=== PATIENT | female | born 1955 | race Caucasian/White ===

== ENCOUNTER → 2017-01-04 | Outpatient (CLI) | payer BC ==
--- NOTE | 2017-01-04 11:33 | CT ---
EXAMINATION TYPE: CT ChestAbdPelvis w con DATE OF EXAM: 01/04/2017 9:53 AM INDICATION: Ovarian cancer COMPARISON: 07/06/2016 CT DLP: 1416.60 mGycm CONTRAST: Performed with Oral Contrast and with IV Contrast, patient injected with 100 ml mL of Omnipaque 300. TECHNIQUE: Axial images at 5 mm thick sections. Reconstructed images in the coronal plane. Delayed images through the kidneys. FINDINGS: CT CHEST: Portion of the thyroid visualized is normal. No suspicious lung nodules or focal infiltrates are present. There is a 0.8 cm calcified granuloma po sterior lateral left mid lung. This appears increasing calcification from the comparison. No enlarged mediastinal or hilar adenopathy is evident. The ascending aorta diameter at the level of the main pulmonary artery is 3.5 cm. The main pulmonary artery diameter at the bifurcation is 3.[address] ABDOMEN: There is a right upper quadrant anterior abdominal wall hernia containing nondilated loop s of contrast-filled colon. Liver: Normal Spleen: Scattered calcified granuloma are within the spleen. Pancreas: Normal Adrenal glands: The adrenal glands are normal. Gallbladder: Surgically absent Kidneys: No masses are evident. No hydronephrosis is present. No cysts are present. Delayed images were obtained through the kidneys, which remain unremarkable. Aorta: Vascular calcification is within the aorta. Inferior vena cava: Normal. CT PELVIS: There is a persistent very low density area within the left psoas muscle adjacent to the i liac wing could represent an air collection which is similar to prior study. Loops of bowel within the abdomen and pelvis are normal. There are loops of bowel which are incom pletely distended or lack oral contrast limiting their evaluation. Appendix: Not visualized Urinary bladder: Normal. Genitourinary structures: Uterus is not identified. Adnexal regions are unremarkable. No free fluid i s within the pelvis. No omental caking is identified. Paracolic gutters appear unremarkable. Osseous structures: No suspicious lytic or sclerotic lesions. IMPRESSIONS: 1. No suspicious changes to suggest metastatic disease. 2. Abdominal wall hernia containing nondilated contrast filled loop of colon is stable from prior.
== END | disposition home or self-care (01) ==
LOC: RADCTMAIN 09:10
PROVIDERS: ATTEND Internal Medicine Hematology & Oncology
DX: C56.1 Malignant neoplasm of right ovary (principal); K43.9 Ventral hernia without obstruction or gangrene
CPT/HCPCS: 71260; 74177; Q9967

== ENCOUNTER → 2017-04-26 | Outpatient (CLI) | payer BC ==
--- NOTE | 2017-04-26 08:39 | CT ---
EXAMINATION TYPE: CT abdomen pelvis w con DATE OF EXAM: 04/26/2017 REFERENCE: Previous CT scan of the chest, abdomen and pelvis dated 01/04/2017. HISTORY: C56.1 ovarian ca HISTORY: Right upper quadrant swelling REFERENCE: NONE CT DLP: 1491 mGy Automated exposure control for dose reduction was used. TECHNIQUE: Helical acquisition through the abdomen and pelvis was obtained following the oral ingesti on of with Oral Contrast and following intravenous administration of 100 mL of Omnipaque 300. The edna a was reformatted in axial, coronal and sagittal projections. FINDINGS: There is minor atelectatic change in the right middle lobe. There is no pleural or pericar dial fluid. The heart is mildly enlarged. Within the abdomen, the liver is prominent measuring 18 cm. This is largely due to a prominent Annika 's lobe. The gallbladder is been removed. There is evidence of old granulomatous disease in the splee n. The pancreas appears normal. Both adrenal glands appear normal. Both kidneys demonstrate function and appear morphologically normal. There is no significant retroperitoneal, iliac or inguinal adenopathy. The bladder is not distended. The uterus and ovaries are not visualized. There is asymmetric thickening of the rectum with the right-sided soft tissues being more prominent t cao the left. There is diffuse thickening of the sigmoid colon and the entire left side of the colon as well as the transverse colon. There is a right paracentral ventral hernia with large bowel peaking into it. The mouth measures 3.5 cm. This is unchanged from previous. A second ventral hernia within the pelvis is present. This contains small bowel. The mouth measures 1.6 cm. The amount of herniated bowel slightly more prominent than on the previous study. Small bowel loops are otherwise normal. No free fluid and no free air is seen. No bony destructive lesion is seen. IMPRESSION: 1. 2 VENTRAL HERNIAS DESCRIBED. SMALL BOWEL PROJECTING INTO THE LOWER HERNIA HAS INCREASED SLIGHT LY FROM PREVIOUS. 2. MILD CARDIOMEGALY. 3. OLD GRANULOMATOUS DISEASE OF THE SPLEEN. 4. ASYMMETRIC THICKENING OF THE RECTUM AND THICKENING OF THE MUCOSAL THROUGHOUT THE LEFT SIDE OF THE COLON INCLUDING THE TRANSVERSE COLON. I COULD NOT EXCLUDE COLITIS. DIRECT VISUALIZATION WOULD BE NATY DAWSON.
== END | disposition home or self-care (01) ==
LOC: RADCTMAIN 07:57
PROVIDERS: ATTEND Internal Medicine Hematology & Oncology
DX: C56.9 Malignant neoplasm of unspecified ovary (principal); K43.9 Ventral hernia without obstruction or gangrene; K63.89 Other specified diseases of intestine
CPT/HCPCS: 74177; Q9967

== ENCOUNTER 2017-05-31 11:47 | Day surgery (SDC) | payer BC ==
[2017-05-25 14:19] VITALS: BMI 30.7
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
[~2017-05-31 11:47] MED LIST: LACTATED RINGERS 1,000 ML IV SCH
[2017-05-31 12:11] VITALS: TEMP 97.4
[2017-05-31] MEDS ORDERED: PROPOFOL 10 MG/ML 20 ML VIAL IV ONE (12:48)
[2017-05-31] MEDS ORDERED: LIDOCAINE 1% INJ 10MG/ML (20 ML MDV) ONE (12:48)
--- NOTE | 2017-05-31 13:16 | P.PCN ---
Date of Procedure: 05/31/17 Preoperative Diagnosis: Postoperative Diagnosis: Procedure(s) Performed: PREOPERATIVE DIAGNOSIS: Yoon's, GERD, screening POSTOPERATIVE DIAGNOSIS: Mild gastritis, small hiatal hernia, Yoon's esophagus, normal colon PROCEDURE: 1. EGD with biopsy 2. Colonoscopy ANESTHESIA: [facility] [place], [place] SURGEON: Reginaldo Keller M.D. SPECIMENS: Antrum, Yoon's ENDOSCOPIC PROCEDURE: The patient was on the endoscopy table in the left decubitus position. The Olympus gastroscope was inserted into the oropharynx and passed under direct visualization to the region of the third portion of the duodenum. From that point the scope was slowly withdrawn inspecting all surfaces carefully. There were no neoplastic inflammatory or polypoid lesions throughout the duodenum. The pylorus was widely patent. The stomach was carefully inspected. There was mild gastritis present. A biopsy of the antrum took place to rule out H. pylori. Retroflexion revealed a small hiatal hernia. The esophagus was examined. The patient had a long segment approximately 4-5 cm of Yoon's changes. Biopsies are taken every 1 cm. The remainder the esophagus appear normal. There were no ulcerations or erosions present. There is no mass lesion. The patient was kept on the endoscopy table in the left decubitus position. The Olympus colonoscope was inserted into the anus and passed under direct visualization to the base of the cecum. The appendiceal orifice was visualized. From that point the scope was slowly withdrawn inspecting all surfaces carefully. There were no neoplastic inflammatory or polypoid lesions throughout the cecum, ascending, transverse, descending, sigmoid and rectum. There was no diverticulosis noted. Digital rectal examination was normal. The patient was taken to the recovery room in stable condition per anesthesia guidelines. RECOMMENDATIONS: Await biopsy results. Consider follow-up upper endoscopy in 2- 3 years. We'll further discuss incisional herniorrhaphy with the patient. Implants: Indications for Procedure: Operative Findings: Description of Procedure:
[2017-05-31 13:20] VITALS: RESP 18
[2017-05-31 13:52] VITALS: BP 164/71; PULSE 57
== END 2017-05-31 14:10 | disposition home or self-care (01) ==
LOC: ORWHC2ENDO 11:47
PROVIDERS: ATTEND Surgery
DX: Z12.11 Encounter for screening for malignant neoplasm of colon (principal); K22.70 Barrett's esophagus without dysplasia; K29.50 Unspecified chronic gastritis without bleeding; K44.9 Diaphragmatic hernia without obstruction or gangrene; K21.9 Gastro-esophageal reflux disease without esophagitis; J44.9 Chronic obstructive pulmonary disease, unspecified; E78.5 Hyperlipidemia, unspecified; I10 Essential (primary) hypertension; E07.9 Disorder of thyroid, unspecified; K58.9 Irritable bowel syndrome, unspecified; M54.9 Dorsalgia, unspecified; G89.29 Other chronic pain; Z85.43 Personal history of malignant neoplasm of ovary; Z92.21 Personal history of antineoplastic chemotherapy; Z79.51 Long term (current) use of inhaled steroids; Z79.899 Other long term (current) drug therapy; Z88.1 Allergy status to other antibiotic agents
CPT/HCPCS: 88305; 88342; 43239; J2001; J2704; G0121

== ENCOUNTER → 2017-08-02 | Outpatient (CLI) | payer BC ==
[2017-08-02 08:02] LABS: EKG EKG PERFORMED
[2017-08-02 08:37] LABS: Potassium 4.5 mmol/L (3.5-5.1)
== END | disposition home or self-care (01) ==
LOC: LABPAT 07:30
PROVIDERS: ATTEND Anesthesiology
DX: Z01.810 Encounter for preprocedural cardiovascular examination (principal); Z01.812 Encounter for preprocedural laboratory examination
CPT/HCPCS: 36415; 84132; 93005

== ENCOUNTER 2017-08-03 06:41 | Observation (INO) | payer BC ==
[2017-07-31 15:45] VITALS: BMI 31.7
[~2017-08-03 06:41] MED LIST changes: +DEXAMETHASONE SOD PHOSPHATE 10 MG/ML 1 ML VIAL IV ONE; +HEPARIN SODIUM,PORCINE 5,000 UNIT/ML 1 ML VIAL SQ ONE; +MIDAZOLAM 2 MG/2 ML VIAL IV PRN; +ONDANSETRON 4 MG/2 ML VIAL IVP ONE; +SCOPOLAMINE 1.5MG/72HR PATCH TRANSDERM ONE; +ceFAZolin 2 GM in SODIUM CHLORIDE 0.9% 100 ML IVPB ONE
[2017-08-03] MEDS ORDERED: MIDAZOLAM 2 MG/2 ML VIAL IVP ONE ×2 (07:22→07:25)
[2017-08-03] MEDS ORDERED: FAMOTIDINE 20 MG/2 ML VIAL IVP ONE (07:22)
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
[2017-08-03] MEDS ORDERED: VECURONIUM 10 MG VIAL IV ONE (07:53)
[2017-08-03] MEDS ORDERED: NEOSTIGMINE 1 MG/ML 10 ML VIAL ONE (07:53)
[2017-08-03] MEDS ORDERED: LIDOCAINE 1% INJ 10MG/ML (20 ML MDV) ONE (07:53)
[2017-08-03] MEDS ORDERED: PROPOFOL 10 MG/ML 20 ML VIAL IV ONE (07:53)
[2017-08-03] MEDS ORDERED: MIDAZOLAM 2 MG/2 ML VIAL ONE (07:53)
[2017-08-03] MEDS ORDERED: SUCCINYLCHOLINE CHLORIDE 100 MG/5 ML SYR IV ONE (07:53)
[2017-08-03] MEDS ORDERED: GLYCOPYRROLATE 0.2 MG/ML 2 ML VIAL ONE (07:53)
[2017-08-03] MEDS ORDERED: fentaNYL (PF) 50 MCG/ML 2 ML AMP ONE (07:53)
[2017-08-03] MEDS ORDERED: HYDROmorphone (PF) 1 MG/ML ONE (07:53)
[2017-08-03] MEDS ORDERED: BUPIVACAINE-EPI 0.5%-1:200,000 10 ML VIAL SQ ONE ×2 (08:17)
[2017-08-03] MEDS ORDERED: LACTATED RINGERS 1,000 ML IV ONE (09:31)
[2017-08-03] MEDS: HYDROmorphone 1 MG/ML 1 ML SYRINGE IVP PRN ×6 (10:43→23:46)
[2017-08-03] MEDS ORDERED: NALOXONE 0.4 MG/ML 1 ML VIAL IV PRN (11:03)
[2017-08-03] MEDS ORDERED: ONDANSETRON 4 MG/2 ML VIAL IVP PRN (11:03)
--- NOTE | 2017-08-03 11:13 | P.OP ---
Date of Procedure: 08/03/17 Preoperative Diagnosis: Postoperative Diagnosis: Procedure(s) Performed: PREOPERATIVE DIAGNOSIS: Incarcerated incisional hernia 2 POSTOPERATIVE DIAGNOSIS: Same PROCEDURE: Repair incarcerated incisional hernia 2 with mesh SURGEON: Krishna EBL: Minimal ANESTHESIA: General COMPLICATIONS: None OPERATIVE PROCEDURE: Patient was placed in the operating table in the supine position. The patient was placed under general anesthesia at that time. The upper abdominal incision was first addressed. The prior incision was incised using a scalpel. Dissection through the saphenous fat took place using electrocautery. The patient's hernia sac was identified and excised. The defect measured 6 x 4 cm oval in shape horizontal. There were some adhesions to the bowel that was present within the hernia sac. These were lysed sharply. There were some adhesions between the bowel and the undersurface of the fascia circumferentially that were also lysed. Once I had adequate dissection a Ventrio ST patch was utilized measuring proximally 11 cm. This was sutured to the fascia using trans-fascial 2-0 Nurolon sutures. Care was taken to avoid injury to the small bowel. Once the mesh was secured the fascia was closed horizontally using [id number] 0 Ethibond sutures. A drain was placed above the level of the fascia exiting through the right mid abdominal wall. This was sutured to the skin using a 2-0 Nurolon stitch. Subcutaneous tissues at the operative site were closed using 3-0 Vicryl sutures. The skin was closed using les. Our gloves were changed at that time. Next a small vertical incision was made in the suprapubic location. Dissection through the subcutaneous tissues took place using Q cautery. A small incarcerated hernia was identified and the hernia sac was removed. Adhesions were again lysed sharply. A 4.3 cm ventral X mesh was utilized. This was sutured to the fascia using 2-0 Nurolon trans-fascial sutures as well. The fascial defect was closed horizontally using [id number] 0 Ethibond sutures. The subcutaneous tissues were closed using 3-0 Vicryl sutures and the skin again closed using les. Sterile dressings were applied. DISPOSITION: Stable to recovery room Implants: Indications for Procedure: Operative Findings: Description of Procedure:
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
[2017-08-03] MEDS: ETODOLAC 200 MG CAPSULE PO SCH ×2 (16:14→20:27)
[2017-08-03] MEDS: D5-0.45% NACL WITH KCL 20MEQ/L 1,000 ML IV SCH ×2 (16:14→23:59)
[2017-08-03] MEDS: HEPARIN SODIUM,PORCINE 5,000 UNIT/ML 1 ML VIAL SQ SCH ×2 (16:17→23:48)
[2017-08-03] MEDS: PRAVASTATIN SODIUM 40 MG TAB PO SCH (20:25)
[2017-08-03] MEDS: FAMOTIDINE 20 MG TAB PO SCH (20:26)
[2017-08-03] MEDS: SYMBICORT 160-4.5 MCG INHALER INHALATION SCH (20:42)
[2017-08-03] MEDS ORDERED: ATENOLOL 25 MG TAB PO SCH (21:00)
[2017-08-03] MEDS ORDERED: ALPRAZolam 0.25 MG TAB PO PRN (21:00)
[2017-08-04] MEDS: HYDROmorphone 1 MG/ML 1 ML SYRINGE IVP PRN ×5 (03:20→22:20)
[2017-08-04] MEDS: IPRATROPIUM-ALBUTEROL 3 ML NEB INHALATION SCH ×4 (06:02→19:41)
[2017-08-04] MEDS: LEVOTHYROXINE 88 MCG TAB PO SCH (06:13)
[2017-08-04 06:40] LABS: Basophils % (A) 0 %; CH 33.1; CHCM 33.4; Eosinophils % (A) 0 %; HGB 12.1 gm/dL (11.4-16.0); Luc # (Auto) 0.16; Luc % (Auto) 2; Lymphocytes # (A) 1.2 k/uL (1.0-4.8); Lymphocytes % (A) 13 %; MCH 34.4 pg (25.0-35.0); MCHC 34.5 g/dL (31.0-37.0); MCV 99.7 fL (80.0-100.0); Mean Platelet Volume 6.9; Monocytes # (A) 0.5 k/uL (0-1.0); Monocytes % (A) 6 %; Neutrophils # (A) 7.5 k/uL (1.3-7.7); Neutrophils % (A) 80 %; RBC 3.51 m/uL (3.80-5.40); RDW 12.6 % (11.5-15.5); WBC 9.5 k/uL (3.8-10.6); WBC (Perox) 9.68
[2017-08-04 06:56] LABS: Anion Gap 6 mmol/L; Blood Urea Nitrogen 11 mg/dL (7-17); Calcium 9.4 mg/dL (8.4-10.2); Carbon Dioxide 26 mmol/L (22-30); Chloride 106 mmol/L (98-107); Glucose 115 mg/dL (74-99); Non-African American GFR(MDRD) >60 (>60 ml/min/1.73 sqM); Potassium 4.6 mmol/L (3.5-5.1); Sodium 138 mmol/L (137-145)
[2017-08-04] MEDS: D5-0.45% NACL WITH KCL 20MEQ/L 1,000 ML IV SCH ×3 (08:06→18:41)
[2017-08-04] MEDS: HEPARIN SODIUM,PORCINE 5,000 UNIT/ML 1 ML VIAL SQ SCH ×2 (08:18→17:17)
[2017-08-04] MEDS: POTASSIUM CHLORIDE ER 10 MEQ TAB.ER.PRT PO SCH (08:19)
[2017-08-04] MEDS: FUROSEMIDE 40 MG TAB PO SCH (08:19)
[2017-08-04] MEDS: ETODOLAC 200 MG CAPSULE PO SCH ×3 (08:19→22:10)
[2017-08-04] MEDS: FAMOTIDINE 20 MG TAB PO SCH ×2 (08:19→19:52)
[2017-08-04] MEDS: HYDROcodone/APAP 5-325MG 1 EACH TAB PO PRN ×2 (08:20→19:50)
[2017-08-04] MEDS ORDERED: PANTOPRAZOLE 40 MG/10 ML VIAL IV SCH (09:00)
[2017-08-04] MEDS ORDERED: LOSARTAN 25 MG TAB PO SCH (09:00)
[2017-08-04] MEDS: SYMBICORT 160-4.5 MCG INHALER INHALATION SCH ×2 (09:41→19:41)
[2017-08-04] MEDS ORDERED: MULTIVITAMINS, THERA 1 EACH TAB PO SCH (12:00)
--- NOTE | 2017-08-04 12:29 | P.PN ---
Subjective This is a pleasant 62-year-old female who underwent elective incisional hernia repair x2 with mesh with Dr. Keller on 08-03-17. Dr. Fisher was consulted for medical management. Patient is a history of hypertension, hyperlipidemia, hypothyroidism, COPD, GERD cholecystectomy and hysterectomy due to ovarian cancer through midline incisions. 08/04/2017: Patient is resting comfortably today. Her daughter and sister are at bedside. She hasn't really eaten much. She indicates she's been getting up frequently for toileting on her own. Her pain is improved. If switched her from Dilaudid to [place]. She denies any chest pains pressures or shortness of breath. She is complaining of some flushing today to her chest and face. This seems to be started after the [place]. Objective - Vital Signs Vital signs: Vital Signs Temp 97.7 F 08/04/17 11:30 Pulse 55 L 08/04/17 11:30 Resp 20 08/04/17 11:30 BP 120/68 08/04/17 11:30 Pulse Ox 95 08/04/17 11:30 Intake & Output 08/03/17 08/04/17 08/04/17 18:59 06:59 18:59 Intake Total 1740 1200 400 Output Total 155 25 Balance 1585 1175 400 Intake: IV 1500 Oral 240 1200 400 Output: Drainage 55 25 Right Upper Abdomen 55 25 Urine 50 Estimated Blood Loss 50 Other: # Voids 1 2 1 - Exam General: The patient is awake and alert, in no distress, and does not appear acutely ill. Neck: The neck is supple, there is no thyromegaly, lymphadenopathy, tenderness or JVD. Cardiovascular: S1S2 is normal, There is a regular rate and rhythm. No murmur, rub or gallop is appreciated. Respiratory: Lungs are somewhat coarse to auscultation bilaterally, respirations are non-labored, breath sounds are equal. Gastrointestinal: Soft, non-distended, abdominal binder in place, TASHA drain in place. Further exam was deferred to surgery. Musculoskeletal: Normal ROM, no tenderness, There is no pedal edema. There is no calf tenderness or swelling. No cords were appreciated. Neurological: CN II-XII intact, there are no obvious motor or sensory deficits. Coordination appears grossly intact. Speech is normal. Skin: Skin is warm and dry and erythematous to the cheeks and chest. This is blanchable pressure. - Labs CBC & Chem 7: 08/04/17 06:18 08/04/17 06:18 Labs: Abnormal Lab Results - Last 24 Hours (Table) 08/04/17 08/04/17 Range/Units 06:18 06:18 RBC 3.51 L (3.80-5.40) m/uL Glucose 115 H (74-99) mg/dL Assessment and Plan Plan: Incarcerated incisional hernia, status post surgical repair with mesh, postop day 1: She has TASHA drain abdominal binder placed. Surgery is managing. She is currently on [place], Etodolac, and hydromorphone for pain. Essential hypertension: Continue losartan, atenolol, Lasix Hyperipidemia: Continue pravastatin Hypothyroidism: She'll continue on 88 g Synthroid Chronic COPD: Continue DuoNeb updrafts and Symbicort as prescribed Gerd/GI prophylaxis: Continue pantoprazole and when necessary Zofran. DVT prophylaxis: Continue subcutaneous heparin History of ovarian carcinoma Medically she is stable. Patient can be discharged home in the a.m. If there are no significant changes.
[2017-08-04] MEDS ORDERED: diphenhydrAMINE 25 MG CAP PO PRN (12:38)
--- NOTE | 2017-08-04 13:55 | P.PN ---
Progress Note - Text The patient is status post open repair of incisional hernia. She still has significant incisional pain. She's had poor oral intake. On exam her vital signs are stable. Her abdomen soft. Her incision site is clean dry intact. The patient will be discharged home tomorrow if she feels well.
[2017-08-04] MEDS: PRAVASTATIN SODIUM 40 MG TAB PO SCH (19:52)
[2017-08-05] MEDS: HEPARIN SODIUM,PORCINE 5,000 UNIT/ML 1 ML VIAL SQ SCH ×2 (00:05→08:05)
[2017-08-05] MEDS: HYDROcodone/APAP 5-325MG 1 EACH TAB PO PRN ×2 (02:51→09:22)
[2017-08-05] MEDS ORDERED: LOSARTAN 25 MG TAB PO SCH (06:00)
[2017-08-05] MEDS: LEVOTHYROXINE 88 MCG TAB PO SCH (06:52)
[2017-08-05] MEDS: HYDROmorphone 1 MG/ML 1 ML SYRINGE IVP PRN (06:53)
[2017-08-05] MEDS ORDERED: PANTOPRAZOLE 40 MG TABLET PO SCH (07:30)
[2017-08-05 08:05] VITALS: BP 121/60; PULSE 60; RESP 16; TEMP 98.7
[2017-08-05] MEDS: ETODOLAC 200 MG CAPSULE PO SCH (08:05)
[2017-08-05] MEDS: FAMOTIDINE 20 MG TAB PO SCH (08:05)
[2017-08-05] MEDS: D5-0.45% NACL WITH KCL 20MEQ/L 1,000 ML IV SCH (08:05)
[2017-08-05] MEDS: POTASSIUM CHLORIDE ER 10 MEQ TAB.ER.PRT PO SCH (08:05)
[2017-08-05] MEDS: FUROSEMIDE 40 MG TAB PO SCH (08:19)
[2017-08-05] MEDS: SYMBICORT 160-4.5 MCG INHALER INHALATION SCH (08:38)
[2017-08-05] MEDS: IPRATROPIUM-ALBUTEROL 3 ML NEB INHALATION SCH (08:38)
--- NOTE | 2017-08-05 08:59 | P.PN ---
Progress Note - Text The patient is feeling better. She wishes to be discharged home. Her pain is under good control. On exam her vital signs are still. Her abdomen soft. Her incision is clean dry and intact. Patiently discharged home. She'll follow-up Dr. Keller next week.
[2017-08-05] MEDS ORDERED: ATENOLOL 12.5 MG TAB PO SCH (17:00)
== END 2017-08-05 09:25 | disposition home or self-care (01) ==
LOC: OR 06:41 → 6PED 10:12 → OR 22:35 → 6PED 22:35
PROVIDERS: ADMIT Surgery; ATTEND Surgery
DX: K43.0 Incisional hernia with obstruction, without gangrene (principal); K21.9 Gastro-esophageal reflux disease without esophagitis; J44.9 Chronic obstructive pulmonary disease, unspecified; I10 Essential (primary) hypertension; E78.5 Hyperlipidemia, unspecified; F41.9 Anxiety disorder, unspecified; K58.9 Irritable bowel syndrome, unspecified; E66.9 Obesity, unspecified; E03.9 Hypothyroidism, unspecified; G89.29 Other chronic pain; Z85.43 Personal history of malignant neoplasm of ovary; Z86.73 Personal history of transient ischemic attack (TIA), and cerebral infarction without residual deficits; Z87.891 Personal history of nicotine dependence; Z79.899 Other long term (current) drug therapy; Z79.51 Long term (current) use of inhaled steroids; Z88.0 Allergy status to penicillin; Z68.31 Body mass index [BMI] 31.0-31.9, adult
CPT/HCPCS: 49561; 49568; 94640 ×4; 94760 ×2; 80048; 85025; 88302; G0378 ×3; C1781 ×2; J2250; J1644 ×3; J1100; J0690; J2405; J1170 ×3; C9113

== ENCOUNTER → 2017-09-13 | Outpatient (CLI) | payer BC ==
--- NOTE | 2017-09-13 13:39 | MM ---
Reason for exam: screening (asymptomatic). Last mammogram was performed 11 years ago. History: Patient is postmenopausal. Physical Findings: A clinical breast exam by your physician is recommended on an annual basis and results should be correlated with mammographic findings. MG Screening Mammo w CAD Bilateral CC and MLO view(s) were taken. Prior study comparison: January 04, 2016, mammogram, performed at [facility]. October 24, 2011, mammogram, performed at [facility]. Finding: There are typically benign calcifications in both breasts. No significant changes in finding since January 04, 2016 and October 24, 2011. ASSESSMENT: Benign, BI-RAD 2 RECOMMENDATION: Routine screening mammogram of both breasts in 1 year.
== END | disposition home or self-care (01) ==
LOC: RADMAMWWP 06:48
PROVIDERS: ATTEND Internal Medicine Hematology & Oncology
DX: Z12.31 Encounter for screening mammogram for malignant neoplasm of breast (principal)

== ENCOUNTER → 2018-01-07 | Outpatient (CLI) | payer BC ==
--- NOTE | 2018-01-07 12:48 | CT ---
EXAMINATION TYPE: CT ChestAbdPelvis w con DATE OF EXAM: 01/07/2018 INDICATION: Ovarian cancer COMPARISON: 04/26/2017 CT DLP: 1339.20 mGycm CONTRAST: Performed with Oral Contrast and with IV Contrast, patient injected with 100 mL of Omnipaque 300. TECHNIQUE: Axial images at 5 mm thick sections. Reconstructed images in the coronal plane. Delayed images through the kidneys. FINDINGS: CT CHEST: Portion of the thyroid visualized is normal. No suspicious lung nodules or focal infiltrates are present. There is a 0.7 cm calcification in the p osterior lateral left lung base compatible with calcified granuloma. No enlarged mediastinal or hilar adenopathy is evident. Some shotty lymphadenopathy is in the pretrac heal space The ascending aorta diameter at the level of the main pulmonary artery is 3.2 cm. The main pulmonary artery diameter at the bifurcation is 3.[address] ABDOMEN: Subcutaneous midline changes are evident likely related to prior surgery. Liver: Normal Spleen: Scattered calcifications are within the spleen. Pancreas: Normal Adrenal glands: The adrenal glands are normal. Gallbladder: Surgically absent Kidneys: No masses are evident. No hydronephrosis is present. No cysts are present. Delayed images were obtained through the kidneys, which remain unremarkable. Aorta: Vascular calcification is within the aorta. Inferior vena cava: Normal. CT PELVIS: Loops of bowel within the abdomen and pelvis are normal. Contrast extends to the rectum. Few scat tered diverticuli are present. There are some loops of bowel with incomplete distention limiting thei r evaluation. Mild wall thickening of the descending colon and sigmoid colon is not excluded. There i s also incomplete distention which may account for portion of the study finding. Appendix: Normal as visualized. Urinary bladder: Normal. Genitourinary structures: Uterus and ovaries are not identified. Osseous structures: No suspicious lytic or sclerotic lesions. IMPRESSIONS: 1. No suspicious changes to suggest metastatic ovarian carcinoma. 2. Previous anterior abdominal wall hernias have been repaired. 3. Mild colitis of the descending colon and sigmoid colon is not excluded. This could be related to i ncomplete distention with contrast.
== END | disposition home or self-care (01) ==
LOC: RADCTMAIN 07:11
PROVIDERS: ATTEND Internal Medicine Hematology & Oncology
DX: C56.1 Malignant neoplasm of right ovary (principal)
CPT/HCPCS: 71260; 74177; Q9967

== ENCOUNTER → 2018-04-18 | Outpatient (CLI) | payer BC ==
--- NOTE | 2018-04-18 08:34 | CT ---
EXAMINATION TYPE: CT ChestAbdPelvis w con DATE OF EXAM: 04/18/2018 COMPARISON: January 07, 2018 HISTORY: Ovarian CA follow up, possible hernia CT DLP: 1649.2 mGycm CONTRAST: CT scan of the chest, abdomen and pelvis is performed with Oral Contrast and with IV Contrast, patien t injected with 100 mL of Isovue 300. CT Chest: LUNGS: The lungs are clear and free of infiltrate or atelectasis. Calcified nodule left lower lobe. S cattered linear areas of parenchymal scar and/or atelectasis. No pulmonary nodule or mass is detected . No pleural effusion or CT evidence of interstitial lung disease. MEDIASTINUM: Thoracic aorta is of normal caliber. The heart is enlarged. No evidence for mediastin al mass or adenopathy. HILAR STRUCTURES: No evidence for mass. No hilar adenopathy is appreciated. OTHER: No significant abnormality. CONTRAST CT ABDOMEN AND PELVIS FINDINGS: LIVER/GB: The gallbladder surgically absent. No space occupying hepatic lesion. Biliary tree is of no rmal caliber. PANCREAS: No inflammation. No distinct mass. SPLEEN: Regional area of decreased attenuation involving the body and lower pole of the spleen measur ing 8 x 3.6 cm with reflect an area of infarct. Underlying mass is difficult to exclude however. This is a new finding. ADRENALS: No nodule. No thickening. KIDNEYS/BLADDER: No hydronephrosis. No nephrolithiasis. No disctinct renal mass. BOWEL: Normal appendix. Normal bowel caliber. No inflammation. GENITAL ORGANS: Postoperative changes of hysterectomy and bilateral oophorectomy. Scar tissue left pe lvic sidewall with a focus of air is unchanged.. LYMPH NODES: No greater than 1cm abdominal or pelvic lymph nodes are appreciated. AORTA: No significant abnormality. OSSEOUS STRUCTURES: No significant abnormality is seen. OTHER: No significant additional abnormality is seen. IMPRESSION: 1. Regional decreased attenuation within the spleen may reflect infarct. This is a new finding. Under lying mass is difficult to exclude however. 2. No evidence for tumor recurrence within the pelvis.
== END | disposition home or self-care (01) ==
LOC: RADCTMAIN 06:18
PROVIDERS: ATTEND Internal Medicine Hematology & Oncology
DX: C56.1 Malignant neoplasm of right ovary (principal); R93.8 Abnormal findings on diagnostic imaging of other specified body structures; Z88.0 Allergy status to penicillin
CPT/HCPCS: 71260; 74177; Q9967

== ENCOUNTER → 2018-09-16 | Outpatient (CLI) | payer BC ==
--- NOTE | 2018-09-18 09:54 | MM ---
Reason for exam: screening (asymptomatic). Last mammogram was performed 1 year ago. History: Patient is postmenopausal and has history of ovarian cancer at age 60. Physical Findings: A clinical breast exam by your physician is recommended on an annual basis and results should be correlated with mammographic findings. MG Screening Mammo w CAD Bilateral CC and MLO view(s) were taken. Prior study comparison: September 13, 2017, bilateral MG screening mammo w CAD. January 04, 2016, mammogram, performed at [facility]. The breast tissue is heterogeneously dense. This may lower the sensitivity of mammography. No suspicious abnormality. No significant changes when compared with prior studies. ASSESSMENT: Negative, BI-RAD 1 RECOMMENDATION: Routine screening mammogram of both breasts in 1 year.
== END | disposition home or self-care (01) ==
LOC: RADMAMWWP 06:50
PROVIDERS: ATTEND Internal Medicine Hematology & Oncology
DX: Z12.31 Encounter for screening mammogram for malignant neoplasm of breast (principal)
CPT/HCPCS: 77067

== ENCOUNTER → 2018-10-01 | Outpatient (CLI) | payer BC ==
--- NOTE | 2018-10-01 10:11 | CT ---
EXAMINATION TYPE: CT ChestAbdPelvis w con DATE OF EXAM: 10/01/2018 COMPARISON: CT chest abdomen and pelvis April 18, 2018 and older studies. HISTORY: Ovarian cancer progress study, last chemotherapy [address] DLP: 1590.3 mGycm. Automated Exposure Control for Dose Reduction was Utilized. CONTRAST: CT scan of the thorax, abdomen and pelvis is performed with oral and with IV Contrast, patient inject ed with 100 mL of Isovue 300. FINDINGS: LUNGS: There is bilateral lower lung linear scarring and/or atelectasis. Stable since millimeter calc ified subpleural nodule left lower lobe axial image 29. No suspicious noncalcified parenchymal nodule or mass is present There is no pleural effusion or pneumothorax seen. The tracheobronchial tree is patent. MEDIASTINUM: There are no greater than 1 cm noncalcified hilar or mediastinal lymph nodes. Prominent calcified left hilar lymph nodes are redemonstrated. No significant pericardial effusion is seen. St able somewhat small size thyroid with inferior 3 mm calcification axial image 4. Focal mild coronary artery calcification axial image 23 is redemonstrated, noted marked for coronary artery disease in th e proximal LAD. Stable mild cardiomegaly. OTHER: No additional significant abnormality is seen. LIVER/GB: Cholecystectomy clips are redemonstrated. PANCREAS: No significant abnormality is seen. SPLEEN: Calcifications throughout the spleen are redemonstrated, finding consistent with product of o ld granulomatous disease. Improved homogeneous perfusion of spleen noted on current study. ADRENALS: No significant abnormality is seen. KIDNEYS: Some cortical thinning in both kidneys is present. There is symmetric cortical medullary upt ebonie and excretion without evidence of hydronephrosis bilaterally. Bladder is poorly distended and hans s suboptimally evaluated. There is mild concentric wall thickening noted. Correlate clinically to exc lude acute cystitis. BOWEL: Stable small size hiatal hernia. Low-lying cecum into right pelvis is present. No suspicious s mall or large bowel dilatation. A few diverticula in the left and sigmoid colon are present. GENITAL ORGANS: Uterus is surgically absent. LYMPH NODES: No new greater than 1cm abdominal or pelvic lymph nodes are appreciated. Stable prominen t but subcentimeter bilateral groin lymph nodes. OSSEOUS STRUCTURES: Prominent Schmorl node or height loss inferior posterior T12 endplate is redemons trated sagittal image 65 along left aspect. OTHER: Scar tissue in the anterior abdominal wall midline near umbilicus is redemonstrated. IMPRESSION: No suspicious new mass or adenopathy is seen to suggest local or metastatic neoplastic re currence.
== END | disposition home or self-care (01) ==
LOC: RADCTMAIN 08:04
PROVIDERS: ATTEND Internal Medicine Hematology & Oncology
DX: Z03.89 Encounter for observation for other suspected diseases and conditions ruled out (principal); C56.1 Malignant neoplasm of right ovary
CPT/HCPCS: 71260; 74177; Q9967

== ENCOUNTER → 2019-01-02 | Outpatient (CLI) | payer BC ==
--- NOTE | 2019-01-02 12:01 | BD ---
EXAMINATION TYPE: Axial Bone Density DATE OF EXAM: 01/02/2019 COMPARISON: NONE CLINICAL HISTORY: Height: 63 Weight: 200.5 FRAX RISK QUESTIONS: Alcohol (3 or more units per day): no Family History (Parent hip fracture): yes Glucocorticoids (More than 3mos): no (Ex: prednisone, prednisolone, methylprednisolone, dexamethasone, and hydrocortisone). History of Fracture in Adulthood: yes Secondary Osteoporosis: 1. Type 1 Diabetes: no 2. Hyperthyroidism: no 3. Menopause before 45: no 4. Malnutrition: no 5. Chronic liver disease: no Rheumatoid Arthritis: no Current Tobacco Use: no RISK FACTORS HISTORY OF: Hip Fracture (Right/Left): yes left When: 1977 Family History of Osteoporosis: no Active: yes Diet low in dairy products/other sources of calcium: yes Postmenopausal woman: age 51 Lost more than 2 inches in height since high school: yes MEDICATIONS: bp meds/ water pill Thyroid Medications: levothyroxine How Lon years Additional History: hx of ovarian cancer- last chemo treatment was 2 years ago EXAM MEASUREMENTS: Bone mineral densitometry was performed using the [employer] System. Bone mineral density as measured about the Lumbar spine is: ----- L1-L4(G/cm2): 0.972 T Score Values are as follows: ----- L2: -1.8 ----- L3: -1.3 ----- L4: -2.4 ----- L1-L4: -1.7 Bone mineral density : baseline Bone mineral density about the R hip (g/cm2): 0.792 T Score values are as follows: -----R Neck: -1.8 -----R Total: -1.0 Bone mineral density : baseline IMPRESSION: Osteopenia NOTE: T-SCORE=SD OF THE YOUNG ADULT MEAN.
== END | disposition home or self-care (01) ==
LOC: RADBDWWP 07:01
PROVIDERS: ATTEND Family Medicine
DX: M85.851 Other specified disorders of bone density and structure, right thigh (principal); M85.88 Other specified disorders of bone density and structure, other site
CPT/HCPCS: 77080

== ENCOUNTER → 2019-04-02 | Outpatient (CLI) | payer BC ==
--- NOTE | 2019-04-02 10:13 | CT ---
EXAMINATION TYPE: CT ChestAbdPelvis w con DATE OF EXAM: 04/02/2019 COMPARISON: 10/01/2018 HISTORY: Ovarian cancer CT DLP: 1612 mGycm CONTRAST: CT scan of the chest, abdomen and pelvis is performed with Oral Contrast and with IV Contrast, patien t injected with 100 mL of Isovue 300. CT Chest: LUNGS: The lungs are clear and free of infiltrate or atelectasis. Calcified granuloma left lower lobe . No suspicious or concerning pulmonary nodules at this time. No pleural effusion or CT evidence of i nterstitial lung disease. MEDIASTINUM: Thoracic aorta is of normal caliber. The heart is not enlarged. No evidence for media stinal mass or adenopathy. HILAR STRUCTURES: Calcified left hilar lymph node. No evidence for mass. No hilar adenopathy is appr eciated. OTHER: No significant abnormality. CONTRAST CT ABDOMEN AND PELVIS FINDINGS: LIVER/GB: No calcified gallstones. No space occupying hepatic lesion. Biliary tree is of normal ca liber. PANCREAS: No inflammation. No distinct mass. SPLEEN: No splenic enlargement. No lesion seen. ADRENALS: No nodule. No thickening. KIDNEYS/BLADDER: No hydronephrosis. No nephrolithiasis. No disctinct renal mass. BOWEL: Normal appendix. Normal bowel caliber. No inflammation. GENITAL ORGANS: Postoperative changes of hysterectomy and bilateral oophorectomy. LYMPH NODES: No greater than 1cm abdominal or pelvic lymph nodes are appreciated. AORTA: No significant abnormality. OSSEOUS STRUCTURES: No significant abnormality is seen. OTHER: No significant additional abnormality is seen. IMPRESSION: 1. Stable appearance of the chest abdomen and pelvis without evidence for metastatic disease at this time.
== END ==
LOC: RADCTMAIN 07:32
PROVIDERS: ATTEND Internal Medicine Hematology & Oncology
DX: Z03.89 Encounter for observation for other suspected diseases and conditions ruled out (principal); C56.1 Malignant neoplasm of right ovary
CPT/HCPCS: 71260; 74177; Q9967 ×2

== ENCOUNTER → 2019-12-29 | Outpatient (CLI) | payer BC ==
--- NOTE | 2019-12-29 10:41 | US ---
EXAMINATION TYPE: US venous doppler duplex LE LT DATE OF EXAM: 12/29/2019 10:31 AM COMPARISON: NONE CLINICAL HISTORY: left lower ext, Extreme pain and swelling M79.662. bone on bone and needed a knee r eplacement, pain and swelling to leg, no h/o dvt SIDE PERFORMED: Left TECHNIQUE: The lower extremity deep venous system is examined utilizing real time linear array sonog naina with graded compression, doppler sonography and color-flow sonography. VESSELS IMAGED: External Iliac Vein (EIV) Common Femoral Vein Deep Femoral Vein Greater Saphenous Vein * Femoral Vein Popliteal Vein Small Saphenous Vein * Proximal Calf Veins (* superficial vessels) Left Leg: Appears negative for DVT Grayscale, color doppler, spectral doppler imaging performed of the deep veins of the left lower extr emity. There is normal flow, compressibility, vascular waveforms. IMPRESSION: No sonographic evidence of deep venous thrombosis within the left lower extremity.
== END | disposition home or self-care (01) ==
LOC: RADUSWWP 10:13
PROVIDERS: ATTEND Orthopaedic Surgery
DX: M25.562 Pain in left knee (principal); M17.12 Unilateral primary osteoarthritis, left knee; I10 Essential (primary) hypertension; E78.5 Hyperlipidemia, unspecified; Z85.9 Personal history of malignant neoplasm, unspecified; E03.9 Hypothyroidism, unspecified; J98.4 Other disorders of lung; I80.9 Phlebitis and thrombophlebitis of unspecified site; Z87.891 Personal history of nicotine dependence

== ENCOUNTER 2020-08-03 15:28 | Observation (INO) | payer BC ==
[2020-08-03] MEDS ORDERED: SODIUM CHLORIDE 0.9% 1,000 ML IV STA (15:47)
[2020-08-03 16:06] LABS: Basophils # (A) 0.1 k/uL (0-0.2); Basophils % (A) 1 %; Eosinophils # (A) 0.6 k/uL (0-0.7); Eosinophils % (A) 5 %; HGB 14.4 gm/dL (11.4-16.0); Lymphocytes # (A) 1.8 k/uL (1.0-4.8); Lymphocytes % (A) 16 %; MCH 33.1 pg (25.0-35.0); MCHC 33.4 g/dL (31.0-37.0); Mean Platelet Volume 6.7; Monocytes # (A) 0.6 k/uL (0-1.0); Monocytes % (A) 5 %; Neutrophils % (A) 71 %; Platelet Count 266 k/uL (150-450); RBC 4.34 m/uL (3.80-5.40); RDW 12.3 % (11.5-15.5); WBC 11.3 k/uL (3.8-10.6)
[2020-08-03 16:12] LABS: Potassium 3.7 mmol/L (3.5-5.1)
[2020-08-03 16:13] LABS: ALT 22 U/L (4-34); AST 36 U/L (14-36); African American GFR (CKD) >90 (>60 ml/min/1.73 sqM); Albumin 4.5 g/dL (3.5-5.0); Alkaline Phosphatase 99 U/L (38-126); Anion Gap 12 mmol/L; Blood Urea Nitrogen 13 mg/dL (7-17); Calcium 9.8 mg/dL (8.4-10.2); Carbon Dioxide 23 mmol/L (22-30); Chloride 104 mmol/L (98-107); Creatine Kinase 57 U/L (30-135); Glucose 114 mg/dL (74-99); Magnesium 1.7 mg/dL (1.6-2.3); Non-African American GFR(CKD) >90 (>60 ml/min/1.73 sqM); Phosphorus 3.2 mg/dL (2.5-4.5); Sodium 139 mmol/L (137-145); Total Bilirubin 0.6 mg/dL (0.2-1.3); Total Protein 7.7 g/dL (6.3-8.2)
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
[2020-08-03 16:31] LABS: INR 0.9 (<1.2); Partial Thromboplastin Time 22.4 sec (22.0-30.0); Prothrombin Time 9.4 sec (9.0-12.0)
--- NOTE | 2020-08-03 17:26 | CT ---
CT CHEST FOR PULMONARY EMBOLISM. EXAMINATION TYPE: CT angio chest DATE OF EXAM: 08/03/2020 INDICATION: Dizziness and hypertension. CT DLP: 686.3 mGycm, Automated exposure control for dose reduction was used. CONTRAST: Patient injected with 100 mL of Isovue 370. COMPARISON: 01/19/2020 TECHNIQUE: CT of the chest is performed on a spiral scan at 2 mm thick sections. Study is performed with intravenous contrast timed for evaluation for pulmonary embolism. This will limit additional po rtions of the evaluation. 3-D MIP images reconstructed by the technologist are reviewed on the compu ter in the coronal and sagittal planes. FINDINGS: No persistent filling defects are evident to suggest an acute pulmonary embolism. No mediastinal or hilar adenopathy enlarged by CT criteria is evident. The ascending aorta diameter at the level of the main pulmonary artery is 3.6 cm. The main pulmonary artery diameter at the bifur cation is 3.0 cm. There is a 0.6 cm calcified granuloma posterior lateral left lung base. Series [address] section through the upper abdomen are unremarkable. IMPRESSIONS: 1. No acute pulmonary embolism. 2. Calcified granuloma. 3. No acute pulmonary process.
--- NOTE | 2020-08-03 17:32 | CT ---
EXAMINATION TYPE: CT brain wo con DATE OF EXAM: 08/03/2020 COMPARISON: None INDICATION: Dizziness and hypertension. DLP: 1111.1 mGycm, Automated exposure control for dose reduction was used. CONTRAST: None CT of the brain is performed utilizing 3 mm thick sections through the posterior fossa and 3 mm thick sections through the remaining calvarium. Study is performed within 24 hours of arrival to the hosp ital. No abnormal hyperdensity is present to suggest an acute intracranial hemorrhage. There is an extra-axial calcification extending from the vertex. No significant mass effect on the ad jacent brain is evident. This could be a osseous growth or meningioma. This is not follow the typical obtuse angles with a dural tail. This could be further evaluated with MRI at an outpatient basis. No acute infarcts are evident. Ventricles and sulci are appropriate for the patient age. Air-fluid levels are within the bilateral maxillary sinuses. Correlate for acute maxillary sinusitis. There is opacification of the nasal passages. Ethmoid air cell opacification is present. There is an air-fluid level within the sphenoid sinus which can be compatible with acute sinusitis. The left fro ntal sinus is clear. Right frontal sinus is aplastic. Mastoid air cells are clear. IMPRESSIONS: 1. No acute intracranial process. 2. Calcification within the posterior left vertex is extra-axial. This is not a classic meningioma. C onsider additional evaluation with contrast MRI of the brain. 3. Acute paranasal sinusitis.
[2020-08-03] MEDS ORDERED: ASPIRIN 325 MG TAB PO STA (18:16)
[2020-08-03] MEDS ORDERED: LABETALOL 5 MG/ML VIAL MDV IVP STA (18:19)
[2020-08-03] MEDS ORDERED: hydrALAZINE HCL 20 MG/ML 1 ML VIAL IVP STA (18:19)
[2020-08-03] MEDS ORDERED: hydrALAZINE HCL 20 MG/ML 1 ML VIAL IVP PRN (18:22)
[2020-08-03] MEDS ORDERED: lisinopriL 10 MG TAB PO STA (18:22)
--- NOTE | 2020-08-03 20:55 | US ---
EXAMINATION TYPE: US carotid duplex BILAT DATE OF EXAM: 08/03/2020 COMPARISON: CT CLINICAL HISTORY: Stenosis. Stenosis per order. Previous smoker. Hypertension, dizziness. EXAM MEASUREMENTS: RIGHT: Peak Systolic Velocity (PSV) cm/sec ----- Right CCA: 81.2 ----- Right ICA: 65.5 ----- Right ECA: 95.3 ICA/CCA ratio: 0.8 RIGHT: End Diastole cm/sec ----- Right CCA: 14.8 ----- Right ICA: 17.1 ----- Right ECA: 13.7 LEFT: Peak Systolic Velocity (PSV) cm/sec ----- Left CCA: 78.4 ----- Left ICA: 69.9 ----- Left ECA: 110.8 ICA/CCA ratio: 0.9 LEFT: End Diastole cm/sec ----- Left CCA: 20.2 ----- Left ICA: 20.4 ----- Left ECA: 20.4 VERTEBRALS (direction of flow): Right Vertebral: Antegrade Left Vertebral: Antegrade Rhythm: Normal Intimal thickening seen bilaterally. No elevated velocities. No significant stenosis seen. Hypoechoic area with hyperechoic center seen within the right neck measurin.2 x 1.4 x 1.0 cm. Intimal thickening is evident to the right carotid system. This is also evident within the left carot id system. IMPRESSION: 1. Bilateral intimal thickening without significant flow-limiting stenosis. 2. Right neck enlarged lymph node. Criteria for Assigning % of Stenosis / Diameter reduction (Estimation based on the indirect measurements of the internal carotid artery velocities (ICA PSV). 1. Normal (no stenosis)=ICA PSV < 125 cm/s: ratio < 2.0: ICA EDV<40 cm/s. 2. Less than 50% stenosis=ICA PSV < 125 cm/s: ratio < 2.0: ICA EDV<40 cm/s. 3. 50 to 69% stenosis=ICA PSV of 125 to 230 cm/s: ration 2.0 ? 4.0: ICA EDV 40-100 cm/s. 4. Greater than 70% stenosis to near occlusion= ICA PSV > 230 cm/s: ratio > 4.0: ICA EDV > 100 cm/s. 5. Near occlusion= ICA PSV velocities may be low or undetectable: variable ratio and ICA EDV. 6. Total occlusion=unable to detect flow.
[2020-08-03] MEDS ORDERED: ATORVASTATIN 80 MG TAB PO SCH (21:00)
[2020-08-03] MEDS: SODIUM CHLORIDE 0.9% 1,000 ML IV SCH (21:12)
[2020-08-03] MEDS ORDERED: IPRATROPIUM-ALBUTEROL 3 ML NEB INHALATION PRN (21:49)
[2020-08-03] MEDS ORDERED: ALBUTEROL NEBULIZED 2.5 MG/3 ML INHALATION PRN (21:49)
[2020-08-03] MEDS: hydrALAZINE HCL 25 MG TAB PO SCH (22:16)
[2020-08-03] MEDS: ALPRAZolam 0.25 MG TAB PO SCH (22:16)
[2020-08-04] MEDS ORDERED: LEVOTHYROXINE 88 MCG TAB PO SCH (06:30)
[2020-08-04] MEDS: ALPRAZolam 0.25 MG TAB PO SCH (06:58)
[2020-08-04] MEDS ORDERED: PANTOPRAZOLE 40 MG TABLET PO SCH (07:30)
[2020-08-04 07:55] LABS: Cholesterol 157 mg/dL (<200); HDL Cholesterol 54 mg/dL (40-60); LDL Cholesterol,Calculated 82 mg/dL (0-99); Triglycerides 107 mg/dL (<150)
[2020-08-04] MEDS ORDERED: Fluticasone/Salmeterol [Fluticasone-Salmeterol 232-14] 1 PUFF INHALATION SCH (08:00)
[2020-08-04] MEDS ORDERED: lisinopriL 10 MG TAB PO SCH (09:00)
[2020-08-04] MEDS ORDERED: ASPIRIN 325 MG TAB PO SCH (09:00)
[2020-08-04] MEDS ORDERED: LOSARTAN 50 MG TAB PO SCH (09:00)
[2020-08-04] MEDS: hydrALAZINE HCL 25 MG TAB PO SCH ×3 (09:29→17:05)
[2020-08-04] MEDS: SODIUM CHLORIDE 0.9% 1,000 ML IV SCH (09:29)
[2020-08-04] MEDS ORDERED: LORazepam 2 MG/ML INJ IV STA (10:35)
[2020-08-04] MEDS ORDERED: SYMBICORT 160-4.5 MCG INHALER INHALATION SCH (11:00)
[2020-08-04] MEDS: IPRATROPIUM-ALBUTEROL 3 ML NEB INHALATION SCH ×2 (11:41→15:17)
--- NOTE | 2020-08-04 12:53 | ECHOF ---
Referral Reason:Thrombus MEASUREMENTS -------- HEIGHT: 162.6 cm WEIGHT: 90.7 kg BP: 128/81 RVIDd: 3.8 cm (< 3.3) IVSd: 1.5 cm (0.6 - 1.1) LVIDd: 4.3 cm (3.9 - 5.3) LVPWd: 1.8 cm (0.6 - 1.1) IVSs: 1.9 cm LVIDs: 1.8 cm LVPWs: 2.3 cm MV E Pratik: 0.93 m/s MV DecT: 248 ms MV A Pratik: 1.06 m/s MV E/A Ratio: 0.87 AV maxP.24 mmHg AV meanP.41 mmHg RAP: 5.00 mmHg RVSP: 19.02 mmHg FINDINGS -------- This was a technically difficult study with suboptimal views. The left ventricular size is normal. There is moderate concentric left ventricular hypertrophy. O verall left ventricular systolic function is normal with, an EF between 55 - 60 %. The right ventricle is mild to moderately enlarged. The left atrium was not well visualized. The right atrium was not well visualized. Lumason used The aortic valve was not well visualized. There is mild aortic stenosis present. Peak/mean gradie nt across the Aortic Valve is 19.24mmHg / 9.41mmHg. The mitral valve was not well visualized. Mild mitral regurgitation is present. The tricuspid valve was not well visualized. Mild tricuspid regurgitation present. Right ventricu lar systolic pressure is normal at < 35 mmHg. The pulmonic valve was not well visualized. The aortic root size is normal. IVC Not well visulized. There is no pericardial effusion. CONCLUSIONS -------- 1. The left ventricular size is normal. 2. There is moderate concentric left ventricular hypertrophy. 3. Overall left ventricular systolic function is normal with, an EF between 55 - 60 %. 4. The right ventricle is mild to moderately enlarged. 5. There is mild aortic stenosis present. 6. Peak/mean gradient across the Aortic Valve is 19.24mmHg / 9.41mmHg. 7. Mild mitral regurgitation is present. 8. Mild tricuspid regurgitation present. 

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
[2020-08-04] MEDS ORDERED: guaiFENesin 600 MG TABLET.ER PO SCH (15:19)
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
[2020-08-04] MEDS ORDERED: ESCITALOPRAM 10 MG TAB PO SCH (15:30)
--- NOTE | 2020-08-04 16:19 | MR ---
EXAMINATION TYPE: MR brain wo/w con DATE OF EXAM: 08/04/2020 COMPARISON: CT brain 08/03/2020 HISTORY: 65-year-old female CVA,Tumor TECHNIQUE: Multiplanar, multisequence images of the brain and brainstem were acquired before and aft er administration of 9 mL IV Gadavist. Diffusion weighted imaging is performed. FINDINGS: No evidence for acute infarction, hemorrhage, mass effect, midline shift, herniation, effacement of b yamilka cisterns, or extra-axial fluid collection. As seen on CT, there is a 1.2 x 1.1 x 1.1 cm round extra-axial lesion along the anterior left parieta l convexity. Enhancing dural tail is demonstrated. The lesion is heterogeneous on T2 with some centra l dark signal compatible with calcification seen on CT. Postcontrast sequences show avid peripheral e nhancement with some residual central nonenhancement likely in the area of calcification. No associat ed vasogenic edema or mass effect onto the adjacent parietal parenchyma. The peripheral aspect of the lesion shows restricted diffusion suggesting hypercellularity. The ventricles and sulci are age-appropriate. Major intracranial flow voids are intact. T2/FLAIR weighted sequences show no white matter signal abnormality. Midline structures demonstrate normal morphology. The craniocervical junction is normal. Post contrast images demonstrate no other evidence of pathologic enhancement. Dural venous sinuses a re patent. Moderate to severe mucosal thickening ethmoid air cells and maxillary sinuses. Mild throughout the re maining paranasal sinuses. Layering fluid in the bilateral maxillary and left sphenoid sinuses. Globe s are intact. Trace fluid in the inferior mastoid air cells nonspecific. IMPRESSION: 1. T2 heterogeneous and enhancing extra-axial lesion along the anterior left parietal convexity measu res 1.2 cm corresponding to the calcified lesion on CT. A meningioma is favored. Six-month follow-up MRI recommended to reassess. 2. No acute intracranial abnormality or other abnormal enhancing lesions. 3. Correlate for moderate to severe chronic pansinus disease. Superimposed acute sinusitis left sphen oid and bilateral maxillary sinusitis.
[2020-08-04 18:03] VITALS: BP 137/73; PULSE 86; RESP 18; TEMP 98.1
[2020-08-04] MEDS ORDERED: amLODIPine 5 MG TAB PO SCH (19:00)
[2020-08-04] MEDS ORDERED: PRAVASTATIN SODIUM 80 MG TAB PO SCH (21:00)
--- NOTE | 2020-08-06 10:29 | P.DS ---
Providers Date of admission: 08/03/20 18:16 Expected date of discharge: 08/06/20 Attending physician: Caleb Fisher Consults: 08/03/20 18:17 Consult Physician Routine Consulting Provider: Brendan Bailey Consult Reason/Comments: cvaROtumor Do you want consulting provider notified?: Yes Primary care physician: [facility] Course: Final Diagnoses: Hypertensive emergency, symptomatic with dizziness,postural hypotension with dizziness side effect of Tenormin. Suspect rebound hypertension in a patient who had abruptly stopped her Tenormin. 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 Right neck enlarged lymph node Acute paranasal sinusitis, Mucinex initiated Possible dehydration in a patient who consumes diet pop, NutraSweet Gastroesophageal reflux disease Hypertension, essential COPD, stable Hospital course:This is a 65-year-old female with past medical history of ovarian cancer, status post chemotherapy 2014, COPD, gastroesophageal reflux disease, hyperlipidemia, hypertension, hypothyroidism, anxiety presented to the ER with recurrent dizziness, elevated blood pressures 1 week, accompanied by fluctuating headaches, anxiety. Patient reports she abruptly stopped her atenolol last ; she had been to the PCPs office and they had switched her over to Cozaar. On admission blood pressure 216/107, heart rate 89, respiratory rate 16 with maintaining O2 sats in the high 90s on room air. Afebrile. EKG report in normal sinus rhythm. Troponin ordered. Chest CTA reported no acute pulmonary embolism, calcified granuloma, no acute pulmonary process. Brain CT reported no acute intracranial process, calcification within posterior left vertex extra-axial, not a classic meningioma. MRI pending. Acute paranasal sinusitis. Carotid Doppler reported bilateral intimal thickening without significant flow limiting stenosis, right neck enlarged lymph node. Received labetalol, hydralazine, Ativan , statin and aspirin in the ER, and IV fluids. Maintained on hydralazine, lisinopril, Cozaar, Systolic blood pressure currently 128/81. Lipid panel within normal limits. Afebrile, WBC 11.3, neutrophils 8 otherwise hematology unremarkable. Coagulation, chemistry unremarkable. Significant clinical improvement. TOM inhibitor discontinued, maintained on losartan with Norvasc added to med regimen. Brain MRI pending. Patient will be discharged home today in a stable condition with guarded prognosis, pending brain MRI results, final DC recommendations and clearance from neurology, blood pressure controlled-follow up blood pressure to be cleared with Dr. Fisher. The impression and plan of care has been dictated as directed. : I performed a history and examination of this patient, discussed the same with the dictator. I agree with the dictator's note ,documented as a scribe. Any a dditional findings or plans will be noted. Patient Condition at Discharge: Stable Plan - Discharge Summary Discharge Rx Participant: No New Discharge Prescriptions: New hydrALAZINE HCL [Apresoline] 25 mg PO Q8H #63 tab Aspirin EC [Ecotrin Low Dose] 81 mg PO DAILY #30 tablet. Escitalopram [Lexapro] 10 mg PO DAILY tab guaiFENesin [Mucinex] 1,200 mg PO Q12HR tablet.er amLODIPine [Norvasc] 5 mg PO DAILY #30 tab Continue Omeprazole 20 mg PO DAILY Levothyroxine Sodium [Synthroid] 88 mcg PO DAILY ALPRAZolam [Xanax] 0.25 mg PO BID Ipratropium-Albuterol Nebulize [Duoneb 0.5 mg-3 mg/3 ml Soln] 3 ml INHALATION RT-BID PRN PRN Reason: Shortness Of Breath Losartan Potassium [Cozaar] 50 mg PO DAILY Fluticasone/Salmeterol [Fluticasone-Salmeterol 232-14] 1 puff INHALATION RT- BID Pravastatin Sodium 80 mg PO HS Albuterol Sulfate [Proair Hfa] 2 puff INHALATION RT-Q6H PRN PRN Reason: Shortness Of Breath Discharge Medication List Levothyroxine Sodium [Synthroid] 88 mcg PO DAILY 06/30/15 [History] Omeprazole 20 mg PO DAILY 06/30/15 [History] ALPRAZolam [Xanax] 0.25 mg PO BID 07/31/17 [History] Ipratropium-Albuterol Nebulize [Duoneb 0.5 mg-3 mg/3 ml Soln] 3 ml INHALATION RT-BID PRN 08/03/17 [History] Albuterol Sulfate [Proair Hfa] 2 puff INHALATION RT-Q6H PRN 08/03/20 [History] Fluticasone/Salmeterol [Fluticasone-Salmeterol 232-14] 1 puff INHALATION RT-BID 08/03/20 [History] Losartan Potassium [Cozaar] 50 mg PO DAILY 08/03/20 [History] Pravastatin Sodium 80 mg PO HS 08/03/20 [History] Aspirin EC [Ecotrin Low Dose] 81 mg PO DAILY #30 tablet.dr 08/04/20 [Rx] Escitalopram [Lexapro] 10 mg PO DAILY tab 08/04/20 [Rx] amLODIPine [Norvasc] 5 mg PO DAILY #30 tab 08/04/20 [Rx] guaiFENesin [Mucinex] 1,200 mg PO Q12HR tablet.er 08/04/20 [Rx] hydrALAZINE HCL [Apresoline] 25 mg PO Q8H #63 tab 08/04/20 [Rx] Follow up Appointment(s)/Referral(s): Caleb Fisher Jr, DO [Primary Care Provider] - 3 Days (Please call office during normal business hours. Ask for an appointment for Sunday or Sunday as requested by Dr Fisher. ) Jai Jurado MD [Medical Doctor] - 10 Days (Please call during normal business hours to schedule follow up appointment. ) Ambulatory/Diagnostic Orders: Complete Blood Count w/diff [LAB.AMB] Time Frame: 3 Days, Location: None Selected Patient Instructions/Handouts: Meningioma (DC), Hypertension (DC), Anxiety (ED) Discharge Disposition: HOME SELF-CARE
== END 2020-08-04 19:00 | disposition home or self-care (01) ==
LOC: EC 15:28 → INTOOBSV 18:16 → 3SCARD 18:16 → UNDODISIN 08-04 19:00
PROVIDERS: ADMIT Family Medicine; ATTEND Family Medicine
DX: I16.1 Hypertensive emergency (principal); I95.1 Orthostatic hypotension; G93.89 Other specified disorders of brain; R59.0 Localized enlarged lymph nodes; J01.90 Acute sinusitis, unspecified; K21.9 Gastro-esophageal reflux disease without esophagitis; H81.10 Benign paroxysmal vertigo, unspecified ear; J44.9 Chronic obstructive pulmonary disease, unspecified; E78.5 Hyperlipidemia, unspecified; I10 Essential (primary) hypertension; E03.9 Hypothyroidism, unspecified; K58.9 Irritable bowel syndrome, unspecified; G89.29 Other chronic pain; M54.9 Dorsalgia, unspecified; F41.9 Anxiety disorder, unspecified; J84.10 Pulmonary fibrosis, unspecified; E66.9 Obesity, unspecified; T44.7X6A Underdosing of beta-adrenoreceptor antagonists, initial encounter; Z91.128 Patient's intentional underdosing of medication regimen for other reason; Z85.43 Personal history of malignant neoplasm of ovary; Z79.890 Hormone replacement therapy; Z79.899 Other long term (current) drug therapy; Z79.51 Long term (current) use of inhaled steroids; Z88.0 Allergy status to penicillin; Z92.21 Personal history of antineoplastic chemotherapy; Z87.01 Personal history of pneumonia (recurrent); Z87.09 Personal history of other diseases of the respiratory system; Z90.49 Acquired absence of other specified parts of digestive tract; Z90.710 Acquired absence of both cervix and uterus; Z98.51 Tubal ligation status; Z98.890 Other specified postprocedural states; Z86.018 Personal history of other benign neoplasm; Z87.891 Personal history of nicotine dependence; Z68.34 Body mass index [BMI] 34.0-34.9, adult; Z80.8 Family history of malignant neoplasm of other organs or systems; Z82.49 Family history of ischemic heart disease and other diseases of the circulatory system
CPT/HCPCS: 96375 ×2; 96374; 99291; 36415; 94640; 93005; 93306; 83880; 80061; 80053; 82550; 83735; 84100; 84484 ×2; 85025; 85610; 85730; 93880; 70450; 71275; 70553; G0378 ×2; J2060; J0360; A9585; Q9950; Q9967; 96361

== ENCOUNTER → 2020-09-27 | Outpatient (CLI) | payer BC ==
--- NOTE | 2020-09-29 09:45 | MM ---
Reason for exam: screening (asymptomatic). Last mammogram was performed 2 years ago. History: Patient is postmenopausal and has history of ovarian cancer at age 60. Physical Findings: A clinical breast exam by your physician is recommended on an annual basis and results should be correlated with mammographic findings. MG Screening Mammo w CAD Bilateral CC and MLO view(s) were taken. Prior study comparison: September 16, 2018, bilateral MG screening mammo w CAD. September 13, 2017, bilateral MG screening mammo w CAD. The breast tissue is heterogeneously dense. This may lower the sensitivity of mammography. Dense tissues anteriorly on a background of scattered densities. No significant changes when compared with prior studies. ASSESSMENT: Negative, BI-RAD 1 RECOMMENDATION: Routine screening mammogram of both breasts in 1 year.
== END | disposition home or self-care (01) ==
LOC: RADMAMWWP 13:29
PROVIDERS: ATTEND Internal Medicine Hematology & Oncology
DX: Z12.31 Encounter for screening mammogram for malignant neoplasm of breast (principal)
CPT/HCPCS: 77067

== ENCOUNTER → 2021-03-15 | Outpatient (CLI) | payer BC ==
--- NOTE | 2021-03-15 08:38 | CT ---
EXAMINATION TYPE: CT ChestAbdPelvis w con DATE OF EXAM: 03/15/2021 COMPARISON: Prior CT January 19, 2020 and older CTs HISTORY: Ovarian cancer completed chemotherapy 2016 CT DLP: 1695.70 mGycm. Automated Exposure Control for Dose Reduction was Utilized. CONTRAST: CT scan of the thorax, abdomen and pelvis is performed with oral and with IV Contrast, patient inject ed with 100 ml mL of Isovue 300. FINDINGS: LUNGS: There is [id number] bilateral lower lung linear scarring and/or atelectasis. Stable 5 mm calcified subpleural nodule or granuloma left lower lobe axial image 31 conference study. No suspici ous noncalcified parenchymal nodule or mass is present There is no pleural effusion or pneumothorax seen. The tracheobronchial tree is patent. MEDIASTINUM: There are no new greater than 1 cm noncalcified hilar or mediastinal lymph nodes. Promin ent calcified left hilar lymph nodes are redemonstrated. No significant pericardial effusion is seen . Stable somewhat small size thyroid with inferior 3 mm calcification axial image 7. Stable cardiomeg arsalan. LIVER/GB: Cholecystectomy clips are redemonstrated. Stable prominent right hepatic lobe or enlargemen t. PANCREAS: No significant abnormality is seen. SPLEEN: Calcifications throughout the spleen are redemonstrated, finding consistent with product of o ld granulomatous disease. ADRENALS: No significant abnormality is seen. KIDNEYS: Some cortical thinning in both kidneys is redemonstrated. There is symmetric cortical medull lizbet uptake and excretion without evidence of hydronephrosis bilaterally. Bladder remains poorly diste nded and thus suboptimally evaluated. BOWEL: Stable small size hiatal hernia. Low-lying cecum into right pelvis is redemonstrated. Oral con trast reaches level of low-lying cecum. No suspicious small or large bowel dilatation. A few divertic hue in the left and sigmoid colon are present. GENITAL ORGANS: Uterus is surgically absent. A few scattered bilateral pelvic phleboliths. LYMPH NODES: No new greater than 1cm abdominal or pelvic lymph nodes are appreciated. Stable prominen t but subcentimeter bilateral groin lymph nodes. OSSEOUS STRUCTURES: Prominent Schmorl node or height loss superior posterior T12 endplate is redemons trated sagittal image 73 along slight left aspect. OTHER: Scar tissue in the anterior abdominal wall midline near umbilicus is redemonstrated. IMPRESSION: No suspicious new mass or adenopathy is seen to suggest local or metastatic neoplastic re currence.
== END | disposition home or self-care (01) ==
LOC: RADCTMAIN 06:22
PROVIDERS: ATTEND Internal Medicine Hematology & Oncology
DX: C56.1 Malignant neoplasm of right ovary (principal); Z88.0 Allergy status to penicillin
CPT/HCPCS: 82565; 84520; 71260; 74177; 36415; Q9967

== ENCOUNTER → 2021-03-22 | Outpatient (CLI) | payer BC ==
[2021-03-22 16:57] LABS: HCT 38.2 % (37.2-46.3); MCH 33.6 pg (27.0-32.0); MCV 98.7 fL (80.0-97.0); Mean Platelet Volume 9.5 fL (9.5-12.2); Platelet Count 265 X 10*3/uL (140-440); RBC 3.87 X 10*6/uL (4.10-5.20); RDW 11.8 % (11.5-14.5); WBC 6.11 X 10*3/uL (4.50-10.00)
== END | disposition home or self-care (01) ==
LOC: LABWHC1 10:01
PROVIDERS: ATTEND Orthopaedic Surgery
DX: Z01.812 Encounter for preprocedural laboratory examination (principal); I10 Essential (primary) hypertension; M25.561 Pain in right knee; E78.5 Hyperlipidemia, unspecified; M25.562 Pain in left knee; M17.0 Bilateral primary osteoarthritis of knee
CPT/HCPCS: 36415; 85027; 87070

== ENCOUNTER 2021-12-06 19:40 | Inpatient (IN) | payer BC, MEDICARE ==
[2021-12-06] MEDS ORDERED: HYDROmorphone 0.5 MG/0.5 ML SYRINGE IVP STA ×2 (19:44→20:14)
[2021-12-06] MEDS ORDERED: SODIUM CHLORIDE 0.9% 1,000 ML IV STA (19:51)
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
[2021-12-06 20:22] LABS: Basophils # (A) 0.1 k/uL (0-0.2); Basophils % (A) 1 %; Eosinophils # (A) 0.1 k/uL (0-0.7); Eosinophils % (A) 2 %; HCT 37.9 % (34.0-46.0); HGB 13.1 gm/dL (11.4-16.0); Lymphocytes # (A) 1.8 k/uL (1.0-4.8); Lymphocytes % (A) 20 %; MCH 34.1 pg (25.0-35.0); MCHC 34.4 g/dL (31.0-37.0); MCV 99.2 fL (80.0-100.0); Mean Platelet Volume 6.8; Monocytes # (A) 0.3 k/uL (0-1.0); Monocytes % (A) 3 %; Neutrophils # (A) 6.6 k/uL (1.3-7.7); Neutrophils % (A) 74 %; Platelet Count 416 k/uL (150-450); RBC 3.82 m/uL (3.80-5.40); RDW 12.8 % (11.5-15.5)
[2021-12-06 20:31] LABS: INR 0.9 (<1.2); Partial Thromboplastin Time 22.4 sec (22.0-30.0); Prothrombin Time 9.5 sec (9.0-12.0)
[2021-12-06 20:45] LABS: Calcium 8.6 mg/dL (8.4-10.2); Potassium 3.2 mmol/L (3.5-5.1)
--- NOTE | 2021-12-06 21:15 | XR ---
EXAMINATION TYPE: XR chest 1V portable DATE OF EXAM: 12/06/2021 COMPARISON: 07/09/2015 HISTORY: 66 years Female. STUDY INDICATION GIVEN: fall . TECHNIQUE: AP chest radiograph IMPRESSION: Lung nodules are seen on the left measuring up to 6 mm enlarged in the interval. Within the history o f prior ovarian cancer is difficult to exclude lung metastasis. No focal airspace opacity, pneumothorax or large effusion seen. The heart is moderately enlarged, increased in size compared to the prior. No acute osseous abnormalities seen.
--- NOTE | 2021-12-06 21:26 | XR ---
EXAMINATION TYPE: XR Hip LT and AP Pelvis, XR knee limited LT, XR femur LT DATE OF EXAM: 12/06/2021 COMPARISON: NONE HISTORY: 66 years Female. STUDY INDICATION GIVEN: fall . TECHNIQUE: AP pelvis. AP and lateral left hip joint. IMPRESSION: Pelvis: No acute fracture or dislocation seen. Symmetric sacroiliac joints and hip joints. Mild osteo arthrosis of bilateral hip joints. Stable appearance of the proximal left femur demonstrating evidenc e of bony growth projecting superiorly. Phleboliths and surgical clips are seen in the pelvis. Femur: There is an acute mildly comminuted oblique fracture of the distal femoral shaft. The distal p art of the femur is dislocated medially and anteriorly and has approximate 8 cm proximal overlap. The fracture line extends distally towards the superior aspect of the anterior part of the femoral arthr oplasty component, the fracture line is not visualized extending to the inferior endplate of the femu r. There is cortical irregularity in the mid aspect of the femoral shaft which may be customer response representative of remote/healing fracture. Knee: Knee arthroplasty hardware appears intact. Few calcific densities projecting over the lateral a spect of the knee joint space. No significant periprosthetic lucencies seen. Soft tissue swelling see n in the prepatellar area.
[2021-12-06] MEDS ORDERED: NALOXONE 0.4 MG/ML 1 ML VIAL IV PRN (21:27)
[2021-12-06] MEDS ORDERED: ONDANSETRON 4 MG/2 ML VIAL IVP PRN (21:52)
[2021-12-06] MEDS ORDERED: ACETAMINOPHEN TAB 325 MG TAB PO PRN (21:52)
[2021-12-06] MEDS: HYDROmorphone 0.5 MG/0.5 ML SYRINGE IVP PRN (22:59)
[2021-12-07] MEDS: SODIUM CHLORIDE 0.9% 1,000 ML IV SCH ×3 (00:45→14:24)
[2021-12-07] MEDS: HYDROmorphone 0.5 MG/0.5 ML SYRINGE IVP PRN ×6 (02:22→17:01)
[2021-12-07] MEDS ORDERED: HYDROmorphone 0.5 MG/0.5 ML SYRINGE IVP STA (08:31)
[2021-12-07] MEDS ORDERED: Potassium Replacement Protocol 1 EACH MISC MISCELLANE PRN ×2 (09:44→11:02)
[2021-12-07] MEDS ORDERED: ALBUTEROL HFA INHALER INHALATION PRN (09:57)
[2021-12-07 10:41] LABS: African American GFR (CKD) >90 (>60 ml/min/1.73 sqM); Anion Gap 10 mmol/L; Blood Urea Nitrogen 12 mg/dL (7-17); Calcium 8.6 mg/dL (8.4-10.2); Carbon Dioxide 24 mmol/L (22-30); Chloride 95 mmol/L (98-107); Glucose 108 mg/dL (74-99); Magnesium 1.4 mg/dL (1.6-2.3); Non-African American GFR(CKD) >90 (>60 ml/min/1.73 sqM); Potassium 3.3 mmol/L (3.5-5.1); Sodium 129 mmol/L (137-145)
[2021-12-07] MEDS: CHOLECALCIFEROL 25 MCG (1000 IU) TABLET PO SCH (10:54)
[2021-12-07] MEDS: LOSARTAN 50 MG TAB PO SCH (10:54)
[2021-12-07] MEDS: ALPRAZolam 0.25 MG TAB PO SCH ×2 (10:54→21:03)
[2021-12-07] MEDS: ASCORBIC ACID 500 MG TAB PO SCH ×2 (10:54→21:03)
[2021-12-07] MEDS: ZINC SULFATE 220 MG CAP PO SCH (10:55)
[2021-12-07] MEDS: POTASSIUM CHLORIDE ER 10 MEQ TAB.ER.PRT PO SCH (10:55)
[2021-12-07] MEDS: MULTIVITAMINS, THERA 1 EACH TAB PO SCH (10:55)
[2021-12-07] MEDS ORDERED: Magnesium Replacement Protocol 1 EACH MISC MISCELLANE PRN ×2 (10:55→11:05)
[2021-12-07] MEDS: PANTOPRAZOLE 40 MG/10 ML VIAL IVP SCH (10:55)
[2021-12-07] MEDS: POTASSIUM CHLORIDE ER 20 MEQ TAB.ER PO SCH ×2 (11:14→11:15)
[2021-12-07] MEDS: MAGNESIUM SULFATE-D5W PMX 1 GM in DEXTROSE/WATER 1 100ML.BAG IVPB SCH ×3 (11:15→14:21)
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
[2021-12-07] MEDS ORDERED: ONDANSETRON 4 MG/2 ML VIAL IVP PRN (11:57)
--- NOTE | 2021-12-07 12:00 | ECHOF ---
Referral Reason:enlarged heart incr. in size from prior, OR 1600 MEASUREMENTS -------- HEIGHT: 162.6 cm WEIGHT: 86.2 kg BP: 148/78 RVIDd: 4.3 cm (< 3.3) IVSd: 1.4 cm (0.6 - 1.1) LVIDd: 4.7 cm (3.9 - 5.3) LVPWd: 1.5 cm (0.6 - 1.1) IVSs: 1.7 cm LVIDs: 2.6 cm LVPWs: 1.5 cm FINDINGS -------- Sinus rhythm. The left ventricular size is normal. There is moderate concentric left ventricular hypertrophy. O verall left ventricular systolic function is normal with, an EF between 55 - 60 %. The right ventricle is moderate to severely enlarged. 3.0mg of Lumason was utilized for enhancement of images There is no evidence of aortic regurgitation. There is no evidence of aortic stenosis. There is trace mitral regurgitation. Trace tricuspid regurgitation present. There is no pulmonic regurgitation present. Echo free space represents a pericardial fat pad. There is no pericardial effusion. CONCLUSIONS -------- 1. The left ventricular size is normal. 2. There is moderate concentric left ventricular hypertrophy. 3. Overall left ventricular systolic function is normal with, an EF between 55 - 60 %. 4. The right ventricle is moderate to severely enlarged. 5. There is trace mitral regurgitation. 6. Trace tricuspid regurgitation present. [employer]: Dorcas Justice [facility]
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
[2021-12-07] MEDS: SYMBICORT 160-4.5 MCG INHALER INHALATION SCH ×2 (13:19→20:25)
[2021-12-07] MEDS: ALBUTEROL HFA INHALER INHALATION SCH ×3 (16:46→20:25)
[2021-12-07] MEDS ORDERED: PROPOFOL 10 MG/ML 20 ML VIAL IV ONE (18:08)
[2021-12-07] MEDS ORDERED: IV FLUID CONTINUATION 1,000 ML IV ONE (18:08)
[2021-12-07] MEDS ORDERED: fentaNYL (PF) 50 MCG/ML 2 ML AMP ONE (18:08)
[2021-12-07] MEDS ORDERED: KETAMINE 10 MG/ML 20 ML VIAL ONE (18:08)
[2021-12-07] MEDS ORDERED: MIDAZOLAM 2 MG/2 ML VIAL ONE (18:08)
[2021-12-07] MEDS ORDERED: LACTATED RINGERS 1,000 ML IV ONE ×2 (18:31→19:00)
[2021-12-07] MEDS ORDERED: CLINDAMYCIN 600 MG in SODIUM CHLORIDE 0.9% 1,000 ML IRRIGATION ONE (18:41)
--- NOTE | 2021-12-07 19:36 | P.OP ---
Date of Procedure: 12/07/21 Preoperative Diagnosis: Kimi-prosthetic distal femur fracture left total knee Postoperative Diagnosis: Kimi-prosthetic distal femur fracture left total knee Procedure(s) Performed: Close reduction and retrograde intramedullary nailing periprosthetic fracture left distal femur Implants: [employer] TriGen retrograde femoral nail, 11.5 mm x 36 cm [employer] Tri[employer] locking screws 3 Anesthesia: spinal Surgeon: Dami Manrique Polarity Tester #1: Jaja Galvin Estimated Blood Loss (ml): 100 Pathology: none sent Condition: stable Disposition: PACU Indications for Procedure: This is a 66-year-old female sustained a ground-level fall while slipping on the ice last night. She's had a prior left total knee arthroplasty and sustained a periprosthetic fracture just proximal to the left total knee in the area of the distal femur. After discussing the surgical and nonsurgical treatment options with her at length, I recommended a closed reduction and retrograde intramedullary nailing left femur and informed consent was obtained. Operative Findings: The operative findings are consistent with a comminuted periprosthetic fracture of the left distal femur just a small to the left total knee arthroplasty. Description of Procedure: The patient was seen in the preoperative area, consent was reviewed, and the operative site was marked with a skin marker. Patient was then brought to the operating room and 2 g of Ancef were given intravenously. A spinal anesthetic was administered by the anesthesia department. The left lower extremity was prepped and draped in sterile fashion. A universal timeout was then performed confirming the patient's name, surgical site, ALLERGIES, and consent. The procedure began by placing a triangle under the distal femur and applied traction through the triangle. Fluoroscopic x-rays showed reduction of the fracture. The starting point of the nail was located through a small incision through the middle of the patellar tendon into the intracondylar notch of the femoral component. This was confirmed both AP and lateral x-rays. The guidewire was then placed and over this guidewire the opening reamer was placed. Next a ball-tipped guidewire was then passed through the insertion point past the fracture into the proximal femur. Reduction of the fracture was held while the guidewire was placed. Next, sequential reaming was then performed up to 11 mm with excellent cortical chatter. This was done under fluoroscopic guidance the entire time. The josé manuel was then measured and the appropriate length retrograde femoral nail was inserted over the guidewire while the fracture was held reduced. After the josé manuel was placed appropriate depth, the guidewire was removed. Using the drill guide, 2 distal locking screws then placed. Then, using fluoroscopic guidance, a freehand locking screw was placed in the most proximal screw. After all the screws been placed, fluoroscopic x-rays confirmed reduction of the fracture and placement of the josé manuel and screws. The wounds were then irrigated with pulsatile lavage closed with 0 Vicryl for the tendon, 3-0 Vicryl for the subcu tissue, and les for the skin. A sterile dressing was applied and patient was then transferred back to her room in stable condition. The computer lab assistant Jaja Galvin NP was required due the complexity of the surgery and need for skilled surgical oncologist.
[2021-12-07] MEDS ORDERED: bisacodyL 10 MG SUPP RECTAL PRN (19:53)
[2021-12-07] MEDS ORDERED: MAGNESIUM HYDROXIDE 2,400 MG/10 ML CUP PO PRN (19:53)
[2021-12-07] MEDS ORDERED: HYDROcodone/APAP 5-325MG 1 EACH TAB PO PRN ×2 (19:53)
[2021-12-07] MEDS ORDERED: TEMAZEPAM 15 MG CAP PO PRN (19:53)
--- NOTE | 2021-12-07 20:36 | XR ---
Result: History: Postoperative. Comparison: Same-day fluoroscopic radiographs. Technique: AP view of the left femur. Findings: There is demonstration of retrograde intramedullary josé manuel fixation of left distal femur fracture in guicho r-anatomic alignment. No evidence of immediate hardware complication. Remote healed left proximal fem ur fractures seen. Skin les about the proximal and distal thigh seen. Impression: Left distal femur fracture status post ORIF.
--- NOTE | 2021-12-07 20:40 | XR ---
INDICATION PROVIDED: Intramedullary josé manuel fixation of left distal femoral fracture. Intraoperative. COMPARISON: Preoperative radiographs from 12/06/2021. TECHNIQUE: 5 stored intraoperative fluoroscopic images of the left femur in the AP and lateral projec tions for surgical hardware localization were created. FINDINGS: Intraoperative fluoroscopic images obtained during left femur fracture fixation. Total fluoroscopic time is 1.53 minutes. IMPRESSION: Intraoperative left femoral fracture fixation. See operative report for surgical details.
[2021-12-07] MEDS: SENNOSIDES-DOCUSATE SODIUM 1 EACH TAB PO SCH (21:03)
[2021-12-07] MEDS: PRAVASTATIN SODIUM 80 MG TAB PO SCH (21:03)
[2021-12-07] MEDS: HYDROmorphone 1 MG/ML 1 ML SYRINGE IVP PRN (23:44)
[2021-12-08] MEDS: HYDROmorphone 1 MG/ML 1 ML SYRINGE IVP PRN ×4 (02:57→19:59)
[2021-12-08] MEDS: SODIUM CHLORIDE 0.9% 1,000 ML IV SCH ×3 (05:40→20:02)
[2021-12-08] MEDS: LEVOTHYROXINE 88 MCG TAB PO SCH (05:43)
--- NOTE | 2021-12-08 06:49 | FL ---
EXAMINATION TYPE: FL guidance operating room DATE OF EXAM: 12/07/2021 CLINICAL HISTORY: Left femur fracture. TECHNIQUE: Fluoroscopy. COMPARISON: Prior left femur x-ray from yesterday FINDINGS: Fluoroscopic guidance was provided during open reduction and internal fixation procedure p erformed by Dr. Manrique. A total of 1.53 minutes of fluoroscopic time was utilized during the proce dure and 6 spot intraoperative images are acquired. IMPRESSION: As Above.
[2021-12-08] MEDS: PANTOPRAZOLE 40 MG/10 ML VIAL IVP SCH (08:21)
[2021-12-08] MEDS: MULTIVITAMINS, THERA 1 EACH TAB PO SCH (08:24)
[2021-12-08] MEDS: ASCORBIC ACID 500 MG TAB PO SCH ×2 (08:24→21:29)
[2021-12-08] MEDS: POTASSIUM CHLORIDE ER 10 MEQ TAB.ER.PRT PO SCH (08:24)
[2021-12-08] MEDS: ZINC SULFATE 220 MG CAP PO SCH (08:24)
[2021-12-08] MEDS: CHOLECALCIFEROL 25 MCG (1000 IU) TABLET PO SCH (08:24)
[2021-12-08] MEDS: ALPRAZolam 0.25 MG TAB PO SCH ×2 (08:25→21:28)
[2021-12-08] MEDS: RIVAROXABAN 10 MG TAB PO SCH (08:25)
[2021-12-08] MEDS: LOSARTAN 50 MG TAB PO SCH (08:25)
[2021-12-08] MEDS: ALBUTEROL HFA INHALER INHALATION SCH ×4 (09:14→20:28)
[2021-12-08] MEDS: SYMBICORT 160-4.5 MCG INHALER INHALATION SCH ×2 (09:14→20:28)
[2021-12-08] MEDS ORDERED: HYDROcodone/APAP 7.5-325MG 1 EACH TAB PO PRN (10:31)
--- NOTE | 2021-12-08 10:31 | P.PN ---
Subjective Progress Note Date: 12/08/21 This is a 66-year-old female who is status post closed reduction and retrograde intramedullary nailing periprosthetic fracture left distal femur. This is postoperative day #1 and patient is seen and evaluated at bedside today. Patient states that the left leg is very sore today and her incision has been draining. Objective - Vital Signs Vital signs: Vital Signs Temp 98.2 F 12/08/21 04:53 Pulse 86 12/08/21 04:53 Resp 16 12/08/21 04:53 BP 122/69 12/08/21 04:53 Pulse Ox 92 L 12/08/21 09:15 Intake & Output 12/07/21 12/08/21 12/08/21 18:59 06:59 18:59 Intake Total 1251 500 Output Total 700 Balance 1251 -200 Intake: IV 1251 500 Output: Urine 600 Estimated Blood Loss 100 Other: Voiding Method Indwelling Catheter Indwelling Catheter # Voids 900 - Exam Vital signs are stable. Patient is in no acute distress and is alert and oriented 3. Calf is soft and nontender to palpation. Dressing intact with mild-moderate amount of bloody drainage present. Patient has full foot and ankle motion without pain or difficulty. Sensation intact. Neurovascular status and circulatory status are intact. - Labs CBC & Chem 7: 12/06/21 20:05 12/07/21 12:45 Labs: Abnormal Lab Results - Last 24 Hours (Table) 12/07/21 Range/Units 09:39 Sodium 129 L (137-145) mmol/L Potassium 3.3 L (3.5-5.1) mmol/L Chloride 95 L (98-107) mmol/L Glucose 108 H (74-99) mg/dL Magnesium 1.4 L (1.6-2.3) mg/dL Assessment and Plan Assessment: Status post closed reduction and retrograde intramedullary nailing periprosthetic fracture left distal femur. (1) Femur fracture Current Visit: Yes Status: Acute Code(s): S72.90XA - UNSP FRACTURE OF UNSP FEMUR, INIT ENCNTR FOR CLOSED FRACTURE SNOMED Code(s): 90194946 Plan: 1. Strictly nonweightbearing to the left lower extremity. 2. Xarelto for anticoagulation. 3. Continue routine postoperative care and pain control. 4. Appreciate input from internal medicine. 5. Anticipate discharge to rehab in the next 24-48 hours.
[2021-12-08] MEDS: HYDROcodone/APAP 7.5-325MG 1 EACH TAB PO PRN ×2 (10:46→21:32)
[2021-12-08 11:02] LABS: Basophils # (A) 0.05 X 10*3/uL (0.00-0.10); Basophils % (A) 0.6 %; Eosinophils # (A) 0.23 X 10*3/uL (0.04-0.35); Eosinophils % (A) 2.9 %; HCT 28.4 % (37.2-46.3); HGB 9.4 g/dL (12.0-15.0); Lymphocytes % (A) 13.7 %; MCH 33.8 pg (27.0-32.0); MCHC 33.1 g/dL (32.0-37.0); MCV 102.2 fL (80.0-97.0); Mean Platelet Volume 9.1 fL (9.5-12.2); Monocytes # (A) 0.58 X 10*3/uL (0.20-1.00); Monocytes % (A) 7.2 %; Neutrophils # (A) 6.04 X 10*3/uL (1.80-7.70); Neutrophils % (A) 75.2 %; Platelet Count 278 X 10*3/uL (140-440); RBC 2.78 X 10*6/uL (4.10-5.20); RDW 12.5 % (11.5-14.5); WBC 8.03 X 10*3/uL (4.50-10.00)
[2021-12-08 11:18] LABS: African American GFR (CKD) 106.2 (60.0-200.0); Anion Gap 10.8 mmol/L (10.00-18.00); BUN/Creat Ratio 11.24 Ratio (12.00-20.00); Blood Urea Nitrogen 7.7 mg/dL (9.0-27.0); Calcium 8.4 mg/dL (8.7-10.3); Magnesium 2.1 mg/dL (1.5-2.4); Non-African American GFR(CKD) 91.7 (60.0-200.0); Potassium 3.9 mmol/L (3.5-5.5)
--- NOTE | 2021-12-08 16:02 | P.PN ---
Subjective Progress Note Date: 12/08/21 This is a 66-year-old female with past medical history of ovarian cancer, status post chemotherapy 2015, COPD, gastroesophageal reflux disease, hyperlipidemia, hypertension, hypothyroidism, anxiety presented to the ER status post fall, slipped on ice, with significant lower extremity pain. Reports she stepped outside, wearing her slippers at dinnertime to tell Anette was ready and slipped on the ice, landing on her left side. Reports significant leg pain.Denies head trauma. Denies lightheadedness dizziness or focal deficits. Denies chest pain, palpitations or shortness of breath. Denies cough. Denies nausea vomiting or diarrhea. Tested positive for coronavirus PCR. CBC unremarkable. Coag panel negative. Chemistry unremarkable with the exception of sodium 127, potassium 3.2. Repeat labs ordered. Chest x-ray reporting lung nodules on the left measuring up to 6 mm, possible metastasis, no focal airspace opacity pneumothorax or large effusion. The heart is moderately enlarged, increased in size compared to prior. Femur fracture reporting left acute mildly comminuted oblique fracture of the distal femoral shaft, distal part of the more distal kidney medially and anteriorly with an approximate 8 cm proximal overlap, fracture line extends distally towards the superior aspect of the anterior part of the febrile arthroplasty component, the fracture line not visualized exte nding to the inferior endplate of the femur, cortical irregularity in the mid aspect of the femoral shaft may represent remote/healing fracture. Evaluated by orthopedic surgery and scheduled for surgery this afternoon. Afebrile, maintaining O2 sats in the 90s on room air. 12/08/2021 Underwent close reduction and retrograde intramedullary nailing periprosthetic fracture left distal femur, tolerated procedure well. Positive pain.dressing reflects sanguinous drainage. Denies chest pain, palpitations or shortness of breath. Denies cough or congestion. Afebrile, normal WBC. Hemoglobin 9.4, platelets 278. Maintained on IV fluid hydration, sodium 134. Received potassium and magnesium supplements yesterday, both today within normal limits. Diet intake fair, 25%. Creatinine 0.7. CA-125 antigen 3.0. Denies chest pain, palpitations or shortness of breath. Maintaining O2 sats in the 90s on room air. Incentive spirometer up to 1500. Objective - Vital Signs Vital signs: Vital Signs Temp 97.9 F 12/08/21 14:00 Pulse 88 12/08/21 14:00 Resp 16 12/08/21 14:00 BP 118/73 12/08/21 14:00 Pulse Ox 92 L 12/08/21 14:00 Intake & Output 12/07/21 12/08/21 12/08/21 18:59 06:59 18:59 Intake Total 1251 500 Output Total 700 Balance 1251 -200 Intake: IV 1251 500 Output: Urine 600 Estimated Blood Loss 100 Other: Voiding Method Indwelling Catheter Indwelling Catheter Indwelling Catheter # Voids 900 - Exam PHYSICAL EXAM: VITAL SIGNS: As above GENERAL: Alert and oriented 3, Sitting up in bed, no acute distress HEENT: Conjunctivae normal. eyes normal. Oral mucosa moist NECK: supple,No JVD. CARDIOVASCULAR: S1, S2 regular. No murmur. RESPIRATION: Nonlabored .Breath sounds diminished in the bases. No rhonchi or crackles. ABDOMEN: Soft, nontender . No guarding. no masses palpable. Positive bowel sounds heard. LEGS: Left extremity surgical dressing with mild to moderate shadowing, minimal edema. Positive DP pulse NERVOUS SYSTEM: Cranial N 2-12 grossly normal. No focal deficits. Strength and sensation grossly intact. Skin: warm and dry, no rash - Labs CBC & Chem 7: 12/08/21 07:10 12/08/21 07:10 Labs: Abnormal Lab Results - Last 24 Hours (Table) 12/08/21 12/08/21 Range/Units 07:10 07:10 RBC 2.78 L (4.10-5.20) X 10*6/uL Hgb 9.4 L (12.0-15.0) g/dL Hct 28.4 L (37.2-46.3) % MCV 102.2 H (80.0-97.0) fL MCH 33.8 H (27.0-32.0) pg MPV 9.1 L (9.5-12.2) fL Sodium 134 L (135-145) mmol/L BUN 7.7 L (9.0-27.0) mg/dL BUN/Creatinine Ratio 11.24 L (12.00-20.00) Ratio Glucose 112 H (70-110) mg/dL Calcium 8.4 L (8.7-10.3) mg/dL Assessment and Plan Assessment: Acute left distal Femur fracture,s/p fall, status post close reduction and retrograde intramedullary nailing periprosthetic fracture left distal femur. Acute COvid infection Acute blood loss anemia, postop, expected Hyponatremia, improving Suspect Dehydration in a patient who consumes significant amounts of diet vernors Hypokalemia, resolved Hypomagnesemia, resolved Abnormal electrolytes possibly related to Covid. Lung nodules measuring up to 6 mm, possible lung metastasis, in a patient with history of prior ovarian CA, CA-125 3.0 History of right neck enlarged lymph node reported per carotid Doppler 08/03/2020 History of ovarian cancer diagnosed February 2015, last chemo 10/21/2015 History of Hypertensive emergency, symptomatic with dizziness,postural hypotension with dizziness side effect of Tenormin. Suspect rebound hypertension in a patient who had abruptly stopped her Tenormin. History of Calcification within posterior left vertex extra-axial, not a classic meningioma, rule out tumor, metastasis, in a patient with history of ovarian CV A , MRI 08/04/2020 reported T2 heterogenesis asked her axilla lesion along the anterior left parietal convexity measuring 1.2 cm corresponding to calcified lesion on CT, favoring meningioma with six-month follow-up MRI recommended. Gastroesophageal reflux disease Hypertension, essential Hyperlipidemia COPD, stable Prior nicotine dependence Chronic back pain Hypothyroidism Plan: Continue on current medication regime ,monitoring and symptomatic treatment. Repeat CBC ordered-PCP to be notified of results.Pain management.aggressive pulmonary toileting with incentive spirometer reinforced . Close monitoring of coags, electrolytes with repeat labs ordered for a.m. in addition to repeat CBC this afternoon. The impression and plan of care has been dictated as directed. : I performed a history and examination of this patient, discussed the same with the dictator. I agree with the dictator's note ,documented as a scribe. Any additional findings or plans will be noted.
[2021-12-08 17:18] LABS: HCT 28.9 % (34.0-46.0); MCH 34.4 pg (25.0-35.0); MCHC 33.2 g/dL (31.0-37.0); MCV 103.5 fL (80.0-100.0); Macrocytosis Slight; Mean Platelet Volume 6.7; Platelet Count 288 k/uL (150-450); RBC 2.79 m/uL (3.80-5.40); WBC 7.5 k/uL (3.8-10.6)
[2021-12-08 17:20] LABS: HGB 9.6 gm/dL (11.4-16.0)
[2021-12-08] MEDS: PRAVASTATIN SODIUM 80 MG TAB PO SCH (21:29)
[2021-12-08] MEDS: SENNOSIDES-DOCUSATE SODIUM 1 EACH TAB PO SCH (21:31)
[2021-12-09] MEDS: HYDROmorphone 1 MG/ML 1 ML SYRINGE IVP PRN ×3 (02:37→15:28)
[2021-12-09] MEDS: SODIUM CHLORIDE 0.9% 1,000 ML IV SCH ×3 (02:41→20:00)
[2021-12-09] MEDS: HYDROcodone/APAP 7.5-325MG 1 EACH TAB PO PRN ×3 (06:00→19:30)
[2021-12-09] MEDS: LEVOTHYROXINE 88 MCG TAB PO SCH (06:01)
[2021-12-09] MEDS: ASCORBIC ACID 500 MG TAB PO SCH ×2 (08:11→20:46)
[2021-12-09] MEDS: CHOLECALCIFEROL 25 MCG (1000 IU) TABLET PO SCH (08:11)
[2021-12-09] MEDS: ALPRAZolam 0.25 MG TAB PO SCH ×2 (08:11→20:46)
[2021-12-09] MEDS: POTASSIUM CHLORIDE ER 10 MEQ TAB.ER.PRT PO SCH (08:11)
[2021-12-09] MEDS: RIVAROXABAN 10 MG TAB PO SCH (08:11)
[2021-12-09] MEDS: LOSARTAN 50 MG TAB PO SCH (08:11)
[2021-12-09] MEDS: MULTIVITAMINS, THERA 1 EACH TAB PO SCH (08:11)
[2021-12-09] MEDS: ZINC SULFATE 220 MG CAP PO SCH (08:11)
[2021-12-09] MEDS: PANTOPRAZOLE 40 MG TABLET PO SCH (08:11)
[2021-12-09] MEDS: SYMBICORT 160-4.5 MCG INHALER INHALATION SCH ×2 (08:17→19:33)
[2021-12-09] MEDS: ALBUTEROL HFA INHALER INHALATION SCH ×4 (08:17→19:32)
[2021-12-09 10:37] LABS: Basophils # (A) 0.06 X 10*3/uL (0.00-0.10); Basophils % (A) 0.8 %; Eosinophils # (A) 0.48 X 10*3/uL (0.04-0.35); Eosinophils % (A) 6.8 %; HCT 25.2 % (37.2-46.3); HGB 8.1 g/dL (12.0-15.0); Lymphocytes # (A) 1.67 X 10*3/uL (0.90-5.00); Lymphocytes % (A) 23.5 %; MCH 33.5 pg (27.0-32.0); MCHC 32.1 g/dL (32.0-37.0); MCV 104.1 fL (80.0-97.0); Mean Platelet Volume 9.3 fL (9.5-12.2); Monocytes # (A) 0.58 X 10*3/uL (0.20-1.00); Monocytes % (A) 8.2 %; Neutrophils # (A) 4.29 X 10*3/uL (1.80-7.70); Neutrophils % (A) 60.3 %; Platelet Count 215 X 10*3/uL (140-440); RBC 2.42 X 10*6/uL (4.10-5.20); RDW 12.6 % (11.5-14.5); WBC 7.11 X 10*3/uL (4.50-10.00)
[2021-12-09 10:48] LABS: African American GFR (CKD) 105.4 (60.0-200.0); Anion Gap 8.2 mmol/L (10.00-18.00); BUN/Creat Ratio 10.57 Ratio (12.00-20.00); Blood Urea Nitrogen 7.4 mg/dL (9.0-27.0); Calcium 8.2 mg/dL (8.7-10.3); Carbon Dioxide 23.8 mmol/L (20.0-27.5); Non-African American GFR(CKD) 90.9 (60.0-200.0); Potassium 3.9 mmol/L (3.5-5.5)
[2021-12-09] MEDS ORDERED: DEXAMETHASONE SOD PHOSPHATE 10 MG/ML 1 ML VIAL IVP SCH (11:30)
[2021-12-09] MEDS ORDERED: INSULIN ASPART (NovoLOG) 100 UNIT/ML VIAL SQ SCH (12:30)
--- NOTE | 2021-12-09 13:07 | P.PN ---
Subjective Progress Note Date: 12/09/21 This is a 66-year-old female who is status post closed reduction and retrograde intramedullary nailing periprosthetic fracture left distal femur. This is postoperative day #2 and patient is seen and evaluated at bedside today. Patient states that her pain is improving and she has been able to work with p hysical therapy. Patient denies any new complaints today. Objective - Vital Signs Vital signs: Vital Signs Temp 98.1 F 12/09/21 10:00 Pulse 79 12/09/21 10:00 Resp 18 12/09/21 10:00 BP 110/69 12/09/21 10:00 Pulse Ox 92 L 12/09/21 11:38 Intake & Output 12/08/21 12/09/21 12/09/21 18:59 06:59 18:59 Intake Total 50 Output Total 850 Balance 50 -850 Intake: Intake, IV Titration 50 Amount ceFAZolin 2 gm In Sodium 50 Chloride 0.9% 50 ml @ 100 mls/hr IVPB Q8H [facility] Rx#: [id number] Output: Urine 850 Other: Voiding Method Indwelling Catheter Indwelling Catheter Indwelling Catheter - Exam Vital signs are stable. Patient is in no acute distress and is alert and oriented 3. Calf is soft and nontender to palpation. Dressings are clean, dry and intact drainage. Patient has full foot and ankle motion without pain or difficulty. Sensation intact. Neurovascular status and circulatory status are intact. - Labs CBC & Chem 7: 12/09/21 06:44 12/09/21 06:44 Labs: Abnormal Lab Results - Last 24 Hours (Table) 12/08/21 12/09/21 12/09/21 Range/Units 16:40 06:44 06:44 RBC 2.79 L 2.42 L (3.80-5.40) m/uL Hgb 9.6 L D 8.1 L (11.4-16.0) gm/dL Hct 28.9 L 25.2 L (34.0-46.0) % MCV 103.5 H 104.1 H (80.0-100.0) fL MCH 33.5 H (27.0-32.0) pg MPV 9.3 L (9.5-12.2) fL Eosinophils # 0.48 H (0.04-0.35) X 10*3/uL Anion Gap 8.20 L (10.00-18.00) mmol/L BUN 7.4 L (9.0-27.0) mg/dL BUN/Creatinine Ratio 10.57 L (12.00-20.00) Ratio Calcium 8.2 L (8.7-10.3) mg/dL Assessment and Plan Assessment: Status post closed reduction and retrograde intramedullary nailing periprosthetic fracture left distal femur. (1) Femur fracture Current Visit: Yes Status: Acute Code(s): S72.90XA - UNSP FRACTURE OF UNSP FEMUR, INIT ENCNTR FOR CLOSED FRACTURE SNOMED Code(s): 33287378 Plan: 1. Strictly nonweightbearing to the left lower extremity. 2. Xarelto for anticoagulation. 3. Continue routine postoperative care and pain control. 4. Appreciate input from internal medicine who is planning to monitor the patient overnight due to hemoglobin of 8.1. 5. Anticipate discharge to rehab in the next 24-48 hours.
--- NOTE | 2021-12-09 15:01 | P.PN ---
Subjective Progress Note Date: 12/09/21 This is a 66-year-old female with past medical history of ovarian cancer, status post chemotherapy 2015, COPD, gastroesophageal reflux disease, hyperlipidemia, hypertension, hypothyroidism, anxiety presented to the ER status post fall, slipped on ice, with significant lower extremity pain. Reports she stepped outside, wearing her slippers at dinnertime to tell Anette was ready and slipped on the ice, landing on her left side. Reports significant leg pain.Denies head trauma. Denies lightheadedness dizziness or focal deficits. Denies chest pain, palpitations or shortness of breath. Denies cough. Denies nausea vomiting or diarrhea. Tested positive for coronavirus PCR. CBC unremarkable. Coag panel negative. Chemistry unremarkable with the exception of sodium 127, potassium 3.2. Repeat labs ordered. Chest x-ray reporting lung nodules on the left measuring up to 6 mm, possible metastasis, no focal airspace opacity pneumothorax or large effusion. The heart is moderately enlarged, increased in size compared to prior. Femur fracture reporting left acute mildly comminuted oblique fracture of the distal femoral shaft, distal part of the more distal kidney medially and anteriorly with an approximate 8 cm proximal overlap, fracture line extends distally towards the superior aspect of the anterior part of the febrile arthroplasty component, the fracture line not visualized exte nding to the inferior endplate of the femur, cortical irregularity in the mid aspect of the femoral shaft may represent remote/healing fracture. Evaluated by orthopedic surgery and scheduled for surgery this afternoon. Afebrile, maintaining O2 sats in the 90s on room air. 12/08/2021 Underwent close reduction and retrograde intramedullary nailing periprosthetic fracture left distal femur, tolerated procedure well. Positive pain.dressing reflects sanguinous drainage. Denies chest pain, palpitations or shortness of breath. Denies cough or congestion. Afebrile, normal WBC. Hemoglobin 9.4, platelets 278. Maintained on IV fluid hydration, sodium 134. Received potassium and magnesium supplements yesterday, both today within normal limits. Diet intake fair, 25%. Creatinine 0.7. CA-125 antigen 3.0. Denies chest pain, palpitations or shortness of breath. Maintaining O2 sats in the 90s on room air. Incentive spirometer up to 1500. 12/09/2021 pain improving, PT assisted her to chair yesterday and is waiting to work with PT today. Patient had been on room air, given the night and required 2 L nasal cannula O2 to maintain O2 sats in the 90s; suspect related to Covid and atlectases. Denies cough or congestion .denies headache or chills.Denies chest pain, chest pressure or increased shortness of breath. Denies lightheadedness, dizziness or focal deficits. Recheck of hemoglobin yesterday afternoon minimally increased to 9.6. No further drainage reported of affected site. Repeat labs pending. Vital signs stable, afebrile. Good diet intake, denies nausea vomiting or diarrhea. Passing flatus. Objective - Vital Signs Vital signs: Vital Signs Temp 98.1 F 12/09/21 10:00 Pulse 79 12/09/21 10:00 Resp 18 12/09/21 10:00 BP 110/69 12/09/21 10:00 Pulse Ox 95 12/09/21 10:00 Intake & Output 12/08/21 12/09/21 12/09/21 18:59 06:59 18:59 Intake Total 50 Output Total 850 Balance 50 -850 Intake: Intake, IV Titration 50 Amount ceFAZolin 2 gm In Sodium 50 Chloride 0.9% 50 ml @ 100 mls/hr IVPB Q8H [facility] Rx#: [id number] Output: Urine 850 Other: Voiding Method Indwelling Catheter Indwelling Catheter Indwelling Catheter - Exam PHYSICAL EXAM: VITAL SIGNS: As above GENERAL: Alert and oriented 3, Sitting up in bed, no acute distress HEENT: Conjunctivae normal. eyes normal. Oral mucosa moist NECK: supple,No JVD. CARDIOVASCULAR: S1, S2 regular. No murmur. RESPIRATION: Nonlabored .Breath sounds diminished in the bases. ABDOMEN: Soft, nontender . No guarding. no masses palpable. Positive bowel sounds heard. LEGS: Left extremity surgical dressing /Radhames wrap C,D,I. Positive DP pulse NERVOUS SYSTEM: Cranial N 2-12 grossly normal. No focal deficits. Strength and sensation grossly intact. Skin: warm and dry, no rash - Labs CBC & Chem 7: 12/09/21 06:44 12/09/21 06:44 Labs: Abnormal Lab Results - Last 24 Hours (Table) 12/08/21 12/08/21 12/09/21 Range/Units 07:10 16:40 06:44 RBC 2.79 L 2.42 L (3.80-5.40) m/uL Hgb 9.6 L D 8.1 L (11.4-16.0) gm/dL Hct 28.9 L 25.2 L (34.0-46.0) % MCV 103.5 H 104.1 H (80.0-100.0) fL MCH 33.5 H (27.0-32.0) pg MPV 9.3 L (9.5-12.2) fL Eosinophils # 0.48 H (0.04-0.35) X 10*3/uL Sodium 134 L (135-145) mmol/L Anion Gap (10.00-18.00) mmol/L BUN 7.7 L (9.0-27.0) mg/dL BUN/Creatinine Ratio 11.24 L (12.00-20.00) Ratio Glucose 112 H (70-110) mg/dL Calcium 8.4 L (8.7-10.3) mg/dL 12/09/21 Range/Units 06:44 RBC (3.80-5.40) m/uL Hgb (11.4-16.0) gm/dL Hct (34.0-46.0) % MCV (80.0-100.0) fL MCH (27.0-32.0) pg MPV (9.5-12.2) fL Eosinophils # (0.04-0.35) X 10*3/uL Sodium (135-145) mmol/L Anion Gap 8.20 L (10.00-18.00) mmol/L BUN 7.4 L (9.0-27.0) mg/dL BUN/Creatinine Ratio 10.57 L (12.00-20.00) Ratio Glucose (70-110) mg/dL Calcium 8.2 L (8.7-10.3) mg/dL Assessment and Plan Assessment: Acute left distal Femur fracture,s/p fall, status post close reduction and retrograde intramedullary nailing periprosthetic fracture left distal femur. Acute COvid infection Acute blood loss anemia, postop, expected Acute hypoxic respiratory failure secondary to Covid, anemia Hyponatremia, improving Suspect Dehydration in a patient who consumes significant amounts of diet vernors Hypokalemia, resolved Hypomagnesemia, resolved Abnormal electrolytes possibly related to Covid. Lung nodules measuring up to 6 mm, possible lung metastasis, in a patient with history of prior ovarian CA, CA-125 3.0 History of right neck enlarged lymph node reported per carotid Doppler 08/03/2020 History of ovarian cancer diagnosed February 2015, last chemo 10/21/2015 History of Hypertensive emergency, symptomatic with dizziness,postural hypotension with dizziness side effect of Tenormin. Suspect rebound hypertension in a patient who had abruptly stopped her Tenormin. 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 Gastroesophageal reflux disease Hypertension, essential Hyperlipidemia COPD, stable Prior nicotine dependence Chronic back pain Hypothyroidism Plan: Continue on current medication regime ,monitoring and symptomatic treatment. Labs pending.Pain management.continue aggressive pulmonary toileting with incentive spirometer reinforced . Decadron added to Covid cocktail, as patient not requiring O2. Nursing to attempt weaning off O2. Repeat chest x- ray ordered for a.m. Pulmonary consulted.Close monitoring of coags, electrolytes with repeat labs ordered for a.m.discharge planning in progress to [facility], as per primary, pending improvement in oxygenation, hemoglobin. The impression and plan of care has been dictated as directed. : I performed a history and examination of this patient, discussed the same with the dictator. I agree with the dictator's note ,documented as a scribe. Any additional findings or plans will be noted.
[2021-12-09] MEDS: PRAVASTATIN SODIUM 80 MG TAB PO SCH (20:46)
[2021-12-09] MEDS: SENNOSIDES-DOCUSATE SODIUM 1 EACH TAB PO SCH (20:46)
[2021-12-10] MEDS: HYDROmorphone 1 MG/ML 1 ML SYRINGE IVP PRN ×2 (02:47→07:49)
[2021-12-10] MEDS: SODIUM CHLORIDE 0.9% 1,000 ML IV SCH ×2 (03:26→07:52)
[2021-12-10] MEDS: LEVOTHYROXINE 88 MCG TAB PO SCH (05:50)
--- NOTE | 2021-12-10 07:39 | XR ---
EXAMINATION TYPE: XR chest 1V portable DATE OF EXAM: 12/10/2021 COMPARISON: 12/06/2021 HISTORY: Shortness of breath TECHNIQUE: Single frontal view of the chest is obtained. FINDINGS: There has been interval development of mild linear opacities in the left lung base most li tameka representing mild atelectasis remainder the lungs are clear. There is no large pleural effusion and no pneumothorax. Heart is mildly prominent and the pulmonary vasculature is not congested. The osseous structures are intact IMPRESSION: Interval development of mild left lower lobe atelectasis. Mild cardiomegaly without over t CHF.
[2021-12-10] MEDS: POTASSIUM CHLORIDE ER 10 MEQ TAB.ER.PRT PO SCH (07:51)
[2021-12-10] MEDS: LOSARTAN 50 MG TAB PO SCH (07:51)
[2021-12-10] MEDS: ALPRAZolam 0.25 MG TAB PO SCH (07:51)
[2021-12-10] MEDS: MULTIVITAMINS, THERA 1 EACH TAB PO SCH (07:51)
[2021-12-10] MEDS: PANTOPRAZOLE 40 MG TABLET PO SCH (07:51)
[2021-12-10] MEDS: CHOLECALCIFEROL 25 MCG (1000 IU) TABLET PO SCH (07:51)
[2021-12-10] MEDS: ASCORBIC ACID 500 MG TAB PO SCH (07:51)
[2021-12-10] MEDS: RIVAROXABAN 10 MG TAB PO SCH (07:51)
[2021-12-10] MEDS: ZINC SULFATE 220 MG CAP PO SCH (07:51)
[2021-12-10] MEDS: ALBUTEROL HFA INHALER INHALATION SCH ×3 (09:34→15:59)
[2021-12-10 10:03] VITALS: RESP 18
--- NOTE | 2021-12-10 10:11 | P.DS ---
Providers Date of admission: 12/06/21 21:27 Expected date of discharge: 12/10/21 Attending physician: Dami Manrique Consults: 12/06/21 21:52 Consult Physician Routine Consulting Provider: Caleb Fisher Jr Consult Reason/Comments: medicine consult Do you want consulting provider notified?: Yes 12/09/21 11:20 Consult Physician Routine Consulting Provider: Aime Aleman Consult Reason/Comments: hypoxia,covid,hx ova ca. Do you want consulting provider notified?: Yes Primary care physician: Caleb Fisher - Discharge Diagnosis(es) (1) Asthma Current Visit: Yes Status: Acute (2) COVID Current Visit: Yes Status: Acute (3) Femur fracture Current Visit: Yes Status: Acute Hospital Course: This is a 66-year-old female who presented to the emergency department after sustaining a fall. She was found to have a left femur fracture proximal to her total knee replacement. She underwent a closed reduction and retrograde intramedullary nailing of the left femur on 12/07/2021. Upon admission, she did test positive for COVID. The procedure was performed without complications or sequelae. The patient is seen and evaluated at bedside today. Pain is well-controlled. Patient has no new complaints today and denies any fevers, chills, nausea, vomiting, or shortness of breath. Vital signs are stable. Dressing is clean dry and intact. Incision looks fine with no erythema or active drainage. Calf is soft and nontender. Patient has full foot and ankle motion without difficulty. Patient's left lower extremity is neurovascularly intact. The patient is orthopedically stable for discharge today. Patient Condition at Discharge: Stable Plan - Discharge Summary Discharge Rx Participant: No New Discharge Prescriptions: New HYDROcodone/APAP 7.5-325MG [[place] 7.5-325] 1 - 2 tab PO Q6H PRN #32 tab PRN Reason: Pain Sennosides [Senokot] 2 tab PO DAILY PRN #60 tablet PRN Reason: Constipation Rivaroxaban [Xarelto] 10 mg PO DAILY #30 tab No Action Omeprazole 20 mg PO DAILY Levothyroxine Sodium [Synthroid] 88 mcg PO DAILY ALPRAZolam [Xanax] 0.25 mg PO BID Ipratropium-Albuterol Nebulize [Duoneb 0.5 mg-3 mg/3 ml Soln] 3 ml INHALATION RT-QID PRN PRN Reason: Shortness Of Breath Losartan Potassium [Cozaar] 50 mg PO DAILY Pravastatin Sodium 80 mg PO HS Albuterol Sulfate [Proair Hfa] 2 puff INHALATION RT-Q6H PRN PRN Reason: Shortness Of Breath Aspirin EC [Ecotrin Low Dose] 81 mg PO DAILY #30 tablet. amLODIPine [Norvasc] 5 mg PO DAILY #30 tab Cholecalciferol [Vitamin D3 (25 Mcg = 1000 Iu)] 25 mcg PO DAILY Budesonide/Formoterol Fumarate [Symbicort 160-4.5 Mcg Inhaler] 2 puff INHALATION RT-BID Multivitamins, Thera [Multivitamin (formulary)] 1 tab PO DAILY Potassium Chloride ER [K-Dur 10] 10 meq PO W/BRKFST Ibuprofen [Motrin] 800 mg PO TID-W/MEALS PRN PRN Reason: Pain Or Fever > 100.5 Furosemide [Lasix] 20 mg PO BID Discharge Medication List Levothyroxine Sodium [Synthroid] 88 mcg PO DAILY 06/30/15 [History] Omeprazole 20 mg PO DAILY 06/30/15 [History] ALPRAZolam [Xanax] 0.25 mg PO BID 07/31/17 [History] Ipratropium-Albuterol Nebulize [Duoneb 0.5 mg-3 mg/3 ml Soln] 3 ml INHALATION RT-QID PRN 08/03/17 [History] Albuterol Sulfate [Proair Hfa] 2 puff INHALATION RT-Q6H PRN 08/03/20 [History] Losartan Potassium [Cozaar] 50 mg PO DAILY 08/03/20 [History] Pravastatin Sodium 80 mg PO HS 08/03/20 [History] Aspirin EC [Ecotrin Low Dose] 81 mg PO DAILY #30 tablet. 08/04/20 [Rx] amLODIPine [Norvasc] 5 mg PO DAILY #30 tab 08/04/20 [Rx] Budesonide/Formoterol Fumarate [Symbicort 160-4.5 Mcg Inhaler] 2 puff INHALATION RT-BID 12/06/21 [History] Cholecalciferol [Vitamin D3 (25 Mcg = 1000 Iu)] 25 mcg PO DAILY 12/06/21 [History] Furosemide [Lasix] 20 mg PO BID 12/06/21 [History] Ibuprofen [Motrin] 800 mg PO TID-W/MEALS PRN 12/06/21 [History] Multivitamins, Thera [Multivitamin (formulary)] 1 tab PO DAILY 12/06/21 [History] Potassium Chloride ER [K-Dur 10] 10 meq PO W/BRKFST 12/06/21 [History] HYDROcodone/APAP 7.5-325MG [[place] 7.5-325] 1 - 2 tab PO Q6H PRN #32 tab 12/08/21 [Rx] Rivaroxaban [Xarelto] 10 mg PO DAILY #30 tab 12/08/21 [Rx] Sennosides [Senokot] 2 tab PO DAILY PRN #60 tablet 12/08/21 [Rx] Follow up Appointment(s)/Referral(s): Veronica [facility], [NON-STAFF] - As Needed Ari Duke MD [STAFF PHYSICIAN] - 1 Week Dami Manrique DO [Doctor of Osteopathic Medicine] - 10 Days Activity/Diet/Wound Care/Special Instructions: Strictly nonweightbearing to the left lower extremity. Daily dressing changes. Maggie to be removed in 10-14 days. Xarelto for anticoagulation. Please follow-up with [facility] and call with any questions or concerns, . cbc,bmp in 3 days Incentive spirometer every hour 10 while awake Discharge Disposition: TRANSFER TO SNF/ECF
[2021-12-10 11:27] LABS: HCT 27.7 % (37.2-46.3); HGB 8.7 g/dL (12.0-15.0); MCH 33.1 pg (27.0-32.0); MCHC 31.4 g/dL (32.0-37.0); MCV 105.3 fL (80.0-97.0); Mean Platelet Volume 9.2 fL (9.5-12.2); Platelet Count 235 X 10*3/uL (140-440); RBC 2.63 X 10*6/uL (4.10-5.20); WBC 7.11 X 10*3/uL (4.50-10.00)
[2021-12-10] MEDS: SYMBICORT 160-4.5 MCG INHALER INHALATION SCH (11:42)
[2021-12-10 12:13] LABS: Basophils # (A) 0.04 X 10*3/uL (0.00-0.10); Basophils % (A) 0.6 %; Eosinophils # (A) 0.48 X 10*3/uL (0.04-0.35); Eosinophils % (A) 6.8 %; Lymphocytes % (A) 19.7 %; Neutrophils # (A) 4.67 X 10*3/uL (1.80-7.70); Neutrophils % (A) 65.6 %
--- NOTE | 2021-12-10 12:53 | P.PN ---
Progress Note - Text Progress Note Date: 12/10/21 Mrs. perkins is awake alert hemodynamically stable vital signs are stable This patient is cleared from my primary care point [facility] view [facility]
[2021-12-10] MEDS: HYDROcodone/APAP 7.5-325MG 1 EACH TAB PO PRN (13:49)
[2021-12-10 13:52] VITALS: BP 154/75; PULSE 114; TEMP 98.1
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
--- NOTE | 2021-12-10 15:19 | P.PN ---
Subjective Progress Note Date: 12/10/21 Principal diagnosis: Status post fall with left lower extremity fracture 66-year-old female patient, known history of COPD and ovarian cancer along with various other comorbid conditions such as hypertension and hyperlipidemia and hypothyroidism and history of chronic anxiety. The patient came into the ED after she slipped on ice. The patient encounter significant amount of pain lower extremity. She doesn't on her left side. She reported left leg pain. She came into the ED and the patient was found to have fracture in the left hip. The patient was found to have a comminuted oblique fracture of the distal femoral shaft. Noted the patient had a distal femur. His prostatic fracture as the patient is status post left knee arthroplasty back in 2020. At the same caleb e, the patient tested positive for covid 19. Orthopedic surgeries on the case. The patient was taken to the operating room and the patient underwent closed reduction and retrograde intramedullary nailing of the periprostatic fracture of the left distal femur. Surgery was done on 12/07/2021 and the patient is currently postop day #2. The patient is currently on 2 L of oxygen by nasal cannula with a pulse ox of 95%. Room air pulse ox is 92%. In terms of her Covid 19 infection, the patient had a chest x-ray and the lungs are essentially clear. No evidence of a pneumonia. No other densities were seen in the retrocardiac area and this obviously raises possibility of lesions or nodules in the setting of an underlying ovarian cancer. The patient has normal renal function with a creatinine of 0.7. Electrodes are all within normal limits. Her inflammatory markers have not been checked for now. The coagulation profile was normal. D-dimer is not available. The patient is currently on a combination of vitamin C and vitamin D and zinc. The patient is also receiving Xarelto 10 mg by mouth daily for DVT prophylaxis. The patient is on Dilaudid for pain control. The patient was not given any steroids. Home medications have been resumed for now. The patient is seen today 12/10/2021 in follow-up on the regular medical floor. She is currently resting fairly comfortably in bed. Awake and alert in no acute distress. She denies any shortness of breath, cough or congestion. X-ray reveals some left lower lobe atelectasis. Mild cardiomegaly without overt heart failure. He is maintaining O2 saturation in the 90s on room air. Afebrile. Hemodynamically stable. This is postoperative day #3 of a closed reduction and retrograde intramedullary nailing periprosthetic fracture of the distal left femur. The plan is for transfer to [facility] for subacute rehabilitation. White count 7.1. Hemoglobin 8.7. Platelets 235. Magnesium 1.7. She remains on Symbicort, albuterol. Anticoagulated with Xarelto. Continued on vitamin supplements. Objective - Vital Signs Vital signs: Vital Signs Temp 98.1 F 12/10/21 13:11 Pulse 114 H 12/10/21 13:11 Resp 18 12/10/21 13:11 BP 154/75 12/10/21 13:11 Pulse Ox 95 12/10/21 13:11 Intake & Output 12/09/21 12/10/21 12/10/21 18:59 06:59 18:59 Intake Total 100 Output Total 900 Balance 100 -900 Intake: Oral 100 Output: Urine 900 Other: Voiding Method Indwelling Catheter Indwelling Catheter Indwelling Catheter - Exam Gen. appearance A very pleasant 66-year-old female patient, is calm and comfortable, in no acute distress, on room air Head exam was generally normal. There was no scleral icterus or corneal arcus. Mucous membranes were moist. Neck was supple and without jugular venous distension, thyromegaly, or carotid bruits. Carotids were easily palpable bilaterally. There was no adenopathy. Lungs were clear to auscultation and percussion, and with normal diaphragmatic excursion. No wheezes or rales were noted. Cardiac exam revealed the PMI to be normally situated and sized. The rhythm was regular and no extrasystoles were noted during several minutes of auscultation. The first and second heart sounds were normal and physiologic splitting of the second heart sound was noted. There were no murmurs, rubs, clicks, or gallops. NOn acute abdomen, bowel sounds present Extremities reveal no obvious deformities in the lower extremity. Surgical wound site over the left lower extremity is dry clean and intact. The patient has good range of motion. Normal motor function. Calf is nontender. Examination of the skin revealed no evidence of significant rashes, suspicious appearing nevi or other concerning lesions. - Labs CBC & Chem 7: 12/10/21 06:30 12/09/21 06:44 Labs: Abnormal Lab Results - Last 24 Hours (Table) 12/10/21 Range/Units 06:30 RBC 2.63 L (4.10-5.20) X 10*6/uL Hgb 8.7 L (12.0-15.0) g/dL Hct 27.7 L (37.2-46.3) % MCV 105.3 H (80.0-97.0) fL MCH 33.1 H (27.0-32.0) pg MCHC 31.4 L (32.0-37.0) g/dL MPV 9.2 L (9.5-12.2) fL Eosinophils # 0.48 H (0.04-0.35) X 10*3/uL Assessment and Plan Assessment: 1 left sided displaced periprosthetic distal femur fracture, post surgery andc losed reduction and intramedullary nailing. The patient is postop day #3 2 Covid 19 infection, no clear indication of underlying pneumonia 3 pulmonary nodules subcentimeter involving the left lung 4 history of ovarian cancer back in 2014, post debulking surgery and post systemic chemotherapyin the follow-up CA 125 level today's at 3.0 which is low 5 hyponatremia, recovered 6 hypertension 7 hyperlipidemia 8 COPD 9 chronic back pain 10 hypothyroidism 11 left lung pulmonary nodules, subcentimeter in size, will need a CAT scan of the chest and later stage Plan The patient was seen and evaluated Stable from the pulmonary standpoint and on room air Plan is to transfer to subacute rehabilitation I, the cosigning physician, performed a history & physical examination of the patient. Lungs sounds are clear. Maintaining good O2 saturations in the 90s on room air. I discussed the assessment and plan of care with my nurse practitioner, Ayse Lake. I attest to the above note as dictated by her.
== END 2021-12-10 16:24 | DRG 480 ==
LOC: EC 19:40 → 4SSUR 21:27
PROVIDERS: ADMIT Orthopaedic Surgery; ATTEND Orthopaedic Surgery
PROC: 0QSC06Z Reposition Left Lower Femur with Intramedullary Internal Fixation Device, Open Approach (ICD-10-PCS; principal; 2021-12-07 09:00)
DX: M97.12XA Periprosthetic fracture around internal prosthetic left knee joint, initial encounter (principal); J96.01 Acute respiratory failure with hypoxia; U07.1 COVID-19; S72.402A Unspecified fracture of lower end of left femur, initial encounter for closed fracture; D62 Acute posthemorrhagic anemia; E87.1 Hypo-osmolality and hyponatremia; J98.11 Atelectasis; W00.0XXA Fall on same level due to ice and snow, initial encounter; E03.9 Hypothyroidism, unspecified; E78.5 Hyperlipidemia, unspecified; E83.42 Hypomagnesemia; E87.6 Hypokalemia; F41.9 Anxiety disorder, unspecified; G89.29 Other chronic pain; M54.9 Dorsalgia, unspecified; I10 Essential (primary) hypertension; J44.9 Chronic obstructive pulmonary disease, unspecified; K21.9 Gastro-esophageal reflux disease without esophagitis; R91.8 Other nonspecific abnormal finding of lung field; K58.9 Irritable bowel syndrome, unspecified; Y93.01 Activity, walking, marching and hiking; Z79.01 Long term (current) use of anticoagulants; Z79.51 Long term (current) use of inhaled steroids; Z79.82 Long term (current) use of aspirin; Z79.890 Hormone replacement therapy; Z79.899 Other long term (current) drug therapy; Z85.43 Personal history of malignant neoplasm of ovary; Z87.891 Personal history of nicotine dependence; Z90.710 Acquired absence of both cervix and uterus; Z98.51 Tubal ligation status; Z92.21 Personal history of antineoplastic chemotherapy; Z96.651 Presence of right artificial knee joint; Z90.49 Acquired absence of other specified parts of digestive tract; Z98.890 Other specified postprocedural states; Z87.01 Personal history of pneumonia (recurrent); Z87.09 Personal history of other diseases of the respiratory system; Z80.8 Family history of malignant neoplasm of other organs or systems
CPT/HCPCS: 36415; 71045; 73502; 80048; 83735; 84132; 85025; 85027; 85610; 85730; 86304; 86850; 86900; 86901; 87635; 93005; 93308; 94640; 94760; 96374; 96376; 99285

== ENCOUNTER → 2022-03-13 | Outpatient (CLI) | payer MEDICARE ==
--- NOTE | 2022-03-13 12:49 | US ---
EXAMINATION TYPE: US venous doppler duplex LE LT DATE OF EXAM: 03/13/2022 12:31 PM COMPARISON: NONE CLINICAL HISTORY: I80.9 PHLEBITIS AND THROMBOPHLEBITIS OF UNSPECIFIE. SIDE PERFORMED: TECHNIQUE: The lower extremity deep venous system is examined utilizing real time linear array sonog naina with graded compression, doppler sonography and color-flow sonography. VESSELS IMAGED: Common Femoral Vein Deep Femoral Vein Greater Saphenous Vein * Femoral Vein Popliteal Vein Small Saphenous Vein * Proximal Calf Veins (* superficial vessels) Left Leg: Negative for DVT. Edema channels are noted at popliteal fossa and throughout lower leg. IMPRESSION: No evidence for DVT at this time.
== END | disposition home or self-care (01) ==
LOC: RADUSWWP 12:00
PROVIDERS: ATTEND Orthopaedic Surgery
DX: I80.9 Phlebitis and thrombophlebitis of unspecified site (principal); M79.652 Pain in left thigh; M25.562 Pain in left knee; I10 Essential (primary) hypertension; E78.5 Hyperlipidemia, unspecified; Z85.9 Personal history of malignant neoplasm, unspecified; E03.9 Hypothyroidism, unspecified; Z87.891 Personal history of nicotine dependence; J98.4 Other disorders of lung; Z68.29 Body mass index [BMI] 29.0-29.9, adult; Z96.652 Presence of left artificial knee joint; S72.492D Other fracture of lower end of left femur, subsequent encounter for closed fracture with routine healing; Z48.89 Encounter for other specified surgical aftercare

== ENCOUNTER → 2022-05-02 | Outpatient (CLI) | payer MEDICARE ==
[2022-05-02 11:04] LABS: African American GFR (CKD) >90 (>60 ml/min/1.73 sqM); Blood Urea Nitrogen 16 mg/dL (7-17); Non-African American GFR(CKD) 80 (>60 ml/min/1.73 sqM)
--- NOTE | 2022-05-02 13:18 | CT ---
EXAMINATION TYPE: CT ChestAbdPelvis w con DATE OF EXAM: 05/02/2022 COMPARISON: CT dated 03/15/2021 HISTORY: Pt hx ovarian ca. She mentioned recent lung nodules were noted. She is having issues with co ughing. CT DLP: 1641.20 mGycm Automated exposure control for dose reduction was used. CONTRAST: CT scan of the chest, abdomen and pelvis is performed with Oral Contrast and with IV Contrast, patien t injected with 70 mL of Isovue 300. FINDINGS: LUNGS: Stable subcentimeter calcified granuloma in the left lower lobe. Newly seen 3 mm nodule at the posterior aspect of the right upper lobe, attention on follow-up. Subtle groundglass infiltration of the anterior aspect of the left upper lobe measuring 11 mm, not well appreciated previously. Bilater al basal subsegmental pulmonary atelectasis. Patent trachea and bronchi. No pleural effusion MEDIASTINUM: Scattered subcentimeter bilateral hilar and mediastinal calcified and noncalcified lymph nodes, stable. No progressive lymphadenopathy in the chest. Suspected cardiomegaly. Coronary and art erial atherosclerotic calcification. The pulmonary trunk measures 3.3 cm suggesting pulmonary hyperte nsion. No pericardial effusion. OTHER: Upper endplate depression of T12 vertebral body, stable with newly seen depression of upper e ndplate of T8 vertebral body demonstrating sclerotic changes within, possibly related to osteopenia. This could be acute or chronic, please correlate clinically. LIVER/GB: Previous cholecystectomy. No definite hepatic focal lesion. PANCREAS: No significant abnormality is seen. SPLEEN: Unchanged splenic calcifications. ADRENALS: No significant abnormality is seen. KIDNEYS: No significant abnormality is seen. BOWEL: Small sliding hiatal hernia, otherwise unremarkable stomach, duodenum and small bowel. Scatte red uncomplicated colonic diverticulosis. REPRODUCTIVE ORGANS: Previous hysterectomy. No gross adnexal mass. LYMPH NODES: Prominent left inguinal lymph nodes measuring up to 9 mm compared to 8 mm previously. A left external iliac lymph node measures 9 mm compared to 7 mm previously. No pathologically enlarged lymph nodes in the abdomen or the pelvis. OSSEOUS STRUCTURES: No aggressive bone lesion. Previous left femoral fixation. OTHER: Scattered arterial atherosclerotic calcification. No sizable ascites. Focal soft tissue thicke angela along the left pelvic sidewall inseparable from the sigmoid colon demonstrating a few air bubble s within, possibly related to chronic fibrotic changes however communication with the sigmoid colon o r fixed diverticula cannot be excluded. IMPRESSION: 1. Newly seen 3 mm nodule at the posterior aspect of the right upper lobe, recommend follow-up CT sca n in 3 months for reassessment. 2. Interval compression fracture of T8 vertebral body as described above, possibly related to osteope alisson and could be acute or chronic, please correlate clinically. 3. Slightly more prominent left inguinal and left external iliac lymph nodes which can be reassessed on the follow-up CT scan. Alternatively, further PET scan assessment can be considered. 4. No other evidence of metastatic disease seen in the chest, abdomen or the pelvis. Incidental findi ngs as described above.
== END | disposition home or self-care (01) ==
LOC: RADCTMAIN 09:58
PROVIDERS: ATTEND Internal Medicine Hematology & Oncology
DX: R91.1 Solitary pulmonary nodule (principal); M48.54XA Collapsed vertebra, not elsewhere classified, thoracic region, initial encounter for fracture; Z85.43 Personal history of malignant neoplasm of ovary
CPT/HCPCS: 82565; 84520; 71260; 74177; 36415; Q9967

== ENCOUNTER 2022-09-13 10:32 | Inpatient (IN) | payer MEDICARE ==
[2022-09-13] MEDS ORDERED: SODIUM CHLORIDE 0.9% 1,000 ML IV STA ×2 (12:01)
[2022-09-13] MEDS ORDERED: KETOROLAC 15 MG/ML 1 ML VIAL IVP STA (12:01)
[2022-09-13] MEDS ORDERED: ONDANSETRON 4 MG/2 ML VIAL IVP STA (12:01)
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
[2022-09-13 13:02] LABS: Basophils # (A) 0.1 k/uL (0-0.2); Basophils % (A) 0 %; Eosinophils # (A) 0.1 k/uL (0-0.7); Eosinophils % (A) 1 %; Lymphocytes # (A) 1.4 k/uL (1.0-4.8); Lymphocytes % (A) 10 %; MCH 33.9 pg (25.0-35.0); MCHC 35.6 g/dL (31.0-37.0); MCV 95.1 fL (80.0-100.0); Mean Platelet Volume 7.6; Monocytes % (A) 7 %; Neutrophils # (A) 11.4 k/uL (1.3-7.7); Neutrophils % (A) 81 %; Platelet Count 410 k/uL (150-450); RBC 4.73 m/uL (3.80-5.40); RDW 12.4 % (11.5-15.5)
--- NOTE | 2022-09-13 13:08 | XR ---
EXAMINATION TYPE: XR KUB DATE OF EXAM: 09/13/2022 COMPARISON: CT chest abdomen pelvis 05/02/2022 HISTORY: Abdominal pain TECHNIQUE: Upright KUB view of the abdomen is obtained with 2 radiographs. FINDINGS: Small bowel demonstrates no evidence for dilatation or air fluid levels. Gas and fecal material is seen in non-distended colon. No convincing evidence for pneumoperitoneum. Pelvic phlebolith in the right lower pelvis. Surgical clips demonstrated within the right upper quadrant and pelvis. The lung bases are clear. The osseous structures are intact. IMPRESSION: Overall nonobstructive bowel gas pattern.
[2022-09-13 13:16] LABS: Albumin 5.3 g/dL (3.5-5.0); Calcium 11.1 mg/dL (8.4-10.2); Magnesium 2.2 mg/dL (1.6-2.3); Potassium 4.2 mmol/L (3.5-5.1); Total Bilirubin 1.1 mg/dL (0.2-1.3); Total Protein 9.4 g/dL (6.3-8.2)
[2022-09-13] MEDS ORDERED: HYDROmorphone 1 MG/ML 1 ML SYRINGE IVP STA (13:35)
--- NOTE | 2022-09-13 14:15 | CT ---
EXAMINATION TYPE: CT abdomen pelvis wo con DATE OF EXAM: 09/13/2022 COMPARISON: 05/02/2022 HISTORY: 67-year-old female Abdominal and back pain, possible renal stones CT DLP: 965.8 mGycm. Automated exposure control for dose reduction was used. TECHNIQUE: Contiguous axial scanning of the abdomen and pelvis without IV contrast. Coronal and sagit allan reconstructions performed. FINDINGS: Heart upper limits of normal in size without pericardial effusion. RCA coronary artery calcifications are noted. Small to moderate-sized hiatal hernia. Strandy atelectasis or scarring in the lower lungs and no pleural effusion. Noncontrast appearance of the liver, adrenal glands, kidneys, and atrophic pancreas show no gross abn ormal body. Cholecystectomy clips. Calcified granulomas within the spleen. There is small ventral abdominal wall supraumbilical fat-containing hernias measuring up to 1.8 cm IMPRESSION: 1.
[2022-09-13] MEDS ORDERED: LEVOFLOXACIN 750MG-D5W PMX 750 MG in DEXTROSE/WATER 1 150ML.BAG IVPB STA (15:20)
[2022-09-13] MEDS ORDERED: NALOXONE 0.4 MG/ML 1 ML VIAL IV PRN (15:22)
[2022-09-13 15:42] LABS: Appearance,Urine Turbid (Clear); Bacteria,Urine Many /hpf; Bilirubin,Urine 1+ (Negative); Blood,Urine Trace (Negative); Budding Yeast,Urine Few /hpf; Color,Urine Red; Glucose,Urine (UA) Negative (Negative); Hyaline Casts,Urine 26 /lpf (0-2); Ketones,Urine Negative (Negative); Leukocyte Esterase,Urine Large (Negative); Mucus,Urine Occasional /hpf; Nitrite,Urine Negative (Negative); PH, Urine 5.5 (5.0-8.0); Protein,Urine 1+ (Negative); RBC,Urine 10 /hpf (0-5); Squamous Epithelial Cell,Urine 40 /hpf (0-4); WBC,Urine >182 /hpf (0-5)
[2022-09-13] MEDS: ONDANSETRON 4 MG/2 ML VIAL IVP PRN (17:51)
[2022-09-13] MEDS: SODIUM CHLORIDE 0.9% 1,000 ML IV SCH (17:55)
[2022-09-13] MEDS: HYDROmorphone 0.5 MG/0.5 ML SYRINGE IVP PRN ×2 (17:56→20:54)
--- NOTE | 2022-09-13 23:41 | XR ---
EXAMINATION TYPE: XR chest 1V portable DATE OF EXAM: 09/13/2022 COMPARISON: 12/10/2021 HISTORY: Tube placement TECHNIQUE: Single view FINDINGS: There is a nasogastric tube and the tip is over the body of the stomach. There is mild subs egmental atelectasis at the lung bases. No heart failure. There are no hilar masses. Mediastinum is n ormal. There are chest leads. IMPRESSION: Subsegmental atelectasis at the lung bases similar to old exam. NG tube is in good positi on in the stomach.
[2022-09-14] MEDS: HYDROmorphone 0.5 MG/0.5 ML SYRINGE IVP PRN ×8 (00:02→23:22)
[2022-09-14] MEDS: SODIUM CHLORIDE 0.9% 1,000 ML IV SCH ×4 (02:57→23:22)
[2022-09-14] MEDS: LORazepam 1 MG/0.5 ML VIAL IV PRN ×3 (06:05→23:22)
[2022-09-14] MEDS: IPRATROPIUM-ALBUTEROL 3 ML NEB INHALATION PRN (07:42)
[2022-09-14 08:03] LABS: Basophils # (A) 0.1 k/uL (0-0.2); Basophils % (A) 1 %; Eosinophils # (A) 0.2 k/uL (0-0.7); Eosinophils % (A) 1 %; HCT 36.5 % (34.0-46.0); Lymphocytes % (A) 8 %; MCHC 34.2 g/dL (31.0-37.0); MCV 99.4 fL (80.0-100.0); Mean Platelet Volume 7.1; Monocytes % (A) 8 %; Neutrophils # (A) 9.9 k/uL (1.3-7.7); Neutrophils % (A) 80 %; Platelet Count 293 k/uL (150-450); RBC 3.67 m/uL (3.80-5.40); RDW 12.4 % (11.5-15.5); WBC 12.4 k/uL (3.8-10.6)
[2022-09-14 08:12] LABS: HGB 12.5 gm/dL (11.4-16.0)
[2022-09-14 08:17] LABS: Albumin 3.9 g/dL (3.5-5.0); Calcium 8.4 mg/dL (8.4-10.2); Magnesium 1.8 mg/dL (1.6-2.3); Potassium 3.7 mmol/L (3.5-5.1); Total Bilirubin 0.5 mg/dL (0.2-1.3); Total Protein 6.8 g/dL (6.3-8.2)
[2022-09-14] MEDS: PANTOPRAZOLE 40 MG/10 ML VIAL IV SCH (09:43)
[2022-09-14] MEDS: ONDANSETRON 4 MG/2 ML VIAL IVP PRN (09:44)
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
[2022-09-14] MEDS ORDERED: LEVOFLOXACIN 500MG-D5W PMX 500 MG in DEXTROSE/WATER 1 100ML.BAG IVPB SCH (12:00)
--- NOTE | 2022-09-14 12:59 | FL ---
INDICATION: Patient age:Female; 67 years old; Reason for study: abd pain, sbo; PHH. COMPARISON: KUB 09/13/2022, CT abdomen and pelvis 09/13/2022. TECHNIQUE: The procedure was explained and patient history elicited. All patient questions were ans wered prior to start of procedure. A cosmetic chemist radiograph of the abdomen was also reviewed. Dilute Gastro grafin was administered through the patient's NG tube and incremental frontal abdominal radiographs w ere then taken until contrast was visualized in the cecum. Radiographs taken: 5 FINDINGS: The cosmetic chemist abdominal radiograph demonstrates dilated small bowel in the left abdomen measuring up to 4 .1 cm. NG tube terminates in the left upper quadrant. Cholecystectomy clips in the right upper quadra nt. Additional surgical clips in the pelvis. Pelvic phlebolith also visualized. The osseous structure s appear intact. Contrast is seen extending from the duodenojejunal junction into the cecum after 1 1/2 hours, which i s within the expected time period. There is dilatation of the proximal small bowel in the left abdom en with normal caliber small bowel in the right abdomen correlating to recent CT. The bowel measures up to 4.4 cm. There is normal distribution of the small bowel. No definitive intraluminal irregularit y. There is no displacement of bowel loops or extraluminal extravasation of contrast material. Small bowel mucosal folds are felt to be within normal limits. IMPRESSION: Small bowel in the left abdomen with normal transit time to the large bowel. Findings suggest ileus v ersus low-grade partial small bowel obstruction.
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
[2022-09-14] MEDS: SYMBICORT 160-4.5 MCG INHALER INHALATION SCH (19:24)
[2022-09-14] MEDS ORDERED: PRAVASTATIN SODIUM 80 MG TAB PO SCH (21:00)
[2022-09-15] MEDS: HYDROmorphone 0.5 MG/0.5 ML SYRINGE IVP PRN ×2 (05:35→09:56)
[2022-09-15] MEDS ORDERED: LEVOTHYROXINE 88 MCG TAB PO SCH (06:30)
[2022-09-15] MEDS: IPRATROPIUM-ALBUTEROL 3 ML NEB INHALATION PRN (07:46)
[2022-09-15] MEDS: SYMBICORT 160-4.5 MCG INHALER INHALATION SCH (07:47)
[2022-09-15 08:33] LABS: Basophils % (A) 0 %; Eosinophils # (A) 0.2 k/uL (0-0.7); Eosinophils % (A) 2 %; HCT 34.2 % (34.0-46.0); HGB 11.7 gm/dL (11.4-16.0); Lymphocytes # (A) 0.9 k/uL (1.0-4.8); Lymphocytes % (A) 9 %; MCH 33.8 pg (25.0-35.0); MCHC 34.1 g/dL (31.0-37.0); MCV 99.1 fL (80.0-100.0); Mean Platelet Volume 7.5; Monocytes # (A) 0.8 k/uL (0-1.0); Monocytes % (A) 9 %; Neutrophils # (A) 7.6 k/uL (1.3-7.7); Neutrophils % (A) 78 %; Platelet Count 258 k/uL (150-450); RBC 3.45 m/uL (3.80-5.40); RDW 12.4 % (11.5-15.5); WBC 9.6 k/uL (3.8-10.6)
[2022-09-15 08:48] LABS: Calcium 8.4 mg/dL (8.4-10.2); Potassium 3.6 mmol/L (3.5-5.1)
[2022-09-15] MEDS ORDERED: LOSARTAN 50 MG TAB PO SCH (09:00)
[2022-09-15] MEDS ORDERED: POTASSIUM CHLORIDE ER 10 MEQ TAB.ER.PRT PO SCH (09:00)
[2022-09-15] MEDS ORDERED: FUROSEMIDE 40 MG TAB PO SCH (09:00)
[2022-09-15] MEDS: PANTOPRAZOLE 40 MG/10 ML VIAL IV SCH (09:56)
[2022-09-15] MEDS ORDERED: ACETAMINOPHEN TAB 325 MG TAB PO PRN (10:43)
[2022-09-15] MEDS: SODIUM CHLORIDE 0.9% 1,000 ML IV SCH (10:49)
[2022-09-15 11:58] VITALS: BP 122/75; PULSE 75; RESP 15; TEMP 98.3
--- NOTE | 2022-09-15 13:13 | P.DS ---
Providers Date of admission: 09/13/22 15:23 Expected date of discharge: 09/15/22 Attending physician: Caleb Fisher Consults: 09/13/22 15:22 Consult Physician Urgent Consulting Provider: Reginaldo Sears Consult Reason/Comments: Small bowel obstruction, diverticular disease Do you want consulting provider notified?: Yes Primary care physician: Caleb Fisher - Discharge Diagnosis(es) (1) Urinary tract infection Current Visit: Yes Status: Acute (2) Abdominal pain Current Visit: Yes Status: Acute (3) Acute kidney injury Current Visit: Yes Status: Acute (4) Dehydration Current Visit: Yes Status: Acute (5) Elevated lactic acid level Current Visit: Yes Status: Acute (6) Elevated troponin Current Visit: Yes Status: Acute (7) Leukocytosis Current Visit: Yes Status: Acute (8) Nausea & vomiting Current Visit: Yes Status: Acute (9) Small bowel obstruction Current Visit: Yes Status: Acute Hospital Course: General: [Patient awake, alert and oriented times 3. Patient in no acute distress.] HEENT: [PERRL. EOMI. No pharyngeal erythema or exudate.] Neck: [No adenopathy.] Cardiac: [Heart regular in rate and rhythm. No S3. No S4. No clicks, rubs. No murmur.] Lungs: [Clear to auscultation bilaterally.] Abdomen: [No mass. No organomegaly. Bowel sounds presnt and normoactive in all 4 quadrants.] Extremes: [No edema no cyanosis no claudication normal pulses] : normal female genitalia Musculoskeletal: [No joint erythema, edema or tenderness.] Skin: [No rash.] Neurologic: [No lateralizing deficits. CN II - XII grossly intact.] Lymphatic: [No adenopathy.] admitting diagnosis of small bowel obstruction Patient Condition at Discharge: Fair Plan - Discharge Summary Discharge Rx Participant: No New Discharge Prescriptions: No Action Omeprazole 20 mg PO DAILY Levothyroxine Sodium [Synthroid] 88 mcg PO DAILY ALPRAZolam [Xanax] 0.25 mg PO BID PRN PRN Reason: Anxiety Ipratropium-Albuterol Nebulize [Duoneb 0.5 mg-3 mg/3 ml Soln] 3 ml INHALATION RT-BID Pravastatin Sodium 80 mg PO HS Budesonide/Formoterol Fumarate [Symbicort 160-4.5 Mcg Inhaler] 2 puff INHALATION RT-BID Potassium Chloride ER [K-Dur 10] 10 meq PO DAILY Furosemide [Lasix] 40 mg PO DAILY Losartan Potassium [Cozaar] 100 mg PO DAILY Discharge Medication List Levothyroxine Sodium [Synthroid] 88 mcg PO DAILY 06/30/15 [History] Omeprazole 20 mg PO DAILY 06/30/15 [History] ALPRAZolam [Xanax] 0.25 mg PO BID PRN 07/31/17 [History] Ipratropium-Albuterol Nebulize [Duoneb 0.5 mg-3 mg/3 ml Soln] 3 ml INHALATION RT-BID 08/03/17 [History] Pravastatin Sodium 80 mg PO HS 08/03/20 [History] Budesonide/Formoterol Fumarate [Symbicort 160-4.5 Mcg Inhaler] 2 puff INHALATION RT-BID 12/06/21 [History] Furosemide [Lasix] 40 mg PO DAILY 12/06/21 [History] Potassium Chloride ER [K-Dur 10] 10 meq PO DAILY 12/06/21 [History] Losartan Potassium [Cozaar] 100 mg PO DAILY 09/13/22 [History] Follow up Appointment(s)/Referral(s): Reginaldo Sears MD [Medical Doctor] - 2 Weeks Caleb Fisher Jr, DO [Primary Care Provider] - 1-2 days Patient Instructions/Handouts: Soft Diet (DC), Ileus (DC) Activity/Diet/Wound Care/Special Instructions: continue on a soft diet for 3-4 days post discharge. follow up with dr sears outpatient. Discharge/Stand Alone Forms: Who Do I Call?, Community Resources
[2022-09-15] MEDS ORDERED: ALPRAZolam 0.25 MG TAB PO PRN (13:16)
--- NOTE | 2022-09-15 13:18 | P.PN ---
Subjective Progress Note Date: 09/15/22 CHIEF COMPLAINT: Abdominal pain with nausea and vomiting HISTORY OF PRESENT ILLNESS: Patient reports that her abdominal pain has improved. She denies any nausea or vomiting. She is having multiple bowel movements. She's asking for advancement in her diet. She is currently on clear liquids. Patient's small bowel follow-through showed small bowel and the left abdomen with normal transit time due to the large bowel. Findings consistent with ileus versus low-grade partial small bowel obstruction. Patient's NG tube was discontinued yesterday. Afebrile. White count is down from 12.4-9.6 hemoglobin is 11.7 platelets 258 sodium is 138 potassium 3.6 creatinine is trending down from 3.25-1.36 PHYSICAL EXAM: VITAL SIGNS: Reviewed. GENERAL: Well-developed in no acute distress. HEENT: No sclera icterus. Extraocular movements grossly intact. Moist buccal mucosa. Head is atraumatic, normocephalic. ABDOMEN: Soft. Nondistended. Nontender. NEUROLOGIC: Alert and oriented. Cranial nerves II through XII grossly intact. ASSESSMENT: 1. Partial small bowel obstruction 2. Fat-containing abdominal wall hernia 3. Small air collection in the left iliopsoas region PLAN: -Advanced diet to full liquids and then as tolerated -Patient can be discharged from surgical standpoint -Continue soft diet at home Physician Cash Management Clerk note has been reviewed by physician. Signing provider agrees with the documented findings, assessment, and plan of care. I have personally seen and examined the patient, reviewed the CASINO DUTY MANAGER /PAs history, exam and MDM and agree with the assessment and plan as written. Based on total visit time, I have performed more than 50% of the visit. As above: Patient doing well today. Tolerating diet. No abdominal pain currently. May discharge from our point of view. Follow-up as outpatient. Objective - Vital Signs Vital signs: Vital Signs Temp 98.3 F 09/15/22 11:57 Pulse 75 09/15/22 11:57 Resp 15 09/15/22 11:57 BP 122/75 09/15/22 11:57 Pulse Ox 97 09/15/22 11:57 FiO2 Intake & Output 09/14/22 09/15/22 09/15/22 18:59 06:59 18:59 Intake Total 540 3025 0 Balance 540 3025 0 Intake: Intake, IV Titration 2000 Amount Sodium Chloride 0.9% 1, 2000 000 ml @ 130 mls/hr IV . Q7H42M [facility] Rx#:[id number] Oral 540 1025 0 Other: Voiding Method Toilet Toilet Bedside Commode # Voids 1 4 # Bowel Movements 1 1 - Labs CBC & Chem 7: 09/15/22 08:19 09/15/22 08:19 Labs: Abnormal Lab Results - Last 24 Hours (Table) 09/15/22 09/15/22 Range/Units 08:19 08:19 RBC 3.45 L (3.80-5.40) m/uL Lymphocytes # 0.9 L (1.0-4.8) k/uL BUN 24 H (7-17) mg/dL Creatinine 1.36 H (0.52-1.04) mg/dL Glucose 117 H (74-99) mg/dL Microbiology - Last 24 Hours (Table) 09/13/22 15:07 Urine Culture - Preliminary Urine,Voided Gram Neg Bacilli 09/13/22 12:51 Blood Culture - Preliminary Blood No Growth after 24 hours
[2022-09-15] MEDS ORDERED: LEVOFLOXACIN 250MG-D5W PMX 250 MG in DEXTROSE/WATER 1 50ML.BAG IVPB SCH (16:00)
[2022-09-16] MEDS ORDERED: PANTOPRAZOLE 40 MG TABLET PO SCH (07:30)
== END 2022-09-15 14:17 | disposition home or self-care (01) | DRG 389 ==
LOC: EC 10:32 → 4SSUR 15:23 → 5NMEDONC 15:36 → 3SCARD 15:42
PROVIDERS: ADMIT Family Medicine; ATTEND Family Medicine
DX: K56.600 Partial intestinal obstruction, unspecified as to cause (principal); N17.9 Acute kidney failure, unspecified; N39.0 Urinary tract infection, site not specified; K56.7 Ileus, unspecified; K57.30 Diverticulosis of large intestine without perforation or abscess without bleeding; K44.9 Diaphragmatic hernia without obstruction or gangrene; K43.9 Ventral hernia without obstruction or gangrene; B96.20 Unspecified Escherichia coli [E. coli] as the cause of diseases classified elsewhere; G89.29 Other chronic pain; E78.5 Hyperlipidemia, unspecified; J44.9 Chronic obstructive pulmonary disease, unspecified; E86.0 Dehydration; F41.9 Anxiety disorder, unspecified; Z96.659 Presence of unspecified artificial knee joint; I10 Essential (primary) hypertension; K58.9 Irritable bowel syndrome, unspecified; Z92.21 Personal history of antineoplastic chemotherapy; Z79.01 Long term (current) use of anticoagulants; Z79.51 Long term (current) use of inhaled steroids; Z79.82 Long term (current) use of aspirin; Z79.890 Hormone replacement therapy; Z79.899 Other long term (current) drug therapy; Z85.43 Personal history of malignant neoplasm of ovary; Z87.891 Personal history of nicotine dependence; Z90.49 Acquired absence of other specified parts of digestive tract; Z90.710 Acquired absence of both cervix and uterus; Z87.81 Personal history of (healed) traumatic fracture; Z98.51 Tubal ligation status; Z88.1 Allergy status to other antibiotic agents; R79.89 Other specified abnormal findings of blood chemistry
CPT/HCPCS: 36415; 71045; 74018; 74176; 74250; 80048; 80053; 81001; 82150; 83605; 83690; 83735; 84484; 85025; 87040; 87077; 87086; 87186; 94640; 96361; 96365; 96375; 99285

== ENCOUNTER → 2023-04-05 | Outpatient (CLI) | payer MEDICARE ==
--- NOTE | 2023-04-05 09:06 | CT ---
EXAMINATION TYPE: CT chest wo con DATE OF EXAM: 04/05/2023 COMPARISON: Most recent CT May 02, 2022 and older CTs HISTORY: lung nodule, history of ovarian cancer. CT DLP: 441.3 mGycm. Automated Exposure Control for Dose Reduction was Utilized. TECHNIQUE: CT scan of the thorax is performed without IV contrast. FINDINGS: LUNGS: There is vako-jh-zothadru bilateral lower lung linear scarring redemonstrated. Stable peripher al 6 mm calcified subpleural nodule or granuloma left lower lobe axial image 31 current study. No deepika picious noncalcified new greater than 5 mm parenchymal nodule or mass is present bilaterally. The randa or 3 mm posterior right upper lobe nodule not clearly well visualized. There is no pleural effusion o r pneumothorax seen. The tracheobronchial tree is patent. MEDIASTINUM: There are no new greater than 1 cm noncalcified hilar or mediastinal lymph nodes. Promin ent calcified left hilar lymph nodes are redemonstrated. No significant pericardial effusion is seen . Stable somewhat small size thyroid with inferior 3 mm calcification on the right . Stable cardiomeg arsalan. Coronary artery calcification is redemonstrated. Prominent main pulmonary artery suggestive of u nderlying pulmonary artery hypertension is redemonstrated. OTHER: Scattered calcifications throughout the spleen consistent with product of old granulomatous di sease are redemonstrated. Cholecystectomy clips are redemonstrated. Cortical thinning bilaterally. Ve ntral wall hernia sagittal image 60 in the abdomen is partially imaged. Some prominent Schmorl nodes are again seen in the thoracic spine. IMPRESSION: No significant new or enlarging greater than 5 mm pulmonary nodules to suggest metastatic disease.
--- NOTE | 2023-04-06 08:41 | MM ---
Reason for Exam: Screening (asymptomatic). Last mammogram was performed 2 year(s) and 6 month(s) ago. Patient History: Menarche at age 16. First Full-Term at age 31. Late child-bearing (after 31). Left ovary removed at age 60. Right ovary removed at age 60. Hysterectomy at age 60. Postmenopausal. Ovarian cancer, age 60. Risk Values: Dagmar 5 year model risk: 2.1%. NCI Lifetime model risk: 7.5%. Prior Study Comparison: 09/13/2017 Bilateral Screening Mammogram, [facility]. 09/16/2018 Bilateral Screening Mammogram, [facility]. 09/27/2020 Bilateral Screening Mammogram, [facility]. Tissue Density: The breast tissue is heterogeneously dense. This may lower the sensitivity of mammography. Findings: Analyzed By CAD. There is no suspicious group of microcalcifications or new suspicious mass in either breast. Benign round appearing calcifications within both breasts. Overall Assessment: Benign, BI-RAD 2 Management: Screening Mammogram of both breasts in 1 year. A clinical breast exam by your physician is recommended on an annual basis and results should be correlated with mammographic findings. Electronically signed and approved by: Alexandru Garcia D.O.
== END | disposition home or self-care (01) ==
LOC: RADCTMAIN 07:40
PROVIDERS: ATTEND Internal Medicine Hematology & Oncology
DX: Z12.31 Encounter for screening mammogram for malignant neoplasm of breast (principal); C56.1 Malignant neoplasm of right ovary; Z78.0 Asymptomatic menopausal state
CPT/HCPCS: 71250; 77067

== ENCOUNTER 2024-01-29 11:16 | Day surgery (SDC) | payer MEDICARE ==
[~2024-01-29 11:16] MED LIST changes: -DEXAMETHASONE SOD PHOSPHATE 10 MG/ML 1 ML VIAL IV ONE; -HEPARIN SODIUM,PORCINE 5,000 UNIT/ML 1 ML VIAL SQ ONE; +HYDROmorphone 0.5 MG/0.5 ML SYRINGE IVP PRN; -LACTATED RINGERS 1,000 ML IV SCH; -ONDANSETRON 4 MG/2 ML VIAL IVP ONE; +Pre Op ABX Message 1 EACH MISC MISCELLANE ONE; -SCOPOLAMINE 1.5MG/72HR PATCH TRANSDERM ONE; -ceFAZolin 2 GM in SODIUM CHLORIDE 0.9% 100 ML IVPB ONE
[2024-01-29] MEDS: ACETAMINOPHEN TAB 500 MG TAB PO PRN (12:11)
[2024-01-29] MEDS: DEXAMETHASONE SOD PHOSPHATE 4 MG/ML 1 ML VIAL IV ONE (12:17)
[2024-01-29] MEDS: LIDOCAINE 1% (10MG/ML) FOR IV START INTRADERMA PRN (12:17)
[2024-01-29] MEDS: LACTATED RINGERS 1,000 ML IV SCH (12:17)
[2024-01-29] MEDS: ONDANSETRON 4 MG/2 ML VIAL IVP ONE (12:18)
[2024-01-29] MEDS: HEPARIN SODIUM,PORCINE 5,000 UNIT/ML 1 ML VIAL SQ PRN (12:21)
[2024-01-29] MEDS: MIDAZOLAM 2 MG/2 ML VIAL IVP ONE (12:45)
[2024-01-29] MEDS ORDERED: PHENYLEPHRINE-0.9% NACL SYG 1,000 MCG/10 ML SYRINGE ONE (13:11)
[2024-01-29] MEDS ORDERED: PROPOFOL 10 MG/ML 20 ML VIAL IV ONE (13:11)
[2024-01-29] MEDS ORDERED: MIDAZOLAM 2 MG/2 ML VIAL ONE (13:11)
[2024-01-29] MEDS ORDERED: ceFAZolin 1 GM/50 ML BAG (PMX) ONE (13:11)
[2024-01-29] MEDS ORDERED: fentaNYL (PF) 50 MCG/ML 2 ML AMP ONE (13:11)
[2024-01-29] MEDS ORDERED: LIDOCAINE 1% INJ 10MG/ML (20 ML MDV) ONE (13:11)
[2024-01-29] MEDS ORDERED: GLYCOPYRROLATE 0.2 MG/ML 2 ML VIAL ONE (13:11)
[2024-01-29] MEDS ORDERED: SUCCINYLCHOLINE CHLORIDE 200 MG/10 ML VIAL IV ONE (13:11)
--- NOTE | 2024-01-29 13:15 | P.GSHP ---
History of Present Illness H&P Date: 01/29/24 Chief Complaint: GERD, dysphagia, metastatic cancer 68-year-old female here for upper endoscopy and Port-A-Cath placement. Patient has history of ovarian cancer and recently had study suggesting the presence of diffuse metastasis. Patient with significant dysphagia symptoms. Symptoms of dysphagia for 1 month. Not tolerating solid foods. Past Medical History Past Medical History: Cancer, COPD, GERD/Reflux, Hyperlipidemia, Hypertension, Osteoarthritis (OA), Pneumonia, Thyroid Disorder Additional Past Medical History / Comment(s): OVARIAN CANCER (DX 02/2015) LAST CHEMO Sep., IBS,CHRONIC BACK PAIN, HX OF BRONCHITIS. cancer reoccurence - mass in esophagus and liver History of Any Multi-Drug Resistant Organisms: None Reported Past Surgical History: Cholecystectomy, Hysterectomy, Orthopedic Surgery, Tubal Ligation Additional Past Surgical History / Comment(s): PORT-A-CATH RT CHEST(04/2015),and removal of port, COLONOSCOPY,. EXCISION LIPOMA FROM ABD. WALL. Total Hysterectomy. LT FEMUR x2. knee replacement 03/2021 Past Anesthesia/Blood Transfusion Reactions: No Reported Reaction Additional Past Anesthesia/Blood Transfusion Reaction / Comment(s): NO COMPLICATIONS WITH BLOOD TRANSFUSION. Smoking Status: Former smoker - Past Family History Mother Family Medical History: Cancer Additional Family Medical History / Comment(s): SQUAMOUS CELL CA-NECK Father History Unknown: Yes Medications and Allergies Home Medications Medication Instructions Recorded Confirmed Type Levothyroxine Sodium [Synthroid] 88 mcg PO DAILY 06/30/15 01/29/24 History Omeprazole 20 mg PO DAILY 06/30/15 01/29/24 History ALPRAZolam [Xanax] 0.25 mg PO BID PRN 07/31/17 01/29/24 History Ipratropium-Albuterol Nebulize 3 ml INHALATION RT-BID 08/03/17 01/29/24 History [Duoneb 0.5 mg-3 mg/3 ml Soln] Pravastatin Sodium 80 mg PO HS 08/03/20 01/29/24 History Furosemide [Lasix] 40 mg PO DAILY 12/06/21 01/29/24 History Potassium Chloride ER [K-Dur 10] 10 meq PO DAILY 12/06/21 01/29/24 History Losartan Potassium [Cozaar] 100 mg PO DAILY 09/13/22 01/29/24 History Fluticasone Propion/Salmeterol 2 puff INHALATION BID 01/24/24 01/29/24 History [Advair Hfa 230-21 Mcg Inhaler] HYDROcodone/APAP 7.5-325MG [[place] 1 tab PO DIRECTED PRN 01/24/24 01/29/24 History 7.5-325] Ibuprofen [Motrin] 800 mg PO DIRECTED PRN 01/24/24 01/29/24 History Unk Vitamin D3 1 tab PO DAILY 01/24/24 01/29/24 History Allergies Allergy/AdvReac Type Severity Reaction Status Date / Time amoxicillin Allergy Rash/Hives Verified 01/29/24 12:00 Surgical - Exam Vital Signs Temp Pulse Resp BP Pulse Ox 97.9 F 97 18 119/74 98 01/29/24 11:59 01/29/24 11:59 01/29/24 11:59 01/29/24 11:59 01/29/24 11:59 Physical exam: General: Well-developed, well-nourished HEENT: Normocephalic, sclerae nonicteric Abdomen: Nontender, nondistended Extremities: No edema Neuro: Alert and oriented Assessment and Plan (1) History of ovarian cancer Narrative/Plan: Will proceed with EGD and Port-A-Cath placement at this time. Risks of bleeding, infection, DVT, pneumothorax, catheter malfunction, anesthesia related complications were discussed. The patient understands and wishes to proceed. Current Visit: No Status: Acute Code(s): Z85.43 - PERSONAL HISTORY OF MALIGNANT NEOPLASM OF OVARY SNOMED Code(s): 882531821
[2024-01-29] MEDS: LIDOCAINE 1% INJ 10MG/ML (20 ML MDV) SQ ONE ×3 (13:29→13:48)
--- NOTE | 2024-01-29 14:25 | FL ---
Fluoroscopy History: INSERT PORT A CATH insert port-a-cath. 10 sec fl time. .96 mgy.
[2024-01-29] MEDS ORDERED: NALOXONE 0.4 MG/ML 1 ML VIAL IV PRN (14:28)
--- NOTE | 2024-01-29 14:32 | P.OP ---
Date of Procedure: 01/29/24 Procedure(s) Performed: PREOPERATIVE DIAGNOSIS: Suspected metastatic cancer, history of ovarian cancer, dysphagia POSTOPERATIVE DIAGNOSIS: Same, distal esophageal mass, gastritis PROCEDURE: Port-A-Cath placement with fluoroscopic and ultrasound guidance, EGD with biopsy SURGEON: Krishna EBL: Minimal ANESTHESIA: General COMPLICATIONS: None OPERATIVE PROCEDURE: Patient was brought and placed on the operative table in the supine position. The patient was placed under general anesthesia at that time. The chest and neck were prepped and draped in usual sterile fashion. The ultrasound probe was used to identify the location of the right internal jugular vein. The skin was localized with lidocaine. The Seldinger needle was advanced into the IJ under ultrasound guidance. The wire was advanced through the needle under fluoroscopic guidance into the superior vena cava. A port pocket was created in the right infraclavicular location. The catheter was tunneled from the wire entrance site to the port pocket. The port was then connected to the catheter. The dilator introducer was threaded over the guidewire. The guidewire and dilator were then removed. The catheter was advanced through the introducer and introducer was then removed. The tip was seen to be in the right atrial junction via fluoroscopy. A picture of the radiograph showing the tip of the catheter was taken. Port was flushed with both saline and a Hep-Lock solution. There was good flow both in and out of the port. The port was sutured in underlying tissues using 3-0 silk sutures. The subcutaneous tissues were reapproximated using 3-0 Vicryl sutures and the skin at both locations using 4-0 Monocryl sutures. Skin glue and sterile dressings then applied. Next the Olympus gastroscope was inserted into the oropharynx and passed under direct visualization to the region of the third portion of the duodenum. From that point the scope was slowly withdrawn inspecting all surfaces carefully. There were no neoplastic inflammatory or polypoid lesions throughout the duodenum. The pylorus was widely patent. The stomach was carefully inspected. There was diffuse gastritis with thickened folds present. Most of the thickened folds were present in the body of the stomach. A biopsy of the antrum took place and also of the body of the stomach. Retroflexion revealed a normal hiatus. Just above the GE junction however was a ulcerated circumferential partially obstructing mass that extended approximately 9 cm in length. Numerous areas of this suspected malignancy had deep ulcerations present. Our smaller gastroscope was able to navigate through this without meeting any resistance. That being said this appeared to be the obvious source of the patient's dysphagia. The proximal esophagus appeared normal. Numerous biopsies of the esophageal mass took place. The patient was then taken to the recovery room in stable condition per anesthesia guidelines. Recommendations: Await biopsy results. May utilize Port-A-Cath at this time. Patient may benefit from gastrostomy tube placement if no definitive surgical resection planned given the patient's poor oral intake.
[2024-01-29 15:00] VITALS: TEMP 96.9
[2024-01-29 15:34] VITALS: BP 137/85; PULSE 90; RESP 16
--- NOTE | 2024-01-29 15:39 | XR ---
EXAMINATION TYPE: XR chest 1V confirm line [facility] DATE OF EXAM: 01/29/2024 HISTORY: Shortness of breath. COMPARISON: 09/13/2022 TECHNIQUE: Single view of the chest is submitted. FINDINGS: Demonstrated are scattered senescent parenchymal change. Right IJ central venous line is noted with distal tip overlying the SVC. No evidence for pneumothorax . No infiltrate seen. The heart is stable. Hilar and mediastinal structures are within normal limits. Degenerative changes are seen of the dorsal spine. IMPRESSION: 1. Chronic changes without evidence for acute pulmonary disease.
== END 2024-01-29 15:54 | disposition home or self-care (01) ==
LOC: OR 11:16
PROVIDERS: ATTEND Surgery
DX: C15.9 Malignant neoplasm of esophagus, unspecified (principal); K29.50 Unspecified chronic gastritis without bleeding; Z45.2 Encounter for adjustment and management of vascular access device; K31.7 Polyp of stomach and duodenum; K21.9 Gastro-esophageal reflux disease without esophagitis; J44.9 Chronic obstructive pulmonary disease, unspecified; I10 Essential (primary) hypertension; E78.5 Hyperlipidemia, unspecified; M19.90 Unspecified osteoarthritis, unspecified site; E07.9 Disorder of thyroid, unspecified; K58.9 Irritable bowel syndrome, unspecified; Z79.51 Long term (current) use of inhaled steroids; Z85.43 Personal history of malignant neoplasm of ovary; Z87.891 Personal history of nicotine dependence; Z90.49 Acquired absence of other specified parts of digestive tract; Z79.890 Hormone replacement therapy; Z79.899 Other long term (current) drug therapy
CPT/HCPCS: 36561; 88305; 88342; 88341; 77001; 43239; C1788; J2250; J0330; J1644; J1100; J2405; J2001; J3010; J1642; J0690; J2704; J2371

== ENCOUNTER → 2024-02-08 | Outpatient (CLI) | payer MEDICARE ==
--- NOTE | 2024-02-08 18:19 | CA ---
Transthoracic Echo Report Name: Joslyn Real Age: 68 Gender: F : 1955 Exam Date: 02/08/2024 13:41 Exam Location: [place] [facility] Ht (in): 65 Wt (lb): 169 Ordering Physician: Rusty Patterson MD Attending/Referring Phys: Hearing Aid Repairer Dorcas Justice RDCS Procedure CPT: Indications: Z01.818 ENCOUNTER FOR OTHER PREPROCEDURAL EXAMINAT Cardiac Hx: Technical Quality: Fair Contrast 1: Total Dose (mL): Contrast 2: Total Dose (mL): MEASUREMENTS (Male / Female) Normal Values 2D ECHO LV Diastolic Diameter PLAX 3.5 cm 4.2 - 5.9 / 3.9 - 5.3 cm LV Systolic Diameter PLAX 2.1 cm IVS Diastolic Thickness 1.4 cm 0.6 - 1.0 / 0.6 - 0.9 cm LVPW Diastolic Thickness 1.5 cm 0.6 - 1.0 / 0.6 - 0.9 cm LV Relative Wall Thickness 0.8 RV Internal Dim ED PLAX 3.5 cm LA Volume 46.2 cm??? 18 - 58 / 22 - 52 cm??? LA Volume Index 24.4 cm???/m??? 16 - 28 cm???/m??? M-MODE Aortic Root Diameter MM 3.6 cm LA Systolic Diameter MM 3.8 cm LA Ao Ratio MM 1.1 AV Cusp Separation MM 1.9 cm DOPPLER AV Peak Velocity 172.1 cm/s AV Peak Gradient 11.8 mmHg AV Mean Velocity 127.4 cm/s AV Mean Gradient 7.0 mmHg AV Velocity Time Integral 34.4 cm LVOT Peak Velocity 103.2 cm/s LVOT Peak Gradient 4.3 mmHg LVOT Velocity Time Integral 21.1 cm MV Area PHT 3.8 cm??? Mitral E Point Velocity 67.3 cm/s Mitral A Point Velocity 78.0 cm/s Mitral E to A Ratio 0.9 MV Deceleration Time 199.5 ms MV E' Velocity 3.7 cm/s Mitral E to MV E' Ratio 18.2 TR Peak Velocity 233.8 cm/s TR Peak Gradient 21.9 mmHg Right Ventricular Systolic Press 26.4 mmHg FINDINGS Left Ventricle Moderately increased left ventricular wall thickness. Normal left ventricular systolic function with no obvious regional wall motion abnormalities. Left ventricular ejection fraction is estimated at 55 %. Grade 2 diastolic dysfunction. Right Ventricle Mild right ventricular dilatation. Right ventricular systolic pressure within normal limits. Right Atrium Normal right atrial size. Left Atrium Normal left atrial size. Mitral Valve Structurally normal mitral valve. Mild mitral annular calcification. Mild mitral regurgitation. Aortic Valve No aortic valve stenosis or regurgitation. Tricuspid Valve Structurally normal tricuspid valve. Mild tricuspid regurgitation. Pulmonic Valve Structurally normal pulmonic valve. Pericardium No pericardial effusion. Aorta Normal size aortic root and proximal ascending aorta. Aortic root and proximal ascending aorta not well visualized. CONCLUSIONS Normal LV systolic function. Moderate concentric left ventricular hypertrophy Previewed by: Dr. Maurice Mock MD (Electronically Signed) Final Date: 08 February 2024 18:18
== END | disposition home or self-care (01) ==
LOC: RADECHMAIN 13:36
PROVIDERS: ATTEND Internal Medicine Hematology & Oncology
DX: Z01.818 Encounter for other preprocedural examination (principal); I51.7 Cardiomegaly
CPT/HCPCS: 93306

== ENCOUNTER 2024-02-18 12:16 | Observation (INO) | payer MEDICARE ==
[2024-02-18] MEDS: LACTATED RINGERS 1,000 ML IV SCH (12:52)
[2024-02-18] MEDS ORDERED: ONDANSETRON 4 MG/2 ML VIAL ONE (13:00)
[2024-02-18] MEDS: ONDANSETRON 4 MG/2 ML VIAL IVP ONE (13:01)
[2024-02-18] MEDS: MIDAZOLAM 2 MG/2 ML VIAL IVP ONE (13:02)
[2024-02-18] MEDS ORDERED: LIDOCAINE 1% INJ 10MG/ML (20 ML MDV) ONE (13:04)
[2024-02-18] MEDS ORDERED: ceFAZolin 1 GM/50 ML BAG (PMX) ONE (13:04)
[2024-02-18] MEDS ORDERED: PROPOFOL 10 MG/ML 20 ML VIAL IV ONE (13:04)
--- NOTE | 2024-02-18 13:51 | P.GSHP ---
History of Present Illness H&P Date: 02/18/24 Chief Complaint: Esophageal cancer 68-year-old female recently diagnosed with esophageal cancer. Patient undergoing neoadjuvant therapy. Patient with progressive dysphagia. Here today for PEG tube placement. Past Medical History Past Medical History: Cancer, COPD, GERD/Reflux, Hyperlipidemia, Hypertension, Osteoarthritis (OA), Pneumonia, Thyroid Disorder Additional Past Medical History / Comment(s): Currently receiving chemo for cancer reoccurence - mass inesophagus and liver. OVARIAN CANCER DX 02/2015, LAST CHEMO Sep. IBS, CHRONIC BACK PAIN, HX OF BRONCHITIS. History of Any Multi-Drug Resistant Organisms: None Reported Past Surgical History: Cholecystectomy, Hysterectomy, Joint Replacement, Orthopedic Surgery, Tubal Ligation Additional Past Surgical History / Comment(s): PORT-A-CATH RIGHT CHEST with later removal, COLONOSCOPY, EXCISION OF LIPOMA FROM ABDOMINAL WALL, LEFT FEMUR SURGERY X2, knee replacement 03/2021, EGD and [id number] placement 01/29/24. Past Anesthesia/Blood Transfusion Reactions: No Reported Reaction Additional Past Anesthesia/Blood Transfusion Reaction / Comment(s): NO COMPLICATIONS WITH BLOOD TRANSFUSION. Smoking Status: Former smoker - Past Family History Mother Family Medical History: Cancer Additional Family Medical History / Comment(s): SQUAMOUS CELL CA-NECK. Father History Unknown: Yes Medications and Allergies Home Medications Medication Instructions Recorded Confirmed Type Levothyroxine Sodium [Synthroid] 88 mcg PO DAILY 06/30/15 02/14/24 History Omeprazole 20 mg PO DAILY 06/30/15 02/14/24 History ALPRAZolam [Xanax] 0.25 mg PO BID PRN 07/31/17 02/14/24 History Ipratropium-Albuterol Nebulize 3 ml INHALATION BID 08/03/17 02/14/24 History [Duoneb 0.5 mg-3 mg/3 ml Soln] Pravastatin Sodium 80 mg PO HS 08/03/20 02/14/24 History Furosemide [Lasix] 40 mg PO DAILY 12/06/21 02/14/24 History Potassium Chloride ER [K-Dur 10] 10 meq PO DAILY 12/06/21 02/14/24 History Losartan Potassium [Cozaar] 100 mg PO DAILY 09/13/22 02/14/24 History Fluticasone Propion/Salmeterol 2 puff INHALATION BID 01/24/24 02/14/24 History [Advair Hfa 230-21 Mcg Inhaler] HYDROcodone/APAP 7.5-325MG [[place] 1 tab PO DIRECTED PRN 01/24/24 02/14/24 History 7.5-325] Ibuprofen [Motrin] 800 mg PO DIRECTED PRN 01/24/24 02/14/24 History Unk Vitamin D3 1 tab PO DAILY 01/24/24 02/14/24 History Ondansetron [Zofran] 1 - 2 tab PO QID PRN 02/12/24 02/14/24 History Allergies Allergy/AdvReac Type Severity Reaction Status Date / Time amoxicillin Allergy Rash/Hives Verified 02/14/24 09:59 Surgical - Exam Vital Signs Temp Pulse Resp BP Pulse Ox 97.4 F L 106 H 16 110/74 98 02/18/24 12:37 02/18/24 12:37 02/18/24 12:37 02/18/24 12:37 02/18/24 12:37 Physical exam: General: Well-developed, well-nourished HEENT: Normocephalic, sclerae nonicteric Abdomen: Nontender, nondistended Extremities: No edema Neuro: Alert and oriented Assessment and Plan Plan: 68-year-old female with esophageal cancer. Will proceed with EGD and PEG tube placement at this time.
[2024-02-18] MEDS ORDERED: NALOXONE 0.4 MG/ML 1 ML VIAL IV PRN (13:52)
[2024-02-18] MEDS: HYDROmorphone 0.5 MG/0.5 ML SYRINGE IVP ONE (13:52)
[2024-02-18] MEDS ORDERED: HYDROmorphone 1 MG/ML 1 ML SYRINGE IVP PRN (13:52)
--- NOTE | 2024-02-18 13:52 | P.OP ---
Date of Procedure: 02/18/24 Procedure(s) Performed: PREOPERATIVE DIAGNOSIS: Malnutrition, dysphagia, esophageal cancer POSTOPERATIVE DIAGNOSIS: Same PROCEDURE: EGD with PEG tube placement SURGEON: Krishna EBL: Minimal ANESTHESIA: Sedation COMPLICATIONS: None OPERATIVE PROCEDURE: The patient was placed in the supine position on the endos copy table. The patient was sedated per anesthesia that time. The Olympus gastroscope was inserted into the oropharynx and passed under direct visualization to the region of the duodenum. No obstruction was seen. The pylorus was widely patent. The stomach was carefully inspected. The stomach was fully insufflated with air. The abdominal wall was inspected. The light was seen shining through the abdominal wall in the left upper quadrant. This site was chosen for PEG tube placement. The area was prepped in the usual sterile fashion. This area was then localized with lidocaine. No air was evident when aspirating while advancing the localizing needle into the stomach until the stomach was reached. A small vertical incision was made using the scalpel. The Seldinger needle was advanced into the lumen of the stomach the wire was advanced. The wire was grasped with an endoscopic snare. The wire was pulled through the oropharynx. The catheter was then threaded over the guidewir e and the guidewire and catheter were pulled anteriorly until the hub of the PEG tube catheter was seated against the anterior wall the stomach. The circular bolster was applied and tightened down. The endoscope was then readvanced into the stomach. There was no evidence of any bleeding and there was appropriate tightness on the bolster. The catheter was cut appropriately. The dual port feeding adapter was applied. The patient's esophageal malignancy persisted although seems slightly smaller today than on our recent study. Small amount of bleeding from the passage of the scope and the catheter was noted. DISPOSITION: Stable to recovery room
[2024-02-18] MEDS: KETOROLAC 15 MG/ML 1 ML VIAL IVP SCH (14:38)
[2024-02-18] MEDS: HEPARIN SODIUM,PORCINE 5,000 UNIT/ML 1 ML VIAL SQ SCH (16:46)
[2024-02-18] MEDS: LACTATED RINGERS 1,000 ML IV ONE (16:46)
[2024-02-18] MEDS: ACETAMINOPHEN IV (For NPO) 1,000 MG in EMPTY BAG 1 BAG IVPB SCH (17:46)
[2024-02-18] MEDS: HYDROmorphone 0.5 MG/0.5 ML SYRINGE IVP PRN (20:07)
[2024-02-18] MEDS: PRAVASTATIN SODIUM 80 MG TAB PO SCH (20:49)
[2024-02-18] MEDS: ALPRAZolam 0.25 MG TAB PO PRN (20:49)
[2024-02-18] MEDS: SYMBICORT 160-4.5 MCG INHALER INHALATION SCH (21:51)
[2024-02-18] MEDS: IPRATROPIUM-ALBUTEROL 3 ML NEB INHALATION SCH (21:52)
[2024-02-19] MEDS: ONDANSETRON 4 MG/2 ML VIAL IVP PRN (00:05)
[2024-02-19] MEDS: LEVOTHYROXINE 88 MCG TAB PO SCH (05:52)
[2024-02-19] MEDS: PANTOPRAZOLE 40 MG/10 ML VIAL IV SCH (08:29)
[2024-02-19] MEDS: PANTOPRAZOLE 40 MG TABLET PO SCH (08:30)
[2024-02-19] MEDS: POTASSIUM CHLORIDE ER 10 MEQ TAB.ER.PRT PO SCH (08:30)
[2024-02-19] MEDS: FUROSEMIDE 40 MG TAB PO SCH (08:30)
[2024-02-19] MEDS: LOSARTAN 50 MG TAB PO SCH (08:31)
[2024-02-19 08:44] VITALS: PULSE 67
[2024-02-19 08:46] VITALS: BP 146/84; RESP 16; TEMP 97.6
[2024-02-19] MEDS ORDERED: VITAMIN D3 PO SCH (09:00)
--- NOTE | 2024-02-19 14:50 | P.CONS ---
History of Present Illness - Reason for Consult Consult date: 02/19/24 Medical management Requesting physician: Reginaldo Keller - Chief Complaint Progressive dysphagia - History of Present Illness This is a 68-year-old female with past medical history significant for ovarian cancer-status postchemotherapy 2014, COPD, gastroesophageal reflux disease, hypertension, hyperlipidemia, hypothyroidism, recently diagnosed with esophageal cancer -currently receiving chemo, with progressive dysphagia, status post PEG tube placement. Tolerated procedure well. Follows with Dr. Patterson-oncology. Review of Systems ROS Statement: Those systems with pertinent positive or pertinent negative responses have been documented in the HPI. ROS Other: All systems not noted in ROS Statement are negative. Past Medical History Past Medical History: Cancer, COPD, GERD/Reflux, Hyperlipidemia, Hypertension, Osteoarthritis (OA), Pneumonia, Thyroid Disorder Additional Past Medical History / Comment(s): Currently receiving chemo for cancer reoccurence - mass inesophagus and liver. OVARIAN CANCER DX 02/2015, LAST CHEMO Sep. IBS, CHRONIC BACK PAIN, HX OF BRONCHITIS. History of Any Multi-Drug Resistant Organisms: None Reported Past Surgical History: Cholecystectomy, Hysterectomy, Joint Replacement, Orthopedic Surgery, Tubal Ligation Additional Past Surgical History / Comment(s): PORT-A-CATH RIGHT CHEST with later removal, COLONOSCOPY, EXCISION OF LIPOMA FROM ABDOMINAL WALL, LEFT FEMUR SURGERY X2, knee replacement 03/2021, EGD and [id number] placement 01/29/24. Past Anesthesia/Blood Transfusion Reactions: No Reported Reaction Additional Past Anesthesia/Blood Transfusion Reaction / Comm: NO COMPLICATIONS WITH BLOOD TRANSFUSION. Smoking Status: Former smoker - Past Family History Mother Family Medical History: Cancer Additional Family Medical History / Comment(s): SQUAMOUS CELL CA-NECK. Father History Unknown: Yes Medications and Allergies Home Medications Medication Instructions Recorded Confirmed Type Levothyroxine Sodium [Synthroid] 88 mcg PO 0600 06/30/15 02/19/24 History Omeprazole 20 mg PO DAILY 06/30/15 02/18/24 History ALPRAZolam [Xanax] 0.25 mg PO BID PRN 07/31/17 02/18/24 History Ipratropium-Albuterol Nebulize 3 ml INHALATION 0700,1300 08/03/17 02/18/24 History [Duoneb 0.5 mg-3 mg/3 ml Soln] Pravastatin Sodium 80 mg PO HS 08/03/20 02/18/24 History Furosemide [Lasix] 40 mg PO DAILY 12/06/21 02/18/24 History Potassium Chloride ER [K-Dur 10] 10 meq PO DAILY 12/06/21 02/18/24 History Losartan Potassium [Cozaar] 100 mg PO DAILY 09/13/22 02/18/24 History Fluticasone Propion/Salmeterol 2 puff INHALATION 0700,1300 01/24/24 02/18/24 History [Advair Hfa 230-21 Mcg Inhaler] HYDROcodone/APAP 7.5-325MG [[place] 1 tab PO DIRECTED PRN 01/24/24 02/14/24 History 7.5-325] Ibuprofen [Motrin] 800 mg PO DIRECTED PRN 01/24/24 02/14/24 History Unk Vitamin D3 1 tab PO DAILY 01/24/24 02/14/24 History Ondansetron [Zofran] 1 - 2 tab PO QID PRN 02/12/24 02/18/24 History Allergies Allergy/AdvReac Type Severity Reaction Status Date / Time amoxicillin Allergy Rash/Hives Verified 02/14/24 09:59 Physical Exam Vitals: Vital Signs Temp Pulse Pulse Resp BP Pulse Ox 02/19/24 08:21 72 02/19/24 08:07 68 02/19/24 07:55 97.6 F 67 16 146/84 98 02/19/24 07:50 60 17 151/78 97 02/19/24 02:00 98.9 F 76 16 150/73 98 02/18/24 20:00 98.8 F 62 16 121/62 96 02/18/24 15:49 67 16 97/63 95 02/18/24 14:51 70 16 110/74 100 02/18/24 14:33 75 16 108/75 99 02/18/24 14:19 72 14 105/67 100 02/18/24 14:04 74 16 114/77 100 02/18/24 13:49 70 16 113/76 98 02/18/24 13:34 85 16 112/74 98 Intake and Output 02/18/24 02/19/24 02/19/24 22:59 06:59 14:59 Intake Total 370 Balance 370 Intake: Intake, IV Titration 250 Amount Lactated Ringers 1,000 ml 250 @ 125 mls/hr IV .Q8H ONE Rx#:[id number] Oral 120 Other: Voiding Method Toilet # Voids 3 Weight 73.8 kg PHYSICAL EXAM: VITAL SIGNS: As above GENERAL: Alert and oriented x 3, sitting up in bed, no acute distress HEENT: Normocephalic conjunctivae normal. NECK: Supple, no JVD. CARDIOVASCULAR: S1, S2 regular. No murmur RESPIRATION: Unlabored, equal air entry, essentially clear to auscultation with bilateral bases diminished. ABDOMEN: Soft, status post PEG tube placement, positive bowel sounds LEGS: No edema. no swelling NERVOUS SYSTEM: Cranial N 2-12 grossly normal. Moves all 4 limbs. No focal deficits. Strength and sensation grossly intact.. Skin: Warm and dry, no rash Assessment and Plan Assessment: Esophageal cancer with progressive dysphagia, status post EGD with PEG tube placement History of ovarian cancer IBS Gastroesophageal reflux disease Osteoarthritis Hypertension Hyperlipidemia Former nicotine dependence Plan: Continue on current medication regimen ,monitoring and symptomatic treatment. General surgery has given permission to proceed with using the PEG tube for medications and tube feeds. Dietitian has met with patient this morning.Initiate tube feeds as ordered. Medically cleared for discharge pending patient tolerates tube feeds. Recommend patient stay overnight, advance tube feeding , ensure patient tolerates .Patient does not want to spend the night, requesting discharge home. Discharge planning in progress as per general surgery. Thank you for the consult. The impression and plan of care has been dictated as directed. : I performed a history and examination of this patient, discussed the same with the dictator. I agree with the dictator's note ,documented as a scribe. Any additional findings or plans will be noted.
[2024-02-19] MEDS: HYDROcodone/APAP 7.5-325MG 1 EACH TAB PEG/G-TUBE PRN (15:01)
[2024-02-19 15:29] VITALS: BMI 28.4
--- NOTE | 2024-02-19 15:56 | P.DS ---
Providers Date of admission: 02/19/24 11:12 Expected date of discharge: 02/19/24 Attending physician: Reginaldo Keller Consults: 02/18/24 13:52 Consult Physician Routine Consulting Provider: Caleb Fisher Jr Consult Reason/Comments: Medical management Do you want consulting provider notified?: Yes Primary care physician: Caleb Fisher [facility] Course: Discharge diagnosis 1. Esophageal cancer 2. Dysphagia 3. Protein calorie malnutrition Hospital course This is a 68-year-old female with esophageal cancer. She is status post EGD with PEG tube placement. Tube feeds started today. Tube feed recommendations per dietitian. Patient can be discharged if tolerating tube feeds. Patient's pain is controlled. She is afebrile. She is stable for discharge. PEG tube site clean dry and intact. Physician Eyeglass Lens Grinder note has been reviewed by physician. Signing provider agrees with the documented findings, assessment, and plan of care. I have personally seen and examined the patient, reviewed the CLINICAL PHYSICIAN ASSISTANT /PAs history, exam and MDM and agree with the assessment and plan as written. Based on total visit time, I have performed more than 50% of the visit. As above: Patient doing well today. Pain is well-controlled. She would like to go home. May discharge. Will discuss further with outpatient home care regarding initiation of feeds. Patient Condition at Discharge: Stable Plan - Discharge Summary New Discharge Prescriptions: Continue Omeprazole 20 mg PO DAILY Levothyroxine Sodium [Synthroid] 88 mcg PO 0600 ALPRAZolam [Xanax] 0.25 mg PO BID PRN PRN Reason: Anxiety Ipratropium-Albuterol Nebulize [Duoneb 0.5 mg-3 mg/3 ml Soln] 3 ml INHALATION 0700,1300 Pravastatin Sodium 80 mg PO HS Fluticasone Propion/Salmeterol [Advair Hfa 230-21 Mcg Inhaler] 2 puff INHALATION 0700,1300 Ibuprofen [Motrin] 800 mg PO DIRECTED PRN PRN Reason: Pain Ondansetron [Zofran] 1 - 2 tab PO QID PRN PRN Reason: Nausea Potassium Chloride ER [K-Dur 10] 10 meq PO DAILY Furosemide [Lasix] 40 mg PO DAILY Losartan Potassium [Cozaar] 100 mg PO DAILY HYDROcodone/APAP 7.5-325MG [[place] 7.5-325] 1 tab PO DIRECTED PRN PRN Reason: Pain Unk Vitamin D3 1 tab PO DAILY Discharge Medication List Levothyroxine Sodium [Synthroid] 88 mcg PO 0600 06/30/15 [History] Omeprazole 20 mg PO DAILY 06/30/15 [History] ALPRAZolam [Xanax] 0.25 mg PO BID PRN 07/31/17 [History] Ipratropium-Albuterol Nebulize [Duoneb 0.5 mg-3 mg/3 ml Soln] 3 ml INHALATION 0700,1300 08/03/17 [History] Pravastatin Sodium 80 mg PO HS 08/03/20 [History] Furosemide [Lasix] 40 mg PO DAILY 12/06/21 [History] Potassium Chloride ER [K-Dur 10] 10 meq PO DAILY 12/06/21 [History] Losartan Potassium [Cozaar] 100 mg PO DAILY 09/13/22 [History] Fluticasone Propion/Salmeterol [Advair Hfa 230-21 Mcg Inhaler] 2 puff INHALATION 0700,1300 01/24/24 [History] HYDROcodone/APAP 7.5-325MG [[place] 7.5-325] 1 tab PO DIRECTED PRN 01/24/24 [History] Ibuprofen [Motrin] 800 mg PO DIRECTED PRN 01/24/24 [History] Unk Vitamin D3 1 tab PO DAILY 01/24/24 [History] Ondansetron [Zofran] 1 - 2 tab PO QID PRN 02/12/24 [History] Follow up Appointment(s)/Referral(s): Reginaldo Keller MD [Medical Doctor] - 02/26/24 2:40 pm Caleb Fisher Jr, DO [Primary Care Provider] - 02/22/24 8:45 am [facility] Visiting Nurse, [NON-STAFF] - 1 Week Patient Instructions/Handouts: How to Use and Care for Your PEG Tube (DC), Upper Endoscopy (DC), PEG Tube Insertion (DC) Discharge Disposition: HOME WITH HOME HEALTH SERVICES
== END 2024-02-19 16:30 | disposition home health service (06) ==
LOC: ORWHC2ENDO 12:16 → 5NMEDONC 13:22 → ORWHC2ENDO 02-19 11:12
PROVIDERS: ADMIT Surgery; ATTEND Surgery
DX: R13.10 Dysphagia, unspecified (principal); C15.9 Malignant neoplasm of esophagus, unspecified; J44.9 Chronic obstructive pulmonary disease, unspecified; K21.9 Gastro-esophageal reflux disease without esophagitis; I10 Essential (primary) hypertension; E78.5 Hyperlipidemia, unspecified; E03.9 Hypothyroidism, unspecified; G89.29 Other chronic pain; M54.9 Dorsalgia, unspecified; K58.9 Irritable bowel syndrome, unspecified; M19.90 Unspecified osteoarthritis, unspecified site; E46 Unspecified protein-calorie malnutrition; Z68.28 Body mass index [BMI] 28.0-28.9, adult; Z85.43 Personal history of malignant neoplasm of ovary; Z87.891 Personal history of nicotine dependence; Z92.21 Personal history of antineoplastic chemotherapy; Z79.890 Hormone replacement therapy; Z79.899 Other long term (current) drug therapy; Z88.0 Allergy status to penicillin
CPT/HCPCS: 96376 ×2; 96361 ×2; 96365; 96366; 96372 ×2; 96375 ×2; 94640; 43246; G0378; J2250; J1644 ×2; J2405 ×2; J2001; J0690; J0131; J1885 ×2; J2704; C9113; J1170 ×2; B4087

== ENCOUNTER 2024-03-28 16:14 | Inpatient (IN) | payer MEDICARE ==
--- NOTE | 2024-03-28 17:22 | ED ---
General Adult HPI - General Chief complaint: Extremity Injury, Lower Stated complaint: infection Time Seen by Provider: 03/28/24 17:02 Source: patient, RN notes reviewed Mode of arrival: ambulatory Limitations: no limitations - History of Present Illness Initial comments: Patient is a 68-year-old female presenting to the emergency department with concern for infection of her right second toe. Patient states symptoms have been occurring over the past couple of weeks. Patient is having increased swelling and now swelling of the foot. Patient is having drainage. 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 Patient does have history of esophageal cancer and is on chemotherapy for this. Patient recently had low white blood cell count. - Related Data Home Medications Medication Instructions Recorded Confirmed Levothyroxine Sodium [Synthroid] 88 mcg PO 0600 06/30/15 03/21/24 Omeprazole 20 mg PO DAILY 06/30/15 03/21/24 ALPRAZolam [Xanax] 0.25 mg PO BID PRN 07/31/17 03/21/24 Ipratropium-Albuterol Nebulize 3 ml INHALATION 0700,1300 08/03/17 03/21/24 [Duoneb 0.5 mg-3 mg/3 ml Soln] Pravastatin Sodium 80 mg PO HS 08/03/20 03/21/24 Furosemide [Lasix] 40 mg PO DAILY 12/06/21 03/21/24 Potassium Chloride ER [K-Dur 10] 10 meq PO DAILY 12/06/21 03/21/24 Losartan Potassium [Cozaar] 50 mg PO DAILY 09/13/22 03/21/24 Fluticasone Propion/Salmeterol 2 puff INHALATION 0700,1300 01/24/24 03/21/24 [Advair Hfa 230-21 Mcg Inhaler] HYDROcodone/APAP 7.5-325MG [[place] 1 tab PO DIRECTED PRN 01/24/24 03/21/24 7.5-325] Ibuprofen [Motrin] 800 mg PO DIRECTED PRN 01/24/24 03/21/24 Unk Vitamin D3 1 tab PO DAILY 01/24/24 03/21/24 Ondansetron [Zofran] 1 - 2 tab PO QID PRN 02/12/24 03/21/24 Allergies Allergy/AdvReac Type Severity Reaction Status Date / Time amoxicillin Allergy Rash/Hives Verified 03/28/24 16:32 Review of Systems ROS Statement: Those systems with pertinent positive or pertinent negative responses have been documented in the HPI. ROS Other: All systems not noted in ROS Statement are negative. Constitutional: Denies: fever Eyes: Denies: eye pain ENT: Denies: ear pain Respiratory: Denies: dyspnea Cardiovascular: Denies: chest pain Musculoskeletal: Reports: as per HPI Skin: Reports: as per HPI Past Medical History Past Medical History: Cancer, COPD, GERD/Reflux, Hyperlipidemia, Hypertension, Osteoarthritis (OA), Pneumonia, Thyroid Disorder Additional Past Medical History / Comment(s): Currently receiving chemo for cancer reoccurence - mass inesophagus and liver. OVARIAN CANCER DX 02/2015, LAST CHEMO Sep. IBS, CHRONIC BACK PAIN, HX OF BRONCHITIS. History of Any Multi-Drug Resistant Organisms: None Reported Past Surgical History: Cholecystectomy, Hysterectomy, Joint Replacement, Orthopedic Surgery, Tubal Ligation Additional Past Surgical History / Comment(s): PORT-A-CATH RIGHT CHEST with later removal, COLONOSCOPY, EXCISION OF LIPOMA FROM ABDOMINAL WALL, LEFT FEMUR SURGERY X2, knee replacement 03/2021, EGD and [id number] placement 01/29/24. Past Anesthesia/Blood Transfusion Reactions: No Reported Reaction Additional Past Anesthesia/Blood Transfusion Reaction / Comment(s): NO COMPLICATIONS WITH BLOOD TRANSFUSION. Past Psychological History: Anxiety Smoking Status: Former smoker - Past Family History Mother Family Medical History: Cancer Additional Family Medical History / Comment(s): SQUAMOUS CELL CA-NECK. Father History Unknown: Yes General Exam Limitations: no limitations General appearance: alert, in no apparent distress Head exam: Present: normocephalic Eye exam: Present: normal appearance Neck exam: Present: normal inspection Respiratory exam: Present: normal lung sounds bilaterally Cardiovascular Exam: Present: regular rate, normal rhythm GI/Abdominal exam: Present: soft. Absent: tenderness Extremities exam: Present: other (Right second toe with moderate to severe swelling with purulent discharge. There is erythema extending to the proximal foot as well as edema) Neurological exam: Present: alert Psychiatric exam: Present: normal affect, normal mood Skin exam: Present: erythema Course Vital Signs 03/28/24 16:29 Temperature 98.6 F Pulse Rate 86 Respiratory 18 Rate Blood Pressure 114/77 O2 Sat by Pulse 95 Oximetry EKG Findings - EKG Results: EKG: interpreted by ERMD, sinus rhythm, normal axis, normal QRS, normal ST/T Medical Decision Making - Medical Decision Making Was pt. sent in by a medical professional or institution (LUPILLO Montiel, DIRECTOR OF RECREATION THERAPY, urgent care, hospital, or halfway...) When possible be specific @ -Patient was sent in by Dr. James Did you speak to anyone other than the patient for history (EMS, parent, family, police, friend...)? What history was obtained from this source @ -No Did you review nursing and triage notes (agree or disagree)? Why? @ -I reviewed and agree with nursing and triage notes Were old charts reviewed (outside hosp., previous admission, EMS record, old EKG, old radiological studies, urgent care reports/EKG's, halfway records)? Report findings @ -No old charts were reviewed Differential Diagnosis (chest pain, altered mental status, abdominal pain women, abdominal pain men, vaginal bleeding, weakness, fever, dyspnea, syncope, headache, dizziness, GI bleed, back pain, seizure, CVA, palpatations, mental health, musculoskeletal)? @ -Differential Fever: Pneumonia, viral URI, endocarditis, myocarditis, pericarditis, otitis, sinusitis, peritonsillar Abscess, retropharyngeal Abscess, epiglottitis, peritonitis, appendicitis, Andreia cystitis, diverticulitis, hepatitis, colitis, UTI, PID, TOA, pyelonephritis, prostatitis, epididymitis, meningitis, encephalitis, pulmonary embolism, CVA, thyroid storm, pancreatitis, adrenal crisis, cavernous sinus thrombosis, this is not meant to be an all-inclusive list. EKG interpreted by me (3pts min.). @ -As above X-rays interpreted by me (1pt min.). @ -X-ray right foot shows no acute process CT interpreted by me (1pt min.). @ -None done U/S interpreted by me (1pt. min.). @ -None done What testing was considered but not performed or refused? (CT, X-rays, U/S, labs)? Why? @ -None What meds were considered but not given or refused? Why? @ -None Did you discuss the management of the patient with other professionals (professionals i.e. LUPILLO Montiel, DIRECTOR OF RECREATION THERAPY, lab, RT, psych nurse, social security specialist, claim benefit specialist, teacher, natural resource officer, onsite case manager)? Give summary @ -Case discussed with Dr. Moore who will admit his patient with addition of vancomycin as well as counseled Dr. Ames Was smoking cessation discussed for >3mins.? @ -No Was critical care preformed (if so, how long)? @ -No Were there social determinants of health that impacted care today? How? (Homelessness, low income, unemployed, alcoholism, drug addiction, transportation, low edu. Level, literacy, decrease access to med. care, half-way, rehab)? @ -No Was there de-escalation of care discussed even if they declined (Discuss DNR or withdrawal of care, Hospice)? DNR status @ -No What co-morbidities impacted this encounter? (DM, HTN, Smoking, COPD, CAD, Cancer, CVA, ARF, Chemo, Hep., AIDS, mental health diagnosis, sleep apnea, morbid obesity)? @ -Underlying esophageal cancer on chemotherapy Was patient admitted / discharged? Hospital course, mention meds given and route, prescriptions, significant lab abnormalities, going to OR and other pertinent info. @ -Patient and family are updated on plan. Patient will be admitted with infectious disease consult. Admission orders written Undiagnosed new problem with uncertain prognosis? @ -No Drug Therapy requiring intensive monitoring for toxicity (Heparin, Nitro, Insulin, Cardizem)? @ -No Were any procedures done? @ -No Diagnosis/symptom? @ -Cellulitis right great toe Acute, or Chronic, or Acute on Chronic? @ -Acute Uncomplicated (without systemic symptoms) or Complicated (systemic symptoms)? @ -Default Side effects of treatment? @ -No Exacerbation, Progression, or Severe Exacerbation? @ -No Poses a threat to life or bodily function? How? (Chest pain, USA, IA, pneumonia, PE, COPD, DKA, ARF, appy, cholecystitis, CVA, Diverticulitis, Homicidal, Suicidal, threat to staff... and all critical care pts) @ -No - Lab Data Result diagrams: 03/28/24 17:40 03/28/24 17:40 Lab Results 03/28/24 03/28/24 03/28/24 Range/Units 17:40 17:40 17:40 WBC 17.6 H (3.8-10.6) k/uL RBC 3.32 L (3.80-5.40) m/uL Hgb 10.5 L (11.4-16.0) gm/dL Hct 31.7 L (34.0-46.0) % MCV 95.6 (80.0-100.0) fL MCH 31.5 (25.0-35.0) pg MCHC 33.0 (31.0-37.0) g/dL RDW 15.6 H (11.5-15.5) % Plt Count 137 L D (150-450) k/uL MPV 8.0 Neutrophils % 78 % Lymphocytes % 9 % Monocytes % 7 % Eosinophils % 3 % Basophils % 0 % Neutrophils # 13.8 H (1.3-7.7) k/uL Lymphocytes # 1.6 (1.0-4.8) k/uL Monocytes # 1.3 H (0-1.0) k/uL Eosinophils # 0.4 (0-0.7) k/uL Basophils # 0.1 (0-0.2) k/uL PT 9.8 L (10.0-12.5) sec INR 0.9 (<1.2) APTT 23.8 (22.0-30.0) sec Sodium 137 (137-145) mmol/L Potassium 4.3 (3.5-5.1) mmol/L Chloride 103 (98-107) mmol/L Carbon Dioxide 26 (22-30) mmol/L Anion Gap 8 mmol/L BUN 19 H (7-17) mg/dL Creatinine 0.62 (0.52-1.04) mg/dL Est GFR (CKD-EPI)AfAm >90 (>60 ml/min/1.73 sqM) Est GFR (CKD-EPI)NonAf >90 (>60 ml/min/1.73 sqM) Glucose 114 H (74-99) mg/dL Plasma Lactic Acid Freedom (0.7-2.0) mmol/L Calcium 9.1 (8.4-10.2) mg/dL Total Bilirubin 0.3 (0.2-1.3) mg/dL AST 47 H (14-36) U/L ALT 28 (4-34) U/L Alkaline Phosphatase 209 H (38-126) U/L Total Protein 6.5 (6.3-8.2) g/dL Albumin 3.4 L (3.5-5.0) g/dL 03/28/24 Range/Units 17:40 WBC (3.8-10.6) k/uL RBC (3.80-5.40) m/uL Hgb (11.4-16.0) gm/dL Hct (34.0-46.0) % MCV (80.0-100.0) fL MCH (25.0-35.0) pg MCHC (31.0-37.0) g/dL RDW (11.5-15.5) % Plt Count (150-450) k/uL MPV Neutrophils % % Lymphocytes % % Monocytes % % Eosinophils % % Basophils % % Neutrophils # (1.3-7.7) k/uL Lymphocytes # (1.0-4.8) k/uL Monocytes # (0-1.0) k/uL Eosinophils # (0-0.7) k/uL Basophils # (0-0.2) k/uL PT (10.0-12.5) sec INR (<1.2) APTT (22.0-30.0) sec Sodium (137-145) mmol/L Potassium (3.5-5.1) mmol/L Chloride (98-107) mmol/L Carbon Dioxide (22-30) mmol/L Anion Gap mmol/L BUN (7-17) mg/dL Creatinine (0.52-1.04) mg/dL Est GFR (CKD-EPI)AfAm (>60 ml/min/1.73 sqM) Est GFR (CKD-EPI)NonAf (>60 ml/min/1.73 sqM) Glucose (74-99) mg/dL Plasma Lactic Acid Freedom 0.7 (0.7-2.0) mmol/L Calcium (8.4-10.2) mg/dL Total Bilirubin (0.2-1.3) mg/dL AST (14-36) U/L ALT (4-34) U/L Alkaline Phosphatase (38-126) U/L Total Protein (6.3-8.2) g/dL Albumin (3.5-5.0) g/dL Disposition Clinical Impression: Cellulitis of great toe, right Disposition: ADMITTED IP TO THIS HOSP Condition: Serious Is patient prescribed a controlled substance at d/c from ED?: No Referrals: Bernard James DPM [Primary Care Provider] - 1-2 days Time of Disposition: 18:16
--- NOTE | 2024-03-28 17:55 | XR ---
EXAMINATION TYPE: XR foot complete RT DATE OF EXAM: 03/28/2024 COMPARISON: None HISTORY: Toe infection TECHNIQUE: 3 view right foot FINDINGS: No acute fractures or dislocations evident. Degenerative change at the first metatarsophala ngeal joint space may be present. Some minimal narrowing of the proximal and distal interphalangeal j oint spaces of the digits may be present. Soft tissues are unremarkable. Plantar calcaneal heel spurs present. No cortical erosions are identified. Follow up exams can be performed as clinically indicated. IMPRESSION: 1. No acute osseous abnormality right foot
[2024-03-28 17:56] LABS: Basophils # (A) 0.1 k/uL (0-0.2); Basophils % (A) 0 %; Eosinophils # (A) 0.4 k/uL (0-0.7); Eosinophils % (A) 3 %; HCT 31.7 % (34.0-46.0); HGB 10.5 gm/dL (11.4-16.0); Lymphocytes # (A) 1.6 k/uL (1.0-4.8); Lymphocytes % (A) 9 %; MCH 31.5 pg (25.0-35.0); MCV 95.6 fL (80.0-100.0); Monocytes # (A) 1.3 k/uL (0-1.0); Monocytes % (A) 7 %; Neutrophils # (A) 13.8 k/uL (1.3-7.7); Neutrophils % (A) 78 %; RBC 3.32 m/uL (3.80-5.40); RDW 15.6 % (11.5-15.5); WBC 17.6 k/uL (3.8-10.6)
[2024-03-28 17:57] LABS: Platelet Count 137 k/uL (150-450)
[2024-03-28 18:03] LABS: ALT 28 U/L (4-34); AST 47 U/L (14-36); African American GFR (CKD) >90 (>60 ml/min/1.73 sqM); Albumin 3.4 g/dL (3.5-5.0); Alkaline Phosphatase 209 U/L (38-126); Anion Gap 8 mmol/L; Blood Urea Nitrogen 19 mg/dL (7-17); Calcium 9.1 mg/dL (8.4-10.2); Carbon Dioxide 26 mmol/L (22-30); Chloride 103 mmol/L (98-107); Glucose 114 mg/dL (74-99); Non-African American GFR(CKD) >90 (>60 ml/min/1.73 sqM); Potassium 4.3 mmol/L (3.5-5.1); Sodium 137 mmol/L (137-145); Total Bilirubin 0.3 mg/dL (0.2-1.3); Total Protein 6.5 g/dL (6.3-8.2)
[2024-03-28 18:08] LABS: INR 0.9 (<1.2); Partial Thromboplastin Time 23.8 sec (22.0-30.0); Prothrombin Time 9.8 sec (10.0-12.5)
[2024-03-28] MEDS ORDERED: VANCOMYCIN IV PER PHARMACY 1 EACH MISC MISCELLANE PRN (18:16)
[2024-03-28] MEDS ORDERED: NALOXONE 0.4 MG/ML 1 ML VIAL IV PRN (18:17)
[2024-03-28] MEDS ORDERED: ACETAMINOPHEN TAB 325 MG TAB PO PRN (18:17)
[2024-03-28] MEDS: HYDROmorphone 0.5 MG/0.5 ML SYRINGE IVP PRN (18:26)
[2024-03-28] MEDS: SODIUM CHLORIDE 0.9% 1,000 ML IV SCH (18:28)
[2024-03-28] MEDS: LEVOFLOXACIN 750MG-D5W PMX 750 MG in DEXTROSE/WATER 1 150ML.BAG IVPB SCH (18:30)
[2024-03-28] MEDS ORDERED: [UNRECOGNIZED DRUG - MIXTURE] PO PRN (18:53)
[2024-03-28] MEDS ORDERED: MAG HYDROX/AL HYDROX/SIMETH 30 ML, diphenhydrAMINE ELIXIR 75 MG, LIDOCAINE VISCOUS 2% 3... PO PRN (19:03)
[2024-03-28] MEDS: SYMBICORT 160-4.5 MCG INHALER INHALATION SCH (20:10)
[2024-03-28] MEDS: VANCOMYCIN 1,250 MG in SODIUM CHLORIDE 0.9% 250 ML IVPB ONE (20:15)
[2024-03-28] MEDS: FUROSEMIDE 20 MG TAB PO SCH (21:28)
[2024-03-28] MEDS: PRAVASTATIN SODIUM 80 MG TAB PO SCH (21:30)
[2024-03-28] MEDS: ALPRAZolam 0.25 MG TAB PO SCH (21:30)
[2024-03-28] MEDS: ONDANSETRON 4 MG/2 ML VIAL IVP PRN (21:49)
[2024-03-29] MEDS: HYDROmorphone 1 MG/ML 1 ML SYRINGE IVP PRN (00:13)
[2024-03-29] MEDS: DIPHENOX-ATROP 2.5-0.025 MG 1 EACH TAB PO SCH (00:16)
[2024-03-29] MEDS: VANCOMYCIN 1,250 MG in SODIUM CHLORIDE 0.9% 250 ML IVPB SCH (06:00)
[2024-03-29] MEDS: LEVOTHYROXINE 88 MCG TAB PO SCH (06:00)
[2024-03-29] MEDS: LOSARTAN 50 MG TAB PO SCH (07:38)
[2024-03-29] MEDS: PANTOPRAZOLE 40 MG TABLET PO SCH (07:39)
[2024-03-29] MEDS: CHOLECALCIFEROL 25 MCG (1000 IU) TABLET PO SCH (07:39)
[2024-03-29] MEDS: POTASSIUM CHLORIDE ER 10 MEQ TAB.ER.PRT PO SCH (07:41)
[2024-03-29 09:14] LABS: HCT 26.6 % (37.2-46.3); HGB 8.5 g/dL (12.0-15.0); MCH 31.3 pg (27.0-32.0); MCV 97.8 FL (80.0-97.0); Mean Platelet Volume 11.2 FL (9.5-12.2); NRBC Per 100 WBC 0.04 X 10*3/uL (0.00-0.01); Platelet Count 126 X 10*3/uL (140-440); RBC 2.72 X 10*6/uL (4.10-5.20); RDW 14.7 % (11.5-14.5); WBC 11.87 X 10*3/uL (4.50-10.00)
[2024-03-29 09:54] LABS: ALT 19 U/L (8-44); AST 34 U/L (13-35); Albumin 3.1 g/dL (3.8-4.9); Albumin/Globulin Ratio 1.35 Ratio (1.60-3.17); Alkaline Phosphatase 171 U/L (41-126); BUN/Creat Ratio 22.86 Ratio (12.00-20.00); Calcium 9.1 mg/dL (8.7-10.3); Carbon Dioxide 24.8 mmol/L (21.6-31.8); Chloride 103 mmol/L (96-109); Globulin 2.3 g/dL (1.6-3.3); Glucose 93 mg/dL (70-110); Potassium 3.8 mmol/L (3.5-5.5); Sodium 139 mmol/L (135-145); Total Bilirubin 0.2 mg/dL (0.3-1.2); Total Protein 5.4 g/dL (6.2-8.2)
[2024-03-29 10:23] LABS: Basophils # (A) 0.08 X 10*3/uL (0.00-0.10); Basophils % (A) 0.7 %; Eosinophils # (A) 0.32 X 10*3/uL (0.04-0.35); Eosinophils % (A) 2.7 %; Lymphocytes # (A) 1.35 X 10*3/uL (0.90-5.00); Lymphocytes % (A) 11.4 %; Monocytes # (A) 1.63 X 10*3/uL (0.20-1.00); Monocytes % (A) 13.7 %; Neutrophils # (A) 8.32 X 10*3/uL (1.80-7.70); Neutrophils % (A) 70.1 %; Toxic Granulation 2+
--- NOTE | 2024-03-29 11:33 | P.HPIM ---
History of Present Illness H&P Date: 03/29/24 Chief Complaint: cellulitis abscess right second 68-year-old female known to my practice, with a currently being under treatment for esophageal cancer which is her second primary, currently complaining of pain unable to ambulate or place weight on the right foot secondary to pain and swelling secondary to a wound on the right toe patient failed outpatient treatment was on Bactrim DS for approximately 2 weeks. Improved and after she stopped the antibiotic it became progressively worse and she presented to the emergency room Review of Systems Constitutional: Reports as per HPI, Reports fatigue, Reports weakness Ears, nose, mouth and throat: Reports as per HPI Cardiovascular: Reports as per HPI Respiratory: Reports as per HPI Gastrointestinal: Reports nausea (secondary to recent chemotherapies) Genitourinary: Reports as per HPI Menstruation: Reports postmenopausal Musculoskeletal: Reports shooting leg pain Integumentary: Reports foot/leg ulcers (second toe infection) Neurological: Reports as per HPI Psychiatric: Reports as per HPI Endocrine: Reports as per HPI Past Medical History Past Medical History: Cancer, COPD, GERD/Reflux, Hyperlipidemia, Hypertension, Osteoarthritis (OA), Pneumonia, Thyroid Disorder Additional Past Medical History / Comment(s): Currently receiving chemo for cancer reoccurence - mass inesophagus and liver. OVARIAN CANCER DX 02/2015, LAST CHEMO Sep. IBS, CHRONIC BACK PAIN, HX OF BRONCHITIS. History of Any Multi-Drug Resistant Organisms: None Reported Past Surgical History: Cholecystectomy, Hysterectomy, Joint Replacement, Orthopedic Surgery, Tubal Ligation Additional Past Surgical History / Comment(s): PORT-A-CATH RIGHT CHEST with later removal, COLONOSCOPY, EXCISION OF LIPOMA FROM ABDOMINAL WALL, LEFT FEMUR SURGERY X2, knee replacement 03/2021, EGD and [id number]-[id number] placement 01/29/24. Past Anesthesia/Blood Transfusion Reactions: No Reported Reaction Additional Past Anesthesia/Blood Transfusion Reaction / Comment(s): NO COMPLICATIONS WITH BLOOD TRANSFUSION. Past Psychological History: Anxiety Smoking Status: Former smoker Past Alcohol Use History: Occasional Additional Past Alcohol Use History / Comment(s): QUIT SMOKING 2004, STARTED IN 1984, SMOKED LESS THAN 1 PPD. DRINKS 3 PER WEEK, NO ALCOHOL IN THE LAST FEW WEEKS. Past Drug Use History: None Reported - Past Family History Mother Family Medical History: Cancer Additional Family Medical History / Comment(s): SQUAMOUS CELL CA-NECK. Father History Unknown: Yes Medications and Allergies Home Medications Medication Instructions Recorded Confirmed Type Levothyroxine Sodium [Synthroid] 88 mcg PO DAILY 06/30/15 03/28/24 History Omeprazole 20 mg PO DAILY 06/30/15 03/28/24 History ALPRAZolam [Xanax] 0.25 mg PO BID 07/31/17 03/28/24 History Pravastatin Sodium 80 mg PO HS 08/03/20 03/28/24 History Furosemide [Lasix] 20 mg PO BID 12/06/21 03/28/24 History Potassium Chloride ER [K-Dur 10] 10 meq PO DAILY 12/06/21 03/28/24 History Losartan Potassium [Cozaar] 100 mg PO DAILY 09/13/22 03/28/24 History Fluticasone Propion/Salmeterol 2 puff INHALATION RT-BID 01/24/24 03/28/24 History [Advair Hfa 230-21 Mcg Inhaler] Ondansetron [Zofran] 4 mg PO Q4H PRN 02/12/24 03/28/24 History Cholecalciferol (Vitamin D3) 50 mcg PO DAILY 03/28/24 03/28/24 History [Vitamin D3 (50 Mcg = 2000 Iu)] Diphenoxylate HCl/Atropine 1 tab PO QID 03/28/24 03/28/24 History [Lomotil 2.5-0.025 mg Tablet] HYDROcodone/APAP 10-325MG [[place] 1 tab PO Q4HR PRN 03/28/24 03/28/24 History 10-325] Lido2%/Mdryl/Maau586 5 ml PO QID PRN 03/28/24 03/28/24 History Allergies Allergy/AdvReac Type Severity Reaction Status Date / Time amoxicillin Allergy Rash/Hives Verified 03/28/24 18:38 Physical Exam Osteopathic Statement: *. No significant issues noted on an osteopathic structu ral exam other than those noted in the History and Physical/Consult. Vitals: Vital Signs Temp Pulse Pulse Resp BP BP Pulse Ox 03/29/24 07:19 98.0 F 86 18 128/80 99 03/29/24 01:51 98.2 F 82 18 105/65 97 03/28/24 21:15 97.5 F L 96 20 160/81 98 03/28/24 21:01 98.1 F 84 16 126/72 95 03/28/24 21:00 96 20 03/28/24 18:31 89 18 129/74 94 L 03/28/24 16:29 98.6 F 86 18 114/77 95 Intake and Output 03/28/24 03/29/24 03/29/24 22:59 06:59 14:59 Other: Voiding Method Toilet Toilet # Voids 1 1 Weight 73.028 kg General: [Patient awake, alert and oriented times 3. Patient in no acute distress.] HEENT: [PERRL. EOMI. No pharyngeal erythema or exudate.] Neck: [No adenopathy.] Cardiac: [Heart regular in rate and rhythm. No S3. No S4. No clicks, rubs. No murmur.] Lungs: [Clear to auscultation bilaterally.] Abdomen: [No mass. No organomegaly. Bowel sounds presnt and normoactive in all 4 quadrants.] Extremes: right second toe first joint inflamed and swollen the forefoot demonstrates edema with erythema : normal female genitalia Musculoskeletal: [No joint erythema, edema or tenderness.] Skin: [No rash.] Neurologic: [No lateralizing deficits. CN II - XII grossly intact.] Lymphatic: [No adenopathy.] Results CBC & Chem 7: 03/29/24 04:17 03/29/24 04:17 Labs: Abnormal Lab Results - Last 24 Hours (Table) 03/28/24 03/28/24 03/28/24 Range/Units 17:40 17:40 17:40 WBC 17.6 H (3.8-10.6) k/uL RBC 3.32 L (3.80-5.40) m/uL Hgb 10.5 L (11.4-16.0) gm/dL Hct 31.7 L (34.0-46.0) % MCV (80.0-97.0) FL RDW 15.6 H (11.5-15.5) % Plt Count 137 L D (150-450) k/uL Immature Gran # (0.00-0.04) X 10*3/uL Neutrophils # 13.8 H (1.3-7.7) k/uL Monocytes # 1.3 H (0-1.0) k/uL NRBC/100 WBC Diff (0.00-0.01) X 10*3/uL Toxic Granulation PT 9.8 L (10.0-12.5) sec BUN 19 H (7-17) mg/dL BUN/Creatinine Ratio (12.00-20.00) Ratio Glucose 114 H (74-99) mg/dL Total Bilirubin (0.3-1.2) mg/dL AST 47 H (14-36) U/L Alkaline Phosphatase 209 H (38-126) U/L Total Protein (6.2-8.2) g/dL Albumin 3.4 L (3.5-5.0) g/dL Albumin/Globulin Ratio (1.60-3.17) Ratio 03/29/24 03/29/24 Range/Units 04:17 04:17 WBC 11.87 H (3.8-10.6) k/uL RBC 2.72 L (3.80-5.40) m/uL Hgb 8.5 L (11.4-16.0) gm/dL Hct 26.6 L (34.0-46.0) % MCV 97.8 H (80.0-97.0) FL RDW 14.7 H (11.5-15.5) % Plt Count 126 L (150-450) k/uL Immature Gran # 0.17 H (0.00-0.04) X 10*3/uL Neutrophils # 8.32 H (1.3-7.7) k/uL Monocytes # 1.63 H (0-1.0) k/uL NRBC/100 WBC Diff 0.04 H (0.00-0.01) X 10*3/uL Toxic Granulation 2+ A PT (10.0-12.5) sec BUN (7-17) mg/dL BUN/Creatinine Ratio 22.86 H (12.00-20.00) Ratio Glucose (74-99) mg/dL Total Bilirubin 0.2 L (0.3-1.2) mg/dL AST (14-36) U/L Alkaline Phosphatase 171 H (38-126) U/L Total Protein 5.4 L (6.2-8.2) g/dL Albumin 3.1 L (3.5-5.0) g/dL Albumin/Globulin Ratio 1.35 L (1.60-3.17) Ratio Thrombosis Risk Factor Assmnt - Choose All That Apply Any of the Below Risk Factors Present?: No Each Factor Represents 1 point: Obesity (BMI >25) Other Risk Factors: Yes Each Risk Factor Represents 2 Points: Age 61-74 years, Malignancy Other congenital or acquired thrombophilia - If yes, enter type in comment: No Thrombosis Risk Factor Assessment Total Risk Factor Score: 5 Thrombosis Risk Factor Assessment Level: High Risk Assessment and Plan (1) Cellulitis of second toe, right Current Visit: Yes Status: Acute Code(s): L03.031 - CELLULITIS OF RIGHT TOE SNOMED Code(s): 60905085 Plan: patient has cellulitis of the right second toe Chemotherapy secondary to esophageal cancer Consults orthopedic surgery Currently consult think infectious disease Consulted heme on current Patient is hemodynamically stable IV antibiotics on board Time with Patient: Greater than 30
--- NOTE | 2024-03-29 22:35 | P.CONS ---
History of Present Illness - Reason for Consult Consult date: 03/29/24 - History of Present Illness Patient is a 68-year-old female with a past medical history significant for hypertension hyperlipidemia reflux and currently undergoing chemotherapy for esophageal cancer has been brought into the hospital concerning for right second toe pain and swelling and redness patient mention she may have hit it with the dresser few days ago initially started having some swelling and there was a pus point that she drained has been evaluated by primary care physician has been treated with the Bactrim DS did have some improvement initially however the patient did have worsening swelling and redness after completion of her antibiotic therapy patient was referred to podiatry and the patient was evaluated by Dr. James yesterday did have a deroofing of the area and some culture and the patient subsequently has been sent to the ER patient on presentation to the hospital was afebrile and no fever have been called subsequently patient did have a white count of 17.6 with a left shift creatinine 0.62 AST mildly elevated local culture values are currently pending patient did have a foot x-ray did not show any bony abnormality patient was started on Levaquin and vancomycin because of her amoxicillin allergy infectious disease was consulted for further management of antibiotic therapy patient did mention she has taken Keflex without any problem Past Medical History Past Medical History: Cancer, COPD, GERD/Reflux, Hyperlipidemia, Hypertension, O steoarthritis (OA), Pneumonia, Thyroid Disorder Additional Past Medical History / Comment(s): Currently receiving chemo for cancer reoccurence - mass inesophagus and liver. OVARIAN CANCER DX 02/2015, LAST CHEMO Sep. IBS, CHRONIC BACK PAIN, HX OF BRONCHITIS. History of Any Multi-Drug Resistant Organisms: None Reported Past Surgical History: Cholecystectomy, Hysterectomy, Joint Replacement, Orthopedic Surgery, Tubal Ligation Additional Past Surgical History / Comment(s): PORT-A-CATH RIGHT CHEST with later removal, COLONOSCOPY, EXCISION OF LIPOMA FROM ABDOMINAL WALL, LEFT FEMUR SURGERY X2, knee replacement 03/2021, EGD and [id number] placement 01/29/24. Past Anesthesia/Blood Transfusion Reactions: No Reported Reaction Additional Past Anesthesia/Blood Transfusion Reaction / Comm: NO COMPLICATIONS WITH BLOOD TRANSFUSION. Past Psychological History: Anxiety Smoking Status: Former smoker Past Alcohol Use History: Occasional Additional Past Alcohol Use History / Comment(s): QUIT SMOKING 2004, STARTED IN 1984, SMOKED LESS THAN 1 PPD. DRINKS 3 PER WEEK, NO ALCOHOL IN THE LAST FEW WEEKS. Past Drug Use History: None Reported - Past Family History Mother Family Medical History: Cancer Additional Family Medical History / Comment(s): SQUAMOUS CELL CA-NECK. Father History Unknown: Yes Medications and Allergies Home Medications Medication Instructions Recorded Confirmed Type Levothyroxine Sodium [Synthroid] 88 mcg PO DAILY 06/30/15 03/28/24 History Omeprazole 20 mg PO DAILY 06/30/15 03/28/24 History ALPRAZolam [Xanax] 0.25 mg PO BID 07/31/17 03/28/24 History Pravastatin Sodium 80 mg PO HS 08/03/20 03/28/24 History Furosemide [Lasix] 20 mg PO BID 12/06/21 03/28/24 History Potassium Chloride ER [K-Dur 10] 10 meq PO DAILY 12/06/21 03/28/24 History Losartan Potassium [Cozaar] 100 mg PO DAILY 09/13/22 03/28/24 History Fluticasone Propion/Salmeterol 2 puff INHALATION RT-BID 01/24/24 03/28/24 History [Advair Hfa 230-21 Mcg Inhaler] Ondansetron [Zofran] 4 mg PO Q4H PRN 02/12/24 03/28/24 History Cholecalciferol (Vitamin D3) 50 mcg PO DAILY 03/28/24 03/28/24 History [Vitamin D3 (50 Mcg = 2000 Iu)] Diphenoxylate HCl/Atropine 1 tab PO QID 03/28/24 03/28/24 History [Lomotil 2.5-0.025 mg Tablet] HYDROcodone/APAP 10-325MG [[place] 1 tab PO Q4HR PRN 03/28/24 03/28/24 History 10-325] Lido2%/Mdryl/Trgl357 5 ml PO QID PRN 03/28/24 03/28/24 History Allergies Allergy/AdvReac Type Severity Reaction Status Date / Time amoxicillin Allergy Rash/Hives Verified 03/28/24 18:38 Physical Exam Vitals: Vital Signs Temp Pulse Pulse Resp BP BP Pulse Ox 03/29/24 07:19 98.0 F 86 18 128/80 99 03/29/24 01:51 98.2 F 82 18 105/65 97 03/28/24 21:15 97.5 F L 96 20 160/81 98 03/28/24 21:01 98.1 F 84 16 126/72 95 03/28/24 21:00 96 20 03/28/24 18:31 89 18 129/74 94 L 03/28/24 16:29 98.6 F 86 18 114/77 95 Intake and Output 03/28/24 03/29/24 03/29/24 22:59 06:59 14:59 Other: Voiding Method Toilet Toilet # Voids 1 1 Weight 73.028 kg Results CBC & Chem 7: 03/29/24 04:17 03/29/24 04:17 Labs: Abnormal Lab Results - Last 24 Hours (Table) 03/28/24 03/28/24 03/28/24 Range/Units 17:40 17:40 17:40 WBC 17.6 H (3.8-10.6) k/uL RBC 3.32 L (3.80-5.40) m/uL Hgb 10.5 L (11.4-16.0) gm/dL Hct 31.7 L (34.0-46.0) % MCV (80.0-97.0) FL RDW 15.6 H (11.5-15.5) % Plt Count 137 L D (150-450) k/uL Neutrophils # 13.8 H (1.3-7.7) k/uL Monocytes # 1.3 H (0-1.0) k/uL NRBC/100 WBC Diff (0.00-0.01) X 10*3/uL PT 9.8 L (10.0-12.5) sec BUN 19 H (7-17) mg/dL BUN/Creatinine Ratio (12.00-20.00) Ratio Glucose 114 H (74-99) mg/dL Total Bilirubin (0.3-1.2) mg/dL AST 47 H (14-36) U/L Alkaline Phosphatase 209 H (38-126) U/L Total Protein (6.2-8.2) g/dL Albumin 3.4 L (3.5-5.0) g/dL Albumin/Globulin Ratio (1.60-3.17) Ratio 03/29/24 03/29/24 Range/Units 04:17 04:17 WBC 11.87 H (3.8-10.6) k/uL RBC 2.72 L (3.80-5.40) m/uL Hgb 8.5 L (11.4-16.0) gm/dL Hct 26.6 L (34.0-46.0) % MCV 97.8 H (80.0-97.0) FL RDW 14.7 H (11.5-15.5) % Plt Count 126 L (150-450) k/uL Neutrophils # (1.3-7.7) k/uL Monocytes # (0-1.0) k/uL NRBC/100 WBC Diff 0.04 H (0.00-0.01) X 10*3/uL PT (10.0-12.5) sec BUN (7-17) mg/dL BUN/Creatinine Ratio 22.86 H (12.00-20.00) Ratio Glucose (74-99) mg/dL Total Bilirubin 0.2 L (0.3-1.2) mg/dL AST (14-36) U/L Alkaline Phosphatase 171 H (38-126) U/L Total Protein 5.4 L (6.2-8.2) g/dL Albumin 3.1 L (3.5-5.0) g/dL Albumin/Globulin Ratio 1.35 L (1.60-3.17) Ratio Assessment and Plan Plan: 1patient presented to hospital with right second toe abscess and cellulitis with attempted drainage in the outpatient setting with evidence of significant cellulitis of the right second toe may benefit from further surgical drainage and will need to cover for the gram-positive skin dolly to be the likely pathogen gram-negative infection less likely but not entirely excluded 2-patient with amoxicillin allergy with a rash has tolerated Keflex without any problem 3-vancomycin pharmacy to dose target trough of 15 while watching kidney function and Vanco trough closely, however discussed with Levaquin and add Rocephin 2 g daily to cover for the gram-negative 4-we will wait for the pain response and culture to finalize determine her discharge antibiotic which may take few days this has been explained to the patient and the family in layman terms as they were told by ER physician that she may be able to go home today which is not correct We will follow on clinical condition and cultures to further adjust medication if needed Thank you for this consultation we will follow the patient along with you Dictation was produced using [employer] dictation software. please excuse any grammatical, word or spelling errors. Time with Patient: Greater than 30
[2024-03-30 07:03] LABS: African American GFR (CKD) >90 (>60 ml/min/1.73 sqM); Non-African American GFR(CKD) >90 (>60 ml/min/1.73 sqM)
[2024-03-30] MEDS: LIDOCAINE 1% INJ 10MG/ML (20 ML MDV) SQ ONE (10:08)
--- NOTE | 2024-03-30 10:24 | P.GSCN ---
History of Present Illness History of present illness: 68-year-old white female consulted for right foot second toe infected according to the patient she may have trauma to the foot in the past patient was seen by basket maker and sent to the emergency room for further management was consulted for right foot second toe infected wound. Patient white cell count is 17.6 patient also has CF esophagus on chemotherapy no history of diabetes Chest examination chest is clear for second sound present abdomen soft nontender Vascular femorals are 2+ bilateral dorsal pedis 1+ right foot second toe is marked redness and there is a skin necrosis and of mild tenderness noted suggestive of abscess patient is an IV antibiotic under care of infectious d isease we have discussed the different options Plan is I&D and deep culture follow with you Past Medical History Past Medical History: Cancer, COPD, GERD/Reflux, Hyperlipidemia, Hypertension, Osteoarthritis (OA), Pneumonia, Thyroid Disorder Additional Past Medical History / Comment(s): Currently receiving chemo for cancer reoccurence - mass inesophagus and liver. OVARIAN CANCER DX 02/2015, LAST CHEMO Sep. IBS, CHRONIC BACK PAIN, HX OF BRONCHITIS. History of Any Multi-Drug Resistant Organisms: None Reported Past Surgical History: Cholecystectomy, Hysterectomy, Joint Replacement, Orthopedic Surgery, Tubal Ligation Additional Past Surgical History / Comment(s): PORT-A-CATH RIGHT CHEST with later removal, COLONOSCOPY, EXCISION OF LIPOMA FROM ABDOMINAL WALL, LEFT FEMUR SURGERY X2, knee replacement 03/2021, EGD and [id number] placement 01/29/24. Past Anesthesia/Blood Transfusion Reactions: No Reported Reaction Additional Past Anesthesia/Blood Transfusion Reaction / Comm: NO COMPLICATIONS WITH BLOOD TRANSFUSION. Past Psychological History: Anxiety Smoking Status: Former smoker Past Alcohol Use History: Occasional Additional Past Alcohol Use History / Comment(s): QUIT SMOKING 2004, STARTED IN 1984, SMOKED LESS THAN 1 PPD. DRINKS 3 PER WEEK, NO ALCOHOL IN THE LAST FEW WEEKS. Past Drug Use History: None Reported - Past Family History Mother Family Medical History: Cancer Additional Family Medical History / Comment(s): SQUAMOUS CELL CA-NECK. Father History Unknown: Yes Medications and Allergies Home Medications Medication Instructions Recorded Confirmed Type Levothyroxine Sodium [Synthroid] 88 mcg PO DAILY 06/30/15 03/28/24 History Omeprazole 20 mg PO DAILY 06/30/15 03/28/24 History ALPRAZolam [Xanax] 0.25 mg PO BID 07/31/17 03/28/24 History Pravastatin Sodium 80 mg PO HS 08/03/20 03/28/24 History Furosemide [Lasix] 20 mg PO BID 12/06/21 03/28/24 History Potassium Chloride ER [K-Dur 10] 10 meq PO DAILY 12/06/21 03/28/24 History Losartan Potassium [Cozaar] 100 mg PO DAILY 09/13/22 03/28/24 History Fluticasone Propion/Salmeterol 2 puff INHALATION RT-BID 01/24/24 03/28/24 H istory [Advair Hfa 230-21 Mcg Inhaler] Ondansetron [Zofran] 4 mg PO Q4H PRN 02/12/24 03/28/24 History Cholecalciferol (Vitamin D3) 50 mcg PO DAILY 03/28/24 03/28/24 History [Vitamin D3 (50 Mcg = 2000 Iu)] Diphenoxylate HCl/Atropine 1 tab PO QID 03/28/24 03/28/24 History [Lomotil 2.5-0.025 mg Tablet] HYDROcodone/APAP 10-325MG [[place] 1 tab PO Q4HR PRN 03/28/24 03/28/24 History 10-325] Lido2%/Mdryl/Nqoy332 5 ml PO QID PRN 03/28/24 03/28/24 History Allergies Allergy/AdvReac Type Severity Reaction Status Date / Time amoxicillin Allergy Rash/Hives Verified 03/28/24 18:38 Surgical - Exam Vital Signs Temp Pulse Resp BP Pulse Ox 98.6 F 86 18 114/77 95 03/28/24 16:29 03/28/24 16:29 03/28/24 16:29 03/28/24 16:29 03/28/24 16:29 Results - Labs 03/29/24 04:17 03/30/24 05:59 Abnormal Lab Results - Last 24 Hours (Table) 03/29/24 Range/Units 04:17 Immature Gran # 0.17 H (0.00-0.04) X 10*3/uL Neutrophils # 8.32 H (1.80-7.70) X 10*3/uL Monocytes # 1.63 H (0.20-1.00) X 10*3/uL Toxic Granulation 2+ A Microbiology - Last 24 Hours (Table) 03/28/24 18:08 Blood Culture - Preliminary Blood 03/28/24 18:18 Blood Culture - Preliminary Blood Diabetes panel 03/30/24 Range/Units 05:59 Creatinine 0.53 (0.52-1.04) mg/dL Pituitary panel 03/30/24 Range/Units 05:59 Creatinine 0.53 (0.52-1.04) mg/dL Adrenal panel 03/30/24 Range/Units 05:59 Creatinine 0.53 (0.52-1.04) mg/dL
--- NOTE | 2024-03-30 10:26 | P.PCN ---
Description of Procedure: Preop diagnosis is right foot second toe abscess Procedures I&D of the abscess with deep culture Right foot was prepped 1% lidocaine plain infiltrated on the dorsal aspect of the distal phalanx incision was made on the dorsal aspect of the second toe deepened through skin and fat and there pus came out which was sent for deep culture wound was irrigated with saline epicenter applied dressing applied patient taught the procedure well prognosis guarded I have discussed with the family most likely she will need a ray amputation will follow with you we will change dressing tomorrow
--- NOTE | 2024-03-30 13:25 | P.PN ---
Subjective Progress Note Date: 03/30/24 Principal diagnosis: abscess cellulitis second toe right foot Joslyn is a 68-year-old female well-known to my practice with a recent diagnosis of esophageal cancer for which she is undergoing chemotherapy and is being fed by a PEG tube because of esophageal obstruction, patient is otherwise doing well, we'll a wound to her right second toe secondary to trauma, was sta rted on Bactrim DS for 10 days improvement was noted when she completed the therapy shortly after that the cellulitis returned and became more intense as evaluated by podiatry, and sent to the hospital for evaluation for the cellulitis, because of patient's comorbidities, and current diagnosis of es ophageal cancer with a therapeutic considerations, risks versus benefits of amputation discussed at length with patient, she understands , and has accepted that the possibility of amputation is real Objective - Vital Signs Vital signs: Vital Signs Temp 98.1 F 03/30/24 11:33 Pulse 90 03/30/24 11:33 Resp 18 03/30/24 11:33 BP 155/83 03/30/24 11:33 Pulse Ox 95 03/30/24 11:33 FiO2 Intake & Output 03/29/24 03/30/24 03/30/24 18:59 06:59 18:59 Intake Total 720 Balance 720 Weight 74.8 kg 75.3 kg Intake: Tube Feeding 720 Other: Voiding Method Toilet Toilet # Voids 3 1 - Exam General: [Patient awake, alert and oriented times 3. Patient in no acute distress.] HEENT: [PERRL. EOMI. No pharyngeal erythema or exudate.] Neck: [No adenopathy.] Cardiac: [Heart regular in rate and rhythm. No S3. No S4. No clicks, rubs. No murmur.] Lungs: [Clear to auscultation bilaterally.] Abdomen: [No mass. No organomegaly. Bowel sounds presnt and normoactive in all 4 quadrants. PEG tube noted, tube feeds infusing Extremes: right second toe, swollen from the second toe into the forefoot, warm to touch and quite painful IV antibiotics noted : normal female genitalia Musculoskeletal: [No joint erythema, edema or tenderness.] Skin: [No rash.] Neurologic: [No lateralizing deficits. CN II - XII grossly intact.] Lymphatic: [No adenopathy.] - Labs CBC & Chem 7: 03/29/24 04:17 03/30/24 05:59 Labs: Microbiology - Last 24 Hours (Table) 03/28/24 18:08 Blood Culture - Preliminary Blood 03/28/24 18:18 Blood Culture - Preliminary Blood Assessment and Plan (1) Cellulitis of second toe, right Current Visit: Yes Status: Acute Code(s): L03.031 - CELLULITIS OF RIGHT TOE SNOMED Code(s): 36828203 Plan: patient has cellulitis of the right second toe Chemotherapy secondary to esophageal cancer Consults Dr. Booth vascular surgery possible amputation considered infectious disease consultation noted heme oncology consultation noted Patient is hemodynamically stable IV antibiotics on board Time with Patient: Greater than 30
--- NOTE | 2024-03-30 13:33 | P.CONS ---
History of Present Illness - Reason for Consult Consult date: 03/30/24 esophageal cancer on chemo Requesting physician: Caleb Fisher Jr - Chief Complaint left toe infection - History of Present Illness Ms. Real is a very pleasant 58-year-old female with multiple comorbidities including history of ovarian cancer status post resection and chemotherapy and more recently diagnosed with distal esophageal cancer, metastatic, on palliative chemotherapy with FOLFOX and Herceptin status post cycle 3 given on 03/18/2024. She comes in for infected left toe. She has been following with podiatry for a toe infection and was sent to the hospital for antibiotics by her sign designer. She was evaluated by surgery and underwent I&D with deep culture of a toe abscess. Workup with WBC 17.8, hemoglobin 10.5, platelet 137. We were consulted for her cancer diagnosis on active chemotherapy. She feels well however she may need toe amputation and is anxious about this. Currently on antibiotics. She did tolerate last cycle of chemo better, without mucositis, and with nausea/fatigue for 4 days after chemo. Cancer History: Pt follows with Dr. Patterson. This is a very nice lady who presented with vaginal spotting in ,she was evaluated by Dr Lindsay,had CT scan and U/S revealing 7-8cm complex cystic mass in the right hemipelvis,CA125 was 68.9. 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 BRCA1/BRCA2 full sequence testing were negative. She started carboplatin/dose dense taxol on 05/19/2015. On 08/12/2015,CA125 was 5. On 09/23/2015,CA125 was 3.1. She completed 6 cycles on carboplatin/taxol on 10/20/2015. Repeat CT scan of chest/abdomen/pelvis on 01/12/2016 revealed no evidence of disease. On 01/19/2016,CA125 was 10. On 04/18/2016 CA125 was 7.7. Repeat CT scan of chest/abdomen/pelvis on 07/06/2016 revealed no evidence of disease. CA125 was 6 on 07/12/2016 CA125 was 6.1 on 10/19/2016. Repeat CT scan of chest/abdomen/pelvis on 01/04/2017 was negative for recurrence. On 01/10/2017,CA125 was 5.8 On 04/19/2017 CA125 was 6.6 On 04/26/2017,CT scan of abdomen/pelvis revealed large ventral hernias,no evidence of recurrence. On 07/12/2017,CA125 was 5. On 10/18/2017,CA125 was 5.3 On 01/07/2018,CT scan of chest/abdomen/pelvis was negative for recurrence On 01/18/2018,CA125 was 5.6 On 04/15/2018,CA125 was 6.5 On 04/18/2018,CT scan of chest/abdomen/pelvis was negative for recurrence. On 07/17/2018,CA125 was 5.4 On 09/18/2018,mammograms were negative, On 10/01/2018,CT scan of chest/abdomen/pelvis was negative for recurrence. On 01/21/2019,CA125 was 5.3 On 04/02/2019,CT scan of chest/abdomen/pelvis revealed no evidence of recurrence. On 07/23/2019,CA125 was 5.0. On 01/19/2020,repeat CT scan of chest/abdomen/pelvis was normal. On 01/27/2020,CA125 was 4.5 On 05/02/2022,CT scan of CAP revealed non specicif lung nodule,no evidence of recurrent ovarian cancer On 05/25/2022,CA125 was 3.6 CT scan of abdomen/pelvis in 08/2022 revealed no evidence of disease. CT chest on 04/05/2023 revealed no suspicious finding. She did well until early 2023 when she presented with worsening epigastric,RUQ pain,early satiety,weakness,nausea,was seen by Dr Adler at [facility],CT scan of chest/abdomen/pelvis showed large distal esophageal mass,liver mets,plevic mets,intrabdominal adenopathies and peritoneal implant. On 01/29/2024,EGD showed large distal esophageal mass,biopsy was positive for poorly differentiated adenocarcinoma,HER2/BERNADINE positive,MMR-proficient. PDL-1 is pending,NGS is pending. She complains of abdominal pain,some nausea,early satiety,no appetite,weight loss. 02/05/24: Clinic visit with Dr. Patterson. Plan as follows: I had a long discussion with the patient and her family today. Discussed her diagnosis,prognosis and treatment options. The treatment is not on a curative intent. Discussed mFOLFOX6+ trastuzumab regimen,potential benefits and side effects,they decided to proceed,PDL-1 and NGG requested,if PDL-1 positive,may add immunotherapy. Discussed nutritional status,she would like to avoid PEG tube at this time,discussed boosts and nutritional supplement,hoping that she will respond to systemic therapy,also discussed option of palliative radiation. 02/12/24: C1 of FOLFOX/herceptin 03/06/24: Clinic visit. CBC reviewed, WBC 2.7, ANC 1100. Hgb 9.9. Platelets 154,000. CMP and magnesium ordered. Management of mucositis discussedl. Instructed patient to begin salt and soda solution rinses daily and Cools solution Rx has been prescribed. Encouraged patient to avoid cold fluids/food to decrease symptoms of mouth sensitivity Patient is reporting frustration with current home care nurses as she feels they have not been managing and educating patient and family on parenteral nutrition pump use. Will place referral to another home care agency. Bowel regimen discussed, instructed patient to begin scheduling Imodium and if symptoms do not improve to please call clinic at which time we will start additional supportive medications, and to call clinic if she is feeling dehydrated, so we can schedule IV hydration. Patient is reporting during her last chemo she felt like she was having allergic reaction and had muscle cramping and face twitching. Patient was given additional Benadryl at that time with improvement in symptoms. Premedications have been adjusted. Patient has been monitoring blood pressure at home and states since having weight loss and decrease in oral intake her blood pressure has been lower than usual and has been noting blood pressures in the low 100s. She is currently on losartan 50 mg daily. Instructed patient she may cut pill in half and take half a dose of 25mg daily but to continue to monitor blood pressure and if she begins to notice consistent elevated blood pressures greater than 140 systolically to restart losartan at 50mg. Instructed patient to have close follow-up with her telephone plant power operator for further management and evaluation. 03/18/24: C3 FOLFOX/herceptin 03/26/24: Clinic visit. Pt here today s/p 3 cycles of FOLFOX/ogrivi with GCSF. She has severe cold sensitivity and muscle cramping in the hands and feet, she did have a dose modification already. She feels in general not very well, "it feels like it lasts longer with each chemo". C/O difficulty swallowing, she does have "spit up after tube feedings". She has lt 2nd ote pain, swelling and drainge, she was on bactrim x 5 days through her PCP for it. No better, no worse. Mucositis much better. Diarrhea is bad during chemo, she has no control, incontinence. Adding lomotil. She uses zofran for nausea and feels it does help. BP after adjusting losartan-better. Home care changed? Did not get changed, no longer wants Past Medical History Past Medical History: Cancer, COPD, GERD/Reflux, Hyperlipidemia, Hypertension, Osteoarthritis (OA), Pneumonia, Thyroid Disorder Additional Past Medical History / Comment(s): Currently receiving chemo for cancer reoccurence - mass inesophagus and liver. OVARIAN CANCER DX 02/2015, LAST CHEMO Sep. IBS, CHRONIC BACK PAIN, HX OF BRONCHITIS. History of Any Multi-Drug Resistant Organisms: None Reported Past Surgical History: Cholecystectomy, Hysterectomy, Joint Replacement, Orthopedic Surgery, Tubal Ligation Additional Past Surgical History / Comment(s): PORT-A-CATH RIGHT CHEST with later removal, COLONOSCOPY, EXCISION OF LIPOMA FROM ABDOMINAL WALL, LEFT FEMUR SURGERY X2, knee replacement 03/2021, EGD and [id number]-[id number] placement 01/29/24. Past Anesthesia/Blood Transfusion Reactions: No Reported Reaction Additional Past Anesthesia/Blood Transfusion Reaction / Comm: NO COMPLICATIONS WITH BLOOD TRANSFUSION. Past Psychological History: Anxiety Smoking Status: Former smoker Past Alcohol Use History: Occasional Additional Past Alcohol Use History / Comment(s): QUIT SMOKING 2004, STARTED IN 1984, SMOKED LESS THAN 1 PPD. DRINKS 3 PER WEEK, NO ALCOHOL IN THE LAST FEW WEEKS. Past Drug Use History: None Reported - Past Family History Mother Family Medical History: Cancer Additional Family Medical History / Comment(s): SQUAMOUS CELL CA-NECK. Father History Unknown: Yes Medications and Allergies Home Medications Medication Instructions Recorded Confirmed Type Levothyroxine Sodium [Synthroid] 88 mcg PO DAILY 06/30/15 03/28/24 History Omeprazole 20 mg PO DAILY 06/30/15 03/28/24 History ALPRAZolam [Xanax] 0.25 mg PO BID 07/31/17 03/28/24 History Pravastatin Sodium 80 mg PO HS 08/03/20 03/28/24 History Furosemide [Lasix] 20 mg PO BID 12/06/21 03/28/24 History Potassium Chloride ER [K-Dur 10] 10 meq PO DAILY 12/06/21 03/28/24 History Losartan Potassium [Cozaar] 100 mg PO DAILY 09/13/22 03/28/24 History Fluticasone Propion/Salmeterol 2 puff INHALATION RT-BID 01/24/24 03/28/24 History [Advair Hfa 230-21 Mcg Inhaler] Ondansetron [Zofran] 4 mg PO Q4H PRN 02/12/24 03/28/24 History Cholecalciferol (Vitamin D3) 50 mcg PO DAILY 03/28/24 03/28/24 History [Vitamin D3 (50 Mcg = 2000 Iu)] Diphenoxylate HCl/Atropine 1 tab PO QID 03/28/24 03/28/24 History [Lomotil 2.5-0.025 mg Tablet] HYDROcodone/APAP 10-325MG [[place] 1 tab PO Q4HR PRN 03/28/24 03/28/24 History 10-325] Lido2%/Mdryl/Jhoo465 5 ml PO QID PRN 03/28/24 03/28/24 History Allergies Allergy/AdvReac Type Severity Reaction Status Date / Time amoxicillin Allergy Rash/Hives Verified 03/28/24 18:38 Physical Exam Vitals: Vital Signs Temp Pulse Resp BP Pulse Ox 03/30/24 07:19 97.9 F 63 18 99/59 95 03/30/24 01:40 97.7 F 74 20 122/77 97 03/29/24 19:51 98.5 F 84 20 121/73 95 03/29/24 11:30 98.6 F 71 18 107/67 95 Intake and Output 03/29/24 03/30/24 03/30/24 22:59 06:59 14:59 Intake Total 240 Balance 240 Intake: Tube Feeding 240 Other: Voiding Method Toilet # Voids 3 Weight 74.8 kg 75.3 kg Patient appears to be in no acute distress. No respiratory distress. Regular heart rate. Alert and oriented x 3. Results CBC & Chem 7: 03/29/24 04:17 03/30/24 05:59 Labs: Microbiology - Last 24 Hours (Table) 03/28/24 18:08 Blood Culture - Preliminary Blood 03/28/24 18:18 Blood Culture - Preliminary Blood Assessment and Plan Assessment: 1. Toe abscess 2. Metastatic esophageal cancer on chemotherapy 3. Leukocytosis due to infection 4. Anemia and thrombocytopenia due to chemotherapy Plan: Ms. Real is a very pleasant 68-year-old female with a history of metastatic esophageal cancer on chemotherapy with FOLFOX and Herceptin, status post cycle 3 given on 03/18/2024, who is here for infected left toe per her sign designer, complicated by an abscess. She is status post I&D of her abscess, continues to be on IV antibiotics with ID following. -Hold chemotherapy until her active infection is controlled -Pt states she may need amputation of her toe, anxious about this -Antibiotics as per ID service -Leukocytosis reactive, improving. -Anemia and thrombocytopenia due to chemotherapy, with acute drop dilutional and due to recent I&D/surgery. Monitor for now -Tolerated C3 of chemo better, with nausea/fatigue for 4 days, otherwise no mucositis or other significant toxicity Discussed with patient and she is agreeable to plan. All of her questions were answered.
[2024-03-30] MEDS: HYDROcodone/APAP 10-325MG 1 EACH TAB PO PRN (15:05)
[2024-03-30] MEDS: VANCOMYCIN TROUGH DUE 1 EACH MISC MISCELLANE ONE (18:23)
[2024-03-31 08:35] LABS: African American GFR (CKD) >90 (>60 ml/min/1.73 sqM); Non-African American GFR(CKD) >90 (>60 ml/min/1.73 sqM)
--- NOTE | 2024-03-31 12:36 | P.PN ---
Progress Note - Text 68-year-old white female patient had history of CF with esophagus and an ovarian cancer patient came with the right foot second toe redness neutral possible trauma we did I&D yesterday today we noticed less redness and direct Gram stain came back as positive cocci patient antibiotic under care of infectious disease I have changed her dressing today. There is extra silver we will change the dressing tomorrow there is some improvement after the I&D of the abscess
--- NOTE | 2024-03-31 14:02 | P.PN ---
Subjective March 31, 2024: This pleasant 68-year-old female with a history of esophageal cancer with PEG tube feedings. He developed redness to the right #2 chills I treated the office with Bactrim. She is undergoing chemotherapy. 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 He also remains on ceftriaxone vitals were stable patient remains afebrile. Labs are pending. She had a leukocytosis on admission. She is being followed by infectious disease and oncology. Objective - Vital Signs Vital signs: Vital Signs Temp 97.8 F 03/31/24 11:28 Pulse 72 03/31/24 11:28 Resp 18 03/31/24 11:28 BP 102/65 03/31/24 11:28 Pulse Ox 98 03/31/24 11:28 FiO2 Intake & Output 03/30/24 03/31/24 03/31/24 18:59 06:59 18:59 Intake Total 720 Balance 720 Weight 76.8 kg Intake: Tube Feeding 720 Other: Voiding Method Toilet Toilet # Voids 1 - Exam GENERAL: Well-appearing, well-nourished and in no acute distress. HEAD: Atraumatic, normocephalic. NECK: Normal range of motion, supple without lymphadenopathy or JVD, no thyromegaly LUNGS: Breath sounds clear to auscultation bilaterally and equal. No wheezes rales or rhonchi. HEART: Regular rate and rhythm without murmurs, rubs or gallops.S1S2 Normal ABDOMEN: Soft, nontender, normoactive bowel sounds. No guarding, no rebound. No masses appreciated. PEG tube has some mild erythema surrounding it for approximately 0.5 cm circumferentially EXTREMITIES: Normal range of motion, no pitting or edema. No clubbing or cyanosis. NEUROLOGICAL: Cranial nerves II through XII grossly intact. Normal speech, normal gait. PSYCH: Normal mood, normal affect. SKIN: Warm, Dry, normal turgor, no rashes or lesions noted. Right foot has a dressing that is intact. - Labs CBC & Chem 7: 03/29/24 04:17 03/31/24 05:51 Labs: Microbiology - Last 24 Hours (Table) 03/30/24 10:15 Gram Stain - Preliminary Foot - Right Wound Culture - Preliminary 03/28/24 18:08 Blood Culture - Preliminary Blood 03/28/24 18:18 Blood Culture - Preliminary Blood 03/28/24 17:40 Gram Stain - Final Toe - Right Second Wound Culture - Final Assessment and Plan Plan: Cellulitis right #2 toe, status post I&D, vascular surgery is following she remains on IV antibiotics per infectious diseases vancomycin and Rocephin. Esophageal cancer: Chemotherapy is currently on hold. Hematology has been following. Asthma: Patient remains on Symbicort Hypothyroidism: Patient remains on thyroxine Hypertension: Patient remains on losartan and furosemide History of PEG tube: Will add Calmoseptine to the SIRENA PEG tube area at this time. She will continue her feedings as directed Patient continue on her course wait on vascular surgery infectious disease recommendations. Patient will be reevaluated in the next 24 hours.
[2024-03-31] MEDS: MENTHOL-ZINC OXIDE OINT 113 GM TUBE TOPICAL PRN (16:07)
--- NOTE | 2024-03-31 16:36 | P.PN ---
Subjective Progress Note Date: 03/31/24 S/p I&D of right second toe abscess. Vascular surgery following and considering toe amputation. Repeat wound culture negative thus far, continues on IV antibiotics. Leukocytosis improved today, WBC 11.8. Hemoglobin 8.5, platelets 126,000. Objective - Vital Signs Vital signs: Vital Signs Temp 97.8 F 03/31/24 11:28 Pulse 72 03/31/24 11:28 Resp 18 03/31/24 11:28 BP 102/65 03/31/24 11:28 Pulse Ox 98 03/31/24 11:28 FiO2 Intake & Output 03/30/24 03/31/24 03/31/24 18:59 06:59 18:59 Intake Total 720 Balance 720 Weight 76.8 kg Intake: Tube Feeding 720 Other: Voiding Method Toilet Toilet # Voids 1 - Constitutional General appearance: Present: average body habitus, no acute distress - EENT Eyes: Present: anicteric sclerae, EOMI ENT: Present: hearing grossly normal - Respiratory Details: breathing is even and unlabored - Cardiovascular Details: skin warm and dry - Integumentary Integumentary Comment(s): right foot wrapped in dressing, no drainage noted on dressing - Musculoskeletal Musculoskeletal: Present: strength equal bilaterally - Psychiatric Psychiatric: Present: A&O x's 3 - Labs CBC & Chem 7: 03/29/24 04:17 03/31/24 05:51 Labs: Microbiology - Last 24 Hours (Table) 03/30/24 10:15 Gram Stain - Preliminary Foot - Right Wound Culture - Preliminary 03/28/24 18:08 Blood Culture - Preliminary Blood 03/28/24 18:18 Blood Culture - Preliminary Blood 03/28/24 17:40 Gram Stain - Final Toe - Right Second Wound Culture - Final Assessment and Plan (1) Cellulitis of second toe, right Current Visit: Yes Status: Acute Priority: High Code(s): L03.031 - CELLULITIS OF RIGHT TOE SNOMED Code(s): 08934168 (2) Esophageal adenocarcinoma Current Visit: Yes Status: Acute Priority: High Code(s): C15.9 - MALIGNANT NEOPLASM OF ESOPHAGUS, UNSPECIFIED SNOMED Code(s): 168196918 Plan: Ms. Real is a very pleasant 68-year-old female with a history of metastatic esophageal cancer on chemotherapy with FOLFOX and Herceptin, status post cycle 3 given on 03/18/2024, who is here for infected left toe per her eight arm operator, complicated by an abscess. She is status post I&D of her abscess, continues to be on IV antibiotics with ID following. -S/p I&D of right second toe abscess. Vascular surgery following and considering toe amputation. Repeat wound culture negative thus far -Antibiotics as per ID service -Leukocytosis reactive, improving. -Anemia and thrombocytopenia due to chemotherapy, with acute drop dilutional and due to recent I&D/surgery. Monitor for now -Tolerated C3 of chemo better, with nausea/fatigue for 4 days, otherwise no mucositis or other significant toxicity. Discussed case with primary oncologist. Dr Patterson. Will plan to hold chemo for now, pending recovery from infection and possible toe amputation. Clinic f/u scheduled for 04/07, and will plan for treatment response scans in the next couple weeks once recovered
--- NOTE | 2024-03-31 21:50 | P.PN ---
Subjective Progress Note Date: 03/30/24 Principal diagnosis: Reason for follow-up is right second toe abscess and cellulitis Patient is a 68-year-old female with a past medical history significant for hypertension hyperlipidemia reflux and currently undergoing chemotherapy for esophageal cancer has been brought into the hospital concerning for right second toe pain and swelling and redness diagnosed with a right second toe abscess s/p admission attempted drainage by podiatry and subsequently did have a drainage by vascular surgery on 03/30/2024. On today's evaluation that is 03/30/2024,the patient remains to be afebrile, patient is on room air not requiring supplemental oxygen and denies any shortness of breath no chest pain or cough.Patient denies having any nausea or vomiting, no abdominal pain and no diarrhea has been reported, pain to the right second toe has slightly decreased in intensity Patient did have a creatinine 0.53 no CBC was done today cultures are pending Objective - Vital Signs Vital signs: Vital Signs Temp 98.1 F 03/30/24 11:33 Pulse 90 03/30/24 11:33 Resp 18 03/30/24 11:33 BP 155/83 03/30/24 11:33 Pulse Ox 95 03/30/24 11:33 FiO2 Intake & Output 03/29/24 03/30/24 03/30/24 18:59 06:59 18:59 Intake Total 720 480 Balance 720 480 Weight 74.8 kg 75.3 kg Intake: Tube Feeding 720 480 Other: Voiding Method Toilet Toilet Toilet # Voids 3 1 - Exam GENERAL DESCRIPTION: An elderly female lying in bed in no distress RESPIRATORY SYSTEM: Unlabored breathing , decreased breath sounds at bases HEART: S1 S2 regular rate and rhythm , ABDOMEN: Soft , no tenderness EXTREMITIES: Right foot is currently dressed no drainage on the dressing - Labs CBC & Chem 7: 03/29/24 04:17 03/31/24 05:51 Labs: Microbiology - Last 24 Hours (Table) 03/28/24 18:08 Blood Culture - Preliminary Blood 03/28/24 18:18 Blood Culture - Preliminary Blood Assessment and Plan (1) Abscess of toe of right foot Current Visit: Yes Status: Acute Code(s): L02.611 - CUTANEOUS ABSCESS OF RIGHT FOOT SNOMED Code(s): 04320954883834521 (2) Penicillin allergy Current Visit: Yes Status: Acute Code(s): Z88.0 - ALLERGY STATUS TO PENICILLIN SNOMED Code(s): 50158711 (3) Cellulitis of second toe, right Current Visit: Yes Status: Acute Priority: High Code(s): L03.031 - CELLULITIS OF RIGHT TOE SNOMED Code(s): 33899289 Plan: 1patient presented to hospital with right second toe abscess and cellulitis with attempted drainage in the outpatient setting with evidence of significant cellulitis of the right second toe may benefit from further surgical drainage and will need to cover for the gram-positive skin dolly to be the likely pathogen gram-negative infection less likely but not entirely excluded 2-patient with amoxicillin allergy with a rash has tolerated Keflex without any problem 3-patient is status post vascular surgery evaluation and drainage of the abscess on 03/30/2024 cultures pending 4-patient to continue Rocephin and vancomycin while waiting for the culture to finalize Dictation was produced using [employer] dictation software. please excuse any grammatical, word or spelling errors. Time with Patient: Less than 30
--- NOTE | 2024-03-31 21:51 | P.PN ---
Subjective Progress Note Date: 03/31/24 Principal diagnosis: Reason for follow-up is right second toe abscess and cellulitis Patient is a 68-year-old female with a past medical history significant for hypertension hyperlipidemia reflux and currently undergoing chemotherapy for esophageal cancer has been brought into the hospital concerning for right second toe pain and swelling and redness diagnosed with a right second toe abscess s/p admission attempted drainage by podiatry and subsequently did have a drainage by vascular surgery on 03/30/2024. On today's evaluation that is 03/31/2024, the patient continues to be afebrile, the patient is on room air and breathing comfortably, the Pt denies having any chest pain or cough, the patient denies having any abdominal pain no vomiting or any diarrhea patient denies any worsening pain to the right second toe No CBC done today creatinine 0.57 cultures are pending Objective - Vital Signs Vital signs: Vital Signs Temp 97.8 F 03/31/24 11:28 Pulse 72 03/31/24 11:28 Resp 18 03/31/24 11:28 BP 102/65 03/31/24 11:28 Pulse Ox 98 03/31/24 11:28 FiO2 Intake & Output 03/30/24 03/31/24 03/31/24 18:59 06:59 18:59 Intake Total 720 700 Balance 720 700 Weight 76.8 kg Intake: Intake, IV Titration 700 Amount Sodium Chloride 0.9% 1, 400 000 ml @ 75 mls/hr IV . [id number] JOHN Rx#:[id number] Vancomycin 1,250 mg In 250 Sodium Chloride 0.9% 250 ml @ 125 mls/hr IVPB Q12H JOHN Rx#:[id number] cefTRIAXone 2 gm In 50 Sodium Chloride 0.9% 50 ml @ 100 mls/hr IVPB Q24HR JOHN Rx#:[id number] Tube Feeding 720 Other: Voiding Method Toilet Toilet # Voids 1 - Exam GENERAL DESCRIPTION: An elderly female lying in bed in no distress RESPIRATORY SYSTEM: Unlabored breathing , decreased breath sounds at bases HEART: S1 S2 regular rate and rhythm , ABDOMEN: Soft , no tenderness EXTREMITIES: Right foot is currently dressed no drainage on the dressing - Labs CBC & Chem 7: 03/29/24 04:17 03/31/24 05:51 Labs: Microbiology - Last 24 Hours (Table) 03/30/24 10:15 Gram Stain - Preliminary Foot - Right Wound Culture - Preliminary 03/28/24 18:08 Blood Culture - Preliminary Blood 03/28/24 18:18 Blood Culture - Preliminary Blood 03/28/24 17:40 Gram Stain - Final Toe - Right Second Wound Culture - Final Assessment and Plan (1) Abscess of toe of right foot Current Visit: Yes Status: Acute Code(s): L02.611 - CUTANEOUS ABSCESS OF RIGHT FOOT SNOMED Code(s): 50033719166168515 (2) Cellulitis of second toe, right Current Visit: Yes Status: Acute Priority: High Code(s): L03.031 - CELLULITIS OF RIGHT TOE SNOMED Code(s): 25275122 (3) Penicillin allergy Current Visit: Yes Status: Acute Code(s): Z88.0 - ALLERGY STATUS TO PENICILLIN SNOMED Code(s): 78631956 Plan: 1patient presented to hospital with right second toe abscess and cellulitis with attempted drainage in the outpatient setting with evidence of significant cellulitis of the right second toe may benefit from further surgical drainage and will need to cover for the gram-positive skin dolly to be the likely pathogen gram-negative infection less likely but not entirely excluded 2-patient with amoxicillin allergy with a rash has tolerated Keflex without any problem 3-patient is status post vascular surgery evaluation and drainage of the abscess on 03/30/2024 cultures are currently pending 4-patient to continue Rocephin and vancomycin while waiting for the culture to finalize to determine her discharge antibiotics Dictation was produced using [employer] dictation software. please excuse any grammatical, word or spelling errors. Time with Patient: Less than 30
[2024-04-01 08:00] LABS: African American GFR (CKD) >90 (>60 ml/min/1.73 sqM); Non-African American GFR(CKD) >90 (>60 ml/min/1.73 sqM)
[2024-04-01] MEDS: ONDANSETRON 4 MG TAB PO PRN (09:21)
[2024-04-01] MEDS: COLCHICINE 0.6 MG EACH PO SCH (14:30)
--- NOTE | 2024-04-01 16:24 | P.PN ---
Progress Note - Text 68-year-old pleasant female history of C of the esophagus C of the ovaries patient has a right foot second toe marked redness will treat I&D with IV antibiotic under care of infectious disease so far no growth seen by culture. Patient complains of pain in the right foot big toe involving the metatarsal phalangeal joint with marked tenderness noted discussed with infectious disease we will do the CT of the right foot rule out any acute infection to the metatarsophalangeal joint patient has been started on colchicine also rule out gout change dressing today the second toe is lead oxide mill tender and we have placed extra silver change dressing tomorrow
--- NOTE | 2024-04-01 17:53 | CT ---
EXAMINATION TYPE: CT foot RT w con CT DLP: 326.7 mGycm, Automated exposure control for dose reduction was used. DATE OF EXAM: 04/01/2024 5:08 PM COMPARISON: . 03/28/2024. CLINICAL INDICATION:Female, 68 years old with history of rule out abscess; PHH, R/O abscess. TECHNIQUE: Axial images were obtained of the CT foot RT w con, Additional coronal and sagittal reform atted images and soft tissue and bone window were obtained for review. Contrast used:100ml mL of Isovue 300 with IV Contrast, (None if empty) Oral contrast used: (None if empty) FINDINGS: Soft tissue edema scattered throughout the lower extremity. No organizing fluid collection identified. There is severe degeneration changes of the first digit metatarsophalangeal joint with de formity around the joint metatarsal head with punched-out lytic area medially series 6 image 2. Vascular structures appear patent. There is 2 vessels in anterior posterior tibial arteries crossing the ankle. IMPRESSION: 1. Soft tissue edema throughout the right lower extremity without evidence of organizing fluid colle ction suggest abscess. 2. Severe degeneration changes of the first digit metatarsophalangeal joint with punched-out lytic a reas possibly representing underlying gout. Correlate with serum markers.
[2024-04-02] MEDS: VANCOMYCIN TROUGH DUE 1 EACH MISC MISCELLANE ONE (06:33)
[2024-04-02] MEDS: LOSARTAN 50 MG TAB PO SCH (07:59)
[2024-04-02 10:53] LABS: Basophils # (A) 0.12 X 10*3/uL (0.00-0.10); Basophils % (A) 1.3 %; Eosinophils # (A) 1.04 X 10*3/uL (0.04-0.35); Eosinophils % (A) 11.1 %; HCT 27.5 % (37.2-46.3); HGB 8.6 g/dL (12.0-15.0); Lymphocytes # (A) 1.71 X 10*3/uL (0.90-5.00); Lymphocytes % (A) 18.2 %; MCHC 31.3 g/dL (32.0-37.0); MCV 99.3 FL (80.0-97.0); Mean Platelet Volume 9.9 FL (9.5-12.2); Monocytes # (A) 1.05 X 10*3/uL (0.20-1.00); Monocytes % (A) 11.2 %; NRBC Per 100 WBC 0 X 10*3/uL (0.00-0.01); Neutrophils # (A) 5.16 X 10*3/uL (1.80-7.70); Neutrophils % (A) 55.1 %; Platelet Count 177 X 10*3/uL (140-440); RBC 2.77 X 10*6/uL (4.10-5.20); RDW 15.3 % (11.5-14.5); WBC 9.37 X 10*3/uL (4.50-10.00)
[2024-04-02 11:06] LABS: Blood Urea Nitrogen 11.1 mg/dL (9.0-27.0); Calcium 8.9 mg/dL (8.7-10.3); Chloride 107 mmol/L (96-109); Glucose 78 mg/dL (70-110); Potassium 3.5 mmol/L (3.5-5.5); Sodium 144 mmol/L (135-145)
[2024-04-02] MEDS ORDERED: POTASSIUM CHLORIDE ER 20 MEQ TAB.ER PO STA (11:38)
[2024-04-02] MEDS: POTASSIUM CHLORIDE ER 10 MEQ TAB.ER.PRT PO STA (13:02)
--- NOTE | 2024-04-02 16:27 | P.PN ---
Progress Note - Text 68-year-old white female history of CT of the esophagus patient came with right foot second toe abscess formation which was drained and patient also developed some redness and discomfort of the right toe CT shows a generative changes of the first digit metatarsal phalangeal joint possible gout patient is on medication per infectious disease and and also IV antibiotic today will change the dressing no more drainage noted mild redness noted of the second toe plan is patient will go home and antibiotic by mouth per infectious disease and I will follow in the office on Sunday we have changed her dressing today using extra silver next dressing will be changed Sunday in my office
[2024-04-02] MEDS: VANCOMYCIN 1,250 MG in SODIUM CHLORIDE 0.9% 250 ML IVPB SCH (23:47)
[2024-04-03 01:48] VITALS: TEMP 98
[2024-04-03 07:30] LABS: African American GFR (CKD) >90 (>60 ml/min/1.73 sqM); Non-African American GFR(CKD) >90 (>60 ml/min/1.73 sqM)
[2024-04-03 08:18] VITALS: BP 145/81; PULSE 85; RESP 18
[2024-04-03 10:31] LABS: Basophils # (A) 0.13 X 10*3/uL (0.00-0.10); Basophils % (A) 1.4 %; Eosinophils # (A) 1.18 X 10*3/uL (0.04-0.35); Eosinophils % (A) 12.9 %; HCT 28.2 % (37.2-46.3); HGB 8.9 g/dL (12.0-15.0); Lymphocytes # (A) 1.97 X 10*3/uL (0.90-5.00); Lymphocytes % (A) 21.5 %; MCH 31.1 pg (27.0-32.0); MCHC 31.6 g/dL (32.0-37.0); MCV 98.6 FL (80.0-97.0); Mean Platelet Volume 9.7 FL (9.5-12.2); Monocytes # (A) 1.01 X 10*3/uL (0.20-1.00); NRBC Per 100 WBC 0 X 10*3/uL (0.00-0.01); Neutrophils # (A) 4.58 X 10*3/uL (1.80-7.70); Neutrophils % (A) 49.8 %; Platelet Count 208 X 10*3/uL (140-440); RBC 2.86 X 10*6/uL (4.10-5.20); RDW 15.4 % (11.5-14.5); WBC 9.18 X 10*3/uL (4.50-10.00)
--- NOTE | 2024-04-03 11:51 | P.PN ---
Subjective Progress Note Date: 04/01/24 March 31, 2024: This pleasant 68-year-old female with a history of esophageal cancer with PEG tube feedings. He developed redness to the right #2 chills I treated the office with Bactrim. She is undergoing chemotherapy. 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 He also remains on ceftriaxone vitals were stable patient remains afebrile. Labs are pending. She had a leukocytosis on admission. She is being followed by infectious disease and oncology. 04/01/24 status post I&D per vascular surgery on 03/30/2024, cultures in progress. Maintained on ceftriaxone and vancomycin as per infectious disease. Renal function stable. Status post I&D ,reports significant tenderness right second toe, aggravated by mobility. dressing changed at the bedside per PCP ,redness, edema improving. afebrile, leukocytosis- reactive, improving. Denies chest pain, palpitations or shortness of breath. Maintaining O2 sats in the 90s on room air. Denies nausea, vomiting or abdominal pain. Objective - Vital Signs Vital signs: Vital Signs Temp 98 F 04/01/24 13:36 Pulse 81 04/01/24 13:36 Resp 18 04/01/24 13:36 BP 146/82 04/01/24 13:36 Pulse Ox 96 04/01/24 13:36 FiO2 Intake & Output 04/01/24 04/01/24 04/02/24 06:59 18:59 06:59 Intake Total 540 Balance 540 Weight 76.9 kg 76.9 kg Intake: Oral 540 Other: Voiding Method Toilet # Voids 2 - Exam GENERAL: Alert and oriented x 3, sitting up in bed, visiting with family at bedside, no acute distress. HEAD: Atraumatic, normocephalic. NECK: Supple, no JVD LUNGS: Unlabored, equal air entry, clear to auscultation, no wheezes rales or rhonchi. HEART: Regular rate and rhythm without murmurs, rubs or gallops.S1S2 Normal ABDOMEN: Soft, nontender, normoactive bowel sounds. No guarding, no rebound. No masses appreciated. PEG tube surrounding site significantly improved with trace erythema. EXTREMITIES: Metatarsal/phalangeal joint tenderness with range of motion, no pitting or edema. No clubbing or cyanosis. NEUROLOGICAL: Cranial nerves II through XII grossly intact. Normal speech, normal gait. SKIN: Warm, Dry, normal turgor, no rashes or lesions noted. Right foot second toe, positive redness, decreased edema, serosanguineous drainage. - Labs CBC & Chem 7: 04/03/24 06:10 04/03/24 06:10 Labs: Abnormal Lab Results - Last 24 Hours (Table) 04/01/24 04/01/24 Range/Units 07:01 07:01 Creatinine 0.51 L (0.52-1.04) mg/dL Uric Acid 7.5 H (3.7-7.4) mg/dL Microbiology - Last 24 Hours (Table) 03/30/24 10:15 Anaerobic Culture - Preliminary Foot - Right 03/30/24 10:15 Gram Stain - Final Foot - Right Wound Culture - Final 03/28/24 18:08 Blood Culture - Preliminary Blood 03/28/24 18:18 Blood Culture - Preliminary Blood Assessment and Plan Assessment: Abscess with cellulitis right #2 toe, status post I&D Possible acute gout exacerbation, CT pending. Esophageal cancer: Chemotherapy is currently on hold. Hematology following. Anemia, thrombocytopenia secondary to the above Asthma, chronic, stable Hypothyroidism Hypertension History of PEG tube: Will add Calmoseptine to the SIRENA PEG tube area at this time. She will continue her feedings as directed Plan: Continue on current medication regimen ,monitoring and symptomatic treatm ent. Colchicine initiated. Right foot CT pending .wound cultures finalizing. Antibiotics as per ID. Follow closely with both ID and vascular surgery. Patient will require a wedge postop shoe. The impression and plan of care has been dictated as directed. : I performed a history and examination of this patient, discussed the same with the dictator. I agree with the dictator's note ,documented as a scribe. Any additional findings or plans will be noted.
--- NOTE | 2024-04-03 12:47 | P.PN ---
Subjective Progress Note Date: 04/03/24 March 31, 2024: This pleasant 68-year-old female with a history of esophageal cancer with PEG tube feedings. He developed redness to the right #2 chills I treated the office with Bactrim. She is undergoing chemotherapy. 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 He also remains on ceftriaxone vitals were stable patient remains afebrile. Labs are pending. She had a leukocytosis on admission. She is being followed by infectious disease and oncology. 04/01/24 status post I&D per vascular surgery on 03/30/2024, cultures in progress. Maintained on ceftriaxone and vancomycin as per infectious disease. Renal function stable. Status post I&D ,reports significant tenderness right second toe, aggravated by mobility. dressing changed at the bedside per PCP ,redness, edema improving. afebrile, leukocytosis- reactive, improving. Denies chest pain, palpitations or shortness of breath. Maintaining O2 sats in the 90s on room air. Denies nausea, vomiting or abdominal pain. 04/02/2024 continues on IV antibiotics and colchicine. Pain significantly improved .blood cultures reporting no growth after 5 days . Right foot Gram stain reported no organisms seen, anaerobic wound culture no growth after [address] completed yesterday reporting soft tissue edema throughout the right lower extremity without evidence of organizing fluid collection suggesting abscess, severe degenerative changes in the first digit metatarsal pharyngeal joint with punched-out lytic areas possibly representing underlying gout. Elevated uric acid and inflammatory markers : uric acid 7.5 CRP 3.6 ESR 42. Afebrile, WBC within normal limits. Hemoglobin 8.6, platelets 177. Potassium 3.5, supplemented. Renal function stable. Objective - Vital Signs Vital signs: Vital Signs Temp 98.3 F 04/02/24 19:11 Pulse 65 04/02/24 19:11 Resp 17 04/02/24 19:11 BP 104/66 04/02/24 19:11 Pulse Ox 95 04/02/24 19:11 FiO2 Intake & Output 04/02/24 04/02/24 04/03/24 06:59 18:59 06:59 Intake Total 1330 Balance 1330 Weight 45 kg Intake: Blood Product 1330 Other: Voiding Method Toilet # Voids 3 1 # Bowel Movements 1 1 - Exam GENERAL: Alert and oriented x 3, sitting up in bed, no acute distress. HEENT: Atraumatic, normocephalic.conjunctiva normal, MMM. NECK: Supple, no JVD LUNGS: Unlabored, equal air entry,CTA. HEART:S1S2 Normal, Regular rate and rhythm without murmurs, rubs or gallops. ABDOMEN: Soft, nontender, positive bowel sounds, no guarding, no rigidity. PEG tube surrounding site significantly improved, trace redness. EXTREMITIES: Decreased metatarsal/phalangeal joint tenderness with range of motion, no pitting or edema. No clubbing or cyanosis. NEUROLOGICAL: Cranial nerves II through XII grossly intact. SKIN: Warm, Dry, normal turgor, no rashes or lesions noted. Right foot second toe, positive redness, decreased edema, serosanguineous drainage. - Labs CBC & Chem 7: 04/03/24 06:10 04/03/24 06:10 Labs: Abnormal Lab Results - Last 24 Hours (Table) 04/02/24 04/02/24 Range/Units 06:27 06:27 RBC 2.77 L (4.10-5.20) X 10*6/uL Hgb 8.6 L (12.0-15.0) g/dL Hct 27.5 L (37.2-46.3) % MCV 99.3 H (80.0-97.0) FL MCHC 31.3 L (32.0-37.0) g/dL RDW 15.3 H (11.5-14.5) % Immature Gran # 0.29 H (0.00-0.04) X 10*3/uL Monocytes # 1.05 H (0.20-1.00) X 10*3/uL Eosinophils # 1.04 H (0.04-0.35) X 10*3/uL Basophils # 0.12 H (0.00-0.10) X 10*3/uL C-Reactive Protein 3.6 H (<1.0) mg/dL Assessment and Plan Assessment: Abscess with cellulitis right #2 toe, status post I&D Acute gout exacerbation Esophageal cancer: Chemotherapy is currently on hold. Hematology following. Anemia, thrombocytopenia secondary to the above Asthma, chronic, stable Hypothyroidism Hypertension History of PEG tube: Will add Calmoseptine to the SIRENA PEG tube area at this time. She will continue her feedings as directed Plan: Continue on current medication regimen ,monitoring and symptomatic treatment. Colchicine initiated. Right foot CT results noted, further recommendations pending per vascular surgery and infectious disease. antibiotics as per ID. Discharge planning in progress pending final DC recommendations and clearance per vascular surgery and infectious disease. The impression and plan of care has been dictated as directed. : I performed a history and examination of this patient, discussed the same with the dictator. I agree with the dictator's note ,documented as a scribe. Any additional findings or plans will be noted.
--- NOTE | 2024-04-03 13:19 | P.DS ---
Providers Date of admission: 03/28/24 18:18 Expected date of discharge: 04/03/24 Attending physician: Caleb Fisher Consults: 03/28/24 18:17 Consult Physician Routine Consulting Provider: Rusty Patterson Consult Reason/Comments: Oncological care Do you want consulting provider notified?: Yes Consult Physician Urgent Consulting Provider: Lorna Ross Consult Reason/Comments: cellutitis Do you want consulting provider notified?: Yes 03/29/24 12:08 Consult Physician Routine Consulting Provider: Humza Booth Consult Reason/Comments: infected toe Do you want consulting provider notified?: Already Contacted Primary care physician: [facility] Course: Final Diagnoses: Abscess with cellulitis right #2 toe, status post attempted outpatient I & D, by podiatry, status post I&D per vascular surgery Acute gout exacerbation Esophageal cancer: Chemotherapy is currently on hold. Hematology following. Anemia, thrombocytopenia secondary to the above Asthma, chronic, stable Hypothyroidism Hypertension History of PEG tube: Will add Calmoseptine to the SIRENA PEG tube area at this time. She will continue her feedings as directed Hospital course:March 31, 2024: This pleasant 68-year-old female with a history of esophageal cancer with PEG tube feedings. He developed redness to the right #2 chills I treated the office with Bactrim. She is undergoing chemotherapy. 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 He also remains on ceftriaxone vitals were stable patient remains afebrile. Labs are pending. She had a leukocytosis on admission. She is being followed by infectious disease and oncology. 04/01/24 status post I&D per vascular surgery on 03/30/2024, cultures in progress. Maintained on ceftriaxone and vancomycin as per infectious disease. Renal function stable. Status post I&D ,reports significant tenderness right second toe, aggravated by mobility. dressing changed at the bedside per PCP ,redness, edema improving. afebrile, leukocytosis- reactive, improving. Denies chest pain, palpitations or shortness of breath. Maintaining O2 sats in the 90s on room air. Denies nausea, vomiting or abdominal pain. 04/02/2024 continues on IV antibiotics and colchicine. Pain significantly improved .blood cultures reporting no growth after 5 days . Right foot Gram stain reported no organisms seen, anaerobic wound culture no growth after [address] completed yesterday reporting soft tissue edema throughout the right lower extremity without evidence of organizing fluid collection suggesting abscess, severe degenerative changes in the first digit metatarsal pharyngeal joint with punched-out lytic areas possibly representing underlying gout. Elevated uric acid and inflammatory markers : uric acid 7.5 CRP 3.6 ESR 42. Afebrile, WBC within normal limits. Hemoglobin 8.6, platelets 177. Potassium 3.5, supplemented. Renal function stable. Significant clinical improvement. Cleared by vascular and infectious disease for discharge. Patient will be discharged on oral antibiotics and colchicine along with allopurinol. Wound care as per vascular surgery-advised to follow-up tomorrow with Dr. Booth. DC antibiotics as per ID. Patient will be discharged home today in a stable condition with guarded prognosis. Rx given to patient for postop wedge shoe. Microbiology 03/28/24 18:08 Blood Blood Culture - Final 03/28/24 18:18 Blood Blood Culture - Final 03/30/24 10:15 Foot - Right Anaerobic Culture - Preliminary 03/30/24 10:15 Foot - Right Gram Stain - Final 03/30/24 10:15 Foot - Right Wound Culture - Final 03/28/24 17:40 Toe - Right Second Gram Stain - Final 03/28/24 17:40 Toe - Right Second Wound Culture - Final The impression and plan of care has been dictated as directed. : I performed a history and examination of this patient, discussed the same with the dictator. I agree with the dictator's note ,documented as a scribe. Any additional findings or plans will be noted. Patient Condition at Discharge: Stable Plan - Discharge Summary Discharge Rx Participant: Yes New Discharge Prescriptions: New Colchicine [Colcrys] 0.6 mg PO DAILY #30 each Menthol-Zinc Oxide Oint [Calmoseptine Ointment] 1 applic TOPICAL QID PRN each PRN Reason: Skin Irritation Losartan [Cozaar] 50 mg PO DAILY #30 tab allopurinoL [Zyloprim] See Rx Instructions .ROUTE .COMPLEX #30 tablet cefUROXime axetiL [Ceftin] 500 mg PO BID 10 Days #20 tab Continue Omeprazole 20 mg PO DAILY Levothyroxine Sodium [Synthroid] 88 mcg PO DAILY ALPRAZolam [Xanax] 0.25 mg PO BID Pravastatin Sodium 80 mg PO HS Fluticasone Propion/Salmeterol [Advair Hfa 230-21 Mcg Inhaler] 2 puff INHALATION RT-BID Ondansetron [Zofran] 4 mg PO Q4H PRN PRN Reason: Nausea And Vomiting Diphenoxylate HCl/Atropine [Lomotil 2.5-0.025 mg Tablet] 1 tab PO QID HYDROcodone/APAP 10-325MG [Norton 10-325] 1 tab PO Q4HR PRN PRN Reason: Pain Lido2%/Mdryl/[id number] 5 ml PO QID PRN PRN Reason: Pain Potassium Chloride ER [K-Dur 10] 10 meq PO DAILY Furosemide [Lasix] 20 mg PO BID Cholecalciferol (Vitamin D3) [Vitamin D3 (50 Mcg = 2000 Iu)] 50 mcg PO DAILY Discontinued Losartan Potassium [Cozaar] 100 mg PO DAILY Discharge Medication List Levothyroxine Sodium [Synthroid] 88 mcg PO DAILY 06/30/15 [History] Omeprazole 20 mg PO DAILY 06/30/15 [History] ALPRAZolam [Xanax] 0.25 mg PO BID 07/31/17 [History] Pravastatin Sodium 80 mg PO HS 08/03/20 [History] Furosemide [Lasix] 20 mg PO BID 12/06/21 [History] Potassium Chloride ER [K-Dur 10] 10 meq PO DAILY 12/06/21 [History] Fluticasone Propion/Salmeterol [Advair Hfa 230-21 Mcg Inhaler] 2 puff INHALATION RT-BID 01/24/24 [History] Ondansetron [Zofran] 4 mg PO Q4H PRN 02/12/24 [History] Cholecalciferol (Vitamin D3) [Vitamin D3 (50 Mcg = 2000 Iu)] 50 mcg PO DAILY 03/28/24 [History] Diphenoxylate HCl/Atropine [Lomotil 2.5-0.025 mg Tablet] 1 tab PO QID 03/28/24 [History] HYDROcodone/APAP 10-325MG [Norton 10-325] 1 tab PO Q4HR PRN 03/28/24 [History] Lido2%/Mdryl/[id number] 5 ml PO QID PRN 03/28/24 [History] Colchicine [Colcrys] 0.6 mg PO DAILY #30 each 04/03/24 [Rx] Losartan [Cozaar] 50 mg PO DAILY #30 tab 04/03/24 [Rx] Menthol-Zinc Oxide Oint [Calmoseptine Ointment] 1 applic TOPICAL QID PRN each 04/03/24 [Rx] allopurinoL [Zyloprim] See Rx Instructions .ROUTE .COMPLEX #30 tablet 04/03/24 [Rx] cefUROXime axetiL [Ceftin] 500 mg PO BID 10 Days #20 tab 04/03/24 [Rx] Follow up Appointment(s)/Referral(s): Ari Duke MD [STAFF PHYSICIAN] - 04/07/24 11:30 am (You will see Dr. Fisher.) Humza Booth MD [STAFF PHYSICIAN] - 04/04/24 12:00 pm Lorna Ross MD [STAFF PHYSICIAN] - 04/09/24 3:00 pm Patient Instructions/Handouts: Cefuroxime (By mouth), Allopurinol (By mouth), Colchicine (By mouth), Losartan (By mouth), Gout (GEN), Abscess (GEN) Activity/Diet/Wound Care/Special Instructions: Prescription given to patient for post-op wedge shoe. Confirm follow-up visit with oncology Leave dressing to right foot intact until follow-up appointment with Dr. Paula burch on Sunday04/04/24
[2024-04-03 13:39] VITALS: BMI 29.9
== END 2024-04-03 14:07 | disposition home or self-care (01) | DRG 603 ==
LOC: EC 16:14 → 5NMEDONC 18:18
PROVIDERS: ADMIT Family Medicine; ATTEND Family Medicine
PROC: 0J9Q0ZX Drainage of Right Foot Subcutaneous Tissue and Fascia, Open Approach, Diagnostic (ICD-10-PCS; principal; 2024-03-30)
DX: L02.611 Cutaneous abscess of right foot (principal); C15.5 Malignant neoplasm of lower third of esophagus; C79.9 Secondary malignant neoplasm of unspecified site; Z43.1 Encounter for attention to gastrostomy; K22.2 Esophageal obstruction; I11.9 Hypertensive heart disease without heart failure; D69.59 Other secondary thrombocytopenia; L03.031 Cellulitis of right toe; D64.81 Anemia due to antineoplastic chemotherapy; E03.9 Hypothyroidism, unspecified; J44.89 Other specified chronic obstructive pulmonary disease; M10.9 Gout, unspecified; K12.30 Oral mucositis (ulcerative), unspecified; E78.5 Hyperlipidemia, unspecified; F41.9 Anxiety disorder, unspecified; T45.1X5A Adverse effect of antineoplastic and immunosuppressive drugs, initial encounter; G89.29 Other chronic pain; M54.9 Dorsalgia, unspecified; K21.9 Gastro-esophageal reflux disease without esophagitis; K58.9 Irritable bowel syndrome, unspecified; M19.90 Unspecified osteoarthritis, unspecified site; R91.1 Solitary pulmonary nodule; Z79.51 Long term (current) use of inhaled steroids; Z79.890 Hormone replacement therapy; Z79.899 Other long term (current) drug therapy; Z85.43 Personal history of malignant neoplasm of ovary; Z87.891 Personal history of nicotine dependence; Z96.659 Presence of unspecified artificial knee joint; Z88.0 Allergy status to penicillin
CPT/HCPCS: 36415; 80048; 80053; 80202; 82565; 83605; 84550; 85025; 85610; 85652; 85730; 86140; 87040; 87070; 87075; 87205; 93005; 94640; 96365; 96367; 99285

== ENCOUNTER → 2024-05-20 | Outpatient (CLI) | payer MEDICARE ==
--- NOTE | 2024-05-21 12:42 | CA ---
Transthoracic Echo Report Name: Joslyn Real Age: 68 Gender: F : 1955 Exam Date: 05/20/2024 16:15 Exam Location: [facility] Ht (in): 64 Wt (lb): 158 Ordering Physician: Rusty Patterson MD Attending/Referring Phys: Workforce Manager Marycruz Brenner RDCS Procedure CPT: Indications: Z01.818 pre chemo Cardiac Hx: Technical Quality: Good Contrast 1: Total Dose (mL): Contrast 2: Total Dose (mL): MEASUREMENTS (Male / Female) Normal Values 2D ECHO LV Diastolic Diameter PLAX 6.1 cm 4.2 - 5.9 / 3.9 - 5.3 cm LV Systolic Diameter PLAX 4.4 cm IVS Diastolic Thickness 1.2 cm 0.6 - 1.0 / 0.6 - 0.9 cm LVPW Diastolic Thickness 1.1 cm 0.6 - 1.0 / 0.6 - 0.9 cm LV Relative Wall Thickness 0.4 RV Internal Dim ED PLAX 2.9 cm LA Systolic Diameter LX 4.2 cm 3.0 - 4.0 / 2.7 - 3.8 cm LA Volume 51.5 cm??? 18 - 58 / 22 - 52 cm??? LA Volume Index 28.4 cm???/m??? 16 - 28 cm???/m??? M-MODE Aortic Root Diameter MM 3.6 cm AV Cusp Separation MM 1.8 cm DOPPLER AV Peak Velocity 192.8 cm/s AV Peak Gradient 14.9 mmHg AV Mean Velocity 123.7 cm/s AV Mean Gradient 6.9 mmHg AV Velocity Time Integral 39.4 cm MV Area PHT 4.6 cm??? Mitral E Point Velocity 110.1 cm/s Mitral A Point Velocity 84.2 cm/s Mitral E to A Ratio 1.3 MV Deceleration Time 164.0 ms TR Peak Velocity 258.9 cm/s TR Peak Gradient 26.8 mmHg Right Ventricular Systolic Press 31.0 mmHg FINDINGS Left Ventricle Left ventricular ejection fraction is estimated at 55-60 %. Mild concentric LVH. No obvious regional wall motion abnormality. Global longitudinal strain estimated at -19%. (Normal -20%). Indeterminate diastolic dysfunction. Right Ventricle Normal right ventricular size. Right ventricular systolic pressure within normal limits. Right Atrium Normal right atrial size. No right atrial thrombus or mass seen. Left Atrium Mildly increased left atrial diameter. Mitral Valve Structurally normal mitral valve. Trace to mild mitral regurgitation. Aortic Valve Trileaflet aortic valve. No aortic valve stenosis or regurgitation. Aortic valve sclerosis. Tricuspid Valve Structurally normal tricuspid valve. Mild tricuspid regurgitation. Pulmonic Valve Structurally normal pulmonic valve. No pulmonic regurgitation. Pericardium No pericardial effusion. No pleural effusion. Aorta Normal size aortic root and proximal ascending aorta. CONCLUSIONS LVEF 55 to 60% Mild concentric LVH, normal LV cavity size No obvious regional wall motion abnormality Global longitudinal strain estimated at -19%. (Normal -20%) Mild left atrial dilatation No obvious valvular dysfunction Normal RV size systolic function. RVSP 31 mmHg Previewed by: Dr Ethan Etienne (Electronically Signed) Final Date: 21 May 2024 12:41
== END | disposition home or self-care (01) ==
LOC: RADECHMAIN 16:07
PROVIDERS: ATTEND Internal Medicine Hematology & Oncology
DX: Z01.818 Encounter for other preprocedural examination (principal); I51.7 Cardiomegaly
CPT/HCPCS: 93306

== ENCOUNTER 2024-06-26 11:57 | Inpatient (IN) | payer MEDICARE ==
--- NOTE | 2024-06-26 12:45 | ED ---
General Adult HPI - General Source: patient, family, RN notes reviewed <Concepción Yarbrough - Last Filed: 06/26/24 12:43> - General Source: patient, family, RN notes reviewed Limitations: no limitations <Maykel Cruz - Last Filed: 06/26/24 15:35> - General Stated complaint: Drowsy Time Seen by Provider: 06/26/24 12:15 - History of Present Illness Initial comments: Quick Note- 68-year-old female with esophageal cancer currently on chemotherapy presents emergency department for complaint of logical changes since Sunday. Patient was evaluated by her oncologist on Sunday with the symptoms and she was prescribed an additional antidepressant. Patient is currently denying chest pain, shortness of breath, headaches, heart palpitations or difficulty breathing. Family is concerned that patient has taken extra doses of her hydrocodone/acetaminophen 10/325, 120 tabs were dispensed on and she currently has 56 tablets left. (Concepción Yarbrough) Patient is a 68-year-old female presenting to the emergency department with fatigue and weakness. Patient has had some vomiting and diarrhea over the past several weeks. Patient started more oral intake and not using her PEG tube feedings as much. Patient has questionable oral intake. Patient did have 1 episode of confusion. Patient has been drowsy and sleeping more. (Maykel Cruz) - Related Data Home Medications Medication Instructions Recorded Confirmed Levothyroxine Sodium [Synthroid] 88 mcg PO DAILY 06/30/15 06/24/24 Omeprazole 20 mg PO DAILY 06/30/15 06/24/24 ALPRAZolam [Xanax] 0.25 mg PO BID 07/31/17 06/24/24 Pravastatin Sodium 80 mg PO HS 08/03/20 06/24/24 Furosemide [Lasix] 20 mg PO BID 12/06/21 06/24/24 Potassium Chloride ER [K-Dur 10] 10 meq PO DAILY 12/06/21 06/24/24 Fluticasone Propion/Salmeterol 2 puff INHALATION RT-BID 01/24/24 06/24/24 [Advair Hfa 230-21 Mcg Inhaler] Ondansetron [Zofran] 4 mg PO Q4H PRN 02/12/24 06/24/24 Diphenoxylate HCl/Atropine 1 tab PO QID 03/28/24 06/24/24 [Lomotil 2.5-0.025 mg Tablet] HYDROcodone/APAP 10-325MG [[place] 1 tab PO Q4HR PRN 03/28/24 06/24/24 10-325] Previous Rx's Medication Instructions Recorded Colchicine [Colcrys] 0.6 mg PO DAILY #30 each 04/03/24 Losartan [Cozaar] 50 mg PO DAILY #30 tab 04/03/24 allopurinoL [Zyloprim] See Rx Instructions .ROUTE 04/03/24 .COMPLEX #30 tablet Allergies Allergy/AdvReac Type Severity Reaction Status Date / Time amoxicillin Allergy Rash/Hives Verified 06/26/24 13:14 Review of Systems ROS Other: All systems not noted in ROS Statement are negative. <Concepción Yarbrough - Last Filed: 06/26/24 12:43> ROS Other: All systems not noted in ROS Statement are negative. Constitutional: Denies: fever Eyes: Denies: eye pain ENT: Denies: ear pain Respiratory: Denies: cough, dyspnea Endocrine: Reports: fatigue Gastrointestinal: Denies: abdominal pain Neurological: Reports: as per HPI, confusion <Maykel Cruz - Last Filed: 06/26/24 15:35> ROS Statement: Those systems with pertinent positive or pertinent negative responses have been documented in the HPI. Past Medical History Past Medical History: Cancer, COPD, GERD/Reflux, Hyperlipidemia, Hypertension, Osteoarthritis (OA), Pneumonia, Thyroid Disorder Additional Past Medical History / Comment(s): Currently receiving chemo for cancer reoccurence - mass inesophagus and liver. OVARIAN CANCER DX 02/2015, LAST CHEMO Sep. IBS, CHRONIC BACK PAIN, HX OF BRONCHITIS. History of Any Multi-Drug Resistant Organisms: None Reported Past Surgical History: Cholecystectomy, Hysterectomy, Joint Replacement, Orthopedic Surgery, Tubal Ligation Additional Past Surgical History / Comment(s): PORT-A-CATH RIGHT CHEST with later removal, COLONOSCOPY, EXCISION OF LIPOMA FROM ABDOMINAL WALL, LEFT FEMUR SURGERY X2, knee replacement 03/2021, EGD and [id number] placement 01/29/24. Past Anesthesia/Blood Transfusion Reactions: No Reported Reaction Additional Past Anesthesia/Blood Transfusion Reaction / Comment(s): NO COMPLICATIONS WITH BLOOD TRANSFUSION. Smoking Status: Former smoker - Past Family History Mother Family Medical History: Cancer Additional Family Medical History / Comment(s): SQUAMOUS CELL CA-NECK. Father History Unknown: Yes <EugenioearlConcepción - Last Filed: 06/26/24 12:43> General Exam <Concepción Yarbrough - Last Filed: 06/26/24 12:43> Limitations: no limitations General appearance: alert, in no apparent distress Head exam: Present: normocephalic Eye exam: Present: normal appearance, PERRL ENT exam: Present: normal oropharynx Neck exam: Present: normal inspection Respiratory exam: Present: normal lung sounds bilaterally Cardiovascular Exam: Present: regular rate, normal rhythm GI/Abdominal exam: Present: soft. Absent: tenderness Extremities exam: Present: normal inspection Neurological exam: Present: alert, oriented X3, CN II-XII intact, normal gait. Absent: motor sensory deficit Psychiatric exam: Present: normal affect, normal mood Skin exam: Present: normal color <Maykel Cruz - Last Filed: 06/26/24 15:35> - General Exam Comments Initial Comments: Visual Physical Exam Vital signs reviewed General: Well-appearing, nontoxic, no acute distress. Head: Normocephalic, atraumatic Eyes: PERRLA, EOMI ENT: Airway patent Chest: Nonlabored breathing Skin: No visual rash, normal skin tone Neuro: Alert and oriented 3 Musculoskeletal: No gross abnormalities (Concepción Yarbrough) Course Vital Signs 06/26/24 06/26/24 06/26/24 13:12 14:20 14:22 Temperature 98.0 F 97.8 F Pulse Rate 80 76 Respiratory 18 17 Rate Blood Pressure 88/50 95/49 67/41 O2 Sat by Pulse 98 97 Oximetry 06/26/24 15:22 Temperature Pulse Rate 77 Respiratory 17 Rate Blood Pressure 97/45 O2 Sat by Pulse 98 Oximetry EKG Findings - EKG Results: EKG: interpreted by ERMD (Complete right bundle branch block. Nonspecific T waves.), sinus rhythm, normal axis, normal ST/T <Maykel Cruz - Last Filed: 06/26/24 15:35> Medical Decision Making <Concepción Yarbrough - Last Filed: 06/26/24 12:43> - Lab Data Result diagrams: 06/26/24 13:11 06/26/24 13:11 <Maykel Cruz - Last Filed: 06/26/24 15:35> - Medical Decision Making I completed the quick note portion of this chart signed Concepción Yarbrough PA-C (Concepción Yarbrough) Was pt. sent in by a medical professional or institution ([facility], FORENSIC NURSE, urgent care, hospital, or group home...) When possible be specific @ -No Did you speak to anyone other than the patient for history (EMS, parent, family, police, friend...)? What history was obtained from this source @ -Family is present helps provide history including patient's history of confusion and not taking her medications appropriately Did you review nursing and triage notes (agree or disagree)? Why? @ -I reviewed and agree with nursing and triage notes Were old charts reviewed (outside hosp., previous admission, EMS record, old EKG, old radiological studies, urgent care reports/EKG's, group home records)? Report findings @ -Yes labs reviewed including renal function Differential Diagnosis (chest pain, altered mental status, abdominal pain women, abdominal pain men, vaginal bleeding, weakness, fever, dyspnea, syncope, headache, dizziness, GI bleed, back pain, seizure, CVA, palpatations, mental health, musculoskeletal)? @ -Differential Altered Mental Status: Hypoglycemia, DKA, hypercapnia, ETOH, overdose, CO poisoning, trauma, myxedema coma, HTN encephalopathy, infection, encephalitis, psychosis, intercranial hemorrhage, hepatic encephalopathy, meningitis, CVA, this is not meant to be an all-inclusive list EKG interpreted by me (3pts min.). @ -As above X-rays interpreted by me (1pt min.). @ -None done CT interpreted by me (1pt min.). @ -CT scan of the brain shows probable meningioma similar to previous U/S interpreted by me (1pt. min.). @ -None done What testing was considered but not performed or refused? (CT, X-rays, U/S, labs)? Why? @ -None What meds were considered but not given or refused? Why? @ -None Did you discuss the management of the patient with other professionals (professionals i.e. [facility]iel, FORENSIC NURSE, lab, RT, psych nurse, renal social worker, lawyer probate, teacher, information security officer, field case manager)? Give summary @ -Case was discussed with Dr. Duke, covering Dr. Moore who will admit. Was smoking cessation discussed for >3mins.? @ -No Was critical care preformed (if so, how long)? @ -No Were there social determinants of health that impacted care today? How? (Homelessness, low income, unemployed, alcoholism, drug addiction, transportation, low edu. Level, literacy, decrease access to med. care, shelter, rehab)? @ -No Was there de-escalation of care discussed even if they declined (Discuss DNR or withdrawal of care, Hospice)? DNR status @ -No What co-morbidities impacted this encounter? (DM, HTN, Smoking, COPD, CAD, Cancer, CVA, ARF, Chemo, Hep., AIDS, mental health diagnosis, sleep apnea, morbid obesity)? @ -History of metastatic esophageal cancer Was patient admitted / discharged? Hospital course, mention meds given and route, prescriptions, significant lab abnormalities, going to OR and other pertinent info. @ -Patient presents with fatigue and drowsiness questionable eating habits. Patient has acute kidney injury and hypokalemia and hypomagnesemia. Patient will be admitted with oncology consult. Admission orders written. Undiagnosed new problem with uncertain prognosis? @ -No Drug Therapy requiring intensive monitoring for toxicity (Heparin, Nitro, Insulin, Cardizem)? @ -No Were any procedures done? @ -No Diagnosis/symptom? @ -Acute kidney injury, hypomagnesemia, hypokalemia Acute, or Chronic, or Acute on Chronic? @ -, Acute, acute, acute Uncomplicated (without systemic symptoms) or Complicated (systemic symptoms)? @ -Default Side effects of treatment? @ -No Exacerbation, Progression, or Severe Exacerbation? @ -No Poses a threat to life or bodily function? How? (Chest pain, USA, SC, pneumonia, PE, COPD, DKA, ARF, appy, cholecystitis, CVA, Diverticulitis, Homicidal, Suicidal, threat to staff... and all critical care pts) @ -Threat to metabolic function (Maykel Cruz) - Lab Data Lab Results 06/26/24 06/26/24 06/26/24 Range/Units 13:11 13:11 13:16 WBC 9.7 (3.8-10.6) k/uL RBC 3.25 L (3.80-5.40) m/uL Hgb 10.5 L (11.4-16.0) gm/dL Hct 31.3 L (34.0-46.0) % MCV 96.3 (80.0-100.0) fL MCH 32.3 (25.0-35.0) pg MCHC 33.5 (31.0-37.0) g/dL RDW 18.1 H (11.5-15.5) % Plt Count 167 D (150-450) k/uL MPV 7.9 Neutrophils % 84 % Lymphocytes % 7 % Monocytes % 4 % Eosinophils % 3 % Basophils % 0 % Neutrophils # 8.1 H (1.3-7.7) k/uL Lymphocytes # 0.7 L (1.0-4.8) k/uL Monocytes # 0.4 (0-1.0) k/uL Eosinophils # 0.3 (0-0.7) k/uL Basophils # 0.0 (0-0.2) k/uL Hypochromasia Slight Anisocytosis Slight Macrocytosis Slight Sodium 140 (137-145) mmol/L Potassium 2.6 L* (3.5-5.1) mmol/L Chloride 107 (98-107) mmol/L Carbon Dioxide 18 L (22-30) mmol/L Anion Gap 15 mmol/L BUN 54 H (7-17) mg/dL Creatinine 3.28 H (0.52-1.04) mg/dL Est GFR (CKD-EPI)AfAm 16 (>60 ml/min/1.73 sqM) Est GFR (CKD-EPI)NonAf 14 (>60 ml/min/1.73 sqM) Glucose 108 H (74-99) mg/dL POC Glucose (mg/dL) 102 (70-110) mg/dL POC Glu [employer] Teacher ID Nancy Archer Calcium 7.4 L (8.4-10.2) mg/dL Magnesium 0.9 L* (1.6-2.3) mg/dL Total Bilirubin 0.8 (0.2-1.3) mg/dL AST 41 H (14-36) U/L ALT 24 (4-34) U/L Alkaline Phosphatase 211 H (38-126) U/L Total Protein 6.2 L (6.3-8.2) g/dL Albumin 3.6 (3.5-5.0) g/dL Salicylates <1.0 mg/dL Disposition <Concepción Yarbrough - Last Filed: 06/26/24 12:43> Is patient prescribed a controlled substance at d/c from ED?: No Time of Disposition: 15:35 <Maykel Cruz - Last Filed: 06/26/24 15:35> Clinical Impression: Acute kidney injury Disposition: ADMITTED IP TO THIS HOSP Referrals: Caleb Fisher Jr, [Primary Care Provider] - 1-2 days
[2024-06-26 13:18] LABS: Glucose,Whole Blood 102 mg/dL (70-110)
[2024-06-26 13:41] LABS: Anisocytosis Slight; Basophils % (A) 0 %; Eosinophils # (A) 0.3 k/uL (0-0.7); Eosinophils % (A) 3 %; HCT 31.3 % (34.0-46.0); HGB 10.5 gm/dL (11.4-16.0); Hypochromasia Slight; Lymphocytes # (A) 0.7 k/uL (1.0-4.8); Lymphocytes % (A) 7 %; MCH 32.3 pg (25.0-35.0); MCHC 33.5 g/dL (31.0-37.0); MCV 96.3 fL (80.0-100.0); Macrocytosis Slight; Mean Platelet Volume 7.9; Monocytes # (A) 0.4 k/uL (0-1.0); Monocytes % (A) 4 %; Neutrophils # (A) 8.1 k/uL (1.3-7.7); Neutrophils % (A) 84 %; RBC 3.25 m/uL (3.80-5.40); RDW 18.1 % (11.5-15.5); WBC 9.7 k/uL (3.8-10.6)
[2024-06-26 13:47] LABS: Platelet Count 167 k/uL (150-450)
--- NOTE | 2024-06-26 14:05 | CT ---
EXAMINATION TYPE: CT brain wo con DATE OF EXAM: 06/26/2024 COMPARISON: 08/03/2020 HISTORY: 68-year-old female neuro changes since 06/23. TECHNIQUE: Examination was done in axial plane without intravenous contrast. Coronal and sagittal r econstructions performed. CT DLP: 1129.5 mGycm Automated exposure control for dose reduction was used. FINDINGS: A calcified 1.2 cm extra-axial lesion along the superior left parietal convexity remains unchanged fr om 2019. Otherwise, there is no evidence of acute intracranial hemorrhage, acute ischemic changes, mass, mass -effect, or extra-axial fluid collection. There is no effacement of cerebral sulci or basal subarach noid cisterns. There is no hydrocephalus. There is no midline shift. Garcia-white matter distinction is preserved. Some lobulated mucosal thickening posterior floor of the right maxillary sinus. Moderate mucosal thic kening ethmoid air cells. Complete opacification left sphenoid sinus. Mastoid air cells well pneumati zed. Slight leftward nasal septal deviation. Orbits and globes are intact. IMPRESSION: 1. Stable calcified 1.2 cm extra-axial lesion superior left parietal convexity, likely benign meningi amol. 2. Otherwise, no acute intracranial abnormality seen. 3. Moderate chronic ethmoid sinus disease, severe in the left sphenoid sinus with complete opacificat ion. If symptomatic, consider ENT referral.
[2024-06-26 14:06] LABS: ALT 24 U/L (4-34); AST 41 U/L (14-36); African American GFR (CKD) 16 (>60 ml/min/1.73 sqM); Albumin 3.6 g/dL (3.5-5.0); Alkaline Phosphatase 211 U/L (38-126); Anion Gap 15 mmol/L; Blood Urea Nitrogen 54 mg/dL (7-17); Calcium 7.4 mg/dL (8.4-10.2); Carbon Dioxide 18 mmol/L (22-30); Chloride 107 mmol/L (98-107); Glucose 108 mg/dL (74-99); Non-African American GFR(CKD) 14 (>60 ml/min/1.73 sqM); Salicylate <1.0 mg/dL; Sodium 140 mmol/L (137-145); Total Bilirubin 0.8 mg/dL (0.2-1.3); Total Protein 6.2 g/dL (6.3-8.2)
[2024-06-26 14:23] LABS: Magnesium 0.9 mg/dL (1.6-2.3); Potassium 2.6 mmol/L (3.5-5.1)
[2024-06-26] MEDS: MAGNESIUM SULFATE-D5W PMX 1 GM in DEXTROSE/WATER 1 100ML.BAG IVPB SCH ×2 (15:10→23:13)
[2024-06-26] MEDS: SODIUM CHLORIDE 0.9% 1,000 ML IV STA (15:10)
[2024-06-26] MEDS: POTASSIUM CHLORIDE 20 MEQ in WATER FOR INJECTION 1 100ML.BAG IVPB STA (15:19)
[2024-06-26] MEDS ORDERED: Potassium Replacement Protocol 1 EACH MISC MISCELLANE PRN (15:35)
[2024-06-26] MEDS ORDERED: NALOXONE 0.4 MG/ML 1 ML VIAL IV PRN (15:36)
[2024-06-26] MEDS: SODIUM CHLORIDE 0.9% 1,000 ML IV SCH (16:16)
[2024-06-26] MEDS: MAGNESIUM OXIDE 400 MG TAB PO STA (16:17)
[2024-06-26] MEDS: PANTOPRAZOLE 40 MG/10 ML VIAL IV SCH (16:17)
[2024-06-26] MEDS ORDERED: COLCHICINE 0.6 MG EACH PO PRN (16:30)
[2024-06-26 16:45] LABS: Appearance,Urine Cloudy (Clear); Bacteria,Urine Occasional /hpf; Bilirubin,Urine Negative (Negative); Blood,Urine Negative (Negative); Color,Urine Light Yellow; Glucose,Urine (UA) Negative (Negative); Ketones,Urine Negative (Negative); Leukocyte Esterase,Urine Moderate (Negative); Mucus,Urine Rare /hpf; Nitrite,Urine Negative (Negative); PH, Urine 5.5 (5.0-8.0); Protein,Urine Trace (Negative); RBC,Urine 3 /hpf (0-5); Specific Gravity,Urine 1.015 (1.001-1.035); Squamous Epithelial Cell,Urine 12 /hpf (0-4); Urobilinogen,Urine <2.0 mg/dL (<2.0); WBC,Urine 6 /hpf (0-5)
[2024-06-26] MEDS: SODIUM CHLORIDE 0.9% 500 ML 500 ML IV STA (16:47)
[2024-06-26 17:16] LABS: Amphetamine Screen,Urine Not Detected (NotDetected); Cocaine Screen,Urine Not Detected (NotDetected); Opiate Screen,Urine Detected (NotDetected); Phencyclidine Screen,Urine Not Detected (NotDetected); Urn Cannabinoid Scrn Not Detected (NotDetected)
[2024-06-26 17:17] LABS: Barbiturate Screen,Urine Not Detected (NotDetected); Benzodiazepines Screen,Urine Detected (NotDetected); Methadone Screen, Urine Not Detected (NotDetected); Oxycodone Screen, Urine Detected (NotDetected); Tricyclic Antidepressant,Urine Not Detected (NotDetected)
[2024-06-26] MEDS: SYMBICORT 160-4.5 MCG INHALER INHALATION SCH (18:25)
[2024-06-26] MEDS ORDERED: Magnesium Replacement Protocol 1 EACH MISC MISCELLANE PRN (20:33)
[2024-06-26] MEDS: ALPRAZolam 0.25 MG TAB PO SCH (21:02)
[2024-06-26] MEDS: PRAVASTATIN SODIUM 80 MG TAB PO SCH (21:12)
[2024-06-26 21:48] LABS: Magnesium 1.5 mg/dL (1.6-2.3); Potassium 2.8 mmol/L (3.5-5.1)
[2024-06-26] MEDS: MAGNESIUM OXIDE 400 MG TAB PO SCH (22:14)
[2024-06-26] MEDS: POTASSIUM CHLORIDE ER 10 MEQ TAB.ER.PRT PO SCH (22:14)
[2024-06-26] MEDS: MIRTAZAPINE 15 MG TAB PO SCH (22:31)
[2024-06-26] MEDS: POTASSIUM BICARBONATE/CIT AC 20 MEQ TABLET.EFF NG-TUBE SCH (22:31)
[2024-06-26] MEDS: HYDROcodone/APAP 10-325MG 1 EACH TAB PO PRN (22:32)
[2024-06-27] MEDS: POTASSIUM CHLORIDE 10 MEQ in WATER FOR INJECTION 1 100ML.BAG IVPB SCH (04:45)
[2024-06-27] MEDS: DIPHENOX-ATROP 2.5-0.025 MG 1 EACH TAB PO PRN (05:04)
[2024-06-27] MEDS: ALBUTEROL NEBULIZED 2.5 MG/3 ML INHALATION PRN (08:21)
[2024-06-27 08:32] LABS: Basophils # (A) 0.03 X 10*3/uL (0.00-0.10); Basophils % (A) 0.5 %; Eosinophils # (A) 0.27 X 10*3/uL (0.04-0.35); Eosinophils % (A) 4.2 %; HCT 23.9 % (37.2-46.3); HGB 7.9 g/dL (12.0-15.0); Lymphocytes # (A) 0.73 X 10*3/uL (0.90-5.00); Lymphocytes % (A) 11.4 %; MCH 31.9 pg (27.0-32.0); MCHC 33.1 g/dL (32.0-37.0); MCV 96.4 FL (80.0-97.0); Mean Platelet Volume 10.5 FL (9.5-12.2); Monocytes # (A) 0.38 X 10*3/uL (0.20-1.00); Monocytes % (A) 5.9 %; NRBC Per 100 WBC 0 X 10*3/uL (0.00-0.01); Neutrophils # (A) 4.95 X 10*3/uL (1.80-7.70); Neutrophils % (A) 77.4 %; Platelet Count 117 X 10*3/uL (140-440); RBC 2.48 X 10*6/uL (4.10-5.20); RDW 17.3 % (11.5-14.5)
[2024-06-27 08:51] LABS: ALT 24 U/L (8-44); AST 33 U/L (13-35); Albumin/Globulin Ratio 1.43 Ratio (1.60-3.17); Alkaline Phosphatase 202 U/L (41-126); BUN/Creat Ratio 19.81 Ratio (12.00-20.00); Blood Urea Nitrogen 51.5 mg/dL (9.0-27.0); Calcium 7.6 mg/dL (8.7-10.3); Carbon Dioxide 17.9 mmol/L (21.6-31.8); Chloride 104 mmol/L (96-109); Globulin 2.1 g/dL (1.6-3.3); Glucose 109 mg/dL (70-110); Magnesium 2.3 mg/dL (1.5-2.4); Potassium 3.5 mmol/L (3.5-5.5); Sodium 137 mmol/L (135-145); Total Bilirubin 0.4 mg/dL (0.3-1.2); Total Protein 5.1 g/dL (6.2-8.2)
[2024-06-27] MEDS: PANTOPRAZOLE 40 MG TABLET PO SCH (09:10)
[2024-06-27] MEDS: LEVOTHYROXINE 88 MCG TAB PO SCH (09:13)
[2024-06-27] MEDS: MAG HYDROX/AL HYDROX/SIMETH 30 ML, diphenhydrAMINE ELIXIR 75 MG, LIDOCAINE VISCOUS 2% 3... PO SCH (09:14)
[2024-06-27] MEDS: POTASSIUM CHLORIDE 20 MEQ in WATER FOR INJECTION 1 100ML.BAG IVPB SCH (09:54)
--- NOTE | 2024-06-27 12:36 | P.NPCON ---
History of Present Illness - Reason for Consult Consult date: 06/27/24 acute renal failure - History of Present Illness Joslyn is a 68 year old female admitted 06/26 with fatigue and weakness. She has a past medical history of esophageal cancer currently on chemotherapy. She reports feeling well this morning when seen at bedside. However, family noted patient to show some signs of confusion. Patient feeds on a peg tube and drinks normally via mouth. She has been urinating normally. Patient denied fever, chills, chest pain, shortness of breath, vomiting, leg swelling. She did note some diarrhea with the use of peg tubes. Hypotension noted. The lowest systolic blood pressure was found to be in the 70s. No NSAIDs noted. Patient was maintained on cozaar, which is currently on hold. Patient is voiding, urine output not charted. Initial labs revealed patient to have DANNIELLE with an initial creatinine level of 3.28. Creatinine on 06/27 was 2.6. Previous creatinine was 0.49 on 04/03/2024. The potassium level was 2.6 on 06/26, which increased to 3.4 on 06/27. Her magnesium level was 0.9 on 06/26, increased back up to 2.3 on 06/27 after magnesium was replenished. Her urinalysis was consistent with pyuria. She denies any dysuria, pus/discharge in the urine, urinary urgency. Review of Systems Constitutional: Reports as per HPI Past Medical History Past Medical History: Cancer, COPD, GERD/Reflux, Hyperlipidemia, Hypertension, Osteoarthritis (OA), Pneumonia, Thyroid Disorder Additional Past Medical History / Comment(s): Currently receiving chemo for cancer reoccurence last chemo 06/26/24- mass in esophagus and liver. OVARIAN CANCER DX 02/2015, LAST CHEMO Sep. IBS, CHRONIC BACK PAIN, HX OF BRONCHITIS. esophogeal cancer History of Any Multi-Drug Resistant Organisms: None Reported Past Surgical History: Cholecystectomy, Hysterectomy, Joint Replacement, Orthopedic Surgery, Tubal Ligation Additional Past Surgical History / Comment(s): COLONOSCOPY, EXCISION OF LIPOMA FROM ABDOMINAL WALL, LEFT FEMUR SURGERY X2, knee replacement 03/2021, EGD and [id number] placement 01/29/24. Past Anesthesia/Blood Transfusion Reactions: No Reported Reaction Additional Past Anesthesia/Blood Transfusion Reaction / Comment(s): NO COMPLICATIONS WITH BLOOD TRANSFUSION. Smoking Status: Former smoker - Past Family History Mother Family Medical History: Cancer Additional Family Medical History / Comment(s): SQUAMOUS CELL CA-NECK. Father History Unknown: Yes Medications and Allergies Home Medications Medication Instructions Recorded Confirmed Type Levothyroxine Sodium [Synthroid] 88 mcg PO DAILY@0600 06/30/15 06/26/24 History Omeprazole 20 mg PO DAILY@0700 06/30/15 06/26/24 History ALPRAZolam [Xanax] 0.25 mg PO BID@1099,199907/31/17 06/26/24 History Pravastatin Sodium 80 mg PO HS@199908/03/20 06/26/24 History Furosemide [Lasix] 20 mg PO BID@0700,1800 12/06/21 06/26/24 History Potassium Chloride ER [K-Dur 10] 10 meq PO HS@199912/06/21 06/26/24 History Fluticasone Propion/Salmeterol 2 puff INHALATION RT-BID@0700,1800 01/24/24 06/26/24 History [Advair Hfa 230-21 Mcg Inhaler] Ondansetron [Zofran] 4 mg PO Q4H PRN 02/12/24 06/26/24 History Diphenoxylate HCl/Atropine 2 tab PO QID PRN 03/28/24 06/26/24 History [Lomotil 2.5-0.025 mg Tablet] HYDROcodone/APAP 10-325MG [[place] 1 tab PO Q6H PRN 03/28/24 06/26/24 History 10-325] Albuterol Nebulized [Ventolin 2.5 mg INHALATION Q6H PRN 06/26/24 06/26/24 History Nebulized] Albuterol Nebulized [Ventolin 2.5 mg INHALATION RT-DAILY 06/26/24 06/26/24 History Nebulized] Clarithromycin [Biaxin] 500 mg PO BID 06/26/24 06/26/24 History Colchicine [Colcrys] 0.6 mg PO DAILY PRN 06/26/24 06/26/24 History Fluconazole [Diflucan] 100 mg PO DAILY 06/26/24 06/26/24 History Loperamide [Imodium] 4 mg PO TID PRN 06/26/24 06/26/24 History Losartan Potassium [Cozaar] 50 mg PO DAILY@0700 06/26/24 06/26/24 History Magic Mouthwash 5 ml PO QID PRN 06/26/24 06/26/24 History Mirtazapine [Remeron] 7.5 mg PO HS@199906/26/24 06/26/24 History Allergies Allergy/AdvReac Type Severity Reaction Status Date / Time amoxicillin Allergy Rash/Hives Verified 06/26/24 16:08 Physical Exam Vitals: Vital Signs Temp Pulse Pulse Resp BP BP Pulse Ox 06/27/24 08:24 74 06/27/24 07:28 98.3 F 74 17 91/53 92 L 06/27/24 02:00 98.4 F 73 16 90/57 92 L 06/26/24 20:00 98.0 F 78 16 105/70 98 06/26/24 19:17 98.0 F 84 18 116/60 97 06/26/24 18:03 98.1 F 64 16 104/44 96 06/26/24 16:50 97.8 F 78 18 77/55 100 06/26/24 16:08 79 18 92/48 98 06/26/24 15:22 77 17 97/45 98 06/26/24 14:22 67/41 06/26/24 14:20 97.8 F 76 17 95/49 97 06/26/24 13:12 98.0 F 80 18 88/50 98 Intake and Output 06/26/24 06/27/24 06/27/24 22:59 06:59 14:59 Other: Voiding Method Toilet Bedside Commode # Voids 2 Weight 68.492 kg General: Alert and oriented to person, place. Not in acute distress. Cardiovascular: Regular heart rate, no murmurs Respiratory: Clear to auscultation bilaterally, no whezing/rhonchi/stridor Extremity: No lower extremity edema Neurological: Good muscle strength bilaterally UE and LE, no cerebellar dysfunction noted, normal finger to nose test. Results - Lab Results Most recent lab results Calcium 7.6 mg/dL (8.7-10.3) L 06/27/24 02:45 Magnesium 2.3 mg/dL (1.5-2.4) 06/27/24 02:45 06/27/24 02:45 06/27/24 02:45 Assessment and Plan Assessment: 1. Acute kidney injury, ATN secondary to hypotension, improving with IV hydration, losartan on hold, UA shows trace protein, no blood, WBC 6 - Initial creatinine was 3.28 on 06/26. Creatinine decreased to 2.6 on 06/27. Patient has been tolerating liquids fine. 2. Hypomagnesemia secondary to diuretics and proton pump inhibitor - Magnesium level on 06/26 was 0.9. Increased to 2.3 on 06/27. Patient on magnesium replacement protocol. 3. Hypokalemia secondary to diuretics - Patient on potassium replacement protocol. Potassium increased from 2.6 on 06/26 to 3.4 on 06/27. Lasix on hold. 4. Weakness secondary to hypokalemia and volume depletion 5. Metabolic acidosis, anion gap 15 secondary to acute kidney injury Plan: 1. Continue IV fluids 2. Continue potassium supplementation. 3. Continue magnesium supplementation. 4. Repeat labs in AM 5. Continue to avoid diuretics 6. Add sodium bicarbonate for metabolic acidosis. Thank you for the consultation. We will continue to follow this patient with during the hospitalization. Patient is seen and examined. Agree with resident's findings, assessment and plan.
[2024-06-27] MEDS: POTASSIUM CHLORIDE ER 20 MEQ TAB.ER PO SCH (13:27)
--- NOTE | 2024-06-27 13:35 | US ---
EXAMINATION TYPE: US kidneys/renal and bladder DATE OF EXAM: 06/27/2024 COMPARISON: NONE CLINICAL INDICATION: Female, 68 years old with history of dannielle; DANNIELLE EXAM MEASUREMENTS: Right Kidney: 10.1 x 4.6 x 4.5 cm Left Kidney: 10.5 x 5.1 x 3.8 cm Right Kidney: no evidence of hydronephrosis Left Kidney: no evidence of hydronephrosis Bladder: not fully distended Bilateral Jets seen: no There is no evidence for hydronephrosis at this point in time. No nephrolithiasis is seen. No eleni s are identified. The urinary bladder is anechoic. Bilateral ureteral jets are seen. IMPRESSION: No significant abnormality seen.
[2024-06-27] MEDS ORDERED: LOPERAMIDE 2 MG CAP PO PRN (13:39)
--- NOTE | 2024-06-27 14:23 | XR ---
EXAMINATION TYPE: XR chest 2V DATE OF EXAM: 06/27/2024 COMPARISON: 01/29/2024 HISTORY: Shortness of breath TECHNIQUE: Frontal and lateral views of the chest are obtained. FINDINGS: Scattered senescent parenchymal changes noted. Hyperinflation compatible with COPD. No evidence for infiltrate. No evidence for atelectasis. Heart size is stable. Mediastinal structures are stable and grossly unremarkable. No evidence for hilar prominence. Degenerative changes dorsal spine. IMPRESSION: 1. No evidence for acute pulmonary disease.
--- NOTE | 2024-06-27 14:43 | P.HPIM ---
History of Present Illness H&P Date: 06/27/24 This is a pleasant 68-year-old female with currently receiving chemotherapy for esophageal cancer, with PEG tube feedings for backup, presented to the ER with changes in LOC since the beginning of the week accompanied by fatigue ,weakness and sleeping more .reports she sees chemotherapy every other Sunday. Followed up with Dr. Patterson this past Sunday, placed on Remeron for depression. Family ex pressed concern over patient taking additional doses of her Huddy's. On 06/14/2024 120 tablets dispensed and in 12 days patient was down to 56 tablets. Patient reports this was unintentional, that she reaches for Huddy when she has back pain and did not realize she was doing this. Tylenol level 16.4, (therapeutic level 10-30). Toxicology screen detected opiates, oxycodone M benzodiazepines,Salicylates less than 1. Patient also reports that she had been on clarithromycin, felt as if she may have had a UTI so started taking at home on Sunday ,symptoms persisted and followed up with PCP on Sunday who ordered her another prescription of the same antibiotic. Currently denies any urinary s ymptoms, denies frequency, dysuria. States voiding spontaneously without difficulty. Patient also reports she has poor nutrition and decreased water intake; states her taste buds have changed. Patient reports she received the okay to proceed with oral intake approximately 1 month ago, reports she is trying to consume more oral intake and not use her PEG tube feedings due to it causes her diarrhea. Denies nausea, vomiting. Nuys abdominal pain. Denies chest pain, palpitations or shortness of breath. On admission patient, potassium 2.6, bicarb 18, BUN 54, creatinine 3.28 (baseline is 0.6), magnesium 0.9, alk phos 211, AST 41,Hemoglobin 10.5, 7.9, platelets 167, 117. Received IV fluid hydration and electrolyte supplementation in the ER. Potassium currently 3.4, magnesium 2.3 and creatinine decreased to 2.6. Brain CT reported stable calcified 1.2 cm external axial lesion superior left parietal convexity likely benign meningioma, otherwise no acute intracranial abnormality seen, moderate chronic ethmoid sinus disease severe in the left sphenoid sinus with complete loss opacification. Review of Systems ROS Statement: Those systems with pertinent positive or pertinent negative responses have been documented in the HPI. ROS Other: All systems not noted in ROS Statement are negative. Past Medical History Past Medical History: Cancer, COPD, GERD/Reflux, Hyperlipidemia, Hypertension, Osteoarthritis (OA), Pneumonia, Thyroid Disorder Additional Past Medical History / Comment(s): Currently receiving chemo for cancer reoccurence last chemo 06/26/24- mass in esophagus and liver. OVARIAN CANCER DX 02/2015, LAST CHEMO Sep. IBS, CHRONIC BACK PAIN, HX OF BRONCHITIS. esophogeal cancer History of Any Multi-Drug Resistant Organisms: None Reported Past Surgical History: Cholecystectomy, Hysterectomy, Joint Replacement, Orthopedic Surgery, Tubal Ligation Additional Past Surgical History / Comment(s): COLONOSCOPY, EXCISION OF LIPOMA FROM ABDOMINAL WALL, LEFT FEMUR SURGERY X2, knee replacement 03/2021, EGD and [id number] placement 01/29/24. Past Anesthesia/Blood Transfusion Reactions: No Reported Reaction Additional Past Anesthesia/Blood Transfusion Reaction / Comment(s): NO COMPLICATIONS WITH BLOOD TRANSFUSION. Smoking Status: Former smoker - Past Family History Mother Family Medical History: Cancer Additional Family Medical History / Comment(s): SQUAMOUS CELL CA-NECK. Father History Unknown: Yes Medications and Allergies Home Medications Medication Instructions Recorded Confirmed Type Levothyroxine Sodium [Synthroid] 88 mcg PO DAILY@0600 06/30/15 06/26/24 History Omeprazole 20 mg PO DAILY@0700 06/30/15 06/26/24 History ALPRAZolam [Xanax] 0.25 mg PO BID@1100,199907/31/17 06/26/24 History Pravastatin Sodium 80 mg PO HS@199908/03/20 06/26/24 History Furosemide [Lasix] 20 mg PO BID@0700,179912/06/21 06/26/24 History Potassium Chloride ER [K-Dur 10] 10 meq PO HS@199912/06/21 06/26/24 History Fluticasone Propion/Salmeterol 2 puff INHALATION RT-BID@699,179901/24/24 06/26/24 History [Advair Hfa 230-21 Mcg Inhaler] Ondansetron [Zofran] 4 mg PO Q4H PRN 02/12/24 06/26/24 History Diphenoxylate HCl/Atropine 2 tab PO QID PRN 03/28/24 06/26/24 History [Lomotil 2.5-0.025 mg Tablet] HYDROcodone/APAP 10-325MG [[place]dy 1 tab PO Q6H PRN 03/28/24 06/26/24 History 10-325] Albuterol Nebulized [Ventolin 2.5 mg INHALATION Q6H PRN 06/26/24 06/26/24 History Nebulized] Albuterol Nebulized [Ventolin 2.5 mg INHALATION RT-DAILY 06/26/24 06/26/24 History Nebulized] Clarithromycin [Biaxin] 500 mg PO BID 06/26/24 06/26/24 History Colchicine [Colcrys] 0.6 mg PO DAILY PRN 06/26/24 06/26/24 History Fluconazole [Diflucan] 100 mg PO DAILY 06/26/24 06/26/24 History Loperamide [Imodium] 4 mg PO TID PRN 06/26/24 06/26/24 History Losartan Potassium [Cozaar] 50 mg PO DAILY@0706/26/24 06/26/24 History Magic Mouthwash 5 ml PO QID PRN 06/26/24 06/26/24 History Mirtazapine [Remeron] 7.5 mg PO HS@199906/26/24 06/26/24 History Allergies Allergy/AdvReac Type Severity Reaction Status Date / Time amoxicillin Allergy Rash/Hives Verified 06/26/24 16:08 Physical Exam Vitals: Vital Signs Temp Pulse Pulse Resp BP BP Pulse Ox 06/27/24 07:28 98.3 F 74 17 91/53 92 L 06/27/24 02:00 98.4 F 73 16 90/57 92 L 06/26/24 20:00 98.0 F 78 16 105/70 98 06/26/24 19:17 98.0 F 84 18 116/60 97 06/26/24 18:03 98.1 F 64 16 104/44 96 06/26/24 16:50 97.8 F 78 18 77/55 100 06/26/24 16:08 79 18 92/48 98 06/26/24 15:22 77 17 97/45 98 06/26/24 14:22 67/41 06/26/24 14:20 97.8 F 76 17 95/49 97 06/26/24 13:12 98.0 F 80 18 88/50 98 Intake and Output 06/26/24 06/27/24 06/27/24 22:59 06:59 14:59 Other: Voiding Method Toilet Bedside Commode # Voids 2 Weight 68.492 kg GENERAL: Alert and oriented x 3, sitting up in bed, visiting with family at bedside, no acute distress. HEAD: Atraumatic, normocephalic. NECK: Supple, no JVD LUNGS: Unlabored, equal air entry, clear to auscultation, no wheezes rales or rhonchi. HEART: Regular rate and rhythm without murmurs, rubs or gallops.S1S2 Normal ABDOMEN: Soft, nontender, normoactive bowel sounds. No guarding, no rebound. No masses appreciated. PEG tube capped. EXTREMITIES:no edema. No clubbing or cyanosis. NEUROLOGICAL: Cranial nerves II through XII grossly intact. Normal speech, no rmal gait. SKIN: Warm, Dry, normal turgor, no rashes or lesions noted. Results CBC & Chem 7: 06/27/24 02:45 06/27/24 02:45 Labs: Abnormal Lab Results - Last 24 Hours (Table) 06/26/24 06/26/24 06/26/24 Range/Units 13:11 13:11 13:11 RBC 3.25 L (3.80-5.40) m/uL Hgb 10.5 L (11.4-16.0) gm/dL Hct 31.3 L (34.0-46.0) % RDW 18.1 H (11.5-15.5) % Neutrophils # 8.1 H (1.3-7.7) k/uL Lymphocytes # 0.7 L (1.0-4.8) k/uL Potassium 2.6 L* (3.5-5.1) mmol/L Carbon Dioxide 18 L (22-30) mmol/L BUN 54 H (7-17) mg/dL Creatinine 3.28 H (0.52-1.04) mg/dL Glucose 108 H (74-99) mg/dL Calcium 7.4 L (8.4-10.2) mg/dL Magnesium 0.9 L* (1.6-2.3) mg/dL AST 41 H (14-36) U/L Alkaline Phosphatase 211 H (38-126) U/L Total Protein 6.2 L (6.3-8.2) g/dL Urine Appearance Cloudy H (Clear) Urine Protein Trace H (Negative) Ur Leukocyte Esterase Moderate H (Negative) Urine WBC 6 H (0-5) /hpf Ur Squamous Epith Cells 12 H (0-4) /hpf Urine Bacteria Occasional H (None) /hpf Urine Mucus Rare H (None) /hpf Urine Opiates Screen Detected H (NotDetected) Ur Oxycodone Screen Detected H (NotDetected) U Benzodiazepines Scrn Detected H (NotDetected) 06/26/24 06/27/24 Range/Units 20:37 02:45 RBC (3.80-5.40) m/uL Hgb (11.4-16.0) gm/dL Hct (34.0-46.0) % RDW (11.5-15.5) % Neutrophils # (1.3-7.7) k/uL Lymphocytes # (1.0-4.8) k/uL Potassium 2.8 L 3.4 L (3.5-5.1) mmol/L Carbon Dioxide (22-30) mmol/L BUN (7-17) mg/dL Creatinine (0.52-1.04) mg/dL Glucose (74-99) mg/dL Calcium (8.4-10.2) mg/dL Magnesium 1.5 L (1.6-2.3) mg/dL AST (14-36) U/L Alkaline Phosphatase (38-126) U/L Total Protein (6.3-8.2) g/dL Urine Appearance (Clear) Urine Protein (Negative) Ur Leukocyte Esterase (Negative) Urine WBC (0-5) /hpf Ur Squamous Epith Cells (0-4) /hpf Urine Bacteria (None) /hpf Urine Mucus (None) /hpf Urine Opiates Screen (NotDetected) Ur Oxycodone Screen (NotDetected) U Benzodiazepines Scrn (NotDetected) Thrombosis Risk Factor Assmnt - Choose All That Apply Any of the Below Risk Factors Present?: No Other Risk Factors: Yes Each Risk Factor Represents 2 Points: Age 61-74 years Other congenital or acquired thrombophilia - If yes, enter type in comment: No Thrombosis Risk Factor Assessment Total Risk Factor Score: 2 Thrombosis Risk Factor Assessment Level: Low Risk Assessment and Plan Assessment: Acute renal failure, ATN, multifactorial secondary to hypotension, poor oral intake, medications-ARB placed on hold Metabolic acidosis Hypotension Hypokalemia Hypomagnesemia Generalized weakness secondary to dehydration, electrolyte imbalance and renal failure Acute metabolic, toxic encephalopathy secondary to all the above Decreased appetite secondary to taste bud changes, multifactorial including chemotherapy, medications, clarithromycin Depression, recently prescribed additional antidepressant. Family expresses concerns that patient is taken additional doses of Huddy's. On 720 patient was prescribed 120 Huddy's and yesterday when they counted her tablets patient only had 56 left. Esophageal cancer Asthma, chronic, secondary to the above, stable Hypothyroidism Hypertension Hypokalemia Moderate chronic ethmoid sinus disease severe in the left sphenoid sinus with complete loss opacification, incidental finding on CT, outpatient follow-up with ENT Plan: Continue on current medication using ,monitoring and symptomatic treatment. Maintain IV fluid hydration. Sodium bicarb. Potassium and magnesium supplementation as per replacement protocols. nephrology consult initiated. Avoid all nephrotoxins. Losartan placed on hold. Close monitoring of blood pressures. Close monitoring of renal function, electrolytes with repeat labs ordered for a.m. dietitian consult initiated. Chest x-ray ordered, secondary to drop in O2 sat to 92% from 98%, plus ruling out aspiration, the lungs clear at this time. Increase ambulation as tolerated. The impression and plan of care has been dictated as directed. : I performed a history and examination of this patient, discussed the same with the dictator. I agree with the dictator's note ,documented as a scribe. Any additional findings or plans will be noted.
[2024-06-27 15:07] VITALS: BMI 25.9
[2024-06-27] MEDS: SALT AND SODA MOUTHWASH 1,000 ML PO SCH (16:32)
[2024-06-27] MEDS: MAG HYDROX/AL HYDROX/SIMETH 30 ML, LIDOCAINE VISCOUS 2% 30 ML, diphenhydrAMINE ELIXIR 7... PO SCH (18:13)
--- NOTE | 2024-06-27 20:17 | P.CONS ---
History of Present Illness - Reason for Consult Consult date: 06/27/24 hx esophageal cancer Requesting physician: Maykel Cruz - Chief Complaint weakness, confusion - History of Present Illness Ms. Real is a pleasant 68-year-old female with multiple comorbidities including history of ovarian cancer status post resection and chemotherapy and more recently diagnosed with distal esophageal cancer, metastatic, and was started on palliative chemotherapy with FOLFOX and Herceptin completing 9 cycles. Due to intolerance, her regimen was changed to Herceptin and 5FU infusion only, and completed cycle 1 on 06/24/24. Patient presented to the emergency room for progressive weakness and confusion. Family states 5 days ago patient began experiencing intermittent confusion that began to worsen 3 days ago causing family to bring patient in for further evaluation. On admission CT brain without contrast showed stable calcified 1.2 cm extra-axial lesion superior left parietal convexity, likely benign meningioma. Otherwise no acute intracranial abnormality seen. Urinalysis showing possible UTI likely contaminated. Labs showed DANNIELLE with creatinine 3.28, GFR 14, BUN 54. Today kidney function slowly improving with hydration, creatinine 2.6, GFR 20. Patient was experiencing n/v and diarrhea prior to admit. Patient also was noted to have hypomagnesia and hypokalemia with magnesium of 0.9, potassium 2.6. They have subsequently been replaced. Family states patient may have been taking too much of her [place], she was prescribed 120 tablets on June 14 and only had 56 tablets left upon admission and is only prescribed [place] every 6 hours as needed. Of note she was also started on Remeron at last clinic follow-up and was instructed to take 7.5 mg nightly for insomnia. Family states that she started medication Sunday night but increasing confusion started prior to taking medication. CBC on admission showed WBC 9.7, hemoglobin 10.5, platelets 167,000. At today's visit patient reports feeling improved. She is A&O x 3 and is answering questions appropriately. She states she was able to eat breakfast is experiencing no nausea or vomiting. PEG feedings have been placed and on hold due to diarrhea, currently on a soft food diet. She had 1 episode of diarrhea earlier this morning. Antidiarrheals have been ordered. Patient is afebrile, BP soft. vitals otherwise stable. Review of Systems 10 point ROS is negative except as stated in the HPI Past Medical History Past Medical History: Cancer, COPD, GERD/Reflux, Hyperlipidemia, Hypertension, Osteoarthritis (OA), Pneumonia, Thyroid Disorder Additional Past Medical History / Comment(s): Currently receiving chemo for cancer reoccurence last chemo 06/26/24- mass in esophagus and liver. OVARIAN CANCER DX 02/2015, LAST CHEMO Sep. IBS, CHRONIC BACK PAIN, HX OF BRONCHITIS. esophogeal cancer History of Any Multi-Drug Resistant Organisms: None Reported Past Surgical History: Cholecystectomy, Hysterectomy, Joint Replacement, Orthopedic Surgery, Tubal Ligation Additional Past Surgical History / Comment(s): COLONOSCOPY, EXCISION OF LIPOMA FROM ABDOMINAL WALL, LEFT FEMUR SURGERY X2, knee replacement 03/2021, EGD and [id number] placement 01/29/24. Past Anesthesia/Blood Transfusion Reactions: No Reported Reaction Additional Past Anesthesia/Blood Transfusion Reaction / Comm: NO COMPLICATIONS WITH BLOOD TRANSFUSION. Smoking Status: Former smoker - Past Family History Mother Family Medical History: Cancer Additional Family Medical History / Comment(s): SQUAMOUS CELL CA-NECK. Father History Unknown: Yes Medications and Allergies Home Medications Medication Instructions Recorded Confirmed Type Levothyroxine Sodium [Synthroid] 88 mcg PO DAILY@0600 06/30/15 06/26/24 History Omeprazole 20 mg PO DAILY@0700 06/30/15 06/26/24 History ALPRAZolam [Xanax] 0.25 mg PO BID@1099,199907/31/17 06/26/24 History Pravastatin Sodium 80 mg PO HS@199908/03/20 06/26/24 History Furosemide [Lasix] 20 mg PO BID@0700,1800 12/06/21 06/26/24 History Potassium Chloride ER [K-Dur 10] 10 meq PO HS@199912/06/21 06/26/24 History Fluticasone Propion/Salmeterol 2 puff INHALATION RT-BID@0700,1800 01/24/24 06/26/24 History [Advair Hfa 230-21 Mcg Inhaler] Ondansetron [Zofran] 4 mg PO Q4H PRN 02/12/24 06/26/24 History Diphenoxylate HCl/Atropine 2 tab PO QID PRN 03/28/24 06/26/24 History [Lomotil 2.5-0.025 mg Tablet] HYDROcodone/APAP 10-325MG [[place] 1 tab PO Q6H PRN 03/28/24 06/26/24 History 10-325] Albuterol Nebulized [Ventolin 2.5 mg INHALATION Q6H PRN 06/26/24 06/26/24 History Nebulized] Albuterol Nebulized [Ventolin 2.5 mg INHALATION RT-DAILY 06/26/24 06/26/24 History Nebulized] Clarithromycin [Biaxin] 500 mg PO BID 06/26/24 06/26/24 History Colchicine [Colcrys] 0.6 mg PO DAILY PRN 06/26/24 06/26/24 History Fluconazole [Diflucan] 100 mg PO DAILY 06/26/24 06/26/24 History Loperamide [Imodium] 4 mg PO TID PRN 06/26/24 06/26/24 History Losartan Potassium [Cozaar] 50 mg PO DAILY@0700 06/26/24 06/26/24 History Magic Mouthwash 5 ml PO QID PRN 06/26/24 06/26/24 History Mirtazapine [Remeron] 7.5 mg PO HS@199906/26/24 06/26/24 History Allergies Allergy/AdvReac Type Severity Reaction Status Date / Time amoxicillin Allergy Rash/Hives Verified 06/26/24 16:08 Physical Exam Vitals: Vital Signs Temp Pulse Pulse Resp BP BP Pulse Ox 06/27/24 08:24 74 06/27/24 07:28 98.3 F 74 17 91/53 92 L 06/27/24 02:00 98.4 F 73 16 90/57 92 L 06/26/24 20:00 98.0 F 78 16 105/70 98 06/26/24 19:17 98.0 F 84 18 116/60 97 06/26/24 18:03 98.1 F 64 16 104/44 96 06/26/24 16:50 97.8 F 78 18 77/55 100 06/26/24 16:08 79 18 92/48 98 06/26/24 15:22 77 17 97/45 98 06/26/24 14:22 67/41 06/26/24 14:20 97.8 F 76 17 95/49 97 06/26/24 13:12 98.0 F 80 18 88/50 98 Intake and Output 0806/27/24 06/27/24 22:59 06:59 14:59 Other: Voiding Method Toilet Bedside Commode # Voids 2 Weight 68.492 kg - Constitutional General appearance: average body habitus, no acute distress - EENT mucositis noted Eyes: anicteric sclerae, EOMI ENT: hearing grossly normal - Respiratory Respiratory: bilateral: CTA - Cardiovascular Rhythm: regular - Integumentary Integumentary: no cyanotic, no jaundiced - Neurologic no focal deficits, A&O x 3 - Psychiatric Psychiatric: A&O x's 3 Results CBC & Chem 7: 06/27/24 02:45 06/27/24 02:45 Labs: Abnormal Lab Results - Last 24 Hours (Table) 06/26/24 06/26/24 06/26/24 Range/Units 13:11 13:11 13:11 RBC 3.25 L (3.80-5.40) m/uL Hgb 10.5 L (11.4-16.0) gm/dL Hct 31.3 L (34.0-46.0) % RDW 18.1 H (11.5-15.5) % Plt Count (140-440) X 10*3/uL Neutrophils # 8.1 H (1.3-7.7) k/uL Lymphocytes # 0.7 L (1.0-4.8) k/uL Potassium 2.6 L* (3.5-5.1) mmol/L Carbon Dioxide 18 L (22-30) mmol/L Anion Gap (4.00-12.00) mmol/L BUN 54 H (7-17) mg/dL Creatinine 3.28 H (0.52-1.04) mg/dL Est GFR (CKD-EPI) (>=60) Glucose 108 H (74-99) mg/dL Calcium 7.4 L (8.4-10.2) mg/dL Magnesium 0.9 L* (1.6-2.3) mg/dL AST 41 H (14-36) U/L Alkaline Phosphatase 211 H (38-126) U/L Total Protein 6.2 L (6.3-8.2) g/dL Albumin (3.8-4.9) g/dL Albumin/Globulin Ratio (1.60-3.17) Ratio Urine Appearance Cloudy H (Clear) Urine Protein Trace H (Negative) Ur Leukocyte Esterase Moderate H (Negative) Urine WBC 6 H (0-5) /hpf Ur Squamous Epith Cells 12 H (0-4) /hpf Urine Bacteria Occasional H (None) /hpf Urine Mucus Rare H (None) /hpf Urine Opiates Screen Detected H (NotDetected) Ur Oxycodone Screen Detected H (NotDetected) U Benzodiazepines Scrn Detected H (NotDetected) 06/26/24 06/27/24 06/27/24 Range/Units 20:37 02:45 02:45 RBC 2.48 L (3.80-5.40) m/uL Hgb 7.9 L (11.4-16.0) gm/dL Hct 23.9 L (34.0-46.0) % RDW 17.3 H (11.5-15.5) % Plt Count 117 L (140-440) X 10*3/uL Neutrophils # (1.3-7.7) k/uL Lymphocytes # 0.73 L (1.0-4.8) k/uL Potassium 2.8 L (3.5-5.1) mmol/L Carbon Dioxide 17.9 L (22-30) mmol/L Anion Gap 15.10 H (4.00-12.00) mmol/L BUN 51.5 H (7-17) mg/dL Creatinine 2.6 H (0.52-1.04) mg/dL Est GFR (CKD-EPI) 20 L (>=60) Glucose (74-99) mg/dL Calcium 7.6 L (8.4-10.2) mg/dL Magnesium 1.5 L (1.6-2.3) mg/dL AST (14-36) U/L Alkaline Phosphatase 202 H (38-126) U/L Total Protein 5.1 L (6.3-8.2) g/dL Albumin 3.0 L (3.8-4.9) g/dL Albumin/Globulin Ratio 1.43 L (1.60-3.17) Ratio Urine Appearance (Clear) Urine Protein (Negative) Ur Leukocyte Esterase (Negative) Urine WBC (0-5) /hpf Ur Squamous Epith Cells (0-4) /hpf Urine Bacteria (None) /hpf Urine Mucus (None) /hpf Urine Opiates Screen (NotDetected) Ur Oxycodone Screen (NotDetected) U Benzodiazepines Scrn (NotDetected) 06/27/24 Range/Units 02:45 RBC (3.80-5.40) m/uL Hgb (11.4-16.0) gm/dL Hct (34.0-46.0) % RDW (11.5-15.5) % Plt Count (140-440) X 10*3/uL Neutrophils # (1.3-7.7) k/uL Lymphocytes # (1.0-4.8) k/uL Potassium 3.4 L (3.5-5.1) mmol/L Carbon Dioxide (22-30) mmol/L Anion Gap (4.00-12.00) mmol/L BUN (7-17) mg/dL Creatinine (0.52-1.04) mg/dL Est GFR (CKD-EPI) (>=60) Glucose (74-99) mg/dL Calcium (8.4-10.2) mg/dL Magnesium (1.6-2.3) mg/dL AST (14-36) U/L Alkaline Phosphatase (38-126) U/L Total Protein (6.3-8.2) g/dL Albumin (3.8-4.9) g/dL Albumin/Globulin Ratio (1.60-3.17) Ratio Urine Appearance (Clear) Urine Protein (Negative) Ur Leukocyte Esterase (Negative) Urine WBC (0-5) /hpf Ur Squamous Epith Cells (0-4) /hpf Urine Bacteria (None) /hpf Urine Mucus (None) /hpf Urine Opiates Screen (NotDetected) Ur Oxycodone Screen (NotDetected) U Benzodiazepines Scrn (NotDetected) CT Scan - head: report reviewed Assessment and Plan (1) Acute kidney injury Current Visit: Yes Status: Acute Priority: High Code(s): N17.9 - ACUTE KIDNEY FAILURE, UNSPECIFIED SNOMED Code(s): 77484465 (2) Dehydration Current Visit: Yes Status: Acute Priority: High Code(s): E86.0 - DEHYDRATION SNOMED Code(s): 17243561 (3) Esophageal adenocarcinoma Current Visit: Yes Status: Acute Priority: High Code(s): C15.9 - MALIGNANT NEOPLASM OF ESOPHAGUS, UNSPECIFIED SNOMED Code(s): 443919797 Plan: DANNIELLE, dehydration, confusion: Presented to the emergency room for progressive weakness and confusion over the last 5 days. Also experiencing n/v/d prior to admit. Family also states pt may have been taking too much of her pain medications -On admission CT brain without contrast showed stable calcified 1.2 cm extra- axial lesion superior left parietal convexity, likely benign meningioma. Otherwise no acute intracranial abnormality seen. -Labs showed DANNIELLE with creatinine 3.28, GFR 14, BUN 54. Today kidney function slowly improving with hydration, creatinine 2.6, GFR 20. Also noted to have hypomagnesia and hypokalemia with magnesium of 0.9, potassium 2.6. They have subsequently been replaced. -Confusion likely due to acute metabolic encephalopathy, possibly exacerbated by overuse of medications -Symptoms improving with hydration, and electrolyte replacement -Antidiarrheals ordered. Tube feeding held Mucositis: -KOOLs solution and salt and soda rinses ordered Metastatic esophageal adenocarcinoma: -Started on palliative chemotherapy with FOLFOX and Herceptin completing 9 cycles. Due to intolerance, her regimen was changed to Herceptin and 5FU infusion only, and completed cycle 1 on 06/24/24 -Treatment will be on hold until pt acutely recovers Doctor attests: I performed a history and physical examination of this patient, developed impression and plan of care. Discussed with dictator. I agree with dictators note, documented as a scribe.
[2024-06-27] MEDS: SODIUM BICARBONATE TAB 650 MG TAB PO SCH (21:04)
[2024-06-28 04:47] LABS: African American GFR (CKD) 69 (>60 ml/min/1.73 sqM); Anion Gap 5 mmol/L; Blood Urea Nitrogen 31 mg/dL (7-17); Calcium 8.8 mg/dL (8.4-10.2); Carbon Dioxide 18 mmol/L (22-30); Chloride 115 mmol/L (98-107); Glucose 109 mg/dL (74-99); Non-African American GFR(CKD) 60 (>60 ml/min/1.73 sqM); Potassium 3.6 mmol/L (3.5-5.1); Sodium 138 mmol/L (137-145)
[2024-06-28] MEDS: ONDANSETRON 4 MG/2 ML VIAL IVP PRN (11:10)
[2024-06-28 11:38] LABS: Basophils # (A) 0.02 X 10*3/uL (0.00-0.10); Basophils % (A) 0.4 %; Eosinophils % (A) 4.5 %; HCT 22.5 % (37.2-46.3); HGB 7.5 g/dL (12.0-15.0); Lymphocytes % (A) 15.7 %; MCH 32.2 pg (27.0-32.0); MCHC 33.3 g/dL (32.0-37.0); MCV 96.6 FL (80.0-97.0); Mean Platelet Volume 9.7 FL (9.5-12.2); Monocytes # (A) 0.23 X 10*3/uL (0.20-1.00); Monocytes % (A) 5.2 %; NRBC Per 100 WBC 0 X 10*3/uL (0.00-0.01); Neutrophils # (A) 3.27 X 10*3/uL (1.80-7.70); Neutrophils % (A) 73.5 %; Platelet Count 109 X 10*3/uL (140-440); RBC 2.33 X 10*6/uL (4.10-5.20); RDW 17.4 % (11.5-14.5); WBC 4.45 X 10*3/uL (4.50-10.00)
--- NOTE | 2024-06-28 13:07 | P.PN ---
Subjective This is a pleasant 68-year-old female with currently receiving chemotherapy for esophageal cancer, with PEG tube feedings for backup, presented to the ER with changes in LOC since the beginning of the week accompanied by fatigue ,weakness and sleeping more .reports she sees chemotherapy every other Sunday. Followed up with Dr. Patterson this past Sunday, placed on Remeron for depression. Family expressed concern over patient taking additional doses of her [place]'s. On 06/14/2024 120 tablets dispensed and in 12 days patient was down to 56 tablets. Patient reports this was unintentional, that she reaches for [place] when she has back pain and did not realize she was doing this. Tylenol level 16.4, (therapeutic level 10-30). Toxicology screen detected opiates, oxycodone M benzodiazepines,Salicylates less than 1. Patient also reports that she had been on clarithromycin, felt as if she may have had a UTI so started taking at home on Sunday ,symptoms persisted and followed up with PCP on Sunday who ordered her another prescription of the same antibiotic. Currently denies any urinary symptoms, denies frequency, dysuria. States voiding spontaneously without difficulty. Patient also reports she has poor nutrition and decreased water intake; states her taste buds have changed. Patient reports she received the okay to proceed with oral intake approximately 1 month ago, reports she is trying to consume more oral intake and not use her PEG tube feedings due to it causes her diarrhea. Denies nausea, vomiting. Nuys abdominal pain. Denies chest pain, palpitations or shortness of breath. On admission patient, potassium 2.6, bicarb 18, BUN 54, creatinine 3.28 (baseline is 0.6), magnesium 0.9, alk phos 211, AST 41,Hemoglobin 10.5, 7.9, platelets 167, 117. Received IV fluid hydration and electrolyte supplementation in the ER. Potassium currently 3.4, magnesium 2.3 and creatinine decreased to 2.6. Brain CT reported stable calcified 1.2 cm external axial lesion superior left parietal convexity likely benign meningioma, otherwise no acute intracranial abnormality seen, moderate chronic ethmoid sinus disease severe in the left sphenoid sinus with complete loss opacification. June 28, 2024: Patient is reevaluated today. Vital signs are stable. She is 95% on room air. Afebrile. Labs now show a hemoglobin 7.5. BUN is now 31 and creatinine is 0.98 which is much improved GFR is 60. Potassium magnesium are now normalized. Family reports some gurgling after oral intake. The nurse did stop her orals and started tube feeds made her n.p.o. He is currently tolerating 25 cc an hour. Goal of 40 cc an hour. Discussed with patient that most likely have to go home with this until seen by speech therapy as an o utpatient. She denies any chest pains pressure shortness of breath nausea or vomiting. She says her ongoing sore throat. She is using Magic mouthwash as needed for this. Objective - Vital Signs Vital signs: Vital Signs Temp 97.9 F 06/28/24 07:31 Pulse 69 06/28/24 07:31 Resp 18 06/28/24 07:31 BP 122/69 06/28/24 07:31 Pulse Ox 95 06/28/24 07:31 FiO2 Intake & Output 06/27/24 06/28/24 06/28/24 18:59 06:59 18:59 Intake Total 1000 Balance 1000 Weight 68.492 kg Intake: Oral 1000 Other: Voiding Method Toilet Toilet Toilet Bedside Commode Bedside Commode Bedside Commode # Voids 1 - Exam GENERAL: Alert and oriented x 3, sitting up in bed, family at bedside, no acute distress HEAD: Atraumatic, normocephalic. NECK: Supple, no JVD LUNGS: Clear to auscultation bilaterally no wheezes rales or crackles HEART: Regular rate and rhythm without murmurs, rubs or gallops.S1S2 Normal ABDOMEN: Soft, nontender, normoactive bowel sounds. No guarding, no rebound. No masses appreciated. PEG tube in place with tube feeds currently 25 cc/h, Florencio tube is clean dry intact EXTREMITIES:no edema. No clubbing or cyanosis. NEUROLOGICAL: Cranial nerves II through XII grossly intact. Normal speech, normal gait. SKIN: Warm, Dry, normal turgor, no rashes or lesions noted. - Labs CBC & Chem 7: 06/28/24 03:59 06/28/24 03:59 Labs: Abnormal Lab Results - Last 24 Hours (Table) 06/28/24 06/28/24 Range/Units 03:59 03:59 WBC 4.45 L (4.50-10.00) X 10*3/uL RBC 2.33 L (4.10-5.20) X 10*6/uL Hgb 7.5 L (12.0-15.0) g/dL Hct 22.5 L (37.2-46.3) % MCH 32.2 H (27.0-32.0) pg RDW 17.4 H (11.5-14.5) % Plt Count 109 L (140-440) X 10*3/uL Lymphocytes # 0.70 L (0.90-5.00) X 10*3/uL Chloride 115 H (98-107) mmol/L Carbon Dioxide 18 L (22-30) mmol/L BUN 31 H (7-17) mg/dL Glucose 109 H (74-99) mg/dL Assessment and Plan Plan: Acute renal failure, ATN, multifactorial secondary to hypotension, poor oral intake,: Resolved, losartan is on hold. Metabolic acidosis: Resolving, nephrology is seeing, she is now on bicarbonate Hypotension: Resolved Hypokalemia: Resolved recheck in a.m. Hypomagnesemia: Resolved recheck in a.m. Recent diarrhea possibly related to tube feeds: Loperamide is ordered as needed, this is resolved. Generalized weakness secondary to dehydration, electrolyte imbalance and renal failure: Improved Acute metabolic, toxic encephalopathy secondary to all the above: Resolved most likely related to that and [place] for pain Decreased appetite secondary to taste bud changes, multifactorial including chemotherapy, medications, clarithromycin: Improved Depression, recently prescribed additional antidepressant of mirtazapine Anxiety: Patient has as needed alprazolam ordered Esophageal cancer: Oncology is on consult Asthma, chronic, secondary to the above, stable Hypothyroidism: Continue levothyroxine Hypertension: Losartan is on hold, will continue to monitor Hyperlipidemia: Continue pravastatin. Moderate chronic ethmoid sinus disease severe in the left sphenoid sinus with complete loss opacification, incidental finding on CT, outpatient follow-up with ENT She is improved her tube feeds are now at goal and she is not tolerating orals at this time we will have her remain n.p.o. except for ice chips, increase her tube feeds to goal and expect discharge tomorrow if her electrolytes remained stable.
--- NOTE | 2024-06-28 18:01 | P.PN ---
Subjective Patient is seen for follow-up for acute kidney injury. Renal function has improved. Serum creatinine is down to 0.9 mg/dL. Maintained on IV fluids. No significant complaints today. Trying to increase oral intake. Maintained on tube feeds due to underlying esophageal cancer. Objective - Vital Signs Vital signs: Vital Signs Temp 98.0 F 06/28/24 13:43 Pulse 76 06/28/24 13:43 Resp 17 06/28/24 13:43 BP 120/69 06/28/24 13:43 Pulse Ox 94 L 06/28/24 13:43 FiO2 Intake & Output 06/27/24 06/28/24 06/28/24 18:59 06:59 18:59 Intake Total 1000 120 Output Total 125 Balance 1000 -5 Weight 68.492 kg 70 kg Intake: Oral 1000 120 Output: Urine 125 Other: Voiding Method Toilet Toilet Toilet Bedside Commode Bedside Commode Bedside Commode # Voids 1 - Exam Patient is awake, comfortable, no acute distress. Examination of the heart S1 and S2 Examination of the lungs bilateral breath sounds are heard Abdomen is soft nontender Examination of lower extremities shows no significant edema. FIRST LEVELER exam grossly intact - Labs CBC & Chem 7: 06/28/24 03:59 06/28/24 03:59 Labs: Abnormal Lab Results - Last 24 Hours (Table) 06/28/24 06/28/24 Range/Units 03:59 03:59 WBC 4.45 L (4.50-10.00) X 10*3/uL RBC 2.33 L (4.10-5.20) X 10*6/uL Hgb 7.5 L (12.0-15.0) g/dL Hct 22.5 L (37.2-46.3) % MCH 32.2 H (27.0-32.0) pg RDW 17.4 H (11.5-14.5) % Plt Count 109 L (140-440) X 10*3/uL Lymphocytes # 0.70 L (0.90-5.00) X 10*3/uL Chloride 115 H (98-107) mmol/L Carbon Dioxide 18 L (22-30) mmol/L BUN 31 H (7-17) mg/dL Glucose 109 H (74-99) mg/dL Assessment and Plan Assessment: 1. Acute kidney injury, ATN secondary to hypotension, improving with IV hydration, losartan on hold, UA shows trace protein, no blood, WBC 6 - Initial creatinine was 3.28 on admission and decreased to 0.9 mg/dL.. . Patient has been tolerating liquids. Also maintained on tube feeding. 2. Hypomagnesemia secondary to diuretics and proton pump inhibitor - Magnesium level on 06/26 was 0.9. Increased to 2.3 on 06/27. Patient on magnesium replacement protocol. 3. Hypokalemia secondary to diuretics -status post replacement 4. Weakness secondary to hypokalemia and volume depletion 5. Metabolic acidosis, anion gap 15 secondary to acute kidney injury Plan: Continue IV fluids. Continue with oral sodium bicarb Continue to encourage increased oral intake. Repeat labs in a.m.
[2024-06-29 09:37] LABS: Basophils # (A) 0.01 X 10*3/uL (0.00-0.10); Basophils % (A) 0.3 %; Eosinophils # (A) 0.15 X 10*3/uL (0.04-0.35); Eosinophils % (A) 4.6 %; HCT 22.6 % (37.2-46.3); HGB 7.4 g/dL (12.0-15.0); Lymphocytes # (A) 0.67 X 10*3/uL (0.90-5.00); Lymphocytes % (A) 20.6 %; MCH 32.5 pg (27.0-32.0); MCHC 32.7 g/dL (32.0-37.0); MCV 99.1 FL (80.0-97.0); Mean Platelet Volume 10.2 FL (9.5-12.2); Monocytes # (A) 0.21 X 10*3/uL (0.20-1.00); Monocytes % (A) 6.4 %; NRBC Per 100 WBC 0 X 10*3/uL (0.00-0.01); Neutrophils # (A) 2.21 X 10*3/uL (1.80-7.70); Neutrophils % (A) 67.8 %; Platelet Count 101 X 10*3/uL (140-440); RBC 2.28 X 10*6/uL (4.10-5.20); RDW 17.5 % (11.5-14.5); WBC 3.26 X 10*3/uL (4.50-10.00)
[2024-06-29 09:52] LABS: Magnesium 1.3 mg/dL (1.5-2.4)
[2024-06-29 09:55] LABS: BUN/Creat Ratio 24.62 Ratio (12.00-20.00); Blood Urea Nitrogen 19.7 mg/dL (9.0-27.0); Carbon Dioxide 19.7 mmol/L (21.6-31.8); Chloride 116 mmol/L (96-109); Glucose 113 mg/dL (70-110); Potassium 4.2 mmol/L (3.5-5.5); Sodium 143 mmol/L (135-145)
[2024-06-29 09:56] LABS: ALT 15 U/L (8-44); AST 26 U/L (13-35); Albumin 2.8 g/dL (3.8-4.9); Albumin/Globulin Ratio 1.56 Ratio (1.60-3.17); Alkaline Phosphatase 170 U/L (41-126); Calcium 8.4 mg/dL (8.7-10.3); Globulin 1.8 g/dL (1.6-3.3); Total Bilirubin 0.4 mg/dL (0.3-1.2); Total Protein 4.6 g/dL (6.2-8.2)
--- NOTE | 2024-06-29 11:52 | P.PN ---
Subjective This is a pleasant 68-year-old female with currently receiving chemotherapy for esophageal cancer, with PEG tube feedings for backup, presented to the ER with changes in LOC since the beginning of the week accompanied by fatigue ,weakness and sleeping more .reports she sees chemotherapy every other Sunday. Followed up with Dr. Patterson this past Sunday, placed on Remeron for depression. Family expressed concern over patient taking additional doses of her [place]'s. On 06/14/2024 120 tablets dispensed and in 12 days patient was down to 56 tablets. Patient reports this was unintentional, that she reaches for [place] when she has back pain and did not realize she was doing this. Tylenol level 16.4, (therapeutic level 10-30). Toxicology screen detected opiates, oxycodone M benzodiazepines,Salicylates less than 1. Patient also reports that she had been on clarithromycin, felt as if she may have had a UTI so started taking at home on Sunday ,symptoms persisted and followed up with PCP on Sunday who ordered her another prescription of the same antibiotic. Currently denies any urinary symptoms, denies frequency, dysuria. States voiding spontaneously without difficulty. Patient also reports she has poor nutrition and decreased water intake; states her taste buds have changed. Patient reports she received the okay to proceed with oral intake approximately 1 month ago, reports she is trying to consume more oral intake and not use her PEG tube feedings due to it causes her diarrhea. Denies nausea, vomiting. Nuys abdominal pain. Denies chest pain, palpitations or shortness of breath. On admission patient, potassium 2.6, bicarb 18, BUN 54, creatinine 3.28 (baseline is 0.6), magnesium 0.9, alk phos 211, AST 41,Hemoglobin 10.5, 7.9, platelets 167, 117. Received IV fluid hydration and electrolyte supplementation in the ER. Potassium currently 3.4, magnesium 2.3 and creatinine decreased to 2.6. Brain CT reported stable calcified 1.2 cm external axial lesion superior left parietal convexity likely benign meningioma, otherwise no acute intracranial abnormality seen, moderate chronic ethmoid sinus disease severe in the left sphenoid sinus with complete loss opacification. June 28, 2024: Patient is reevaluated today. Vital signs are stable. She is 95% on room air. Afebrile. Labs now show a hemoglobin 7.5. BUN is now 31 and creatinine is 0.98 which is much improved GFR is 60. Potassium magnesium are now normalized. Family reports some gurgling after oral intake. The nurse did stop her orals and started tube feeds made her n.p.o. He is currently tolerating 25 cc an hour. Goal of 40 cc an hour. Discussed with patient that most likely have to go home with this until seen by speech therapy as an o utpatient. She denies any chest pains pressure shortness of breath nausea or vomiting. She says her ongoing sore throat. She is using Magic mouthwash as needed for this. June 29, 2024: Patient is seen and reevaluated today. Currently her tube feeds at 35 cc/h. Goal is 40 cc an hour. Vital signs are stable. She is afebrile. She is on room air. I's and O's show 105 cc in last shift and has toilet privileges. Labs now show a WBC count of 3.26 hemoglobin 7.4 platelets are 101. Electrolytes are essentially normal with exception of a magnesium of 1.3. Currently patient denies any chest pains pressure shortness of breath. She has ongoing pain with swallowing using Magic mouthwash. Objective - Vital Signs Vital signs: Vital Signs Temp 97.9 F 06/29/24 07:59 Pulse 73 06/29/24 07:59 Resp 19 06/29/24 07:59 BP 153/79 06/29/24 07:59 Pulse Ox 97 06/29/24 07:59 FiO2 Intake & Output 06/28/24 06/29/24 06/29/24 18:59 06:59 18:59 Intake Total 175 105 Output Total 125 400 Balance 50 -400 105 Weight 70 kg Intake: Oral 120 Tube Feeding 55 105 Output: Urine 125 400 Other: Voiding Method Toilet Toilet Toilet Bedside Commode Bedside Commode - Exam GENERAL: Alert and oriented x 3, sitting up in bed, family at bedside, no acute distress HEAD: Atraumatic, normocephalic. NECK: Supple, no JVD LUNGS: Clear to auscultation bilaterally no wheezes rales or crackles HEART: Regular rate and rhythm without murmurs, rubs or gallops.S1S2 Normal ABDOMEN: Soft, nontender, normoactive bowel sounds. No guarding, no rebound. No masses appreciated. PEG tube in place with tube feeds currently 35 cc/h, Florencio tube is clean dry intact EXTREMITIES:no edema. No clubbing or cyanosis. NEUROLOGICAL: Cranial nerves II through XII grossly intact. Normal speech, normal gait. SKIN: Warm, Dry, normal turgor, no rashes or lesions noted. - Labs CBC & Chem 7: 06/29/24 04:27 06/29/24 04:27 Labs: Abnormal Lab Results - Last 24 Hours (Table) 06/29/24 06/29/24 Range/Units 04:27 04:27 WBC 3.26 L (4.50-10.00) X 10*3/uL RBC 2.28 L (4.10-5.20) X 10*6/uL Hgb 7.4 L (12.0-15.0) g/dL Hct 22.6 L (37.2-46.3) % MCV 99.1 H (80.0-97.0) FL MCH 32.5 H (27.0-32.0) pg RDW 17.5 H (11.5-14.5) % Plt Count 101 L (140-440) X 10*3/uL Lymphocytes # 0.67 L (0.90-5.00) X 10*3/uL Chloride 116 H (96-109) mmol/L Carbon Dioxide 19.7 L (21.6-31.8) mmol/L BUN/Creatinine Ratio 24.62 H (12.00-20.00) Ratio Glucose 113 H (70-110) mg/dL Calcium 8.4 L (8.7-10.3) mg/dL Magnesium 1.3 L (1.5-2.4) mg/dL Alkaline Phosphatase 170 H (41-126) U/L Total Protein 4.6 L (6.2-8.2) g/dL Albumin 2.8 L (3.8-4.9) g/dL Albumin/Globulin Ratio 1.56 L (1.60-3.17) Ratio Assessment and Plan Plan: Acute renal failure, ATN, multifactorial secondary to hypotension, poor oral intake,: Resolved, losartan is on hold. Metabolic acidosis: Resolving, nephrology is seeing, she remains on bicarbonate Hypotension: Resolved Hypokalemia: Resolved recheck in a.m. Hypomagnesemia: Reoccurred, magnesium protocol in place Recent diarrhea: Now seeming unlikely related to tube feeds as she is tolerating these and had tolerated the tube feeds at home for several weeks before having diarrhea. Generalized weakness secondary to dehydration,: Resolved Acute metabolic, toxic encephalopathy secondary to all the above: Resolved most likely related to that and [place] for pain Decreased appetite multifactorial including chemotherapy, medications, clarithromycin: Improved Depression, recently prescribed additional antidepressant of mirtazapine Anxiety: Patient has as needed alprazolam ordered Esophageal cancer: Oncology is on consult Possible dysphagia: Speech pathology to evaluate tomorrow Asthma, chronic, secondary to the above, stable Hypothyroidism: Continue levothyroxine Hypertension: Losartan is on hold, will continue to monitor Hyperlipidemia: Continue pravastatin. Moderate chronic ethmoid sinus disease severe in the left sphenoid sinus with complete loss opacification, incidental finding on CT, outpatient follow-up with ENT She is improved her tube feeds are almost to goal. A speech pathology consult is pending for tomorrow most likely a modified barium swallow. She has no bags for the tube feeds at home. Pump is is pending for tomorrow as well. Will expect discharge in the next 24 hours.
[2024-06-29] MEDS: MAGNESIUM SULFATE-D5W PMX 1 GM in DEXTROSE/WATER 1 100ML.BAG IVPB SCH (12:13)
[2024-06-29 19:22] VITALS: TEMP 97.9
[2024-06-30 01:59] VITALS: BP 114/50; PULSE 69; RESP 17
[2024-07-02] MEDS ORDERED: ACETAMINOPHEN TAB 325 MG TAB ONE (05:52)
== END 2024-06-30 14:35 | disposition home or self-care (01) | DRG 682 ==
LOC: EC 11:57 → 5NMEDONC 15:53
PROVIDERS: ADMIT Family Medicine; ATTEND Family Medicine
PROC: 3E0G76Z Introduction of Nutritional Substance into Upper GI, Via Natural or Artificial Opening (ICD-10-PCS; principal; 2024-06-28)
DX: N17.0 Acute kidney failure with tubular necrosis (principal); G92.8 Other toxic encephalopathy; C15.9 Malignant neoplasm of esophagus, unspecified; E87.20 Acidosis, unspecified; N39.0 Urinary tract infection, site not specified; D32.9 Benign neoplasm of meninges, unspecified; E03.9 Hypothyroidism, unspecified; E78.5 Hyperlipidemia, unspecified; E83.42 Hypomagnesemia; E86.0 Dehydration; I95.9 Hypotension, unspecified; J44.89 Other specified chronic obstructive pulmonary disease; E87.6 Hypokalemia; F32.A Depression, unspecified; G47.00 Insomnia, unspecified; I10 Essential (primary) hypertension; R39.15 Urgency of urination; J32.2 Chronic ethmoidal sinusitis; K58.0 Irritable bowel syndrome with diarrhea; I45.10 Unspecified right bundle-branch block; M54.9 Dorsalgia, unspecified; G89.29 Other chronic pain; T50.2X5A Adverse effect of carbonic-anhydrase inhibitors, benzothiadiazides and other diuretics, initial encounter; J32.3 Chronic sphenoidal sinusitis; R19.7 Diarrhea, unspecified; Z71.3 Dietary counseling and surveillance; Z85.43 Personal history of malignant neoplasm of ovary; Z79.890 Hormone replacement therapy; Z79.899 Other long term (current) drug therapy; Z87.891 Personal history of nicotine dependence; Z90.710 Acquired absence of both cervix and uterus; Z93.1 Gastrostomy status; Z96.659 Presence of unspecified artificial knee joint; Z28.21 Immunization not carried out because of patient refusal; Z90.722 Acquired absence of ovaries, bilateral; Z92.21 Personal history of antineoplastic chemotherapy; Z87.01 Personal history of pneumonia (recurrent); Z88.0 Allergy status to penicillin
CPT/HCPCS: 36415; 70450; 71046; 76770; 80048; 80053; 80143; 80179; 80306; 81001; 83605; 83735; 84132; 85025; 93005; 94640; 96361; 96365; 96366; 96368; 96375; 99285

== ENCOUNTER → 2024-08-29 | Outpatient (CLI) | payer MEDICARE ==
--- NOTE | 2024-08-29 18:30 | CA ---
Transthoracic Echo Report Name: Joslyn Real Age: 69 Gender: F : 1955 Exam Date: 08/29/2024 14:30 Exam Location: [facility] Ht (in): 64 Wt (lb): 159 Ordering Physician: Rusty Patterson MD Attending/Referring Phys: [employer] Physiotherapist Marycruz Brenner RDCS Procedure CPT: Indications: Z01.818 Chemo Cardiac Hx: Technical Quality: Good Contrast 1: Total Dose (mL): Contrast 2: Total Dose (mL): MEASUREMENTS (Male / Female) Normal Values 2D ECHO LV Diastolic Diameter PLAX 5.5 cm 4.2 - 5.9 / 3.9 - 5.3 cm LV Systolic Diameter PLAX 3.6 cm IVS Diastolic Thickness 1.1 cm 0.6 - 1.0 / 0.6 - 0.9 cm LVPW Diastolic Thickness 1.1 cm 0.6 - 1.0 / 0.6 - 0.9 cm LV Relative Wall Thickness 0.4 RV Internal Dim ED PLAX 3.7 cm LA Systolic Diameter LX 4.4 cm 3.0 - 4.0 / 2.7 - 3.8 cm LV Diastolic Volume MOD 4C 117.8 cm??? LV Systolic Volume MOD 4C 52.3 cm??? LV Ejection Fraction MOD 4C 55.7 % LV Cardiac Index MOD 4C 2518.7 cm???/min???m??? LV Diastolic Length 4C 7.7 cm LV Systolic Length 4C 6.3 cm LV Diastolic Volume MOD 2C 109.2 cm??? LV Systolic Volume MOD 2C 54.0 cm??? LV Ejection Fraction MOD 2C 50.6 % LV Cardiac Index MOD 2C 2123.1 cm???/min???m??? LV Diastolic Length 2C 8.1 cm LV Systolic Length 2C 6.5 cm LA Volume 73.1 cm??? 18 - 58 / 22 - 52 cm??? LA Volume Index 40.1 cm???/m??? 16 - 28 cm???/m??? M-MODE Aortic Root Diameter MM 3.3 cm AV Cusp Separation MM 1.9 cm DOPPLER AV Peak Velocity 199.7 cm/s AV Peak Gradient 16.0 mmHg AV Mean Velocity 132.4 cm/s AV Mean Gradient 8.0 mmHg AV Velocity Time Integral 44.6 cm LVOT Peak Velocity 109.1 cm/s LVOT Peak Gradient 4.8 mmHg LVOT Velocity Time Integral 28.1 cm MV Area PHT 3.5 cm??? MR Peak Velocity 479.0 cm/s MR Peak Gradient 91.8 mmHg Mitral E Point Velocity 108.4 cm/s Mitral A Point Velocity 69.6 cm/s Mitral E to A Ratio 1.6 MV Deceleration Time 218.4 ms TR Peak Velocity 271.5 cm/s TR Peak Gradient 29.5 mmHg Right Ventricular Systolic Press 36.0 mmHg FINDINGS Left Ventricle Left ventricular ejection fraction is estimated at 50-55 %. Mildly increased septal wall thickness. Mildly increased posterior wall thickness. Mildly increased left ventricular diastolic diameter. No obvious regional wall motion abnormalities. Right Ventricle Mild right ventricular dilatation. Mild pulmonary hypertension. Right Atrium Normal right atrial size. No right atrial thrombus or mass seen. Left Atrium Moderately increased left atrial diameter. Severely increased left atrial volume. Mildly increased left atrial area. No left atrial thrombus or mass present. Mitral Valve Structurally normal mitral valve. No evidence for mitral valve prolapse. No mitral stenosis. Mild mitral regurgitation. Aortic Valve Trileaflet aortic valve. Thickened aortic valve without stenosis. Tricuspid Valve Structurally normal tricuspid valve. Mild tricuspid regurgitation. Pulmonic Valve Structurally normal pulmonic valve. No pulmonic regurgitation. Pericardium No pericardial or pleural effusion. Aorta Normal size aortic root and proximal ascending aorta. CONCLUSIONS LVEF 55% Mild concentric LVH No obvious regional wall motion abnormality Mild left atrial dilatation No significant valve dysfunction Previewed by: Dr Ethan Etienne (Electronically Signed) Final Date: 29 August 2024 18:29
== END | disposition home or self-care (01) ==
LOC: RADECHMAIN 14:15
PROVIDERS: ATTEND Internal Medicine Hematology & Oncology
DX: Z01.818 Encounter for other preprocedural examination
CPT/HCPCS: 93306

== ENCOUNTER → 2024-09-10 | Outpatient (CLI) | payer MEDICARE ==
--- NOTE | 2024-09-10 09:51 | XR ---
EXAMINATION TYPE: XR KUB DATE OF EXAM: 09/10/2024 9:23 AM CLINICAL INDICATION: Female, 69 years old with history of [id number] GENERALIZED ABDOMINAL TENDERNESS; P HH COMPARISON: 09/14/2022. TECHNIQUE: One radiographic view of the abdomen was obtained. FINDINGS: There is a moderate stool burden, otherwise, the bowel gas pattern is nonspecific without d ilated loops of small or large bowel. . Fecal material and gas are demonstrated throughout the colon and rectum. There is no evidence for organomegaly or pneumoperitoneum. The osseous structures are intact. No ab normal calcifications are present. Right upper quadrant right pelvic surgical clips. Left pelvic surg ical clips. Partially visualized fixation josé manuel present. PEG tube projecting over the upper abdomen. IMPRESSION: Moderate amount of stool, Nonspecific bowel gas pattern without radiographic evidence for acute proce ss. [facility], , 09/10/2024 9:49 AM
== END | disposition home or self-care (01) ==
LOC: RADXRMAIN 09:09
PROVIDERS: ATTEND Family Medicine
DX: R10.817 Generalized abdominal tenderness (principal)
CPT/HCPCS: 74018

== ENCOUNTER → 2024-09-16 | Outpatient (CLI) | payer MEDICARE ==
--- NOTE | 2024-09-16 09:39 | US ---
EXAMINATION TYPE: US venous doppler duplex LE LT DATE OF EXAM: 09/16/2024 9:24 AM COMPARISON: US CLINICAL INDICATION: Female, 69 years old with history of M79.662 PAIN IN LEFT LOWER LEG R22.42 LOCAL IZED SW; Swelling left leg, no known prior DVT TECHNIQUE: The lower extremity deep venous system is examined utilizing real time linear array sonog naina with graded compression, color doppler sonography, and spectral doppler. SIDE PERFORMED: Left FINDINGS: VESSELS IMAGED: Common Femoral Vein Deep Femoral Vein Greater Saphenous Vein * Femoral Vein Popliteal Vein Small Saphenous Vein * Proximal Calf Veins (* superficial vessels) Left Leg: Negative for DVT IMPRESSION: No ultrasound evidence for deep venous thrombosis. [facility], , 09/16/2024 9:37 AM
== END | disposition home or self-care (01) ==
LOC: RADUSWWP 08:57
PROVIDERS: ATTEND Internal Medicine Hematology & Oncology

== ENCOUNTER 2025-01-23 14:14 | Emergency (ER) | payer MEDICARE ==
--- NOTE | 2025-01-23 15:44 | ED ---
General Adult HPI - General Chief complaint: Recheck/Abnormal Lab/Rx Stated complaint: Post Feeding tube Drainage Time Seen by Provider: 01/23/25 14:48 Source: patient, RN notes reviewed, old records reviewed Mode of arrival: ambulatory Limitations: no limitations - History of Present Illness Initial comments: 69-year-old female with stage IV esophageal cancer who presents for leaking from her PEG tube site. PEG tube was removed by general surgery yesterday and patient has had gastric content leaking from the site over the past 24 hours. She does report some mild irritation to the site as well. She has been passing gas and had a normal bowel movement. No fever - Related Data Home Medications Medication Instructions Recorded Confirmed Levothyroxine Sodium [Synthroid] 88 mcg PO DAILY@0600 06/30/15 12/23/24 Omeprazole 20 mg PO DAILY@0700 06/30/15 12/23/24 ALPRAZolam [Xanax] 0.25 mg PO BID@1099,199907/31/17 12/23/24 Pravastatin Sodium 80 mg PO HS@199908/03/20 12/23/24 Furosemide [Lasix] 20 mg PO BID@0700,1800 12/06/21 12/23/24 Potassium Chloride ER [K-Dur 10] 10 meq PO HS@199912/06/21 12/23/24 Fluticasone Propion/Salmeterol 2 puff INHALATION RT-BID@0700,1800 01/24/24 12/23/24 [Advair Hfa 230-21 Mcg Inhaler] Ondansetron [Zofran] 4 mg PO Q4H PRN 02/12/24 12/23/24 Diphenoxylate HCl/Atropine 2 tab PO QID PRN 03/28/24 12/23/24 [Lomotil 2.5-0.025 mg Tablet] HYDROcodone/APAP 10-325MG [[place] 1 tab PO Q6H PRN 03/28/24 12/23/24 10-325] Albuterol Nebulized [Ventolin 2.5 mg INHALATION Q6H PRN 06/26/24 12/23/24 Nebulized] Albuterol Nebulized [Ventolin 2.5 mg INHALATION RT-DAILY 06/26/24 12/23/24 Nebulized] Clarithromycin [Biaxin] 500 mg PO BID 06/26/24 12/23/24 Colchicine [Colcrys] 0.6 mg PO DAILY PRN 06/26/24 12/23/24 Fluconazole [Diflucan] 100 mg PO DAILY 06/26/24 12/23/24 Loperamide [Imodium] 4 mg PO TID PRN 06/26/24 12/23/24 Losartan Potassium [Cozaar] 50 mg PO DAILY@0700 06/26/24 12/23/24 Magic Mouthwash 5 ml PO QID PRN 06/26/24 12/23/24 Mirtazapine [Remeron] 7.5 mg PO HS@2000 06/26/24 12/23/24 Allergies Allergy/AdvReac Type Severity Reaction Status Date / Time amoxicillin Allergy Rash/Hives Verified 01/23/25 14:29 Review of Systems ROS Statement: Those systems with pertinent positive or pertinent negative responses have been documented in the HPI. ROS Other: All systems not noted in ROS Statement are negative. Past Medical History Past Medical History: Cancer, COPD, GERD/Reflux, Hyperlipidemia, Hypertension, Osteoarthritis (OA), Pneumonia, Thyroid Disorder Additional Past Medical History / Comment(s): OVARIAN CANCER (DX 02/2015) LAST CHEMO Sep., IBS,CHRONIC BACK PAIN, HX OF BRONCHITIS. cancer reoccurence - mass in esophagus and liver History of Any Multi-Drug Resistant Organisms: None Reported Past Surgical History: Cholecystectomy, Hysterectomy, Orthopedic Surgery, Tubal Ligation Additional Past Surgical History / Comment(s): PORT-A-CATH RT CHEST(04/2015),and removal of port, COLONOSCOPY,. EXCISION LIPOMA FROM ABD. WALL. Total Hysterectomy. LT FEMUR x2. knee replacement 03/2021 Past Anesthesia/Blood Transfusion Reactions: No Reported Reaction Additional Past Anesthesia/Blood Transfusion Reaction / Comment(s): NO COMPLICATIONS WITH BLOOD TRANSFUSION. Past Psychological History: Anxiety Smoking Status: Former smoker Past Alcohol Use History: None Reported Past Drug Use History: None Reported - Past Family History Mother Family Medical History: Cancer Additional Family Medical History / Comment(s): SQUAMOUS CELL CA-NECK. Father History Unknown: Yes General Exam Limitations: no limitations General appearance: alert, in no apparent distress Head exam: Present: atraumatic, normocephalic Eye exam: Present: normal appearance, PERRL ENT exam: Present: normal exam Neck exam: Present: normal inspection. Absent: tenderness, meningismus Respiratory exam: Present: normal lung sounds bilaterally. Absent: respiratory distress, wheezes Cardiovascular Exam: Present: regular rate, normal rhythm GI/Abdominal exam: Present: soft, other (Erythema around the PEG tube site). Absent: distended Neurological exam: Present: alert, oriented X3 Psychiatric exam: Present: normal affect, normal mood Course Vital Signs 01/23/25 14:27 Temperature 97.8 F Pulse Rate 71 Respiratory 18 Rate Blood Pressure 156/75 O2 Sat by Pulse 97 Oximetry Medical Decision Making - Medical Decision Making Was pt. sent in by a medical professional or institution (, LUPILLO, ELECTROPHONIC ENGINEER, urgent care, hospital, or halfway...) When possible be specific @ -No Did you speak to anyone other than the patient for history (EMS, parent, family, police, friend...)? What history was obtained from this source @ -No Did you review nursing and triage notes (agree or disagree)? Why? @ -I reviewed and agree with nursing and triage notes Were old charts reviewed (outside hosp., previous admission, EMS record, old EKG, old radiological studies, urgent care reports/EKG's, halfway records)? Report findings @ -No old charts were reviewed Differential Diagnosis infected PEG tube site, time needed to heal PEG tube site EKG interpreted by me (3pts min.). @ -As above X-rays interpreted by me (1pt min.). @ -None done CT interpreted by me (1pt min.). @ -None done U/S interpreted by me (1pt. min.). @ -None done What testing was considered but not performed or refused? (CT, X-rays, U/S, labs)? Why? @ -None What meds were considered but not given or refused? Why? @ -None Did you discuss the management of the patient with other professionals (professionals i.e. LUPILLO Montiel, ELECTROPHONIC ENGINEER, lab, RT, psych nurse, social service assistant, finishing machine operator, teacher, safety and security officer, case preparer and liner)? Give summary @ -[Case discussed with Dr. Orourke, recommends 65 to 70 g of protein daily and take multiple vitamin to encourage healing, she recommends soft food diet, no surgical intervention at this time. Was smoking cessation discussed for >3mins.? @ -No Was critical care preformed (if so, how long)? @ -No Were there social determinants of health that impacted care today? How? (Homelessness, low income, unemployed, alcoholism, drug addiction, transportation, low edu. Level, literacy, decrease access to med. care, custodial, rehab)? @ -No Was there de-escalation of care discussed even if they declined (Discuss DNR or withdrawal of care, Hospice)? DNR status @ -No What co-morbidities impacted this encounter? (DM, HTN, Smoking, COPD, CAD, Cancer, CVA, ARF, Chemo, Hep., AIDS, mental health diagnosis, sleep apnea, morbid obesity)? @ -None Was patient admitted / discharged? Hospital course, mention meds given and rout e, prescriptions, significant lab abnormalities, going to OR and other pertinent info. @Patient instructed to eat soft food, and encourage increased protein intake and vitamin supplementation. Stable for discharge at this time. Undiagnosed new problem with uncertain prognosis? @ -No Drug Therapy requiring intensive monitoring for toxicity (Heparin, Nitro, Insulin, Cardizem)? @ -No Were any procedures done? @ -No Diagnosis/symptom? @Drainage from previous PEG tube site Acute, or Chronic, or Acute on Chronic? @ -Acute Uncomplicated (without systemic symptoms) or Complicated (systemic symptoms)? @ -Default Side effects of treatment? @ -No Exacerbation, Progression, or Severe Exacerbation? @ -No Poses a threat to life or bodily function? How? (Chest pain, [place], [place], pneumonia, PE, COPD, DKA, ARF, appy, cholecystitis, CVA, Diverticulitis, Homicidal, Suicidal, threat to staff... and all critical care pts) @ -No Disposition Clinical Impression: Leaking PEG tube Disposition: HOME SELF-CARE Condition: Fair Additional Instructions: Please keep the area bandaged. Please increase protein intake in your diet, eat soft foods, take a multiple vitamin, follow-up with your surgeon. Is patient prescribed a controlled substance at d/c from ED?: No Referrals: Caleb Fisher Jr, DO [Primary Care Provider] - 1-2 days Time of Disposition: 15:44
[2025-01-23 16:13] VITALS: BP 148/76; PULSE 74; RESP 17; TEMP 97.9
== END 2025-01-23 16:11 | disposition home or self-care (01) ==
LOC: EC 14:14
DX: K94.23 Gastrostomy malfunction (principal); Z87.891 Personal history of nicotine dependence; Z88.0 Allergy status to penicillin
CPT/HCPCS: 99283

== ENCOUNTER 2025-03-21 08:03 | Emergency (ER) | payer MEDICARE ==
[2025-03-21] MEDS: LACTATED RINGERS 1,000 ML IV SCH (09:14)
[2025-03-21 09:30] LABS: Basophils # (A) 0.05 10*3/uL (0.00-0.10); Basophils % (A) 1.1 %; Eosinophils # (A) 0.48 10*3/uL (0.04-0.35); Eosinophils % (A) 10.7 %; HGB 11.7 g/dL (12.0-15.0); Lymphocytes # (A) 0.52 10*3/uL (0.90-5.00); Lymphocytes % (A) 11.6 %; MCH 35.1 pg (27.0-32.0); MCHC 35.5 g/dL (32.0-37.0); MCV 99.1 fL (80.0-97.0); Mean Platelet Volume 9.8 fL (9.5-12.2); Monocytes # (A) 0.48 10*3/uL (0.20-1.00); Monocytes % (A) 10.7 %; Neutrophils # (A) 2.92 10*3/uL (1.80-7.70); Neutrophils % (A) 65.5 %; Platelet Count 131 10*3/uL (140-440); RBC 3.33 10*6/uL (4.10-5.20); RDW 13.2 % (11.5-14.5); WBC 4.47 10*3/uL (4.50-10.00)
[2025-03-21 09:43] LABS: ALT 18 U/L (4-34); AST 60 U/L (14-36); African American GFR (CKD) 83 (>60 ml/min/1.73 sqM); Albumin 3.5 g/dL (3.5-5.0); Alkaline Phosphatase 158 U/L (38-126); Anion Gap 7 mmol/L; Blood Urea Nitrogen 13 mg/dL (7-17); Calcium 9.1 mg/dL (8.4-10.2); Carbon Dioxide 25 mmol/L (22-30); Chloride 106 mmol/L (98-107); Glucose 107 mg/dL (74-99); Magnesium 1.3 mg/dL (1.6-2.3); Non-African American GFR(CKD) 72 (>60 ml/min/1.73 sqM); Potassium 2.9 mmol/L (3.5-5.1); Sodium 138 mmol/L (137-145); Total Protein 6.6 g/dL (6.3-8.2)
[2025-03-21 11:18] LABS: Influenza A Not Detected (Not Detectd); Influenza B Not Detected (Not Detectd); RSV Not Detected (Not Detectd)
[2025-03-21] MEDS: MAGNESIUM SULFATE-D5W PMX 1 GM in DEXTROSE/WATER 1 100ML.BAG IVPB SCH (11:32)
[2025-03-21] MEDS: SODIUM CHLORIDE 0.9% 1,000 ML IV ONE (11:32)
--- NOTE | 2025-03-21 11:52 | ED ---
Weakness HPI - General Chief complaint: Weakness Stated complaint: Dehydration Time Seen by Provider: 03/21/25 08:10 Source: patient Mode of arrival: ambulatory Limitations: no limitations - History of Present Illness Initial comments: 69-year-old female presents emergency department for dehydration. Patient has a history of esophageal cancer. She has difficulty eating and drinking therefore she has a G-tube which helps her supplement her meals. She has been undergoing radiation treatment to her esophagus. She has had improvement in her eating abilities. She is scheduled to have her G-tube removed. She has an appointment at [facility] for this. Dr. Keller was the one that put the G-tube in however it leaks and requires surgery to repair this. Patient states that when she takes in things by mouth, it leaks out around the G-tube site and causes significant dehydration. She has had issues with her electrolytes and does take potassium and magnesium at home. Patient feels weak and she attributes it to her poor oral intake. She denies any fevers. No chest or abdominal pain. No shortness of breath. Denies cough. Denies any lateralizing weakness. No other alleviating, precipitating or modifying factors - Related Data Home Medications Medication Instructions Recorded Confirmed Levothyroxine Sodium [Synthroid] 88 mcg PO DAILY@0600 06/30/15 12/23/24 Omeprazole 20 mg PO DAILY@69906/30/15 12/23/24 ALPRAZolam [Xanax] 0.25 mg PO BID@1100,199907/31/17 12/23/24 Pravastatin Sodium 80 mg PO HS@199908/03/20 12/23/24 Furosemide [Lasix] 20 mg PO BID@07,179912/06/21 12/23/24 Potassium Chloride ER [K-Dur 10] 10 meq PO HS@199912/06/21 12/23/24 Fluticasone Propion/Salmeterol 2 puff INHALATION RT-BID@699,179901/24/24 12/23/24 [Advair Hfa 230-21 Mcg Inhaler] Ondansetron [Zofran] 4 mg PO Q4H PRN 02/12/24 12/23/24 Diphenoxylate HCl/Atropine 2 tab PO QID PRN 03/28/24 12/23/24 [Lomotil 2.5-0.025 mg Tablet] HYDROcodone/APAP 10-325MG [[place] 1 tab PO Q6H PRN 03/28/24 12/23/24 10-325] Albuterol Nebulized [Ventolin 2.5 mg INHALATION Q6H PRN 06/26/24 12/23/24 Nebulized] Albuterol Nebulized [Ventolin 2.5 mg INHALATION RT-DAILY 06/26/24 12/23/24 Nebulized] Clarithromycin [Biaxin] 500 mg PO BID 06/26/24 12/23/24 Colchicine [Colcrys] 0.6 mg PO DAILY PRN 06/26/24 12/23/24 Fluconazole [Diflucan] 100 mg PO DAILY 06/26/24 12/23/24 Loperamide [Imodium] 4 mg PO TID PRN 06/26/24 12/23/24 Losartan Potassium [Cozaar] 50 mg PO DAILY@0700 06/26/24 12/23/24 Magic Mouthwash 5 ml PO QID PRN 06/26/24 12/23/24 Mirtazapine [Remeron] 7.5 mg PO HS@199906/26/24 12/23/24 Previous Rx's Medication Instructions Recorded Potassium Chloride [Potassium 20 meq PO DAILY #10 tab 03/21/25 Chloride ER (K-Dur GEQ)] Allergies Allergy/AdvReac Type Severity Reaction Status Date / Time amoxicillin Allergy Rash/Hives Verified 01/23/25 14:29 Review of Systems ROS Statement: Those systems with pertinent positive or pertinent negative responses have been documented in the HPI. ROS Other: All systems not noted in ROS Statement are negative. Past Medical History Past Medical History: Cancer, COPD, GERD/Reflux, Hyperlipidemia, Hypertension, Osteoarthritis (OA), Pneumonia, Thyroid Disorder Additional Past Medical History / Comment(s): OVARIAN CANCER (DX 02/2015) LAST CHEMO Sep., IBS,CHRONIC BACK PAIN, HX OF BRONCHITIS. cancer reoccurence - mass in esophagus and liver History of Any Multi-Drug Resistant Organisms: None Reported Past Surgical History: Cholecystectomy, Hysterectomy, Orthopedic Surgery, Tubal Ligation Additional Past Surgical History / Comment(s): PORT-A-CATH RT CHEST(04/2015),and removal of port, COLONOSCOPY,. EXCISION LIPOMA FROM ABD. WALL. Total Hysterectomy. LT FEMUR x2. knee replacement 03/2021 Past Anesthesia/Blood Transfusion Reactions: No Reported Reaction Additional Past Anesthesia/Blood Transfusion Reaction / Comment(s): NO COMPLICATIONS WITH BLOOD TRANSFUSION. Past Psychological History: Anxiety Smoking Status: Former smoker Past Alcohol Use History: None Reported Past Drug Use History: None Reported - Past Family History Mother Family Medical History: Cancer Additional Family Medical History / Comment(s): SQUAMOUS CELL CA-NECK. Father History Unknown: Yes General Exam Limitations: no limitations General appearance: alert, in no apparent distress Head exam: Present: atraumatic, normocephalic, normal inspection Eye exam: Present: normal appearance, PERRL, EOMI. Absent: scleral icterus, conjunctival injection, periorbital swelling ENT exam: Present: normal exam, mucous membranes moist Neck exam: Present: normal inspection. Absent: tenderness, meningismus, lymphadenopathy Respiratory exam: Present: normal lung sounds bilaterally. Absent: respiratory distress, wheezes, rales, rhonchi, stridor Cardiovascular Exam: Present: regular rate, normal rhythm, normal heart sounds. Absent: systolic murmur, diastolic murmur, rubs, gallop, clicks GI/Abdominal exam: Present: soft, normal bowel sounds, other (G-tube in place). Absent: distended, tenderness, guarding, rebound, rigid Extremities exam: Present: normal inspection, full ROM, normal capillary refill. Absent: tenderness, pedal edema, joint swelling, calf tenderness Back exam: Present: normal inspection Neurological exam: Present: alert, oriented X3, CN II-XII intact Psychiatric exam: Present: normal affect, normal mood Skin exam: Present: warm, dry, intact, normal color. Absent: rash Course Vital Signs 03/21/25 03/21/25 03/21/25 08:04 12:27 15:35 Temperature 98.6 F 97.9 F 98.2 F Pulse Rate 86 70 75 Respiratory 20 18 18 Rate Blood Pressure 121/75 137/73 133/79 O2 Sat by Pulse 94 L 95 96 Oximetry Medical Decision Making - Medical Decision Making Was pt. sent in by a medical professional or institution (, PA, TERMINAL BLOCK ASSEMBLER, urgent care, hospital, or halfway...) When possible be specific @ -No Did you speak to anyone other than the patient for history (EMS, parent, family, police, friend...)? What history was obtained from this source @ -I spoke with the patient's son in regards to the history. He is able to supplement details about the patient's cancer care that the patient cannot provide Did you review nursing and triage notes (agree or disagree)? Why? @ -I reviewed and agree with nursing and triage notes Were old charts reviewed (outside hosp., previous admission, EMS record, old EKG, old radiological studies, urgent care reports/EKG's, halfway records)? Report findings @ -No old charts were reviewed Differential Diagnosis (chest pain, altered mental status, abdominal pain women, abdominal pain men, vaginal bleeding, weakness, fever, dyspnea, syncope, headache, dizziness, GI bleed, back pain, seizure, CVA, palpatations, mental health, musculoskeletal)? @ -Differential Weakness: Hypoglycemia, shock, sepsis, hyponatremia, anemia, infection, [place], ETOH, adverse medicine reaction, overdose, stroke, this is not meant to be an all-inclusive list. EKG interpreted by me (3pts min.). @ -Not done X-rays interpreted by me (1pt min.). @ -None done CT interpreted by me (1pt min.). @ -None done U/S interpreted by me (1pt. min.). @ -None done What testing was considered but not performed or refused? (CT, X-rays, U/S, labs)? Why? @ -None What meds were considered but not given or refused? Why? @ -None Did you discuss the management of the patient with other professionals (professionals i.e. , PA, TERMINAL BLOCK ASSEMBLER, lab, RT, psych nurse, clinical social work therapist, integration consultant, teacher, dog license officer supervisor, rehabilitation case coordinator)? Give summary @ -No Was smoking cessation discussed for >3mins.? @ -No Was critical care preformed (if so, how long)? @ -No Were there social determinants of health that impacted care today? How? (Homelessness, low income, unemployed, alcoholism, drug addiction, transportation, low edu. Level, literacy, decrease access to med. care, residential, rehab)? @ -No Was there de-escalation of care discussed even if they declined (Discuss DNR or withdrawal of care, Hospice)? DNR status @ -No What co-morbidities impacted this encounter? (DM, HTN, Smoking, COPD, CAD, Cancer, CVA, ARF, Chemo, Hep., AIDS, mental health diagnosis, sleep apnea, morbid obesity)? @ -Esophageal cancer Was patient admitted / discharged? Hospital course, mention meds given and route, prescriptions, significant lab abnormalities, going to OR and other pertinent info. @ -Upon arrival patient seen and evaluated in bed 22. Thorough history and physical exam was performed. IV access was established and the patient was administered 2 L bolus of normal saline. Laboratory studies are conducted. Patient does have significant hypokalemia and hypomagnesemia. These are replaced. Patient feels improved at this time. She will be discharged home and continued on her oral replacement for magnesium and potassium. She is to follow-up with her doctor in the next 2 to 4 days to have reevaluation of her laboratory studies and repeat blood work. She is to follow-up at [facility] for her scheduled appointment to have her PEG tube removed. Return for any new or worsening symptoms. Patient agreeable plan she was discharged in stable condition Undiagnosed new problem with uncertain prognosis? @ -No Drug Therapy requiring intensive monitoring for toxicity (Heparin, Nitro, Insuli n, Cardizem)? @ -No Were any procedures done? @ -No Diagnosis/symptom? @ -Acute generalized weakness, acute hypokalemia, acute hypomagnesemia, malfunctioning PEG tube, history of esophageal cancer and radiation Acute, or Chronic, or Acute on Chronic? @ -Acute on chronic Uncomplicated (without systemic symptoms) or Complicated (systemic symptoms)? @ -Complicated Side effects of treatment? @ -No Exacerbation, Progression, or Severe Exacerbation? @ -Yes Poses a threat to life or bodily function? How? (Chest pain, [place], [place], pneumonia, PE, COPD, DKA, ARF, appy, cholecystitis, CVA, Diverticulitis, Homicidal, Suicidal, threat to staff... and all critical care pts) @ -No - Lab Data Result diagrams: 03/21/25 09:26 03/21/25 09: Lab Results 03/21/25 03/21/25 03/21/25 Range/Units : 09: 10:37 WBC 4.47 L (4.50-10.00) 10*3/uL RBC 3.33 L (4.10-5.20) 10*6/uL Hgb 11.7 L (12.0-15.0) g/dL Hct 33.0 L (37.2-46.3) % MCV 99.1 H (80.0-97.0) fL MCH 35.1 H (27.0-32.0) pg MCHC 35.5 (32.0-37.0) g/dL Plt Count 131 L (140-440) 10*3/uL MPV 9.8 (9.5-12.2) fL Immature Gran % (Auto) 0.4 % Neutrophils % 65.5 % Lymphocytes % 11.6 % Monocytes % 10.7 % Eosinophils % 10.7 % Basophils % 1.1 % Immature Gran # 0.02 (0.00-0.04) 10*3/uL Neutrophils # 2.92 (1.80-7.70) 10*3/uL Lymphocytes # 0.52 L (0.90-5.00) 10*3/uL Monocytes # 0.48 (0.20-1.00) 10*3/uL Eosinophils # 0.48 H (0.04-0.35) 10*3/uL Basophils # 0.05 (0.00-0.10) 10*3/uL Sodium 138 (137-145) mmol/L Potassium 2.9 L (3.5-5.1) mmol/L Chloride 106 (98-107) mmol/L Carbon Dioxide 25 (22-30) mmol/L Anion Gap 7 mmol/L BUN 13 (7-17) mg/dL Creatinine 0.84 (0.52-1.04) mg/dL Est GFR (CKD-EPI)AfAm 83 (>60 ml/min/1.73 sqM) Est GFR (CKD-EPI)NonAf 72 (>60 ml/min/1.73 sqM) Glucose 107 H (74-99) mg/dL Calcium 9.1 (8.4-10.2) mg/dL Magnesium 1.3 L (1.6-2.3) mg/dL Total Bilirubin 1.0 (0.2-1.3) mg/dL AST 60 H (14-36) U/L ALT 18 (4-34) U/L Alkaline Phosphatase 158 H (38-126) U/L Total Protein 6.6 (6.3-8.2) g/dL Albumin 3.5 (3.5-5.0) g/dL Influenza Type A (PCR) Not Detected (Not Detectd) Influenza Type B (PCR) Not Detected (Not Detectd) RSV (PCR) Not Detected (Not Detectd) SARS-CoV-2 (PCR) Not Detected (Not Detectd) Disposition Clinical Impression: Dehydration Disposition: HOME SELF-CARE Condition: Stable Instructions (If sedation given, give patient instructions): Dehydration (ED) Additional Instructions: Please follow up with your care team as previously planned. Take the magnesium as it was previously prescribed. Take 20 meq of potassium daily. I have called new pills into the pharmacy here at the hospital for you. Do not take your liquid potassium while taking the pills. You will need your potassium level rechecked in 1-2 weeks. Return for any new or worsening symptoms Prescriptions: Potassium Chloride [Potassium Chloride ER (K-Dur GEQ)] 20 meq PO DAILY #10 tab Is patient prescribed a controlled substance at d/c from ED?: No Referrals: Caleb Fisher Jr, [Primary Care Provider] - 1-2 days Time of Disposition: 11:53
[2025-03-21 12:28] VITALS: RESP 18
[2025-03-21] MEDS: POTASSIUM CHLORIDE ER 20 MEQ TAB.ER PO STA ×2 (12:29→15:20)
[2025-03-21] MEDS: POTASSIUM CHLORIDE 20 MEQ in WATER FOR INJECTION 1 100ML.BAG IVPB STA (12:29)
[2025-03-21] MEDS: POTASSIUM CHLORIDE 20 MEQ in WATER FOR INJECTION 1 100ML.BAG IVPB SCH (12:43)
[2025-03-21 15:36] VITALS: BP 133/79; PULSE 75; TEMP 98.2
== END 2025-03-21 15:36 | disposition home or self-care (01) ==
LOC: EC 08:03
DX: E86.0 Dehydration (principal); Z87.891 Personal history of nicotine dependence; Z88.0 Allergy status to penicillin
CPT/HCPCS: 36415; 80053; 83735; 85025; 87636; 99284; 96365; 96368; 96366 ×3; 96361 ×2; J3480; J3475

== ENCOUNTER 2025-05-01 08:20 | Inpatient (IN) | payer MEDICARE ==
--- NOTE | 2025-05-01 08:49 | ED ---
General Adult HPI - General Chief complaint: Shortness of Breath Stated complaint: short of breath Time Seen by Provider: 05/01/25 08:28 Source: patient, family, RN notes reviewed Mode of arrival: ambulatory Limitations: no limitations - History of Present Illness Initial comments: Patient is a 69-year-old female presenting to the emergency department with difficulty breathing. Patient does have past medical history consistent of COPD and metastatic esophageal cancer. Patient recently had to stop her chemotherapy. No significant cough. No fever. No congestion. Patient onset of symptoms was last night. Patient oxygen at home was in the 70s. No new calf pain or leg swelling. - Related Data Home Medications Medication Instructions Recorded Confirmed Levothyroxine Sodium [Synthroid] 88 mcg PO DAILY@0600 06/30/15 12/23/24 Omeprazole 20 mg PO DAILY@0700 06/30/15 12/23/24 ALPRAZolam [Xanax] 0.25 mg PO BID@1100,199907/31/17 12/23/24 Pravastatin Sodium 80 mg PO HS@199908/03/20 12/23/24 Furosemide [Lasix] 20 mg PO BID@0700,1800 12/06/21 12/23/24 Potassium Chloride ER [K-Dur 10] 10 meq PO HS@199912/06/21 12/23/24 Fluticasone Propion/Salmeterol 2 puff INHALATION RT-BID@0700,1800 01/24/24 0 12/23/24 [Advair Hfa 230-21 Mcg Inhaler] Ondansetron [Zofran] 4 mg PO Q4H PRN 02/12/24 12/23/24 Diphenoxylate HCl/Atropine 2 tab PO QID PRN 03/28/24 12/23/24 [Lomotil 2.5-0.025 mg Tablet] HYDROcodone/APAP 10-325MG [[place] 1 tab PO Q6H PRN 03/28/24 12/23/24 10-325] Albuterol Nebulized [Ventolin 2.5 mg INHALATION Q6H PRN 06/26/24 12/23/24 Nebulized] Albuterol Nebulized [Ventolin 2.5 mg INHALATION RT-DAILY 06/26/24 12/23/24 Nebulized] Clarithromycin [Biaxin] 500 mg PO BID 06/26/24 12/23/24 Colchicine [Colcrys] 0.6 mg PO DAILY PRN 06/26/24 12/23/24 Fluconazole [Diflucan] 100 mg PO DAILY 06/26/24 12/23/24 Loperamide [Imodium] 4 mg PO TID PRN 06/26/24 12/23/24 Losartan Potassium [Cozaar] 50 mg PO DAILY@0700 06/26/24 12/23/24 Magic Mouthwash 5 ml PO QID PRN 06/26/24 12/23/24 Mirtazapine [Remeron] 7.5 mg PO HS@199906/26/24 12/23/24 Previous Rx's Medication Instructions Recorded Potassium Chloride [Potassium 20 meq PO DAILY #10 tab 03/21/25 Chloride ER (K-Dur GEQ)] Allergies Allergy/AdvReac Type Severity Reaction Status Date / Time amoxicillin Allergy Rash/Hives Verified 05/01/25 08:33 Review of Systems ROS Statement: Those systems with pertinent positive or pertinent negative responses have been documented in the HPI. ROS Other: All systems not noted in ROS Statement are negative. Constitutional: Denies: fever Eyes: Denies: eye pain ENT: Denies: congestion Respiratory: Reports: as per HPI, dyspnea Cardiovascular: Denies: chest pain Endocrine: Reports: fatigue Gastrointestinal: Denies: abdominal pain Psychiatric: Reports: anxiety Past Medical History Past Medical History: Cancer, COPD, GERD/Reflux, Hyperlipidemia, Hypertension, Osteoarthritis (OA), Pneumonia, Thyroid Disorder Additional Past Medical History / Comment(s): OVARIAN CANCER (DX 02/2015) LAST CHEMO March 2025, IBS,CHRONIC BACK PAIN, HX OF BRONCHITIS. cancer reoccurence - mass in esophagus and liver History of Any Multi-Drug Resistant Organisms: None Reported Past Surgical History: Cholecystectomy, Hysterectomy, Orthopedic Surgery, Tubal Ligation Additional Past Surgical History / Comment(s): PORT-A-CATH RT CHEST(04/2015),and removal of port, COLONOSCOPY,. EXCISION LIPOMA FROM ABD. WALL. Total Hysterectomy. LT FEMUR x2. knee replacement 03/2021 Past Anesthesia/Blood Transfusion Reactions: No Reported Reaction Additional Past Anesthesia/Blood Transfusion Reaction / Comment(s): NO COMPLICATIONS WITH BLOOD TRANSFUSION. Past Psychological History: Anxiety Smoking Status: Former smoker Past Alcohol Use History: None Reported Past Drug Use History: None Reported - Past Family History Mother Family Medical History: Cancer Additional Family Medical History / Comment(s): SQUAMOUS CELL CA-NECK. Father History Unknown: Yes General Exam Limitations: no limitations General appearance: alert Head exam: Present: normocephalic Eye exam: Present: normal appearance Neck exam: Present: normal inspection Respiratory exam: Present: decreased breath sounds Cardiovascular Exam: Present: regular rate, normal rhythm GI/Abdominal exam: Present: soft. Absent: tenderness Extremities exam: Present: normal inspection. Absent: pedal edema, calf tenderness Neurological exam: Present: alert Psychiatric exam: Present: anxious Skin exam: Present: normal color Course Vital Signs 05/01/25 05/01/25 05/01/25 08:29 09:07 09:33 Temperature 97.8 F 98.2 F Pulse Rate 92 83 Respiratory 22 26 H 32 H Rate Blood Pressure 106/90 120/75 O2 Sat by Pulse 90 L 94 L Oximetry 05/01/25 05/01/25 05/01/25 09:36 09:47 09:53 Temperature Pulse Rate 76 80 87 Respiratory 20 Rate Blood Pressure 120/75 O2 Sat by Pulse 92 L Oximetry 05/01/25 11:11 Temperature Pulse Rate 85 Respiratory 26 H Rate Blood Pressure 97/70 O2 Sat by Pulse 94 L Oximetry EKG Findings - EKG Results: EKG: interpreted by ERMD (Left axis. LVH criteria. Nonspecific T waves.), sinus rhythm Medical Decision Making - Medical Decision Making Was pt. sent in by a medical professional or institution (, PA, WORKFORCE MANAGEMENT COORDINATOR, urgent care, hospital, or correction...) When possible be specific @ -No Did you speak to anyone other than the patient for history (EMS, parent, family, police, friend...)? What history was obtained from this source @ - is present helps provide history including patient's current treatme nt plan with holding chemotherapy Did you review nursing and triage notes (agree or disagree)? Why? @ -I reviewed and agree with nursing and triage notes Were old charts reviewed (outside hosp., previous admission, EMS record, old EKG, old radiological studies, urgent care reports/EKG's, correction records)? Report findings @ -No old charts were reviewed Differential Diagnosis (chest pain, altered mental status, abdominal pain women, abdominal pain men, vaginal bleeding, weakness, fever, dyspnea, syncope, headache, dizziness, GI bleed, back pain, seizure, CVA, palpatations, mental health, musculoskeletal)? @ -Differential Dyspnea: Coronary syndrome, arrhythmia, tamponade, asthma, COPD, pulmonary embolism, pneumonia, pneumothorax, pulmonary effusion, anaphylaxis, diabetic ketoacidosis, flailed chest, pulmonary contusion, diaphragmatic rupture, anemia, neuromuscular, this is not meant to be an all-inclusive list. EKG interpreted by me (3pts min.). @ -As above X-rays interpreted by me (1pt min.). @ -Chest x-ray concerning for CHF CT interpreted by me (1pt min.). @ -CT chest concerning for CHF U/S interpreted by me (1pt. min.). @ -None done What testing was considered but not performed or refused? (CT, X-rays, U/S, labs)? Why? @ -None What meds were considered but not given or refused? Why? @ -None Did you discuss the management of the patient with other professionals (professionals i.e. , PA, WORKFORCE MANAGEMENT COORDINATOR, lab, RT, psych nurse, child protective services social worker, molecular technologist, teacher, loan review officer, caseworker protective services)? Give summary @ -Case was discussed with Dr. Duke who will admit covering Dr. Fisher Was smoking cessation discussed for >3mins.? @ -No Was critical care preformed (if so, how long)? @ -No Were there social determinants of health that impacted care today? How? (Homelessness, low income, unemployed, alcoholism, drug addiction, transportation, low edu. Level, literacy, decrease access to med. care, fdc, rehab)? @ -No Was there de-escalation of care discussed even if they declined (Discuss DNR or withdrawal of care, Hospice)? DNR status @ -No What co-morbidities impacted this encounter? (DM, HTN, Smoking, COPD, CAD, Cancer, CVA, ARF, Chemo, Hep., AIDS, mental health diagnosis, sleep apnea, morbid obesity)? @ -Metastatic esophageal cancer Was patient admitted / discharged? Hospital course, mention meds given and route, prescriptions, significant lab abnormalities, going to OR and other pertinent info. @ -Patient presents with dyspnea. Evaluation concerning for CHF. Patient will be admitted with cardiology and oncology consult. Admission orders written. Patient reevaluated. Patient and family updated. Undiagnosed new problem with uncertain prognosis? @ -No Drug Therapy requiring intensive monitoring for toxicity (Heparin, Nitro, Insulin, Cardizem)? @ -No Were any procedures done? @ -No Diagnosis/symptom? @ -CHF Acute, or Chronic, or Acute on Chronic? @ -Acute Uncomplicated (without systemic symptoms) or Complicated (systemic symptoms)? @ -Default Side effects of treatment? @ -No Exacerbation, Progression, or Severe Exacerbation? @ -No Poses a threat to life or bodily function? How? (Chest pain, USA, DC, pneumonia, PE, COPD, DKA, ARF, appy, cholecystitis, CVA, Diverticulitis, Homicidal, Suicidal, threat to staff... and all critical care pts) @ -Threat to cardiac and pulmonary function - Lab Data Result diagrams: 05/01/25 08:46 05/01/25 08:46 Lab Results 05/01/25 05/01/25 05/01/25 Range/Units 08:46 08:46 08:46 WBC 8.10 (4.50-10.00) 10*3/uL RBC 3.89 L (4.10-5.20) 10*6/uL Hgb 14.1 (12.0-15.0) g/dL Hct 40.6 (37.2-46.3) % MCV 104.4 H D (80.0-97.0) fL MCH 36.2 H (27.0-32.0) pg MCHC 34.7 (32.0-37.0) g/dL Plt Count 110 L (140-440) 10*3/uL MPV 10.1 (9.5-12.2) fL Immature Gran % (Auto) 0.4 % Neutrophils % 85.3 % Lymphocytes % 5.4 % Monocytes % 8.1 % Eosinophils % 0.1 % Basophils % 0.7 % Immature Gran # 0.03 (0.00-0.04) 10*3/uL Neutrophils # 6.90 (1.80-7.70) 10*3/uL Lymphocytes # 0.44 L (0.90-5.00) 10*3/uL Monocytes # 0.66 (0.20-1.00) 10*3/uL Eosinophils # 0.01 L (0.04-0.35) 10*3/uL Basophils # 0.06 (0.00-0.10) 10*3/uL PT 10.7 (10.0-12.5) sec INR 1.0 (<1.2) APTT 24.7 (22.0-30.0) sec D-Dimer 1.91 H (<0.60) mg/L FEU Sodium (137-145) mmol/L Potassium (3.5-5.1) mmol/L Chloride (98-107) mmol/L Carbon Dioxide (22-30) mmol/L Anion Gap mmol/L BUN (7-17) mg/dL Creatinine (0.52-1.04) mg/dL Est GFR (CKD-EPI)AfAm (>60 ml/min/1.73 sqM) Est GFR (CKD-EPI)NonAf (>60 ml/min/1.73 sqM) Glucose (74-99) mg/dL Plasma Lactic Acid Freedom (0.7-2.0) mmol/L Calcium (8.4-10.2) mg/dL Magnesium (1.6-2.3) mg/dL Total Bilirubin (0.2-1.3) mg/dL AST (14-36) U/L ALT (4-34) U/L Alkaline Phosphatase (38-126) U/L NT-Pro-B Natriuret Pep pg/mL Total Protein (6.3-8.2) g/dL Albumin (3.5-5.0) g/dL Influenza Type A (PCR) Not Detected (Not Detectd) Influenza Type B (PCR) Not Detected (Not Detectd) RSV (PCR) Not Detected (Not Detectd) SARS-CoV-2 (PCR) Not Detected (Not Detectd) 05/01/25 05/01/25 Range/Units 08:46 08:46 WBC (4.50-10.00) 10*3/uL RBC (4.10-5.20) 10*6/uL Hgb (12.0-15.0) g/dL Hct (37.2-46.3) % MCV (80.0-97.0) fL MCH (27.0-32.0) pg MCHC (32.0-37.0) g/dL Plt Count (140-440) 10*3/uL MPV (9.5-12.2) fL Immature Gran % (Auto) % Neutrophils % % Lymphocytes % % Monocytes % % Eosinophils % % Basophils % % Immature Gran # (0.00-0.04) 10*3/uL Neutrophils # (1.80-7.70) 10*3/uL Lymphocytes # (0.90-5.00) 10*3/uL Monocytes # (0.20-1.00) 10*3/uL Eosinophils # (0.04-0.35) 10*3/uL Basophils # (0.00-0.10) 10*3/uL PT (10.0-12.5) sec INR (<1.2) APTT (22.0-30.0) sec D-Dimer (<0.60) mg/L FEU Sodium 138 (137-145) mmol/L Potassium 3.9 (3.5-5.1) mmol/L Chloride 103 (98-107) mmol/L Carbon Dioxide 23 (22-30) mmol/L Anion Gap 12 mmol/L BUN 21 H (7-17) mg/dL Creatinine 0.76 (0.52-1.04) mg/dL Est GFR (CKD-EPI)AfAm >90 (>60 ml/min/1.73 sqM) Est GFR (CKD-EPI)NonAf 81 (>60 ml/min/1.73 sqM) Glucose 136 H (74-99) mg/dL Plasma Lactic Acid Freedom 3.2 H* (0.7-2.0) mmol/L Calcium 9.5 (8.4-10.2) mg/dL Magnesium 1.9 (1.6-2.3) mg/dL Total Bilirubin 1.7 H (0.2-1.3) mg/dL AST 140 H (14-36) U/L ALT 48 H (4-34) U/L Alkaline Phosphatase 238 H (38-126) U/L NT-Pro-B Natriuret Pep 7310 pg/mL Total Protein 6.9 (6.3-8.2) g/dL Albumin 3.5 (3.5-5.0) g/dL Influenza Type A (PCR) (Not Detectd) Influenza Type B (PCR) (Not Detectd) RSV (PCR) (Not Detectd) SARS-CoV-2 (PCR) (Not Detectd) Disposition Clinical Impression: Congestive heart failure Disposition: ADMITTED IP TO THIS HOSP Is patient prescribed a controlled substance at d/c from ED?: No Referrals: Caleb Fisher Jr, [Primary Care Provider] - 1-2 days Time of Disposition: 11:54
[2025-05-01] MEDS: LORazepam 1 MG/0.5 ML VIAL IV STA (09:04)
[2025-05-01 09:11] LABS: Basophils # (A) 0.06 10*3/uL (0.00-0.10); Basophils % (A) 0.7 %; Eosinophils # (A) 0.01 10*3/uL (0.04-0.35); Eosinophils % (A) 0.1 %; HCT 40.6 % (37.2-46.3); HGB 14.1 g/dL (12.0-15.0); Lymphocytes # (A) 0.44 10*3/uL (0.90-5.00); Lymphocytes % (A) 5.4 %; MCH 36.2 pg (27.0-32.0); MCHC 34.7 g/dL (32.0-37.0); Mean Platelet Volume 10.1 fL (9.5-12.2); Monocytes # (A) 0.66 10*3/uL (0.20-1.00); Monocytes % (A) 8.1 %; Neutrophils % (A) 85.3 %; Platelet Count 110 10*3/uL (140-440); RBC 3.89 10*6/uL (4.10-5.20); RDW 13.1 % (11.5-14.5)
[2025-05-01 09:22] LABS: MCV 104.4 fL (80.0-97.0)
[2025-05-01 09:29] LABS: ALT 48 U/L (4-34); AST 140 U/L (14-36); African American GFR (CKD) >90 (>60 ml/min/1.73 sqM); Albumin 3.5 g/dL (3.5-5.0); Alkaline Phosphatase 238 U/L (38-126); Anion Gap 12 mmol/L; Blood Urea Nitrogen 21 mg/dL (7-17); Calcium 9.5 mg/dL (8.4-10.2); Carbon Dioxide 23 mmol/L (22-30); Chloride 103 mmol/L (98-107); Glucose 136 mg/dL (74-99); Magnesium 1.9 mg/dL (1.6-2.3); Non-African American GFR(CKD) 81 (>60 ml/min/1.73 sqM); Partial Thromboplastin Time 24.7 sec (22.0-30.0); Potassium 3.9 mmol/L (3.5-5.1); Prothrombin Time 10.7 sec (10.0-12.5); Sodium 138 mmol/L (137-145); Total Bilirubin 1.7 mg/dL (0.2-1.3); Total Protein 6.9 g/dL (6.3-8.2)
[2025-05-01 09:36] LABS: NT-Pro-B-Type Natriuretic Pept 7310 pg/mL
[2025-05-01] MEDS: IPRATROPIUM-ALBUTEROL 3 ML NEB INHALATION STA (09:36)
[2025-05-01 09:48] LABS: Influenza A Not Detected (Not Detectd); Influenza B Not Detected (Not Detectd); RSV Not Detected (Not Detectd)
--- NOTE | 2025-05-01 10:02 | XR ---
EXAMINATION TYPE: XR chest 2V DATE OF EXAM: 05/01/2025 9:36 AM COMPARISON: 06/27/2024 CLINICAL INDICATION: Female, 69 years old with history of difficulty breathing, TECHNIQUE: XR chest 2V view(s) obtained. FINDINGS: The heart size is normal. The pulmonary vasculature is prominent. Diffuse increased lung markings are present bilaterally. IMPRESSION: 1. Clinical correlation recommended for congestive heart failure. Follow-up recommended. [facility], , 05/01/2025 10:00 AM
--- NOTE | 2025-05-01 10:46 | CT ---
EXAMINATION TYPE: CT angio chest DATE OF EXAM: 05/01/2025 10:19 AM COMPARISON: 04/05/2023 CLINICAL INDICATION: Female, 69 years old with history of azam, Shortness of breath., TECHNIQUE: CT of the chest is performed on a spiral scan at 2 mm thick sections. Study is performed with intravenous contrast timed for evaluation for pulmonary embolism. This will limit additional po rtions of the evaluation. 10mm MIP images reconstructed by the technologist are reviewed on the comp uter in the coronal and sagittal planes. Contrast used:100ml mL of Isovue 370 with IV Contrast, (none if empty) Oral contrast used: (none if empty) CT DLP: 288.8 mGycm, Automated exposure control for dose reduction was used. FINDINGS: No persistent filling defects are evident to suggest an acute pulmonary embolism. No right heart stra in. There is a 1.9 cm lymph node in the pretracheal space at the level of the ashlyn The ascending aorta diameter at the level of the main pulmonary artery is 3.3 cm. The main pulmonary artery diameter at the bifurcation is 3.7 cm. Correlate for pulmonary hypertension. There is interval development of thickening in the retrocrural region extending posterior to the aort a. This area measures 3.2 x 3.8 cm. An additional soft tissue density is anterior to the aorta post erior to the esophagus measuring 3.2 cm. Series 401 image 80. Diffuse patchy groundglass opacities are present. Findings can be compatible with pulmonary edema sup erimposed on COPD. Posterior left lung splenic granuloma measuring 0.5 cm. No significant coronary artery calcifications. Limited CT sections were through the upper abdomen. Upper abdomen appears unremarkable. IMPRESSION: 1. No acute pulmonary embolism. 2. Diffuse groundglass opacities likely on the basis of pulmonary edema. 3. COPD. 4. New posterior retrocrural and lower paraesophageal masses. Some enlarged lymphadenopathy is within the mediastinum. Additional workup is recommended. [facility], , 05/01/2025 10:43 AM
[2025-05-01] MEDS: FUROSEMIDE 10 MG/ML 4 ML VIAL IV STA (11:08)
[2025-05-01] MEDS: ASPIRIN 325 MG TAB PO STA (12:07)
[2025-05-01] MEDS: NITROGLYCERIN OINT 1 INCH/GM PACKET TOPICAL SCH (12:08)
[2025-05-01] MEDS ORDERED: HEPARIN SODIUM 1,000 UN/ML (10ML VL) IV PRN (12:26)
[2025-05-01] MEDS: HEPARIN SODIUM 1,000 UN/ML (10ML VL) IV ONE (13:05)
[2025-05-01] MEDS: HEPARIN SOD,PORK IN 0.45% NACL 25,000 UNIT in 0.45% NACL 1 250ML.BAG IV SCH (13:06)
[2025-05-01] MEDS ORDERED: IPRATROPIUM-ALBUTEROL 3 ML NEB INHALATION PRN (14:07)
[2025-05-01] MEDS: FUROSEMIDE 10 MG/ML 4 ML VIAL IV SCH ×2 (15:26→22:01)
[2025-05-01] MEDS: SODIUM CHLORIDE 0.9% 500 ML 100 ML IV ONE (15:54)
[2025-05-01] MEDS: IPRATROPIUM-ALBUTEROL 3 ML NEB INHALATION SCH (16:13)
--- NOTE | 2025-05-01 16:46 | P.HPIM ---
History of Present Illness H&P Date: 05/01/25 Chief Complaint: Progressive shortness of breath This is a 69-year-old female with past medical history significant for metastatic esophageal cancer on Enhurtu chemo with serial echos every 6-8, recently discontinued related to adverse effects of CHF ,and reports she is sche duled to start a new chemo on Sunday at [place]. Reports yesterday she developed progressive shortness of breath and presented to the ED. on admission patient was in the low 90s on room air, tachypnic. Currently requiring 4 L nasal cannula to maintain O2 sats in the mid 90s. Afebrile, normal WBC. Denies chest pain, palpitations. Troponins 1.270, 0.810, 0.677. Heparin drip initiated in the ER. Lactic acid 3.2, 2.4, 2.9.. Hemoglobin 14.1, platelets 110. D-dimer 1.91,Chest CTA reported no acute PE, diffuse groundglass opacities, COPD, new posterior retrocrural and lower paraesophageal masses, some enlarged lymphadenopathy within the mediastinum. T. bili 1.7, AST 140, ALT 48, alk phos 238. proBNP 7310. Viral studies negative.Chest x-ray reported prominent pulmonary vasculature, diffuse increased lung markings present bilaterally, heart size normal. Blood pressures soft. Review of Systems ROS Statement: Those systems with pertinent positive or pertinent negative responses have been documented in the HPI. ROS Other: All systems not noted in ROS Statement are negative. Past Medical History Past Medical History: Cancer, COPD, GERD/Reflux, Hyperlipidemia, Hypertension, Osteoarthritis (OA), Pneumonia, Thyroid Disorder Additional Past Medical History / Comment(s): OVARIAN CANCER (DX 02/2015) LAST CHEMO March 2025, IBS,CHRONIC BACK PAIN, HX OF BRONCHITIS. cancer reoccurence - mass in esophagus and liver History of Any Multi-Drug Resistant Organisms: None Reported Past Surgical History: Cholecystectomy, Hysterectomy, Orthopedic Surgery, Tubal Ligation Additional Past Surgical History / Comment(s): PORT-A-CATH RT CHEST(04/2015),and removal of port, COLONOSCOPY,. EXCISION LIPOMA FROM ABD. WALL. Total Hysterectomy. LT FEMUR x2. knee replacement 03/2021 Past Anesthesia/Blood Transfusion Reactions: No Reported Reaction Additional Past Anesthesia/Blood Transfusion Reaction / Comment(s): NO COMPLICATIONS WITH BLOOD TRANSFUSION. Past Psychological History: Anxiety Smoking Status: Former smoker Past Alcohol Use History: None Reported Past Drug Use History: None Reported - Past Family History Mother Family Medical History: Cancer Additional Family Medical History / Comment(s): SQUAMOUS CELL CA-NECK. Father History Unknown: Yes Medications and Allergies Home Medications Medication Instructions Recorded Confirmed Type Levothyroxine Sodium [Synthroid] 88 mcg PO DAILY@0600 06/30/15 05/01/25 History Omeprazole 20 mg PO DAILY 06/30/15 05/01/25 History ALPRAZolam [Xanax] 0.25 mg PO BID PRN 07/31/17 05/01/25 History Pravastatin Sodium 80 mg PO HS 08/03/20 05/01/25 History Furosemide [Lasix] 20 mg PO BID@0700,1800 12/06/21 05/01/25 History Mirtazapine [Remeron] 15 mg PO HS 06/26/24 05/01/25 History Fluticasone Propion/Salmeterol 1 puff INHALATION RT-BID 05/01/25 05/01/25 History [Advair 250-50 Diskus] Losartan [Cozaar] 25 mg PO DAILY 05/01/25 05/01/25 History Magnesium Oxide [Mag-Ox] 400 mg PO DAILY 05/01/25 05/01/25 History Potassium Chloride ER [K-Dur 20] 20 meq PO DAILY 05/01/25 05/01/25 History Allergies Allergy/AdvReac Type Severity Reaction Status Date / Time amoxicillin Allergy Rash/Hives Verified 05/01/25 13:01 Physical Exam Vitals: Vital Signs Temp Pulse Resp BP Pulse Ox 05/01/25 15:15 77 20 88/59 91 L 05/01/25 12:00 79 20 96/43 95 05/01/25 11:11 85 26 H 97/70 94 L 05/01/25 09:53 87 20 120/75 92 L 05/01/25 09:47 80 05/01/25 09:36 76 05/01/25 09:33 32 H 05/01/25 09:07 98.2 F 83 26 H 120/75 94 L 05/01/25 08:29 97.8 F 92 22 106/90 90 L Intake and Output 05/01/25 05/01/25 05/01/25 06:59 14:59 22:59 Output Total 500 Balance -500 Output: Urine 500 Other: Weight 67.585 kg GENERAL: Alert and oriented x 3, sitting up on stretcher, no acute distress. HEAD: Atraumatic, normocephalic. NECK: Supple, no JVD LUNGS: Unlabored, equal air entry, clear to auscultation, no wheezes rales or rhonchi. HEART: Regular rate and rhythm without murmurs, rubs or gallops.S1S2 Normal ABDOMEN: Soft, nontender, normoactive bowel sounds. No guarding, no rebound. No masses appreciated. EXTREMITIES:no edema. No clubbing or cyanosis. NEUROLOGICAL: Cranial nerves II through XII grossly intact. Normal speech, normal gait. SKIN: Warm, Dry, normal turgor, no rashes noted. Results CBC & Chem 7: 05/03/25 08:20 05/04/25 06:44 Labs: Abnormal Lab Results - Last 24 Hours (Table) 05/01/25 05/01/25 05/01/25 Range/Units 08:46 08:46 08:46 RBC 3.89 L (4.10-5.20) 10*6/uL MCV 104.4 H D (80.0-97.0) fL MCH 36.2 H (27.0-32.0) pg Plt Count 110 L (140-440) 10*3/uL Lymphocytes # 0.44 L (0.90-5.00) 10*3/uL Eosinophils # 0.01 L (0.04-0.35) 10*3/uL D-Dimer 1.91 H (<0.60) mg/L FEU BUN 21 H (7-17) mg/dL Glucose 136 H (74-99) mg/dL Plasma Lactic Acid Freedom (0.7-2.0) mmol/L Total Bilirubin 1.7 H (0.2-1.3) mg/dL AST 140 H (14-36) U/L ALT 48 H (4-34) U/L Alkaline Phosphatase 238 H (38-126) U/L Troponin I (0.000-0.034) ng/mL 05/01/25 05/01/25 05/01/25 Range/Units 08:46 08:55 12:30 RBC (4.10-5.20) 10*6/uL MCV (80.0-97.0) fL MCH (27.0-32.0) pg Plt Count (140-440) 10*3/uL Lymphocytes # (0.90-5.00) 10*3/uL Eosinophils # (0.04-0.35) 10*3/uL D-Dimer (<0.60) mg/L FEU BUN (7-17) mg/dL Glucose (74-99) mg/dL Plasma Lactic Acid Freedom 3.2 H* (0.7-2.0) mmol/L Total Bilirubin (0.2-1.3) mg/dL AST (14-36) U/L ALT (4-34) U/L Alkaline Phosphatase (38-126) U/L Troponin I 1.270 H* 0.810 H* (0.000-0.034) ng/mL 05/01/25 Range/Units 12:30 RBC (4.10-5.20) 10*6/uL MCV (80.0-97.0) fL MCH (27.0-32.0) pg Plt Count (140-440) 10*3/uL Lymphocytes # (0.90-5.00) 10*3/uL Eosinophils # (0.04-0.35) 10*3/uL D-Dimer (<0.60) mg/L FEU BUN (7-17) mg/dL Glucose (74-99) mg/dL Plasma Lactic Acid Freedom 2.4 H* (0.7-2.0) mmol/L Total Bilirubin (0.2-1.3) mg/dL AST (14-36) U/L ALT (4-34) U/L Alkaline Phosphatase (38-126) U/L Troponin I (0.000-0.034) ng/mL Assessment and Plan Assessment: Diffuse bilateral interstitial, groundglass pulmonary opacities, possibly [id number] pneumonitis. CT reports new posterior retrocrural and lower paraesophageal masses, some enlarged lymphadenopathy within the mediastinum. Metastatic esophageal cancer, Enhertu chemo recently discontinued and reports she is scheduled to start a new chemo on Sunday. Possible acute CHF exacerbation, diastolic dysfunction, EF 55 to 60% Acute hypoxic respiratory failure secondary to the above Elevated troponins, trending down, possibly type II NSTEMI secondary to the above. Lactic acidosis Asthma, COPD chronic, secondary to the above, stable History of ovarian cancer status post resection and chemotherapy Former nicotine dependence Hypothyroidism Hypertension .....and multiple other medical issues. Plan: Continue on current medication regimen ,monitoring and symptomatic treatment. aggressive pulmonary toileting, nebulized bronchodilators ordered, potential steroids-defer to pulmonary. diurese with Lasix IV push, Aldactone ordered. Repeat lactic acid. aggressive pulmonary toileting with nebulized bronchodilators, Advair. maintain on heparin drip. Echo ordered. Cardiology,oncology and pulmonary consults in place with recommendations pending. Compression hose/sleeves. Prognosis guarded given multiple complex medical issues. The impression and plan of care has been dictated as directed. : I performed a history and examination of this patient, discussed the same with the dictator. I agree with the dictator's note ,documented as a scribe. Any a dditional findings or plans will be noted.
[2025-05-01] MEDS: PANTOPRAZOLE 40 MG TABLET PO SCH (17:05)
[2025-05-01] MEDS: SPIRONOLACTONE 25 MG TAB PO SCH (17:06)
--- NOTE | 2025-05-01 17:40 | CA ---
Transthoracic Echo Report Name: Joslyn Real Age: 69 Gender: F : 1955 Exam Date: 05/01/2025 14:18 Exam Location: [place] [facility] Ht (in): 64 Wt (lb): 149 Ordering Physician: Maykel Cruz DO Attending/Referring Phys: Software Developer Lis Beverly RDCS Procedure CPT: Indications: Heart failure Cardiac Hx: Technical Quality: Fair Contrast 1: Total Dose (mL): Contrast 2: Total Dose (mL): MEASUREMENTS (Male / Female) Normal Values 2D ECHO LV Diastolic Diameter PLAX 5.0 cm 4.2 - 5.9 / 3.9 - 5.3 cm LV Systolic Diameter PLAX 4.0 cm IVS Diastolic Thickness 0.9 cm 0.6 - 1.0 / 0.6 - 0.9 cm LVPW Diastolic Thickness 1.2 cm 0.6 - 1.0 / 0.6 - 0.9 cm LV Relative Wall Thickness 0.4 LVOT Diameter 2.3 cm LV Diastolic Volume MOD BP 62.8 cm??? 67 - 155 / 56 - 104 cm??? LV Systolic Volume MOD BP 23.6 cm??? 22 - 58 / 19 - 49 cm??? LV Ejection Fraction MOD BP 62.4 % >= 55 % LV Cardiac Index MOD BP 1760.4 cm???/min???m??? LV Diastolic Volume MOD 4C 67.3 cm??? LV Systolic Volume MOD 4C 22.9 cm??? LV Ejection Fraction MOD 4C 66.0 % LV Cardiac Index MOD 4C 1993.8 cm???/min???m??? LV Diastolic Length 4C 7.1 cm LV Systolic Length 4C 5.8 cm LV Diastolic Volume MOD 2C 53.8 cm??? LV Systolic Volume MOD 2C 22.4 cm??? LV Ejection Fraction MOD 2C 58.4 % LV Cardiac Index MOD 2C 1410.2 cm???/min???m??? LV Diastolic Length 2C 6.5 cm LV Systolic Length 2C 5.3 cm LA Volume 42.2 cm??? 18 - 58 / 22 - 52 cm??? LA Volume Index 24.0 cm???/m??? 16 - 28 cm???/m??? DOPPLER AV Peak Velocity 162.9 cm/s AV Peak Gradient 10.6 mmHg AV Mean Velocity 99.1 cm/s AV Mean Gradient 4.6 mmHg AV Velocity Time Integral 21.0 cm LVOT Peak Velocity 110.6 cm/s LVOT Peak Gradient 4.9 mmHg LVOT Velocity Time Integral 15.5 cm LVOT Stroke Volume 61.8 cm??? LVOT Stroke Volume Index 35.8 ml/m??? LVOT Cardiac Index 2773.8 cm???/min???m??? AV Area Cont Eq vti 2.9 cm??? AV Area Cont Eq pk 2.7 cm??? MV Area PHT 3.3 cm??? Mitral E Point Velocity 47.0 cm/s Mitral A Point Velocity 62.9 cm/s Mitral E to A Ratio 0.7 MV Deceleration Time 227.3 ms PV Peak Velocity 101.6 cm/s PV Peak Gradient 4.1 mmHg FINDINGS Left Ventricle Left ventricular ejection fraction is estimated at 60-65%. Mildly increased posterior wall thickness. Hyperdynamic left ventricular systolic function. No obvious regional wall motion abnormalities. Right Ventricle . Normal right ventricular global systolic function. Unable to estimate the right ventricular systolic pressure. Right Atrium Normal right atrial size. Left Atrium Normal left atrial size. Mitral Valve Structurally normal mitral valve. No mitral stenosis, regurgitation or prolapse. Aortic Valve Trileaflet aortic valve. No aortic stenosis. No aortic regurgitation. Tricuspid Valve Structurally normal tricuspid valve. No tricuspid stenosis. Trace tricuspid regurgitation. Pulmonic Valve Pulmonic valve not well visualized. No pulmonic stenosis. No pulmonic regurgitation. Pericardium Small pericardial effusion. Aorta Aortic annulus normal. CONCLUSIONS LVEF 60% No obvious regional wall motion abnormality Normal RV size and systolic function. No significant chamber size abnormality No significant valvular dysfunction Previewed by: Dr Ethan Etienne (Electronically Signed) Final Date: 01 May 2025 17:39
--- NOTE | 2025-05-01 17:58 | P.CONS ---
History of Present Illness - Reason for Consult Consult date: 05/01/25 Shortness of breath, metastatic esophageal cancer - History of Present Illness Ms. Real is a 69-year-old female with multiple comorbidities including history of ovarian cancer status post resection and chemotherapy. In 02/16, she was diagnosed with distal esophageal cancer, metastatic, and was started on palliative chemotherapy with FOLFOX and Herceptin completing 9 cycles. Due to intolerance, her regimen was changed to Herceptin and 5FU infusion only. The patient was subsequently changed to Enhertu on progression. She was on the same till about 03/20, at which time she developed progressive shortness of breath. She had CT scans of the chest done in the [facility], most recently in 03/20, that were concerning for pneumonitis, showing bilateral infiltrative changes and groundglass opacities, more prominent in the lung apices. As this is a known side effect of her regimen, that was discontinued, and the patient was placed on steroids. She completed her steroid taper in late 04/19, with improvement in her respiratory complaints The patient's subsequent imaging had shown evidence of progression, and the plan was to change her to Taxol and Cyramza, with cycle 1 scheduled to be given next week. The patient came into the ER, because of increased shortness of breath over the past 1 day. This was associated with increasing weakness and fatigue. She reports a mild cough without significant expectoration. She stated that last night, when her symptoms were getting worse, there was a definite orthopnea component. She was unable to lay flat but was able to breathe better when she elevated her head with 2 pillows She came to the ER due to progression of symptoms, with subsequent chest imaging with CXR and CTA suggesting congestive heart failure. Troponins were also elevated. The patient was started on Lasix, and admitted for further management. Labs otherwise showed normal CBC, and mild elevation of AST and ALT, moderate elevation of alkaline phosphatase Consult was therefore placed for further evaluation and recommendations. Review of Systems Constitutional: Reports fatigue, Reports weakness, Reports weight loss Eyes: denies blurred vision, denies pain Ears: deny: decreased hearing, ear discharge, earache, tinnitus Ears, nose, mouth and throat: Denies headache, Denies sore throat Cardiovascular: Reports orthopnea, Reports shortness of breath Respiratory: Reports dyspnea Gastrointestinal: Reports as per HPI Genitourinary: Denies dysuria, Denies hematuria Menstruation: Reports postmenopausal Musculoskeletal: Reports muscle weakness Integumentary: Denies pruritus, Denies rash Neurological: Reports weakness Psychiatric: Denies anxiety, Denies depression Endocrine: Reports fatigue, Reports weight change Hematologic/Lymphatic: Reports as per HPI Past Medical History Past Medical History: Cancer, COPD, GERD/Reflux, Hyperlipidemia, Hypertension, Osteoarthritis (OA), Pneumonia, Thyroid Disorder Additional Past Medical History / Comment(s): OVARIAN CANCER (DX 02/2015) LAST CHEMO March 2025, IBS,CHRONIC BACK PAIN, HX OF BRONCHITIS. cancer reoccurence - mass in esophagus and liver History of Any Multi-Drug Resistant Organisms: None Reported Past Surgical History: Cholecystectomy, Hysterectomy, Orthopedic Surgery, Tubal Ligation Additional Past Surgical History / Comment(s): PORT-A-CATH RT CHEST(04/2015),and removal of port, COLONOSCOPY,. EXCISION LIPOMA FROM ABD. WALL. Total Hysterectomy. LT FEMUR x2. knee replacement 03/2021 Past Anesthesia/Blood Transfusion Reactions: No Reported Reaction Additional Past Anesthesia/Blood Transfusion Reaction / Comm: NO COMPLICATIONS WITH BLOOD TRANSFUSION. Past Psychological History: Anxiety Smoking Status: Former smoker Past Alcohol Use History: None Reported Past Drug Use History: None Reported - Past Family History Mother Family Medical History: Cancer Additional Family Medical History / Comment(s): SQUAMOUS CELL CA-NECK. Father History Unknown: Yes Medications and Allergies Home Medications Medication Instructions Recorded Confirmed Type Levothyroxine Sodium [Synthroid] 88 mcg PO DAILY@0600 06/30/15 05/01/25 History Omeprazole 20 mg PO DAILY 06/30/15 05/01/25 History ALPRAZolam [Xanax] 0.25 mg PO BID PRN 07/31/17 05/01/25 History Pravastatin Sodium 80 mg PO HS 08/03/20 05/01/25 History Furosemide [Lasix] 20 mg PO BID@0700,1800 12/06/21 05/01/25 History Mirtazapine [Remeron] 15 mg PO HS 06/26/24 05/01/25 History Fluticasone Propion/Salmeterol 1 puff INHALATION RT-BID 05/01/25 05/01/25 History [Advair 250-50 Diskus] Losartan [Cozaar] 25 mg PO DAILY 05/01/25 05/01/25 History Magnesium Oxide [Mag-Ox] 400 mg PO DAILY 05/01/25 05/01/25 History Potassium Chloride ER [K-Dur 20] 20 meq PO DAILY 05/01/25 05/01/25 History Allergies Allergy/AdvReac Type Severity Reaction Status Date / Time amoxicillin Allergy Rash/Hives Verified 05/01/25 13:01 Physical Exam Vitals: Vital Signs Temp Pulse Resp BP Pulse Ox FiO2 05/01/25 16:37 93 L 40 05/01/25 16:36 84 05/01/25 16:13 81 05/01/25 16:07 82 24 98/65 89 L 05/01/25 15:15 77 20 88/59 91 L 05/01/25 12:00 79 20 96/43 95 05/01/25 11:11 85 26 H 97/70 94 L 05/01/25 09:53 87 20 120/75 92 L 05/01/25 09:47 80 05/01/25 09:36 76 05/01/25 09:33 32 H 05/01/25 09:07 98.2 F 83 26 H 120/75 94 L 05/01/25 08:29 97.8 F 92 22 106/90 90 L Intake and Output 05/01/25 05/01/25 05/01/25 06:59 14:59 22:59 Output Total 500 Balance -500 Output: Urine 500 Other: Weight 67.585 kg - Constitutional General appearance: mild distress (due to SOB) - EENT Eyes: EOMI, PERRLA ENT: hearing grossly normal, normal oropharynx - Neck Neck: no lymphadenopathy Thyroid: bilateral: normal size - Respiratory Respiratory: bilateral: rales - Cardiovascular Rhythm: regular Heart sounds: normal: S1, S2 - Gastrointestinal General gastrointestinal: normal bowel sounds, soft - Integumentary Integumentary: decreased turgor, normal - Neurologic Neurologic: CNII-XII intact, focal deficits - Musculoskeletal Musculoskeletal: generalized weakness, strength equal bilaterally - Psychiatric Psychiatric: A&O x's 3, appropriate affect Results CBC & Chem 7: 05/01/25 08:46 05/01/25 08:46 Labs: Abnormal Lab Results - Last 24 Hours (Table) 05/01/25 05/01/25 05/01/25 Range/Units 08:46 08:46 08:46 RBC 3.89 L (4.10-5.20) 10*6/uL MCV 104.4 H D (80.0-97.0) fL MCH 36.2 H (27.0-32.0) pg Plt Count 110 L (140-440) 10*3/uL Lymphocytes # 0.44 L (0.90-5.00) 10*3/uL Eosinophils # 0.01 L (0.04-0.35) 10*3/uL D-Dimer 1.91 H (<0.60) mg/L FEU BUN 21 H (7-17) mg/dL Glucose 136 H (74-99) mg/dL Plasma Lactic Acid Freedom (0.7-2.0) mmol/L Total Bilirubin 1.7 H (0.2-1.3) mg/dL AST 140 H (14-36) U/L ALT 48 H (4-34) U/L Alkaline Phosphatase 238 H (38-126) U/L Troponin I (0.000-0.034) ng/mL 05/01/25 05/01/25 05/01/25 Range/Units 08:46 08:55 12:30 RBC (4.10-5.20) 10*6/uL MCV (80.0-97.0) fL MCH (27.0-32.0) pg Plt Count (140-440) 10*3/uL Lymphocytes # (0.90-5.00) 10*3/uL Eosinophils # (0.04-0.35) 10*3/uL D-Dimer (<0.60) mg/L FEU BUN (7-17) mg/dL Glucose (74-99) mg/dL Plasma Lactic Acid Freedom 3.2 H* (0.7-2.0) mmol/L Total Bilirubin (0.2-1.3) mg/dL AST (14-36) U/L ALT (4-34) U/L Alkaline Phosphatase (38-126) U/L Troponin I 1.270 H* 0.810 H* (0.000-0.034) ng/mL 05/01/25 05/01/25 05/01/25 Range/Units 12:30 15:14 15:32 RBC (4.10-5.20) 10*6/uL MCV (80.0-97.0) fL MCH (27.0-32.0) pg Plt Count (140-440) 10*3/uL Lymphocytes # (0.90-5.00) 10*3/uL Eosinophils # (0.04-0.35) 10*3/uL D-Dimer (<0.60) mg/L FEU BUN (7-17) mg/dL Glucose (74-99) mg/dL Plasma Lactic Acid Freedom 2.4 H* 2.9 H* (0.7-2.0) mmol/L Total Bilirubin (0.2-1.3) mg/dL AST (14-36) U/L ALT (4-34) U/L Alkaline Phosphatase (38-126) U/L Troponin I 0.677 H* (0.000-0.034) ng/mL Chest x-ray: report reviewed CT scan - chest: report reviewed Assessment and Plan (1) Congestive heart failure Narrative/Plan: The patient clinical presentation appears to be suggestive of the same. Her CT chest showed bilateral groundglass opacities, read as vascular congestion. 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 scans were not done in the system, and therefore are not available for comparison. Therefore based on imaging alone it was difficult to state if her symptoms are due to congestive heart failure, versus recurrent interstitial pneumonitis. - However given the elevated troponin, as well as physical findings of bilateral fluid type crackles, CHF appears to be more likely. - Cardiology has been consulted. Their evaluation is in progress. Echocardiogram performed. Await report - If the patient does not improve with adequate treatment for CHF, we will need to consider repeat trial of steroids - Her prior cancer treatment with anti-HER2 therapy can cause congestive heart failure, although that is less likely, given that her last treatment was about 6 weeks ago. Typically that would be manifested by decreased ejection fraction on echocardiogram, without troponin elevation. Current Visit: Yes Status: Acute Code(s): I50.9 - HEART FAILURE, UNSPECIFIED SNOMED Code(s): 44089538 (2) Esophageal adenocarcinoma Narrative/Plan: Diagnostic and therapeutic circumstances as described above. Patient is to start her new regimen next week. This will be delayed as appropriate, till her acute condition resolves. Current Visit: No Status: Acute Priority: High Code(s): C15.9 - MALIGNANT NEOPLASM OF ESOPHAGUS, UNSPECIFIED SNOMED Code(s): 504715344
[2025-05-01] MEDS: SYMBICORT 80-4.5 MCG INHALER INHALATION SCH (19:23)
[2025-05-01] MEDS: PRAVASTATIN SODIUM 80 MG TAB PO SCH (22:01)
[2025-05-01] MEDS: ALPRAZolam 0.25 MG TAB PO PRN (22:01)
[2025-05-01] MEDS: MIRTAZAPINE 15 MG TAB PO SCH (22:01)
[2025-05-01] MEDS: diphenhydrAMINE 25 MG CAP PO SCH (23:59)
[2025-05-02 05:39] LABS: Basophils # (A) 0.06 10*3/uL (0.00-0.10); Basophils % (A) 0.8 %; Eosinophils # (A) 0.14 10*3/uL (0.04-0.35); Eosinophils % (A) 1.8 %; HCT 36.7 % (37.2-46.3); HGB 12.8 g/dL (12.0-15.0); Lymphocytes # (A) 0.72 10*3/uL (0.90-5.00); Lymphocytes % (A) 9.2 %; MCHC 34.9 g/dL (32.0-37.0); MCV 103.1 fL (80.0-97.0); Mean Platelet Volume 10.6 fL (9.5-12.2); Monocytes % (A) 10.3 %; Neutrophils # (A) 6.05 10*3/uL (1.80-7.70); Neutrophils % (A) 77.5 %; Platelet Count 117 10*3/uL (140-440); RBC 3.56 10*6/uL (4.10-5.20); RDW 12.9 % (11.5-14.5)
[2025-05-02] MEDS: LEVOTHYROXINE 88 MCG TAB PO SCH (05:52)
[2025-05-02 06:06] LABS: INR 1.1 (<1.2); Prothrombin Time 11.8 sec (10.0-12.5)
[2025-05-02 06:54] LABS: ALT 46 U/L (4-34); AST 125 U/L (14-36); African American GFR (CKD) 87 (>60 ml/min/1.73 sqM); Albumin 2.9 g/dL (3.5-5.0); Alkaline Phosphatase 203 U/L (38-126); Anion Gap 12 mmol/L; Blood Urea Nitrogen 26 mg/dL (7-17); Calcium 9.3 mg/dL (8.4-10.2); Carbon Dioxide 22 mmol/L (22-30); Chloride 103 mmol/L (98-107); Glucose 95 mg/dL (74-99); Magnesium 1.8 mg/dL (1.6-2.3); Non-African American GFR(CKD) 75 (>60 ml/min/1.73 sqM); Potassium 3.1 mmol/L (3.5-5.1); Sodium 137 mmol/L (137-145); Total Bilirubin 1.1 mg/dL (0.2-1.3); Total Protein 5.9 g/dL (6.3-8.2)
[2025-05-02 09:15] LABS: Basophils # (A) 0.05 10*3/uL (0.00-0.10); Basophils % (A) 0.6 %; Eosinophils # (A) 0.17 10*3/uL (0.04-0.35); HCT 38.7 % (37.2-46.3); HGB 13.4 g/dL (12.0-15.0); Lymphocytes # (A) 0.86 10*3/uL (0.90-5.00); Lymphocytes % (A) 10.4 %; MCH 36.6 pg (27.0-32.0); MCHC 34.6 g/dL (32.0-37.0); MCV 105.7 fL (80.0-97.0); Mean Platelet Volume 10.4 fL (9.5-12.2); Monocytes # (A) 0.82 10*3/uL (0.20-1.00); Monocytes % (A) 9.9 %; Neutrophils # (A) 6.38 10*3/uL (1.80-7.70); Neutrophils % (A) 76.9 %; Platelet Count 117 10*3/uL (140-440); RBC 3.66 10*6/uL (4.10-5.20); RDW 13.2 % (11.5-14.5)
[2025-05-02] MEDS: ASPIRIN 325 MG TAB PO SCH (09:25)
[2025-05-02] MEDS: MAGNESIUM OXIDE 400 MG TAB PO SCH (09:25)
[2025-05-02 09:33] LABS: Anisocytosis (M) Present; Poikilocytosis (M) Present; Polychromasia Present
[2025-05-02] MEDS: LORazepam 0.5 MG TAB PO PRN (10:35)
--- NOTE | 2025-05-02 12:19 | P.CNPUL ---
History of Present Illness Consult date: 05/02/25 History of present illness: On 05/02/2025, the patient is being seen in consult regarding acute hypoxic respiratory failure and development of diffuse bilateral pulmonary infiltrates. 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 The patient was started on palliative chemotherapy with FOLFOX and Herceptin completing 9 cycles. Due to intolerance, her regimen was changed to Herceptin and 5FU infusion only. The patient was s ubsequently changed to Enhertu on progression. She was on the same till about 03/20, at which time she developed progressive shortness of breath. She had CT scans of the chest done in the [facility] system, most recently in 03/20, that were concerning for pneumonitis, showing bilateral infiltrative changes and groundglass opacities, more prominent in the lung apices. As this is a known side effect of her regimen, that was discontinued, and the patient was placed on steroids. She completed her steroid taper in late 04/19, with improvement in her respiratory complaintsThe patient's subsequent imaging had shown evidence of progression, and the plan was to change her to Taxol and Cyramza, with cycle 1 scheduled to be given next week. The patient came into the emergency department having worsening shortness of breath. She is currently on oxygen and 8 L/min nasal cannula. The blood work showed a WBC count of 7.8 with hemoglobin 12.8 and platelet count 117. BUN is 26 pg 0.8. Lactic acid level was at 2.8 at 1.5. Sodium is 137 and potassium is at 3.1. LFTs are mildly elevated and the pa tient's proBNP level was 7310. Troponins were 1.2 and 0.80.6 respectively x 3. No history of any cardiac disease. The patient had an echocardiogram done on 05/01/2025 and the patient was found to have a normal left-ventricular ejection fraction with hyperdynamic LV without any significant valvular abnormalities. CT of the chest was also done and the patient was found to have no evidence of any filling defects to indicate pulmonary embolism. There is also mediastinal lymphadenopathy largest in the pretracheal space and at the level of ashlyn. There is also thickening of the retrocrural region extending posterior to the aorta and an area measuring 3.2 x 0.8 cm in size and soft tissue density anterior to the aorta and posterior to the esophagus measuring 3.2 cm in size, consistent with metastatic disease. However, there is diffuse patchy groundglass pulm infiltrates throughout the lung pearl bilaterally and some background COPD. The patient is a former smoker. The patient is started on IV heparin. The patient is also on IV Lasix. She is producing good urine output while being on Lasix 40 mg every 12 hours. Nevertheless, oxygenation remains unchanged. Review of Systems Constitutional: Reports as per HPI, Reports fatigue Eyes: denies as per HPI, denies blurred vision, denies bulging eye, denies decreased vision, denies diplopia, denies discharge, denies dry eye, denies irritation, denies itching, denies pain, denies photophobia, denies loss of peripheral vision, denies loss of vision, denies tunnel vision/blind spots Ears: deny: decreased hearing, ear discharge, earache, tinnitus Ears, nose, mouth and throat: Reports as per HPI Breasts: absent: as per HPI, change in shape, gynecomastia, masses, nipple discharge, pain, skin changes, swelling Cardiovascular: Reports decreased exercise tolerance, Reports dyspnea on exertion Respiratory: Reports dyspnea Gastrointestinal: Reports as per HPI Genitourinary: Reports as per HPI Menstruation: Reports as per HPI Musculoskeletal: Reports as per HPI, Reports muscle weakness Musculoskeletal: absent: ankle pain, ankle stiffness, ankle swelling, as per HPI, elbow pain, elbow stiffness, elbow swelling, foot pain, foot stiffness, foot swelling, hand pain, hand stiffness, hand swelling, hip pain, hip stiffne ss, hip swelling, knee pain, knee stiffness, knee swelling, shoulder pain, shoulder stiffness, shoulder swelling, wrist pain, wrist stiffness, wrist swelling Integumentary: Reports as per HPI Neurological: Reports as per HPI Psychiatric: Reports as per HPI Endocrine: Reports as per HPI Hematologic/Lymphatic: Reports as per HPI Allergic/Immunologic: Reports as per HPI Past Medical History Past Medical History: Cancer, COPD, GERD/Reflux, Hyperlipidemia, Hypertension, Osteoarthritis (OA), Thyroid Disorder Additional Past Medical History / Comment(s): OVARIAN CANCER (DX 02/2015) LAST CHEMO March 2025, IBS,CHRONIC BACK PAIN, HX OF BRONCHITIS. cancer reoccurence - mass in esophagus and liver History of Any Multi-Drug Resistant Organisms: None Reported Past Surgical History: Cholecystectomy, Hysterectomy, Orthopedic Surgery, Tubal Ligation Additional Past Surgical History / Comment(s): PORT-A-CATH RT CHEST(04/2015),and removal of port, COLONOSCOPY,. EXCISION LIPOMA FROM ABD. WALL. Total Hysterectomy. LT FEMUR x2. knee replacement 03/2021 Past Anesthesia/Blood Transfusion Reactions: No Reported Reaction Additional Past Anesthesia/Blood Transfusion Reaction / Comment(s): NO COMPLICATIONS WITH BLOOD TRANSFUSION. Past Psychological History: Anxiety Smoking Status: Former smoker Past Alcohol Use History: None Reported Additional Past Alcohol Use History / Comment(s): QUIT SMOKING 2004,STARTED 1984. SMOKED LESS THAN 1 PPD. DRINKS 3 PER WEEK, NO ALCOHOL IN THE LAST COUPLE WEEKS. Past Drug Use History: None Reported - Past Family History Mother Family Medical History: Cancer Additional Family Medical History / Comment(s): SQUAMOUS CELL CA-NECK. Father History Unknown: Yes Medications and Allergies Home Medications Medication Instructions Recorded Confirmed Type Levothyroxine Sodium [Synthroid] 88 mcg PO DAILY@0600 06/30/15 05/01/25 History Omeprazole 20 mg PO DAILY 06/30/15 05/01/25 History ALPRAZolam [Xanax] 0.25 mg PO BID PRN 07/31/17 05/01/25 History Pravastatin Sodium 80 mg PO HS 08/03/20 05/01/25 History Furosemide [Lasix] 20 mg PO BID@0700,1800 12/06/21 05/01/25 History Mirtazapine [Remeron] 15 mg PO HS 06/26/24 05/01/25 History Fluticasone Propion/Salmeterol 1 puff INHALATION RT-BID 05/01/25 05/01/25 History [Advair 250-50 Diskus] Losartan [Cozaar] 25 mg PO DAILY 05/01/25 05/01/25 History Magnesium Oxide [Mag-Ox] 400 mg PO DAILY 05/01/25 05/01/25 History Potassium Chloride ER [K-Dur 20] 20 meq PO DAILY 05/01/25 05/01/25 History Allergies Allergy/AdvReac Type Severity Reaction Status Date / Time amoxicillin Allergy Rash/Hives Verified 05/01/25 13:01 Physical Exam Vitals: Vital Signs Temp Pulse Pulse Resp BP BP Pulse Ox 05/02/25 08:49 93 L 05/02/25 08:47 85 05/02/25 08:37 85 05/02/25 08:17 98 F 79 20 110/69 93 L 05/02/25 04:55 84 20 101/62 94 L 05/01/25 23:50 85 20 103/69 91 L 05/01/25 21:19 98.0 F 88 22 104/62 93 L 05/01/25 19:51 92 17 105/59 93 L 05/01/25 19:40 88 05/01/25 19:27 86 86 L 05/01/25 18:08 87 18 101/65 93 L 05/01/25 16:37 93 L 05/01/25 16:36 84 05/01/25 16:13 81 05/01/25 16:07 82 24 98/65 89 L 05/01/25 15:15 77 20 88/59 91 L 05/01/25 12:00 79 20 96/43 95 05/01/25 11:11 85 26 H 97/70 94 L 05/01/25 09:53 87 20 120/75 92 L 05/01/25 09:47 80 05/01/25 09:36 76 05/01/25 09:33 32 H FiO2 05/02/25 08:49 05/02/25 08:47 05/02/25 08:37 05/02/25 08:17 05/02/25 04:55 05/01/25 23:50 05/01/25 21:19 05/01/25 19:51 05/01/25 19:40 05/01/25 19:27 40 05/01/25 18:08 05/01/25 16:37 40 05/01/25 16:36 05/01/25 16:13 05/01/25 16:07 05/01/25 15:15 05/01/25 12:00 05/01/25 11:11 05/01/25 09:53 05/01/25 09:47 05/01/25 09:36 05/01/25 09:33 Intake and Output 05/01/25 05/02/25 05/02/25 22:59 06:59 14:59 Intake Total 120 Output Total 1000 Balance -1000 120 Intake: Oral 120 Output: Urine 1000 Other: Voiding Method External Catheter External Catheter # Voids 1 # Bowel Movements 1 Weight 67.585 kg 57.8 kg The patient appeared well nourished and normally developed. Vital signs as documented. The patient is anxious. The patient has a body mass index of 21.9. The patient is currently on 8 L of O2 nasal cannula. Head exam is unremarkable. No scleral icterus or corneal arcus noted. Neck is without jugular venous distension, thyromegaly, or carotid bruits. Carotid upstrokes are brisk bilaterally. Lungs are clear to auscultation and percussion. Crackles are somewhat coarse in the midline lower lung pearl bilaterally. Cardiac exam reveals the PMI to be normally sized and situated. Rhythm is regular. First and second heart sounds normal. No murmurs, rubs or gallops. Abdominal exam reveals normal bowel sounds, no masses, no organomegaly and no aortic enlargement. Extremities are nonedematous and both femoral and pedal pulses are normal. Examination of the skin revealed no evidence of significant rashes, suspicious appearing nevi or other concerning lesions. Neurologically, the patient is awake and alert and the patient does not have any focal neurological deficit. Cranial nerves are essentially intact. Results - Laboratory Findings CBC and BMP: 05/02/25 07:57 05/02/25 05:02 PT/INR, D-dimer PT 11.8 sec (10.0-12.5) 05/02/25 05:02 INR 1.1 (<1.2) 05/02/25 05:02 D-Dimer 1.91 mg/L FEU (<0.60) H 05/01/25 08:46 Abnormal lab findings: Abnormal Labs 05/01/25 05/01/25 05/01/25 08:46 08:46 08:46 RBC 3.89 L Hct MCV 104.4 H D MCH 36.2 H Plt Count 110 L Lymphocytes # 0.44 L Eosinophils # 0.01 L APTT D-Dimer 1.91 H Potassium BUN 21 H Glucose 136 H Plasma Lactic Acid Freedom Total Bilirubin 1.7 H AST 140 H ALT 48 H Alkaline Phosphatase 238 H Troponin I Total Protein Albumin 05/01/25 05/01/25 05/01/25 08:46 08:55 12:30 RBC Hct MCV MCH Plt Count Lymphocytes # Eosinophils # APTT D-Dimer Potassium BUN Glucose Plasma Lactic Acid Freedom 3.2 H* Total Bilirubin AST ALT Alkaline Phosphatase Troponin I 1.270 H* 0.810 H* Total Protein Albumin 05/01/25 05/01/25 05/01/25 12:30 15:14 15:32 RBC Hct MCV MCH Plt Count Lymphocytes # Eosinophils # APTT D-Dimer Potassium BUN Glucose Plasma Lactic Acid Freedom 2.4 H* 2.9 H* Total Bilirubin AST ALT Alkaline Phosphatase Troponin I 0.677 H* Total Protein Albumin 05/01/25 05/01/25 05/01/25 19:00 19:02 22:30 RBC Hct MCV MCH Plt Count Lymphocytes # Eosinophils # APTT 54.4 H D-Dimer Potassium BUN Glucose Plasma Lactic Acid Freedom 3.2 H* 2.3 H* Total Bilirubin AST ALT Alkaline Phosphatase Troponin I Total Protein Albumin 05/02/25 05/02/25 05/02/25 05:02 05:02 07:57 RBC 3.56 L 3.66 L Hct 36.7 L MCV 103.1 H 105.7 H MCH 36.0 H 36.6 H Plt Count 117 L 117 L Lymphocytes # 0.72 L Eosinophils # APTT D-Dimer Potassium 3.1 L BUN 26 H Glucose Plasma Lactic Acid Freedom Total Bilirubin AST 125 H ALT 46 H Alkaline Phosphatase 203 H Troponin I Total Protein 5.9 L Albumin 2.9 L 05/02/25 07:57 RBC Hct MCV MCH Plt Count Lymphocytes # Eosinophils # APTT 53.7 H D-Dimer Potassium BUN Glucose Plasma Lactic Acid Freedom Total Bilirubin AST ALT Alkaline Phosphatase Troponin I Total Protein Albumin - Diagnostic Findings Chest x-ray: image reviewed CT scan - chest: image reviewed Assessment and Plan Plan: Acute hypoxic respiratory failure, currently on 8 L of oxygen by nasal cannula. The patient developed diffuse bilateral interstitial and groundglass pulm infiltrates with areas of consolidation very much consistent with drug-induced pneumonitis. Suspect Enhertu related pneumonitis. ENHERTU (fam-trastuzumab deruxtecan-nxki) can cause interstitial lung disease (ILD) and pneumonitis, which can be serious, life-threatening, or even fatal. In a pooled analysis of studies, ILD/pneumonitis occurred in 15.4% of patients treated with ENHERTU Acute shortness of breath secondary to above Metastatic esophageal cancer with development of esophageal and mediastinal lymphadenopathy COPD Acute NSTEMI, troponins are downtrending and the patient is currently on IV heparin. Echocardiogram shows a preserved LV function. History of ovarian cancer Chronic anxiety Chronic back pain Hypertension Hyperlipidemia Former smoker Plan Will discuss the case with medical oncology. Recommend steroids and the patient should be placed on IV Solu-Medrol. She is a bit hesitant as the patient has experienced side effects to steroids in the past. However, this will be crucial in optimizing respiratory status. Continue IV Lasix Continue IV heparin cardiology consultations been obtained and echocardiogram wa s noted Continue Aldactone Utilize Xanax for anxiety Will continue to follow Will be crucial also to obtain prior CAT scans of the chest that were done in the [place] facility for comparison and the family was made aware of. Time with Patient: Greater than 30
[2025-05-02 13:27] LABS: Appearance,Urine Cloudy (Clear); Bacteria,Urine Occasional /hpf; Bilirubin,Urine Negative (Negative); Blood,Urine Negative (Negative); Color,Urine Colorless; Glucose,Urine (UA) Negative (Negative); Hyaline Casts,Urine 3 /lpf (0-2); Ketones,Urine Negative (Negative); Leukocyte Esterase,Urine Large (Negative); Mucus,Urine Rare /hpf; Nitrite,Urine Negative (Negative); Protein,Urine Negative (Negative); RBC,Urine 12 /hpf (0-5); Specific Gravity,Urine 1.009 (1.001-1.035); Squamous Epithelial Cell,Urine <1 /hpf (0-4); Urobilinogen,Urine <2.0 mg/dL (<2.0); WBC,Urine 45 /hpf (0-5)
--- NOTE | 2025-05-02 13:41 | P.PN ---
Subjective May 02, 2025: Cesario is reevaluated for acute hypoxic respiratory failure. Initially thought to be due to CHF possibly from her medication for chemotherapy for her metastatic esophageal carcinoma. She is currently on spironolactone and IV Lasix. Has abnormal troponins consistent with NSTEMI. Vital signs show she is afebrile heart rate is normal pulse oximetry is 92% on 8 L of O2 via nasal cannula. Laboratory studies show no white count she is macrocytic. Plasma lactic acid have been elevated. Her beta natruretic peptide was 7310. Urinaly sis showed large leukocytes and was cloudy with occasional bacteria and cyst. COVID flu and RSV are negative. Cardiogram shows LV EF 60% with no motion abnormalities. Consults from oncology and pulmonology were reviewed today. Objective - Vital Signs Vital signs: Vital Signs Temp 97.8 F 05/02/25 12:22 Pulse 87 05/02/25 12:22 Resp 20 05/02/25 12:22 BP 112/72 05/02/25 12:22 Pulse Ox 92 L 05/02/25 12:22 FiO2 40 05/01/25 19:27 Intake & Output 05/01/25 05/02/25 05/02/25 18:59 06:59 18:59 Intake Total 120 Output Total 500 1000 150 Balance -500 -1000 -30 Weight 67.585 kg 57.8 kg Intake: Oral 120 Output: Urine 500 1000 150 Other: Voiding Method External Catheter # Voids 1 # Bowel Movements 1 - Exam General: The patient is awake and alert, in no distress, and does not appear acutely ill. She has nasal cannula oxygen at 8 L/min Neck: The neck is supple, there is no thyromegaly, lymphadenopathy, tenderness or JVD. Cardiovascular: S1S2 is normal, There is a regular rate and rhythm. No murmur, rub or gallop is appreciated. Respiratory: Lungs are diminished, no active wheezes rales or crackles Gastrointestinal: Soft, non-distended, non-tender abdomen without masses or organomegaly noted. There is no rebound or guarding present. Bowel sounds are unremarkable. Musculoskeletal: Normal ROM, no tenderness, There is no pedal edema. There is no calf tenderness or swelling. No cords were appreciated. Neurological: CN II-XII intact, there are no obvious motor or sensory deficits. Coordination appears grossly intact. Speech is normal. There is significant pain to the ankles and feet with light touch Skin: Skin is warm and dry and no rashes or lesions are noted. - Labs CBC & Chem 7: 05/02/25 07:57 05/02/25 05:02 Labs: Abnormal Lab Results - Last 24 Hours (Table) 05/01/25 05/01/25 05/01/25 Range/Units 15:14 15:32 19:00 RBC (4.10-5.20) 10*6/uL Hct (37.2-46.3) % MCV (80.0-97.0) fL MCH (27.0-32.0) pg Plt Count (140-440) 10*3/uL Lymphocytes # (0.90-5.00) 10*3/uL APTT (22.0-30.0) sec Potassium (3.5-5.1) mmol/L BUN (7-17) mg/dL Plasma Lactic Acid Freedom 2.9 H* 3.2 H* (0.7-2.0) mmol/L AST (14-36) U/L ALT (4-34) U/L Alkaline Phosphatase (38-126) U/L Troponin I 0.677 H* (0.000-0.034) ng/mL Total Protein (6.3-8.2) g/dL Albumin (3.5-5.0) g/dL Urine Appearance (Clear) Ur Leukocyte Esterase (Negative) Urine RBC (0-5) /hpf Urine WBC (0-5) /hpf Urine Bacteria (None) /hpf Hyaline Casts (0-2) /lpf Urine Mucus (None) /hpf 05/01/25 05/01/25 05/02/25 Range/Units 19:02 22:30 05:02 RBC 3.56 L (4.10-5.20) 10*6/uL Hct 36.7 L (37.2-46.3) % MCV 103.1 H (80.0-97.0) fL MCH 36.0 H (27.0-32.0) pg Plt Count 117 L (140-440) 10*3/uL Lymphocytes # 0.72 L (0.90-5.00) 10*3/uL APTT 54.4 H (22.0-30.0) sec Potassium (3.5-5.1) mmol/L BUN (7-17) mg/dL Plasma Lactic Acid Freedom 2.3 H* (0.7-2.0) mmol/L AST (14-36) U/L ALT (4-34) U/L Alkaline Phosphatase (38-126) U/L Troponin I (0.000-0.034) ng/mL Total Protein (6.3-8.2) g/dL Albumin (3.5-5.0) g/dL Urine Appearance (Clear) Ur Leukocyte Esterase (Negative) Urine RBC (0-5) /hpf Urine WBC (0-5) /hpf Urine Bacteria (None) /hpf Hyaline Casts (0-2) /lpf Urine Mucus (None) /hpf 05/02/25 05/02/25 05/02/25 Range/Units 05:02 07:57 07:57 RBC 3.66 L (4.10-5.20) 10*6/uL Hct (37.2-46.3) % MCV 105.7 H (80.0-97.0) fL MCH 36.6 H (27.0-32.0) pg Plt Count 117 L (140-440) 10*3/uL Lymphocytes # 0.86 L (0.90-5.00) 10*3/uL APTT 53.7 H (22.0-30.0) sec Potassium 3.1 L (3.5-5.1) mmol/L BUN 26 H (7-17) mg/dL Plasma Lactic Acid Freedom (0.7-2.0) mmol/L AST 125 H (14-36) U/L ALT 46 H (4-34) U/L Alkaline Phosphatase 203 H (38-126) U/L Troponin I (0.000-0.034) ng/mL Total Protein 5.9 L (6.3-8.2) g/dL Albumin 2.9 L (3.5-5.0) g/dL Urine Appearance (Clear) Ur Leukocyte Esterase (Negative) Urine RBC (0-5) /hpf Urine WBC (0-5) /hpf Urine Bacteria (None) /hpf Hyaline Casts (0-2) /lpf Urine Mucus (None) /hpf 05/02/25 Range/Units 12:41 RBC (4.10-5.20) 10*6/uL Hct (37.2-46.3) % MCV (80.0-97.0) fL MCH (27.0-32.0) pg Plt Count (140-440) 10*3/uL Lymphocytes # (0.90-5.00) 10*3/uL APTT (22.0-30.0) sec Potassium (3.5-5.1) mmol/L BUN (7-17) mg/dL Plasma Lactic Acid Freedom (0.7-2.0) mmol/L AST (14-36) U/L ALT (4-34) U/L Alkaline Phosphatase (38-126) U/L Troponin I (0.000-0.034) ng/mL Total Protein (6.3-8.2) g/dL Albumin (3.5-5.0) g/dL Urine Appearance Cloudy H (Clear) Ur Leukocyte Esterase Large H (Negative) Urine RBC 12 H (0-5) /hpf Urine WBC 45 H (0-5) /hpf Urine Bacteria Occasional H (None) /hpf Hyaline Casts 3 H (0-2) /lpf Urine Mucus Rare H (None) /hpf Assessment and Plan Plan: Metastatic esophageal cancer, Herceptin chemo recently discontinued and reports she is scheduled to start a new chemo on Sunday. Acute hypoxic respiratory failure, on oxygen, improved. CHF exacerbation, diastolic dysfunction, EF 55 to 60% versus pneumonitis: Wait on consult and recommendations regarding this possibly steroid use, she remains on Lasix and spironolactone this time New posterior esophageal masses and mediastinal masses: Defer to oncology NSTEMI: Abnormal troponins, cardiology consult pending Lactic acidosis Asthma, COPD chronic, [facility] History of ovarian cancer status post resection and chemotherapy Hypothyroidism Hypertension Multiple other medical comorbidities. 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 Most likely she will need steroids. She will remain on the IV Lasix and spironolactone until cardiology sees her. She is on a heparin drip at this time. He has some generalized weakness that was noted as well, will add physical therapy to evaluate her. I will reevaluate her in the next 24 hours, repeat labs a.m.
[2025-05-02] MEDS ORDERED: Potassium Replacement Protocol 1 EACH MISC MISCELLANE PRN (14:54)
[2025-05-02 15:26] LABS: T4, Free (Free Thyroxine) 2.68 ng/dL (0.78-2.19)
[2025-05-02] MEDS: methylPREDNISolone SOD SUCCI 125 MG/2 ML VIAL IV SCH ×2 (15:55→21:54)
[2025-05-02] MEDS: POTASSIUM CHLORIDE ER 20 MEQ TAB.ER PO SCH (15:56)
--- NOTE | 2025-05-02 16:17 | P.PN ---
Subjective Progress Note Date: 05/02/25 Principal diagnosis: SOB, anorexia. Hx esophageal adenocarcinoma In f/u today pt cont to be SOB at rest, she is on 8L now, she is weak, denies fever, N,V but has no appetite. Objective - Vital Signs Vital signs: Vital Signs Temp 97.8 F 05/02/25 12:22 Pulse 87 05/02/25 12:22 Resp 20 05/02/25 12:22 BP 112/72 05/02/25 12:22 Pulse Ox 92 L 05/02/25 12:22 FiO2 40 05/01/25 19:27 Intake & Output 05/01/25 05/02/25 05/02/25 18:59 06:59 18:59 Intake Total 120 Output Total 500 1000 150 Balance -500 -1000 -30 Weight 67.585 kg 57.8 kg Intake: Oral 120 Output: Urine 500 1000 150 Other: Voiding Method External Catheter # Voids 1 # Bowel Movements 1 - Constitutional General appearance: Present: cooperative, mild distress, thin - EENT Eyes: Present: anicteric sclerae, EOMI ENT: Present: hearing grossly normal, thrush - Respiratory Respiratory: bilateral: diminished (tight) - Cardiovascular Rhythm: regular Heart sounds: normal: S1, S2 Abnormal Heart Sounds: Present: systolic murmur (soft, RSB, 3ICS). Absent: diastolic murmur, rub, S3 Gallop, S4 Gallop, click, other - Gastrointestinal General gastrointestinal: Present: normal bowel sounds, soft - Integumentary Integumentary: Present: normal - Neurologic Neurologic: Present: CNII-XII intact - Musculoskeletal Musculoskeletal: Present: generalized weakness - Psychiatric Psychiatric: Present: A&O x's 3, appropriate affect, intact judgment & insight - Labs CBC & Chem 7: 05/02/25 07:57 05/02/25 05:02 Labs: Abnormal Lab Results - Last 24 Hours (Table) 05/01/25 05/01/25 05/01/25 Range/Units 15:14 15:32 19:00 RBC (4.10-5.20) 10*6/uL Hct (37.2-46.3) % MCV (80.0-97.0) fL MCH (27.0-32.0) pg Plt Count (140-440) 10*3/uL Lymphocytes # (0.90-5.00) 10*3/uL APTT (22.0-30.0) sec Potassium (3.5-5.1) mmol/L BUN (7-17) mg/dL Plasma Lactic Acid Freedom 2.9 H* 3.2 H* (0.7-2.0) mmol/L AST (14-36) U/L ALT (4-34) U/L Alkaline Phosphatase (38-126) U/L Troponin I 0.677 H* (0.000-0.034) ng/mL Total Protein (6.3-8.2) g/dL Albumin (3.5-5.0) g/dL Urine Appearance (Clear) Ur Leukocyte Esterase (Negative) Urine RBC (0-5) /hpf Urine WBC (0-5) /hpf Urine Bacteria (None) /hpf Hyaline Casts (0-2) /lpf Urine Mucus (None) /hpf 05/01/25 05/01/25 05/02/25 Range/Units 19:02 22:30 05:02 RBC 3.56 L (4.10-5.20) 10*6/uL Hct 36.7 L (37.2-46.3) % MCV 103.1 H (80.0-97.0) fL MCH 36.0 H (27.0-32.0) pg Plt Count 117 L (140-440) 10*3/uL Lymphocytes # 0.72 L (0.90-5.00) 10*3/uL APTT 54.4 H (22.0-30.0) sec Potassium (3.5-5.1) mmol/L BUN (7-17) mg/dL Plasma Lactic Acid Freedom 2.3 H* (0.7-2.0) mmol/L AST (14-36) U/L ALT (4-34) U/L Alkaline Phosphatase (38-126) U/L Troponin I (0.000-0.034) ng/mL Total Protein (6.3-8.2) g/dL Albumin (3.5-5.0) g/dL Urine Appearance (Clear) Ur Leukocyte Esterase (Negative) Urine RBC (0-5) /hpf Urine WBC (0-5) /hpf Urine Bacteria (None) /hpf Hyaline Casts (0-2) /lpf Urine Mucus (None) /hpf 05/02/25 05/02/25 05/02/25 Range/Units 05:02 07:57 07:57 RBC 3.66 L (4.10-5.20) 10*6/uL Hct (37.2-46.3) % MCV 105.7 H (80.0-97.0) fL MCH 36.6 H (27.0-32.0) pg Plt Count 117 L (140-440) 10*3/uL Lymphocytes # 0.86 L (0.90-5.00) 10*3/uL APTT 53.7 H (22.0-30.0) sec Potassium 3.1 L (3.5-5.1) mmol/L BUN 26 H (7-17) mg/dL Plasma Lactic Acid Freedom (0.7-2.0) mmol/L AST 125 H (14-36) U/L ALT 46 H (4-34) U/L Alkaline Phosphatase 203 H (38-126) U/L Troponin I (0.000-0.034) ng/mL Total Protein 5.9 L (6.3-8.2) g/dL Albumin 2.9 L (3.5-5.0) g/dL Urine Appearance (Clear) Ur Leukocyte Esterase (Negative) Urine RBC (0-5) /hpf Urine WBC (0-5) /hpf Urine Bacteria (None) /hpf Hyaline Casts (0-2) /lpf Urine Mucus (None) /hpf 05/02/25 Range/Units 12:41 RBC (4.10-5.20) 10*6/uL Hct (37.2-46.3) % MCV (80.0-97.0) fL MCH (27.0-32.0) pg Plt Count (140-440) 10*3/uL Lymphocytes # (0.90-5.00) 10*3/uL APTT (22.0-30.0) sec Potassium (3.5-5.1) mmol/L BUN (7-17) mg/dL Plasma Lactic Acid Freedom (0.7-2.0) mmol/L AST (14-36) U/L ALT (4-34) U/L Alkaline Phosphatase (38-126) U/L Troponin I (0.000-0.034) ng/mL Total Protein (6.3-8.2) g/dL Albumin (3.5-5.0) g/dL Urine Appearance Cloudy H (Clear) Ur Leukocyte Esterase Large H (Negative) Urine RBC 12 H (0-5) /hpf Urine WBC 45 H (0-5) /hpf Urine Bacteria Occasional H (None) /hpf Hyaline Casts 3 H (0-2) /lpf Urine Mucus Rare H (None) /hpf Assessment and Plan (1) Congestive heart failure Current Visit: Yes Status: Suspected Priority: Medium Code(s): I50.9 - HEART FAILURE, UNSPECIFIED SNOMED Code(s): 33694037 (2) Esophageal adenocarcinoma Current Visit: No Status: Chronic Priority: Medium Code(s): C15.9 - MALIGNANT NEOPLASM OF ESOPHAGUS, UNSPECIFIED SNOMED Code(s): 657279566 (3) Thrush Current Visit: Yes Status: Acute Priority: Medium Code(s): B37.0 - CANDIDAL STOMATITIS SNOMED Code(s): 40428417 Plan: Pneumonitis vs CHF -Dr. Glass and Dr. Aleman discussed case. Resp symptoms felt to be more consistent with penumonits based on imaging, no improvements in resp states post lasix-now on 8L. -Pt no longer has crackles on exam today -Pending Cardiology evaluation -Solumedrol started -Ativan for anxiety caused by steroids per pt Esophageal carcinoma -Diagnostic and therapeutic circumstances as described in consult. -Patient is to start her new regimen next week. This will be delayed as appropriate, till her acute condition resolves. Poor oral intake -IVF at 75cc/hr ordered at family request as pt is not eating or drinking much Oral thrush -Nystatin suspension ordered
[2025-05-02] MEDS: SODIUM CHLORIDE 0.9% 1,000 ML IV SCH (16:56)
[2025-05-02] MEDS: NYSTATIN 100,000 UNIT/ML SUSP 500,000 UNIT/5 ML CUP PO SCH (18:10)
[2025-05-02] MEDS: LORazepam 1 MG/0.5 ML VIAL IV PRN (18:20)
--- NOTE | 2025-05-02 18:51 | P.CRDCN ---
History of Present Illness Consult date: 05/02/25 History of present illness: HISTORY OF PRESENTING ILLNESS: 69-year-old with past medical history of esophageal cancer previously on chemotherapy. Thereafter she was on maintenance chemotherapy which was not working and she had a relapse for which she was started on this new chemotherapy called Enhertu. Thereafter it was stopped because of concerns of possible interstitial pneumonitis. This time she presented to the hospital because of increased worsening shortness of breath and found to be hypoxic with oxygen saturation in 71 since yesterday. Cardiology was consulted to evaluate for congestive heart failure because of elevated NT-proBNP and pulmonary infiltrates on chest x-ray. Vitals: 112/72, heart rate 87 Admission Labs: Hb 12.8, BUN 26, creatinine 0.8, lactate 2.3, mild elevated AST ALT, TSH 0.3, free T42.6, TSH is low and T4 is high, NT-proBNP 7000, elevated troponin with a downtrending pattern, 1.2, 0.8, 0.6 Admission EKG: EKG shows sinus rhythm, heart rate 85 bpm, T wave inversions in inferior leads Imaging: CT chest shows diffuse groundglass opacities suggestive of interstitial pneumonia Prior cardiac testing: Echo from this admission shows EF of 60%, no obvious valvular dysfunction or regional wall motion abnormality REVIEW OF SYSTEMS: 14 point review of system is negative except what is mentioned above in HPI. PHYSICAL EXAMINATION: Neck: Brisk carotid upstroke, no jugular venous distention. Lungs: Crackles and rhonchi audible, diminished air entry in bilateral lung pearl Heart: Regular rate and rhythm, S1-S2, , no murmur or rub. Abdomen: Soft nontender, positive bowel sounds. Extremities: No edema, intact distal pulses. Neuro: Alert, oritented, no focal deficits. Detailed neuro exam was not performed. ASSESSMENT: # Elevated troponin, likely type II NSTEMI from hypoxemia # Acute hypoxic respiratory failure likely due to drug-induced interstitial pneumonitis. # Esophageal cancer PLAN: Patient is continued IV Lasix 40 twice daily and Aldactone along with this she is also getting IV fluids for poor oral intake from esophageal cancer. I feel that low-dose Lasix will help her interstitial pneumonitis and prevent it to progress into ARDS. Recommend to be cautious with IV fluids. She does not appear volume overloaded at this time however she started to develop mildly elevated JVP. Will continue to monitor Ethan Etienne, MD, FACC, RPVI Thank you for allowing [facility] to participate in this patient's care. Feel free to reach out in case of any followup questions. Past Medical History Past Medical History: Cancer, COPD, GERD/Reflux, Hyperlipidemia, Hypertension, Osteoarthritis (OA), Thyroid Disorder Additional Past Medical History / Comment(s): OVARIAN CANCER (DX 02/2015) LAST CHEMO March 2025, IBS,CHRONIC BACK PAIN, HX OF BRONCHITIS. cancer reoccurence - mass in esophagus and liver History of Any Multi-Drug Resistant Organisms: None Reported Past Surgical History: Cholecystectomy, Hysterectomy, Orthopedic Surgery, Tubal Ligation Additional Past Surgical History / Comment(s): PORT-A-CATH RT CHEST(04/2015),and removal of port, COLONOSCOPY,. EXCISION LIPOMA FROM ABD. WALL. Total Hysterectomy. LT FEMUR x2. knee replacement 03/2021 Past Anesthesia/Blood Transfusion Reactions: No Reported Reaction Additional Past Anesthesia/Blood Transfusion Reaction / Comment(s): NO COMPLICATIONS WITH BLOOD TRANSFUSION. Past Psychological History: Anxiety Smoking Status: Former smoker Past Alcohol Use History: None Reported Additional Past Alcohol Use History / Comment(s): QUIT SMOKING 2004,STARTED 1984. SMOKED LESS THAN 1 PPD. DRINKS 3 PER WEEK, NO ALCOHOL IN THE LAST COUPLE WEEKS. Past Drug Use History: None Reported - Past Family History Mother Family Medical History: Cancer Additional Family Medical History / Comment(s): SQUAMOUS CELL CA-NECK. Father History Unknown: Yes Medications and Allergies Home Medications Medication Instructions Recorded Confirmed Type Levothyroxine Sodium [Synthroid] 88 mcg PO DAILY@0600 06/30/15 05/01/25 History Omeprazole 20 mg PO DAILY 06/30/15 05/01/25 History ALPRAZolam [Xanax] 0.25 mg PO BID PRN 07/31/17 05/01/25 History Pravastatin Sodium 80 mg PO HS 08/03/20 05/01/25 History Furosemide [Lasix] 20 mg PO BID@0700,1800 12/06/21 05/01/25 History Mirtazapine [Remeron] 15 mg PO HS 06/26/24 05/01/25 History Fluticasone Propion/Salmeterol 1 puff INHALATION RT-BID 05/01/25 05/01/25 History [Advair 250-50 Diskus] Losartan [Cozaar] 25 mg PO DAILY 05/01/25 05/01/25 History Magnesium Oxide [Mag-Ox] 400 mg PO DAILY 05/01/25 05/01/25 History Potassium Chloride ER [K-Dur 20] 20 meq PO DAILY 05/01/25 05/01/25 History Allergies Allergy/AdvReac Type Severity Reaction Status Date / Time amoxicillin Allergy Rash/Hives Verified 05/01/25 13:01 Physical Exam Vitals: Vital Signs Temp Pulse Pulse Resp BP BP Pulse Ox 05/02/25 16:16 90 05/02/25 16:06 88 05/02/25 16:02 99.1 F 82 20 107/69 92 L 05/02/25 14:57 20 05/02/25 12:22 97.8 F 87 20 112/72 92 L 05/02/25 08:49 93 L 05/02/25 08:47 85 05/02/25 08:37 85 05/02/25 08:17 98 F 79 20 110/69 93 L 05/02/25 08:00 20 05/02/25 04:55 84 20 101/62 94 L 05/01/25 23:50 85 20 103/69 91 L 05/01/25 21:19 98.0 F 88 22 104/62 93 L 05/01/25 19:51 92 17 105/59 93 L 05/01/25 19:40 88 05/01/25 19:27 86 86 L 05/01/25 18:08 87 18 101/65 93 L FiO2 05/02/25 16:16 05/02/25 16:06 05/02/25 16:02 05/02/25 14:57 05/02/25 12:22 05/02/25 08:49 05/02/25 08:47 05/02/25 08:37 05/02/25 08:17 05/02/25 08:00 05/02/25 04:55 05/01/25 23:50 05/01/25 21:19 05/01/25 19:51 05/01/25 19:40 05/01/25 19:27 40 05/01/25 18:08 Intake and Output 05/02/25 05/02/25 05/02/25 06:59 14:59 22:59 Intake Total 120 0 Output Total 1000 150 Balance -1000 -30 0 Intake: Oral 120 0 Output: Urine 1000 150 Other: Voiding Method External Catheter # Voids 1 # Bowel Movements 1 Weight 57.8 kg 57.8 kg Results 05/02/25 07:57 05/02/25 05:02 Cardiac Enzymes 05/02/25 Range/Units 05:02 AST 125 H (14-36) U/L Coagulation 05/01/25 05/02/25 05/02/25 Range/Units 19:02 05:02 07:57 PT 11.8 (10.0-12.5) sec APTT 54.4 H 53.7 H (22.0-30.0) sec CBC 05/02/25 05/02/25 Range/Units 05:02 07:57 WBC 7.80 8.30 (4.50-10.00) 10*3/uL RBC 3.56 L 3.66 L (4.10-5.20) 10*6/uL Hgb 12.8 13.4 (12.0-15.0) g/dL Hct 36.7 L 38.7 (37.2-46.3) % Plt Count 117 L 117 L (140-440) 10*3/uL Comprehensive Metabolic Panel 05/02/25 Range/Units 05:02 Sodium 137 (137-145) mmol/L Potassium 3.1 L (3.5-5.1) mmol/L Chloride 103 (98-107) mmol/L Carbon Dioxide 22 (22-30) mmol/L BUN 26 H (7-17) mg/dL Creatinine 0.81 (0.52-1.04) mg/dL Glucose 95 (74-99) mg/dL Calcium 9.3 (8.4-10.2) mg/dL AST 125 H (14-36) U/L ALT 46 H (4-34) U/L Alkaline Phosphatase 203 H (38-126) U/L Total Protein 5.9 L (6.3-8.2) g/dL Albumin 2.9 L (3.5-5.0) g/dL Current Medications Generic Name Dose Route Start Last Admin Trade Name Freq PRN Reason Stop Dose Admin Acetaminophen 650 mg 05/02/25 11:33 Acetaminophen Tab 325 Mg Tab PO Q6HR PRN Fever and/ or Pain Albuterol/Ipratropium 3 ml 05/01/25 16:00 05/02/25 16:04 Ipratropium-Albuterol 3 Ml Neb INHALATION 3 ml RT-QID JOHN Administration Albuterol/Ipratropium 3 ml 05/01/25 14:07 Ipratropium-Albuterol 3 Ml Neb INHALATION RT-Q2H PRN Shortness Of Breath Or Wheezing Aspirin 325 mg 05/02/25 09:00 05/02/25 09:25 Aspirin 325 Mg Tab PO 325 mg DAILY JOHN Administration Budesonide/Formoterol Fumarate 2 puff 05/01/25 20:00 05/02/25 08:36 Symbicort 80-4.5 Mcg Inhaler INHALATION 2 puff RT-BID JOHN Administration Diphenhydramine HCl 50 mg 05/01/25 22:00 05/01/25 23:59 Diphenhydramine 25 Mg Cap PO 50 mg HS JOHN Administration Furosemide 40 mg 05/01/25 21:00 05/02/25 09:24 Furosemide 10 Mg/Ml 4 Ml Vial IV 40 mg Q12HR JOHN Administration Sodium Chloride 1,000 mls @ 75 mls/hr 05/02/25 16:15 05/02/25 16:56 Saline 0.9% IV 75 mls/hr .[id number] JOHN Administration Levothyroxine Sodium 88 mcg 05/02/25 06:00 05/02/25 05:52 Levothyroxine 88 Mcg Tab PO 88 mcg DAILY@0600 JOHN Administration Lorazepam 1 mg 05/02/25 16:08 Lorazepam 1 Mg/0.5 Ml Vial IV Q4HR PRN Anxiety Magnesium Oxide 400 mg 05/02/25 09:00 05/02/25 09:25 Magnesium Oxide 400 Mg Tab PO 400 mg DAILY JOHN Administration Methylprednisolone Sodium Succinate 60 mg 05/02/25 13:45 05/02/25 15:55 Methylprednisolone Sod Succi 125 Mg/2 Ml Vial IV 60 mg Q6HR JOHN Administration Mirtazapine 15 mg 05/01/25 21:00 05/01/25 22:01 Mirtazapine 15 Mg Tab PO 15 mg HS JOHN Administration Miscellaneous Information 1 each 05/02/25 14:54 Potassium Replacement Protocol 1 Each Misc MISCELLANE DAILY PRN Per Protocol Protocol Nystatin 500,000 unit 06/07/25 18:00 Nystatin 100,000 Unit/Ml Susp 500,000 Unit/5 Ml Cup PO QID JOHN Protocol Pantoprazole Sodium 40 mg 05/01/25 16:45 05/02/25 09:25 Pantoprazole 40 Mg Tablet PO 40 mg DAILY JOHN Administration Pravastatin Sodium 80 mg 05/01/25 21:00 05/01/25 22:01 Pravastatin Sodium 80 Mg Tab PO 80 mg HS JOHN Administration Spironolactone 25 mg 05/01/25 16:45 05/02/25 09:25 Spironolactone 25 Mg Tab PO 25 mg DAILY JOHN Administration Intake and Output 05/02/25 05/02/25 05/02/25 06:59 14:59 22:59 Intake Total 120 0 Output Total 1000 150 Balance -1000 -30 0 Intake: Oral 120 0 Output: Urine 1000 150 Other: Voiding Method External Catheter # Voids 1 # Bowel Movements 1 Weight 57.8 kg 57.8 kg Patient Weight 05/03/25 06:59 Weight 57.8 kg 05/02/25 07:57 05/02/25 05:02
[2025-05-03] MEDS: ONDANSETRON 4 MG/2 ML VIAL IVP PRN (09:04)
--- NOTE | 2025-05-03 09:06 | P.PN ---
Subjective May 02, 2025: The patient is reevaluated for acute hypoxic respiratory failure. Initially thought to be due to CHF possibly from her medication for chemotherapy for her metastatic esophageal carcinoma. She is currently on spironolactone and IV Lasix. Has abnormal troponins consistent with NSTEMI. Vital signs show she is afebrile heart rate is normal pulse oximetry is 92% on 8 L of O2 via nasal cannula. Laboratory studies show no white count she is macrocytic. Plasma lactic acid have been elevated. Her beta natruretic peptide was 7310. Urinalysis showed large leukocytes and was cloudy with occasional bacteria and cyst. COVID flu and RSV are negative. Cardiogram shows LV EF 60% with no motion abnormalities. Consults from oncology and pulmonology were reviewed today. 2024, the patient is reevaluated today she is breathing better but now complaining of significant nausea and thoracic pain upon my entering room the room. She did get started on Solu-Medrol overnight. Cardiology had seen her and and felt this was much more likely pneumonitis as did pulmonology based on her current findings test results. Spironolactone's been discontinued and Lasix has been dropped to p.o. at this time. Family are at bedside. Vital signs are stable pulse oximetry is still low 93% on 8 L of O2 via nasal cannula. Laboratory studies pending for this morning. Cardiology, pulmonology, and oncology notes reviewed As stated she has been having an hour to significant nausea. She indicates she takes Zofran with some relief. She also indicates this started with thoracic spine pain in between her shoulder blades. Stabbing in quality constant. Objective - Vital Signs Vital signs: Vital Signs Temp 97.7 F 05/03/25 07:29 Pulse 95 05/03/25 08:39 Resp 20 05/03/25 07:29 BP 123/73 05/03/25 07:29 Pulse Ox 93 L 05/03/25 08:31 FiO2 40 05/01/25 19:27 Intake & Output 05/02/25 05/03/25 05/03/25 18:59 06:59 18:59 Intake Total 120 118 Output Total 750 600 Balance -630 -600 118 Weight 57.8 kg 58 kg Intake: Oral 120 118 Output: Urine 750 600 Other: Voiding Method External Catheter # Bowel Movements 1 - Exam General: The patient is awake and alert, She has nasal cannula oxygen at 8 L/min, she is restless and in pain occasionally dry heaving Neck: The neck is supple, there is no thyromegaly, lymphadenopathy, tenderness or JVD. Cardiovascular: S1S2 is normal, There is a regular rate and rhythm. No murmur, rub or gallop is appreciated. Respiratory: Lungs are diminished, no active wheezes rales or crackles Gastrointestinal: Soft, non-distended, non-tender abdomen without masses or organomegaly noted. There is no rebound or guarding present. Bowel sounds are unremarkable. Musculoskeletal: Normal ROM, , There is no pedal edema. There is no calf tenderness or swelling. No cords were appreciated. Neurological: CN II-XII intact, there are no obvious motor or sensory deficits. Coordination appears grossly intact. Speech is normal. There is significant pain to the ankles and feet with light touch Skin: Skin is warm and dry and no rashes or lesions are noted. - Labs CBC & Chem 7: 05/02/25 07:57 05/02/25 05:02 Labs: Abnormal Lab Results - Last 24 Hours (Table) 05/02/25 05/02/25 05/02/25 Range/Units 05:02 07:57 07:57 RBC 3.66 L (4.10-5.20) 10*6/uL MCV 105.7 H (80.0-97.0) fL MCH 36.6 H (27.0-32.0) pg Plt Count 117 L (140-440) 10*3/uL Lymphocytes # 0.86 L (0.90-5.00) 10*3/uL APTT 53.7 H (22.0-30.0) sec TSH 0.387 L (0.465-4.680) mIU/L Free T4 2.68 H (0.78-2.19) ng/dL Urine Appearance (Clear) Ur Leukocyte Esterase (Negative) Urine RBC (0-5) /hpf Urine WBC (0-5) /hpf Urine Bacteria (None) /hpf Hyaline Casts (0-2) /lpf Urine Mucus (None) /hpf 05/02/25 Range/Units 12:41 RBC (4.10-5.20) 10*6/uL MCV (80.0-97.0) fL MCH (27.0-32.0) pg Plt Count (140-440) 10*3/uL Lymphocytes # (0.90-5.00) 10*3/uL APTT (22.0-30.0) sec TSH (0.465-4.680) mIU/L Free T4 (0.78-2.19) ng/dL Urine Appearance Cloudy H (Clear) Ur Leukocyte Esterase Large H (Negative) Urine RBC 12 H (0-5) /hpf Urine WBC 45 H (0-5) /hpf Urine Bacteria Occasional H (None) /hpf Hyaline Casts 3 H (0-2) /lpf Urine Mucus Rare H (None) /hpf Assessment and Plan Plan: Acute nausea: Reorder Zofran. Severe thoracic spine pain, will obtain a x-ray of the thoracic spine and a chest x-ray possibly proceed with CT chest, this may be a reaction to receiving the Solu-Medrol earlier. Metastatic esophageal cancer, Herceptin chemo recently discontinued and reports she is scheduled to start a new chemo on Sunday. Acute hypoxic respiratory failure, on oxygen, stable at this time. CHF,diastolic dysfunction, EF 55 to 60%: Less likely at this time. Pneumonitis: Most likely chemotherapy-induced, she has been started on Solu- Medrol New posterior esophageal masses and mediastinal masses: Defer to oncology NSTEMI: Abnormal troponins, cardiology is following Lactic acidosis: Resolved Asthma, COPD chronic, remain on Symbicort and updrafts History of ovarian cancer status post resection and chemotherapy Hypothyroidism Hypertension Multiple other medical comorbidities. Plan Zofran for nausea, Dilaudid or [place] for pain depending on severity, chest x-ray and thoracic spine x-ray to evaluate for occult compression fracture or other abnormalities. May proceed to CT chest and thoracic spine depending on the outcomes waiting on laboratory studies, repeated labs in a.m., should be reevaluated by family medicine in the next 24 hours
[2025-05-03] MEDS: ASPIRIN 81 MG PO SCH (09:08)
[2025-05-03] MEDS: HYDROmorphone 0.5 MG/0.5 ML SYRINGE IVP PRN (09:10)
[2025-05-03 09:17] LABS: HCT 38.5 % (37.2-46.3); Lymphocytes # (A) 0.28 10*3/uL (0.90-5.00); Lymphocytes % (A) 8.5 %; MCH 35.6 pg (27.0-32.0); MCHC 33.8 g/dL (32.0-37.0); MCV 105.5 fL (80.0-97.0); Mean Platelet Volume 9.5 fL (9.5-12.2); Monocytes # (A) 0.07 10*3/uL (0.20-1.00); Monocytes % (A) 2.1 %; Neutrophils # (A) 2.93 10*3/uL (1.80-7.70); Neutrophils % (A) 89.1 %; Platelet Count 121 10*3/uL (140-440); RBC 3.65 10*6/uL (4.10-5.20); WBC 3.29 10*3/uL (4.50-10.00)
[2025-05-03 09:27] LABS: ALT 53 U/L (4-34); AST 112 U/L (14-36); African American GFR (CKD) 82 (>60 ml/min/1.73 sqM); Albumin 3.2 g/dL (3.5-5.0); Alkaline Phosphatase 192 U/L (38-126); Anion Gap 12 mmol/L; Blood Urea Nitrogen 28 mg/dL (7-17); Calcium 9.4 mg/dL (8.4-10.2); Carbon Dioxide 22 mmol/L (22-30); Chloride 105 mmol/L (98-107); Glucose 244 mg/dL (74-99); Non-African American GFR(CKD) 71 (>60 ml/min/1.73 sqM); Potassium 3.7 mmol/L (3.5-5.1); Sodium 139 mmol/L (137-145); Total Bilirubin 0.8 mg/dL (0.2-1.3); Total Protein 6.3 g/dL (6.3-8.2)
--- NOTE | 2025-05-03 09:55 | XR ---
EXAMINATION TYPE: XR chest 1V portable DATE OF EXAM: 05/03/2025 9:48 AM COMPARISON: 05/01/2025 CLINICAL INDICATION: Female, 69 years old with history of SOB, TECHNIQUE: XR chest 1V portable view(s) obtained. FINDINGS: The heart size is normal. The pulmonary vasculature is prominent. Diffuse increased lung markings are present. Correlate for pulmonary edema. IMPRESSION: 1. Clinical correlation for volume overload or congestive heart failure. Follow-up recommended [facility], , 05/03/2025 9:52 AM
--- NOTE | 2025-05-03 10:00 | XR ---
EXAMINATION TYPE: XR thoracic spine complete DATE OF EXAM: 05/03/2025 9:48 AM COMPARISON: Chest x-ray 224 CLINICAL INDICATION: Female, 69 years old with history of pain, pain TECHNIQUE: 3 view(s) obtained. FINDINGS: There are 12 thoracic type vertebral bodies. Pedicles are intact. Disc heights are preserved. There i s a wedge deformity in the region of T11 and T8. These are old. Kyphosis is present. IMPRESSION: 1. No acute osseous abnormality thoracic spine. 2. Old compression deformities without posterior wall displacement mid and lower thoracic spine [facility], , 05/03/2025 9:58 AM
[2025-05-03] MEDS: FUROSEMIDE 40 MG TAB PO SCH (10:25)
--- NOTE | 2025-05-03 11:50 | P.PN ---
Subjective Progress Note Date: 05/03/25 HISTORY OF PRESENTING ILLNESS: 69-year-old with past medical history of esophageal cancer previously on ch emotherapy. Thereafter she was on maintenance chemotherapy which was not working and she had a relapse for which she was started on this new chemotherapy called Enhertu. Thereafter it was stopped because of concerns of possible interstitial pneumonitis. This time she presented to the hospital because of increased worsening shortness of breath and found to be hypoxic with oxygen saturation in 71 since yesterday. Cardiology was consulted to evaluate for congestive heart failure because of rosalina vated NT-proBNP and pulmonary infiltrates on chest x-ray. Vitals: 112/72, heart rate 87 Admission Labs: Hb 12.8, BUN 26, creatinine 0.8, lactate 2.3, mild elevated AST ALT, TSH 0.3, free T42.6, TSH is low and T4 is high, NT-proBNP 7000, elevated troponin with a downtrending pattern, 1.2, 0.8, 0.6 Admission EKG: EKG shows sinus rhythm, heart rate 85 bpm, T wave inversions in inferior leads Imaging: CT chest shows diffuse groundglass opacities suggestive of interstitial pneumonia Prior cardiac testing: Echo from this admission shows EF of 60%, no obvious valvular dysfunction or regional wall motion abnormality Progress note 05/03/2025 Seen and examined at bedside this a.m. Patient denies any active chest pain chest pressure. Does report shortness of breath still on 8 L oxygen. Chest x- ray still shows diffuse pulmonary edema PHYSICAL EXAMINATION: Neck: Brisk carotid upstroke, no jugular venous distention. Lungs: Crackles audible, diminished air entry in bilateral lung pearl Heart: Regular rate and rhythm, S1-S2, , no murmur or rub. Abdomen: Soft nontender, positive bowel sounds. Extremities: No edema, intact distal pulses. Neuro: Alert, oritented, no focal deficits. Detailed neuro exam was not performed. 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 Lasix which she takes at home Continue her home statin Primary management as per primary team and hematology oncology At this time cardiology team will sign off. Please reconsult us in case of any question. Objective - Vital Signs Vital signs: Vital Signs Temp 97.9 F 05/03/25 11:44 Pulse 109 H 05/03/25 11:44 Resp 18 05/03/25 11:44 BP 108/60 05/03/25 11:44 Pulse Ox 94 L 05/03/25 11:44 FiO2 40 05/01/25 19:27 Intake & Output 05/02/25 05/03/25 05/03/25 18:59 06:59 18:59 Intake Total 120 118 Output Total 750 600 Balance -630 -600 118 Weight 57.8 kg 58 kg Intake: Oral 120 118 Output: Urine 750 600 Other: Voiding Method External Catheter # Voids 1 # Bowel Movements 1 1 - Labs CBC & Chem 7: 05/03/25 08:20 05/03/25 08:20 Labs: Abnormal Lab Results - Last 24 Hours (Table) 05/02/25 05/02/25 05/03/25 Range/Units 05:02 12:41 08:20 WBC 3.29 L (4.50-10.00) 10*3/uL RBC 3.65 L (4.10-5.20) 10*6/uL MCV 105.5 H (80.0-97.0) fL MCH 35.6 H (27.0-32.0) pg Plt Count 121 L (140-440) 10*3/uL Lymphocytes # 0.28 L (0.90-5.00) 10*3/uL Monocytes # 0.07 L (0.20-1.00) 10*3/uL Eosinophils # 0.00 L (0.04-0.35) 10*3/uL BUN (7-17) mg/dL Glucose (74-99) mg/dL AST (14-36) U/L ALT (4-34) U/L Alkaline Phosphatase (38-126) U/L Albumin (3.5-5.0) g/dL TSH 0.387 L (0.465-4.680) mIU/L Free T4 2.68 H (0.78-2.19) ng/dL Urine Appearance Cloudy H (Clear) Ur Leukocyte Esterase Large H (Negative) Urine RBC 12 H (0-5) /hpf Urine WBC 45 H (0-5) /hpf Urine Bacteria Occasional H (None) /hpf Hyaline Casts 3 H (0-2) /lpf Urine Mucus Rare H (None) /hpf 05/03/25 Range/Units 08:20 WBC (4.50-10.00) 10*3/uL RBC (4.10-5.20) 10*6/uL MCV (80.0-97.0) fL MCH (27.0-32.0) pg Plt Count (140-440) 10*3/uL Lymphocytes # (0.90-5.00) 10*3/uL Monocytes # (0.20-1.00) 10*3/uL Eosinophils # (0.04-0.35) 10*3/uL BUN 28 H (7-17) mg/dL Glucose 244 H (74-99) mg/dL AST 112 H (14-36) U/L ALT 53 H (4-34) U/L Alkaline Phosphatase 192 H (38-126) U/L Albumin 3.2 L (3.5-5.0) g/dL TSH (0.465-4.680) mIU/L Free T4 (0.78-2.19) ng/dL Urine Appearance (Clear) Ur Leukocyte Esterase (Negative) Urine RBC (0-5) /hpf Urine WBC (0-5) /hpf Urine Bacteria (None) /hpf Hyaline Casts (0-2) /lpf Urine Mucus (None) /hpf
--- NOTE | 2025-05-03 13:54 | P.PN ---
Subjective Progress Note Date: 05/03/25 Principal diagnosis: SOB, anorexia. Hx esophageal adenocarcinoma In f/u today pt reports that she believes her breathing is better, she is able to recline a little further in bed, she did eat whole bowl of soup last night, had a little bit of nausea this morning but, has ate since. She is expectorating Objective - Vital Signs Vital signs: Vital Signs Temp 97.9 F 05/03/25 11:44 Pulse 109 H 05/03/25 11:44 Resp 18 05/03/25 11:44 BP 108/60 05/03/25 11:44 Pulse Ox 94 L 05/03/25 11:44 FiO2 40 05/01/25 19:27 Intake & Output 05/02/25 05/03/25 05/03/25 18:59 06:59 18:59 Intake Total 120 118 Output Total 750 600 900 Balance -779 -600 -592 Weight 57.8 kg 58 kg Intake: Oral 120 118 Output: Urine 750 600 900 Other: Voiding Method External Catheter # Voids 1 # Bowel Movements 1 1 - Constitutional General appearance: Present: cooperative, no acute distress, thin - EENT Eyes: Present: anicteric sclerae, EOMI ENT: Present: hearing grossly normal - Respiratory Respiratory: bilateral: diminished - Cardiovascular Rhythm: regular - Peripheral edema leg Peripheral Edema: bilateral: None - Neurologic Neurologic: Present: CNII-XII intact - Musculoskeletal Musculoskeletal: Present: generalized weakness - Psychiatric Psychiatric: Present: A&O x's 3, appropriate affect, intact judgment & insight - Labs CBC & Chem 7: 05/03/25 08:20 05/03/25 08:20 Labs: Abnormal Lab Results - Last 24 Hours (Table) 05/02/25 05/03/25 05/03/25 Range/Units 05:02 08:20 08:20 WBC 3.29 L (4.50-10.00) 10*3/uL RBC 3.65 L (4.10-5.20) 10*6/uL MCV 105.5 H (80.0-97.0) fL MCH 35.6 H (27.0-32.0) pg Plt Count 121 L (140-440) 10*3/uL Lymphocytes # 0.28 L (0.90-5.00) 10*3/uL Monocytes # 0.07 L (0.20-1.00) 10*3/uL Eosinophils # 0.00 L (0.04-0.35) 10*3/uL BUN 28 H (7-17) mg/dL Glucose 244 H (74-99) mg/dL AST 112 H (14-36) U/L ALT 53 H (4-34) U/L Alkaline Phosphatase 192 H (38-126) U/L Albumin 3.2 L (3.5-5.0) g/dL TSH 0.387 L (0.465-4.680) mIU/L Free T4 2.68 H (0.78-2.19) ng/dL - Imaging and Cardiology Chest x-ray: report reviewed Assessment and Plan (1) Congestive heart failure Current Visit: Yes Status: Suspected Priority: Medium Code(s): I50.9 - HEART FAILURE, UNSPECIFIED SNOMED Code(s): 58805806 (2) Esophageal adenocarcinoma Current Visit: No Status: Chronic Priority: Medium Code(s): C15.9 - MALIGNANT NEOPLASM OF ESOPHAGUS, UNSPECIFIED SNOMED Code(s): 005090449 (3) Thrush Current Visit: Yes Status: Acute Priority: Medium Code(s): B37.0 - CANDIDAL STOMATITIS SNOMED Code(s): 94690377 Plan: Pneumonitis vs CHF -Dr. Glass and Dr. Aleman discussed case yesterday. Resp symptoms felt to be more consistent with penumonits based on imaging, no improvements in resp states post lasix. Solumedrol started yesterday. Pt having some improvement in her resp symptoms today -Ativan for anxiety caused by steroids per pt -Cardiology evaluated and has signed off Esophageal carcinoma -Diagnostic and therapeutic circumstances as described in consult. -Patient is to start her new regimen next week. This will be delayed as appropriate, till her acute condition resolves. Poor oral intake -IVF at 75cc/hr ordered at family request as pt is not eating or drinking much Oral thrush -Nystatin suspension ordered
--- NOTE | 2025-05-03 14:06 | P.PN ---
Subjective Progress Note Date: 05/03/25 On 05/02/2025, the patient is being seen in consult regarding acute hypoxic respiratory failure and development of diffuse bilateral pulmonary infiltrates. 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 The patient was started on palliative chemotherapy with FOLFOX and Herceptin completing 9 cycles. Due to intolerance, her regimen was changed to Herceptin and 5FU infusion only. The patient was subsequently changed to Enhertu on progression. She was on the same till about 03/20, at which time she developed progressive shortness of breath. She had CT scans of the chest done in the [facility] system, most recently in 03/20, that were concerning for pneumonitis, showing bilateral infiltrative changes and groundglass opacities, more prominent in the lung apices. As this is a known side effect of her regimen, that was discontinued, and the patient was placed on steroids. She completed her steroid taper in late 04/19, with improvement in her respiratory complaintsThe patient's subsequent imaging had shown evidence of progression, and the plan was to change her to Taxol and Cyramza, with cycle 1 scheduled to be given next week. The patient came into the emergency department having worsening shortness of breath. She is currently on oxygen and 8 L/min nasal cannula. The blood work showed a WBC count of 7.8 with hemoglobin 12.8 and platelet count 117. BUN is 26 pg 0.8. Lactic acid level was at 2.8 at 1.5. Sodium is 137 and potassium is at 3.1. LFTs are mildly elevated and the patient's proBNP level was 7310. Troponins were 1.2 and 0.80.6 respectively x 3. No history of any cardiac disease. The patient had an echocardiogram done on 05/01/2025 and the patient was found to have a normal left-ventricular ejection fraction with hyperdynamic LV without any significant valvular abnormalities. CT of the chest was also done and the patient was found to have no evidence of any filling defects to indicate pulmonary embolism. There is also mediastinal lymphadenopathy largest in the pretracheal space and at the level of ashlyn. There is also thickening of the retrocrural region extending posterior to the aorta and an area measuring 3.2 x 0.8 cm in size and soft tissue density anterior to the aorta and posterior to the esophagus measuring 3.2 cm in size, consistent with metastatic disease. However, there is diffuse patchy groundglass pulm infiltrates throughout the lung pearl bilaterally and some background COPD. The patient is a former smoker. The patient is started on IV heparin. The patient is also on IV Lasix. She is producing good urine output while being on Lasix 40 mg every 12 hours. Nevertheless, oxygenation remains unchanged. On 05/03/2025, the patient is being seen for a follow-up. The patient is feeling slightly better compared to yesterday. The patient was started on IV Solu- Medrol. Echocardiogram was normal. Has not responded to diuresis and the patient has been switched to oral Lasix 40 mg p.o. daily. Approximately 3.2 with a hemoglobin of 13 and a platelet count of 121. Normal renal function. Normal electrolytes. No other new complaints. She was complaining of back pain and x-ray of the thoracic spine showed wedge fracture of T8 and T11 and those are essentially chronic. She remains on oxygen and she is still on 8 L of O2 nasal cannula. Repeat chest x-ray shows no significant interval change with diffuse bilateral pulmonary filtrates. Objective - Vital Signs Vital signs: Vital Signs Temp 97.7 F 05/03/25 07:29 Pulse 95 05/03/25 08:39 Resp 20 05/03/25 07:29 BP 123/73 05/03/25 07:29 Pulse Ox 93 L 05/03/25 08:31 FiO2 40 05/01/25 19:27 Intake & Output 05/02/25 05/03/25 05/03/25 18:59 06:59 18:59 Intake Total 120 118 Output Total 750 600 Balance -630 -600 118 Weight 57.8 kg 58 kg Intake: Oral 120 118 Output: Urine 750 600 Other: Voiding Method External Catheter # Bowel Movements 1 - Exam The patient appeared well nourished and normally developed. Vital signs as documented. The patient is anxious. The patient has a body mass index of 21.9. The patient is currently on 8 L of O2 nasal cannula. Head exam is unremarkable. No scleral icterus or corneal arcus noted. Neck is without jugular venous distension, thyromegaly, or carotid bruits. Carotid upstrokes are brisk bilaterally. Lungs are clear to auscultation and percussion. Crackles are somewhat coarse in the midline lower lung pearl bilaterally. Cardiac exam reveals the PMI to be normally sized and situated. Rhythm is regular. First and second heart sounds normal. No murmurs, rubs or gallops. Abdominal exam reveals normal bowel sounds, no masses, no organomegaly and no aortic enlargement. Extremities are nonedematous and both femoral and pedal pulses are normal. Examination of the skin revealed no evidence of significant rashes, suspicious appearing nevi or other concerning lesions. Neurologically, the patient is awake and alert and the patient does not have any focal neurological deficit. Cranial nerves are essentially intact. - Labs CBC & Chem 7: 05/03/25 08:20 05/03/25 08:20 Labs: Abnormal Lab Results - Last 24 Hours (Table) 05/02/25 05/02/25 05/03/25 Range/Units 05:02 12:41 08:20 WBC 3.29 L (4.50-10.00) 10*3/uL RBC 3.65 L (4.10-5.20) 10*6/uL MCV 105.5 H (80.0-97.0) fL MCH 35.6 H (27.0-32.0) pg Plt Count 121 L (140-440) 10*3/uL Lymphocytes # 0.28 L (0.90-5.00) 10*3/uL Monocytes # 0.07 L (0.20-1.00) 10*3/uL Eosinophils # 0.00 L (0.04-0.35) 10*3/uL BUN (7-17) mg/dL Glucose (74-99) mg/dL AST (14-36) U/L ALT (4-34) U/L Alkaline Phosphatase (38-126) U/L Albumin (3.5-5.0) g/dL TSH 0.387 L (0.465-4.680) mIU/L Free T4 2.68 H (0.78-2.19) ng/dL Urine Appearance Cloudy H (Clear) Ur Leukocyte Esterase Large H (Negative) Urine RBC 12 H (0-5) /hpf Urine WBC 45 H (0-5) /hpf Urine Bacteria Occasional H (None) /hpf Hyaline Casts 3 H (0-2) /lpf Urine Mucus Rare H (None) /hpf 05/03/25 Range/Units 08:20 WBC (4.50-10.00) 10*3/uL RBC (4.10-5.20) 10*6/uL MCV (80.0-97.0) fL MCH (27.0-32.0) pg Plt Count (140-440) 10*3/uL Lymphocytes # (0.90-5.00) 10*3/uL Monocytes # (0.20-1.00) 10*3/uL Eosinophils # (0.04-0.35) 10*3/uL BUN 28 H (7-17) mg/dL Glucose 244 H (74-99) mg/dL AST 112 H (14-36) U/L ALT 53 H (4-34) U/L Alkaline Phosphatase 192 H (38-126) U/L Albumin 3.2 L (3.5-5.0) g/dL TSH (0.465-4.680) mIU/L Free T4 (0.78-2.19) ng/dL Urine Appearance (Clear) Ur Leukocyte Esterase (Negative) Urine RBC (0-5) /hpf Urine WBC (0-5) /hpf Urine Bacteria (None) /hpf Hyaline Casts (0-2) /lpf Urine Mucus (None) /hpf Assessment and Plan Plan: Acute hypoxic respiratory failure, currently on 8 L of oxygen by nasal cannula. The patient developed diffuse bilateral interstitial and groundglass pulm infiltrates with areas of consolidation very much consistent with drug-induced pneumonitis. Suspect Enhertu related pneumonitis. ENHERTU (fam-trastuzumab deruxtecan-nxki) can cause interstitial lung disease (ILD) and pneumonitis, which can be serious, life-threatening, or even fatal. In a pooled analysis of studies, ILD/pneumonitis occurred in 15.4% of patients treated with ENHERTU Acute shortness of breath secondary to above Metastatic esophageal cancer with development of esophageal and mediastinal l ymphadenopathy COPD Acute NSTEMI, troponins are downtrending and the patient is currently on IV he jean. Echocardiogram shows a preserved LV function. History of ovarian cancer Chronic anxiety Chronic back pain Hypertension Hyperlipidemia Former smoker Plan Will discuss the case with medical oncology. The patient was started on IV Solu-Medrol. Continue IV Solu-Medrol. She is a bit hesitant as the patient has experienced side effects to steroids in the past. However, this will be crucial in optimizing respiratory status. Will monitor his side effect profile and the patient responded to Solu-Medrol reasonably well for now. Continue oral Lasix and cut down the IV fluids Continue IV heparin cardiology consultations been obtained and echocardiogram was noted Continue Aldactone Utilize Xanax for anxiety Will continue to follow Will be also to obtain prior CAT scans of the chest that were done in the [facility] facility for comparison and the family was made aware of. Time with Patient: Greater than 30
[2025-05-03] MEDS: HYDROcodone/APAP 10-325MG 1 EACH TAB PO PRN (19:39)
[2025-05-04 07:48] LABS: African American GFR (CKD) 79 (>60 ml/min/1.73 sqM); Anion Gap 9 mmol/L; Blood Urea Nitrogen 30 mg/dL (7-17); Calcium 9.9 mg/dL (8.4-10.2); Carbon Dioxide 26 mmol/L (22-30); Chloride 104 mmol/L (98-107); Glucose 150 mg/dL (74-99); Magnesium 1.8 mg/dL (1.6-2.3); Non-African American GFR(CKD) 69 (>60 ml/min/1.73 sqM); Potassium 3.5 mmol/L (3.5-5.1); Sodium 139 mmol/L (137-145)
--- NOTE | 2025-05-04 12:05 | P.PN ---
Subjective Progress Note Date: 05/04/25 H&P Date: 05/01/25 Chief Complaint: Progressive shortness of breath This is a 69-year-old female with past medical history significant for metastatic esophageal cancer on Enhurtu chemo with serial echos every 6-8, recently discontinued related to adverse effects of CHF ,and reports she is scheduled to start a new chemo on Sunday at [facility]. Reports yesterday she developed progressive shortness of breath and presented to the ED. on admission patient was in the low 90s on room air, tachypnic. Currently requiring 4 L nasal cannula to maintain O2 sats in the mid 90s. Afebrile, normal WBC. Denies chest pain, palpitations. Troponins 1.270, 0.810, 0.677. Heparin drip initiated in the ER. Lactic acid 3.2, 2.4, 2.9.. Hemoglobin 14.1, platelets 110. D-dimer 1.91,Chest CTA reported no acute PE, diffuse groundglass opacities, COPD, new posterior retrocrural and lower paraesophageal masses, some enlarged lymphadenopathy within the mediastinum. T. bili 1.7, AST 140, ALT 48, alk phos 238. proBNP 7310. Viral studies negative.Chest x-ray reported prominent pulmonary vasculature, diffuse increased lung markings present bi laterally, heart size normal. Blood pressures soft. May 02, 2025: Cesario is reevaluated for acute hypoxic respiratory failure. Initially thought to be due to CHF possibly from her medication for chemotherapy for her metastatic esophageal carcinoma. She is currently on spironolactone and IV Lasix. Has abnormal troponins consistent with NSTEMI. Vital signs show she is afebrile heart rate is normal pulse oximetry is 92% on 8 L of O2 via nasal cannula. Laboratory studies show no white count she is macrocytic. Plasma lactic acid have been elevated. Her beta natruretic peptide was 7310. Urin alysis showed large leukocytes and was cloudy with occasional bacteria and cyst. COVID flu and RSV are negative. Cardiogram shows LV EF 60% with no motion abnormalities. Consults from oncology and pulmonology were reviewed today. 05/04/2025 continues on nebulized bronchodilators, Symbicort, IV steroids, Ativan ,oral Lasix. Maintaining O2 sats in the low 90s on 8 L high flow nasal cannula. Reports she is breathing easier. Blood sugars controlled. afebrile. Diet intake slowly improving. Renal function stable. Objective - Vital Signs Vital signs: Vital Signs Temp 98 F 05/04/25 11:04 Pulse 94 05/04/25 11:04 Resp 22 05/04/25 11:04 BP 133/72 05/04/25 11:04 Pulse Ox 91 L 05/04/25 11:04 FiO2 40 05/01/25 19:27 Intake & Output 05/03/25 05/04/25 05/04/25 18:59 06:59 18:59 Intake Total 238 480 Output Total 1050 Balance -812 480 Weight 67 kg 67 kg Intake: Oral 238 480 Output: Urine 1050 Other: Voiding Method External Catheter External Catheter # Voids 1 1 # Bowel Movements 1 - Exam GENERAL: Alert and oriented ,sitting up in bed, currently on 8 L high flow nasal cannula, appears comfortable. HEAD: Atraumatic, normocephalic. NECK: Supple, no JVD LUNGS: equal air entry, coarse, occasional fine scattered bibasilar crackles HEART: Regular rate and rhythm without murmurs, rubs or gallops.S1S2 Normal ABDOMEN: Soft, nontender, normoactive bowel sounds. No guarding, no rebound. No masses appreciated. No hepatosplenomegaly. EXTREMITIES:no edema. No clubbing or cyanosis. Peripheral pulses intact. NEUROLOGICAL: Cranial nerves II through XII grossly intact. No focal deficits. SKIN: Warm, Dry, no rashes noted. - Labs CBC & Chem 7: 05/03/25 08:20 05/04/25 06:44 Labs: Abnormal Lab Results - Last 24 Hours (Table) 05/04/25 Range/Units 06:44 BUN 30 H (7-17) mg/dL Glucose 150 H (74-99) mg/dL Assessment and Plan Assessment: Diffuse bilateral interstitial, groundglass pulmonary opacities, suspect [id number] ,pneumonitis. Metastatic esophageal cancer, Enhertu chemo recently discontinued and reports she is scheduled to start a new chemo on Sunday. Acute CHF exacerbation, diastolic dysfunction, EF 55 to 60% New posterior retrocrural and lower paraesophageal masses, some enlarged lymphadenopathy within the mediastinum reported per CTA Acute hypoxic respiratory failure secondary to the above Elevated troponins, trending down, possibly type II NSTEMI secondary to the above. Lactic acidosis Asthma, COPD chronic, secondary to the above, stable History of ovarian cancer status post resection and chemotherapy Former nicotine dependence Hypothyroidism Hypertension .....and multiple other medical issues. Plan: Continue on current medication regimen ,monitoring and symptomatic treatment. Maintain aggressive pulmonary toileting, nebulized bronchodilators,steroids, IV push Lasix. Xanax for anxiety. Currently O2 requirements are at 8L high flow NC-Tapering of O2 as tolerated. Pulmonary reviewing imaging from [facility] .prognosis guarded given multiple complex medical issues. The impression and plan of care has been dictated as directed. : I performed a history and examination of this patient, discussed the same with the dictator. I agree with the dictator's note ,documented as a scribe. Any additional findings or plans will be noted.
[2025-05-04] MEDS: POTASSIUM CHLORIDE ER 20 MEQ TAB.ER PO STA (12:14)
--- NOTE | 2025-05-04 14:13 | P.PN ---
Subjective Progress Note Date: 05/04/25 Principal diagnosis: SOB, anorexia. Hx esophageal adenocarcinoma In f/u today pt reports that she believes her breathing is better, she is able to recline a little further in bed, she did eat whole bowl of soup last night, had a little bit of nausea this morning but, has ate since. She is expectorating Objective - Vital Signs Vital signs: Vital Signs Temp 98 F 05/04/25 11:04 Pulse 94 05/04/25 11:04 Resp 22 05/04/25 11:04 BP 133/72 05/04/25 11:04 Pulse Ox 91 L 05/04/25 11:04 FiO2 40 05/01/25 19:27 Intake & Output 05/03/25 05/04/25 05/04/25 18:59 06:59 18:59 Intake Total 238 480 Output Total 1050 Balance -812 480 Weight 67 kg 67 kg Intake: Oral 238 480 Output: Urine 1050 Other: Voiding Method External Catheter External Catheter # Voids 1 1 # Bowel Movements 1 - Constitutional General appearance: Present: cooperative, no acute distress, thin - EENT Eyes: Present: anicteric sclerae, EOMI ENT: Present: hearing grossly normal - Respiratory Respiratory: right: diminished, left: CTA, bilateral: other (harsh breath sounds bilaterlly but, improved air exchange overall compared to yesterday) - Cardiovascular Rhythm: regular Heart sounds: normal: S1, S2 - Peripheral edema leg Peripheral Edema: bilateral: None - Gastrointestinal General gastrointestinal: Present: normal bowel sounds, soft - Neurologic Neurologic: Present: CNII-XII intact - Musculoskeletal Musculoskeletal: Present: generalized weakness - Psychiatric Psychiatric: Present: A&O x's 3, appropriate affect, intact judgment & insight - Labs CBC & Chem 7: 05/03/25 08:20 05/04/25 06:44 Labs: Abnormal Lab Results - Last 24 Hours (Table) 05/04/25 Range/Units 06:44 BUN 30 H (7-17) mg/dL Glucose 150 H (74-99) mg/dL Assessment and Plan (1) Congestive heart failure Current Visit: Yes Status: Suspected Priority: Medium Code(s): I50.9 - HEART FAILURE, UNSPECIFIED SNOMED Code(s): 63840503 (2) Esophageal adenocarcinoma Current Visit: No Status: Chronic Priority: Medium Code(s): C15.9 - MALIGNANT NEOPLASM OF ESOPHAGUS, UNSPECIFIED SNOMED Code(s): 304565514 (3) Thrush Current Visit: Yes Status: Acute Priority: Medium Code(s): B37.0 - CANDIDAL STOMATITIS SNOMED Code(s): 61928832 Plan: Pneumonitis vs CHF -Consensus among MDs is that resp symptoms felt to be more consistent with penumonits based on imaging, no improvements in resp states post lasix. Solumedrol started. Pt is slowly having improvements in resp symptoms. -Ativan for anxiety caused by steroids per pt, is working very well -Cardiology evaluated and has signed off Esophageal carcinoma -Diagnostic and therapeutic circumstances as described in consult. -Patient is to start her new regimen next week-taxotere/cyramza. This will be delayed as appropriate, till her acute condition resolves. Poor oral intake -Improving slowly Oral thrush -Nystatin suspension cont, improved Doctor attests: I performed a history and physical examination of this patient, developed impression and plan of care. Discussed with dictator. I agree with dictators note, documented as a scribe.
[2025-05-04] MEDS: LORazepam 1 MG TAB PO PRN (15:59)
--- NOTE | 2025-05-04 16:11 | P.PN ---
Subjective Progress Note Date: 05/04/25 On 05/02/2025, the patient is being seen in consult regarding acute hypoxic respiratory failure and development of diffuse bilateral pulmonary infiltrates. 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 The patient was started on palliative chemotherapy with FOLFOX and Herceptin completing 9 cycles. Due to intolerance, her regimen was changed to Herceptin and 5FU infusion only. The patient was subsequently changed to Enhertu on progression. She was on the same till about 03/20, at which time she developed progressive shortness of breath. She had CT scans of the chest done in the [facility] system, most recently in 03/20, that were concerning for pneumonitis, showing bilateral infiltrative changes and groundglass opacities, more prominent in the lung apices. As this is a known side effect of her regimen, that was discontinued, and the patient was placed on steroids. She completed her steroid taper in late 04/19, with improvement in her respiratory complaintsThe patient's subsequent imaging had shown evidence of progression, and the plan was to change her to Taxol and Cyramza, with cycle 1 scheduled to be given next week. The patient came into the emergency department having worsening shortness of breath. She is currently on oxygen and 8 L/min nasal cannula. The blood work showed a WBC count of 7.8 with hemoglobin 12.8 and platelet count 117. BUN is 26 pg 0.8. Lactic acid level was at 2.8 at 1.5. Sodium is 137 and potassium is at 3.1. LFTs are mildly elevated and the patient's proBNP level was 7310. Troponins were 1.2 and 0.80.6 respectively x 3. No history of any cardiac disease. The patient had an echocardiogram done on 05/01/2025 and the patient was found to have a normal left-ventricular ejection fraction with hyperdynamic LV without any significant valvular abnormalities. CT of the chest was also done and the patient was found to have no evidence of any filling defects to indicate pulmonary embolism. There is also mediastinal lymphadenopathy largest in the pretracheal space and at the level of ashlyn. There is also thickening of the retrocrural region extending posterior to the aorta and an area measuring 3.2 x 0.8 cm in size and soft tissue density anterior to the aorta and posterior to the esophagus measuring 3.2 cm in size, consistent with metastatic disease. However, there is diffuse patchy groundglass pulm infiltrates throughout the lung pearl bilaterally and some background COPD. The patient is a former smoker. The patient is started on IV heparin. The patient is also on IV Lasix. She is producing good urine output while being on Lasix 40 mg every 12 hours. Nevertheless, oxygenation remains unchanged. On 05/03/2025, the patient is being seen for a follow-up. The patient is feeling slightly better compared to yesterday. The patient was started on IV Solu- Medrol. Echocardiogram was normal. Has not responded to diuresis and the patient has been switched to oral Lasix 40 mg p.o. daily. Approximately 3.2 with a hemoglobin of 13 and a platelet count of 121. Normal renal function. N ormal electrolytes. No other new complaints. She was complaining of back pain and x-ray of the thoracic spine showed wedge fracture of T8 and T11 and those are essentially chronic. She remains on oxygen and she is still on 8 L of O2 nasal cannula. Repeat chest x-ray shows no significant interval change with diffuse bilateral pulmonary filtrates. The patient is seen today May 04, 2025 in follow-up on the regular medical floor. She is currently resting in bed. Awake and alert in no acute distress. She is still requiring 8 L high flow nasal cannula to maintain O2 saturations in the 90s. Sodium 139. Potassium 3.5. Bicarb 26. BUN 30. Creatinine 0.87. Glucose 150. She remains on DuoNeb inhalations, Symbicort, Solu-Medrol. Remains on oral diuretics. Objective - Vital Signs Vital signs: Vital Signs Temp 97.6 F 05/04/25 15:56 Pulse 100 05/04/25 15:56 Resp 14 05/04/25 15:56 BP 133/82 05/04/25 15:56 Pulse Ox 92 L 05/04/25 15:56 FiO2 40 05/01/25 19:27 Intake & Output 05/03/25 05/04/25 05/04/25 18:59 06:59 18:59 Intake Total 238 480 Output Total 1050 Balance -812 480 Weight 67 kg 67 kg Intake: Oral 238 480 Output: Urine 1050 Other: Voiding Method External Catheter External Catheter # Voids 1 1 # Bowel Movements 1 - Exam GENERAL EXAM: Alert, pleasant 69-year-old female, on 8 L high flow nasal cannula, fairly comfortable in no apparent distress. HEAD: Normocephalic. EYES: Normal reaction of pupils, equal size. NOSE: Clear with pink turbinates. THROAT: No erythema or exudates. NECK: No masses, no JVD. CHEST: No chest wall deformity. LUNGS: Equal air entry with coarse crackles in the bilateral bases. CVS: S1 and S2 normal with no audible murmur, regular rhythm. ABDOMEN: No hepatosplenomegaly, normal bowel sounds, no guarding or rigidity. SPINE: No scoliosis or deformity SKIN: No rashes CENTRAL NERVOUS SYSTEM: No focal deficits, tone is normal in all 4 extremities. EXTREMITIES: There is no peripheral edema. No clubbing, no cyanosis. Peripheral pulses are intact. - Labs CBC & Chem 7: 05/03/25 08:20 05/04/25 06:44 Labs: Abnormal Lab Results - Last 24 Hours (Table) 05/04/25 Range/Units 06:44 BUN 30 H (7-17) mg/dL Glucose 150 H (74-99) mg/dL Assessment and Plan Assessment: Acute hypoxic respiratory failure, currently on 8 L of oxygen by nasal cannula. The patient developed diffuse bilateral interstitial and groundglass pulm infiltrates with areas of consolidation very much consistent with drug-induced pneumonitis. Suspect Enhertu related pneumonitis. ENHERTU can cause interstitial lung disease (ILD) and pneumonitis, which can be serious, life- threatening, or even fatal. In a pooled analysis of studies, ILD/pneumonitis occurred in 15.4% of patients treated with ENHERTU. CT scan from April 09, 2025 from [facility] revealed interval increase groundglass and reticular opacities in the upper to mid lung zones representing drug reaction or organizing pneumonia Acute shortness of breath secondary to above Metastatic esophageal cancer with development of esophageal and mediastinal lymphadenopathy COPD Acute NSTEMI, troponins are downtrending and the patient is currently on IV heparin. Echocardiogram shows a preserved LV function. History of ovarian cancer Chronic anxiety Chronic back pain Hypertension Hyperlipidemia Former smoker Plan: The patient was seen and evaluated Labs and medications reviewed Outside CT scan report reviewed Continue IV Solu-Medrol 60 mg every 6 hours Continue to titrate down the FiO2 as tolerated Continue DuoNeb and elations Continue Symbicort Continue oral diuretics Plan discussed with the patient and family at the bedside We will continue to follow I have personally seen and examined the patient, performed the documentation and the assessment and plan as written. Number of minutes spent on the visit: 10 Dictation was produced using [employer] dictation software. Please excuse any grammatical, word or spelling errors.
--- NOTE | 2025-05-05 13:38 | P.PN ---
Subjective Progress Note Date: 05/05/25 On 05/02/2025, the patient is being seen in consult regarding acute hypoxic respiratory failure and development of diffuse bilateral pulmonary infiltrates. 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 The patient was started on palliative chemotherapy with FOLFOX and Herceptin completing 9 cycles. Due to intolerance, her regimen was changed to Herceptin and 5FU infusion only. The patient was subsequently changed to Enhertu on progression. She was on the same till about 03/20, at which time she developed progressive shortness of breath. She had CT scans of the chest done in the [facility] system, most recently in 03/20, that were concerning for pneumonitis, showing bilateral infiltrative changes and groundglass opacities, more prominent in the lung apices. As this is a known side effect of her regimen, that was discontinued, and the patient was placed on steroids. She completed her steroid taper in late 04/19, with improvement in her respiratory complaintsThe patient's subsequent imaging had shown evidence of progression, and the plan was to change her to Taxol and Cyramza, with cycle 1 scheduled to be given next week. The patient came into the emergency department having worsening shortness of breath. She is currently on oxygen and 8 L/min nasal cannula. The blood work showed a WBC count of 7.8 with hemoglobin 12.8 and platelet count 117. BUN is 26 pg 0.8. Lactic acid level was at 2.8 at 1.5. Sodium is 137 and potassium is at 3.1. LFTs are mildly elevated and the patient's proBNP level was 7310. Troponins were 1.2 and 0.80.6 respectively x 3. No history of any cardiac disease. The patient had an echocardiogram done on 05/01/2025 and the patient was found to have a normal left-ventricular ejection fraction with hyperdynamic LV without any significant valvular abnormalities. CT of the chest was also done and the patient was found to have no evidence of any filling defects to indicate pulmonary embolism. There is also mediastinal lymphadenopathy largest in the pretracheal space and at the level of ashlyn. There is also thickening of the retrocrural region extending posterior to the aorta and an area measuring 3.2 x 0.8 cm in size and soft tissue density anterior to the aorta and posterior to the esophagus measuring 3.2 cm in size, consistent with metastatic disease. However, there is diffuse patchy groundglass pulm infiltrates throughout the lung pearl bilaterally and some background COPD. The patient is a former smoker. The patient is started on IV heparin. The patient is also on IV Lasix. She is producing good urine output while being on Lasix 40 mg every 12 hours. Nevertheless, oxygenation remains unchanged. On 05/03/2025, the patient is being seen for a follow-up. The patient is feeling slightly better compared to yesterday. The patient was started on IV Solu- Medrol. Echocardiogram was normal. Has not responded to diuresis and the patient has been switched to oral Lasix 40 mg p.o. daily. Approximately 3.2 with a hemoglobin of 13 and a platelet count of 121. Normal renal function. N ormal electrolytes. No other new complaints. She was complaining of back pain and x-ray of the thoracic spine showed wedge fracture of T8 and T11 and those are essentially chronic. She remains on oxygen and she is still on 8 L of O2 nasal cannula. Repeat chest x-ray shows no significant interval change with diffuse bilateral pulmonary filtrates. The patient is seen today May 04, 2025 in follow-up on the regular medical floor. She is currently resting in bed. Awake and alert in no acute distress. She is still requiring 8 L high flow nasal cannula to maintain O2 saturations in the 90s. Sodium 139. Potassium 3.5. Bicarb 26. BUN 30. Creatinine 0.87. Glucose 150. She remains on DuoNeb inhalations, Symbicort, Solu-Medrol. Remains on oral diuretics. The patient is seen today May 05, 2025 in follow-up on the selective care unit. She is awake and alert in no acute distress. Sitting up in bed. Currently requiring 8 L high flow nasal cannula. She remains on DuoNeb inhalations, Symbicort, Solu-Medrol. Remains on oral diuretics. No new labs today. Objective - Vital Signs Vital signs: Vital Signs Temp 97.7 F 05/05/25 11:04 Pulse 92 05/05/25 12:04 Resp 14 05/05/25 11:04 BP 128/75 05/05/25 11:04 Pulse Ox 93 L 05/05/25 11:04 FiO2 40 05/01/25 19:27 Intake & Output 05/04/25 05/05/25 05/05/25 18:59 06:59 18:59 Intake Total 480 Output Total 650 400 Balance -170 -400 Weight 67 kg 68.5 kg Intake: Oral 480 Output: Urine 650 400 Other: Voiding Method External Catheter External Catheter # Voids 150 - Exam GENERAL EXAM: Alert, 69-year-old female, on 8 L high flow nasal cannula, comfortable in no apparent distress. HEAD: Normocephalic. EYES: Normal reaction of pupils, equal size. NOSE: Clear with pink turbinates. THROAT: No erythema or exudates. NECK: No masses, no JVD. CHEST: No chest wall deformity. LUNGS: Equal air entry with coarse crackles in the bilateral bases. CVS: S1 and S2 normal with no audible murmur, regular rhythm. ABDOMEN: No hepatosplenomegaly, normal bowel sounds, no guarding or rigidity. SPINE: No scoliosis or deformity SKIN: No rashes CENTRAL NERVOUS SYSTEM: No focal deficits, tone is normal in all 4 extremities. EXTREMITIES: There is no peripheral edema. No clubbing, no cyanosis. Peripheral pulses are intact. - Labs CBC & Chem 7: 05/03/25 08:20 05/04/25 06:44 Assessment and Plan Assessment: Acute hypoxic respiratory failure, currently on 8 L of oxygen by nasal cannula. The patient developed diffuse bilateral interstitial and groundglass pulm infiltrates with areas of consolidation very much consistent with drug-induced pneumonitis. Suspect Enhertu related pneumonitis. ENHERTU can cause interstitial lung disease (ILD) and pneumonitis, which can be serious, life- threatening, or even fatal. In a pooled analysis of studies, ILD/pneumonitis occurred in 15.4% of patients treated with ENHERTU. CT scan from April 09, 2025 from [facility] revealed interval increase groundglass and reticular opacities in the upper to mid lung zones representing drug reaction or organizing pneumonia Acute shortness of breath secondary to above Metastatic esophageal cancer with development of esophageal and mediastinal lymphadenopathy COPD Acute NSTEMI, troponins are downtrending and the patient is currently on IV heparin. Echocardiogram shows a preserved LV function. History of ovarian cancer Chronic anxiety Chronic back pain Hypertension Hyperlipidemia Former smoker Plan: The patient was seen and evaluated Medications reviewed Continue IV Solu-Medrol 60 mg every 6 hours Continue to titrate down the FiO2 as tolerated Currently down to 5 L high flow nasal cannula Continue DuoNeb and elations Continue Symbicort Continue oral diuretics Most likely will require home oxygen Plan discussed with the patient and family at the bedside We will continue to follow I have personally seen and examined the patient, performed the documentation and the assessment and plan as written. Number of minutes spent on the visit: 10 Dictation was produced using [employer] dictation software. Please excuse any grammatical, word or spelling errors.
--- NOTE | 2025-05-05 14:05 | P.PN ---
Subjective Progress Note Date: 05/05/25 Principal diagnosis: SOB, anorexia. Hx esophageal adenocarcinoma In f/u today pt cont to report that she feels she is having slow improvements in her resp status. Today O2 has been decreased to 5L, pending PT to get her moving. Her appetite is fair, no N,V. Objective - Vital Signs Vital signs: Vital Signs Temp 97.7 F 05/05/25 11:04 Pulse 89 05/05/25 11:04 Resp 14 05/05/25 11:04 BP 128/75 05/05/25 11:04 Pulse Ox 93 L 05/05/25 11:04 FiO2 40 05/01/25 19:27 Intake & Output 05/04/25 05/05/25 05/05/25 18:59 06:59 18:59 Intake Total 480 Output Total 650 400 Balance -170 -400 Weight 67 kg 68.5 kg Intake: Oral 480 Output: Urine 650 400 Other: Voiding Method External Catheter External Catheter # Voids 150 - Constitutional General appearance: Present: cooperative, no acute distress, thin - EENT Eyes: Present: anicteric sclerae, EOMI ENT: Present: hearing grossly normal - Respiratory Respiratory: right: diminished (RUL), bilateral: wheezing (end expiratory), other (fairly decent air exchange bilaterally) - Cardiovascular Rhythm: regular Heart sounds: normal: S1, S2 Abnormal Heart Sounds: Absent: systolic murmur, diastolic murmur, rub, S3 Gallop, S4 Gallop, click, other - Peripheral edema leg Peripheral Edema: bilateral: None - Integumentary Integumentary: Present: normal - Neurologic Neurologic: Present: CNII-XII intact - Musculoskeletal Musculoskeletal: Present: generalized weakness - Psychiatric Psychiatric: Present: A&O x's 3, appropriate affect, intact judgment & insight - Labs CBC & Chem 7: 05/03/25 08:20 05/04/25 06:44 Assessment and Plan (1) Congestive heart failure Current Visit: Yes Status: Suspected Priority: Medium Code(s): I50.9 - HEART FAILURE, UNSPECIFIED SNOMED Code(s): 68746615 (2) Esophageal adenocarcinoma Current Visit: No Status: Chronic Priority: Medium Code(s): C15.9 - MALIGNANT NEOPLASM OF ESOPHAGUS, UNSPECIFIED SNOMED Code(s): 469180743 (3) Thrush Current Visit: Yes Status: Acute Priority: Medium Code(s): B37.0 - CANDIDAL STOMATITIS SNOMED Code(s): 17402911 Plan: Pneumonitis vs CHF -Consensus among MDs is that resp symptoms felt to be more consistent with penumonits based on imaging, no improvements in resp states post lasix. Solumedrol started. Pt is slowly having improvements in resp symptoms. Beging to titrate solumedrol, 60mg Q 8 hours. Will plan to transition to oral pred in the next few days -Ativan for anxiety caused by steroids per pt, is working very well. Cont -Cardiology evaluated and has signed off Esophageal carcinoma -Diagnostic and therapeutic circumstances as described in consult. -Patient is to start her new regimen next week-taxotere/cyramza. This will be delayed as appropriate, till her acute condition resolves. Poor oral intake -Continued slow improvements Oral thrush -Nystatin suspension cont, improved
--- NOTE | 2025-05-05 14:41 | P.PN ---
Subjective Progress Note Date: 05/05/25 H&P Date: 05/01/25 Chief Complaint: Progressive shortness of breath This is a 69-year-old female with past medical history significant for metastatic esophageal cancer on Enhurtu chemo with serial echos every 6-8, recently discontinued related to adverse effects of CHF ,and reports she is scheduled to start a new chemo on Sunday at [place]. Reports yesterday she developed progressive shortness of breath and presented to the ED. on admission patient was in the low 90s on room air, tachypnic. Currently requiring 4 L nasal cannula to maintain O2 sats in the mid 90s. Afebrile, normal WBC. Denies chest pain, palpitations. Troponins 1.270, 0.810, 0.677. Heparin drip initiated in the ER. Lactic acid 3.2, 2.4, 2.9.. Hemoglobin 14.1, platelets 110. D-dimer 1.91,Chest CTA reported no acute PE, diffuse groundglass opacities, COPD, new posterior retrocrural and lower paraesophageal masses, some enlarged lymphadenopathy within the mediastinum. T. bili 1.7, AST 140, ALT 48, alk phos 238. proBNP 7310. Viral studies negative.Chest x-ray reported prominent pulmonary vasculature, diffuse increased lung markings present bi laterally, heart size normal. Blood pressures soft. May 02, 2025: Cesario is reevaluated for acute hypoxic respiratory failure. Initially thought to be due to CHF possibly from her medication for chemotherapy for her metastatic esophageal carcinoma. She is currently on spironolactone and IV Lasix. Has abnormal troponins consistent with NSTEMI. Vital signs show she is afebrile heart rate is normal pulse oximetry is 92% on 8 L of O2 via nasal cannula. Laboratory studies show no white count she is macrocytic. Plasma lactic acid have been elevated. Her beta natruretic peptide was 7310. Urin alysis showed large leukocytes and was cloudy with occasional bacteria and cyst. COVID flu and RSV are negative. Cardiogram shows LV EF 60% with no motion abnormalities. Consults from oncology and pulmonology were reviewed today. 05/04/2025 continues on nebulized bronchodilators, Symbicort, IV steroids, Ativan ,oral Lasix. Maintaining O2 sats in the low 90s on 8 L high flow nasal cannula. Reports she is breathing easier. Blood sugars controlled. afebrile. Diet intake slowly improving. Renal function stable. 05/05/2025 chronic pain, declined pain patch or stronger oral medications such as Percocet; reports pain is currently controlled on regimen of [place] with Ativan for anxiety. Awaiting shower. PT pending. Maintaining O2 sats in the low 90s on 8 L nasal cannula. Objective - Vital Signs Vital signs: Vital Signs Temp 97.6 F 05/05/25 08:10 Pulse 89 05/05/25 08:35 Resp 14 05/05/25 08:10 BP 125/73 05/05/25 08:10 Pulse Ox 94 L 05/05/25 08:26 FiO2 40 05/01/25 19:27 Intake & Output 05/04/25 05/05/25 05/05/25 18:59 06:59 18:59 Intake Total 480 Output Total 650 400 Balance -170 -400 Weight 67 kg 68.5 kg Intake: Oral 480 Output: Urine 650 400 Other: Voiding Method External Catheter External Catheter # Voids 150 - Exam GENERAL: Alert and oriented ,sitting up in bed, currently on 8 L high flow nasal cannula, appears comfortable. HEAD: Atraumatic, normocephalic. NECK: Supple, no JVD LUNGS: equal air entry, coarse scattered bibasilar crackles HEART: Regular rate and rhythm without murmurs, rubs or gallops.S1S2 Normal ABDOMEN: Soft, nontender, normoactive bowel sounds. No guarding, no rebound. No masses appreciated. EXTREMITIES:no edema. No clubbing or cyanosis. Peripheral pulses intact. NEUROLOGICAL: Cranial nerves II through XII grossly intact. No focal deficits. SKIN: Warm, Dry, no rashes noted. - Labs CBC & Chem 7: 05/03/25 08:20 05/04/25 06:44 Assessment and Plan Assessment: Diffuse bilateral interstitial, groundglass pulmonary opacities, suspect [id number] ,pneumonitis. Metastatic esophageal cancer, Enhertu chemo recently discontinued and reports she is scheduled to start a new chemo on Sunday. Acute CHF exacerbation, diastolic dysfunction, EF 55 to 60%, ruled out as per cardiology and pulmonary. New posterior retrocrural and lower paraesophageal masses, some enlarged lymphadenopathy within the mediastinum reported per CTA Acute hypoxic respiratory failure secondary to the above Elevated troponins, trending down, possibly type II NSTEMI secondary to the above. Lactic acidosis Asthma, COPD chronic, secondary to the above, stable History of ovarian cancer status post resection and chemotherapy Former nicotine dependence Hypothyroidism Hypertension .....and multiple other medical issues. Plan: Continue on current medication regimen ,monitoring and symptomatic treatment. Pain management.aggressive pulmonary toileting, nebulized bronch odilators,steroids, IV push Lasix. Titrate O2 to maintain O2 sat greater than or equal to 90% -as per pulmonary. Increase ambulation as tolerated. PT .prognosis guarded given multiple complex medical issues. The impression and plan of care has been dictated as directed. : I performed a history and examination of this patient, discussed the same with the dictator. I agree with the dictator's note ,documented as a scribe. Any additional findings or plans will be noted.
--- NOTE | 2025-05-05 18:18 | CT ---
EXAMINATION TYPE: CT brain wo con DATE OF EXAM: 05/05/2025 5:35 PM COMPARISON: 06/26/2024 CLINICAL INDICATION: Female, 69 years old with history of Intermittent confusion, weakness, confusion TECHNIQUE: CT of the brain is performed utilizing 3 mm thick sections through the posterior fossa and 3 mm thick sections through the remaining calvarium. Study is performed within 24 hours of arrival to the hospital. Contrast used: mL of , (none if empty) CT DLP: 1101.7 mGycm, Automated exposure control for dose reduction was used. FINDINGS: No abnormal hyperdensity is present to suggest an acute intracranial hemorrhage. Suspecting calcified meningioma is stable posterior right parietal-occipital region No acute infarcts are evident. Ventricles and sulci are appropriate for the patient age. Paranasal sinuses and mastoid air cells within the mutda-ms-esgi are clear. IMPRESSION: 1. No acute intracranial process. Follow up MRI can be performed as clinically indicated. 2. Suspected calcified meningioma is stable [facility], , 05/05/2025 6:16 PM
[2025-05-05] MEDS: methylPREDNISolone SOD SUCCI 125 MG/2 ML VIAL IV SCH (20:46)
--- NOTE | 2025-05-06 15:29 | P.PN ---
Subjective Progress Note Date: 05/06/25 H&P Date: 05/01/25 Chief Complaint: Progressive shortness of breath This is a 69-year-old female with past medical history significant for metastatic esophageal cancer on Enhurtu chemo with serial echos every 6-8, recently discontinued related to adverse effects of CHF ,and reports she is scheduled to start a new chemo on Sunday at [place]. Reports yesterday she developed progressive shortness of breath and presented to the ED. on admission patient was in the low 90s on room air, tachypnic. Currently requiring 4 L nasal cannula to maintain O2 sats in the mid 90s. Afebrile, normal WBC. Denies chest pain, palpitations. Troponins 1.270, 0.810, 0.677. Heparin drip initiated in the ER. Lactic acid 3.2, 2.4, 2.9.. Hemoglobin 14.1, platelets 110. D-dimer 1.91,Chest CTA reported no acute PE, diffuse groundglass opacities, COPD, new posterior retrocrural and lower paraesophageal masses, some enlarged lymphadenopathy within the mediastinum. T. bili 1.7, AST 140, ALT 48, alk phos 238. proBNP 7310. Viral studies negative.Chest x-ray reported prominent pulmonary vasculature, diffuse increased lung markings present bi laterally, heart size normal. Blood pressures soft. May 02, 2025: Cesario is reevaluated for acute hypoxic respiratory failure. Initially thought to be due to CHF possibly from her medication for chemotherapy for her metastatic esophageal carcinoma. She is currently on spironolactone and IV Lasix. Has abnormal troponins consistent with NSTEMI. Vital signs show she is afebrile heart rate is normal pulse oximetry is 92% on 8 L of O2 via nasal cannula. Laboratory studies show no white count she is macrocytic. Plasma lactic acid have been elevated. Her beta natruretic peptide was 7310. Urin alysis showed large leukocytes and was cloudy with occasional bacteria and cyst. COVID flu and RSV are negative. Cardiogram shows LV EF 60% with no motion abnormalities. Consults from oncology and pulmonology were reviewed today. 05/04/2025 continues on nebulized bronchodilators, Symbicort, IV steroids, Ativan ,oral Lasix. Maintaining O2 sats in the low 90s on 8 L high flow nasal cannula. Reports she is breathing easier. Blood sugars controlled. afebrile. Diet intake slowly improving. Renal function stable. 05/05/2025 chronic pain, declined pain patch or stronger oral medications such as Percocet; reports pain is currently controlled on regimen of [place] with Ativan for anxiety. Awaiting shower. PT pending. Maintaining O2 sats in the low 90s on 8 L nasal cannula. 05/06/2025 oxygen titrated down to 6 L nasal cannula, maintaining O2 sats in the low 90s.didnot sleep well last night. Ambulating in room, tolerated exertion well. Requesting regular diet. Pain controlled. Brain CT reported no acute intracranial process. Objective - Vital Signs Vital signs: Vital Signs Temp 97.5 F L 05/06/25 08:00 Pulse 86 05/06/25 08:00 Resp 18 05/06/25 08:00 BP 129/84 05/06/25 08:00 Pulse Ox 94 L 05/06/25 08:00 FiO2 40 05/01/25 19:27 Intake & Output 05/05/25 05/06/25 05/06/25 18:59 06:59 18:59 Intake Total 30 10 Output Total 800 Balance -800 30 10 Weight 65 kg Intake: IV 30 10 Invasive Line 2 20 Invasive Line 3 10 10 Output: Urine 800 Other: Voiding Method External Catheter Toilet # Voids 1 1 - Exam GENERAL: Fatigued,Alert and oriented ,sitting up in bed, currently on 8 L high flow nasal cannula, appears comfortable. HEAD: Atraumatic, normocephalic. NECK: Supple, no JVD LUNGS: equal air entry, coarse scattered bibasilar crackles HEART: Regular rate and rhythm without murmurs, rubs or gallops.S1S2 Normal ABDOMEN: Soft, nontender, normoactive bowel sounds. No guarding, no rebound. No masses appreciated. EXTREMITIES:no edema. No clubbing or cyanosis. Peripheral pulses intact. NEUROLOGICAL: Cranial nerves II through XII grossly intact. No focal deficits. SKIN: Warm, Dry, no rashes noted. - Labs CBC & Chem 7: 05/07/25 06:55 05/07/25 06:55 Assessment and Plan Assessment: Diffuse bilateral interstitial, groundglass pulmonary opacities, suspect [id number] ,pneumonitis. Metastatic esophageal cancer, Enhertu chemo recently discontinued and reports she is scheduled to start a new chemo on Sunday. Acute CHF exacerbation, diastolic dysfunction, EF 55 to 60%, ruled out as per cardiology and pulmonary. New posterior retrocrural and lower paraesophageal masses, some enlarged lymphadenopathy within the mediastinum reported per CTA Acute hypoxic respiratory failure secondary to the above Elevated troponins, trending down, possibly type II NSTEMI secondary to the above. Lactic acidosis Asthma, COPD chronic, secondary to the above, stable History of ovarian cancer status post resection and chemotherapy Former nicotine dependence Hypothyroidism Hypertension .....and multiple other medical issues. Plan: Continue on current medication regimen ,monitoring and symptomatic treatment. Change diet to Regular- family encouraged to bring food in. Pain management.aggressive pulmonary toileting, nebulized bronchodilators,steroids, Lasix. Titrate O2 to maintain O2 sat greater than or equal to 90% -as per pulmonary. Increase ambulation as tolerated. PT .prognosis guarded given multiple complex medical issues. The impression and plan of care has been dictated as directed. : I performed a history and examination of this patient, discussed the same with the dictator. I agree with the dictator's note ,documented as a scribe. Any additional findings or plans will be noted.
--- NOTE | 2025-05-06 15:48 | P.PN ---
Subjective Progress Note Date: 05/06/25 On 05/02/2025, the patient is being seen in consult regarding acute hypoxic respiratory failure and development of diffuse bilateral pulmonary infiltrates. 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 The patient was started on palliative chemotherapy with FOLFOX and Herceptin completing 9 cycles. Due to intolerance, her regimen was changed to Herceptin and 5FU infusion only. The patient was subsequently changed to Enhertu on progression. She was on the same till about 03/20, at which time she developed progressive shortness of breath. She had CT scans of the chest done in the [facility], most recently in 03/20, that were concerning for pneumonitis, showing bilateral infiltrative changes and groundglass opacities, more prominent in the lung apices. As this is a known side effect of her regimen, that was discontinued, and the patient was placed on steroids. She completed her steroid taper in late 04/19, with improvement in her respiratory complaintsThe patient's subsequent imaging had shown evidence of progression, and the plan was to change her to Taxol and Cyramza, with cycle 1 scheduled to be given next week. The patient came into the emergency department having worsening shortness of breath. She is currently on oxygen and 8 L/min nasal cannula. The blood work showed a WBC count of 7.8 with hemoglobin 12.8 and platelet count 117. BUN is 26 pg 0.8. Lactic acid level was at 2.8 at 1.5. Sodium is 137 and potassium is at 3.1. LFTs are mildly elevated and the patient's proBNP level was 7310. Troponins were 1.2 and 0.80.6 respectively x 3. No history of any cardiac disease. The patient had an echocardiogram done on 05/01/2025 and the patient was found to have a normal left-ventricular ejection fraction with hyperdynamic LV without any significant valvular abnormalities. CT of the chest was also done and the patient was found to have no evidence of any filling defects to indicate pulmonary embolism. There is also mediastinal lymphadenopathy largest in the pretracheal space and at the level of [place]. There is also thickening of the retrocrural region extending posterior to the aorta and an area measuring 3.2 x 0.8 cm in size and soft tissue density anterior to the aorta and posterior to the esophagus measuring 3.2 cm in size, consistent with metastatic disease. However, there is diffuse patchy groundglass pulm infiltrates throughout the lung pearl bilaterally and some background COPD. The patient is a former smoker. The patient is started on IV heparin. The patient is also on IV Lasix. She is producing good urine output while being on Lasix 40 mg every 12 hours. Nevertheless, oxygenation remains unchanged. On 05/03/2025, the patient is being seen for a follow-up. The patient is feeling slightly better compared to yesterday. The patient was started on IV Solu- Medrol. Echocardiogram was normal. Has not responded to diuresis and the patient has been switched to oral Lasix 40 mg p.o. daily. Approximately 3.2 with a hemoglobin of 13 and a platelet count of 121. Normal renal function. N ormal electrolytes. No other new complaints. She was complaining of back pain and x-ray of the thoracic spine showed wedge fracture of T8 and T11 and those are essentially chronic. She remains on oxygen and she is still on 8 L of O2 nasal cannula. Repeat chest x-ray shows no significant interval change with diffuse bilateral pulmonary filtrates. The patient is seen today May 04, 2025 in follow-up on the regular medical floor. She is currently resting in bed. Awake and alert in no acute distress. She is still requiring 8 L high flow nasal cannula to maintain O2 saturations in the 90s. Sodium 139. Potassium 3.5. Bicarb 26. BUN 30. Creatinine 0.87. Glucose 150. She remains on DuoNeb inhalations, Symbicort, Solu-Medrol. Remains on oral diuretics. The patient is seen today May 05, 2025 in follow-up on the selective care unit. She is awake and alert in no acute distress. Sitting up in bed. Currently requiring 8 L high flow nasal cannula. She remains on DuoNeb inhalations, Symbicort, Solu-Medrol. Remains on oral diuretics. No new labs today. The patient is seen today May 06, 2025 in follow-up on the selective care unit. She is currently resting in bed. Awake and alert in no acute distress. Maintaining good O2 saturations in the 90s on 4 L/min per nasal cannula. She is afebrile. Hemodynamically stable. CT scan of the brain revealed no acute intracranial process. No new labs today. She remains on DuoNeb inhalations, Symbicort, Solu-Medrol. Remains on oral diuretics. Objective - Vital Signs Vital signs: Vital Signs Temp 98 F 05/06/25 12:00 Pulse 90 05/06/25 12:49 Resp 18 05/06/25 12:00 BP 136/79 05/06/25 12:00 Pulse Ox 98 05/06/25 12:40 FiO2 40 05/01/25 19:27 Intake & Output 05/05/25 05/06/25 05/06/25 18:59 06:59 18:59 Intake Total 30 700 Output Total 800 Balance -800 30 700 Weight 65 kg Intake: IV 30 20 Invasive Line 2 20 Invasive Line 3 10 20 Oral 680 Output: Urine 800 Other: Voiding Method External Catheter Toilet Toilet # Voids 1 1 2 - Exam GENERAL EXAM: Alert, pleasant 69-year-old female, resting in bed, on 4 L high flow nasal cannula, comfortable in no apparent distress. HEAD: Normocephalic. EYES: Normal reaction of pupils, equal size. NOSE: Clear with pink turbinates. THROAT: No erythema or exudates. NECK: No masses, no JVD. CHEST: No chest wall deformity. LUNGS: Equal air entry with coarse crackles in the bilateral bases. CVS: S1 and S2 normal with no audible murmur, regular rhythm. ABDOMEN: No hepatosplenomegaly, normal bowel sounds, no guarding or rigidity. SPINE: No scoliosis or deformity SKIN: No rashes CENTRAL NERVOUS SYSTEM: No focal deficits, tone is normal in all 4 extremities. EXTREMITIES: There is no peripheral edema. No clubbing, no cyanosis. Peripheral pulses are intact. - Labs CBC & Chem 7: 05/03/25 08:20 05/04/25 06:44 Assessment and Plan Assessment: Acute hypoxic respiratory failure, currently on 4 L of oxygen by nasal cannula. The patient developed diffuse bilateral interstitial and groundglass pulm infi ltrates with areas of consolidation very much consistent with drug-induced pneumonitis. Suspect Enhertu related pneumonitis. ENHERTU can cause interstitial lung disease (ILD) and pneumonitis, which can be serious, life- threatening, or even fatal. In a pooled analysis of studies, ILD/pneumonitis occ urred in 15.4% of patients treated with ENHERTU. CT scan from April 09, 2025 from [facility] revealed interval increase groundglass and reticular opacities in the upper to mid lung zones representing drug reaction or organizing pneumonia Acute shortness of breath secondary to above Metastatic esophageal cancer with development of esophageal and mediastinal lymphadenopathy COPD Acute NSTEMI, troponins are downtrending and the patient is currently on IV heparin. Echocardiogram shows a preserved LV function. History of ovarian cancer Chronic anxiety Chronic back pain Hypertension Hyperlipidemia Former smoker Plan: The patient was seen and evaluated Medications reviewed Continue IV Solu-Medrol 60 mg every 6 hours Continue to titrate down the FiO2 as tolerated Currently down to 4 L high flow nasal cannula Continue DuoNeb inhalations Continue Symbicort Continue oral diuretics Most likely will require home oxygen Plan discussed with the patient and family at the bedside We will continue to follow I have personally seen and examined the patient, performed the documentation and the assessment and plan as written. Number of minutes spent on the visit: 10 Dictation was produced using [employer] dictation software. Please excuse any grammatical, word or spelling errors.
--- NOTE | 2025-05-06 17:11 | P.PN ---
Subjective Progress Note Date: 05/06/25 Principal diagnosis: SOB, anorexia. Hx esophageal adenocarcinoma In f/u today pt reporting stable resp status, she did ambulate to bathroom, O2 sat dropped to 78% per family. Took about 10 min for sats to recover. Today O2 has been decreased to 4L, pending PT to get her moving. Her appetite is fair, no N,V. Family reporting that pt is confused at times. Objective - Vital Signs Vital signs: Vital Signs Temp 97.5 F L 05/06/25 08:00 Pulse 80 05/06/25 09:22 Resp 18 05/06/25 08:00 BP 129/84 05/06/25 08:00 Pulse Ox 97 05/06/25 09:13 FiO2 40 05/01/25 19:27 Intake & Output 05/05/25 05/06/25 05/06/25 18:59 06:59 18:59 Intake Total 30 450 Output Total 800 Balance -800 30 450 Weight 65 kg Intake: IV 30 10 Invasive Line 2 20 Invasive Line 3 10 10 Oral 440 Output: Urine 800 Other: Voiding Method External Catheter Toilet Toilet # Voids 1 1 - Constitutional General appearance: Present: cooperative, no acute distress, thin - EENT Eyes: Present: anicteric sclerae, EOMI ENT: Present: hearing grossly normal - Respiratory Respiratory: bilateral: wheezing (end expiratory) - Cardiovascular Abnormal Heart Sounds: Absent: systolic murmur, diastolic murmur, rub, S3 Gallop, S4 Gallop, click, other - Peripheral edema leg Peripheral Edema: bilateral: None - Neurologic Neurologic: Present: CNII-XII intact - Musculoskeletal Musculoskeletal: Present: generalized weakness - Psychiatric Psychiatric: Present: A&O x's 3, appropriate affect - Labs CBC & Chem 7: 05/03/25 08:20 05/04/25 06:44 - Imaging and Cardiology CT Scan - head: report reviewed Assessment and Plan (1) Congestive heart failure Current Visit: Yes Status: Suspected Priority: Medium Code(s): I50.9 - HEART FAILURE, UNSPECIFIED SNOMED Code(s): 04519766 (2) Esophageal adenocarcinoma Current Visit: No Status: Chronic Priority: Medium Code(s): C15.9 - MALIGNANT NEOPLASM OF ESOPHAGUS, UNSPECIFIED SNOMED Code(s): 604998824 (3) Thrush Current Visit: Yes Status: Acute Priority: Medium Code(s): B37.0 - CANDIDAL STOMATITIS SNOMED Code(s): 59685237 Plan: Pneumonitis vs CHF -Consensus among MDs is that resp symptoms felt to be more consistent with penumonits based on imaging, no improvements in resp states post lasix. Solumedrol started. Pt is slowly having improvements in resp symptoms. Titrated solumedrol to 60mg Q 8 hours yesterday. Resp status stable. Will plan to transition to oral pred tomorrow -Ativan for anxiety caused by steroids per pt, is working very well. Cont -Cardiology evaluated and has signed off -Per pt request, have changed her to a regular diet Esophageal carcinoma -Diagnostic and therapeutic circumstances as described in consult. -Patient is to start her new regimen-taxotere/cyramza. This will be delayed as appropriate, until her acute condition is adequately treated. Poor oral intake -Continued slow improvements Oral thrush -Nystatin suspension cont, improved Intermittent confusion -Family reported concerns about pt intermittent confusion. They were concerned that confusion may be related to pain meds that pt is getting rather regularly. Pt reports "breaking" pain in her back to staff but, her family states she never mentions pain to them. I explained that it is the job of the staff caring for the pt to inquire about pain and to provide medications for treatment of the same. Pt pain is what she says it is. Offered another possible reason for pt intermittent confusion-hospitalization, steroids, and [id number] just pain meds. Family verbalized understanding. Will cont to monitor for now. -Added lidoderm for non-narcotic pain control -Brain CT without contrast neg
[2025-05-06] MEDS: LIDOCAINE 4% PATCH TOPICAL SCH (17:18)
[2025-05-07] MEDS: METOPROLOL SUCCINATE (ER) 25 MG TAB.ER.24H PO SCH (00:04)
[2025-05-07] MEDS: METOPROLOL TARTRATE 25 MG TAB PO SCH ×2 (00:09→20:13)
[2025-05-07] MEDS: APIXABAN 5 MG TAB PO SCH (00:09)
[2025-05-07 08:15] LABS: African American GFR (CKD) 81 (>60 ml/min/1.73 sqM); Anion Gap 7 mmol/L; Blood Urea Nitrogen 34 mg/dL (7-17); Calcium 9.9 mg/dL (8.4-10.2); Carbon Dioxide 27 mmol/L (22-30); Chloride 101 mmol/L (98-107); Glucose 119 mg/dL (74-99); Non-African American GFR(CKD) 70 (>60 ml/min/1.73 sqM); Potassium 4.1 mmol/L (3.5-5.1); Sodium 135 mmol/L (137-145)
[2025-05-07 09:36] LABS: Basophils # (A) 0.01 10*3/uL (0.00-0.10); Basophils % (A) 0.1 %; HCT 37.9 % (37.2-46.3); HGB 12.9 g/dL (12.0-15.0); Lymphocytes # (A) 0.24 10*3/uL (0.90-5.00); Lymphocytes % (A) 2.6 %; MCH 35.6 pg (27.0-32.0); MCV 104.7 fL (80.0-97.0); Mean Platelet Volume 10.5 fL (9.5-12.2); Monocytes # (A) 0.31 10*3/uL (0.20-1.00); Monocytes % (A) 3.3 %; Neutrophils # (A) 8.61 10*3/uL (1.80-7.70); Neutrophils % (A) 92.6 %; Platelet Count 151 10*3/uL (140-440); RBC 3.62 10*6/uL (4.10-5.20)
[2025-05-07] MEDS: predniSONE 20 MG TAB PO SCH (10:59)
--- NOTE | 2025-05-07 11:32 | XR ---
EXAMINATION TYPE: XR chest 1V portable DATE OF EXAM: 05/07/2025 11:12 AM COMPARISON: Chest radiographs from 05/03/2025. CLINICAL INDICATION: Female, 69 years old with history of CHF; TECHNIQUE: XR chest 1V portable Frontal view of the chest. FINDINGS: Lungs/Pleura: There is no evidence of pleural effusion, focal consolidation, or pneumothorax. Pulmonary vascularity: Unremarkable. Heart/mediastinum: Cardiomediastinal silhouette is unremarkable. Musculoskeletal: No acute osseous pathology. Other findings: None Right chest [id number] terminating in spur vena cava. IMPRESSION: Multifocal airspace opacities correlate for pneumonia versus pulmonary edema. [facility], , 05/07/2025 11:29 AM
--- NOTE | 2025-05-07 12:39 | P.PN ---
Subjective HISTORY OF PRESENT ILLNESS: Cardiology was reconsulted secondary to A-fib with RVR. Patient went into atrial fibrillation yesterday. She denies any known history of atrial fibrillation. She is sinus mechanism this morning the time of examination. She denies chest pain or pressure. Denies shortness of breath. She is complaining of upper back pain this morning. PHYSICAL EXAM: VITAL SIGNS: Reviewed. GENERAL: Well-developed in no acute distress. NECK: Supple. No JVD or thyromegaly LUNGS: Respirations even and unlabored. Lungs essentially clear to auscultation bilaterally. HEART: Regular rate and rhythm. S1 and S2 heard. EXTREMITIES: Normal range of motion. No clubbing or cyanosis. Peripheral pulses intact. No lower extremity edema ASSESSMENT: New onset paroxysmal atrial fibrillation, maintaining sinus mechanism Elevated troponin, type II NH secondary to oxygen supply/demand mismatch Acute hypoxic respiratory failure Esophageal cancer PLAN: Continue anticoagulation with Eliquis Discontinue aspirin Add metoprolol tartrate 25 mg twice a day Continue telemetry monitoring Patient is stable from a cardiac standpoint with no further inpatient recommendations We will sign off. Please reconsult if needed. Nurse practitioner note has been reviewed by physician. Signing provider agrees with the documented findings, assessment, and plan of care documented by [employer] as a scribe. Objective - Vital Signs Vital signs: Vital Signs Temp 97.6 F 05/07/25 08:12 Pulse 85 05/07/25 11:57 Resp 16 05/07/25 11:57 BP 130/84 05/07/25 11:57 Pulse Ox 92 L 05/07/25 11:57 FiO2 40 05/01/25 19:27 Intake & Output 05/06/25 05/07/25 05/07/25 18:59 06:59 18:59 Intake Total 700 20 Balance 700 20 Weight 66.1 kg Intake: IV 20 20 Invasive Line 3 20 20 Oral 680 Other: Voiding Method Toilet Toilet # Voids 2 1 - Labs CBC & Chem 7: 05/07/25 06:55 05/07/25 06:55 Labs: Abnormal Lab Results - Last 24 Hours (Table) 05/07/25 05/07/25 Range/Units 06:55 06:55 RBC 3.62 L (4.10-5.20) 10*6/uL MCV 104.7 H (80.0-97.0) fL MCH 35.6 H (27.0-32.0) pg Immature Gran # 0.13 H (0.00-0.04) 10*3/uL Neutrophils # 8.61 H (1.80-7.70) 10*3/uL Lymphocytes # 0.24 L (0.90-5.00) 10*3/uL Eosinophils # 0.00 L (0.04-0.35) 10*3/uL Sodium 135 L (137-145) mmol/L BUN 34 H (7-17) mg/dL Glucose 119 H (74-99) mg/dL
--- NOTE | 2025-05-07 14:14 | P.PN ---
Subjective Progress Note Date: 05/07/25 Principal diagnosis: SOB, anorexia. Hx esophageal adenocarcinoma In f/u today pt reporting improved resp status, she has been ambulating in the room/around the bed, O2 on 2L today. Her appetite is fair, no N,V. No confusion reported today. Objective - Vital Signs Vital signs: Vital Signs Temp 97.6 F 05/07/25 08:12 Pulse 85 05/07/25 11:57 Resp 16 05/07/25 11:57 BP 130/84 05/07/25 11:57 Pulse Ox 92 L 05/07/25 11:57 FiO2 40 05/01/25 19:27 Intake & Output 05/06/25 05/07/25 05/07/25 18:59 06:59 18:59 Intake Total 700 20 Balance 700 20 Weight 66.1 kg Intake: IV 20 20 Invasive Line 3 20 20 Oral 680 Other: Voiding Method Toilet Toilet # Voids 2 1 - Constitutional General appearance: Present: cooperative, no acute distress, thin - EENT Eyes: Present: anicteric sclerae, EOMI ENT: Present: hearing grossly normal - Respiratory Respiratory: bilateral: rhonchi (scattered) - Cardiovascular Rhythm: regular - Peripheral edema leg Peripheral Edema: bilateral: None - Neurologic Neurologic: Present: CNII-XII intact - Musculoskeletal Musculoskeletal: Present: generalized weakness - Psychiatric Psychiatric: Present: A&O x's 3, appropriate affect, intact judgment & insight - Labs CBC & Chem 7: 05/07/25 06:55 05/07/25 06:55 Labs: Abnormal Lab Results - Last 24 Hours (Table) 05/07/25 05/07/25 Range/Units 06:55 06:55 RBC 3.62 L (4.10-5.20) 10*6/uL MCV 104.7 H (80.0-97.0) fL MCH 35.6 H (27.0-32.0) pg Immature Gran # 0.13 H (0.00-0.04) 10*3/uL Neutrophils # 8.61 H (1.80-7.70) 10*3/uL Lymphocytes # 0.24 L (0.90-5.00) 10*3/uL Eosinophils # 0.00 L (0.04-0.35) 10*3/uL Sodium 135 L (137-145) mmol/L BUN 34 H (7-17) mg/dL Glucose 119 H (74-99) mg/dL - Imaging and Cardiology Chest x-ray: report reviewed Assessment and Plan (1) Congestive heart failure Current Visit: Yes Status: Suspected Priority: Medium Code(s): I50.9 - HEART FAILURE, UNSPECIFIED SNOMED Code(s): 96251686 (2) Esophageal adenocarcinoma Current Visit: No Status: Chronic Priority: Medium Code(s): C15.9 - MALIGNANT NEOPLASM OF ESOPHAGUS, UNSPECIFIED SNOMED Code(s): 168334153 (3) Thrush Current Visit: Yes Status: Acute Priority: Medium Code(s): B37.0 - CANDIDAL STOMATITIS SNOMED Code(s): 47386255 Plan: Pneumonitis vs CHF -Consensus among MDs is that resp symptoms felt to be more consistent with penumonits based on imaging, no improvements in resp states post lasix. Solumedrol initiated, pt resp status improved slowly. Solumedrol tapered and pt was transitioned to oral steroids today. Rx sent to [facility] for anxiety caused by steroids per pt, is working very well. She will use xanax that is prescribed to her at home -Pt was in a-fib last night. Cardiology evaluated pt, she is on eliquis, BB modified. -Per pt request, have changed her to a regular diet Esophageal carcinoma -Diagnostic and therapeutic circumstances as described in consult. -Patient is to start her new regimen-taxotere/cyramza. This will be delayed as appropriate, until her acute condition is adequately treated. Poor oral intake -Continued slow improvements Oral thrush -Nystatin suspension cont, improved Intermittent confusion-none reported today -Added lidoderm for non-narcotic pain control -Brain CT without contrast, neg Pt is ok from Hem/Onc to be discharged once she is cleared by IM and consulting MDs
--- NOTE | 2025-05-07 14:19 | P.PN ---
Subjective Progress Note Date: 05/07/25 H&P Date: 05/01/25 Chief Complaint: Progressive shortness of breath This is a 69-year-old female with past medical history significant for metastatic esophageal cancer on Enhurtu chemo with serial echos every 6-8, recently discontinued related to adverse effects of CHF ,and reports she is scheduled to start a new chemo on Sunday at [place]. Reports yesterday she developed progressive shortness of breath and presented to the ED. on admission patient was in the low 90s on room air, tachypnic. Currently requiring 4 L nasal cannula to maintain O2 sats in the mid 90s. Afebrile, normal WBC. Denies chest pain, palpitations. Troponins 1.270, 0.810, 0.677. Heparin drip initiated in the ER. Lactic acid 3.2, 2.4, 2.9.. Hemoglobin 14.1, platelets 110. D-dimer 1.91,Chest CTA reported no acute PE, diffuse groundglass opacities, COPD, new posterior retrocrural and lower paraesophageal masses, some enlarged lymphadenopathy within the mediastinum. T. bili 1.7, AST 140, ALT 48, alk phos 238. proBNP 7310. Viral studies negative.Chest x-ray reported prominent pulmonary vasculature, diffuse increased lung markings present bi laterally, heart size normal. Blood pressures soft. May 02, 2025: Cesario is reevaluated for acute hypoxic respiratory failure. Initially thought to be due to CHF possibly from her medication for chemotherapy for her metastatic esophageal carcinoma. She is currently on spironolactone and IV Lasix. Has abnormal troponins consistent with NSTEMI. Vital signs show she is afebrile heart rate is normal pulse oximetry is 92% on 8 L of O2 via nasal cannula. Laboratory studies show no white count she is macrocytic. Plasma lactic acid have been elevated. Her beta natruretic peptide was 7310. Urin alysis showed large leukocytes and was cloudy with occasional bacteria and cyst. COVID flu and RSV are negative. Cardiogram shows LV EF 60% with no motion abnormalities. Consults from oncology and pulmonology were reviewed today. 05/04/2025 continues on nebulized bronchodilators, Symbicort, IV steroids, Ativan ,oral Lasix. Maintaining O2 sats in the low 90s on 8 L high flow nasal cannula. Reports she is breathing easier. Blood sugars controlled. afebrile. Diet intake slowly improving. Renal function stable. 05/05/2025 chronic pain, declined pain patch or stronger oral medications such as Percocet; reports pain is currently controlled on regimen of [place] with Ativan for anxiety. Awaiting shower. PT pending. Maintaining O2 sats in the low 90s on 8 L nasal cannula. 05/06/2025 oxygen titrated down to 6 L nasal cannula, maintaining O2 sats in the low 90s.didnot sleep well last night. Ambulating in room, tolerated exertion well. Requesting regular diet. Pain controlled. 05/07/2025 During the night patient developed atrial fibrillation with RVR, received additional beta-poornima, Eliquis initiated. Spontaneously converted to sinus rhythm this morning. Oxygen has been titrated down to 2 L nasal cannula maintaining O2 sats of 90%. Chest x-ray pending. Denies chest pain, palp itations or increased shortness of breath. Objective - Vital Signs Vital signs: Vital Signs Temp 97.6 F 05/07/25 08:12 Pulse 80 05/07/25 08:16 Resp 16 05/07/25 08:12 BP 125/79 05/07/25 08:12 Pulse Ox 90 L 05/07/25 08:32 FiO2 40 05/01/25 19:27 Intake & Output 05/06/25 05/07/25 05/07/25 18:59 06:59 18:59 Intake Total 700 20 Balance 700 20 Weight 66.1 kg Intake: IV 20 20 Invasive Line 3 20 20 Oral 680 Other: Voiding Method Toilet Toilet # Voids 2 1 - Exam GENERAL: Fatigued,Alert and oriented ,sitting up in bed, NAD HEAD: Atraumatic, normocephalic. NECK: Supple, no JVD LUNGS: Unlabored, equal air entry, coarse bibasilar crackles. HEART: S1 S2. Regular rate and rhythm. ABDOMEN: Soft, nondistended, nontender,no guarding. Positive bowel sounds EXTREMITIES:no edema. No clubbing or cyanosis. Peripheral pulses intact. NEUROLOGICAL: Cranial nerves II through XII grossly intact. No focal deficits. SKIN: Warm, Dry, no rashes noted. - Labs CBC & Chem 7: 05/07/25 06:55 05/07/25 06:55 Labs: Abnormal Lab Results - Last 24 Hours (Table) 05/07/25 0612 Range/Units 06:55 06:55 RBC 3.62 L (4.10-5.20) 10*6/uL MCV 104.7 H (80.0-97.0) fL MCH 35.6 H (27.0-32.0) pg Immature Gran # 0.13 H (0.00-0.04) 10*3/uL Neutrophils # 8.61 H (1.80-7.70) 10*3/uL Lymphocytes # 0.24 L (0.90-5.00) 10*3/uL Eosinophils # 0.00 L (0.04-0.35) 10*3/uL Sodium 135 L (137-145) mmol/L BUN 34 H (7-17) mg/dL Glucose 119 H (74-99) mg/dL Assessment and Plan Assessment: Diffuse bilateral interstitial, groundglass pulmonary opacities, suspect [id number] ,pneumonitis. New onset paroxysmal atrial fibrillation, currently sinus rhythm Metastatic esophageal cancer, Enhertu chemo recently discontinued and reports she is scheduled to start a new chemo on Sunday. Acute CHF exacerbation, diastolic dysfunction, EF 55 to 60%, ruled out as per cardiology and pulmonary. New posterior retrocrural and lower paraesophageal masses, some enlarged lymphadenopathy within the mediastinum reported per CTA Acute hypoxic respiratory failure secondary to the above Elevated troponins, trending down, possibly type II NSTEMI secondary to the above. Lactic acidosis Asthma, COPD chronic, secondary to the above, stable History of ovarian cancer status post resection and chemotherapy Former nicotine dependence Hypothyroidism Hypertension .....and multiple other medical issues. Plan: Continue on current medication regimen ,monitoring and symptomatic treatment. Evaluated by cardiology, beta-poornima increased, continues on Eliquis for anticoagulation. Maintain telemetry. Pain management.continue aggressive pulmonary toileting, nebulized bronchodilators,steroids, diuretics. Continue titrating O2 to maintain O2 sat greater than or equal to 90%. Increase ambulation as tolerated. PT .prognosis guarded given multiple complex medical issues. Discharge planning in progress pending final DC recommendations and clearance per pulmonary and oncology. Cardiology has signed off. The impression and plan of care has been dictated as directed. : I performed a history and examination of this patient, discussed the same with the dictator. I agree with the dictator's note ,documented as a scribe. Any additional findings or plans will be noted.
--- NOTE | 2025-05-07 14:46 | P.PN ---
Subjective Progress Note Date: 05/07/25 Principal diagnosis: Acute hypoxic respiratory failure with acute pneumonitis, likely medication induced. On 05/02/2025, the patient is being seen in consult regarding acute hypoxic respiratory failure and development of diffuse bilateral pulmonary infiltrates. 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 The patient was started on palliative chemotherapy with FOLFOX and Herceptin completing 9 cycles. Due to intolerance, her regimen was changed to Herceptin and 5FU infusion only. The patient was subsequently changed to Enhertu on progression. She was on the same till about 03/20, at which time she developed progressive shortness of breath. She had CT scans of the chest done in the [facility], most recently in 03/20, that were concerning for pneumonitis, showing bilateral infiltrative changes and groundglass opacities, more prominent in the lung apices. As this is a known side effect of her regimen, that was discontinued, and the patient was placed on steroids. She completed her steroid taper in late 04/19, with improvement in her respiratory complaintsThe patient's subsequent imaging had shown evidence of pro gression, and the plan was to change her to Taxol and Cyramza, with cycle 1 scheduled to be given next week. The patient came into the emergency department having worsening shortness of breath. She is currently on oxygen and 8 L/min nasal cannula. The blood work showed a WBC count of 7.8 with hemoglobin 12.8 and platelet count 117. BUN is 26 pg 0.8. Lactic acid level was at 2.8 at 1.5. Sodium is 137 and potassium is at 3.1. LFTs are mildly elevated and the patient's proBNP level was 7310. Troponins were 1.2 and 0.80.6 respectively x 3. No history of any cardiac disease. The patient had an echocardiogram done on 05/01/2025 and the patient was found to have a normal left-ventricular ejection fraction with hyperdynamic LV without any significant valvular abnormalities. CT of the chest was also done and the patient was found to have no evidence of any filling defects to indicate pulmonary embolism. There is also mediastinal lymphadenopathy largest in the pretracheal space and at the level of ashlyn. There is also thickening of the retrocrural region extending posterior to the aorta and an area measuring 3.2 x 0.8 cm in size and soft tissue density anterior to the aorta and posterior to the esophagus measuring 3.2 cm in size, consistent with metastatic disease. However, there is diffuse patchy groundglass pulm infiltrates throughout the lung pearl bilaterally and some b ackground COPD. The patient is a former smoker. The patient is started on IV heparin. The patient is also on IV Lasix. She is producing good urine output while being on Lasix 40 mg every 12 hours. Nevertheless, oxygenation remains unchanged. On 05/03/2025, the patient is being seen for a follow-up. The patient is feeling slightly better compared to yesterday. The patient was started on IV Solu- Medrol. Echocardiogram was normal. Has not responded to diuresis and the patient has been switched to oral Lasix 40 mg p.o. daily. Approximately 3.2 with a hemoglobin of 13 and a platelet count of 121. Normal renal function. Normal electrolytes. No other new complaints. She was complaining of back pain and x-ray of the thoracic spine showed wedge fracture of T8 and T11 and those are essentially chronic. She remains on oxygen and she is still on 8 L of O2 nasal cannula. Repeat chest x-ray shows no significant interval change with diffuse bilateral pulmonary filtrates. The patient is seen today May 04, 2025 in follow-up on the regular medical floor. She is currently resting in bed. Awake and alert in no acute distress. She is still requiring 8 L high flow nasal cannula to maintain O2 saturations in the 90s. Sodium 139. Potassium 3.5. Bicarb 26. BUN 30. Creatinine 0.87. Glucose 150. She remains on DuoNeb inhalations, Symbicort, Solu-Medrol. Remains on oral diuretics. The patient is seen today May 05, 2025 in follow-up on the selective care unit. She is awake and alert in no acute distress. Sitting up in bed. Currently requiring 8 L high flow nasal cannula. She remains on DuoNeb inhalations, Symbicort, Solu-Medrol. Remains on oral diuretics. No new labs today. The patient is seen today May 06, 2025 in follow-up on the selective care unit. She is currently resting in bed. Awake and alert in no acute distress. Maintaining good O2 saturations in the 90s on 4 L/min per nasal cannula. She is afebrile. Hemodynamically stable. CT scan of the brain revealed no acute intracranial process. No new labs today. She remains on DuoNeb inhalations, S ymbicort, Solu-Medrol. Remains on oral diuretics. Patient was seen today on 05/07/2025, clinically feeling better, she is down to 2 L nasal cannula with O2 saturation in the low 90s. Feeling better breathing easier, however last night patient went into atrial fibrillation with RVR and she is now being seen by cardiology for her A-fib. The recommendation is continue Eliquis, added metoprolol 25 twice daily and continue telemetry. No other recommendations were made by cardiology chest x-ray is not showing significant improvement although clinically the patient is feeling better, and her O2 saturation is improving steadily. Remains on steroids for her medication induced pneumonitis. Objective - Vital Signs Vital signs: Vital Signs Temp 97.6 F 05/07/25 08:12 Pulse 85 05/07/25 11:57 Resp 16 05/07/25 11:57 BP 130/84 05/07/25 11:57 Pulse Ox 92 L 05/07/25 11:57 FiO2 40 05/01/25 19:27 Intake & Output 05/06/25 05/07/25 05/07/25 18:59 06:59 18:59 Intake Total 700 20 Balance 700 20 Weight 66.1 kg Intake: IV 20 20 Invasive Line 3 20 20 Oral 680 Other: Voiding Method Toilet Toilet # Voids 2 1 - Exam GENERAL EXAM: Revealed 69-year-old female in no distress on 2 L nasal cannula HEAD: Normocephalic. EYES: Normal reaction of pupils, equal size. NOSE: Clear with pink turbinates. THROAT: No erythema or exudates. NECK: No masses, no JVD. CHEST: No chest wall deformity. LUNGS: Equal air entry with coarse crackles in the bilateral bases. CVS: S1 and S2 normal with no audible murmur, regular rhythm. ABDOMEN: No hepatosplenomegaly, normal bowel sounds, no guarding or rigidity. SKIN: No rashes CENTRAL NERVOUS SYSTEM: Alert oriented x 3 no gross focal deficit EXTREMITIES: No clubbing edema or cyanosis - Labs CBC & Chem 7: 05/07/25 06:55 05/07/25 06:55 Labs: Abnormal Lab Results - Last 24 Hours (Table) 05/07/25 05/07/25 Range/Units 06:55 06:55 RBC 3.62 L (4.10-5.20) 10*6/uL MCV 104.7 H (80.0-97.0) fL MCH 35.6 H (27.0-32.0) pg Immature Gran # 0.13 H (0.00-0.04) 10*3/uL Neutrophils # 8.61 H (1.80-7.70) 10*3/uL Lymphocytes # 0.24 L (0.90-5.00) 10*3/uL Eosinophils # 0.00 L (0.04-0.35) 10*3/uL Sodium 135 L (137-145) mmol/L BUN 34 H (7-17) mg/dL Glucose 119 H (74-99) mg/dL Assessment and Plan Assessment: Impression: Acute hypoxic respiratory failure, currently on 4 L of oxygen by nasal cannula. The patient developed diffuse bilateral interstitial and groundglass pulm infiltrates with areas of consolidation very much consistent with drug-induced pneumonitis. Suspect Enhertu related pneumonitis. ENHERTU can cause interstitial lung disease (ILD) and pneumonitis, which can be serious, life- threatening, or even fatal. In a pooled analysis of studies, ILD/pneumonitis occurred in 15.4% of patients treated with ENHERTU. CT scan from April 09, 2025 from [facility] revealed interval increase groundglass and reticular opacities in the upper to mid lung zones representing drug reaction or organizing pneumonia Acute shortness of breath secondary to above Metastatic esophageal cancer with development of esophageal and mediastinal lymphadenopathy COPD Acute NSTEMI, troponins are downtrending and the patient is currently on IV heparin. Echocardiogram shows a preserved LV function. History of ovarian cancer Chronic anxiety Chronic back pain Hypertension Hyperlipidemia Former smoker Recommendation: Continue present supportive care measures Continue prednisone and needs to be continued outpatient basis Arrange for home O2 most likely he will need anywhere between 2 to 4 L via nasal cannula presently is on 2 L Continue bronchodilators including DuoNeb and Symbicort Continue diuretics Continue beta-blockers for her atrial fibrillation as recommended by cardiology and continue Eliquis Consider discharge planning if cleared by other consultants and should she should follow-up with Dr. Fragoso. Time with Patient: Less than 30
[2025-05-07] MEDS: ACETAMINOPHEN TAB 325 MG TAB PO PRN (20:13)
[2025-05-08] MEDS: METOPROLOL TARTRATE 12.5 MG TAB PO SCH (08:41)
[2025-05-08 11:35] VITALS: BMI 25.1
--- NOTE | 2025-05-08 12:57 | P.DS ---
Providers Date of admission: 05/01/25 11:54 Expected date of discharge: 05/08/25 Attending physician: Ari Duke Consults: 05/01/25 11:54 Consult Physician Routine Consulting Provider: Rusty Patterson Consult Reason/Comments: Oncological care Do you want consulting provider notified?: Yes 05/01/25 16:32 Consult Physician Routine Consulting Provider: Aime Aleman Consult Reason/Comments: Acute hypoxic respiratory failure, esoph.cancer, new paraesophageal masses Do you want consulting provider notified?: Yes Primary care physician: [facility] Course: Final Diagnoses: Diffuse bilateral interstitial, groundglass pulmonary opacities, suspect [id number] ,pneumonitis. New onset paroxysmal atrial fibrillation, currently sinus rhythm Metastatic esophageal cancer, Enhertu chemo recently discontinued and reports she is scheduled to start a new chemo on Sunday. Acute CHF exacerbation, diastolic dysfunction, EF 55 to 60%, ruled out as per cardiology and pulmonary. New posterior retrocrural and lower paraesophageal masses, some enlarged lymphadenopathy within the mediastinum reported per CTA Acute hypoxic respiratory failure secondary to the above Elevated troponins, trending down, possibly type II NSTEMI secondary to the above. Lactic acidosis Asthma, COPD chronic, secondary to the above, stable History of ovarian cancer status post resection and chemotherapy Former nicotine dependence Hypothyroidism Hypertension .....and multiple other medical issues. Hospital course:This is a 69-year-old female with past medical history significant for metastatic esophageal cancer on Enhurtu chemo with serial echos every 6-8, recently discontinued related to adverse effects of CHF ,and reports she is scheduled to start a new chemo on Sunday at [place]. Reports yesterday she developed progressive shortness of breath and presented to the ED. on admission patient was in the low 90s on room air, tachypnic. Currently requiring 4 L nasal cannula to maintain O2 sats in the mid 90s. Afebrile, normal WBC. Denies chest pain, palpitations. Troponins 1.270, 0.810, 0.677. Heparin drip initiated in the ER. Lactic acid 3.2, 2.4, 2.9.. Hemoglobin 14.1, platelets 110. D-dimer 1.91,Chest CTA reported no acute PE, diffuse groundglass opacities, COPD, new posterior retrocrural and lower paraesophageal masses, some enlarged lymphadenopathy within the mediastinum. T. bili 1.7, AST 140, ALT 48, alk phos 238. proBNP 7310. Viral studies negative.Chest x-ray reported prominent pulmonary vasculature, diffuse increased lung markings present bilaterally, heart size normal. Blood pressures soft. May 02, 2025: Cesario is reevaluated for acute hypoxic respiratory failure. Initially thought to be due to CHF possibly from her medication for chemotherapy for her metastatic esophageal carcinoma. She is currently on spironolactone and IV Lasix. Has abnormal troponins consistent with NSTEMI. Vital signs show she is afebrile heart rate is normal pulse oximetry is 92% on 8 L of O2 via nasal cannula. Laboratory studies show no white count she is macrocytic. Plasma lactic acid have been elevated. Her beta natruretic peptide was 7310. Urinalysis showed large leukocytes and was cloudy with occasional bacteria and cyst. COVID flu and RSV are negative. Cardiogram shows LV EF 60% with no motion abnormalities. Consults from oncology and pulmonology were reviewed today. 05/04/2025 continues on nebulized bronchodilators, Symbicort, IV steroids, Ativan ,oral Lasix. Maintaining O2 sats in the low 90s on 8 L high flow nasal cannula. Reports she is breathing easier. Blood sugars controlled. afebrile. Diet intake slowly improving. Renal function stable. 05/05/2025 chronic pain, declined pain patch or stronger oral medications such as Percocet; reports pain is currently controlled on regimen of [place] with Ativan for anxiety. Awaiting shower. PT pending. Maintaining O2 sats in the low 90s on 8 L nasal cannula. 05/06/2025 oxygen titrated down to 6 L nasal cannula, maintaining O2 sats in the low 90s.didnot sleep well last night. Ambulating in room, tolerated exertion well. Requesting regular diet. Pain controlled. 05/07/2025 During the night patient developed atrial fibrillation with RVR, received additional beta-poornima, Eliquis initiated. Spontaneously converted to sinus rhythm this morning. Oxygen has been titrated down to 2 L nasal cannula maintaining O2 sats of 90%. Chest x-ray pending. Denies chest pain, palpitati ons or increased shortness of breath. Continue on current medication regimen ,monitoring and symptomatic treatment. Evaluated by cardiology, beta-poornima increased, continues on Eliquis for anticoagulation. Maintain telemetry. Pain management.continue aggressive pulmonary toileting, nebulized bronchodilators,steroids, diuretics. Continue titrating O2 to maintain O2 sat greater than or equal to 90%. Increase ambulation as tolerated. PT .prognosis guarded given multiple complex medical issues. Discharge planning in progress pending final DC recommendations and clearance per pulmonary and oncology. Cardiology has signed off. Patient complained of mild dizziness earlier this morning when ambulating within room with heart rates in the 50s , beta-poornima dose decreased . Denies chest pain, palpitations or increase in shortness of breath. Maintaining O2 sats in the 90s on 2 L nasal cannula. Currently denies lightheadedness, dizziness or focal deficits. Patient will be discharged home today in stable condition with guarded prognosis. Patient Condition at Discharge: Stable Plan - Discharge Summary Discharge Rx Participant: Yes New Discharge Prescriptions: New predniSONE [Deltasone] 70 mg PO DIRECTED #98 tab Ipratropium-Albuterol Nebulize [Duoneb 0.5 mg-3 mg/3 ml Soln] 3 ml INHALATION RT-QID #120 each Apixaban [Eliquis] 5 mg PO BID #60 tab Lidocaine 4% Patch 1 patch TOPICAL DAILY #30 patch Nystatin 100,000 Unit/ml Susp [Mycostatin Oral Susp] 500,000 unit PO QID ml Metoprolol Tartrate [Lopressor] 12.5 mg PO BID #60 tab HYDROcodone/APAP 10-325MG [[place] 10-325] 1 each PO Q6HR PRN #12 tab PRN Reason: Moderate Pain (Scale 4 To 6) Continue Omeprazole 20 mg PO DAILY Levothyroxine Sodium [Synthroid] 88 mcg PO DAILY@0600 ALPRAZolam [Xanax] 0.25 mg PO BID PRN PRN Reason: Anxiety Pravastatin Sodium 80 mg PO HS Magnesium Oxide [Mag-Ox] 400 mg PO DAILY Mirtazapine [Remeron] 15 mg PO HS Fluticasone Propion/Salmeterol [Advair 250-50 Diskus] 1 puff INHALATION RT- BID Potassium Chloride ER [K-Dur 20] 20 meq PO DAILY Changed Furosemide [Lasix] 40 mg PO DAILY #0 Discontinued Losartan [Cozaar] 25 mg PO DAILY Discharge Medication List Levothyroxine Sodium [Synthroid] 88 mcg PO DAILY@0600 08/05/15 [History] Omeprazole 20 mg PO DAILY 06/30/15 [History] ALPRAZolam [Xanax] 0.25 mg PO BID PRN 07/31/17 [History] Pravastatin Sodium 80 mg PO HS 08/03/20 [History] Mirtazapine [Remeron] 15 mg PO HS 06/26/24 [History] Fluticasone Propion/Salmeterol [Advair 250-50 Diskus] 1 puff INHALATION RT-BID 05/01/25 [History] Magnesium Oxide [Mag-Ox] 400 mg PO DAILY 05/01/25 [History] Potassium Chloride ER [K-Dur 20] 20 meq PO DAILY 05/01/25 [History] predniSONE [Deltasone] 70 mg PO DIRECTED #98 tab 05/07/25 [Rx] Apixaban [Eliquis] 5 mg PO BID #60 tab 05/08/25 [Rx] Furosemide [Lasix] 40 mg PO DAILY #0 05/08/25 [Rx] HYDROcodone/APAP 10-325MG [[place] 10-325] 1 each PO Q6HR PRN #12 tab 05/08/25 [Rx] Ipratropium-Albuterol Nebulize [Duoneb 0.5 mg-3 mg/3 ml Soln] 3 ml INHALATION RT-QID #120 each 05/08/25 [Rx] Lidocaine 4% Patch 1 patch TOPICAL DAILY #30 patch 05/08/25 [Rx] Metoprolol Tartrate [Lopressor] 12.5 mg PO BID #60 tab 05/08/25 [Rx] Nystatin 100,000 Unit/ml Susp [Mycostatin Oral Susp] 500,000 unit PO QID ml 05/08/25 [Rx] Follow up Appointment(s)/Referral(s): Caleb Fisher Jr, DO [Primary Care Provider] - 1-2 days [facility] [NON-STAFF] - Aime Aleman MD [STAFF PHYSICIAN] - 1 Week Rusty Patterson MD [STAFF PHYSICIAN] - 05/25/25 9:15 am (this is appt with Dr. Patterson. RN will get a hold of patient about chemo appt. ) Activity/Diet/Wound Care/Special Instructions: O2 2 L nasal cannula; patient also requesting portable unit
--- NOTE | 2025-05-08 15:16 | P.PN ---
Subjective Progress Note Date: 05/08/25 Principal diagnosis: Acute hypoxic respiratory failure with acute pneumonitis, likely medication induced. On 05/02/2025, the patient is being seen in consult regarding acute hypoxic respiratory failure and development of diffuse bilateral pulmonary infiltrates. 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 The patient was started on palliative chemotherapy with FOLFOX and Herceptin completing 9 cycles. Due to intolerance, her regimen was changed to Herceptin and 5FU infusion only. The patient was subsequently changed to Enhertu on progression. She was on the same till about 03/20, at which time she developed progressive shortness of breath. She had CT scans of the chest done in the [facility], most recently in 03/20, that were concerning for pneumonitis, showing bilateral infiltrative changes and groundglass opacities, more prominent in the lung apices. As this is a known side effect of her regimen, that was discontinued, and the patient was placed on steroids. She completed her steroid taper in late 04/19, with improvement in her respiratory complaintsThe patient's subsequent imaging had shown evidence of pro gression, and the plan was to change her to Taxol and Cyramza, with cycle 1 scheduled to be given next week. The patient came into the emergency department having worsening shortness of breath. She is currently on oxygen and 8 L/min nasal cannula. The blood work showed a WBC count of 7.8 with hemoglobin 12.8 and platelet count 117. BUN is 26 pg 0.8. Lactic acid level was at 2.8 at 1.5. Sodium is 137 and potassium is at 3.1. LFTs are mildly elevated and the patient's proBNP level was 7310. Troponins were 1.2 and 0.80.6 respectively x 3. No history of any cardiac disease. The patient had an echocardiogram done on 05/01/2025 and the patient was found to have a normal left-ventricular ejection fraction with hyperdynamic LV without any significant valvular abnormalities. CT of the chest was also done and the patient was found to have no evidence of any filling defects to indicate pulmonary embolism. There is also mediastinal lymphadenopathy largest in the pretracheal space and at the level of ashlyn. There is also thickening of the retrocrural region extending posterior to the aorta and an area measuring 3.2 x 0.8 cm in size and soft tissue density anterior to the aorta and posterior to the esophagus measuring 3.2 cm in size, consistent with metastatic disease. However, there is diffuse patchy groundglass pulm infiltrates throughout the lung pearl bilaterally and some b ackground COPD. The patient is a former smoker. The patient is started on IV heparin. The patient is also on IV Lasix. She is producing good urine output while being on Lasix 40 mg every 12 hours. Nevertheless, oxygenation remains unchanged. On 05/03/2025, the patient is being seen for a follow-up. The patient is feeling slightly better compared to yesterday. The patient was started on IV Solu- Medrol. Echocardiogram was normal. Has not responded to diuresis and the patient has been switched to oral Lasix 40 mg p.o. daily. Approximately 3.2 with a hemoglobin of 13 and a platelet count of 121. Normal renal function. Normal electrolytes. No other new complaints. She was complaining of back pain and x-ray of the thoracic spine showed wedge fracture of T8 and T11 and those are essentially chronic. She remains on oxygen and she is still on 8 L of O2 nasal cannula. Repeat chest x-ray shows no significant interval change with diffuse bilateral pulmonary filtrates. The patient is seen today May 04, 2025 in follow-up on the regular medical floor. She is currently resting in bed. Awake and alert in no acute distress. She is still requiring 8 L high flow nasal cannula to maintain O2 saturations in the 90s. Sodium 139. Potassium 3.5. Bicarb 26. BUN 30. Creatinine 0.87. Glucose 150. She remains on DuoNeb inhalations, Symbicort, Solu-Medrol. Remains on oral diuretics. The patient is seen today May 05, 2025 in follow-up on the selective care unit. She is awake and alert in no acute distress. Sitting up in bed. Currently requiring 8 L high flow nasal cannula. She remains on DuoNeb inhalations, Symbicort, Solu-Medrol. Remains on oral diuretics. No new labs today. The patient is seen today May 06, 2025 in follow-up on the selective care unit. She is currently resting in bed. Awake and alert in no acute distress. Maintaining good O2 saturations in the 90s on 4 L/min per nasal cannula. She is afebrile. Hemodynamically stable. CT scan of the brain revealed no acute intracranial process. No new labs today. She remains on DuoNeb inhalations, S ymbicort, Solu-Medrol. Remains on oral diuretics. Patient was seen today on 05/07/2025, clinically feeling better, she is down to 2 L nasal cannula with O2 saturation in the low 90s. Feeling better breathing easier, however last night patient went into atrial fibrillation with RVR and she is now being seen by cardiology for her A-fib. The recommendation is continue Eliquis, added metoprolol 25 twice daily and continue telemetry. No other recommendations were made by cardiology chest x-ray is not showing significant improvement although clinically the patient is feeling better, and her O2 saturation is improving steadily. Remains on steroids for her medication induced pneumonitis. Seen today on 05/08/2025, patient remains on 2 L nasal cannula, feeling better breathing easier, not in significant distress. Chest x-ray yesterday showed no significant change however clinically the patient has made a significant improvement chest x-ray continues to show multifocal airspace opacities. WBC count is 9.3 hemoglobin is 12.9 electrolytes are normal renal profile is normal bicarb is normal Objective - Vital Signs Vital signs: Vital Signs Temp 97.7 F 05/07/25 23:10 Pulse 61 05/08/25 13:47 Resp 19 05/08/25 13:47 BP 126/67 05/08/25 11:41 Pulse Ox 94 L 05/08/25 11:41 FiO2 40 05/01/25 19:27 Intake & Output 05/07/25 05/08/25 05/08/25 18:59 06:59 18:59 Intake Total 600 20 20 Balance 600 20 20 Weight 66.4 kg 66.4 kg Intake: IV 360 20 20 Invasive Line 3 20 20 Sodium Chloride 0.9% 1, 360 000 ml @ 40 mls/hr IV . Q24H JOHN Rx#:[id number] Oral 240 Other: Voiding Method Toilet Toilet # Voids 1 1 - Exam GENERAL EXAM: Revealed 69-year-old female in no distress on 2 L nasal cannula HEAD: Normocephalic. EYES: Normal reaction of pupils, equal size. NOSE: Clear with pink turbinates. THROAT: No erythema or exudates. NECK: No masses, no JVD. CHEST: No chest wall deformity. LUNGS: Equal air entry with coarse crackles in the bilateral bases. CVS: S1 and S2 normal with no audible murmur, regular rhythm. ABDOMEN: No hepatosplenomegaly, normal bowel sounds, no guarding or rigidity. SKIN: No rashes CENTRAL NERVOUS SYSTEM: Alert oriented x 3 no gross focal deficit EXTREMITIES: No clubbing edema or cyanosis - Labs CBC & Chem 7: 05/07/25 06:55 05/07/25 06:55 Assessment and Plan Assessment: Impression: Acute hypoxic respiratory failure, currently on 2 L of oxygen by nasal cannula. The patient developed diffuse bilateral interstitial and groundglass pulm infiltrates with areas of consolidation very much consistent with drug-induced pneumonitis. Suspect Enhertu related pneumonitis. ENHERTU can cause i nterstitial lung disease (ILD) and pneumonitis, which can be serious, life- threatening, or even fatal. In a pooled analysis of studies, ILD/pneumonitis occurred in 15.4% of patients treated with ENHERTU. CT scan from April 09, 2025 from [facility] revealed interval increase groundglass and reticular opacities in the upper to mid lung zones representing drug reaction or organizing pneumonia Acute shortness of breath secondary to above Metastatic esophageal cancer with development of esophageal and mediastinal lymphadenopathy COPD Acute NSTEMI, troponins are downtrending and the patient is currently on IV heparin. Echocardiogram shows a preserved LV function. History of ovarian cancer Chronic anxiety Chronic back pain Hypertension Hyperlipidemia Former smoker Recommendation: Continue present supportive care measures Continue prednisone on outpatient basis and this will be tapered bilateral arterial after follow-up with him in the next 2 to 3 weeks Continue diuretics Continue beta-blockers for her atrial fibrillation as recommended by cardiology and continue Eliquis Will clear for discharge and again patient should have follow-up with Dr. Fragoso. Time with Patient: Less than 30
[2025-05-09] MEDS ORDERED: FLUTICASONE NASAL 50MCG/SPRAY 16GM BTL EA NOSTRIL PRN (07:58)
[2025-05-09] MEDS: SODIUM CHLORIDE 0.65% NASAL SPRAY 44 ML BTL NASAL PRN (11:08)
--- NOTE | 2025-05-09 13:37 | P.PN ---
Subjective Progress Note Date: 05/09/25 Principal diagnosis: Acute hypoxic respiratory failure with acute pneumonitis, likely medication induced. On 05/02/2025, the patient is being seen in consult regarding acute hypoxic respiratory failure and development of diffuse bilateral pulmonary infiltrates. 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 The patient was started on palliative chemotherapy with FOLFOX and Herceptin completing 9 cycles. Due to intolerance, her regimen was changed to Herceptin and 5FU infusion only. The patient was subsequently changed to Enhertu on progression. She was on the same till about 03/20, at which time she developed progressive shortness of breath. She had CT scans of the chest done in the [facility], most recently in 03/20, that were concerning for pneumonitis, showing bilateral infiltrative changes and groundglass opacities, more prominent in the lung apices. As this is a known side effect of her regimen, that was discontinued, and the patient was placed on steroids. She completed her steroid taper in late 04/19, with improvement in her respiratory complaintsThe patient's subsequent imaging had shown evidence of pro gression, and the plan was to change her to Taxol and Cyramza, with cycle 1 scheduled to be given next week. The patient came into the emergency department having worsening shortness of breath. She is currently on oxygen and 8 L/min nasal cannula. The blood work showed a WBC count of 7.8 with hemoglobin 12.8 and platelet count 117. BUN is 26 pg 0.8. Lactic acid level was at 2.8 at 1.5. Sodium is 137 and potassium is at 3.1. LFTs are mildly elevated and the patient's proBNP level was 7310. Troponins were 1.2 and 0.80.6 respectively x 3. No history of any cardiac disease. The patient had an echocardiogram done on 05/01/2025 and the patient was found to have a normal left-ventricular ejection fraction with hyperdynamic LV without any significant valvular abnormalities. CT of the chest was also done and the patient was found to have no evidence of any filling defects to indicate pulmonary embolism. There is also mediastinal lymphadenopathy largest in the pretracheal space and at the level of ashlyn. There is also thickening of the retrocrural region extending posterior to the aorta and an area measuring 3.2 x 0.8 cm in size and soft tissue density anterior to the aorta and posterior to the esophagus measuring 3.2 cm in size, consistent with metastatic disease. However, there is diffuse patchy groundglass pulm infiltrates throughout the lung pearl bilaterally and some b ackground COPD. The patient is a former smoker. The patient is started on IV heparin. The patient is also on IV Lasix. She is producing good urine output while being on Lasix 40 mg every 12 hours. Nevertheless, oxygenation remains unchanged. On 05/03/2025, the patient is being seen for a follow-up. The patient is feeling slightly better compared to yesterday. The patient was started on IV Solu- Medrol. Echocardiogram was normal. Has not responded to diuresis and the patient has been switched to oral Lasix 40 mg p.o. daily. Approximately 3.2 with a hemoglobin of 13 and a platelet count of 121. Normal renal function. Normal electrolytes. No other new complaints. She was complaining of back pain and x-ray of the thoracic spine showed wedge fracture of T8 and T11 and those are essentially chronic. She remains on oxygen and she is still on 8 L of O2 nasal cannula. Repeat chest x-ray shows no significant interval change with diffuse bilateral pulmonary filtrates. The patient is seen today May 04, 2025 in follow-up on the regular medical floor. She is currently resting in bed. Awake and alert in no acute distress. She is still requiring 8 L high flow nasal cannula to maintain O2 saturations in the 90s. Sodium 139. Potassium 3.5. Bicarb 26. BUN 30. Creatinine 0.87. Glucose 150. She remains on DuoNeb inhalations, Symbicort, Solu-Medrol. Remains on oral diuretics. The patient is seen today May 05, 2025 in follow-up on the selective care unit. She is awake and alert in no acute distress. Sitting up in bed. Currently requiring 8 L high flow nasal cannula. She remains on DuoNeb inhalations, Symbicort, Solu-Medrol. Remains on oral diuretics. No new labs today. The patient is seen today May 06, 2025 in follow-up on the selective care unit. She is currently resting in bed. Awake and alert in no acute distress. Maintaining good O2 saturations in the 90s on 4 L/min per nasal cannula. She is afebrile. Hemodynamically stable. CT scan of the brain revealed no acute intracranial process. No new labs today. She remains on DuoNeb inhalations, S ymbicort, Solu-Medrol. Remains on oral diuretics. Patient was seen today on 05/07/2025, clinically feeling better, she is down to 2 L nasal cannula with O2 saturation in the low 90s. Feeling better breathing easier, however last night patient went into atrial fibrillation with RVR and she is now being seen by cardiology for her A-fib. The recommendation is continue Eliquis, added metoprolol 25 twice daily and continue telemetry. No other recommendations were made by cardiology chest x-ray is not showing significant improvement although clinically the patient is feeling better, and her O2 saturation is improving steadily. Remains on steroids for her medication induced pneumonitis. Seen today on 05/08/2025, patient remains on 2 L nasal cannula, feeling better breathing easier, not in significant distress. Chest x-ray yesterday showed no significant change however clinically the patient has made a significant improvement chest x-ray continues to show multifocal airspace opacities. WBC count is 9.3 hemoglobin is 12.9 electrolytes are normal renal profile is normal bicarb is normal Seen today on 05/09/2025 patient's discharge was delayed yesterday because her was admitted yesterday with acute myocardial infarction. The patient herself is doing well she is not in any distress remains on 3 L nasal cannula steadily improving. Objective - Vital Signs Vital signs: Vital Signs Temp 98 F 05/09/25 07:51 Pulse 68 05/09/25 12:16 Resp 18 05/09/25 12:05 BP 133/78 05/09/25 11:12 Pulse Ox 95 05/09/25 11:12 FiO2 40 05/01/25 19:27 Intake & Output 05/08/25 05/09/25 05/09/25 18:59 06:59 18:59 Intake Total 20 20 260 Balance 20 20 260 Weight 66.4 kg 65.1 kg Intake: IV 20 20 20 Invasive Line 3 20 20 20 Oral 240 Other: Voiding Method Toilet Toilet # Voids 1 7 - Exam GENERAL EXAM: Revealed 69-year-old female in no distress on 3 L nasal cannula HEAD: Normocephalic. EYES: Normal reaction of pupils, equal size. NOSE: Clear with pink turbinates. THROAT: No erythema or exudates. NECK: No masses, no JVD. CHEST: No chest wall deformity. LUNGS: Good breath sound bilaterally no crackles rhonchi or wheezes noted today. CVS: S1 and S2 normal with no audible murmur, regular rhythm. ABDOMEN: No hepatosplenomegaly, normal bowel sounds, no guarding or rigidity. SKIN: No rashes CENTRAL NERVOUS SYSTEM: Alert oriented x 3 no gross focal deficit EXTREMITIES: No clubbing edema or cyanosis - Labs CBC & Chem 7: 05/07/25 06:55 05/07/25 06:55 Assessment and Plan Assessment: Impression: Acute hypoxic respiratory failure, currently on 2 L of oxygen by nasal cannula. The patient developed diffuse bilateral interstitial and groundglass pulm infiltrates with areas of consolidation very much consistent with drug-induced pneumonitis. Suspect Enhertu related pneumonitis. ENHERTU can cause interstitial lung disease (ILD) and pneumonitis, which can be serious, life- threatening, or even fatal. In a pooled analysis of studies, ILD/pneumonitis occurred in 15.4% of patients treated with ENHERTU. CT scan from April 09, 2025 from [facility] revealed interval increase groundglass and reticular opacities in the upper to mid lung zones representing drug reaction or organizing pneumonia Acute shortness of breath secondary to above Metastatic esophageal cancer with development of esophageal and mediastinal lymphadenopathy COPD Acute NSTEMI, troponins are downtrending and the patient is currently on IV heparin. Echocardiogram shows a preserved LV function. History of ovarian cancer Chronic anxiety Chronic back pain Hypertension Hyperlipidemia Former smoker Recommendation: Cleared again for discharge on prednisone and on oxygen Continue present supportive care measures Continue diuretics Continue beta-blockers for her atrial fibrillation as recommended by cardiology and continue Eliquis Patient to follow-up with Dr. Fragoso on outpatient basis Time with Patient: Less than 30
[2025-05-09] MEDS: QUEtiapine 50 MG TAB PO PRN (19:33)
[2025-05-09] MEDS: ALPRAZolam 0.25 MG TAB PO PRN (21:38)
[2025-05-10 09:04] VITALS: RESP 18; TEMP 98.1
[2025-05-10 11:17] VITALS: BP 116/76
[2025-05-10 12:55] VITALS: PULSE 60
== END 2025-05-10 14:53 | disposition home or self-care (01) | DRG 280 ==
LOC: EC 08:20 → 3SCARD 11:54
PROVIDERS: ADMIT Family Medicine; ATTEND Family Medicine
DX: I11.0 Hypertensive heart disease with heart failure (principal); I50.33 Acute on chronic diastolic (congestive) heart failure; I21.A1 Myocardial infarction type 2; J96.01 Acute respiratory failure with hypoxia; S22.069A Unspecified fracture of T7-T8 vertebra, initial encounter for closed fracture; C15.5 Malignant neoplasm of lower third of esophagus; E87.20 Acidosis, unspecified; B37.0 Candidal stomatitis; J44.0 Chronic obstructive pulmonary disease with (acute) lower respiratory infection; E03.9 Hypothyroidism, unspecified; I48.0 Paroxysmal atrial fibrillation; Z11.52 Encounter for screening for COVID-19; J70.4 Drug-induced interstitial lung disorders, unspecified; T45.1X5A Adverse effect of antineoplastic and immunosuppressive drugs, initial encounter; R59.0 Localized enlarged lymph nodes; Z87.891 Personal history of nicotine dependence; Z85.43 Personal history of malignant neoplasm of ovary; Z85.01 Personal history of malignant neoplasm of esophagus; J98.4 Other disorders of lung; M54.9 Dorsalgia, unspecified; F41.8 Other specified anxiety disorders; G89.29 Other chronic pain; E78.5 Hyperlipidemia, unspecified; R63.0 Anorexia; X58.XXXA Exposure to other specified factors, initial encounter; Z79.01 Long term (current) use of anticoagulants; Z79.890 Hormone replacement therapy; Z79.899 Other long term (current) drug therapy; Z90.710 Acquired absence of both cervix and uterus; Z92.21 Personal history of antineoplastic chemotherapy; Z98.51 Tubal ligation status; Z90.49 Acquired absence of other specified parts of digestive tract
CPT/HCPCS: 36415; 70450; 71045; 71046; 71275; 72072; 80048; 80053; 81001; 83605; 83735; 83880; 84439; 84443; 84484; 85025; 85379; 85610; 85730; 87636; 93005; 93306; 94640; 94760; 96365; 96375; 99291

== ENCOUNTER 2025-06-05 16:06 | Inpatient (IN) | payer MEDICARE ==
[2025-06-05] MEDS ORDERED: RX INFO: IV CONTRAST WAS GIVEN 1 EACH MISC MISCELLANE PRN (16:24)
--- NOTE | 2025-06-05 16:36 | XR ---
EXAMINATION TYPE: XR chest 1V DATE OF EXAM: 06/05/2025 4:24 PM COMPARISON: Chest radiographs from 06/05/2025 TECHNIQUE: XR chest 1V Portable AP radiograph of the chest. CLINICAL INDICATION:Female, 69 years old with history of pneumo; FINDINGS: Lungs/Pleura: Previously questioned right trace pneumothorax is not appreciated on exam. No pleural e ffusion. Similar prominent interstitial lung markings. No focal consolidation. Left midlung calcified granuloma. Pulmonary vascularity: Unremarkable. Heart/mediastinum: Cardiomediastinal silhouette is unremarkable. Musculoskeletal: No acute osseous pathology. Other findings: Cholecystectomy clips in the right upper quadrant. Lines/Tubes: Right chest Mediport catheter distal tip at the mid SVC. IMPRESSION: 1. Previously questioned right trace apical pneumothorax is not definitively visualized. 2. Similar diffuse interstitial prominence concerning for an essential lung disease versus atypical pneumonia. [facility], , 06/05/2025 4:34 PM
[2025-06-05 17:07] LABS: Basophils # (A) 0.01 10*3/uL (0.00-0.10); Basophils % (A) 0.1 %; Eosinophils # (A) 0.00 10*3/uL (0.04-0.35); Eosinophils % (A) 0.0 %; HCT 44.2 % (37.2-46.3); HGB 15.7 g/dL (12.0-15.0); Lymphocytes # (A) 0.25 10*3/uL (0.90-5.00); Lymphocytes % (A) 2.6 %; MCH 36.2 pg (27.0-32.0); MCHC 35.5 g/dL (32.0-37.0); MCV 101.8 fL (80.0-97.0); Monocytes # (A) 0.07 10*3/uL (0.20-1.00); Monocytes % (A) 0.7 %; Neutrophils # (A) 9.31 10*3/uL (1.80-7.70); Neutrophils % (A) 96.1 %; RBC 4.34 10*6/uL (4.10-5.20); RDW 12.7 % (11.5-14.5); WBC 9.69 10*3/uL (4.50-10.00)
[2025-06-05] MEDS: ALBUTEROL NEBULIZED 2.5 MG/3 ML INHALATION STA (17:17)
[2025-06-05] MEDS: IPRATROPIUM-ALBUTEROL 3 ML NEB INHALATION STA (17:17)
[2025-06-05 17:23] LABS: INR 1.0 (<1.2); Partial Thromboplastin Time 22.0 sec (22.0-30.0); Prothrombin Time 11.3 sec (10.0-12.5)
[2025-06-05 17:24] LABS: ALT 49 U/L (4-34); African American GFR (CKD) >90 (>60 ml/min/1.73 sqM); Albumin 3.3 g/dL (3.5-5.0); Anion Gap 7 mmol/L; Blood Urea Nitrogen 23 mg/dL (7-17); Calcium 9.3 mg/dL (8.4-10.2); Carbon Dioxide 33 mmol/L (22-30); Chloride 99 mmol/L (98-107); Glucose 131 mg/dL (74-99); Non-African American GFR(CKD) >90 (>60 ml/min/1.73 sqM); Sodium 139 mmol/L (137-145); Total Protein 6.1 g/dL (6.3-8.2)
[2025-06-05 17:33] LABS: AST 126 U/L (14-36); Alkaline Phosphatase 170 U/L (38-126); NT-Pro-B-Type Natriuretic Pept 7770 pg/mL; Potassium 3.9 mmol/L (3.5-5.1)
[2025-06-05 18:10] LABS: RBC Morphology Normal
[2025-06-05 18:11] LABS: Platelet Count 80 10*3/uL (140-440)
--- NOTE | 2025-06-05 18:31 | CT ---
EXAMINATION TYPE: CT chest angio for PE CT DLP: 237.6 mGycm, Automated exposure control for dose reduction was used. DATE OF EXAM: 06/05/2025 6:00 PM COMPARISON: CT chest 05/01/2025 . CLINICAL INDICATION:Female, 69 years old with history of shortness of breath; SOB TECHNIQUE/CONTRAST: CTA scan of the thorax is performed with IV Contrast, patient injected with 100ml mL of Isovue 370, M IP images are created and reviewed these are created on a separate workstation.. FINDINGS: Pulmonary Artery: There is no evidence for a filling defect within the pulmonary vasculature to sugge st acute pulmonary embolism. The main pulmonary artery is enlarged measuring up to 3.6 cm in transve rse dimension. Lungs/Pleura: Redemonstrated diffuse parenchymal groundglass changes with interstitial prominence. Th ere is a trace right and small left pleural effusion with associated atelectasis. Calcified granuloma s are noted in the left lung. There are central lobular emphysematous changes with scattered parasept al emphysema noted in the apices. No discrete pneumothorax. Airway: Large airways are patent. Diffuse bronchiectasis is noted involving the upper airways and the right middle lung. Heart: Heart is within normal limits for size. Vasculature: No evidence of aortic aneurysm. Mediastinum: There are multiple enlarged soft tissue masses seen throughout the mediastinum some of w hich are new and others which are much more enlarged and conspicuous when compared to the study in [facility]. One of the more notable masses seen in the periaortic region encasing the aorta extending in to the gastroesophageal junction and inferiorly into the upper abdomen. Exact measurements are diffic ult to delineate however a largest component of the periaortic soft tissue region is seen measuring u p to at least 4.8 x 4.5 cm and becomes confluent with the left pleural space. Additionally there are multiple nonenlarged lymph nodes some of which are calcified in the remainder the mediastinum. The es ophagus is effaced at the level of the esophageal junction and lower mediastinum. Musculoskeletal: Multilevel thoracic spine compression deformities are seen unchanged from the CT in reference. Soft Tissues: Unremarkable. Lower neck: In the left medial clavicular region there are soft tissue masses which appear more consp icuous on today's exam the largest of these measuring up to at least 3.2 cm. Upper Abdomen: There are multiple newly visualized soft tissue masses in the upper mid abdomen and re trocrural and periaortic space when compared to the recent CT in reference. Some of these appear to b e present on the referenced study however those are also much more conspicuous and enlarged on today' s exam. Some of the more notable one of these masses are seen in the left para-aortic region measurin g up to at least 2.3 cm and on the right side measuring up to 2.8 cm. Scattered calcified granulomas in the spleen. Small hiatal hernia. IMPRESSION: 1. No evidence of pulmonary embolism. 2. Interval development and significant enlargement of multiple soft tissue masses in the mid upper a bdomen, retrocrural and periaortic region in addition to enlargement and new mediastinal and lower ne ck soft tissue masses. These findings are compared with the recent CT chest in reference. These findi ngs may relate to lymph nodes versus other neoplasms. Please correlate with any known history. Findin gs are concerning for a lymphoproliferative process such as lymphoma versus other secondary metastati c process. Further workup is recommended. 3. Enlarged main pulmonary artery may relate to pulmonary arterial hypertension. 4. Diffuse parenchymal groundglass changes superimposed on emphysematous lungs may represent pulmonar y edema versus fibrotic lung disease. Correlate for an infectious/inflammatory process. 5. Small left and right trace pleural effusion. [facility], , 06/05/2025 6:29 PM
[2025-06-05] MEDS ORDERED: NALOXONE 0.4 MG/ML 1 ML VIAL IV PRN (19:17)
--- NOTE | 2025-06-05 19:17 | ED ---
SOB HPI - General Chief Complaint: Shortness of Breath Stated Complaint: ABDULKADIR Time Seen by Provider: 06/05/25 16:07 Source: patient, EMS Mode of arrival: EMS Limitations: no limitations - History of Present Illness Initial Comments: 69-year-old female with past medical history of esophageal cancer on chemotherapy who presents to the emergency department with shortness of breath. Patient has been undergoing chemotherapy through our facility which has caused pulmonary fibrosis/pneumonitis. Patient has had significant issues with increased work of breathing. She was hospitalized in April for same complaint. She required breathing treatments, steroids and diuresis at that time. Patient went home and has been using oxygen as needed. Today the patient was extremely short of breath and required 6 L of oxygen. She did have an appointment with Dr. Davila yesterday. Chest x-ray was performed which family did receive the results today. They were told that the patient had a partially collapsed lung. When EMS got to the house they found the patient saturating in the 80s. They did place her on 12 L via nonrebreather with improvement to the 90s. Patient denies being on any current antibiotics or steroids. She did start a new chemotherapy which was completed 2 days ago. She denies fevers, chills or productive cough. No chest pain. She does take Lasix 20 mg a day. No other alleviating, precipitating or modifying factors - Related Data Home Medications Medication Instructions Recorded Confirmed Levothyroxine Sodium [Synthroid] 88 mcg PO DAILY@0600 06/30/15 06/05/25 Omeprazole 20 mg PO DAILY 06/30/15 06/05/25 ALPRAZolam [Xanax] 0.25 mg PO BID PRN 07/31/17 06/05/25 Pravastatin Sodium 80 mg PO HS 08/03/20 06/05/25 Mirtazapine [Remeron] 15 mg PO HS 06/26/24 06/05/25 Fluticasone Propion/Salmeterol 1 puff INHALATION RT-BID 05/01/25 06/05/25 [Advair 250-50 Diskus] Magnesium Oxide [Mag-Ox] 400 mg PO DAILY 05/01/25 06/05/25 Potassium Chloride ER [K-Dur 20] 20 meq PO DAILY 05/01/25 06/05/25 Albuterol Nebulized [Ventolin 2.5 mg INHALATION RT-DAILY 06/05/25 06/05/25 Nebulized] Albuterol Nebulized [Ventolin 2.5 mg INHALATION RT-TID PRN 06/05/25 06/05/25 Nebulized] Furosemide [Lasix] 20 mg PO DAILY 06/05/25 06/05/25 HYDROcodone/APAP 10-325MG [[place] 1 tab PO Q4H PRN 06/05/25 06/05/25 10-325] Metoprolol Tartrate [Lopressor] 12.5 mg PO BID 06/05/25 06/05/25 predniSONE 60 mg PO DAILY 06/05/25 06/05/25 Previous Rx's Medication Instructions Recorded Apixaban [Eliquis] 5 mg PO BID #60 tab 05/08/25 Allergies Allergy/AdvReac Type Severity Reaction Status Date / Time amoxicillin Allergy Rash/Hives Verified 06/05/25 17:49 Review of Systems ROS Statement: Those systems with pertinent positive or pertinent negative responses have been documented in the HPI. ROS Other: All systems not noted in ROS Statement are negative. Past Medical History Past Medical History: Cancer, COPD, GERD/Reflux, Hyperlipidemia, Hypertension, Osteoarthritis (OA), Pneumonia, Thyroid Disorder Additional Past Medical History / Comment(s): OVARIAN CANCER (DX 02/2015) LAST CH EMO March 2025, IBS,CHRONIC BACK PAIN, HX OF BRONCHITIS. cancer reoccurence - mass in esophagus and liver History of Any Multi-Drug Resistant Organisms: None Reported Past Surgical History: Cholecystectomy, Hysterectomy, Orthopedic Surgery, Tubal Ligation Additional Past Surgical History / Comment(s): PORT-A-CATH RT CHEST(04/2015),and removal of port, COLONOSCOPY,. EXCISION LIPOMA FROM ABD. WALL. Total Hysterectomy. LT FEMUR x2. knee replacement 03/2021 Past Anesthesia/Blood Transfusion Reactions: No Reported Reaction Additional Past Anesthesia/Blood Transfusion Reaction / Comment(s): NO COMPLICATIONS WITH BLOOD TRANSFUSION. Past Psychological History: Anxiety Smoking Status: Former smoker Past Alcohol Use History: None Reported Past Drug Use History: None Reported - Past Family History Mother Family Medical History: Cancer Additional Family Medical History / Comment(s): SQUAMOUS CELL CA-NECK. Father History Unknown: Yes General Exam Limitations: no limitations General appearance: alert, in distress Eye exam: Present: normal appearance, PERRL, EOMI. Absent: scleral icterus, conjunctival injection, periorbital swelling ENT exam: Present: normal exam, mucous membranes moist Neck exam: Present: normal inspection. Absent: tenderness, meningismus, lymphadenopathy Respiratory exam: Present: wheezes, decreased breath sounds Cardiovascular Exam: Present: regular rate, normal rhythm, normal heart sounds. Absent: systolic murmur, diastolic murmur, rubs, gallop, clicks GI/Abdominal exam: Present: soft, normal bowel sounds. Absent: distended, tenderness, guarding, rebound, rigid Extremities exam: Present: normal inspection, full ROM, normal capillary refill. Absent: tenderness, pedal edema, joint swelling, calf tenderness Back exam: Present: normal inspection Neurological exam: Present: alert, oriented X3, CN II-XII intact Course Vital Signs 06/05/25 06/05/25 06/05/25 16:08 17:17 18:05 Temperature 97.1 F L Pulse Rate 80 82 79 Respiratory 18 18 Rate Blood Pressure 163/101 132/74 O2 Sat by Pulse 96 99 Oximetry 06/05/25 06/05/25 20:00 21:00 Temperature Pulse Rate 86 75 Respiratory 22 20 Rate Blood Pressure 114/84 108/72 O2 Sat by Pulse 94 L 98 Oximetry Medical Decision Making - Medical Decision Making Was pt. sent in by a medical professional or institution (, PA, [employer], urgent care, hospital, or [facility]...) When possible be specific @ -No Did you speak to anyone other than the patient for history (EMS, parent, family, police, friend...)? What history was obtained from this source @ -Spoke with EMS and daughter for history Did you review nursing and triage notes (agree or disagree)? Why? @ -I reviewed and agree with nursing and triage notes Were old charts reviewed (outside hosp., previous admission, EMS record, old EKG, old radiological studies, urgent care reports/EKG's, [facility] records)? Report findings @ -I reviewed the hospitalization from April patient was admitted for pulmonary fibrosis Differential Diagnosis (chest pain, altered mental status, abdominal pain women, abdominal pain men, vaginal bleeding, weakness, fever, dyspnea, syncope, headache, dizziness, GI bleed, back pain, seizure, CVA, palpatations, mental health, musculoskeletal)? @ -Differential Dyspnea: Coronary syndrome, arrhythmia, tamponade, asthma, COPD, pulmonary embolism, p neumonia, pneumothorax, pulmonary effusion, anaphylaxis, diabetic ketoacidosis, flailed chest, pulmonary contusion, diaphragmatic rupture, anemia, neuromuscular, this is not meant to be an all-inclusive list. EKG interpreted by me (3pts min.). @ -Yes and demonstrates sinus rhythm with rate of 74. HI interval 168. QRS 86. QTc of 435. No acute ST segment elevation. Inverted T wave 2, 3, aVF V1 through V4 X-rays interpreted by me (1pt min.). @ -Yes which fails to demonstrate a pneumothorax CT interpreted by me (1pt min.). @ -yes which demonstrates significant fibrosis of the lungs U/S interpreted by me (1pt. min.). @ -None done What testing was considered but not performed or refused? (CT, X-rays, U/S, labs)? Why? @ -None What meds were considered but not given or refused? Why? @ -DuoNeb was attempted however patient would not tolerate Did you discuss the management of the patient with other professionals (professionals i.e. , PA, [employer], lab, RT, psych nurse, social welfare research worker, pace analyst, teacher, security flex officer, caser in)? Give summary @ -Spoke with Dr. Fisher for the admission Was smoking cessation discussed for >3mins.? @ -No Was critical care preformed (if so, how long)? @ -No Were there social determinants of health that impacted care today? How? (Homelessness, low income, unemployed, alcoholism, drug addiction, transportation, low edu. Level, literacy, decrease access to med. care, [facility], rehab)? @ -No Was there de-escalation of care discussed even if they declined (Discuss DNR or withdrawal of care, Hospice)? DNR status @ -No What co-morbidities impacted this encounter? (DM, HTN, Smoking, COPD, CAD, Cancer, CVA, ARF, Chemo, Hep., AIDS, mental health diagnosis, sleep apnea, morbid obesity)? @ -Esophageal cancer, chemo induced pulmonary fibrosis Was patient admitted / discharged? Hospital course, mention meds given and route, prescriptions, significant lab abnormalities, going to OR and other pertinent info. @ -Upon arrival patient is placed into room 3. Thorough history and physical exam was performed. Patient does drop into the 80s just upon transfer to the hospital bed. She was placed on 12 L nonrebreather. Laboratory studies are conducted. Portable chest x-ray was performed which does not demonstrate the pneumothorax that was previously visualized. I did follow this with a CT which demonstrates significant pulmonary fibrosis but no pneumothorax. Patient was given 125 of Solu-Medrol and we did attempt a DuoNeb breathing treatment however the patient did not tolerate this. I did give the patient a dose of Lasix. She will be admitted at this time. I did speak with Dr. Yenny Szymanski acute hypoxic respiratory failure rley who accepted the admission Undiagnosed new problem with uncertain prognosis? @ -No Drug Therapy requiring intensive monitoring for toxicity (Heparin, Nitro, Insulin, Cardizem)? @ -No Were any procedures done? @ -No Diagnosis/symptom? @ -Acute hypoxic respiratory failure, acute exacerbation of COPD/pulmonary fibrosis, hx esophageal ca on chemo, pleural effusion Acute, or Chronic, or Acute on Chronic? @ -acute/chronic Uncomplicated (without systemic symptoms) or Complicated (systemic symptoms)? @ -complicated Side effects of treatment? @ -No Exacerbation, Progression, or Severe Exacerbation? @ -yes Poses a threat to life or bodily function? How? (Chest pain, USA, DC, pneumonia, PE, COPD, DKA, ARF, appy, cholecystitis, CVA, Diverticulitis, Homicidal, Suicidal, threat to staff... and all critical care pts) @ -yes as patient was hypoxic - Lab Data Result diagrams: 06/05/25 16:24 06/05/25 16:24 Lab Results 06/05/25 06/05/25 06/05/25 Range/Units 16:24 16:24 16:24 WBC 9.69 (4.50-10.00) 10*3/uL RBC 4.34 (4.10-5.20) 10*6/uL Hgb 15.7 H (12.0-15.0) g/dL Hct 44.2 (37.2-46.3) % MCV 101.8 H (80.0-97.0) fL MCH 36.2 H (27.0-32.0) pg MCHC 35.5 (32.0-37.0) g/dL Plt Count 80 L (140-440) 10*3/uL MPV 9.8 (9.5-12.2) fL Immature Gran % (Auto) 0.5 % Neutrophils % 96.1 % Lymphocytes % 2.6 % Monocytes % 0.7 % Eosinophils % 0.0 % Basophils % 0.1 % Immature Gran # 0.05 H (0.00-0.04) 10*3/uL Neutrophils # 9.31 H (1.80-7.70) 10*3/uL Lymphocytes # 0.25 L (0.90-5.00) 10*3/uL Monocytes # 0.07 L (0.20-1.00) 10*3/uL Eosinophils # 0.00 L (0.04-0.35) 10*3/uL Basophils # 0.01 (0.00-0.10) 10*3/uL Manual Slide Review Performed RBC Morphology Normal PT 11.3 (10.0-12.5) sec INR 1.0 (<1.2) APTT 22.0 (22.0-30.0) sec Sodium 139 (137-145) mmol/L Potassium 3.9 (3.5-5.1) mmol/L Chloride 99 (98-107) mmol/L Carbon Dioxide 33 H (22-30) mmol/L Anion Gap 7 mmol/L BUN 23 H (7-17) mg/dL Creatinine 0.59 (0.52-1.04) mg/dL Est GFR (CKD-EPI)AfAm >90 (>60 ml/min/1.73 sqM) Est GFR (CKD-EPI)NonAf >90 (>60 ml/min/1.73 sqM) Glucose 131 H (74-99) mg/dL Plasma Lactic Acid Freedom (0.7-2.0) mmol/L Calcium 9.3 (8.4-10.2) mg/dL Total Bilirubin 1.2 (0.2-1.3) mg/dL AST 126 H (14-36) U/L ALT 49 H (4-34) U/L Alkaline Phosphatase 170 H (38-126) U/L Troponin I (0.000-0.034) ng/mL NT-Pro-B Natriuret Pep 7770 pg/mL Total Protein 6.1 L (6.3-8.2) g/dL Albumin 3.3 L (3.5-5.0) g/dL 07/11/25 07/11/25 Range/Units 16:24 16:24 WBC (4.50-10.00) 10*3/uL RBC (4.10-5.20) 10*6/uL Hgb (12.0-15.0) g/dL Hct (37.2-46.3) % MCV (80.0-97.0) fL MCH (27.0-32.0) pg MCHC (32.0-37.0) g/dL Plt Count (140-440) 10*3/uL MPV (9.5-12.2) fL Immature Gran % (Auto) % Neutrophils % % Lymphocytes % % Monocytes % % Eosinophils % % Basophils % % Immature Gran # (0.00-0.04) 10*3/uL Neutrophils # (1.80-7.70) 10*3/uL Lymphocytes # (0.90-5.00) 10*3/uL Monocytes # (0.20-1.00) 10*3/uL Eosinophils # (0.04-0.35) 10*3/uL Basophils # (0.00-0.10) 10*3/uL Manual Slide Review RBC Morphology PT (10.0-12.5) sec INR (<1.2) APTT (22.0-30.0) sec Sodium (137-145) mmol/L Potassium (3.5-5.1) mmol/L Chloride (98-107) mmol/L Carbon Dioxide (22-30) mmol/L Anion Gap mmol/L BUN (7-17) mg/dL Creatinine (0.52-1.04) mg/dL Est GFR (CKD-EPI)AfAm (>60 ml/min/1.73 sqM) Est GFR (CKD-EPI)NonAf (>60 ml/min/1.73 sqM) Glucose (74-99) mg/dL Plasma Lactic Acid Freedom 1.9 (0.7-2.0) mmol/L Calcium (8.4-10.2) mg/dL Total Bilirubin (0.2-1.3) mg/dL AST (14-36) U/L ALT (4-34) U/L Alkaline Phosphatase (38-126) U/L Troponin I 0.113 H* (0.000-0.034) ng/mL NT-Pro-B Natriuret Pep pg/mL Total Protein (6.3-8.2) g/dL Albumin (3.5-5.0) g/dL Disposition Clinical Impression: Hypoxia, Elevated troponin, Pulmonary fibrosis, Pleural effusion Disposition: ADMITTED IP TO THIS HOSP Condition: Stable Is patient prescribed a controlled substance at d/c from ED?: No Time of Disposition: 19:17 Decision to Admit Reason: Admit from EC Decision Date: 06/05/25 Decision Time: 19:17
[2025-06-05] MEDS: FUROSEMIDE 10 MG/ML 4 ML VIAL IV SCH (19:21)
[2025-06-05] MEDS: methylPREDNISolone SOD SUCCI 125 MG/2 ML VIAL IV STA (19:22)
[2025-06-05] MEDS: SYMBICORT 80-4.5 MCG INHALER INHALATION SCH (20:14)
[2025-06-05] MEDS: IPRATROPIUM-ALBUTEROL 3 ML NEB INHALATION SCH (20:15)
[2025-06-05] MEDS: PRAVASTATIN SODIUM 80 MG TAB PO SCH (20:22)
[2025-06-05] MEDS: MIRTAZAPINE 15 MG TAB PO SCH (20:23)
[2025-06-05] MEDS: ALPRAZolam 0.25 MG TAB PO PRN (20:23)
[2025-06-05] MEDS: APIXABAN 5 MG TAB PO SCH (20:24)
[2025-06-05] MEDS: METOPROLOL TARTRATE 12.5 MG TAB PO SCH (20:24)
[2025-06-06] MEDS: LEVOTHYROXINE 88 MCG TAB PO SCH (06:39)
[2025-06-06 07:29] LABS: Basophils # (A) 0.01 10*3/uL (0.00-0.10); Basophils % (A) 0.1 %; Eosinophils # (A) 0.00 10*3/uL (0.04-0.35); Eosinophils % (A) 0.0 %; HCT 43.5 % (37.2-46.3); HGB 14.9 g/dL (12.0-15.0); Lymphocytes # (A) 0.30 10*3/uL (0.90-5.00); Lymphocytes % (A) 3.4 %; MCH 34.9 pg (27.0-32.0); MCHC 34.3 g/dL (32.0-37.0); MCV 101.9 fL (80.0-97.0); Monocytes # (A) 0.08 10*3/uL (0.20-1.00); Monocytes % (A) 0.9 %; Neutrophils # (A) 8.47 10*3/uL (1.80-7.70); Neutrophils % (A) 95.2 %; RBC 4.27 10*6/uL (4.10-5.20); RDW 12.8 % (11.5-14.5); WBC 8.90 10*3/uL (4.50-10.00)
[2025-06-06 07:54] LABS: Platelet Count 81 10*3/uL (140-440)
[2025-06-06] MEDS ORDERED: methylPREDNISolone SOD SUCCI 40 MG/ML 1 ML VIAL IV SCH (08:00)
[2025-06-06] MEDS: PANTOPRAZOLE 40 MG TABLET PO SCH (08:12)
[2025-06-06] MEDS: POTASSIUM CHLORIDE ER 20 MEQ TAB.ER PO SCH (08:12)
[2025-06-06] MEDS: MAGNESIUM OXIDE 400 MG TAB PO SCH (08:12)
[2025-06-06] MEDS: methylPREDNISolone SOD SUCCI 125 MG/2 ML VIAL IV SCH (08:12)
[2025-06-06] MEDS: IPRATROPIUM-ALBUTEROL 3 ML NEB INHALATION SCH (08:17)
[2025-06-06 08:29] LABS: African American GFR (CKD) 88 (>60 ml/min/1.73 sqM); Anion Gap 6 mmol/L; Blood Urea Nitrogen 26 mg/dL (7-17); Calcium 9.2 mg/dL (8.4-10.2); Carbon Dioxide 37 mmol/L (22-30); Chloride 97 mmol/L (98-107); Glucose 154 mg/dL (74-99); Non-African American GFR(CKD) 76 (>60 ml/min/1.73 sqM); Potassium 3.4 mmol/L (3.5-5.1); Sodium 140 mmol/L (137-145)
--- NOTE | 2025-06-06 11:09 | P.HPIM ---
History of Present Illness H&P Date: 06/06/25 Chief Complaint: Shortness of breath hypoxia Is a 69-year-old female well-known to my practice who presented to the hospital with experiencing hypoxia known history of esophageal cancer patient is on enhurtu chemo with serial echoes every 6 to 8 weeks recently discontinued r elated to adverse effects of CHF reports she has about to start a new chemo on Sunday at [facility] yesterday started developing shortness of breath presented to emergency room on admission patient was in the low 90s on room air and tachypneic currently requiring 4 L nasal cannula to maintain O2 sats in the mid 90s Review of Systems Constitutional: Reports fatigue, Reports weakness Ears, nose, mouth and throat: Reports as per HPI Cardiovascular: Reports high blood pressure, Reports shortness of breath Respiratory: Reports dyspnea, Reports home oxygen, Reports sleep apnea Gastrointestinal: Reports as per HPI, Reports abdominal pain Genitourinary: Reports urge incontinence Menstruation: Reports postmenopausal Integumentary: Reports as per HPI Neurological: Reports as per HPI Psychiatric: Reports as per HPI Past Medical History Past Medical History: Cancer, COPD, GERD/Reflux, Hyperlipidemia, Hypertension, Osteoarthritis (OA), Pneumonia, Thyroid Disorder Additional Past Medical History / Comment(s): OVARIAN CANCER (DX 02/2015) LAST CHEMO March 2025, IBS,CHRONIC BACK PAIN, HX OF BRONCHITIS. cancer reoccurence - mass in esophagus and liver History of Any Multi-Drug Resistant Organisms: None Reported Past Surgical History: Cholecystectomy, Hysterectomy, Orthopedic Surgery, Tubal Ligation Additional Past Surgical History / Comment(s): PORT-A-CATH RT CHEST(04/2015),and removal of port, COLONOSCOPY,. EXCISION LIPOMA FROM ABD. WALL. Total Hysterectomy. LT FEMUR x2. knee replacement 03/2021 Past Anesthesia/Blood Transfusion Reactions: No Reported Reaction Additional Past Anesthesia/Blood Transfusion Reaction / Comment(s): NO COMPL ICATIONS WITH BLOOD TRANSFUSION. Past Psychological History: Anxiety Smoking Status: Former smoker Past Alcohol Use History: None Reported Past Drug Use History: None Reported - Past Family History Mother Family Medical History: Cancer Additional Family Medical History / Comment(s): SQUAMOUS CELL CA-NECK. Father History Unknown: Yes Medications and Allergies Home Medications Medication Instructions Recorded Confirmed Type RX: Levothyroxine Sodium 88 mcg PO DAILY@0600 06/30/15 06/05/25 History [Synthroid] RX: Omeprazole 20 mg PO DAILY 06/30/15 06/05/25 History RX: ALPRAZolam [Xanax] 0.25 mg PO BID PRN 07/31/17 06/05/25 History RX: Pravastatin Sodium 80 mg PO HS 08/03/20 06/05/25 History RX: Mirtazapine [Remeron] 15 mg PO HS 06/26/24 06/05/25 History RX: Fluticasone Propion/Salmeterol 1 puff INHALATION RT-BID 05/01/25 06/05/25 History [Advair 250-50 Diskus] RX: Magnesium Oxide [Mag-Ox] 400 mg PO DAILY 05/01/25 06/05/25 History RX: Potassium Chloride ER [K-Dur 20 meq PO DAILY 05/01/25 06/05/25 History 20] RX: Apixaban [Eliquis] 5 mg PO BID #60 tab 05/08/25 06/05/25 Rx Albuterol Nebulized [Ventolin 2.5 mg INHALATION RT-DAILY 06/05/25 06/05/25 History Nebulized] Albuterol Nebulized [Ventolin 2.5 mg INHALATION RT-TID PRN 06/05/25 06/05/25 History Nebulized] Metoprolol Tartrate [Lopressor] 12.5 mg PO BID 06/05/25 06/05/25 History RX: Furosemide [Lasix] 20 mg PO DAILY 06/05/25 06/05/25 History RX: HYDROcodone/APAP 10-325MG 1 tab PO Q4H PRN 06/05/25 06/05/25 History [[place] 10-325] RX: predniSONE 60 mg PO DAILY 06/05/25 06/05/25 History Allergies Allergy/AdvReac Type Severity Reaction Status Date / Time amoxicillin Allergy Rash/Hives Verified 06/05/25 17:49 Physical Exam Osteopathic Statement: *. No significant issues noted on an osteopathic structural exam other than those noted in the History and Physical/Consult. Vitals: Vital Signs Temp Pulse Resp BP Pulse Ox 06/06/25 08:29 84 06/06/25 08:17 82 06/06/25 08:09 97.7 F 79 24 106/84 92 L 06/06/25 07:31 96 06/06/25 05:00 73 22 122/78 95 06/06/25 04:00 74 20 113/79 96 06/06/25 03:00 71 20 111/75 95 06/06/25 02:00 69 20 111/75 95 06/06/25 01:00 67 21 123/83 96 06/06/25 00:00 66 20 109/93 97 06/05/25 23:00 66 20 121/80 96 06/05/25 22:00 72 20 131/91 97 06/05/25 21:00 75 20 108/72 98 06/05/25 20:00 86 22 114/84 94 L 06/05/25 18:05 79 18 132/74 99 06/05/25 17:17 82 06/05/25 16:08 97.1 F L 80 18 163/101 96 Intake and Output 06/05/25 06/06/25 06/06/25 22:59 06:59 14:59 Other: Weight 63.049 kg General: [Patient awake, alert and oriented times 3. Patient in no acute distress. Cachectic HEENT: [PERRL. EOMI. No pharyngeal erythema or exudate.] Neck: [No adenopathy.] Cardiac: [Heart regular in rate and rhythm. No S3. No S4. No clicks, rubs. No murmur.] Lungs: Diminished breath sounds bilaterally Abdomen: [No mass. No organomegaly. Bowel sounds presnt and normoactive in all 4 quadrants.] Extremes: [No edema no cyanosis no claudication normal pulses] : Normal female genitalia Musculoskeletal: [No joint erythema, edema or tenderness.] Skin: [No rash.] Neurologic: [No lateralizing deficits. CN II - XII grossly intact.] Lymphatic: [No adenopathy.] Results CBC & Chem 7: 06/06/25 06:57 06/06/25 06:57 Labs: Abnormal Lab Results - Last 24 Hours (Table) 06/05/25 06/05/25 06/05/25 Range/Units 16:24 16:24 16:24 Hgb 15.7 H (12.0-15.0) g/dL MCV 101.8 H (80.0-97.0) fL MCH 36.2 H (27.0-32.0) pg Plt Count 80 L (140-440) 10*3/uL Immature Gran # 0.05 H (0.00-0.04) 10*3/uL Neutrophils # 9.31 H (1.80-7.70) 10*3/uL Lymphocytes # 0.25 L (0.90-5.00) 10*3/uL Monocytes # 0.07 L (0.20-1.00) 10*3/uL Eosinophils # 0.00 L (0.04-0.35) 10*3/uL Potassium (3.5-5.1) mmol/L Chloride (98-107) mmol/L Carbon Dioxide 33 H (22-30) mmol/L BUN 23 H (7-17) mg/dL Glucose 131 H (74-99) mg/dL AST 126 H (14-36) U/L ALT 49 H (4-34) U/L Alkaline Phosphatase 170 H (38-126) U/L Troponin I 0.113 H* (0.000-0.034) ng/mL Total Protein 6.1 L (6.3-8.2) g/dL Albumin 3.3 L (3.5-5.0) g/dL 06/05/25 06/06/25 06/06/25 Range/Units 20:06 00:01 06:57 Hgb (12.0-15.0) g/dL MCV 101.9 H (80.0-97.0) fL MCH 34.9 H (27.0-32.0) pg Plt Count 81 L (140-440) 10*3/uL Immature Gran # (0.00-0.04) 10*3/uL Neutrophils # 8.47 H (1.80-7.70) 10*3/uL Lymphocytes # 0.30 L (0.90-5.00) 10*3/uL Monocytes # 0.08 L (0.20-1.00) 10*3/uL Eosinophils # 0.00 L (0.04-0.35) 10*3/uL Potassium (3.5-5.1) mmol/L Chloride (98-107) mmol/L Carbon Dioxide (22-30) mmol/L BUN (7-17) mg/dL Glucose (74-99) mg/dL AST (14-36) U/L ALT (4-34) U/L Alkaline Phosphatase (38-126) U/L Troponin I 0.145 H* 0.163 H* (0.000-0.034) ng/mL Total Protein (6.3-8.2) g/dL Albumin (3.5-5.0) g/dL 06/06/25 Range/Units 06:57 Hgb (12.0-15.0) g/dL MCV (80.0-97.0) fL MCH (27.0-32.0) pg Plt Count (140-440) 10*3/uL Immature Gran # (0.00-0.04) 10*3/uL Neutrophils # (1.80-7.70) 10*3/uL Lymphocytes # (0.90-5.00) 10*3/uL Monocytes # (0.20-1.00) 10*3/uL Eosinophils # (0.04-0.35) 10*3/uL Potassium 3.4 L (3.5-5.1) mmol/L Chloride 97 L (98-107) mmol/L Carbon Dioxide 37 H (22-30) mmol/L BUN 26 H (7-17) mg/dL Glucose 154 H (74-99) mg/dL AST (14-36) U/L ALT (4-34) U/L Alkaline Phosphatase (38-126) U/L Troponin I (0.000-0.034) ng/mL Total Protein (6.3-8.2) g/dL Albumin (3.5-5.0) g/dL
--- NOTE | 2025-06-06 11:17 | P.CNPUL ---
History of Present Illness Consult date: 06/06/25 Requesting physician: Caleb Fisher Jr Reason for consult: dyspnea, hypoxemia, abnormal CXR/CT Chief complaint: Shortness of breath History of present illness: This is a 69-year-old female patient with a known history of ovarian cancer post resection and chemotherapy. 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 She has been treated with various forms of chemotherapy. She developed significant hypoxemia and pneumonitis and was seen here between May 01 through May 10 and subsequent discharged home. She had been on and off steroids. At 1 point she had stopped them due to intolerance. He received immunotherapy earlier this week on June 02, 2025. She came back to the emergency room yesterday with increasing shortness of breath, cough and congestion. Significant dyspnea on minimal exertion. Chest x-ray revealed diffuse interstitial prominence suspicious for interstitial lung disease versus atypical pneumonia. CT angiogram ruled out pulmonary embolism. There is interval development and significant enlargement of multiple soft tissue masses in the mid upper abdomen, retrocrural and periaortic region in addition to enlargement and new mediastinal and lower neck soft tissue masses. Diffuse parenchymal groundglass changes superimposed on of somatic lungs may represent pulmonary edema versus fibrotic lung disease. Small left and trace right pleural ef fusions. White count 8.9. Hemoglobin 14.9. Platelets 81,000. Sodium 140. Potassium 3.4. Bicarb 37. BUN 26. Creatinine 0.8. Glucose 154. Troponin 0.113, 0.145, 0.163. proBNP 7770. AST 126. ALT 49. Alk phos 170. She is seen today in consultation in the emergency department. Currently sitting up on a stretcher. Awake and alert in mild respiratory distress. She is requiring 13 L high flow nasal cannula to maintain O2 saturations in the 90s. Review of Systems REVIEW OF SYSTEMS: CONSTITUTIONAL: Denies any recent significant weight loss or weight gain. EYES: Denies change in vision. EARS, NOSE, MOUTH, THROAT: Denies headaches, denies sore throat. CARDIOVASCULAR: Denies chest pain, palpitations or syncopal episodes. RESPIRATORY: Positive for shortness of breath, cough, congestion no hemoptysis. GASTROINTESTINAL: Denies change in appetite, denies abdominal pain GENITOURINARY: Denies hematuria, denies infections. MUSKULOSKELETAL: Denies pain, denies swelling. INTEGUMENTARY: Denies rash, denies eczema. NEUROLOGICAL: Denies recent memory loss, no recent seizure activity. PSYCHIATRIC: Denies anxiety, denies depression. HEMATOLOGIC/LYMPHATIC: Denies anemia, denies enlarged lymph nodes. Past Medical History Past Medical History: Cancer, COPD, GERD/Reflux, Hyperlipidemia, Hypertension, Osteoarthritis (OA), Pneumonia, Thyroid Disorder Additional Past Medical History / Comment(s): OVARIAN CANCER (DX 02/2015) LAST CHEMO March 2025, IBS,CHRONIC BACK PAIN, HX OF BRONCHITIS. cancer reoccurence - mass in esophagus and liver History of Any Multi-Drug Resistant Organisms: None Reported Past Surgical History: Cholecystectomy, Hysterectomy, Orthopedic Surgery, Tubal Ligation Additional Past Surgical History / Comment(s): PORT-A-CATH RT CHEST(04/2015),and removal of port, COLONOSCOPY,. EXCISION LIPOMA FROM ABD. WALL. Total Hysterectomy. LT FEMUR x2. knee replacement 03/2021 Past Anesthesia/Blood Transfusion Reactions: No Reported Reaction Additional Past Anesthesia/Blood Transfusion Reaction / Comment(s): NO COMPLICATIONS WITH BLOOD TRANSFUSION. Past Psychological History: Anxiety Smoking Status: Former smoker Past Alcohol Use History: None Reported Past Drug Use History: None Reported - Past Family History Mother Family Medical History: Cancer Additional Family Medical History / Comment(s): SQUAMOUS CELL CA-NECK. Father History Unknown: Yes Medications and Allergies Home Medications Medication Instructions Recorded Confirmed Type Levothyroxine Sodium [Synthroid] 88 mcg PO DAILY@0600 06/30/15 06/05/25 History Omeprazole 20 mg PO DAILY 06/30/15 06/05/25 History ALPRAZolam [Xanax] 0.25 mg PO BID PRN 07/31/17 06/05/25 History Pravastatin Sodium 80 mg PO HS 08/03/20 06/05/25 History Mirtazapine [Remeron] 15 mg PO HS 06/26/24 06/05/25 History Fluticasone Propion/Salmeterol 1 puff INHALATION RT-BID 05/01/25 06/05/25 History [Advair 250-50 Diskus] Magnesium Oxide [Mag-Ox] 400 mg PO DAILY 05/01/25 06/05/25 History Potassium Chloride ER [K-Dur 20] 20 meq PO DAILY 05/01/25 06/05/25 History Apixaban [Eliquis] 5 mg PO BID #60 tab 05/08/25 06/05/25 Rx Albuterol Nebulized [Ventolin 2.5 mg INHALATION RT-DAILY 06/05/25 06/05/25 History Nebulized] Albuterol Nebulized [Ventolin 2.5 mg INHALATION RT-TID PRN 06/05/25 06/05/25 History Nebulized] Furosemide [Lasix] 20 mg PO DAILY 06/05/25 06/05/25 History HYDROcodone/APAP 10-325MG [[place] 1 tab PO Q4H PRN 06/05/25 06/05/25 History 10-325] Metoprolol Tartrate [Lopressor] 12.5 mg PO BID 06/05/25 06/05/25 History predniSONE 60 mg PO DAILY 06/05/25 06/05/25 History Allergies Allergy/AdvReac Type Severity Reaction Status Date / Time amoxicillin Allergy Rash/Hives Verified 06/05/25 17:49 Physical Exam Vitals: Vital Signs Temp Pulse Resp BP Pulse Ox 06/06/25 08:29 84 06/06/25 08:17 82 06/06/25 08:09 97.7 F 79 24 106/84 92 L 06/06/25 07:31 96 06/06/25 05:00 73 22 122/78 95 06/06/25 04:00 74 20 113/79 96 06/06/25 03:00 71 20 111/75 95 06/06/25 02:00 69 20 111/75 95 06/06/25 01:00 67 21 123/83 96 06/06/25 00:00 66 20 109/93 97 06/05/25 23:00 66 20 121/80 96 06/05/25 22:00 72 20 131/91 97 06/05/25 21:00 75 20 108/72 98 06/05/25 20:00 86 22 114/84 94 L 06/05/25 18:05 79 18 132/74 99 06/05/25 17:17 82 06/05/25 16:08 97.1 F L 80 18 163/101 96 Intake and Output 06/05/25 06/06/25 06/06/25 22:59 06:59 14:59 Other: Weight 63.049 kg GENERAL EXAM: Alert, pleasant 69-year-old female, on 13 L high flow nasal cannula, fairly comfortable in no apparent distress. HEAD: Normocephalic. EYES: Normal reaction of pupils, equal size. NOSE: Clear with pink turbinates. THROAT: No erythema or exudates. NECK: No masses, no JVD. CHEST: No chest wall deformity. LUNGS: Equal air entry with bilateral scattered rhonchi, crackles in the bases. CVS: S1 and S2 normal with no audible murmur, regular rhythm. ABDOMEN: No hepatosplenomegaly, normal bowel sounds, no guarding or rigidity. SPINE: No scoliosis or deformity SKIN: No rashes CENTRAL NERVOUS SYSTEM: No focal deficits, tone is normal in all 4 extremities. EXTREMITIES: There is no peripheral edema. No clubbing, no cyanosis. Peripheral pulses are intact. Results - Laboratory Findings CBC and BMP: 06/06/25 06:57 06/06/25 06:57 PT/INR, D-dimer PT 11.3 sec (10.0-12.5) 06/05/25 16:24 INR 1.0 (<1.2) 06/05/25 16:24 Abnormal lab findings: Abnormal Labs 06/05/25 06/05/25 06/05/25 16:24 16:24 16:24 Hgb 15.7 H MCV 101.8 H MCH 36.2 H Plt Count 80 L Immature Gran # 0.05 H Neutrophils # 9.31 H Lymphocytes # 0.25 L Monocytes # 0.07 L Eosinophils # 0.00 L Potassium Chloride Carbon Dioxide 33 H BUN 23 H Glucose 131 H AST 126 H ALT 49 H Alkaline Phosphatase 170 H Troponin I 0.113 H* Total Protein 6.1 L Albumin 3.3 L 06/05/25 06/06/25 06/06/25 20:06 00:01 06:57 Hgb MCV 101.9 H MCH 34.9 H Plt Count 81 L Immature Gran # Neutrophils # 8.47 H Lymphocytes # 0.30 L Monocytes # 0.08 L Eosinophils # 0.00 L Potassium Chloride Carbon Dioxide BUN Glucose AST ALT Alkaline Phosphatase Troponin I 0.145 H* 0.163 H* Total Protein Albumin 06/06/25 06:57 Hgb MCV MCH Plt Count Immature Gran # Neutrophils # Lymphocytes # Monocytes # Eosinophils # Potassium 3.4 L Chloride 97 L Carbon Dioxide 37 H BUN 26 H Glucose 154 H AST ALT Alkaline Phosphatase Troponin I Total Protein Albumin - Diagnostic Findings Chest x-ray: image reviewed CT scan - chest: image reviewed Assessment and Plan Assessment: Acute hypoxic respiratory failure, currently requiring 13 L of high flow oxygen by nasal cannula. CT angiogram ruled out pulmonary embolism. There is interval development and significant enlargement of multiple soft tissue masses in the mid upper abdomen, retrocrural and periaortic region in addition to enlargement and new mediastinal and lower neck soft tissue masses. Diffuse parenchymal groundglass changes superimposed on of somatic lungs may represent pulmonary edema versus fibrotic lung disease. Small left and trace right pleural effusions. The patient did receive immunotherapy on 06/02/2025 Recent admission from May 01 through May 10, 2025 for similar findings and pneumonitis. Suspected Enhertu related pneumonitis Acute shortness of breath secondary to above Metastatic esophageal cancer with development of esophageal and mediastinal lymphadenopathy COPD History of ovarian cancer Chronic anxiety Chronic back pain Hypertension Hyperlipidemia Former smoker Plan: The patient was seen and evaluated Imaging, labs and medications reviewed Currently on 13 L high flow nasal cannula Titrate the FiO2 as tolerated Add DuoNeb inhalations Add Symbicort Add Solu-Medrol 60 mg every 6 hours Resume her home medications Obtain a sputum culture if possible Oncology consult placed We will continue to follow and make further recommendations based on her clinical status I have personally seen and examined the patient, performed the documentation and the assessment and plan as written. Number of minutes spent on the visit: 20 Dictation was produced using [employer] dictation software. Please excuse any grammatical, word or spelling errors.
[2025-06-06] MEDS: HYDROcodone/APAP 10-325MG 1 EACH TAB PO PRN (18:13)
--- NOTE | 2025-06-07 10:24 | P.PN ---
Subjective Progress Note Date: 06/07/25 Principal diagnosis: Shortness of breath, hypoxemia. This is a 69-year-old female patient with a known history of ovarian cancer post resection and chemotherapy. 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 She has been treated with various forms of chemotherapy. She developed significant hypoxemia and pneumonitis and was seen here between May 01 through May 10 and subsequent discharged home. She had been on and off steroids. At 1 point she had stopped them due to intolerance. He received immunotherapy earlier this week on June 02, 2025. She came back to the emergency room yesterday with increasing shortness of breath, cough and congestion. Si gnificant dyspnea on minimal exertion. Chest x-ray revealed diffuse interstitial prominence suspicious for interstitial lung disease versus atypical pneumonia. CT angiogram ruled out pulmonary embolism. There is interval development and significant enlargement of multiple soft tissue masses in the mid upper abdomen, retrocrural and periaortic region in addition to enlargement and new mediastinal and lower neck soft tissue masses. Diffuse parenchymal groundglass changes superimposed on of somatic lungs may represent pulmonary edema versus fibrotic lung disease. Small left and trace right pleural effusions. White count 8.9. Hemoglobin 14.9. Platelets 81,000. Sodium 140. Potassium 3.4. Bicarb 37. BUN 26. Creatinine 0.8. Glucose 154. Troponin 0.113, 0.145, 0.163. proBNP 7770. AST 126. ALT 49. Alk phos 170. She is seen today in consultation in the emergency department. Currently sitting up on a stretcher. Awake and alert in mild respiratory distress. She is requiring 13 L high flow nasal cannula to maintain O2 saturations in the 90s. Progress note dated June 07, 2025. The patient is seen today in room 356. She was seen yesterday in the emergency department. Please see our consultation above. She has been weaned down to 10 L high flow O2. Saturations 99%. It appears that she can be weaned even further. The patient is currently on Symbicort, Solu-Medrol 60 mg every 6 hours, and DuoNeb. BNP was 7770. Troponins were mildly elevated. We will check a procalcitonin level, to rule out infection. Also, cardiology will be consulted. No new labs today. No new x-rays today. Objective - Vital Signs Vital signs: Vital Signs Temp 98.2 F 06/07/25 04:00 Pulse 84 06/07/25 08:08 Resp 18 06/07/25 04:00 BP 110/65 06/07/25 04:00 Pulse Ox 99 06/07/25 07:52 FiO2 Intake & Output 06/06/25 06/07/25 06/07/25 18:59 06:59 18:59 Intake Total 240 Output Total 200 Balance 40 Weight 63.049 kg 56 kg Intake: Oral 240 Output: Urine 200 Other: Voiding Method External Catheter External Catheter - Exam No acute distress, oriented 3. Mild conversational dyspnea. HEENT examination is grossly unremarkable. Mucous membranes are moist. No oral lesions. Neck supple. Full range of motion. No adenopathy thyromegaly or neck vein distention. Cardiovascular examination reveals regular rhythm rate. S1-S2 normal. No S3 or S4. No discernible murmur noted. Lungs reveal bilateral rhonchi, and scattered crackles. Breath sounds are equal. No wheezes. Abdomen soft bowel sounds are heard. No masses or tenderness. Extremities are intact. No cyanosis clubbing or edema. Skin is without rash or lesion. Neurologic examination is brief but nonfocal. - Labs CBC & Chem 7: 06/06/25 06:57 06/06/25 06:57 Assessment and Plan Assessment: Acute hypoxic respiratory failure, currently requiring 10 L of high flow oxygen by nasal cannula. CT angiogram ruled out pulmonary embolism. There is interval development and significant enlargement of multiple soft tissue masses in the mid upper abdomen, retrocrural and periaortic region in addition to enlargement and new mediastinal and lower neck soft tissue masses. Diffuse parenchymal groundglass changes superimposed on of somatic lungs may represent pulmonary edema versus fibrotic lung disease. Small left and trace right pleural effusions. The patient did receive immunotherapy on 06/02/2025 Recent admission from May 01 through May 10, 2025 for similar findings and pneumonitis. Suspect Enhertu related pneumonitis. Acute shortness of breath secondary to above. Metastatic esophageal cancer with development of esophageal and mediastinal lymphadenopathy. COPD. History of ovarian cancer. Chronic anxiety. Chronic back pain. Hypertension. Hyperlipidemia. Former smoker. Plan: Plan dated June 07, 2025. The patient had an elevated N-terminal proBNP, and her troponins were elevated, albeit mildly. In addition, we will check a procalcitonin level, to see if there is any evidence of infection. Clinically, the patient is doing better. He was turned off from 13 L high flow, to 10 L high flow. On 10 L, her saturations are 99%, and her oxygen can be titrated further. We will have cardiology see the patient. Additional recommendations and suggestions are forthcoming. All labs, x-rays, and medications are reviewed. Prognosis is guarded. Dictation was produced using [employer] dictation software. Please excuse any grammatical, word or spelling errors. Time with Patient: Less than 30
[2025-06-07 11:18] LABS: Basophils # (A) 0.03 10*3/uL (0.00-0.10); Basophils % (A) 0.3 %; Eosinophils # (A) 0.00 10*3/uL (0.04-0.35); Eosinophils % (A) 0.0 %; HCT 44.1 % (37.2-46.3); HGB 15.7 g/dL (12.0-15.0); Lymphocytes # (A) 0.48 10*3/uL (0.90-5.00); Lymphocytes % (A) 4.2 %; MCH 36.3 pg (27.0-32.0); MCHC 35.6 g/dL (32.0-37.0); MCV 102.1 fL (80.0-97.0); Monocytes # (A) 0.23 10*3/uL (0.20-1.00); Monocytes % (A) 2.0 %; Neutrophils # (A) 10.64 10*3/uL (1.80-7.70); Neutrophils % (A) 93.1 %; Platelet Count 102 10*3/uL (140-440); RBC 4.32 10*6/uL (4.10-5.20); RDW 12.3 % (11.5-14.5); WBC 11.43 10*3/uL (4.50-10.00)
[2025-06-07 11:50] LABS: African American GFR (CKD) >90 (>60 ml/min/1.73 sqM); Anion Gap 9 mmol/L; Blood Urea Nitrogen 34 mg/dL (7-17); Calcium 9.6 mg/dL (8.4-10.2); Carbon Dioxide 38 mmol/L (22-30); Chloride 90 mmol/L (98-107); Glucose 176 mg/dL (74-99); Magnesium 1.7 mg/dL (1.6-2.3); Non-African American GFR(CKD) 88 (>60 ml/min/1.73 sqM); Potassium 3.2 mmol/L (3.5-5.1); Sodium 137 mmol/L (137-145)
[2025-06-07] MEDS ORDERED: Potassium Replacement Protocol 1 EACH MISC MISCELLANE PRN (11:58)
[2025-06-07] MEDS ORDERED: Magnesium Replacement Protocol 1 EACH MISC MISCELLANE PRN (11:59)
[2025-06-07] MEDS: POTASSIUM CHLORIDE ER 20 MEQ TAB.ER PO SCH (12:31)
[2025-06-07] MEDS: MAGNESIUM SULFATE-D5W PMX 1 GM in DEXTROSE/WATER 1 100ML.BAG IVPB ONE (12:31)
--- NOTE | 2025-06-07 16:34 | P.CONS ---
History of Present Illness - Reason for Consult Consult date: 06/06/25 esophageal cancer Requesting physician: Ayse Lake - Chief Complaint SOB - History of Present Illness Ms. Real is a 69-year-old female with multiple comorbidities including history of ovarian cancer status post resection and chemotherapy. In 02/16, she was diagnosed with distal esophageal cancer, metastatic, and was started on palliative chemotherapy with FOLFOX and Herceptin completing 9 cycles. Due to intolerance, her regimen was changed to Herceptin and 5FU infusion only. The patient was subsequently changed to Enhertu on progression. She was on the same till about 03/20, at which time she developed progressive shortness of breath. She had CT scans of the chest done in the [facility] system, most recently in 03/20, that were concerning for pneumonitis, showing bilateral infiltrative changes and groundglass opacities, more prominent in the lung apices. As this is a known side effect of her regimen, that was discontinued, and the patient was placed on steroids. She completed her steroid taper in late 04/19, with improvement in her respiratory complaints. The patient's subsequent imaging had shown evidence of progression, and the plan was to change her to Taxol and Cyramza, with cycle 1 being delayed r/t admission last month for SOB, felt to be r/t to pneumonitis r/t Enhertu. She was treated again with steroid taper. Pt states SOB was initially improving on higher dose steroids but SOB progressed as the taper decreased. She had cycle 1 of cyramza/taxol on 06/02. She states that since she has been experiencing shortness of breath and hypoxia that caused her to present to the emergency room for further evaluation. She was seen by her cloth mender, which there was possible concern for collapsed lung?. Upon admit repeat chest x-ray did not show any evidence of pneumothorax. CTA chest negative for pulmonary embolism. With interval development and enlargement of multiple soft tissue masses in the mid upper abdomen, retrocrural and periaortic region in addition to enlargement to new mediastinal and lower neck soft tissue masses. Of note does report that these masses were previously noted on CT chest from 05/01/2025 but are more conspicuous and have enlarged. Patient was also found to have mildly elevated serial troponins. BNP elevated at 7770. Elevated LFTs, bilirubin 1.2. WBC 8.9, hemoglobin 14.9, platelets 81,000. Creatinine 0.80, GFR 76. Pulmonology is following. Patient has been started on high-dose steroids, with Solu-Medrol 60 mg every 6 hours. Patient is also reporting since admit she has been experiencing episodes of tachycardia with associated chest pressure and dizziness. Cardiology has been consulted Review of Systems 10 point ROS is negative except as sated in the HPI Past Medical History Past Medical History: Cancer, COPD, GERD/Reflux, Hyperlipidemia, Hypertension, Osteoarthritis (OA), Pneumonia, Thyroid Disorder Additional Past Medical History / Comment(s): OVARIAN CANCER (DX 02/2015) LAST C HEMO May 2025, IBS,CHRONIC BACK PAIN, HX OF BRONCHITIS. cancer reoccurence - mass in esophagus and liver History of Any Multi-Drug Resistant Organisms: None Reported Past Surgical History: Cholecystectomy, Hysterectomy, Orthopedic Surgery, Tubal Ligation Additional Past Surgical History / Comment(s): PORT-A-CATH RT CHEST(04/2015),and removal of port, COLONOSCOPY,. EXCISION LIPOMA FROM ABD. WALL. Total Hysterectomy. LT FEMUR x2. knee replacement 03/2021 Past Anesthesia/Blood Transfusion Reactions: No Reported Reaction Additional Past Anesthesia/Blood Transfusion Reaction / Comm: NO COMPLICATIONS WITH BLOOD TRANSFUSION. Past Psychological History: Anxiety Smoking Status: Former smoker Past Alcohol Use History: None Reported Additional Past Alcohol Use History / Comment(s): QUIT SMOKING 2004,STARTED 1984. SMOKED LESS THAN 1 PPD. DRINKS 3 PER WEEK, NO ALCOHOL IN THE LAST COUPLE WEEKS. Past Drug Use History: None Reported - Past Family History Mother Family Medical History: Cancer Additional Family Medical History / Comment(s): SQUAMOUS CELL CA-NECK. Father History Unknown: Yes Medications and Allergies Home Medications Medication Instructions Recorded Confirmed Type Levothyroxine Sodium [Synthroid] 88 mcg PO DAILY@0600 06/30/15 06/05/25 History Omeprazole 20 mg PO DAILY 06/30/15 06/05/25 History ALPRAZolam [Xanax] 0.25 mg PO BID PRN 07/31/17 06/05/25 History Pravastatin Sodium 80 mg PO HS 08/03/20 06/05/25 History Mirtazapine [Remeron] 15 mg PO HS 06/26/24 06/05/25 History Fluticasone Propion/Salmeterol 1 puff INHALATION RT-BID 05/01/25 06/05/25 H istory [Advair 250-50 Diskus] Magnesium Oxide [Mag-Ox] 400 mg PO DAILY 05/01/25 06/05/25 History Potassium Chloride ER [K-Dur 20] 20 meq PO DAILY 05/01/25 06/05/25 History Apixaban [Eliquis] 5 mg PO BID #60 tab 05/08/25 06/05/25 Rx Albuterol Nebulized [Ventolin 2.5 mg INHALATION RT-DAILY 06/05/25 06/05/25 History Nebulized] Albuterol Nebulized [Ventolin 2.5 mg INHALATION RT-TID PRN 06/05/25 06/05/25 History Nebulized] Furosemide [Lasix] 20 mg PO DAILY 06/05/25 06/05/25 History HYDROcodone/APAP 10-325MG [[place] 1 tab PO Q4H PRN 06/05/25 06/05/25 History 10-325] Metoprolol Tartrate [Lopressor] 12.5 mg PO BID 06/05/25 06/05/25 History predniSONE 60 mg PO DAILY 06/05/25 06/05/25 History Allergies Allergy/AdvReac Type Severity Reaction Status Date / Time amoxicillin Allergy Rash/Hives Verified 06/05/25 17:49 Physical Exam Vitals: Vital Signs Temp Pulse Pulse Resp BP BP Pulse Ox 06/06/25 20:32 89 06/06/25 20:20 88 06/06/25 20:00 97.9 F 73 18 113/76 96 06/06/25 15:05 98.1 F 74 18 118/65 98 06/06/25 14:46 97.9 F 06/06/25 14:30 81 20 116/75 95 06/06/25 12:49 89 20 105/67 95 06/06/25 12:04 86 06/06/25 11:50 77 06/06/25 08:29 84 06/06/25 08:17 82 06/06/25 08:09 97.7 F 79 24 106/84 92 L 06/06/25 07:31 96 06/06/25 05:00 73 22 122/78 95 06/06/25 04:00 74 20 113/79 96 06/06/25 03:00 71 20 111/75 95 06/06/25 02:00 69 20 111/75 95 06/06/25 01:00 67 21 123/83 96 06/06/25 00:00 66 20 109/93 97 06/05/25 23:00 66 20 121/80 96 Intake and Output 06/06/25 06/06/25 06/06/25 06:59 14:59 22:59 Other: Voiding Method External Catheter Weight 63.049 kg - Constitutional General appearance: average body habitus, mild distress - EENT Eyes: anicteric sclerae, EOMI ENT: hearing grossly normal - Respiratory Respiratory: bilateral: diminished - Cardiovascular Rhythm: regular - Gastrointestinal General gastrointestinal: soft, no tenderness - Integumentary Integumentary: no cyanotic - Musculoskeletal Musculoskeletal: generalized weakness - Psychiatric anxious Psychiatric: A&O x's 3 Results CBC & Chem 7: 06/07/25 11:07 06/07/25 11:07 Labs: Abnormal Lab Results - Last 24 Hours (Table) 06/06/25 06/06/25 06/06/25 Range/Units 00:01 06:57 06:57 MCV 101.9 H (80.0-97.0) fL MCH 34.9 H (27.0-32.0) pg Plt Count 81 L (140-440) 10*3/uL Neutrophils # 8.47 H (1.80-7.70) 10*3/uL Lymphocytes # 0.30 L (0.90-5.00) 10*3/uL Monocytes # 0.08 L (0.20-1.00) 10*3/uL Eosinophils # 0.00 L (0.04-0.35) 10*3/uL Potassium 3.4 L (3.5-5.1) mmol/L Chloride 97 L (98-107) mmol/L Carbon Dioxide 37 H (22-30) mmol/L BUN 26 H (7-17) mg/dL Glucose 154 H (74-99) mg/dL Troponin I 0.163 H* (0.000-0.034) ng/mL Chest x-ray: report reviewed CT scan - chest: report reviewed Assessment and Plan (1) Elevated troponin Current Visit: Yes Status: Acute Code(s): R77.8 - OTHER SPECIFIED ABNORMALITIES OF PLASMA PROTEINS SNOMED Code(s): 926088325 (2) Hypoxia Current Visit: Yes Status: Acute Code(s): R09.02 - HYPOXEMIA SNOMED Code(s): 654891206 (3) Esophageal adenocarcinoma Current Visit: No Status: Chronic Priority: High Code(s): C15.9 - MALIGNANT NEOPLASM OF ESOPHAGUS, UNSPECIFIED SNOMED Code(s): 545136117 Plan: SOB: Admission last month for the same, concern for pneumonitis vs CHF. Has been on multiple steroid tapers over the last couple months for concern for tx related pneumonitis. Reports SOB progressed as steroid taper decreased -CTA chest negative for pulmonary embolism. With interval development and enlargement of multiple soft tissue masses in the mid upper abdomen, retrocrural and periaortic region in addition to enlargement to new mediastinal and lower neck soft tissue masses. Of note does report that these masses were previously noted on CT chest from 05/01/2025 but are more conspicuous and have enlarged. - Mildly elevated serial troponins. BNP elevated at 7770. -Pulmonology following. Patient has been started on high-dose steroids, with Solu-Medrol 60 mg every 6 hours -Patient is also reporting since admit she has been experiencing episodes of tachycardia with associated chest pressure and dizziness. Cardiology has been consulted Metatstatic esophageal carcinoma -Diagnostic and therapeutic circumstances as described in consult. -Patient completed cycle 1 of taxol/cyramza on 06/02. Noted progression on CTA ch est, not consistent with tx failure. She has been off treatment and just restarted new treatment regimen on 06/02 -SOB symptoms persisting prior to treatment. Tx on hold until acute condition resolved
[2025-06-07 20:01] LABS: Glucose,Whole Blood 170 mg/dL (70-110)
[2025-06-07] MEDS: SYMBICORT 160-4.5 MCG INHALER INHALATION SCH (20:40)
[2025-06-07] MEDS: INSULIN LISPRO (HumaLOG) 100 UNIT/ML 10 mL VL SQ SCH (21:27)
--- NOTE | 2025-06-07 23:10 | P.CRDCN ---
History of Present Illness Consult date: 06/07/25 History of present illness: HISTORY OF PRESENTING ILLNESS: 69-year-old with past medical history of esophageal cancer on chemotherapy with Enhertu therapy thereafter developing interstitial pneumonitis. She initially presented on 05/01/2025 for increased worsening shortness of breath hypoxic respiratory failure. From cardiology perspective she got IV diuretics with [place] six and Aldactone This time she presents to the hospital because of increased worsening shortness of breath. Denies any chest pain chest pressure denies any palpitation. Denies any lightheadedness syncope episodes. During current hospitalization there was also concerns of possible atrial tachycardia versus SVT on telemetry which has subsided after she was given magnesium and potassium. Her magnesium was 1.7 potassium was 3.2. Her echo showed EF of 60%, no significant valvular dysfunction Chest x-ray from admission no significant consolidation congestion, Mediport in place CTA chest did not show any evidence of PE, interval development of multiple soft tissue mass in mid upper abdomen, periaortic region, diffuse parenchymal groundglass opacities with emphysematous changes, small pleural effusion BP 122/72, heart rate 72 bpm, Pertinent labs hemoglobin 14, BUN 26, creatinine 0.8, initial troponin was elevated at 0.11, repeat 0.14, repeat 0.16 On last admission she also had elevated troponin. EKG shows sinus rhythm right bundle branch block with nonspecific ST changes which are unchanged from prior exam ............................................................................ .................................................................. REVIEW OF SYSTEMS: 14 point review of system is negative except what is mentioned above in HPI. ..................................... ................................................................................ ......................... PHYSICAL EXAMINATION: Neck: Brisk carotid upstroke, no jugular venous distention. Lungs: On nasal cannula oxygen, crackles in rhonchi audible, mild wheezing audible. Heart: Regular rate and rhythm, S1-S2, , no murmur or rub. Abdomen: Soft nontender, positive bowel sounds. Extremities: No edema, intact distal pulses. Neuro: Alert, oritented, no focal deficits. Detailed neuro exam was not perf ormed. ................................................................................ .............................................................. ASSESSMENT: # Paroxysmal atrial tachycardia/SVT, currently subsided # Mild hypokalemia and hypomagnesemia # Elevated troponin, type II NSTEMI, more likely related to malignancy and demand supply mismatch # Esophageal cancer, stage IV # Interstitial pneumonitis due to Enhertu chemotherapy # Debility and frailty PLAN: Continue metoprolol 12.5 mg twice daily, Monitor electrolytes, keep potassium at 4 magnesium at 2, monitor telemetry She is on IV Lasix 40 twice daily. Continue today. Transition to p.o. Lasix 40 mg daily tomorrow She is on Eliquis at home. Will continue. I think she is on it because of history of DVT, hypercoagulability from her malignancy. Ethan Etienne MD, FACC, RPVI Past Medical History Past Medical History: Cancer, COPD, GERD/Reflux, Hyperlipidemia, Hypertension, Osteoarthritis (OA), Pneumonia, Thyroid Disorder Additional Past Medical History / Comment(s): OVARIAN CANCER (DX 02/2015) LAST CHEMO May 2025, IBS,CHRONIC BACK PAIN, HX OF BRONCHITIS. cancer reoccurence - mass in esophagus and liver History of Any Multi-Drug Resistant Organisms: None Reported Past Surgical History: Cholecystectomy, Hysterectomy, Orthopedic Surgery, Tubal Ligation Additional Past Surgical History / Comment(s): PORT-A-CATH RT CHEST(04/2015),and removal of port, COLONOSCOPY,. EXCISION LIPOMA FROM ABD. WALL. Total Hysterectomy. LT FEMUR x2. knee replacement 03/2021 Past Anesthesia/Blood Transfusion Reactions: No Reported Reaction Additional Past Anesthesia/Blood Transfusion Reaction / Comment(s): NO COMPLICATIONS WITH BLOOD TRANSFUSION. Past Psychological History: Anxiety Smoking Status: Former smoker Past Alcohol Use History: None Reported Additional Past Alcohol Use History / Comment(s): QUIT SMOKING 2004,STARTED 1984. SMOKED LESS THAN 1 PPD. DRINKS 3 PER WEEK, NO ALCOHOL IN THE LAST COUPLE WEEKS. Past Drug Use History: None Reported - Past Family History Mother Family Medical History: Cancer Additional Family Medical History / Comment(s): SQUAMOUS CELL CA-NECK. Father History Unknown: Yes Medications and Allergies Home Medications Medication Instructions Recorded Confirmed Type Levothyroxine Sodium [Synthroid] 88 mcg PO DAILY@0600 06/30/15 06/05/25 History Omeprazole 20 mg PO DAILY 06/30/15 06/05/25 History ALPRAZolam [Xanax] 0.25 mg PO BID PRN 07/31/17 06/05/25 History Pravastatin Sodium 80 mg PO HS 08/03/20 06/05/25 History Mirtazapine [Remeron] 15 mg PO HS 06/26/24 06/05/25 History Fluticasone Propion/Salmeterol 1 puff INHALATION RT-BID 05/01/25 06/05/25 History [Advair 250-50 Diskus] Magnesium Oxide [Mag-Ox] 400 mg PO DAILY 05/01/25 06/05/25 History Potassium Chloride ER [K-Dur 20] 20 meq PO DAILY 05/01/25 06/05/25 History Apixaban [Eliquis] 5 mg PO BID #60 tab 05/08/25 06/05/25 Rx Albuterol Nebulized [Ventolin 2.5 mg INHALATION RT-DAILY 06/05/25 06/05/25 History Nebulized] Albuterol Nebulized [Ventolin 2.5 mg INHALATION RT-TID PRN 06/05/25 06/05/25 History Nebulized] Furosemide [Lasix] 20 mg PO DAILY 06/05/25 06/05/25 History HYDROcodone/APAP 10-325MG [[place] 1 tab PO Q4H PRN 06/05/25 06/05/25 History 10-325] Metoprolol Tartrate [Lopressor] 12.5 mg PO BID 06/05/25 06/05/25 History predniSONE 60 mg PO DAILY 06/05/25 06/05/25 History Allergies Allergy/AdvReac Type Severity Reaction Status Date / Time amoxicillin Allergy Rash/Hives Verified 06/05/25 17:49 Physical Exam Vitals: Vital Signs Temp Pulse Pulse Resp BP Pulse Ox 06/07/25 21:30 20 93 L 06/07/25 21:25 20 89 L 06/07/25 20:48 72 18 06/07/25 20:40 69 18 06/07/25 19:46 98.2 F 65 20 112/72 96 06/07/25 16:00 76 18 100/67 96 06/07/25 14:00 18 06/07/25 12:23 95 18 114/77 96 06/07/25 11:34 100 06/07/25 11:21 90 06/07/25 08:36 98.2 F 98 18 113/77 90 L 06/07/25 08:08 84 06/07/25 07:52 71 99 06/07/25 04:00 98.2 F 78 18 110/65 95 06/07/25 00:00 69 18 121/68 97 Intake and Output 06/07/25 06/07/25 06/08/25 14:59 22:59 06:59 Intake Total 240 240 Output Total 200 850 Balance 40 -610 Intake: Oral 240 240 Output: Urine 200 850 Results 06/07/25 11:07 06/07/25 11:07 CBC 06/07/25 Range/Units 11:07 WBC 11.43 H (4.50-10.00) 10*3/uL RBC 4.32 (4.10-5.20) 10*6/uL Hgb 15.7 H (12.0-15.0) g/dL Hct 44.1 (37.2-46.3) % Plt Count 102 L (140-440) 10*3/uL Comprehensive Metabolic Panel 06/07/25 Range/Units 11:07 Sodium 137 (137-145) mmol/L Potassium 3.2 L (3.5-5.1) mmol/L Chloride 90 L (98-107) mmol/L Carbon Dioxide 38 H (22-30) mmol/L BUN 34 H (7-17) mg/dL Creatinine 0.71 (0.52-1.04) mg/dL Glucose 176 H (74-99) mg/dL Calcium 9.6 (8.4-10.2) mg/dL Current Medications Generic Name Dose Route Start Last Admin Trade Name Freq PRN Reason Stop Dose Admin Hydrocodone Bitart/Acetaminophen 1 each 06/05/25 19:24 06/07/25 18:36 Hydrocodone/Apap 10-325mg 1 Each Tab PO 1 each Q4H PRN Administration Moderate Pain (Scale 4 to 6) Albuterol/Ipratropium 3 ml 06/06/25 08:00 06/07/25 20:39 Ipratropium-Albuterol 3 Ml Neb INHALATION 3 ml RT-QID JOHN Administration Alprazolam 0.25 mg 06/05/25 19:24 06/07/25 21:24 Alprazolam 0.25 Mg Tab PO 0.25 mg BID PRN Administration Anxiety Apixaban 5 mg 06/05/25 21:00 06/07/25 21:24 Apixaban 5 Mg Tab PO 5 mg BID JOHN Administration Protocol Budesonide/Formoterol Fumarate 2 puff 06/07/25 20:00 06/07/25 20:40 Symbicort 160-4.5 Mcg Inhaler INHALATION 2 puff RT-BID JOHN Administration Furosemide 40 mg 06/08/25 09:00 Furosemide 40 Mg Tab PO DAILY JOHN Insulin Human Lispro 0 unit 06/07/25 21:12 06/07/25 21:27 Insulin Lispro (Humalog) 100 Unit/Ml 10 Ml Vl SQ 1 unit ACHS JOHN Administration Protocol Levothyroxine Sodium 88 mcg 06/06/25 06:00 06/07/25 06:16 Levothyroxine 88 Mcg Tab PO 88 mcg DAILY@0600 JOHN Administration Magnesium Oxide 400 mg 06/06/25 09:00 06/07/25 09:37 Magnesium Oxide 400 Mg Tab PO 400 mg DAILY JOHN Administration Methylprednisolone Sodium Succinate 60 mg 06/06/25 08:00 06/07/25 17:27 Methylprednisolone Sod Succi 125 Mg/2 Ml Vial IV 60 mg Q6HR JOHN Administration Metoprolol Tartrate 12.5 mg 06/05/25 21:00 06/07/25 21:24 Metoprolol Tartrate 12.5 Mg Tab PO 12.5 mg BID JOHN Administration Mirtazapine 15 mg 06/05/25 21:00 06/07/25 21:24 Mirtazapine 15 Mg Tab PO 15 mg HS JOHN Administration Miscellaneous Information 1 each 06/07/25 11:58 Potassium Replacement Protocol 1 Each Misc MISCELLANE DAILY PRN Per Protocol Protocol Miscellaneous Information 1 each 06/07/25 11:59 Magnesium Replacement Protocol 1 Each Misc MISCELLANE DAILY PRN Per Protocol Protocol Naloxone HCl 0.2 mg 06/05/25 19:17 Naloxone 0.4 Mg/Ml 1 Ml Vial IV Q2M PRN Opioid Reversal Pantoprazole Sodium 40 mg 06/06/25 07:30 06/07/25 06:16 Pantoprazole 40 Mg Tablet PO 40 mg AC-BRKFST JOHN Administration Potassium Chloride 20 meq 06/06/25 09:00 06/07/25 09:37 Potassium Chloride Er 20 Meq Tab.Er PO 20 meq DAILY JOHN Administration Pravastatin Sodium 80 mg 06/05/25 21:00 06/07/25 21:23 Pravastatin Sodium 80 Mg Tab PO 80 mg HS JOHN Administration Intake and Output 06/07/25 06/07/25 06/08/25 14:59 22:59 06:59 Intake Total 240 240 Output Total 200 850 Balance 40 -610 Intake: Oral 240 240 Output: Urine 200 850 06/07/25 11:07 06/07/25 11:07
[2025-06-08 06:01] LABS: Glucose,Whole Blood 146 mg/dL (70-110)
[2025-06-08] MEDS: FUROSEMIDE 40 MG TAB PO SCH (08:42)
--- NOTE | 2025-06-08 09:05 | P.PN ---
Subjective Progress Note Date: 06/07/25 Principal diagnosis: esogheal cancer, dyspnea, related to chemo therapy pt is awake alert vss afebrile Objective - Vital Signs Vital signs: Vital Signs Temp 97.6 F 06/08/25 04:00 Pulse 80 06/08/25 08:51 Resp 20 06/08/25 04:00 BP 135/81 06/08/25 04:00 Pulse Ox 92 L 06/08/25 04:00 FiO2 Intake & Output 06/07/25 06/08/25 06/08/25 18:59 06:59 18:59 Intake Total 480 Output Total 850 675 Balance -370 -675 Weight 47.1 kg Intake: Oral 480 Output: Urine 850 675 Other: Voiding Method External Catheter - Exam General: [Patient awake, alert and oriented times 3. Patient in no acute distress.] HEENT: [PERRL. EOMI. No pharyngeal erythema or exudate.] Neck: [No adenopathy.] Cardiac: [Heart regular in rate and rhythm. No S3. No S4. No clicks, rubs. No murmur.] Lungs: [Clear to auscultation bilaterally.] Abdomen: [No mass. No organomegaly. Bowel sounds presnt and normoactive in all 4 quadrants.] Extremes: [No edema no cyanosis no claudication normal pulses] : normal physical exam Musculoskeletal: [No joint erythema, edema or tenderness.] Skin: [No rash.] Neurologic: [No lateralizing deficits. CN II - XII grossly intact.] Lymphatic: [No adenopathy.] - Labs CBC & Chem 7: 06/07/25 11:07 06/07/25 11:07 Labs: Abnormal Lab Results - Last 24 Hours (Table) 06/07/25 06/07/25 06/07/25 Range/Units 11:07 11:07 19:57 WBC 11.43 H (4.50-10.00) 10*3/uL Hgb 15.7 H (12.0-15.0) g/dL MCV 102.1 H (80.0-97.0) fL MCH 36.3 H (27.0-32.0) pg Plt Count 102 L (140-440) 10*3/uL Immature Gran # 0.05 H (0.00-0.04) 10*3/uL Neutrophils # 10.64 H (1.80-7.70) 10*3/uL Lymphocytes # 0.48 L (0.90-5.00) 10*3/uL Eosinophils # 0.00 L (0.04-0.35) 10*3/uL Potassium 3.2 L (3.5-5.1) mmol/L Chloride 90 L (98-107) mmol/L Carbon Dioxide 38 H (22-30) mmol/L BUN 34 H (7-17) mg/dL Glucose 176 H (74-99) mg/dL POC Glucose (mg/dL) 170 H (70-110) mg/dL 06/08/25 Range/Units 05:58 WBC (4.50-10.00) 10*3/uL Hgb (12.0-15.0) g/dL MCV (80.0-97.0) fL MCH (27.0-32.0) pg Plt Count (140-440) 10*3/uL Immature Gran # (0.00-0.04) 10*3/uL Neutrophils # (1.80-7.70) 10*3/uL Lymphocytes # (0.90-5.00) 10*3/uL Eosinophils # (0.04-0.35) 10*3/uL Potassium (3.5-5.1) mmol/L Chloride (98-107) mmol/L Carbon Dioxide (22-30) mmol/L BUN (7-17) mg/dL Glucose (74-99) mg/dL POC Glucose (mg/dL) 146 H (70-110) mg/dL Assessment and Plan (1) Elevated troponin Current Visit: Yes Status: Acute Code(s): R77.8 - OTHER SPECIFIED ABNORMALITIES OF PLASMA PROTEINS SNOMED Code(s): 418621748 (2) Hypoxia Current Visit: Yes Status: Acute Code(s): R09.02 - HYPOXEMIA SNOMED Code(s): 429568350 (3) Pleural effusion Current Visit: Yes Status: Acute Code(s): J90 - PLEURAL EFFUSION, NOT ELSEWHERE CLASSIFIED SNOMED Code(s): 75399819 (4) Pulmonary fibrosis Current Visit: Yes Status: Acute Code(s): J84.10 - PULMONARY FIBROSIS, UNSPECIFIED SNOMED Code(s): 09673712 (5) Esophageal adenocarcinoma Current Visit: No Status: Chronic Priority: High Code(s): C15.9 - MAL IGNANT NEOPLASM OF ESOPHAGUS, UNSPECIFIED SNOMED Code(s): 495398137
[2025-06-08 11:34] LABS: African American GFR (CKD) 79 (>60 ml/min/1.73 sqM); Anion Gap 9 mmol/L; Blood Urea Nitrogen 43 mg/dL (7-17); Calcium 9.4 mg/dL (8.4-10.2); Carbon Dioxide 39 mmol/L (22-30); Chloride 90 mmol/L (98-107); Glucose 189 mg/dL (74-99); Magnesium 2.0 mg/dL (1.6-2.3); Non-African American GFR(CKD) 68 (>60 ml/min/1.73 sqM); Potassium 3.9 mmol/L (3.5-5.1); Sodium 138 mmol/L (137-145)
[2025-06-08 11:56] LABS: Glucose,Whole Blood 157 mg/dL (70-110)
--- NOTE | 2025-06-08 12:25 | US ---
Marking performed. EXAMINATION TYPE: US chest DATE OF EXAM: 06/08/2025 COMPARISON: CT & CXR CLINICAL INDICATION: Female, 69 years old with history of [place] for thoracentesis; SOB, Effusion TECHNIQUE: Grayscale imaging of the chest. Targeted ultrasound of the posterior lower bilateral edy thoraces FINDINGS: EXAM MEASUREMENTS: Right Pleural Effusion pocket size: No fluid visualized by ultrasound Left Pleural Effusion pocket size: 2.8 cm Right side NOT marked for possible thoracentesis outside the dept. Left side NOT marked for possible thoracentesis outside the dept- lung persistent in image and small fluid pocket. Pulmonologists are able to review the images in the patient?s EMR. IMPRESSIONS: Small left pleural effusion. Marking not performed. [facility], , 06/08/2025 12:23 PM
--- NOTE | 2025-06-08 13:17 | P.PN ---
Subjective Progress Note Date: 06/08/25 This is a pleasant 69-year-old with past medical history of esophageal cancer on chemotherapy with Enhertu therapy thereafter developing interstitial pneumonitis. She initially presented on 05/01/2025 for increased worsening shortness of breath hypoxic respiratory failure. From cardiology perspective she got IV diuretics with Lasix and Aldactone This time she presents to the hospital because of increased worsening shortness of breath. Denies any chest pain chest pressure denies any palpitation. Denies any lightheadedness syncope episodes. During current hospitalization there was also concerns of possible atrial tachycardia versus SVT on telemetry which has subsided after she was given magnesium and potassium. Her magnesium was 1.7 potassium was 3.2. Her echo showed EF of 60%, no significant valvular dysfunction Chest x-ray from admission no significant consolidation congestion, Mediport in place CTA chest did not show any evidence of PE, interval development of multiple soft tissue mass in mid upper abdomen, periaortic region, diffuse parenchymal groundglass opacities with emphysematous changes, small pleural effusion Pertinent labs hemoglobin 14, BUN 26, creatinine 0.8, initial troponin was elevated at 0.11, repeat 0.14, repeat 0.16 On last admission she also had elevated troponin. EKG shows sinus rhythm with moderate T wave abnormalities 06/08/2025 The patient was seen and examined resting comfortably in bed with family at bedside. Overall she is feeling a bit better. She is maintained on steroids and diuretics. PHYSICAL EXAMINATION: Neck: Brisk carotid upstroke, no jugular venous distention. Lungs: On nasal cannula oxygen, crackles and mild wheezing. Heart: Regular rate and rhythm, S1-S2, , no murmur or rub. Abdomen: Soft nontender, positive bowel sounds. Extremities: No edema, intact distal pulses. Neuro: Alert, oriented, no focal deficits. ASSESSMENT: 1 Paroxysmal atrial tachycardia/SVT, currently subsided 2 Mild hypokalemia and hypomagnesemia 3 Elevated troponin, type II NSTEMI, more likely related to malignancy and demand supply mismatch 4 Esophageal cancer, stage IV 5 Interstitial pneumonitis due to Enhertu chemotherapy 6 Debility and frailty PLAN: From cardiology's perspective medications were reviewed and we will continue the same. We will repeat the EKG in the morning. We will continue to follow the patient and provide further recommendations accordingly. BIOMEDICAL INSTRUMENT TECHNICIAN note has been reviewed, I agree with a documented findings and plan of care. Patient was seen and examined. Objective - Vital Signs Vital signs: Vital Signs Temp 97.6 F 06/08/25 04:00 Pulse 80 06/08/25 11:47 Resp 20 06/08/25 08:20 BP 132/80 06/08/25 08:20 Pulse Ox 96 06/08/25 08:20 FiO2 Intake & Output 06/07/25 06/08/25 06/08/25 18:59 06:59 18:59 Intake Total 480 Output Total 850 675 Balance -370 -675 Weight 47.1 kg Intake: Oral 480 Output: Urine 850 675 Other: Voiding Method External Catheter External Catheter - Labs CBC & Chem 7: 06/07/25 11:07 06/08/25 10:26 Labs: Abnormal Lab Results - Last 24 Hours (Table) 06/07/25 06/08/25 06/08/25 Range/Units 19:57 05:58 10:26 Chloride 90 L (98-107) mmol/L Carbon Dioxide 39 H (22-30) mmol/L BUN 43 H (7-17) mg/dL Glucose 189 H (74-99) mg/dL POC Glucose (mg/dL) 170 H 146 H (70-110) mg/dL 06/08/25 Range/Units 11:54 Chloride (98-107) mmol/L Carbon Dioxide (22-30) mmol/L BUN (7-17) mg/dL Glucose (74-99) mg/dL POC Glucose (mg/dL) 157 H (70-110) mg/dL
--- NOTE | 2025-06-08 13:59 | P.PN ---
Subjective Progress Note Date: 06/08/25 06/08/2025 this is a pleasant 69-year-old female recently hospitalized and treated for hypoxemia, suspected drug-induced Enhertu pneumonitis, discharged on 05/10/2025. Post discharge, received immunotherapy June 02, 2025-Taxol/Cyramza, returned back to the hospital with increasing hypoxemia-worsened with exertion, cough, congestion with tapering of her steroids. CTA ruled out PE, reported interval development and significant enlargement of multiple soft tissue masses in the mid upper abdomen, retrocrural and periaortic region in addition to enlargement and new mediastinal and lower neck soft tissue masses. Diffuse parenchymal groundglass changes superimposed on of somatic lungs may represent pulmonary edema versus fibrotic lung disease. Small left and trace right pleural effusions. Chest x-ray reported diffuse interstitial prominence suspicious for interstitial lung disease versus atypical pneumonia. Procalcitonin within normal limits. BNP 7770. maintained on nebulized bronchodilators, IV steroids and Symbicort. diuretics transitioned to oral. oxygen titrated down to 8 L high flow nasal cannula. Afebrile. Chest ultrasound pending. Telemetry sinus rhythm. Objective - Vital Signs Vital signs: Vital Signs Temp 97.6 F 06/08/25 04:00 Pulse 80 06/08/25 09:02 Resp 20 06/08/25 04:00 BP 135/81 06/08/25 04:00 Pulse Ox 92 L 06/08/25 04:00 FiO2 Intake & Output 06/07/25 06/08/25 06/08/25 18:59 06:59 18:59 Intake Total 480 Output Total 850 675 Balance -370 -675 Weight 47.1 kg Intake: Oral 480 Output: Urine 850 675 Other: Voiding Method External Catheter - Exam GENERAL: Fatigued,Alert and oriented x 3,sitting up in bed, NAD, HEAD: Atraumatic, normocephalic. NECK: Supple, no JVD LUNGS: Equal air entry, bibasilar crackles. HEART: S1 S2. Regular rate and rhythm. ABDOMEN: Soft, nondistended, nontender,no guarding. Positive bowel sounds EXTREMITIES:no edema. No clubbing or cyanosis. Peripheral pulses intact. NEUROLOGICAL: Cranial nerves II through XII grossly intact. No focal deficits. SKIN: Warm, Dry, no rashes noted. - Labs CBC & Chem 7: 06/07/25 11:07 07/14/25 10:26 Labs: Abnormal Lab Results - Last 24 Hours (Table) 06/07/25 06/07/25 06/07/25 Range/Units 11:07 11:07 19:57 WBC 11.43 H (4.50-10.00) 10*3/uL Hgb 15.7 H (12.0-15.0) g/dL MCV 102.1 H (80.0-97.0) fL MCH 36.3 H (27.0-32.0) pg Plt Count 102 L (140-440) 10*3/uL Immature Gran # 0.05 H (0.00-0.04) 10*3/uL Neutrophils # 10.64 H (1.80-7.70) 10*3/uL Lymphocytes # 0.48 L (0.90-5.00) 10*3/uL Eosinophils # 0.00 L (0.04-0.35) 10*3/uL Potassium 3.2 L (3.5-5.1) mmol/L Chloride 90 L (98-107) mmol/L Carbon Dioxide 38 H (22-30) mmol/L BUN 34 H (7-17) mg/dL Glucose 176 H (74-99) mg/dL POC Glucose (mg/dL) 170 H (70-110) mg/dL 06/08/25 Range/Units 05:58 WBC (4.50-10.00) 10*3/uL Hgb (12.0-15.0) g/dL MCV (80.0-97.0) fL MCH (27.0-32.0) pg Plt Count (140-440) 10*3/uL Immature Gran # (0.00-0.04) 10*3/uL Neutrophils # (1.80-7.70) 10*3/uL Lymphocytes # (0.90-5.00) 10*3/uL Eosinophils # (0.04-0.35) 10*3/uL Potassium (3.5-5.1) mmol/L Chloride (98-107) mmol/L Carbon Dioxide (22-30) mmol/L BUN (7-17) mg/dL Glucose (74-99) mg/dL POC Glucose (mg/dL) 146 H (70-110) mg/dL Assessment and Plan Assessment: Acute hypoxic respiratory failure. CTA ruled out PE, reported interval development and significant enlargement of multiple soft tissue masses in the mid upper abdomen, retrocrural and periaortic region in addition to enlargement and new mediastinal and lower neck soft tissue masses. Diffuse parenchymal groundglass changes superimposed on of somatic lungs may represent pulmonary edema versus fibrotic lung disease. Small left and trace right pleural effusions. Procalcitonin within normal limits. Pneumonitis secondary to immunotherapy as per pulmonary's review of imaging ,recent immunotherapy on 06/02/2025-received Taxol/Cyramza. Recently treated inpatient for hypoxemia and suspect [id number] ,pneumonitis, discharged on 05/10/25. Paroxysmal atrial tachycardia, SVT Chronic paroxysmal atrial fibrillation Metastatic esophageal cancer, Enhertu chemo recently discontinued. New treatment restarted on 06/02/2025 Posterior retrocrural and lower paraesophageal masses, some enlarged lymphadenopathy within the mediastinum reported per CTA on prior visit 05/20 Chronic CHF exacerbation, diastolic dysfunction, EF 55 to 60%, ruled out as per cardiology and pulmonary. COPD History of ovarian cancer status post resection and chemotherapy Former nicotine dependence Hypothyroidism Hypertension .....and multiple other medical issues. Plan: Continue on current medication regimen ,monitoring and symptomatic treatment. Chest ultrasound pending. aggressive pulmonary toileting, maintain n ebulized bronchodilators, steroids, Symbicort, diuretics. Pulmonary, cardiology and oncology following. Prognosis guarded given multiple complex medical issues. The impression and plan of care has been dictated as directed. : I performed a history and examination of this patient, discussed the same with the dictator. I agree with the dictator's note ,documented as a scribe. Any additional findings or plans will be noted.
[2025-06-08 16:33] LABS: Glucose,Whole Blood 236 mg/dL (70-110)
--- NOTE | 2025-06-08 16:34 | P.PN ---
Subjective Progress Note Date: 06/08/25 Ms. Real is a 69-year-old female with multiple comorbidities including history of ovarian cancer status post resection and chemotherapy. In 02/16, she was diagnosed with distal esophageal cancer, metastatic, and was started on palliative chemotherapy with FOLFOX and Herceptin completing 9 cycles. Due to intolerance, her regimen was changed to Herceptin and 5FU infusion only. The patient was subsequently changed to Enhertu on progression. She was on the same till about 03/20, at which time she developed progressive shortness of breath. She had CT scans of the chest done in the [facility] system, most recently in 03/20, that were concerning for pneumonitis, showing bilateral infiltrative changes and groundglass opacities, more prominent in the lung apices. As this is a known side effect of her regimen, that was discontinued, and the patient was placed on steroids. She completed her steroid taper in late 04/19, with improvement in her respiratory complaints. The patient's subsequent imaging had shown evidence of progression, and the plan was to change her to Taxol and Cyramza, with cycle 1 being delayed r/t admission last month for SOB, felt to be r/t to pneumonitis r/t Enhertu. She was treated again with steroid taper. Pt states SOB was initially improving on higher dose steroids but SOB progressed as the taper decreased. She had cycle 1 of cyramza/taxol on 06/02. She states that since she has been experiencing shortness of breath and hypoxia that caused her to present to the emergency room for further evaluation. She was seen by her manager exchange, which there was possible concern for collapsed lung?. Upon admit repeat chest x-ray did not show any evidence of pneumothorax. CTA chest negative for pulmonary embolism. With interval development and enlargement of multiple soft tissue masses in the mid upper abdomen, retrocrural and periaortic region in addition to enlargement to new mediastinal and lower neck soft tissue masses. Of note does report that these masses were previously noted on CT chest from 05/01/2025 but are more conspicuous and have enlarged. Patient was also found to have mildly elevated serial troponins. BNP elevated at 7770. Elevated LFTs, bilirubin 1.2. WBC 8.9, hemoglobin 14.9, platelets 81,000. Creatinine 0.80, GFR 76. Pulmonology is following. Patient has been started on high-dose steroids, with Solu-Medrol 60 mg every 6 hours. Patient is also reporting since admit she has been experiencing episodes of tachycardia with associated chest pressure and dizziness. Cardiology has been consulted On 06/08/2025, the patient is being seen for a follow-up. The patient was hospitalized for worsening shortness of breath and hypoxemic respiratory failure. She is known to have metastatic esophageal cancer, details as discussed earlier and the patient is suspected to have acute pneumonitis related to Enhertu treatment. Based on that, the treatment was discontinued the patient was subjected to the higher dose prednisone. She was discharged home on 70 mg of prednisone and she was being gradually tapered down by 10 mg every week and she was down to 40 mg. By then, she had progressive worsening in oxygenation and shortness of breath and she was brought into the hospital for hypoxia as per the failure because she is on 10 L of oxygen by nasal cannula. Noted, the patient was given a combination of Taxol and Cyramza post her discharge. Oncology is on the case. The patient is calm and comfortable. This morning, she is on 8 L of oxygen by nasal cannula. I reviewed the CTA of the chest and it shows diffuse pneumonitis and there is also development of a small to moderate size left-sided pleural effusion. The patient is currently on IV Solu- Medrol. The BUN is 43 with a creatinine of 0.88 and a sodium levels at 138 and a potassium level of 3.9. She is currently on NovoLog sliding scale coverage for blood sugar control. She is also on anticoagulation with Eliquis. No altered mentation. Family at the bedside. Her cardiac rhythm is sinus with a left anterior fascicular block. Objective - Vital Signs Vital signs: Vital Signs Temp 97.6 F 06/08/25 04:00 Pulse 80 06/08/25 09:02 Resp 20 06/08/25 08:20 BP 132/80 06/08/25 08:20 Pulse Ox 96 06/08/25 08:20 FiO2 Intake & Output 06/07/25 06/08/25 06/08/25 18:59 06:59 18:59 Intake Total 480 Output Total 850 675 Balance -370 -675 Weight 47.1 kg Intake: Oral 480 Output: Urine 850 675 Other: Voiding Method External Catheter External Catheter - Exam The patient appeared well nourished and normally developed. Vital signs as documented. The patient is anxious. The patient is currently on 8 L of O2 nasal cannula. Head exam is unremarkable. No scleral icterus or corneal arcus noted. Neck is without jugular venous distension, thyromegaly, or carotid bruits. Carotid upstrokes are brisk bilaterally. Lungs are clear to auscultation and percussion. Crackles are somewhat coarse in the midline lower lung pearl bilaterally. Cardiac exam reveals the PMI to be normally sized and situated. Rhythm is regular. First and second heart sounds normal. No murmurs, rubs or gallops. Abdominal exam reveals normal bowel sounds, no masses, no organomegaly and no aortic enlargement. Extremities are nonedematous and both femoral and pedal pulses are normal. Examination of the skin revealed no evidence of significant rashes, suspicious appearing nevi or other concerning lesions. Neurologically, the patient is awake and alert and the patient does not have any focal neurological deficit. Cranial nerves are essentially intact. - Labs CBC & Chem 7: 06/07/25 11:07 06/08/25 10:26 Labs: Abnormal Lab Results - Last 24 Hours (Table) 06/07/25 06/07/25 06/07/25 Range/Units 11:07 11:07 19:57 WBC 11.43 H (4.50-10.00) 10*3/uL Hgb 15.7 H (12.0-15.0) g/dL MCV 102.1 H (80.0-97.0) fL MCH 36.3 H (27.0-32.0) pg Plt Count 102 L (140-440) 10*3/uL Immature Gran # 0.05 H (0.00-0.04) 10*3/uL Neutrophils # 10.64 H (1.80-7.70) 10*3/uL Lymphocytes # 0.48 L (0.90-5.00) 10*3/uL Eosinophils # 0.00 L (0.04-0.35) 10*3/uL Potassium 3.2 L (3.5-5.1) mmol/L Chloride 90 L (98-107) mmol/L Carbon Dioxide 38 H (22-30) mmol/L BUN 34 H (7-17) mg/dL Glucose 176 H (74-99) mg/dL POC Glucose (mg/dL) 170 H (70-110) mg/dL 06/08/25 Range/Units 05:58 WBC (4.50-10.00) 10*3/uL Hgb (12.0-15.0) g/dL MCV (80.0-97.0) fL MCH (27.0-32.0) pg Plt Count (140-440) 10*3/uL Immature Gran # (0.00-0.04) 10*3/uL Neutrophils # (1.80-7.70) 10*3/uL Lymphocytes # (0.90-5.00) 10*3/uL Eosinophils # (0.04-0.35) 10*3/uL Potassium (3.5-5.1) mmol/L Chloride (98-107) mmol/L Carbon Dioxide (22-30) mmol/L BUN (7-17) mg/dL Glucose (74-99) mg/dL POC Glucose (mg/dL) 146 H (70-110) mg/dL Assessment and Plan Plan: Acute hypoxic respiratory failure, currently requiring 8 L of high flow oxygen by nasal cannula. CT angiogram ruled out pulmonary embolism. There is interval development and significant enlargement of multiple soft tissue masses in the mid upper abdomen, retrocrural and periaortic region in addition to enlargement and new mediastinal and lower neck soft tissue masses. Diffuse parenchymal groundglass changes, in addition to a small left-sided pleural effusion that was not present on earlier CAT scan of the chest. Findings are still consistent with diffuse drug-induced pneumonitis probably related to Enhertu treatment but the patient received earlier for treatment of metastatic esophageal cancer. 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 Suspect Enhertu related pneumonitis. There has been obvious decompensation of respiratory status with the tapering dose of prednisone. Acute on chronic shortness of breath secondary to above. Metastatic esophageal cancer with development of esophageal and mediastinal lymphadenopathy. The patient was recently given a combination of Taxol and Cyramza on outpatient basis. COPD. Elevated troponin, type II NSTEMI, more likely related to malignancy and demand supply mismatch History of ovarian cancer. Chronic anxiety. Chronic back pain. Hypertension. Hyperlipidemia. Former smoker. Plan: Continue monitoring the patient's oxygenation currently on 8 L of O2 by nasal cannula Continue IV Solu-Medrol Obtain ultrasound of the chest to evaluate the size and the feasibility of doing a thoracentesis of the left lung NovoLog sliding scale as insulin coverage for blood sugar control Continue anticoagulation with Eliquis Case was discussed with medical oncology and with the family at the bedside. Time with Patient: Greater than 30
--- NOTE | 2025-06-08 18:14 | P.PN ---
Subjective Progress Note Date: 06/08/25 Objective - Vital Signs Vital signs: Vital Signs Temp 98.0 F 06/08/25 12:00 Pulse 86 06/08/25 12:00 Resp 18 06/08/25 12:00 BP 101/69 06/08/25 12:00 Pulse Ox 92 L 06/08/25 12:00 FiO2 Intake & Output 06/07/25 06/08/25 06/08/25 18:59 06:59 18:59 Intake Total 480 Output Total 850 675 Balance -370 -675 Weight 47.1 kg Intake: Oral 480 Output: Urine 850 675 Other: Voiding Method External Catheter External Catheter - Labs CBC & Chem 7: 06/07/25 11:07 06/08/25 10:26 Labs: Abnormal Lab Results - Last 24 Hours (Table) 06/07/25 06/08/25 06/08/25 Range/Units 19:57 05:58 10:26 Chloride 90 L (98-107) mmol/L Carbon Dioxide 39 H (22-30) mmol/L BUN 43 H (7-17) mg/dL Glucose 189 H (74-99) mg/dL POC Glucose (mg/dL) 170 H 146 H (70-110) mg/dL 06/08/25 Range/Units 11:54 Chloride (98-107) mmol/L Carbon Dioxide (22-30) mmol/L BUN (7-17) mg/dL Glucose (74-99) mg/dL POC Glucose (mg/dL) 157 H (70-110) mg/dL Assessment and Plan (1) Hypoxia Current Visit: Yes Status: Acute Priority: High Code(s): R09.02 - HYPOXEMIA SNOMED Code(s): 116961882 (2) Esophageal adenocarcinoma Current Visit: Yes Status: Chronic Priority: Medium Code(s): C15.9 - MALIGNANT NEOPLASM OF ESOPHAGUS, UNSPECIFIED SNOMED Code(s): 679613707 Plan: SOB -CTA negative for PE. With interval development and enlargement of multiple soft tissue masses in the mid upper abdomen, retrocrural and periaortic region in addition to enlargement to new mediastinal and lower neck soft tissue masses. Pt just started on new treatment regimen. -Pulmonology following. Discussed with Pulm. Patient has been started on high- dose steroids, with Solu-Medrol 60 mg every 6 hours. Pt doing much better. -Patient is also reporting since admit she has been experiencing episodes of tachycardia with associated chest pressure and dizziness. Cardiology has been consulted Metatstatic esophageal carcinoma -Diagnostic and therapeutic circumstances as described in consult. -Patient completed cycle 1 of taxol/cyramza on 06/02. Noted progression on CTA chest, not consistent with tx failure. She has been off treatment and just restarted new treatment regimen on 06/02 -SOB symptoms persisting prior to treatment. Tx on hold until acute condition resolved Doctor attests: I performed a history and physical examination of this patient, developed impression and plan of care. Discussed with dictator. I agree with dictators note, documented as a scribe.
[2025-06-08 20:01] LABS: Glucose,Whole Blood 140 mg/dL (70-110)
[2025-06-09 06:00] LABS: Glucose,Whole Blood 149 mg/dL (70-110)
[2025-06-09] MEDS: METOPROLOL TARTRATE 25 MG TAB PO SCH (08:45)
--- NOTE | 2025-06-09 09:14 | P.PN ---
Subjective Progress Note Date: 06/09/25 This is a pleasant 69-year-old with past medical history of esophageal cancer on chemotherapy with Enhertu therapy thereafter developing interstitial pneumonitis. She initially presented on 05/01/2025 for increased worsening shortness of breath hypoxic respiratory failure. From cardiology perspective she got IV diuretics with Lasix and Aldactone This time she presents to the hospital because of increased worsening shortness of breath. Denies any chest pain chest pressure denies any palpitation. Denies any lightheadedness syncope episodes. During current hospitalization there was also concerns of possible atrial tachycardia versus SVT on telemetry which has subsided after she was given magnesium and potassium. Her magnesium was 1.7 potassium was 3.2. Her echo showed EF of 60%, no significant valvular dysfunction Chest x-ray from admission no significant consolidation congestion, Mediport in place CTA chest did not show any evidence of PE, interval development of multiple soft tissue mass in mid upper abdomen, periaortic region, diffuse parenchymal groundglass opacities with emphysematous changes, small pleural effusion Pertinent labs hemoglobin 14, BUN 26, creatinine 0.8, initial troponin was elevated at 0.11, repeat 0.14, repeat 0.16 On last admission she also had elevated troponin. EKG shows sinus rhythm with moderate T wave abnormalities 06/08/2025 The patient was seen and examined resting comfortably in bed with family at bedside. Overall she is feeling a bit better. She is maintained on steroids and diuretics. 06/09/2025 Patient was seen and examined sitting up eating breakfast. Her breathing has been stable. She has had occasional palpitations. Complains of heartburn. Continues on diuretics and steroids. PHYSICAL EXAMINATION: Neck: Brisk carotid upstroke, no jugular venous distention. Lungs: On nasal cannula oxygen, crackles and mild wheezing. Heart: Regular rate and rhythm, S1-S2, , no murmur or rub. Abdomen: Soft nontender, positive bowel sounds. Extremities: No edema, intact distal pulses. Neuro: Alert, oriented, no focal deficits. 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 twice daily. Awaiting EKG from this morning. We will continue to follow the patient and provide further recommendations accordingly. AUTOMATIC MACHINE ATTENDANT note has been reviewed, I agree with a documented findings and plan of care. Patient was seen and examined. Objective - Vital Signs Vital signs: Vital Signs Temp 97.6 F 06/09/25 08:20 Pulse 82 06/09/25 08:20 Resp 20 06/09/25 08:20 BP 110/71 06/09/25 08:20 Pulse Ox 91 L 06/09/25 08:20 FiO2 Intake & Output 06/08/25 06/09/25 06/09/25 18:59 06:59 18:59 Intake Total 200 260 Output Total 550 150 Balance -550 50 260 Weight 47.1 kg 48.5 kg Intake: Oral 200 260 Output: Urine 550 150 Other: Voiding Method External Catheter External Catheter - Labs CBC & Chem 7: 06/07/25 11:07 06/08/25 10:26 Labs: Abnormal Lab Results - Last 24 Hours (Table) 06/08/25 06/08/25 06/08/25 Range/Units 10:26 11:54 16:32 Chloride 90 L (98-107) mmol/L Carbon Dioxide 39 H (22-30) mmol/L BUN 43 H (7-17) mg/dL Glucose 189 H (74-99) mg/dL POC Glucose (mg/dL) 157 H 236 H (70-110) mg/dL 06/08/25 06/09/25 Range/Units 20:00 05:59 Chloride (98-107) mmol/L Carbon Dioxide (22-30) mmol/L BUN (7-17) mg/dL Glucose (74-99) mg/dL POC Glucose (mg/dL) 140 H 149 H (70-110) mg/dL
[2025-06-09 11:23] LABS: Glucose,Whole Blood 200 mg/dL (70-110)
--- NOTE | 2025-06-09 13:42 | P.PN ---
Subjective Progress Note Date: 06/09/25 Ms. Real is a 69-year-old female with multiple comorbidities including history of ovarian cancer status post resection and chemotherapy. In 02/16, she was diagnosed with distal esophageal cancer, metastatic, and was started on palliative chemotherapy with FOLFOX and Herceptin completing 9 cycles. Due to intolerance, her regimen was changed to Herceptin and 5FU infusion only. The patient was subsequently changed to Enhertu on progression. She was on the same till about 03/20, at which time she developed progressive shortness of breath. She had CT scans of the chest done in the [facility] system, most recently in 03/20, that were concerning for pneumonitis, showing bilateral infiltrative changes and groundglass opacities, more prominent in the lung apices. As this is a known side effect of her regimen, that was discontinued, and the patient was placed on steroids. She completed her steroid taper in late 04/19, with improvement in her respiratory complaints. The patient's subsequent imaging had shown evidence of progression, and the plan was to change her to Taxol and Cyramza, with cycle 1 being delayed r/t admission last month for SOB, felt to be r/t to pneumonitis r/t Enhertu. She was treated again with steroid taper. Pt states SOB was initially improving on higher dose steroids but SOB progressed as the taper decreased. She had cycle 1 of cyramza/taxol on 06/02. She states that since she has been experiencing shortness of breath and hypoxia that caused her to present to the emergency room for further evaluation. She was seen by her bending frame operator, which there was possible concern for collapsed lung?. Upon admit repeat chest x-ray did not show any evidence of pneumothorax. CTA chest negative for pulmonary embolism. With interval development and enlargement of multiple soft tissue masses in the mid upper abdomen, retrocrural and periaortic region in addition to enlargement to new mediastinal and lower neck soft tissue masses. Of note does report that these masses were previously noted on CT chest from 05/01/2025 but are more conspicuous and have enlarged. Patient was also found to have mildly elevated serial troponins. BNP elevated at 7770. Elevated LFTs, bilirubin 1.2. WBC 8.9, hemoglobin 14.9, platelets 81,000. Creatinine 0.80, GFR 76. Pulmonology is following. Patient has been started on high-dose steroids, with Solu-Medrol 60 mg every 6 hours. Patient is also reporting since admit she has been experiencing episodes of tachycardia with associated chest pressure and dizziness. Cardiology has been consulted On 06/08/2025, the patient is being seen for a follow-up. The patient was hospitalized for worsening shortness of breath and hypoxemic respiratory failure. She is known to have metastatic esophageal cancer, details as discussed earlier and the patient is suspected to have acute pneumonitis related to Enhertu treatment. Based on that, the treatment was discontinued the patient was subjected to the higher dose prednisone. She was discharged home on 70 mg of prednisone and she was being gradually tapered down by 10 mg every week and she was down to 40 mg. By then, she had progressive worsening in oxygenation and shortness of breath and she was brought into the hospital for hypoxia as per the failure because she is on 10 L of oxygen by nasal cannula. Noted, the patient was given a combination of Taxol and Cyramza post her discharge. Oncology is on the case. The patient is calm and comfortable. This morning, she is on 8 L of oxygen by nasal cannula. I reviewed the CTA of the chest and it shows diffuse pneumonitis and there is also development of a small to moderate size left-sided pleural effusion. The patient is currently on IV Solu- Medrol. The BUN is 43 with a creatinine of 0.88 and a sodium levels at 138 and a potassium level of 3.9. She is currently on NovoLog sliding scale coverage for blood sugar control. She is also on anticoagulation with Eliquis. No altered mentation. Family at the bedside. Her cardiac rhythm is sinus with a left anterior fascicular block. On today's evaluation of 06/09/2025, the patient is being seen for a follow-up. Clinically stable and the patient has no interval worsening shortness of breath. She is currently on IV Solu-Medrol for drug-induced pneumonitis and the patient is currently on 7 L of O2 by nasal cannula. Her cardiac rhythm is sinus. She remains on IV Solu-Medrol 60 mg every 6 hours. She is also on anticoagulation with Eliquis 5 mg p.o. twice a day. She is on metoprolol 25 mg twice a day. Rest of her medications are essentially unchanged. The blood work shows a blood sugar of 200. BUN was 43 and a creatinine of 0.8 from yesterday. Awake and alert and communicating. No other significant events overnight. She will be provided incentive spirometer. Will also consult physical therapy. Objective - Vital Signs Vital signs: Vital Signs Temp 97.6 F 06/09/25 08:20 Pulse 82 06/09/25 08:20 Resp 20 06/09/25 08:20 BP 110/71 06/09/25 08:20 Pulse Ox 91 L 06/09/25 08:20 FiO2 Intake & Output 06/08/25 06/09/25 06/09/25 18:59 06:59 18:59 Intake Total 200 260 Output Total 550 150 Balance -550 50 260 Weight 47.1 kg 48.5 kg Intake: Oral 200 260 Output: Urine 550 150 Other: Voiding Method External Catheter External Catheter - Exam The patient appeared well nourished and normally developed. Vital signs as documented. The patient is anxious. The patient is currently on 7 L of O2 nasal cannula. Head exam is unremarkable. No scleral icterus or corneal arcus noted. Neck is without jugular venous distension, thyromegaly, or carotid bruits. Carotid upstrokes are brisk bilaterally. Lungs are clear to auscultation and percussion. Crackles are somewhat coarse in the midline lower lung pearl bilaterally. Cardiac exam reveals the PMI to be normally sized and situated. Rhythm is regular. First and second heart sounds normal. No murmurs, rubs or gallops. Abdominal exam reveals normal bowel sounds, no masses, no organomegaly and no aortic enlargement. Extremities are nonedematous and both femoral and pedal pulses are normal. Examination of the skin revealed no evidence of significant rashes, suspicious appearing nevi or other concerning lesions. Neurologically, the patient is awake and alert and the patient does not have any focal neurological deficit. Cranial nerves are essentially intact. - Labs CBC & Chem 7: 06/07/25 11:07 06/08/25 10:26 Labs: Abnormal Lab Results - Last 24 Hours (Table) 06/08/25 06/08/25 06/08/25 Range/Units 10:26 11:54 16:32 Chloride 90 L (98-107) mmol/L Carbon Dioxide 39 H (22-30) mmol/L BUN 43 H (7-17) mg/dL Glucose 189 H (74-99) mg/dL POC Glucose (mg/dL) 157 H 236 H (70-110) mg/dL 06/08/25 06/09/25 Range/Units 20:00 05:59 Chloride (98-107) mmol/L Carbon Dioxide (22-30) mmol/L BUN (7-17) mg/dL Glucose (74-99) mg/dL POC Glucose (mg/dL) 140 H 149 H (70-110) mg/dL Assessment and Plan Plan: Acute hypoxic respiratory failure, currently requiring 7 L of high flow oxygen by nasal cannula. CT angiogram ruled out pulmonary embolism. There is interval development and significant enlargement of multiple soft tissue masses in the mid upper abdomen, retrocrural and periaortic region in addition to enlargement and new mediastinal and lower neck soft tissue masses. Diffuse parenchymal groundglass changes, in addition to a small left-sided pleural effusion that was not present on earlier CAT scan of the chest. Findings are still consistent with diffuse drug-induced pneumonitis probably related to Enhertu treatment but the patient received earlier for treatment of metastatic esophageal cancer. The patient's oxygenation is gradually improving while being on systemic steroids. Ultrasound the chest was done and the patient has no sizable effusion that would benefit from thoracentesis. No ultrasound markings are been obtained. 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 Suspect Enhertu related pneumonitis. There has been obvious decompensation of respiratory status with the tapering dose of prednisone. Acute on chronic shortness of breath secondary to above. Metastatic esophageal cancer with development of esophageal and mediastinal lymphadenopathy. The patient was recently given a combination of Taxol and Cyramza on outpatient basis. COPD. Elevated troponin, type II NSTEMI, more likely related to malignancy and demand supply mismatch History of ovarian cancer. Chronic anxiety. Chronic back pain. Hypertension. Hyperlipidemia. Former smoker. Plan: Continue monitoring the patient's oxygenation currently on 7 L of O2 by nasal cannula Continue IV Solu-Medrol 60 mg every 6 hours Provide incentive spirometer Physical therapy Ultrasound of the chest was done and there is no sizable effusion on the left. NovoLog sliding scale as insulin coverage for blood sugar control Continue anticoagulation with Eliquis Case was discussed with medical oncology and with the family at the bedside.
[2025-06-09] MEDS: PANTOPRAZOLE 40 MG/10 ML VIAL IVP ONE (14:15)
--- NOTE | 2025-06-09 14:40 | P.PN ---
Subjective Progress Note Date: 06/09/25 06/08/2025 this is a pleasant 69-year-old female recently hospitalized and treated for hypoxemia, suspected drug-induced Enhertu pneumonitis, discharged on 05/10/2025. Received immunotherapy June 02, 2025, returned back to the hospital with increasing hypoxemia-worsened with exertion, cough, congestion. CTA ruled out PE, reported interval development and significant enlargement of multiple soft tissue masses in the mid upper abdomen, retrocrural and periaortic region in addition to enlargement and new mediastinal and lower neck soft tissue masses. Diffuse parenchymal groundglass changes superimposed on of somatic lungs may represent pulmonary edema versus fibrotic lung disease. Small left and trace right pleural effusions. Chest x-ray reported diffuse interstitial prominence suspicious for interstitial lung disease versus atypical pneumonia. Procalcitonin within normal limits. BNP 7770. maintained on nebulized bronchodilators, IV steroids and Symbicort. diuretics transitioned to oral. ox ygen titrated down to 8 L high flow nasal cannula. Afebrile. Chest ultrasound pending. 06/09/2025 chest ultrasound completed yesterday reporting right and left side not marked for possible thoracentesis-left pleural effusion pocket size 2.8 cm. Maintained on Symbicort, IV steroids, nebulized bronchodilators and oral diuretic. oxygen titrated down to 7 L, maintaining O2 sats in the low 90s. Blo od sugars controlled .telemetry sinus rhythm. Complaining of heartburn, occasional palpitations. Metoprolol increased. EKG pending. Objective - Vital Signs Vital signs: Vital Signs Temp 97.6 F 06/09/25 08:20 Pulse 82 06/09/25 08:20 Resp 20 06/09/25 08:20 BP 110/71 06/09/25 08:20 Pulse Ox 91 L 06/09/25 08:20 FiO2 Intake & Output 06/08/25 06/09/25 06/09/25 18:59 06:59 18:59 Intake Total 200 260 Output Total 550 150 Balance -550 50 260 Weight 47.1 kg 48.5 kg Intake: Oral 200 260 Output: Urine 550 150 Other: Voiding Method External Catheter External Catheter - Exam GENERAL: Sitting up in bed,Alert and oriented x 3, NAD, HEAD: Atraumatic, normocephalic. NECK: Supple, no JVD LUNGS: Equal air entry, occasional expiratory wheeze, bibasilar crackles. HEART: S1 S2. Regular rate and rhythm. ABDOMEN: Soft, nondistended, nontender,no guarding. Positive bowel sounds EXTREMITIES:no edema. No clubbing or cyanosis. Peripheral pulses intact. NEUROLOGICAL: Cranial nerves II through XII grossly intact. No focal deficits. SKIN: Warm, Dry, no rashes noted. - Labs CBC & Chem 7: 06/11/25 09:54 06/11/25 09:54 Labs: Abnormal Lab Results - Last 24 Hours (Table) 06/08/25 06/08/25 06/08/25 Range/Units 10:26 11:54 16:32 Chloride 90 L (98-107) mmol/L Carbon Dioxide 39 H (22-30) mmol/L BUN 43 H (7-17) mg/dL Glucose 189 H (74-99) mg/dL POC Glucose (mg/dL) 157 H 236 H (70-110) mg/dL 06/08/25 06/09/25 Range/Units 20:00 05:59 Chloride (98-107) mmol/L Carbon Dioxide (22-30) mmol/L BUN (7-17) mg/dL Glucose (74-99) mg/dL POC Glucose (mg/dL) 140 H 149 H (70-110) mg/dL Assessment and Plan Assessment: Acute hypoxic respiratory failure. CTA ruled out PE, reported interval development and significant enlargement of multiple soft tissue masses in the mid upper abdomen, retrocrural and periaortic region in addition to enlargement and new mediastinal and lower neck soft tissue masses. Diffuse parenchymal groundglass changes superimposed on of somatic lungs may represent pulmonary edema versus fibrotic lung disease. Small left and trace right pleural effusions. Procalcitonin within normal limits.per pulmonary's review of imaging, still consistent with diffuse drug-induced pneumonitis probably related to previous Enhertu treatment. Recent immunotherapy on 06/02/2025 Recently treated inpatient for hypoxemia and suspected [id number] ,pneumonitis, discharged on 05/10/25. Paroxysmal atrial tachycardia, SVT Chronic paroxysmal atrial fibrillation Metastatic esophageal cancer, Enhertu chemo recently discontinued. New treatment restarted on 06/02/2025 Posterior retrocrural and lower paraesophageal masses, some enlarged lymphadenopathy within the mediastinum reported per CTA on prior visit 05/20 Chronic CHF exacerbation, diastolic dysfunction, EF 55 to 60%, ruled out as per cardiology and pulmonary. COPD History of ovarian cancer status post resection and chemotherapy Former nicotine dependence Hypothyroidism Hypertension .....and multiple other medical issues. Plan: Continue on current medication regimen ,monitoring and symptomatic treatment. Maintain aggressive pulmonary toileting, with nebulized bronchodilators, steroids, Symbicort, diuretics, IS reinforced. PT/OT consulted- increase activity-Up in chair. The impression and plan of care has been dictated as directed. : I performed a history and examination of this patient, discussed the same with the dictator. I agree with the dictator's note ,documented as a scribe. Any additional findings or plans will be noted.
[2025-06-09 16:24] LABS: Glucose,Whole Blood 176 mg/dL (70-110)
[2025-06-09 20:09] LABS: Glucose,Whole Blood 159 mg/dL (70-110)
[2025-06-10] MEDS: IPRATROPIUM-ALBUTEROL 3 ML NEB INHALATION PRN (03:56)
[2025-06-10 06:24] LABS: Glucose,Whole Blood 152 mg/dL (70-110)
[2025-06-10] MEDS: PANTOPRAZOLE 40 MG/10 ML VIAL IVP SCH ×2 (08:41→20:30)
--- NOTE | 2025-06-10 11:26 | XR ---
EXAMINATION TYPE: XR chest 1V DATE OF EXAM: 06/10/2025 COMPARISON: 06/05/2025 CLINICAL INDICATION: Female, 69 years old with history of pneumonitis; TECHNIQUE: Single frontal view of the chest is obtained. FINDINGS: Right anterior chest wall injection port with catheter tip at the mid SVC level. Heart moderately enl arged. Diffuse interstitial and patchy opacities persist without significant change. IMPRESSION: Similar mild to moderate cardiomegaly and diffuse interstitial and patchy opacities. Eit her atypical pneumonias, interstitial pneumonitis, or interstitial pulmonary edema. [facility], Workstation: [facility], 06/10/2025 11:24 AM
[2025-06-10 11:34] LABS: Glucose,Whole Blood 177 mg/dL (70-110)
[2025-06-10] MEDS: MAG HYDROX/AL HYDROX/SIMETH 30 ML CUP PO SCH (12:02)
[2025-06-10] MEDS: FLUCONAZOLE IN NACL,ISO-OSM 100 MG in SALINE 1 50ML.BAG IVPB SCH (12:04)
--- NOTE | 2025-06-10 12:37 | P.PN ---
Subjective Progress Note Date: 06/10/25 This is a pleasant 69-year-old with past medical history of esophageal cancer on chemotherapy with Enhertu therapy thereafter developing interstitial pneumonitis. She initially presented on 05/01/2025 for increased worsening shortness of breath hypoxic respiratory failure. From cardiology perspective she got IV diuretics with Lasix and Aldactone This time she presents to the hospital because of increased worsening shortness of breath. Denies any chest pain chest pressure denies any palpitation. Denies any lightheadedness syncope episodes. During current hospitalization there was also concerns of possible atrial tachycardia versus SVT on telemetry which has subsided after she was given magnesium and potassium. Her magnesium was 1.7 potassium was 3.2. Her echo showed EF of 60%, no significant valvular dysfunction Chest x-ray from admission no significant consolidation congestion, Mediport in place CTA chest did not show any evidence of PE, interval development of multiple soft tissue mass in mid upper abdomen, periaortic region, diffuse parenchymal groundglass opacities with emphysematous changes, small pleural effusion Pertinent labs hemoglobin 14, BUN 26, creatinine 0.8, initial troponin was elevated at 0.11, repeat 0.14, repeat 0.16 On last admission she also had elevated troponin. EKG shows sinus rhythm with moderate T wave abnormalities 06/08/2025 The patient was seen and examined resting comfortably in bed with family at bedside. Overall she is feeling a bit better. She is maintained on steroids and diuretics. 06/09/2025 Patient was seen and examined sitting up eating breakfast. Her breathing has been stable. She has had occasional palpitations. Complains of heartburn. Continues on diuretics and steroids. 06/10/2025 Patient seen and examined. She denies dizziness, no cough, no nausea. Blood pressure 110/76, heart rate in the 80s, pulse ox 96% on 10 L high flow nasal cannula. Yesterday, metoprolol tartrate was increased to 25 mg. PHYSICAL EXAMINATION: Neck: Brisk carotid upstroke, no jugular venous distention. Lungs: On nasal cannula oxygen, crackles and mild wheezing. Heart: Regular rate and rhythm, S1-S2, , no murmur or rub. Abdomen: Soft nontender, positive bowel sounds. Extremities: No edema, intact distal pulses. Neuro: Alert, oriented, no focal deficits. 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 Cardiology will sign off this case and follow on an as-needed basis. Please reconsult for any new concerns. Patient may follow-up in the office in one to 2 weeks. ACCOUNTS RECEIVABLE REPRESENTATIVE note has been reviewed, I agree with a documented findings and plan of care. Patient was seen and examined. Objective - Vital Signs Vital signs: Vital Signs Temp 97.9 F 06/10/25 08:32 Pulse 86 06/10/25 08:37 Resp 20 06/10/25 08:32 BP 110/76 06/10/25 08:32 Pulse Ox 96 06/10/25 08:32 FiO2 Intake & Output 06/09/25 06/10/25 06/10/25 18:59 06:59 18:59 Intake Total 260 10 Output Total 400 300 Balance -140 -290 Weight 48.5 kg 65.5 kg Intake: IV 10 0.9 10 Oral 260 Output: Urine 400 300 Other: Voiding Method External Catheter External Catheter - Labs CBC & Chem 7: 06/07/25 11:07 06/08/25 10:26 Labs: Abnormal Lab Results - Last 24 Hours (Table) 06/09/25 06/09/25 06/09/25 Range/Units 11:21 16:22 20:08 POC Glucose (mg/dL) 200 H 176 H 159 H (70-110) mg/dL 06/10/25 Range/Units 06:23 POC Glucose (mg/dL) 152 H (70-110) mg/dL
--- NOTE | 2025-06-10 14:01 | P.PN ---
Subjective Progress Note Date: 06/10/25 Ms. Real is a 69-year-old female with multiple comorbidities including history of ovarian cancer status post resection and chemotherapy. In 02/16, she was diagnosed with distal esophageal cancer, metastatic, and was started on palliative chemotherapy with FOLFOX and Herceptin completing 9 cycles. Due to intolerance, her regimen was changed to Herceptin and 5FU infusion only. The patient was subsequently changed to Enhertu on progression. She was on the same till about 03/20, at which time she developed progressive shortness of breath. She had CT scans of the chest done in the [facility] system, most recently in 03/20, that were concerning for pneumonitis, showing bilateral infiltrative changes and groundglass opacities, more prominent in the lung apices. As this is a known side effect of her regimen, that was discontinued, and the patient was placed on steroids. She completed her steroid taper in late 04/19, with improvement in her respiratory complaints. The patient's subsequent imaging had shown evidence of progression, and the plan was to change her to Taxol and Cyramza, with cycle 1 being delayed r/t admission last month for SOB, felt to be r/t to pneumonitis r/t Enhertu. She was treated again with steroid taper. Pt states SOB was initially improving on higher dose steroids but SOB progressed as the taper decreased. She had cycle 1 of cyramza/taxol on 06/02. She states that since she has been experiencing shortness of breath and hypoxia that caused her to present to the emergency room for further evaluation. She was seen by her woolen tester, which there was possible concern for collapsed lung?. Upon admit repeat chest x-ray did not show any evidence of pneumothorax. CTA chest negative for pulmonary embolism. With interval development and enlargement of multiple soft tissue masses in the mid upper abdomen, retrocrural and periaortic region in addition to enlargement to new mediastinal and lower neck soft tissue masses. Of note does report that these masses were previously noted on CT chest from 05/01/2025 but are more conspicuous and have enlarged. Patient was also found to have mildly elevated serial troponins. BNP elevated at 7770. Elevated LFTs, bilirubin 1.2. WBC 8.9, hemoglobin 14.9, platelets 81,000. Creatinine 0.80, GFR 76. Pulmonology is following. Patient has been started on high-dose steroids, with Solu-Medrol 60 mg every 6 hours. Patient is also reporting since admit she has been experiencing episodes of tachycardia with associated chest pressure and dizziness. Cardiology has been consulted On 06/08/2025, the patient is being seen for a follow-up. The patient was hospitalized for worsening shortness of breath and hypoxemic respiratory failure. She is known to have metastatic esophageal cancer, details as discussed earlier and the patient is suspected to have acute pneumonitis related to Enhertu treatment. Based on that, the treatment was discontinued the patient was subjected to the higher dose prednisone. She was discharged home on 70 mg of prednisone and she was being gradually tapered down by 10 mg every week and she was down to 40 mg. By then, she had progressive worsening in oxygenation and shortness of breath and she was brought into the hospital for hypoxia as per the failure because she is on 10 L of oxygen by nasal cannula. Noted, the patient was given a combination of Taxol and Cyramza post her discharge. Oncology is on the case. The patient is calm and comfortable. This morning, she is on 8 L of oxygen by nasal cannula. I reviewed the CTA of the chest and it shows diffuse pneumonitis and there is also development of a small to moderate size left-sided pleural effusion. The patient is currently on IV Solu- Medrol. The BUN is 43 with a creatinine of 0.88 and a sodium levels at 138 and a potassium level of 3.9. She is currently on NovoLog sliding scale coverage for blood sugar control. She is also on anticoagulation with Eliquis. No altered mentation. Family at the bedside. Her cardiac rhythm is sinus with a left anterior fascicular block. On today's evaluation of 06/09/2025, the patient is being seen for a follow-up. Clinically stable and the patient has no interval worsening shortness of breath. She is currently on IV Solu-Medrol for drug-induced pneumonitis and the patient is currently on 7 L of O2 by nasal cannula. Her cardiac rhythm is sinus. She remains on IV Solu-Medrol 60 mg every 6 hours. She is also on anticoagulation with Eliquis 5 mg p.o. twice a day. She is on metoprolol 25 mg twice a day. Rest of her medications are essentially unchanged. The blood work shows a blood sugar of 200. BUN was 43 and a creatinine of 0.8 from yesterday. Awake and alert and communicating. No other significant events overnight. She will be provided incentive spirometer. Will also consult physical therapy. On today's evaluation of 06/10/2025, the patient is being seen for a follow-up. Overnight, the patient was having some increased shortness of breath and hypoxemia. Based on that, the patient was placed on oxygen at 10 L/min nasal cannula. Furthermore, the patient was having difficulties in swallowing. Her oral intake was quite diminished. On examination, the patient has extensive oropharyngeal candidiasis with tongue involvement. Based on the worsening in the oxygenation, chest x-ray was ordered and reviewed. Chest x-ray findings are essentially similar with mild to moderate cardiomegaly and diffuse interstitial and patchy opacities bilaterally. Findings are essentially unchanged. She continues to have reflux. She is on IV Protonix. Maalox will be also added. She is on Lasix 40 mg p.o. daily. She remains on anticoagulation with Eliquis 5 mg p.o. twice a day. Objective - Vital Signs Vital signs: Vital Signs Temp 97.9 F 06/10/25 08:32 Pulse 86 06/10/25 08:37 Resp 20 06/10/25 08:32 BP 110/76 06/10/25 08:32 Pulse Ox 96 06/10/25 08:32 FiO2 Intake & Output 06/09/25 06/10/25 06/10/25 18:59 06:59 18:59 Intake Total 260 10 100 Output Total 400 300 Balance -140 -290 100 Weight 48.5 kg 65.5 kg Intake: IV 10 0.9 10 Oral 260 100 Output: Urine 400 300 Other: Voiding Method External Catheter External Catheter External Catheter - Exam The patient appeared well nourished and normally developed. Vital signs as documented. The patient is anxious. The patient is currently on 10 L of O2 nasal cannula. Head exam is unremarkable. No scleral icterus or corneal arcus noted. Neck is without jugular venous distension, thyromegaly, or carotid bruits. Carotid upstrokes are brisk bilaterally. The patient has extensive oropharyngeal candidiasis Lungs are clear to auscultation and percussion. Crackles are somewhat coarse in the midline lower lung pearl bilaterally. Cardiac exam reveals the PMI to be normally sized and situated. Rhythm is regular. First and second heart sounds normal. No murmurs, rubs or gallops. Abdominal exam reveals normal bowel sounds, no masses, no organomegaly and no aortic enlargement. Extremities are nonedematous and both femoral and pedal pulses are normal. Examination of the skin revealed no evidence of significant rashes, suspicious appearing nevi or other concerning lesions. Neurologically, the patient is awake and alert and the patient does not have any focal neurological deficit. Cranial nerves are essentially intact. - Labs CBC & Chem 7: 06/07/25 11:07 06/08/25 10:26 Labs: Abnormal Lab Results - Last 24 Hours (Table) 06/09/25 06/09/25 06/09/25 Range/Units 11:21 16:22 20:08 POC Glucose (mg/dL) 200 H 176 H 159 H (70-110) mg/dL 06/10/25 Range/Units 06:23 POC Glucose (mg/dL) 152 H (70-110) mg/dL Assessment and Plan Plan: Acute hypoxic respiratory failure, currently requiring 10 L of high flow oxygen by nasal cannula. CT angiogram ruled out pulmonary embolism. There is interval development and significant enlargement of multiple soft tissue masses in the mid upper abdomen, retrocrural and periaortic region in addition to enlargement and new mediastinal and lower neck soft tissue masses. Diffuse parenchymal groundglass changes, in addition to a small left-sided pleural effusion that was not present on earlier CAT scan of the chest. Findings are still consistent with diffuse drug-induced pneumonitis probably related to Enhertu treatment but the patient received earlier for treatment of metastatic esophageal cancer. the patient was having gradual improvement in oxygenation. She was weaned down to 7 L and she is back to 10 L. Chest x-ray from 06/10/2025 shows no significant interval change. She remains on IV Solu-Medrol. 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 Suspect Enhertu related pneumonitis. There has been obvious decompensation of respiratory status with the tapering dose of prednisone. Acute on chronic shortness of breath secondary to above. Extensive oropharyngeal candidiasis Active heartburn Metastatic esophageal cancer with development of esophageal and mediastinal lymphadenopathy. The patient was recently given a combination of Taxol and Cyramza on outpatient basis. COPD. Elevated troponin, type II NSTEMI, more likely related to malignancy and demand supply mismatch History of ovarian cancer. Chronic anxiety. Chronic back pain. Hypertension. Hyperlipidemia. Former smoker. Plan: Continue monitoring the patient's oxygenation currently on 10 L of oxygen by nasal cannula Continue IV Solu-Medrol 60 mg every 6 hours Provide incentive spirometer IV Protonix 40 mg every 12 hours Maalox 20 cc 4 times a day IV Diflucan 100 mg daily Physical therapy Ultrasound of the chest was done and there is no sizable effusion on the left. Follow-up chest x-ray was noted NovoLog sliding scale as insulin coverage for blood sugar control Continue anticoagulation with Eliquis Case was discussed with medical oncology and with the family at the bedside. Time with Patient: Greater than 30
[2025-06-10] MEDS: MAG HYDROX/AL HYDROX/SIMETH 30 ML, LIDOCAINE VISCOUS 2% 30 ML, diphenhydrAMINE ELIXIR 7... PO SCH (15:23)
[2025-06-10] MEDS: CLOTRIMAZOLE TROCHE 10 MG TROCHE MUCOUS MEM SCH (15:25)
[2025-06-10] MEDS: SODIUM CHLORIDE 0.9% 250 ML IV ONE (15:25)
[2025-06-10 16:38] LABS: Glucose,Whole Blood 229 mg/dL (70-110)
--- NOTE | 2025-06-10 16:39 | P.PN ---
Subjective Progress Note Date: 06/10/25 06/08/2025 this is a pleasant 69-year-old female recently hospitalized and treated for hypoxemia, suspected drug-induced Enhertu pneumonitis, discharged on 05/10/2025. Received immunotherapy June 02, 2025, returned back to the hospital with increasing hypoxemia-worsened with exertion, cough, congestion. CTA ruled out PE, reported interval development and significant enlargement of multiple soft tissue masses in the mid upper abdomen, retrocrural and periaortic region in addition to enlargement and new mediastinal and lower neck soft tissue masses. Diffuse parenchymal groundglass changes superimposed on of somatic lungs may represent pulmonary edema versus fibrotic lung disease. Small left and trace right pleural effusions. Chest x-ray reported diffuse interstitial prominence suspicious for interstitial lung disease versus atypical pneumonia. Procalcitonin within normal limits. BNP 7770. maintained on nebulized bronchodilators, IV steroids and Symbicort. diuretics transitioned to oral. ox ygen titrated down to 8 L high flow nasal cannula. Afebrile. Chest ultrasound pending. 06/09/2025 chest ultrasound completed yesterday reporting right and left side not marked for possible thoracentesis-left pleural effusion pocket size 2.8 cm. Maintained on Symbicort, IV steroids, nebulized bronchodilators and oral diuretic. oxygen titrated down to 7 L, maintaining O2 sats in the low 90s. Blo od sugars controlled .telemetry sinus rhythm. Complaining of heartburn, occasional palpitations. Metoprolol increased. EKG pending. 06/10/2025 Complains of heartburn, significant gastroesophageal reflux disease accompanied by extensive oral thrush. Oral intake poor. no additional cardiac workup recommended at this time, cardiology has signed off today. Patient had a rough night with increased shortness of breath, requiring up to 12 L high flow nasal cannula. Oxygen currently weaned down to 10 L high flow. Chest x-ray ordered. Objective - Vital Signs Vital signs: Vital Signs Temp 97.9 F 06/10/25 08:32 Pulse 72 06/10/25 15:57 Resp 20 06/10/25 08:32 BP 110/76 06/10/25 08:32 Pulse Ox 95 06/10/25 15:57 FiO2 Intake & Output 06/09/25 06/10/25 06/10/25 18:59 06:59 18:59 Intake Total 260 10 100 Output Total 400 300 Balance -140 -290 100 Weight 48.5 kg 65.5 kg Intake: IV 10 0.9 10 Oral 260 100 Output: Urine 400 300 Other: Voiding Method External Catheter External Catheter External Catheter - Exam GENERAL: Fatigued ,sitting up in bed,Alert and oriented x 3, NAD, HEAD: Atraumatic, normocephalic. Oral thrush. NECK: Supple, no JVD LUNGS: Equal air entry, occasional expiratory wheeze, bibasilar crackles. HEART: S1 S2. Regular rate and rhythm. ABDOMEN: Soft, nondistended, nontender,no guarding. Positive bowel sounds EXTREMITIES:no edema. No clubbing or cyanosis. Peripheral pulses intact. NEUROLOGICAL: Cranial nerves II through XII grossly intact. No focal deficits. SKIN: Warm, Dry, no rashes noted. - Labs CBC & Chem 7: 06/07/25 11:07 06/08/25 10:26 Labs: Abnormal Lab Results - Last 24 Hours (Table) 06/09/25 06/09/25 06/10/25 Range/Units 16:22 20:08 06:23 POC Glucose (mg/dL) 176 H 159 H 152 H (70-110) mg/dL 06/10/25 Range/Units 11:33 POC Glucose (mg/dL) 177 H (70-110) mg/dL Assessment and Plan Assessment: Acute hypoxic respiratory failure. CTA ruled out PE, reported interval development and significant enlargement of multiple soft tissue masses in the mid upper abdomen, retrocrural and periaortic region in addition to enlargement and new mediastinal and lower neck soft tissue masses. Diffuse parenchymal groundglass changes superimposed on of somatic lungs may represent pulmonary edema versus fibrotic lung disease. Small left and trace right pleural effusions. Procalcitonin within normal limits.per pulmonary's review of imaging, still consistent with diffuse drug-induced pneumonitis probably related to previous Enhertu treatment. Gastroesophageal reflux disease Oral Candidiasis, extensive Recent immunotherapy on 06/02/2025 Recently treated inpatient for hypoxemia and suspected [id number] ,pneumonitis, discharged on 05/10/25. Paroxysmal atrial tachycardia, SVT Chronic paroxysmal atrial fibrillation Metastatic esophageal cancer, Enhertu chemo recently discontinued. New treatment restarted on 06/02/2025 Posterior retrocrural and lower paraesophageal masses, some enlarged lymphadenopathy within the mediastinum reported per CTA on prior visit 05/20 Chronic CHF exacerbation, diastolic dysfunction, EF 55 to 60%, ruled out as per cardiology and pulmonary. COPD History of ovarian cancer status post resection and chemotherapy Former nicotine dependence Hypothyroidism Hypertension .....and multiple other medical issues. Plan: Continue on current medication regimen ,monitoring and symptomatic treatment. IV PPI increased to twice daily .Cools solution ordered along with Mycelex ke.IV fluconazole has been ordered. chest x-ray reporting similar with mild to moderate cardiomegaly, diffuse interstitial, patchy opacities bilaterally. Continue aggressive pulmonary toileting, nebulized bronchodilators, steroids, Symbicort, diuretics.decreased urine output -250 mL fluid challenge.PT/OT. The impression and plan of care has been dictated as directed. : I performed a history and examination of this patient, discussed the same with the dictator. I agree with the dictator's note ,documented as a scribe. Any additional findings or plans will be noted.
--- NOTE | 2025-06-10 19:05 | P.PN ---
Subjective Progress Note Date: 06/10/25 Reporting persisting SOB. Continues on high flow O2. Reporting oral irritation, thrush noted. Diflucan has been started Objective - Vital Signs Vital signs: Vital Signs Temp 97.7 F 06/10/25 12:01 Pulse 72 06/10/25 15:57 Resp 18 06/10/25 15:20 BP 113/78 06/10/25 15:20 Pulse Ox 95 06/10/25 15:57 FiO2 Intake & Output 06/09/25 06/10/25 06/10/25 18:59 06:59 18:59 Intake Total 260 10 100 Output Total 400 300 175 Balance -140 -290 -75 Weight 48.5 kg 65.5 kg Intake: IV 10 0.9 10 Oral 260 100 Output: Urine 400 300 175 Other: Voiding Method External Catheter External Catheter External Catheter - Constitutional General appearance: Present: no acute distress - EENT EENT Comment(s): thrush - Respiratory Details: breathing is labored - Cardiovascular Details: skin warm and dry - Musculoskeletal Musculoskeletal: Present: generalized weakness - Psychiatric Psychiatric: Present: A&O x's 3 - Labs CBC & Chem 7: 06/07/25 11:07 06/08/25 10:26 Labs: Abnormal Lab Results - Last 24 Hours (Table) 06/09/25 06/10/25 06/10/25 Range/Units 20:08 06:23 11:33 POC Glucose (mg/dL) 159 H 152 H 177 H (70-110) mg/dL 06/10/25 Range/Units 16:36 POC Glucose (mg/dL) 229 H (70-110) mg/dL - Imaging and Cardiology Chest x-ray: report reviewed Assessment and Plan (1) Elevated troponin Current Visit: Yes Status: Acute Code(s): R77.8 - OTHER SPECIFIED ABNORMALITIES OF PLASMA PROTEINS SNOMED Code(s): 065070838 (2) Hypoxia Current Visit: Yes Status: Acute Priority: High Code(s): R09.02 - HYPOXEMIA SNOMED Code(s): 758708746 (3) Esophageal adenocarcinoma Current Visit: Yes Status: Chronic Priority: Medium Code(s): C15.9 - MALIGNANT NEOPLASM OF ESOPHAGUS, UNSPECIFIED SNOMED Code(s): 009077998 Plan: SOB -CTA negative for PE. With interval development and enlargement of multiple soft tissue masses in the mid upper abdomen, retrocrural and periaortic region in addition to enlargement to new mediastinal and lower neck soft tissue masses. Pt just started on new treatment regimen. -Pulmonology following. Discussed with Pulm. Patient has been started on high- dose steroids, with Solu-Medrol 60 mg every 6 hours. -Patient reporting since admit she has been experiencing episodes of tachycardia with associated chest pressure and dizziness. She was found to be in SVT. NSTEMI on admit. Cardiology following Thrush: -Diflucan and Kools solution started Metatstatic esophageal carcinoma -Diagnostic and therapeutic circumstances as described in consult. -Patient completed cycle 1 of taxol/cyramza on 06/02. Noted progression on CTA chest, not consistent with tx failure. She has been off treatment and just restarted new treatment regimen on 06/02 -SOB symptoms persisting prior to treatment. Tx on hold until acute condition resolved Doctor attests: I performed a history and physical examination of this patient, developed impression and plan of care. Discussed with dictator. I agree with dictators note, documented as a scribe.
[2025-06-10 20:24] LABS: Glucose,Whole Blood 186 mg/dL (70-110)
[2025-06-11 06:01] LABS: Glucose,Whole Blood 141 mg/dL (70-110)
[2025-06-11 10:18] LABS: HCT 45.9 % (37.2-46.3); HGB 16.0 g/dL (12.0-15.0); MCH 35.6 pg (27.0-32.0); MCHC 34.9 g/dL (32.0-37.0); MCV 102.2 fL (80.0-97.0); RBC 4.49 10*6/uL (4.10-5.20); RDW 12.4 % (11.5-14.5); WBC 4.94 10*3/uL (4.50-10.00)
[2025-06-11 10:26] LABS: ALT 110 U/L (4-34); African American GFR (CKD) >90 (>60 ml/min/1.73 sqM); Albumin 3.1 g/dL (3.5-5.0); Anion Gap 9 mmol/L; Blood Urea Nitrogen 51 mg/dL (7-17); Calcium 9.8 mg/dL (8.4-10.2); Carbon Dioxide 34 mmol/L (22-30); Chloride 90 mmol/L (98-107); Glucose 217 mg/dL (74-99); Non-African American GFR(CKD) >90 (>60 ml/min/1.73 sqM); Sodium 133 mmol/L (137-145); Total Protein 6.0 g/dL (6.3-8.2)
[2025-06-11 10:45] LABS: Lymphocytes # (M) 0.30 k/uL (1.0-4.8); Monocytes # (M) 0.10 k/uL (0-1.0); Neutrophils # (M) 4.54 k/uL (1.3-7.7); Neutrophils % (M) 91 %; Total Cells Counted 100
[2025-06-11 10:46] LABS: Anisocytosis (M) Present
[2025-06-11 10:47] LABS: Platelet Count 69 10*3/uL (140-440)
[2025-06-11 10:58] LABS: AST 95 U/L (14-36); Potassium 5.2 mmol/L (3.5-5.1)
[2025-06-11 10:59] LABS: Alkaline Phosphatase 215 U/L (38-126)
--- NOTE | 2025-06-11 11:27 | P.PN ---
Subjective Progress Note Date: 06/11/25 06/08/2025 this is a pleasant 69-year-old female recently hospitalized and treated for hypoxemia, suspected drug-induced Enhertu pneumonitis, discharged on 05/10/2025. Received immunotherapy June 02, 2025, returned back to the hospital with increasing hypoxemia-worsened with exertion, cough, congestion. CTA ruled out PE, reported interval development and significant enlargement of multiple soft tissue masses in the mid upper abdomen, retrocrural and periaortic region in addition to enlargement and new mediastinal and lower neck soft tissue masses. Diffuse parenchymal groundglass changes superimposed on of somatic lungs may represent pulmonary edema versus fibrotic lung disease. Small left and trace right pleural effusions. Chest x-ray reported diffuse interstitial prominence suspicious for interstitial lung disease versus atypical pneumonia. Procalcitonin within normal limits. BNP 7770. maintained on nebulized bronchodilators, IV steroids and Symbicort. diuretics transitioned to oral. ox ygen titrated down to 8 L high flow nasal cannula. Afebrile. Chest ultrasound pending. 06/09/2025 chest ultrasound completed yesterday reporting right and left side not marked for possible thoracentesis-left pleural effusion pocket size 2.8 cm. Maintained on Symbicort, IV steroids, nebulized bronchodilators and oral diuretic. oxygen titrated down to 7 L, maintaining O2 sats in the low 90s. Blo od sugars controlled .telemetry sinus rhythm. Complaining of heartburn, occasional palpitations. Metoprolol increased. EKG pending. 06/10/2025 Complains of heartburn, significant gastroesophageal reflux disease accompanied by extensive oral thrush. Oral intake poor. no additional cardiac workup recommended at this time, cardiology has signed off today. Patient had a rough night with increased shortness of breath, requiring up to 12 L high flow nasal cannula. Oxygen currently weaned down to 10 L high flow. Chest x-ray ordered. 06/11/2025 maintained on nebulized bronchodilators, IV steroids, Symbicort .reports she slept better throughout the night without increase in shortness of breath. Maintaining O2 sats in the mid 90s on 8 L high flow nasal cannula. Yesterday PPI increased to twice daily, reports improvement in heartburn. Continues on Mycelex troches, fluconazole IVPB, cool's solution with improvement in oral thrush. Increase diet intake today compared to yesterday with 25% of breakfast consumed. Currently sipping on iced coffee drink. 24-hour I&O reflecting a 24-hour urine output of 775. Labs pending. Objective - Vital Signs Vital signs: Vital Signs Temp 97.6 F 06/11/25 09:03 Pulse 87 06/11/25 09:03 Resp 16 06/11/25 09:03 BP 118/77 06/11/25 09:03 Pulse Ox 88 L 06/11/25 09:03 FiO2 Intake & Output 06/10/25 06/11/25 06/11/25 18:59 06:59 18:59 Intake Total 100 560 0 Output Total 175 600 Balance -75 -40 0 Weight 66 kg 66 kg Intake: IV 20 Invasive Line 3 20 Oral 100 540 0 Output: Urine 175 600 Other: Voiding Method External Catheter External Catheter # Voids 1 - Exam GENERAL: Pleasant,sitting up in bed,Alert and oriented x 3, NAD, HEAD: Atraumatic, normocephalic. Oral thrush. NECK: Supple, no JVD LUNGS: Equal air entry, mild right inspiratory wheeze, coarse scattered crackles, bilateral bases diminished HEART: S1 S2. Regular rate and rhythm. ABDOMEN: Soft, nondistended, nontender,no guarding. Positive bowel sounds EXTREMITIES:no edema. No clubbing or cyanosis. Peripheral pulses intact. NEUROLOGICAL: Cranial nerves II through XII grossly intact. No focal deficits. SKIN: Warm, Dry, no rashes noted. - Labs CBC & Chem 7: 06/11/25 09:54 06/11/25 09:54 Labs: Abnormal Lab Results - Last 24 Hours (Table) 06/10/25 06/10/25 06/10/25 Range/Units 11:33 16:36 20:23 Hgb (12.0-15.0) g/dL MCV (80.0-97.0) fL MCH (27.0-32.0) pg Plt Count (140-440) 10*3/uL Lymphocytes # (Manual) (1.0-4.8) k/uL Sodium (137-145) mmol/L Potassium (3.5-5.1) mmol/L Chloride (98-107) mmol/L Carbon Dioxide (22-30) mmol/L BUN (7-17) mg/dL Glucose (74-99) mg/dL POC Glucose (mg/dL) 177 H 229 H 186 H (70-110) mg/dL Total Bilirubin (0.2-1.3) mg/dL AST (14-36) U/L ALT (4-34) U/L Alkaline Phosphatase (38-126) U/L Total Protein (6.3-8.2) g/dL Albumin (3.5-5.0) g/dL 06/11/25 06/11/25 06/11/25 Range/Units 05:58 09:54 09:54 Hgb 16.0 H (12.0-15.0) g/dL MCV 102.2 H (80.0-97.0) fL MCH 35.6 H (27.0-32.0) pg Plt Count 69 L (140-440) 10*3/uL Lymphocytes # (Manual) 0.30 L (1.0-4.8) k/uL Sodium 133 L (137-145) mmol/L Potassium 5.2 H (3.5-5.1) mmol/L Chloride 90 L (98-107) mmol/L Carbon Dioxide 34 H (22-30) mmol/L BUN 51 H (7-17) mg/dL Glucose 217 H (74-99) mg/dL POC Glucose (mg/dL) 141 H (70-110) mg/dL Total Bilirubin 1.5 H (0.2-1.3) mg/dL AST 95 H (14-36) U/L ALT 110 H (4-34) U/L Alkaline Phosphatase 215 H (38-126) U/L Total Protein 6.0 L (6.3-8.2) g/dL Albumin 3.1 L (3.5-5.0) g/dL Assessment and Plan Assessment: Acute hypoxic respiratory failure. CTA ruled out PE, reported interval development and significant enlargement of multiple soft tissue masses in the mid upper abdomen, retrocrural and periaortic region in addition to enlargement and new mediastinal and lower neck soft tissue masses. Diffuse parenchymal groundglass changes superimposed on of somatic lungs may represent pulmonary edema versus fibrotic lung disease. Small left and trace right pleural effusions. Procalcitonin within normal limits.per pulmonary's review of imaging, still consistent with diffuse drug-induced pneumonitis probably related to previous Enhertu treatment. Gastroesophageal reflux disease Oral Candidiasis, extensive Recent immunotherapy on 06/02/2025 Recently treated inpatient for hypoxemia and suspected [id number] ,pneumonitis, discharged on 05/10/25. Paroxysmal atrial tachycardia, SVT Chronic paroxysmal atrial fibrillation Metastatic esophageal cancer, Enhertu chemo recently discontinued. New treatment restarted on 06/02/2025 Posterior retrocrural and lower paraesophageal masses, some enlarged lymphadenopathy within the mediastinum reported per CTA on prior visit 05/20 Chronic CHF exacerbation, diastolic dysfunction, EF 55 to 60%, ruled out as per cardiology and pulmonary. COPD History of ovarian cancer status post resection and chemotherapy Former nicotine dependence Hypothyroidism Hypertension .....and multiple other medical issues. Plan: Continue on current medication regimen ,monitoring and symptomatic treatment. Labs pending. Continue on PPI, cools solution Mycelex ke,IV fluconazole. Encourage diet intake. maintain aggressive pulmonary toileting, nebulized bronchodilators, steroids, Symbicort, diuretics.PT/OT. The impression and plan of care has been dictated as directed. : I performed a history and examination of this patient, discussed the same with the dictator. I agree with the dictator's note ,documented as a scribe. Any additional findings or plans will be noted.
[2025-06-11 11:28] LABS: Glucose,Whole Blood 211 mg/dL (70-110)
--- NOTE | 2025-06-11 12:25 | P.PN ---
Subjective Progress Note Date: 06/11/25 Ms. Real is a 69-year-old female with multiple comorbidities including history of ovarian cancer status post resection and chemotherapy. In 02/16, she was diagnosed with distal esophageal cancer, metastatic, and was started on palliative chemotherapy with FOLFOX and Herceptin completing 9 cycles. Due to intolerance, her regimen was changed to Herceptin and 5FU infusion only. The patient was subsequently changed to Enhertu on progression. She was on the same till about 03/20, at which time she developed progressive shortness of breath. She had CT scans of the chest done in the [facility] system, most recently in 03/20, that were concerning for pneumonitis, showing bilateral infiltrative changes and groundglass opacities, more prominent in the lung apices. As this is a known side effect of her regimen, that was discontinued, and the patient was placed on steroids. She completed her steroid taper in late 04/19, with improvement in her respiratory complaints. The patient's subsequent imaging had shown evidence of progression, and the plan was to change her to Taxol and Cyramza, with cycle 1 being delayed r/t admission last month for SOB, felt to be r/t to pneumonitis r/t Enhertu. She was treated again with steroid taper. Pt states SOB was initially improving on higher dose steroids but SOB progressed as the taper decreased. She had cycle 1 of cyramza/taxol on 06/02. She states that since she has been experiencing shortness of breath and hypoxia that caused her to present to the emergency room for further evaluation. 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 Upon admit repeat chest x-ray did not show any evidence of pneumothorax. CTA chest negative for pulmonary embolism. With interval development and enlargement of multiple soft tissue masses in the mid upper abdomen, retrocrural and periaortic region in addition to enlargement to new mediastinal and lower neck soft tissue masses. Of note does report that these masses were previously noted on CT chest from 05/01/2025 but are more conspicuous and have enlarged. Patient was also found to have mildly elevated serial troponins. BNP elevated at 7770. Elevated LFTs, bilirubin 1.2. WBC 8.9, hemoglobin 14.9, platelets 81,000. Creatinine 0.80, GFR 76. Pulmonology is following. Patient has been started on high-dose steroids, with Solu-Medrol 60 mg every 6 hours. Patient is also reporting since admit she has been experiencing episodes of tachycardia with associated chest pressure and dizziness. Cardiology has been consulted On 06/08/2025, the patient is being seen for a follow-up. The patient was hospitalized for worsening shortness of breath and hypoxemic respiratory failure. She is known to have metastatic esophageal cancer, details as discussed earlier and the patient is suspected to have acute pneumonitis related to Enhertu treatment. Based on that, the treatment was discontinued the patient was subjected to the higher dose prednisone. She was discharged home on 70 mg of prednisone and she was being gradually tapered down by 10 mg every week and she was down to 40 mg. By then, she had progressive worsening in oxygenation and shortness of breath and she was brought into the hospital for hypoxia as per the failure because she is on 10 L of oxygen by nasal cannula. Noted, the patient was given a combination of Taxol and Cyramza post her discharge. Oncology is on the case. The patient is calm and comfortable. This morning, she is on 8 L of oxygen by nasal cannula. I reviewed the CTA of the chest and it shows diffuse pneumonitis and there is also development of a small to moderate size left-sided pleural effusion. The patient is currently on IV Solu- Medrol. The BUN is 43 with a creatinine of 0.88 and a sodium levels at 138 and a potassium level of 3.9. She is currently on NovoLog sliding scale coverage for blood sugar control. She is also on anticoagulation with Eliquis. No altered mentation. Family at the bedside. Her cardiac rhythm is sinus with a left anterior fascicular block. On today's evaluation of 06/09/2025, the patient is being seen for a follow-up. Clinically stable and the patient has no interval worsening shortness of breath. She is currently on IV Solu-Medrol for drug-induced pneumonitis and the patient is currently on 7 L of O2 by nasal cannula. Her cardiac rhythm is sinus. She remains on IV Solu-Medrol 60 mg every 6 hours. She is also on anticoagulation with Eliquis 5 mg p.o. twice a day. She is on metoprolol 25 mg twice a day. Rest of her medications are essentially unchanged. The blood work shows a blood sugar of 200. BUN was 43 and a creatinine of 0.8 from yesterday. Awake and alert and communicating. No other significant events overnight. She will be provided incentive spirometer. Will also consult physical therapy. On today's evaluation of 06/10/2025, the patient is being seen for a follow-up. Overnight, the patient was having some increased shortness of breath and hypoxemia. Based on that, the patient was placed on oxygen at 10 L/min nasal cannula. Furthermore, the patient was having difficulties in swallowing. Her oral intake was quite diminished. On examination, the patient has extensive oropharyngeal candidiasis with tongue involvement. Based on the worsening in the oxygenation, chest x-ray was ordered and reviewed. Chest x-ray findings are essentially similar with mild to moderate cardiomegaly and diffuse interstitial and patchy opacities bilaterally. Findings are essentially unchanged. She continues to have reflux. She is on IV Protonix. Maalox will be also added. She is on Lasix 40 mg p.o. daily. She remains on anticoagulation with Eliquis 5 mg p.o. twice a day. On today's evaluation of 06/11/2025, the patient has been weaned down to 8 L of O2 nasal cannula. Overall respiratory status is unchanged the patient remains on IV Solu-Medrol. Chest x-ray from yesterday shows no major interval change with diffuse reticular changes bilaterally. The patient was also started on Diflucan for extensive oropharyngeal candidiasis. Symptoms have improved in the candidal throat infection seems to be subsiding. She is also on IV Protonix and Maalox for heartburn and the symptoms have also improved. She is afebrile. She is using incentive spirometer. White seconds at 4.9 with hemoglobin 16 and platelet count of 69. BUN is 31 with a creatinine of 0.6 and a sodium level of 133 and potassium is at 5.2. LFTs are mildly abnormal with a AST of 95, ALT of 110 and alkaline phosphatase of 215. Total protein is at 6 with a albumin level of 3.1. Procalcitonin level is at 0.16. She remains on Lasix. She remains on anticoagulation with Eliquis. Objective - Vital Signs Vital signs: Vital Signs Temp 97.6 F 06/11/25 09:03 Pulse 87 06/11/25 09:03 Resp 16 06/11/25 09:03 BP 118/77 06/11/25 09:03 Pulse Ox 88 L 06/11/25 09:03 FiO2 Intake & Output 06/10/25 06/11/25 06/11/25 18:59 06:59 18:59 Intake Total 100 560 0 Output Total 175 600 Balance -75 -40 0 Weight 66 kg Intake: IV 20 Invasive Line 3 20 Oral 100 540 0 Output: Urine 175 600 Other: Voiding Method External Catheter External Catheter # Voids 1 - Exam The patient appeared well nourished and normally developed. Vital signs as documented. The patient is anxious. The patient is currently on 8 L of O2 nasal cannula. Head exam is unremarkable. No scleral icterus or corneal arcus noted. Neck is without jugular venous distension, thyromegaly, or carotid bruits. Carot id upstrokes are brisk bilaterally. The patient has extensive oropharyngeal candidiasis which is improving on today's examination. Lungs are clear to auscultation and percussion. Crackles are somewhat coarse in the midline lower lung pearl bilaterally. Cardiac exam reveals the PMI to be normally sized and situated. Rhythm is regular. First and second heart sounds normal. No murmurs, rubs or gallops. Abdominal exam reveals normal bowel sounds, no masses, no organomegaly and no aortic enlargement. Extremities are nonedematous and both femoral and pedal pulses are normal. Examination of the skin revealed no evidence of significant rashes, suspicious appearing nevi or other concerning lesions. Neurologically, the patient is awake and alert and the patient does not have any focal neurological deficit. Cranial nerves are essentially intact. - Labs CBC & Chem 7: 06/11/25 09:54 06/11/25 09:54 Labs: Abnormal Lab Results - Last 24 Hours (Table) 06/10/25 06/10/25 06/10/25 Range/Units 11:33 16:36 20:23 POC Glucose (mg/dL) 177 H 229 H 186 H (70-110) mg/dL 06/11/25 Range/Units 05:58 POC Glucose (mg/dL) 141 H (70-110) mg/dL Assessment and Plan Plan: Acute hypoxic respiratory failure, currently requiring 8 L of high flow oxygen by nasal cannula. CT angiogram ruled out pulmonary embolism. There is interval development and significant enlargement of multiple soft tissue masses in the mid upper abdomen, retrocrural and periaortic region in addition to enlargement and new mediastinal and lower neck soft tissue masses. Diffuse parenchymal groundglass changes, in addition to a small left-sided pleural effusion that was not present on earlier CAT scan of the chest. Findings are still consistent with diffuse drug-induced pneumonitis probably related to Enhertu treatment but the patient received earlier for treatment of metastatic esophageal cancer. The patient remains on IV Solu-Medrol. 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 Suspect Enhertu related pneumonitis. There has been obvious decompensation of respiratory status with the tapering dose of prednisone. Acute on chronic shortness of breath secondary to above. Extensive oropharyngeal candidiasis, improving on IV Diflucan Active heartburn, currently on IV Protonix and Maalox Metastatic esophageal cancer with development of esophageal and mediastinal lymphadenopathy. The patient was recently given a combination of Taxol and Cyramza on outpatient basis. COPD. Elevated troponin, type II NSTEMI, more likely related to malignancy and demand supply mismatch History of ovarian cancer. Chronic anxiety. Chronic back pain. Hypertension. Hyperlipidemia. Former smoker. Plan: Continue monitoring the patient's oxygenation currently on 8 L of oxygen by nasal cannula Continue IV Solu-Medrol 60 mg every 6 hours Provide incentive spirometer IV Protonix 40 mg every 12 hours Maalox 20 cc 4 times a day IV Diflucan 100 mg daily Physical therapy Monitor sees labs were noted Ultrasound of the chest was done and there is no sizable effusion on the left. Follow-up chest x-ray was noted NovoLog sliding scale as insulin coverage for blood sugar control Continue anticoagulation with Eliquis Case was discussed with medical oncology and with the family at the bedside.
[2025-06-11 16:18] LABS: Glucose,Whole Blood 158 mg/dL (70-110)
[2025-06-11 19:54] LABS: Glucose,Whole Blood 175 mg/dL (70-110)
[2025-06-12 06:23] LABS: Glucose,Whole Blood 141 mg/dL (70-110)
--- NOTE | 2025-06-12 08:25 | XR ---
EXAMINATION TYPE: XR chest 1V DATE OF EXAM: 06/12/2025 COMPARISON: 06/10/2025 CLINICAL INDICATION: Female, 69 years old with history of FU pneumonitis; TECHNIQUE: Single frontal view of the chest is obtained. FINDINGS: Heart remains moderately enlarged. Right anterior chest wall injection port catheter tip a t the mid SVC level. Patient appears to be rotated and oblique. Diffuse interstitial and patchy opaci ties persist. Focal opacity at the right lower lung is suspected summation artifact. IMPRESSION: Similar cardiomegaly and extensive ongoing diffuse interstitial opacities. [facility], Workstation: [facility], 06/12/2025 8:22 AM
[2025-06-12] MEDS: SUCRALFATE 1 GM TAB PO SCH (10:15)
[2025-06-12] MEDS: SENNOSIDES-DOCUSATE SODIUM 1 EACH TAB PO SCH (10:22)
[2025-06-12 11:42] LABS: Glucose,Whole Blood 280 mg/dL (70-110)
--- NOTE | 2025-06-12 12:01 | P.PN ---
Subjective Progress Note Date: 06/12/25 06/08/2025 this is a pleasant 69-year-old female recently hospitalized and treated for hypoxemia, suspected drug-induced Enhertu pneumonitis, discharged on 05/10/2025. Received immunotherapy June 02, 2025, returned back to the hospital with increasing hypoxemia-worsened with exertion, cough, congestion. CTA ruled out PE, reported interval development and significant enlargement of multiple soft tissue masses in the mid upper abdomen, retrocrural and periaortic region in addition to enlargement and new mediastinal and lower neck soft tissue masses. Diffuse parenchymal groundglass changes superimposed on of somatic lungs may represent pulmonary edema versus fibrotic lung disease. Small left and trace right pleural effusions. Chest x-ray reported diffuse interstitial prominence suspicious for interstitial lung disease versus atypical pneumonia. Procalcitonin within normal limits. BNP 7770. maintained on nebulized bronchodilators, IV steroids and Symbicort. diuretics transitioned to oral. ox ygen titrated down to 8 L high flow nasal cannula. Afebrile. Chest ultrasound pending. 06/09/2025 chest ultrasound completed yesterday reporting right and left side not marked for possible thoracentesis-left pleural effusion pocket size 2.8 cm. Maintained on Symbicort, IV steroids, nebulized bronchodilators and oral diuretic. oxygen titrated down to 7 L, maintaining O2 sats in the low 90s. Blo od sugars controlled .telemetry sinus rhythm. Complaining of heartburn, occasional palpitations. Metoprolol increased. EKG pending. 06/10/2025 Complains of heartburn, significant gastroesophageal reflux disease accompanied by extensive oral thrush. Oral intake poor. no additional cardiac workup recommended at this time, cardiology has signed off today. Patient had a rough night with increased shortness of breath, requiring up to 12 L high flow nasal cannula. Oxygen currently weaned down to 10 L high flow. Chest x-ray ordered. 06/11/2025 maintained on nebulized bronchodilators, IV steroids, Symbicort .reports she slept better throughout the night without increase in shortness of breath. Maintaining O2 sats in the mid 90s on 8 L high flow nasal cannula. Yesterday PPI increased to twice daily, reports improvement in heartburn. Continues on Mycelex troches, fluconazole IVPB, cool's solution with improvement in oral thrush. Increase diet intake today compared to yesterday with 25% of breakfast consumed. Currently sipping on iced coffee drink. 24-hour I&O reflecting a 24-hour urine output of 775. Labs pending. 06/12/2025 maintaining O2 sats in the low 90s on 8 L nasal cannula. Positive bowel movement.Oralpharyngeal candidiasis significantly improved, yet diet intake remains poor. Family at bedside reports patient did not eat hardly anything yesterday nor this am. Objective - Vital Signs Vital signs: Vital Signs Temp 97.4 F L 06/12/25 08:14 Pulse 80 06/12/25 09:40 Resp 18 06/12/25 09:40 BP 135/87 06/12/25 08:14 Pulse Ox 92 L 06/12/25 09:28 FiO2 Intake & Output 06/11/25 06/12/25 06/12/25 18:59 06:59 18:59 Intake Total 120 20 100 Output Total 550 500 Balance -430 -480 100 Weight 66 kg 61.5 kg 61.5 kg Intake: IV 20 Invasive Line 3 20 Oral 120 100 Output: Urine 550 500 Other: Voiding Method External Catheter External Catheter - Exam GENERAL: Tired appearing, pleasant,sitting up in bed,Alert and oriented x 3, NAD, HEAD: Atraumatic, normocephalic. MMM with Oral thrush significantly improved. NECK: Supple, no JVD LUNGS: Equal air entry, mild right inspiratory wheeze, coarse scattered crackles, bilateral bases diminished HEART: S1 S2. Regular rate and rhythm. ABDOMEN: Soft, nondistended, nontender,no guarding. Positive bowel sounds EXTREMITIES:no edema. No clubbing or cyanosis. Peripheral pulses intact. NEUROLOGICAL: Cranial nerves II through XII grossly intact. No focal deficits. SKIN: Warm, Dry, no rashes noted. - Labs CBC & Chem 7: 06/11/25 09:54 06/11/25 09:54 Labs: Abnormal Lab Results - Last 24 Hours (Table) 06/11/25 06/11/25 06/12/25 Range/Units 16:16 19:52 06:21 POC Glucose (mg/dL) 158 H 175 H 141 H (70-110) mg/dL 06/12/25 Range/Units 11:41 POC Glucose (mg/dL) 280 H (70-110) mg/dL Assessment and Plan Assessment: Acute hypoxic respiratory failure. CTA ruled out PE, reported interval development and significant enlargement of multiple soft tissue masses in the mid upper abdomen, retrocrural and periaortic region in addition to enlargement and new mediastinal and lower neck soft tissue masses. Diffuse parenchymal groundglass changes superimposed on of somatic lungs may represent pulmonary edema versus fibrotic lung disease. Small left and trace right pleural effusions. Procalcitonin within normal limits.per pulmonary's review of imaging, still consistent with diffuse drug-induced pneumonitis probably related to previous Enhertu treatment. Gastroesophageal reflux disease Oral Candidiasis, extensive Recent immunotherapy on 06/02/2025 Recently treated inpatient for hypoxemia and suspected [id number] ,pneumonitis, discharged on 05/10/25. Paroxysmal atrial tachycardia, SVT Chronic paroxysmal atrial fibrillation Metastatic esophageal cancer, Enhertu chemo recently discontinued. New treatment restarted on 06/02/2025 Posterior retrocrural and lower paraesophageal masses, some enlarged lymphadenopathy within the mediastinum reported per CTA on prior visit 05/20 Chronic CHF exacerbation, diastolic dysfunction, EF 55 to 60%, ruled out as per cardiology and pulmonary. COPD History of ovarian cancer status post resection and chemotherapy Former nicotine dependence Hypothyroidism Hypertension .....and multiple other medical issues. Severe protein calorie malnutrition, BMI 24, albumin 3.1, total protein 6 Plan: Continue on current medication regimen ,monitoring and symptomatic treatment. Dietary reconsulted, poor diet intake-potential TPN, UA with culture ordered. Maintain PPI, cools solution Mycelex ke,IV fluconazole. aggressive pulmonary toileting, nebulized bronchodilators, steroids, Symbicort, diuretics.PT/OT. The impression and plan of care has been dictated as directed. : I performed a history and examination of this patient, discussed the same with the dictator. I agree with the dictator's note ,documented as a scribe. Any additional findings or plans will be noted.
--- NOTE | 2025-06-12 13:35 | P.PN ---
Subjective Progress Note Date: 06/12/25 Ms. Real is a 69-year-old female with multiple comorbidities including history of ovarian cancer status post resection and chemotherapy. In 02/16, she was diagnosed with distal esophageal cancer, metastatic, and was started on palliative chemotherapy with FOLFOX and Herceptin completing 9 cycles. Due to intolerance, her regimen was changed to Herceptin and 5FU infusion only. The patient was subsequently changed to Enhertu on progression. She was on the same till about 03/20, at which time she developed progressive shortness of breath. She had CT scans of the chest done in the [facility] system, most recently in 03/20, that were concerning for pneumonitis, showing bilateral infiltrative changes and groundglass opacities, more prominent in the lung apices. As this is a known side effect of her regimen, that was discontinued, and the patient was placed on steroids. She completed her steroid taper in late 04/19, with improvement in her respiratory complaints. The patient's subsequent imaging had shown evidence of progression, and the plan was to change her to Taxol and Cyramza, with cycle 1 being delayed r/t admission last month for SOB, felt to be r/t to pneumonitis r/t Enhertu. She was treated again with steroid taper. Pt states SOB was initially improving on higher dose steroids but SOB progressed as the taper decreased. She had cycle 1 of cyramza/taxol on 06/02. She states that since she has been experiencing shortness of breath and hypoxia that caused her to present to the emergency room for further evaluation. 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 Upon admit repeat chest x-ray did not show any evidence of pneumothorax. CTA chest negative for pulmonary embolism. With interval development and enlargement of multiple soft tissue masses in the mid upper abdomen, retrocrural and periaortic region in addition to enlargement to new mediastinal and lower neck soft tissue masses. Of note does report that these masses were previously noted on CT chest from 05/01/2025 but are more conspicuous and have enlarged. Patient was also found to have mildly elevated serial troponins. BNP elevated at 7770. Elevated LFTs, bilirubin 1.2. WBC 8.9, hemoglobin 14.9, platelets 81,000. Creatinine 0.80, GFR 76. Pulmonology is following. Patient has been started on high-dose steroids, with Solu-Medrol 60 mg every 6 hours. Patient is also reporting since admit she has been experiencing episodes of tachycardia with associated chest pressure and dizziness. Cardiology has been consulted On 06/08/2025, the patient is being seen for a follow-up. The patient was hospitalized for worsening shortness of breath and hypoxemic respiratory failure. She is known to have metastatic esophageal cancer, details as discussed earlier and the patient is suspected to have acute pneumonitis related to Enhertu treatment. Based on that, the treatment was discontinued the patient was subjected to the higher dose prednisone. She was discharged home on 70 mg of prednisone and she was being gradually tapered down by 10 mg every week and she was down to 40 mg. By then, she had progressive worsening in oxygenation and shortness of breath and she was brought into the hospital for hypoxia as per the failure because she is on 10 L of oxygen by nasal cannula. Noted, the patient was given a combination of Taxol and Cyramza post her discharge. Oncology is on the case. The patient is calm and comfortable. This morning, she is on 8 L of oxygen by nasal cannula. I reviewed the CTA of the chest and it shows diffuse pneumonitis and there is also development of a small to moderate size left-sided pleural effusion. The patient is currently on IV Solu- Medrol. The BUN is 43 with a creatinine of 0.88 and a sodium levels at 138 and a potassium level of 3.9. She is currently on NovoLog sliding scale coverage for blood sugar control. She is also on anticoagulation with Eliquis. No altered mentation. Family at the bedside. Her cardiac rhythm is sinus with a left anterior fascicular block. On today's evaluation of 06/09/2025, the patient is being seen for a follow-up. Clinically stable and the patient has no interval worsening shortness of breath. She is currently on IV Solu-Medrol for drug-induced pneumonitis and the patient is currently on 7 L of O2 by nasal cannula. Her cardiac rhythm is sinus. She remains on IV Solu-Medrol 60 mg every 6 hours. She is also on anticoagulation with Eliquis 5 mg p.o. twice a day. She is on metoprolol 25 mg twice a day. Rest of her medications are essentially unchanged. The blood work shows a blood sugar of 200. BUN was 43 and a creatinine of 0.8 from yesterday. Awake and alert and communicating. No other significant events overnight. She will be provided incentive spirometer. Will also consult physical therapy. On today's evaluation of 06/10/2025, the patient is being seen for a follow-up. Overnight, the patient was having some increased shortness of breath and hypoxemia. Based on that, the patient was placed on oxygen at 10 L/min nasal cannula. Furthermore, the patient was having difficulties in swallowing. Her oral intake was quite diminished. On examination, the patient has extensive oropharyngeal candidiasis with tongue involvement. Based on the worsening in the oxygenation, chest x-ray was ordered and reviewed. Chest x-ray findings are essentially similar with mild to moderate cardiomegaly and diffuse interstitial and patchy opacities bilaterally. Findings are essentially unchanged. She continues to have reflux. She is on IV Protonix. Maalox will be also added. She is on Lasix 40 mg p.o. daily. She remains on anticoagulation with Eliquis 5 mg p.o. twice a day. On today's evaluation of 06/11/2025, the patient has been weaned down to 8 L of O2 nasal cannula. Overall respiratory status is unchanged the patient remains on IV Solu-Medrol. Chest x-ray from yesterday shows no major interval change with diffuse reticular changes bilaterally. The patient was also started on Diflucan for extensive oropharyngeal candidiasis. Symptoms have improved in the candidal throat infection seems to be subsiding. She is also on IV Protonix and Maalox for heartburn and the symptoms have also improved. She is afebrile. She is using incentive spirometer. White seconds at 4.9 with hemoglobin 16 and platelet count of 69. BUN is 31 with a creatinine of 0.6 and a sodium level of 133 and potassium is at 5.2. LFTs are mildly abnormal with a AST of 95, ALT of 110 and alkaline phosphatase of 215. Total protein is at 6 with a albumin level of 3.1. Procalcitonin level is at 0.16. She remains on Lasix. She remains on anticoagulation with Eliquis. On today's evaluation of 06/12/2025, the patient's overall respiratory status the patient remains on 8 L of oxygen by nasal cannula. The patient had a follow-up chest x-ray that shows essentially stable interstitial and alveolar infiltrates bilaterally which remains essentially unchanged and the patient remains on IV Solu-Medrol. Oropharyngeal candidiasis improved and the oral intake is quite diminished. Noted the patient has esophageal cancer and the patient was given a PEG tube in the past. Current oral intake is diminished. Will consult general surgery again in consideration for another PEG tube insertion. Meanwhile, if it is reasonable to start the patient on TPN for nutritional support. Remains on Diflucan. Remains anticoagulation with Eliquis. Rest of the medications are essentially unchanged. The white cell count is 4.9 with a heme of 16. BUN is 51 with a creatinine of 0.6 and a sodium level is 133 and a potassium level is at 5.2. LFTs are mildly elevated. Objective - Vital Signs Vital signs: Vital Signs Temp 97.4 F L 06/12/25 08:14 Pulse 80 06/12/25 09:40 Resp 18 06/12/25 09:40 BP 135/87 06/12/25 08:14 Pulse Ox 92 L 06/12/25 09:28 FiO2 Intake & Output 06/11/25 06/12/25 06/12/25 18:59 06:59 18:59 Intake Total 120 20 Output Total 550 500 Balance -430 -480 Weight 66 kg 61.5 kg Intake: IV 20 Invasive Line 3 20 Oral 120 Output: Urine 550 500 Other: Voiding Method External Catheter External Catheter - Exam The patient appeared well nourished and normally developed. Vital signs as documented. The patient is anxious. The patient is currently on 8 L of O2 nasal cannula. Head exam is unremarkable. No scleral icterus or corneal arcus noted. Neck is without jugular venous distension, thyromegaly, or carotid bruits. Carotid upstrokes are brisk bilaterally. The patient has extensive oropharyngeal candidiasis which is improving on today's examination. Lungs are clear to auscultation and percussion. Crackles are somewhat coarse in the midline lower lung pearl bilaterally. Cardiac exam reveals the PMI to be normally sized and situated. Rhythm is regular. First and second heart sounds normal. No murmurs, rubs or gallops. Abdominal exam reveals normal bowel sounds, no masses, no organomegaly and no aortic enlargement. Extremities are nonedematous and both femoral and pedal pulses are normal. Examination of the skin revealed no evidence of significant rashes, suspicious appearing nevi or other concerning lesions. Neurologically, the patient is awake and alert and the patient does not have any focal neurological deficit. Cranial nerves are essentially intact. - Labs CBC & Chem 7: 06/11/25 09:54 06/11/25 09:54 Labs: Abnormal Lab Results - Last 24 Hours (Table) 06/11/25 06/11/25 06/11/25 Range/Units 09:54 09:54 11:27 Hgb 16.0 H (12.0-15.0) g/dL MCV 102.2 H (80.0-97.0) fL MCH 35.6 H (27.0-32.0) pg Plt Count 69 L (140-440) 10*3/uL Lymphocytes # (Manual) 0.30 L (1.0-4.8) k/uL Sodium 133 L (137-145) mmol/L Potassium 5.2 H (3.5-5.1) mmol/L Chloride 90 L (98-107) mmol/L Carbon Dioxide 34 H (22-30) mmol/L BUN 51 H (7-17) mg/dL Glucose 217 H (74-99) mg/dL POC Glucose (mg/dL) 211 H (70-110) mg/dL Total Bilirubin 1.5 H (0.2-1.3) mg/dL AST 95 H (14-36) U/L ALT 110 H (4-34) U/L Alkaline Phosphatase 215 H (38-126) U/L Total Protein 6.0 L (6.3-8.2) g/dL Albumin 3.1 L (3.5-5.0) g/dL 06/11/25 06/11/25 06/12/25 Range/Units 16:16 19:52 06:21 Hgb (12.0-15.0) g/dL MCV (80.0-97.0) fL MCH (27.0-32.0) pg Plt Count (140-440) 10*3/uL Lymphocytes # (Manual) (1.0-4.8) k/uL Sodium (137-145) mmol/L Potassium (3.5-5.1) mmol/L Chloride (98-107) mmol/L Carbon Dioxide (22-30) mmol/L BUN (7-17) mg/dL Glucose (74-99) mg/dL POC Glucose (mg/dL) 158 H 175 H 141 H (70-110) mg/dL Total Bilirubin (0.2-1.3) mg/dL AST (14-36) U/L ALT (4-34) U/L Alkaline Phosphatase (38-126) U/L Total Protein (6.3-8.2) g/dL Albumin (3.5-5.0) g/dL Assessment and Plan Plan: Acute hypoxic respiratory failure, currently requiring 8 L of high flow oxygen by nasal cannula. CT angiogram ruled out pulmonary embolism. There is interval development and significant enlargement of multiple soft tissue masses in the mid upper abdomen, retrocrural and periaortic region in addition to enlargement and new mediastinal and lower neck soft tissue masses. Diffuse parenchymal groundglass changes, in addition to a small left-sided pleural effusion that was not present on earlier CAT scan of the chest. Findings are still consistent with diffuse drug-induced pneumonitis probably related to Enhertu treatment but the patient received earlier for treatment of metastatic esophageal cancer. The patient remains on IV Solu-Medrol. Overall respiratory status is unchanged and the chest x-ray findings from 06/12/2025 remains unchanged and stable bilateral pulmonary infiltrates. 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 Suspect Enhertu related pneumonitis. There has been obvious decompensation of respiratory status with the tapering dose of prednisone. Acute on chronic shortness of breath secondary to above. Clinically stable Extensive oropharyngeal candidiasis, improving on IV Diflucan, improving Active heartburn, currently on IV Protonix and Maalox, improved Metastatic esophageal cancer with development of esophageal and mediastinal lymphadenopathy. The patient was recently given a combination of Taxol and Cyramza on outpatient basis. Continues to have difficulty swallowing and diminished oral intake. Will need nutritional support. Will start TPN and will consult GI surgery consultation for PEG tube insertion. COPD. Elevated troponin, type II NSTEMI, more likely related to malignancy and demand supply mismatch History of ovarian cancer. Chronic anxiety. Chronic back pain. Hypertension. Hyperlipidemia. Former smoker. Plan: Continue monitoring the patient's oxygenation currently on 8 L of oxygen by nasal cannula Continue IV Solu-Medrol 60 mg every 6 hours Provide incentive spirometer IV Protonix 40 mg every 12 hours Maalox 20 cc 4 times a day IV Diflucan 100 mg daily Physical therapy The oral intake remains quite diminished. Will obtain a dietary consultation for TPN and the patient has a Mediport. At the same time, we will obtain a general surgery consultation incarceration for a PEG tube insertion. This may be potentially technically difficult as the patient esophageal cancer and probably some significant narrowing in the esophagus which may complicate the procedure. Ultrasound of the chest was done and there is no sizable effusion on the left. Follow-up chest x-ray was noted NovoLog sliding scale as insulin coverage for blood sugar control Continue anticoagulation with Eliquis Case was discussed with medical oncology and with the family at the bedside. Time with Patient: Greater than 30
--- NOTE | 2025-06-12 14:20 | P.GSCN ---
History of Present Illness Consult date: 06/12/25 Reason for Consult: Dysphagia History of present illness: 69-year-old female known to our service. Patient with diagnosis of metastatic esophageal cancer last year. Patient has been intermittently on palliative chemotherapy. Recently started a third agent last week. Patient apparently had severe pneumonitis with her second course of therapy. We had a PEG tube in the patient that was removed. Unfortunately after removal patient had a fistula that required closure at [facility] endoscopically. Patient now eating less and family concerned about progressive malnutrition. Patient has been considering whether to continue with treatment. Earlier today she mentioned to her daughter that she might be willing to quit however now is stating that she wants to move forward. Awaiting oncology to see the patient today. We were consulted for possible PEG tube placement. Recent CT chest shows no definitive esophageal obstruction. Past Medical History Past Medical History: Cancer, COPD, GERD/Reflux, Hyperlipidemia, Hypertension, Osteoarthritis (OA), Pneumonia, Thyroid Disorder Additional Past Medical History / Comment(s): OVARIAN CANCER (DX 02/2015) LAST CHEMO May 2025, IBS,CHRONIC BACK PAIN, HX OF BRONCHITIS. cancer reoccurence - mass in esophagus and liver History of Any Multi-Drug Resistant Organisms: None Reported Past Surgical History: Cholecystectomy, Hysterectomy, Orthopedic Surgery, Tubal Ligation Additional Past Surgical History / Comment(s): PORT-A-CATH RT CHEST(04/2015),and removal of port, COLONOSCOPY,. EXCISION LIPOMA FROM ABD. WALL. Total Hysterectomy. LT FEMUR x2. knee replacement 03/2021 Past Anesthesia/Blood Transfusion Reactions: No Reported Reaction Additional Past Anesthesia/Blood Transfusion Reaction / Comm: NO COMPLICATIONS WITH BLOOD TRANSFUSION. Past Psychological History: Anxiety Smoking Status: Former smoker Past Alcohol Use History: None Reported Additional Past Alcohol Use History / Comment(s): QUIT SMOKING 2004,STARTED 1984. SMOKED LESS THAN 1 PPD. DRINKS 3 PER WEEK, NO ALCOHOL IN THE LAST COUPLE WEEKS. Past Drug Use History: None Reported - Past Family History Mother Family Medical History: Cancer Additional Family Medical History / Comment(s): SQUAMOUS CELL CA-NECK. Father History Unknown: Yes Medications and Allergies Home Medications Medication Instructions Recorded Confirmed Type Levothyroxine Sodium [Synthroid] 88 mcg PO DAILY@0600 06/30/15 06/05/25 History Omeprazole 20 mg PO DAILY 06/30/15 06/05/25 History ALPRAZolam [Xanax] 0.25 mg PO BID PRN 07/31/17 06/05/25 History Pravastatin Sodium 80 mg PO HS 08/03/20 06/05/25 History Mirtazapine [Remeron] 15 mg PO HS 06/26/24 06/05/25 History Fluticasone Propion/Salmeterol 1 puff INHALATION RT-BID 05/01/25 06/05/25 His tory [Advair 250-50 Diskus] Magnesium Oxide [Mag-Ox] 400 mg PO DAILY 05/01/25 06/05/25 History Potassium Chloride ER [K-Dur 20] 20 meq PO DAILY 05/01/25 06/05/25 History Apixaban [Eliquis] 5 mg PO BID #60 tab 05/08/25 06/05/25 Rx Albuterol Nebulized [Ventolin 2.5 mg INHALATION RT-DAILY 06/05/25 06/05/25 History Nebulized] Albuterol Nebulized [Ventolin 2.5 mg INHALATION RT-TID PRN 06/05/25 06/05/25 History Nebulized] Furosemide [Lasix] 20 mg PO DAILY 06/05/25 06/05/25 History HYDROcodone/APAP 10-325MG [[place] 1 tab PO Q4H PRN 06/05/25 06/05/25 History 10-325] Metoprolol Tartrate [Lopressor] 12.5 mg PO BID 06/05/25 06/05/25 History predniSONE 60 mg PO DAILY 06/05/25 06/05/25 History Allergies Allergy/AdvReac Type Severity Reaction Status Date / Time amoxicillin Allergy Rash/Hives Verified 06/05/25 17:49 Surgical - Exam Vital Signs Temp Pulse Resp BP Pulse Ox 97.1 F L 80 18 163/101 96 06/05/25 16:08 06/05/25 16:08 06/05/25 16:08 06/05/25 16:08 06/05/25 16:08 Physical exam: General: Elderly female. Appears somewhat malnourished. HEENT: Normocephalic, sclerae nonicteric Abdomen: Nontender, nondistended, PEG tube site noted from previous Extremities: No edema Neuro: Alert and oriented Results - Labs 06/11/25 09:54 06/11/25 09:54 Abnormal Lab Results - Last 24 Hours (Table) 06/11/25 06/11/25 06/12/25 Range/Units 16:16 19:52 06:21 POC Glucose (mg/dL) 158 H 175 H 141 H (70-110) mg/dL 06/12/25 Range/Units 11:41 POC Glucose (mg/dL) 280 H (70-110) mg/dL Assessment and Plan (1) Esophageal adenocarcinoma Narrative/Plan: 69-year-old female with esophageal cancer. Family and patient considering PEG tube replacement. Await their decision after they meet with oncology. Current Visit: Yes Status: Chronic Priority: Medium Code(s): C15.9 - MALIGNANT NEOPLASM OF ESOPHAGUS, UNSPECIFIED SNOMED Code(s): 312566473
[2025-06-12 15:58] LABS: Bacteria,Urine Occasional /hpf; Bilirubin,Urine Negative (Negative); Blood,Urine Moderate (Negative); Color,Urine Colorless; Glucose,Urine (UA) Negative (Negative); Ketones,Urine Negative (Negative); Leukocyte Esterase,Urine Large (Negative); Mucus,Urine Rare /hpf; Nitrite,Urine Negative (Negative); PH, Urine 6.5 (5.0-8.0); Protein,Urine Negative (Negative); RBC,Urine 3 /hpf (0-5); Specific Gravity,Urine 1.013 (1.001-1.035); Urobilinogen,Urine <2.0 mg/dL (<2.0); WBC,Urine 11 /hpf (0-5)
--- NOTE | 2025-06-12 16:28 | P.PN ---
Subjective Progress Note Date: 06/12/25 Reporting persisting SOB. Continues on high flow O2, 8L. Continues high dose steroids and bronchodilators. Had detailed discussion with patient and family today regarding prognosis, treatment vs comfort care measures. Pt at this would like to see how her breathing does over the next couple days before making any decisions regarding hospice. Objective - Vital Signs Vital signs: Vital Signs Temp 97.6 F 06/12/25 12:29 Pulse 75 06/12/25 13:14 Resp 18 06/12/25 13:14 BP 121/83 06/12/25 12:29 Pulse Ox 94 L 06/12/25 12:29 FiO2 Intake & Output 06/11/25 06/12/25 06/12/25 18:59 06:59 18:59 Intake Total 120 20 100 Output Total 550 500 Balance -430 -480 100 Weight 66 kg 61.5 kg 61.5 kg Intake: IV 20 Invasive Line 3 20 Oral 120 100 Output: Urine 550 500 Other: Voiding Method External Catheter External Catheter External Catheter # Bowel Movements 1 - Constitutional General appearance: Present: no acute distress - EENT Eyes: Present: anicteric sclerae, EOMI ENT: Present: hearing grossly normal - Respiratory Details: breathing is labored - Cardiovascular Details: skin warm and dry - Musculoskeletal Musculoskeletal: Present: generalized weakness - Psychiatric Psychiatric Comment(s): tearful - Labs CBC & Chem 7: 06/11/25 09:54 06/11/25 09:54 Labs: Abnormal Lab Results - Last 24 Hours (Table) 06/11/25 06/12/25 06/12/25 Range/Units 19:52 06:21 11:41 POC Glucose (mg/dL) 175 H 141 H 280 H (70-110) mg/dL Urine Appearance (Clear) Urine Blood (Negative) Ur Leukocyte Esterase (Negative) Urine WBC (0-5) /hpf Urine Bacteria (None) /hpf Urine Mucus (None) /hpf 06/12/25 Range/Units 15:19 POC Glucose (mg/dL) (70-110) mg/dL Urine Appearance Cloudy H (Clear) Urine Blood Moderate H (Negative) Ur Leukocyte Esterase Large H (Negative) Urine WBC 11 H (0-5) /hpf Urine Bacteria Occasional H (None) /hpf Urine Mucus Rare H (None) /hpf Assessment and Plan (1) Elevated troponin Current Visit: Yes Status: Acute Code(s): R77.8 - OTHER SPECIFIED ABNORMALITIES OF PLASMA PROTEINS SNOMED Code(s): 466521415 (2) Hypoxia Current Visit: Yes Status: Acute Priority: High Code(s): R09.02 - HYPOXEMIA SNOMED Code(s): 879430642 (3) Esophageal adenocarcinoma Current Visit: Yes Status: Chronic Priority: Medium Code(s): C15.9 - MALIGNANT NEOPLASM OF ESOPHAGUS, UNSPECIFIED SNOMED Code(s): 358939169 Plan: SOB -CTA negative for PE. With interval development and enlargement of multiple soft tissue masses in the mid upper abdomen, retrocrural and periaortic region in addition to enlargement to new mediastinal and lower neck soft tissue masses. Pt just started on new treatment regimen. -Pulmonology following. Discussed with Pulm. Patient has been started on high- dose steroids, with Solu-Medrol 60 mg every 6 hours. -Patient reporting since admit she has been experiencing episodes of tachycardia with associated chest pressure and dizziness. She was found to be in SVT. NSTEMI on admit. Cardiology following -SOB persisting, requiring high flow oxygen. Plan for now is to continue steroid and bronchodilators. Thrush: -Diflucan and Kools solution started Metatstatic esophageal carcinoma -Diagnostic and therapeutic circumstances as described in consult. -Patient completed cycle 1 of taxol/cyramza on 06/02. Noted progression on CTA chest, not consistent with tx failure. She has been off treatment and just restarted new treatment regimen on 06/02 -SOB symptoms persisting prior to treatment. Tx on hold until acute condition resolved Had detailed discussion with patient and family today regarding prognosis, and treatment vs comfort care measures. Pt at this time would like to see how her breathing does over the next couple days before making any decisions regarding hospice. She is stating she would like to try one more treatment if her breathing can show improvement. We also discussed PEG placement, at this time we would recommend holding PEG, until we see how patient breathing does over the next couple days. She was agreeable to the same Doctor attests: I performed a history and physical examination of this patient, developed impression and plan of care. Discussed with dictator. I agree with dictators note, documented as a scribe. Time with Patient: Greater than 30
[2025-06-12 16:36] LABS: Glucose,Whole Blood 236 mg/dL (70-110)
[2025-06-12 20:04] LABS: Glucose,Whole Blood 197 mg/dL (70-110)
[2025-06-13 06:13] LABS: Glucose,Whole Blood 183 mg/dL (70-110)
[2025-06-13 07:18] LABS: Basophils # (A) 0.02 10*3/uL (0.00-0.10); Basophils % (A) 0.4 %; Eosinophils # (A) 0.00 10*3/uL (0.04-0.35); Eosinophils % (A) 0.0 %; HCT 45.6 % (37.2-46.3); HGB 15.5 g/dL (12.0-15.0); Lymphocytes # (A) 0.24 10*3/uL (0.90-5.00); Lymphocytes % (A) 5.0 %; MCH 34.7 pg (27.0-32.0); MCHC 34.0 g/dL (32.0-37.0); MCV 102.0 fL (80.0-97.0); Monocytes # (A) 0.28 10*3/uL (0.20-1.00); Monocytes % (A) 5.9 %; Neutrophils # (A) 4.15 10*3/uL (1.80-7.70); Neutrophils % (A) 87.2 %; Platelet Count 100 10*3/uL (140-440); RBC 4.47 10*6/uL (4.10-5.20); RDW 12.1 % (11.5-14.5); WBC 4.76 10*3/uL (4.50-10.00)
[2025-06-13 07:39] LABS: African American GFR (CKD) >90 (>60 ml/min/1.73 sqM); Blood Urea Nitrogen 49 mg/dL (7-17); Calcium 9.7 mg/dL (8.4-10.2); Chloride 91 mmol/L (98-107); Glucose 138 mg/dL (74-99); Non-African American GFR(CKD) 79 (>60 ml/min/1.73 sqM); Potassium 4.3 mmol/L (3.5-5.1); Sodium 135 mmol/L (137-145)
[2025-06-13 07:46] LABS: Anion Gap 8 mmol/L
[2025-06-13 07:52] LABS: Carbon Dioxide 36 mmol/L (22-30)
[2025-06-13 11:20] LABS: Glucose,Whole Blood 193 mg/dL (70-110)
--- NOTE | 2025-06-13 13:28 | P.PN ---
Subjective Progress Note Date: 06/13/25 Principal diagnosis: esogheal cancer, dyspnea, related to chemo therapy pt is awake alert vss afebrile patient having difficulty breathing steroid IV increased her pulmonary medicine oxygen requirements adjusted according to patient's needs, currently high flow at 8 L to maintain sats above 90 Objective - Vital Signs Vital signs: Vital Signs Temp 97.4 F L 06/13/25 08:04 Pulse 75 06/13/25 12:09 Resp 17 06/13/25 11:03 BP 113/77 06/13/25 11:03 Pulse Ox 92 L 06/13/25 11:03 FiO2 Intake & Output 06/12/25 06/13/25 06/13/25 18:59 06:59 18:59 Intake Total 640 480 Output Total 150 Balance 640 -150 480 Weight 61.5 kg 73.5 kg Intake: Oral 640 480 Output: Urine 150 Other: Voiding Method External Catheter External Catheter External Catheter # Bowel Movements 1 - Exam General: [Patient awake, alert and oriented times 3. Patient in no acute distress.] HEENT: [PERRL. EOMI. No pharyngeal erythema or exudate.] Neck: [No adenopathy.] Cardiac: [Heart regular in rate and rhythm. No S3. No S4. No clicks, rubs. No murmur.] Lungs: [Clear to auscultation bilaterally.] Abdomen: [No mass. No organomegaly. Bowel sounds presnt and normoactive in all 4 quadrants.] Extremes: [No edema no cyanosis no claudication normal pulses] : normal physical exam Musculoskeletal: [No joint erythema, edema or tenderness.] Skin: [No rash.] Neurologic: [No lateralizing deficits. CN II - XII grossly intact.] Lymphatic: [No adenopathy.] - Labs CBC & Chem 7: 06/13/25 06:01 06/13/25 06:01 Labs: Abnormal Lab Results - Last 24 Hours (Table) 06/12/25 06/12/25 06/12/25 Range/Units 15:19 16:35 20:02 Hgb (12.0-15.0) g/dL MCV (80.0-97.0) fL MCH (27.0-32.0) pg Plt Count (140-440) 10*3/uL Immature Gran # (0.00-0.04) 10*3/uL Lymphocytes # (0.90-5.00) 10*3/uL Eosinophils # (0.04-0.35) 10*3/uL Sodium (137-145) mmol/L Chloride (98-107) mmol/L Carbon Dioxide (22-30) mmol/L BUN (7-17) mg/dL Glucose (74-99) mg/dL POC Glucose (mg/dL) 236 H 197 H (70-110) mg/dL Urine Appearance Cloudy H (Clear) Urine Blood Moderate H (Negative) Ur Leukocyte Esterase Large H (Negative) Urine WBC 11 H (0-5) /hpf Urine Bacteria Occasional H (None) /hpf Urine Mucus Rare H (None) /hpf 06/13/25 06/13/25 06/13/25 Range/Units 06:01 06:01 06:11 Hgb 15.5 H (12.0-15.0) g/dL MCV 102.0 H (80.0-97.0) fL MCH 34.7 H (27.0-32.0) pg Plt Count 100 L (140-440) 10*3/uL Immature Gran # 0.07 H (0.00-0.04) 10*3/uL Lymphocytes # 0.24 L (0.90-5.00) 10*3/uL Eosinophils # 0.00 L (0.04-0.35) 10*3/uL Sodium 135 L (137-145) mmol/L Chloride 91 L (98-107) mmol/L Carbon Dioxide 36 H (22-30) mmol/L BUN 49 H (7-17) mg/dL Glucose 138 H (74-99) mg/dL POC Glucose (mg/dL) 183 H (70-110) mg/dL Urine Appearance (Clear) Urine Blood (Negative) Ur Leukocyte Esterase (Negative) Urine WBC (0-5) /hpf Urine Bacteria (None) /hpf Urine Mucus (None) /hpf 06/13/25 Range/Units 11:18 Hgb (12.0-15.0) g/dL MCV (80.0-97.0) fL MCH (27.0-32.0) pg Plt Count (140-440) 10*3/uL Immature Gran # (0.00-0.04) 10*3/uL Lymphocytes # (0.90-5.00) 10*3/uL Eosinophils # (0.04-0.35) 10*3/uL Sodium (137-145) mmol/L Chloride (98-107) mmol/L Carbon Dioxide (22-30) mmol/L BUN (7-17) mg/dL Glucose (74-99) mg/dL POC Glucose (mg/dL) 193 H (70-110) mg/dL Urine Appearance (Clear) Urine Blood (Negative) Ur Leukocyte Esterase (Negative) Urine WBC (0-5) /hpf Urine Bacteria (None) /hpf Urine Mucus (None) /hpf Assessment and Plan (1) Elevated troponin Current Visit: Yes Status: Acute Code(s): R77.8 - OTHER SPECIFIED A BNORMALITIES OF PLASMA PROTEINS SNOMED Code(s): 979728010 (2) Hypoxia Current Visit: Yes Status: Acute Priority: High Code(s): R09.02 - HYPOXEMIA SNOMED Code(s): 201586618 (3) Pleural effusion Current Visit: Yes Status: Acute Code(s): J90 - PLEURAL EFFUSION, NOT ELSEWHERE CLASSIFIED SNOMED Code(s): 45767903 (4) Pulmonary fibrosis Current Visit: Yes Status: Acute Code(s): J84.10 - PULMONARY FIBROSIS, UNSPECIFIED SNOMED Code(s): 79357262 (5) Esophageal adenocarcinoma Current Visit: Yes Status: Chronic Priority: Medium Code(s): C15.9 - MALIGNANT NEOPLASM OF ESOPHAGUS, UNSPECIFIED SNOMED Code(s): 004450544 Plan: Patient reluctant at this time to change to no code\comfort care status, wishes to assess oxygen requirements over the next couple of days to she is going to improve before she makes this decision Current diagnosis esophageal carcinoma, resuming chemotherapy Will continue to follow Time with Patient: Greater than 30
--- NOTE | 2025-06-13 15:28 | P.PN ---
Subjective Progress Note Date: 06/13/25 Principal diagnosis: Metastatic esophageal adenocarcinoma - No acute events overnight - Currently on 7 L high flow nasal cannula and notes feeling improved on today's visit compared to yesterday - Daughter and son at bedside noted that she reported feeling irritation at the back of the throat, but denies any overt odynophagia Objective - Vital Signs Vital signs: Vital Signs Temp 97.4 F L 06/13/25 08:04 Pulse 75 06/13/25 12:09 Resp 17 06/13/25 11:03 BP 113/77 06/13/25 11:03 Pulse Ox 92 L 06/13/25 11:03 FiO2 Intake & Output 06/12/25 06/13/25 06/13/25 18:59 06:59 18:59 Intake Total 640 480 Output Total 150 Balance 640 -150 480 Weight 61.5 kg 73.5 kg Intake: Oral 640 480 Output: Urine 150 Other: Voiding Method External Catheter External Catheter External Catheter # Bowel Movements 1 - Constitutional Constitutional Comment(s): Fatigued appearing General appearance: Present: cooperative, no acute distress - EENT Eyes: Present: EOMI - Respiratory Details: Labored breathing with intermittent conversational dyspnea - Cardiovascular Details: Warm and well-perfused - Gastrointestinal General gastrointestinal: Present: soft. Absent: distended - Integumentary Integumentary: Present: pale - Neurologic Neurologic: Present: CNII-XII intact. Absent: focal deficits - Psychiatric Psychiatric: Present: A&O x's 3 - Labs CBC & Chem 7: 06/13/25 06:01 06/13/25 06:01 Labs: Abnormal Lab Results - Last 24 Hours (Table) 06/12/25 06/12/25 06/12/25 Range/Units 15:19 16:35 20:02 Hgb (12.0-15.0) g/dL MCV (80.0-97.0) fL MCH (27.0-32.0) pg Plt Count (140-440) 10*3/uL Immature Gran # (0.00-0.04) 10*3/uL Lymphocytes # (0.90-5.00) 10*3/uL Eosinophils # (0.04-0.35) 10*3/uL Sodium (137-145) mmol/L Chloride (98-107) mmol/L Carbon Dioxide (22-30) mmol/L BUN (7-17) mg/dL Glucose (74-99) mg/dL POC Glucose (mg/dL) 236 H 197 H (70-110) mg/dL Urine Appearance Cloudy H (Clear) Urine Blood Moderate H (Negative) Ur Leukocyte Esterase Large H (Negative) Urine WBC 11 H (0-5) /hpf Urine Bacteria Occasional H (None) /hpf Urine Mucus Rare H (None) /hpf 06/13/25 06/13/25 06/13/25 Range/Units 06:01 06:01 06:11 Hgb 15.5 H (12.0-15.0) g/dL MCV 102.0 H (80.0-97.0) fL MCH 34.7 H (27.0-32.0) pg Plt Count 100 L (140-440) 10*3/uL Immature Gran # 0.07 H (0.00-0.04) 10*3/uL Lymphocytes # 0.24 L (0.90-5.00) 10*3/uL Eosinophils # 0.00 L (0.04-0.35) 10*3/uL Sodium 135 L (137-145) mmol/L Chloride 91 L (98-107) mmol/L Carbon Dioxide 36 H (22-30) mmol/L BUN 49 H (7-17) mg/dL Glucose 138 H (74-99) mg/dL POC Glucose (mg/dL) 183 H (70-110) mg/dL Urine Appearance (Clear) Urine Blood (Negative) Ur Leukocyte Esterase (Negative) Urine WBC (0-5) /hpf Urine Bacteria (None) /hpf Urine Mucus (None) /hpf 06/13/25 Range/Units 11:18 Hgb (12.0-15.0) g/dL MCV (80.0-97.0) fL MCH (27.0-32.0) pg Plt Count (140-440) 10*3/uL Immature Gran # (0.00-0.04) 10*3/uL Lymphocytes # (0.90-5.00) 10*3/uL Eosinophils # (0.04-0.35) 10*3/uL Sodium (137-145) mmol/L Chloride (98-107) mmol/L Carbon Dioxide (22-30) mmol/L BUN (7-17) mg/dL Glucose (74-99) mg/dL POC Glucose (mg/dL) 193 H (70-110) mg/dL Urine Appearance (Clear) Urine Blood (Negative) Ur Leukocyte Esterase (Negative) Urine WBC (0-5) /hpf Urine Bacteria (None) /hpf Urine Mucus (None) /hpf Assessment and Plan (1) Primary adenocarcinoma of esophagus with metastasis Current Visit: Yes Status: Acute Code(s): C15.9 - MALIGNANT NEOPLASM OF ESOPHAGUS, UNSPECIFIED SNOMED Code(s): 553654450 (2) Pneumonitis Current Visit: Yes Status: Acute Code(s): J98.4 - OTHER DISORDERS OF LUNG SNOMED Code(s): 894981828 (3) Carla esophagitis Current Visit: Yes Status: Acute Code(s): B37.81 - CANDIDAL ESOPHAGITIS SNOMED Code(s): 40490788 Plan: #Drug-induced pneumonitis secondary to Enhertu -CTA negative for PE. With interval development and enlargement of multiple soft tissue masses in the mid upper abdomen, retrocrural and periaortic region in addition to enlargement to new mediastinal and lower neck soft tissue masses. Pt just started on new treatment regimen. -Pulmonology following. Discussed with Pulm. Patient has been started on high- dose steroids, with Solu-Medrol 60 mg every 6 hours -She continues to require 7 to 8 L of high flow nasal cannula despite high-dose steroids with Solu-Medrol 60 mg IV every 6 hours -SOB persisting, requiring high flow oxygen. Plan for now is to continue steroid and bronchodilators -Note goals of care discussion below #Carla esophagitis -Continue Diflucan and Kools solution with noted clinical improvement today -Defer PEG tube for now #Metatstatic esophageal adenocarcinoma -Diagnostic and therapeutic circumstances as described in consult. -Patient completed cycle 1 of taxol/cyramza on 06/02. Noted progression on CTA chest, not consistent with tx failure. She has been off treatment and just restarted new treatment regimen on 06/02 -SOB symptoms persisting prior to treatment. Tx on hold until acute condition resolved -Extensive goals of care discussion took place on 06/12/2025. For now, we will continue to see how her breathing evolves over the course of this weekend before making any decisions regarding to hospice Lester Castillo MD
[2025-06-13 16:13] LABS: Glucose,Whole Blood 197 mg/dL (70-110)
--- NOTE | 2025-06-13 17:49 | P.PN ---
Subjective Progress Note Date: 06/13/25 Ms. Real is a 69-year-old female with multiple comorbidities including history of ovarian cancer status post resection and chemotherapy. In 02/16, she was diagnosed with distal esophageal cancer, metastatic, and was started on palliative chemotherapy with FOLFOX and Herceptin completing 9 cycles. Due to intolerance, her regimen was changed to Herceptin and 5FU infusion only. The patient was subsequently changed to Enhertu on progression. She was on the same till about 03/20, at which time she developed progressive shortness of breath. She had CT scans of the chest done in the [facility] system, most recently in 03/20, that were concerning for pneumonitis, showing bilateral infiltrative changes and groundglass opacities, more prominent in the lung apices. As this is a known side effect of her regimen, that was discontinued, and the patient was placed on steroids. She completed her steroid taper in late 04/19, with improvement in her respiratory complaints. The patient's subsequent imaging had shown evidence of progression, and the plan was to change her to Taxol and Cyramza, with cycle 1 being delayed r/t admission last month for SOB, felt to be r/t to pneumonitis r/t Enhertu. She was treated again with steroid taper. Pt states SOB was initially improving on higher dose steroids but SOB progressed as the taper decreased. She had cycle 1 of cyramza/taxol on 06/02. She states that since she has been experiencing shortness of breath and hypoxia that caused her to present to the emergency room for further evaluation. She was seen by her lead electrical controls engineer, which there was possible concern for collapsed lung?. Upon admit repeat chest x-ray did not show any evidence of pneumothorax. CTA chest negative for pulmonary embolism. With interval development and enlargement of multiple soft tissue masses in the mid upper abdomen, retrocrural and periaortic region in addition to enlargement to new mediastinal and lower neck soft tissue masses. Of note does report that these masses were previously noted on CT chest from 05/01/2025 but are more conspicuous and have enlarged. Patient was also found to have mildly elevated serial troponins. BNP elevated at 7770. Elevated LFTs, bilirubin 1.2. WBC 8.9, hemoglobin 14.9, platelets 81,000. Creatinine 0.80, GFR 76. Pulmonology is following. Patient has been started on high-dose steroids, with Solu-Medrol 60 mg every 6 hours. Patient is also reporting since admit she has been experiencing episodes of tachycardia with associated chest pressure and dizziness. Cardiology has been consulted On 06/08/2025, the patient is being seen for a follow-up. The patient was hospitalized for worsening shortness of breath and hypoxemic respiratory failure. She is known to have metastatic esophageal cancer, details as discussed earlier and the patient is suspected to have acute pneumonitis related to Enhertu treatment. Based on that, the treatment was discontinued the patient was subjected to the higher dose prednisone. She was discharged home on 70 mg of prednisone and she was being gradually tapered down by 10 mg every week and she was down to 40 mg. By then, she had progressive worsening in oxygenation and shortness of breath and she was brought into the hospital for hypoxia as per the failure because she is on 10 L of oxygen by nasal cannula. Noted, the patient was given a combination of Taxol and Cyramza post her discharge. Oncology is on the case. The patient is calm and comfortable. This morning, she is on 8 L of oxygen by nasal cannula. I reviewed the CTA of the chest and it shows diffuse pneumonitis and there is also development of a small to moderate size left-sided pleural effusion. The patient is currently on IV Solu- Medrol. The BUN is 43 with a creatinine of 0.88 and a sodium levels at 138 and a potassium level of 3.9. She is currently on NovoLog sliding scale coverage for blood sugar control. She is also on anticoagulation with Eliquis. No altered mentation. Family at the bedside. Her cardiac rhythm is sinus with a left anterior fascicular block. On today's evaluation of 06/09/2025, the patient is being seen for a follow-up. Clinically stable and the patient has no interval worsening shortness of breath. She is currently on IV Solu-Medrol for drug-induced pneumonitis and the patient is currently on 7 L of O2 by nasal cannula. Her cardiac rhythm is sinus. She remains on IV Solu-Medrol 60 mg every 6 hours. She is also on anticoagulation with Eliquis 5 mg p.o. twice a day. She is on metoprolol 25 mg twice a day. Rest of her medications are essentially unchanged. The blood work shows a blood sugar of 200. BUN was 43 and a creatinine of 0.8 from yesterday. Awake and alert and communicating. No other significant events overnight. She will be provided incentive spirometer. Will also consult physical therapy. On today's evaluation of 06/10/2025, the patient is being seen for a follow-up. Overnight, the patient was having some increased shortness of breath and hypoxemia. Based on that, the patient was placed on oxygen at 10 L/min nasal cannula. Furthermore, the patient was having difficulties in swallowing. Her oral intake was quite diminished. On examination, the patient has extensive oropharyngeal candidiasis with tongue involvement. Based on the worsening in the oxygenation, chest x-ray was ordered and reviewed. Chest x-ray findings are essentially similar with mild to moderate cardiomegaly and diffuse interstitial and patchy opacities bilaterally. Findings are essentially unchanged. She continues to have reflux. She is on IV Protonix. Maalox will be also added. She is on Lasix 40 mg p.o. daily. She remains on anticoagulation with Eliquis 5 mg p.o. twice a day. On today's evaluation of 06/11/2025, the patient has been weaned down to 8 L of O2 nasal cannula. Overall respiratory status is unchanged the patient remains on IV Solu-Medrol. Chest x-ray from yesterday shows no major interval change with diffuse reticular changes bilaterally. The patient was also started on Diflucan for extensive oropharyngeal candidiasis. Symptoms have improved in the candidal throat infection seems to be subsiding. She is also on IV Protonix and Maalox for heartburn and the symptoms have also improved. She is afebrile. She is using incentive spirometer. White seconds at 4.9 with hemoglobin 16 and platelet count of 69. BUN is 31 with a creatinine of 0.6 and a sodium level of 133 and potassium is at 5.2. LFTs are mildly abnormal with a AST of 95, ALT of 110 and alkaline phosphatase of 215. Total protein is at 6 with a albumin level of 3.1. Procalcitonin level is at 0.16. She remains on Lasix. She remains on anticoagulation with Eliquis. On today's evaluation of 06/12/2025, the patient's overall respiratory status the patient remains on 8 L of oxygen by nasal cannula. The patient had a follow-up chest x-ray that shows essentially stable interstitial and alveolar infiltrates bilaterally which remains essentially unchanged and the patient remains on IV Solu-Medrol. Oropharyngeal candidiasis improved and the oral intake is quite diminished. Noted the patient has esophageal cancer and the patient was given a PEG tube in the past. Current oral intake is diminished. Will consult general surgery again in consideration for another PEG tube insertion. Meanwhile, if it is reasonable to start the patient on TPN for nutritional support. Remains on Diflucan. Remains anticoagulation with Eliquis. Rest of the medications are essentially unchanged. The white cell count is 4.9 with a heme of 16. BUN is 51 with a creatinine of 0.6 and a sodium level is 133 and a potassium level is at 5.2. LFTs are mildly elevated. 06/13/2025, the patient is clinically unchanged. The patient has been weaned down to 7 L of oxygen by nasal cannula. Pulse ox ranging between 86% 92%. Denies having any worsening shortness of breath. Remains on IV Solu-Medrol. Oral intake remains quite diminished. General surgery consultation was obtained in consultation for PEG tube reinsertion. Meanwhile, dietary consult was also obtained to initiate TPN to supplement nutritional support. The patient is unable to meet her caloric requirements. The patient remains on Diflucan. The patient remains on bronchodilators and she is currently on DuoNeb treatments antibiotic and Symbicort. Rest of the medications are essentially unchanged. The white cell count is 4.7 with a hemoglobin of 15.5 with a platelet count of 100. BUN is 49 with a creatinine of 0.7. Sodium is at 135. No other significant events overnight. Family is considering the possibility of hospice at a later stage. Objective - Vital Signs Vital signs: Vital Signs Temp 97.4 F L 06/13/25 08:04 Pulse 76 06/13/25 08:47 Resp 17 06/13/25 08:04 BP 140/87 06/13/25 08:04 Pulse Ox 92 L 06/13/25 08:34 FiO2 Intake & Output 06/12/25 06/13/25 06/13/25 18:59 06:59 18:59 Intake Total 640 240 Output Total 150 Balance 640 -150 240 Weight 61.5 kg 73.5 kg Intake: Oral 640 240 Output: Urine 150 Other: Voiding Method External Catheter External Catheter External Catheter # Bowel Movements 1 - Exam The patient appeared well nourished and normally developed. Vital signs as documented. The patient is anxious. The patient is currently on 7 L of O2 nasal cannula. Head exam is unremarkable. No scleral icterus or corneal arcus noted. Neck is without jugular venous distension, thyromegaly, or carotid bruits. Carotid upstrokes are brisk bilaterally. The patient has extensive or opharyngeal candidiasis which is improving on today's examination. Lungs are clear to auscultation and percussion. Crackles are somewhat coarse in the midline lower lung pearl bilaterally. Cardiac exam reveals the PMI to be normally sized and situated. Rhythm is regular. First and second heart sounds normal. No murmurs, rubs or gallops. Abdominal exam reveals normal bowel sounds, no masses, no organomegaly and no aortic enlargement. Extremities are nonedematous and both femoral and pedal pulses are normal. Examination of the skin revealed no evidence of significant rashes, suspicious appearing nevi or other concerning lesions. Neurologically, the patient is awake and alert and the patient does not have any focal neurological deficit. Cranial nerves are essentially intact. - Labs CBC & Chem 7: 06/13/25 06:01 06/13/25 06:01 Labs: Abnormal Lab Results - Last 24 Hours (Table) 06/12/25 06/12/25 06/12/25 Range/Units 11:41 15:19 16:35 Hgb (12.0-15.0) g/dL MCV (80.0-97.0) fL MCH (27.0-32.0) pg Plt Count (140-440) 10*3/uL Immature Gran # (0.00-0.04) 10*3/uL Lymphocytes # (0.90-5.00) 10*3/uL Eosinophils # (0.04-0.35) 10*3/uL Sodium (137-145) mmol/L Chloride (98-107) mmol/L Carbon Dioxide (22-30) mmol/L BUN (7-17) mg/dL Glucose (74-99) mg/dL POC Glucose (mg/dL) 280 H 236 H (70-110) mg/dL Urine Appearance Cloudy H (Clear) Urine Blood Moderate H (Negative) Ur Leukocyte Esterase Large H (Negative) Urine WBC 11 H (0-5) /hpf Urine Bacteria Occasional H (None) /hpf Urine Mucus Rare H (None) /hpf 06/12/25 06/13/2506/13/25 Range/Units 20:02 06:01 06:01 Hgb 15.5 H (12.0-15.0) g/dL MCV 102.0 H (80.0-97.0) fL MCH 34.7 H (27.0-32.0) pg Plt Count 100 L (140-440) 10*3/uL Immature Gran # 0.07 H (0.00-0.04) 10*3/uL Lymphocytes # 0.24 L (0.90-5.00) 10*3/uL Eosinophils # 0.00 L (0.04-0.35) 10*3/uL Sodium 135 L (137-145) mmol/L Chloride 91 L (98-107) mmol/L Carbon Dioxide 36 H (22-30) mmol/L BUN 49 H (7-17) mg/dL Glucose 138 H (74-99) mg/dL POC Glucose (mg/dL) 197 H (70-110) mg/dL Urine Appearance (Clear) Urine Blood (Negative) Ur Leukocyte Esterase (Negative) Urine WBC (0-5) /hpf Urine Bacteria (None) /hpf Urine Mucus (None) /hpf 06/13/25 Range/Units 06:11 Hgb (12.0-15.0) g/dL MCV (80.0-97.0) fL MCH (27.0-32.0) pg Plt Count (140-440) 10*3/uL Immature Gran # (0.00-0.04) 10*3/uL Lymphocytes # (0.90-5.00) 10*3/uL Eosinophils # (0.04-0.35) 10*3/uL Sodium (137-145) mmol/L Chloride (98-107) mmol/L Carbon Dioxide (22-30) mmol/L BUN (7-17) mg/dL Glucose (74-99) mg/dL POC Glucose (mg/dL) 183 H (70-110) mg/dL Urine Appearance (Clear) Urine Blood (Negative) Ur Leukocyte Esterase (Negative) Urine WBC (0-5) /hpf Urine Bacteria (None) /hpf Urine Mucus (None) /hpf Assessment and Plan Plan: Acute hypoxic respiratory failure, currently requiring 7 L of high flow oxygen by nasal cannula. CT angiogram ruled out pulmonary embolism. There is interval development and significant enlargement of multiple soft tissue masses in the mid upper abdomen, retrocrural and periaortic region in addition to enlargement and new mediastinal and lower neck soft tissue masses. Diffuse parenchymal groundglass changes, in addition to a small left-sided pleural effusion that was not present on earlier CAT scan of the chest. Findings are still consistent with diffuse drug-induced pneumonitis probably related to Enhertu treatment but the patient received earlier for treatment of metastatic esophageal cancer. The patient remains on IV Solu-Medrol. Overall respiratory status is unchanged and the chest x-ray findings from 06/12/2025 remains unchanged and stable bilateral pulmonary infiltrates. 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 Suspect Enhertu related pneumonitis. There has been obvious decompensation of respiratory status with the tapering dose of prednisone. Acute on chronic shortness of breath secondary to above. Clinically stable Extensive oropharyngeal candidiasis, improving on IV Diflucan, improving Active heartburn, currently on IV Protonix and Maalox, improved Metastatic esophageal cancer with development of esophageal and mediastinal ly mphadenopathy. The patient was recently given a combination of Taxol and Cyramza on outpatient basis. Continues to have difficulty swallowing and diminished oral intake. Will need nutritional support. Will start TPN and will consult GI surgery consultation for PEG tube insertion. COPD. Elevated troponin, type II NSTEMI, more likely related to malignancy and demand supply mismatch History of ovarian cancer. Chronic anxiety. Chronic back pain. Hypertension. Hyperlipidemia. Former smoker. Plan: Continue monitoring the patient's oxygenation currently on 7 L of oxygen by nasal cannula, wean down FiO2 as tolerated to maintain saturation above 90% Continue IV Solu-Medrol 60 mg every 6 hours Provide incentive spirometer IV Protonix 40 mg every 12 hours Maalox 20 cc 4 times a day IV Diflucan 100 mg daily Physical therapy The oral intake remains quite diminished. Will obtain a dietary consultation for TPN and the patient has a Mediport. At the same time, we will obtain a general surgery consultation incarceration for a PEG tube insertion. This may be potentially technically difficult as the patient esophageal cancer and probably some significant narrowing in the esophagus which may complicate the procedure. General surgical consultation has been obtained. Meanwhile, dietary consultation was also obtained to consider TPN. Ultrasound of the chest was done and there is no sizable effusion on the left. Follow-up chest x-ray was noted NovoLog sliding scale as insulin coverage for blood sugar control Continue anticoagulation with Eliquis Case was discussed with medical oncology and with the family at the bedside. Family is considering hospice if there is no improvement
[2025-06-13 20:03] LABS: Glucose,Whole Blood 158 mg/dL (70-110)
[2025-06-13] MEDS: SALT AND SODA MOUTHWASH 1,000 ML PO SCH (20:32)
[2025-06-13] MEDS: PIPERACILLIN-TAZOBACTAM 3.375 GM in SODIUM CHLORIDE 0.9% 100 ML IVPB SCH (23:41)
[2025-06-14 06:00] LABS: Glucose,Whole Blood 149 mg/dL (70-110)
[2025-06-14] MEDS: ALPRAZolam 0.25 MG TAB PO PRN (07:06)
--- NOTE | 2025-06-14 08:46 | XR ---
EXAMINATION TYPE: XR chest 1V portable DATE OF EXAM: 06/14/2025 8:39 AM COMPARISON: Chest radiographs from 06/12/2025 TECHNIQUE: XR chest 1V portable Portable AP radiograph of the chest. CLINICAL INDICATION:Female, 69 years old with history of pulm edema; FINDINGS: Lungs/Pleura: No pleural effusion or pneumothorax. Diffuse coarsened interstitial opacities persist. Biapical pleural thickening. Left midlung calcified granuloma. Heart/mediastinum: Cardiomediastinal silhouette is enlarged and stable. Musculoskeletal: No acute osseous pathology. Other findings: None Lines/Tubes: Right IJ Mediport catheter distal tip terminating at the low SVC. IMPRESSION: Cardiomegaly with similar extensive ongoing diffuse interstitial coarsened opacities. [facility], , 06/14/2025 8:43 AM
[2025-06-14] MEDS: FUROSEMIDE 10 MG/ML 4 ML VIAL IV STA (09:08)
[2025-06-14 11:09] LABS: Glucose,Whole Blood 239 mg/dL (70-110)
--- NOTE | 2025-06-14 11:53 | P.PN ---
Subjective Progress Note Date: 06/14/25 Ms. Real is a 69-year-old female with multiple comorbidities including history of ovarian cancer status post resection and chemotherapy. In 02/16, she was diagnosed with distal esophageal cancer, metastatic, and was started on palliative chemotherapy with FOLFOX and Herceptin completing 9 cycles. Due to intolerance, her regimen was changed to Herceptin and 5FU infusion only. The patient was subsequently changed to Enhertu on progression. She was on the same till about 03/20, at which time she developed progressive shortness of breath. She had CT scans of the chest done in the [facility] system, most recently in 03/20, that were concerning for pneumonitis, showing bilateral infiltrative changes and groundglass opacities, more prominent in the lung apices. As this is a known side effect of her regimen, that was discontinued, and the patient was placed on steroids. She completed her steroid taper in late 04/19, with improvement in her respiratory complaints. The patient's subsequent imaging had shown evidence of progression, and the plan was to change her to Taxol and Cyramza, with cycle 1 being delayed r/t admission last month for SOB, felt to be r/t to pneumonitis r/t Enhertu. She was treated again with steroid taper. Pt states SOB was initially improving on higher dose steroids but SOB progressed as the taper decreased. She had cycle 1 of cyramza/taxol on 06/02. She states that since she has been experiencing shortness of breath and hypoxia that caused her to present to the emergency room for further evaluation. She was seen by her web editor, which there was possible concern for collapsed lung?. Upon admit repeat chest x-ray did not show any evidence of pneumothorax. CTA chest negative for pulmonary embolism. With interval development and enlargement of multiple soft tissue masses in the mid upper abdomen, retrocrural and periaortic region in addition to enlargement to new mediastinal and lower neck soft tissue masses. Of note does report that these masses were previously noted on CT chest from 05/01/2025 but are more conspicuous and have enlarged. Patient was also found to have mildly elevated serial troponins. BNP elevated at 7770. Elevated LFTs, bilirubin 1.2. WBC 8.9, hemoglobin 14.9, platelets 81,000. Creatinine 0.80, GFR 76. Pulmonology is following. Patient has been started on high-dose steroids, with Solu-Medrol 60 mg every 6 hours. Patient is also reporting since admit she has been experiencing episodes of tachycardia with associated chest pressure and dizziness. Cardiology has been consulted On 06/08/2025, the patient is being seen for a follow-up. The patient was hospitalized for worsening shortness of breath and hypoxemic respiratory failure. She is known to have metastatic esophageal cancer, details as discussed earlier and the patient is suspected to have acute pneumonitis related to Enhertu treatment. Based on that, the treatment was discontinued the patient was subjected to the higher dose prednisone. She was discharged home on 70 mg of prednisone and she was being gradually tapered down by 10 mg every week and she was down to 40 mg. By then, she had progressive worsening in oxygenation and shortness of breath and she was brought into the hospital for hypoxia as per the failure because she is on 10 L of oxygen by nasal cannula. Noted, the patient was given a combination of Taxol and Cyramza post her discharge. Oncology is on the case. The patient is calm and comfortable. This morning, she is on 8 L of oxygen by nasal cannula. I reviewed the CTA of the chest and it shows diffuse pneumonitis and there is also development of a small to moderate size left-sided pleural effusion. The patient is currently on IV Solu- Medrol. The BUN is 43 with a creatinine of 0.88 and a sodium levels at 138 and a potassium level of 3.9. She is currently on NovoLog sliding scale coverage for blood sugar control. She is also on anticoagulation with Eliquis. No altered mentation. Family at the bedside. Her cardiac rhythm is sinus with a left anterior fascicular block. On today's evaluation of 06/09/2025, the patient is being seen for a follow-up. Clinically stable and the patient has no interval worsening shortness of breath. She is currently on IV Solu-Medrol for drug-induced pneumonitis and the patient is currently on 7 L of O2 by nasal cannula. Her cardiac rhythm is sinus. She remains on IV Solu-Medrol 60 mg every 6 hours. She is also on anticoagulation with Eliquis 5 mg p.o. twice a day. She is on metoprolol 25 mg twice a day. Rest of her medications are essentially unchanged. The blood work shows a blood sugar of 200. BUN was 43 and a creatinine of 0.8 from yesterday. Awake and alert and communicating. No other significant events overnight. She will be provided incentive spirometer. Will also consult physical therapy. On today's evaluation of 06/10/2025, the patient is being seen for a follow-up. Overnight, the patient was having some increased shortness of breath and hypoxemia. Based on that, the patient was placed on oxygen at 10 L/min nasal cannula. Furthermore, the patient was having difficulties in swallowing. Her oral intake was quite diminished. On examination, the patient has extensive oropharyngeal candidiasis with tongue involvement. Based on the worsening in the oxygenation, chest x-ray was ordered and reviewed. Chest x-ray findings are essentially similar with mild to moderate cardiomegaly and diffuse interstitial and patchy opacities bilaterally. Findings are essentially unchanged. She continues to have reflux. She is on IV Protonix. Maalox will be also added. She is on Lasix 40 mg p.o. daily. She remains on anticoagulation with Eliquis 5 mg p.o. twice a day. On today's evaluation of 06/11/2025, the patient has been weaned down to 8 L of O2 nasal cannula. Overall respiratory status is unchanged the patient remains on IV Solu-Medrol. Chest x-ray from yesterday shows no major interval change with diffuse reticular changes bilaterally. The patient was also started on Diflucan for extensive oropharyngeal candidiasis. Symptoms have improved in the candidal throat infection seems to be subsiding. She is also on IV Protonix and Maalox for heartburn and the symptoms have also improved. She is afebrile. She is using incentive spirometer. White seconds at 4.9 with hemoglobin 16 and platelet count of 69. BUN is 31 with a creatinine of 0.6 and a sodium level of 133 and potassium is at 5.2. LFTs are mildly abnormal with a AST of 95, ALT of 110 and alkaline phosphatase of 215. Total protein is at 6 with a albumin level of 3.1. Procalcitonin level is at 0.16. She remains on Lasix. She remains on anticoagulation with Eliquis. On today's evaluation of 06/12/2025, the patient's overall respiratory status the patient remains on 8 L of oxygen by nasal cannula. The patient had a follow-up chest x-ray that shows essentially stable interstitial and alveolar infiltrates bilaterally which remains essentially unchanged and the patient remains on IV Solu-Medrol. Oropharyngeal candidiasis improved and the oral intake is quite diminished. Noted the patient has esophageal cancer and the patient was given a PEG tube in the past. Current oral intake is diminished. Will consult general surgery again in consideration for another PEG tube insertion. Meanwhile, if it is reasonable to start the patient on TPN for nutritional support. Remains on Diflucan. Remains anticoagulation with Eliquis. Rest of the medications are essentially unchanged. The white cell count is 4.9 with a heme of 16. BUN is 51 with a creatinine of 0.6 and a sodium level is 133 and a potassium level is at 5.2. LFTs are mildly elevated. 06/13/2025, the patient is clinically unchanged. The patient has been weaned down to 7 L of oxygen by nasal cannula. Pulse ox ranging between 86% 92%. Denies having any worsening shortness of breath. Remains on IV Solu-Medrol. Oral intake remains quite diminished. General surgery consultation was obtained in consultation for PEG tube reinsertion. Meanwhile, dietary consult was also obtained to initiate TPN to supplement nutritional support. The patient is unable to meet her caloric requirements. The patient remains on Diflucan. The patient remains on bronchodilators and she is currently on DuoNeb treatments antibiotic and Symbicort. Rest of the medications are essentially unchanged. The white cell count is 4.7 with a hemoglobin of 15.5 with a platelet count of 100. BUN is 49 with a creatinine of 0.7. Sodium is at 135. No other significant events overnight. Family is considering the possibility of hospice at a later stage. On today's evaluation of 06/14/2025, the patient is feeling essentially the same. However, there has been interval worsening oxygenation has required up to 10 L of oxygen by nasal cannula. And the patient oral intake remains quite dimini shed. Based on his changes in his oxygenation, a follow-up CAT scan of the chest was ordered. Patient was also given a dose of Lasix. There oropharyngeal candidiasis is improving. I reviewed the CAT scan of the chest. Obviously, there is emphysema and diffuse inflammatory changes bilaterally and there is development of a new onset right lower lobe consolidation involving the posterior segment in the superior segment of the right lower lobe. Left-sided pleural effusion remains unchanged. Based on this, the patient's was started on IV Zosyn. Remains on IV Solu-Medrol. Remains on Diflucan. No new labs are available from today. Objective - Vital Signs Vital signs: Vital Signs Temp 97.0 F L 06/14/25 07:52 Pulse 75 06/14/25 08:17 Resp 18 06/14/25 07:52 BP 117/83 06/14/25 07:52 Pulse Ox 92 L 06/14/25 08:17 FiO2 Intake & Output 06/13/25 06/14/25 06/14/25 18:59 06:59 18:59 Intake Total 480 0 Output Total 500 320 Balance -20 -320 0 Weight 73.5 kg Intake: Oral 480 0 Output: Urine 500 320 Other: Voiding Method External Catheter External Catheter - Exam The patient appeared well nourished and normally developed. Vital signs as documented. The patient is anxious. The patient is currently on 10 L of oxygen nasal cannula Head exam is unremarkable. No scleral icterus or corneal arcus noted. Neck is without jugular venous distension, thyromegaly, or carotid bruits. Carotid upstrokes are brisk bilaterally. The patient has extensive oropharyngeal candidiasis which is improving on today's examination. Lungs are clear to auscultation and percussion. Crackles are somewhat coarse in the midline lower lung pearl bilaterally. Cardiac exam reveals the PMI to be normally sized and situated. Rhythm is regular. First and second heart sounds normal. No murmurs, rubs or gallops. Abdominal exam reveals normal bowel sounds, no masses, no organomegaly and no aortic enlargement. Extremities are nonedematous and both femoral and pedal pulses are normal. Examination of the skin revealed no evidence of significant rashes, suspicious appearing nevi or other concerning lesions. Neurologically, the patient is awake and alert and the patient does not have any focal neurological deficit. Cranial nerves are essentially intact. - Labs CBC & Chem 7: 06/13/25 06:01 06/13/25 06:01 Labs: Abnormal Lab Results - Last 24 Hours (Table) 06/13/25 06/13/25 06/13/25 Range/Units 11:18 16:11 20:01 POC Glucose (mg/dL) 193 H 197 H 158 H (70-110) mg/dL 06/14/25 Range/Units 05:59 POC Glucose (mg/dL) 149 H (70-110) mg/dL Microbiology - Last 24 Hours (Table) 06/12/25 15:19 Urine Culture - Preliminary Urine,Voided Gram Neg Bacilli Assessment and Plan Plan: Acute hypoxic respiratory failure, currently requiring 10 L of high flow oxygen by nasal cannula. CT angiogram ruled out pulmonary embolism. There is interval development and significant enlargement of multiple soft tissue masses in the mid upper abdomen, retrocrural and periaortic region in addition to enlargement and new mediastinal and lower neck soft tissue masses. Diffuse parenchymal groundglass changes, in addition to a small left-sided pleural effusion that was not present on earlier CAT scan of the chest. Findings are still consistent with diffuse drug-induced pneumonitis probably related to Enhertu treatment but the patient received earlier for treatment of metastatic esophageal cancer. The patient remains on IV Solu-Medrol. Based on interval worsening in the oxygenation, and follow-up CAT scan of the chest was done this morning, noncontrast images reveal a new right lower lobe consolidation consistent with pneumonia, could be hospital-acquired and the patient also has a stable left- sided pleural effusion. 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 Suspect Enhertu related pneumonitis. There has been obvious decompensation of respiratory status with the tapering dose of prednisone. Acute on chronic shortness of breath secondary to above. Clinically stable Extensive oropharyngeal candidiasis, improving on IV Diflucan, improving Active heartburn, currently on IV Protonix and Maalox, improved Metastatic esophageal cancer with development of esophageal and mediastinal lymphadenopathy. The patient was recently given a combination of Taxol and Cyramza on outpatient basis. Continues to have difficulty swallowing and di minished oral intake. Will need nutritional support. Will start TPN and will consult GI surgery consultation for PEG tube insertion. COPD. Elevated troponin, type II NSTEMI, more likely related to malignancy and demand supply mismatch History of ovarian cancer. Chronic anxiety. Chronic back pain. Hypertension. Hyperlipidemia. Former smoker. Plan: Continue monitoring the patient's oxygenation currently on 10 L of oxygen by nasal cannula Add IV Zosyn Continue IV Solu-Medrol 60 mg every 6 hours Provide incentive spirometer IV Protonix 40 mg every 12 hours Maalox 20 cc 4 times a day IV Diflucan 100 mg daily, oropharyngeal candidiasis improved Physical therapy The oral intake remains quite diminished. Will obtain a dietary consultation for TPN and the patient has a Mediport. At the same time, we will obtain a general surgery consultation incarceration for a PEG tube insertion. This may be potentially technically difficult as the patient esophageal cancer and probably some significant narrowing in the esophagus which may complicate the procedure. General surgical consultation has been obtained. Meanwhile, dietary consultation was also obtained to consider TPN. Ultrasound of the chest was done and there is no sizable effusion on the left. Follow-up chest x-ray was noted NovoLog sliding scale as insulin coverage for blood sugar control Continue anticoagulation with Eliquis Case was discussed with medical oncology and with the family at the bedside. Family is considering hospice if there is no improvement Time with Patient: Greater than 30
[2025-06-14] MEDS: MAG HYDROX/AL HYDROX/SIMETH 30 ML, diphenhydrAMINE ELIXIR 75 MG, LIDOCAINE VISCOUS 2% 3... PO PRN (12:04)
--- NOTE | 2025-06-14 12:15 | CT ---
EXAMINATION TYPE: CT chest wo con CT DLP: 253.9 mGycm, Automated exposure control for dose reduction was used. DATE OF EXAM: 06/14/2025 10:48 AM COMPARISON: Chest radiograph 06/14/2025, CTA chest 06/05/2025 CLINICAL INDICATION:Female, 69 years old with history of acute hypoxic resp failure; PHH, Acute hypox ic resp failure. TECHNIQUE: Multiple axial images were obtained through the chest without IV contrast. Lack of IV or o ral contrast limits evaluation of solid and hollow organ viscera. . Coronal and sagittal reformats re viewed. FINDINGS: LUNGS/ PLEURA: No pneumothorax. No right pleural effusion. Similar small to moderate size left pleur al effusion. Left lower lobe callus or granuloma. Scattered pulmonary cystic change with diffuse grou ndglass opacities and reticulations. Development of right lower lobe patchy consolidative opacities w ith air bronchograms. Elevation of the right hemidiaphragm. AIRWAY: Patent and unremarkable.. HEART: Cardiomegaly is demonstrated.No significant pericardial effusion. Mild coronary artery calcifi cations present. MEDIASTINUM: Enlarged subcarinal lymph node/mass measuring approximately 4.0 cm. Multiple enlarged pa raesophageal enlarged soft tissue lymph nodes/masses with largest measuring up to 4.9 cm (series 201, image 79). Prominent mediastinal lymph nodes with calcifications. Left hilar calcified lymph nodes. VASCULATURE: No aortic aneurysm. Right IJ approach anterior chest Mediport catheter distal tip termi nating in the mid SVC. Dilated main pulmonary artery measuring 3.7 cm in diameter. Suggests pulmonary arterial hypertension. MUSCULOSKELETAL: No acute osseous abnormalities. SOFT TISSUES/LYMPH NODES: Enlarged left supraclavicular lymph nodes measuring up to 3.5 cm. LOWER NECK: No significant findings. UPPER ABDOMEN: Calcified granulomas within the spleen. The gallbladder is surgically absent. Multiple enlarged retroperitoneal lymph nodes with largest in the left periaortic region measuring up to 3.1 cm. Additional involvement of the aortocaval region IMPRESSION: 1. Development of right lower lobe pneumonia. 2. Redemonstration of multiple enlarged lymph nodes/soft tissue masses in the mediastinum, supraclav icular region, paraesophageal region, and retroperitoneum. Findings are again concerning for lymphoma and/or metastatic disease. Further work up is again recommended. 3. Similar diffuse nonspecific interstitial lung disease. 4. Small to moderate size similar left pleural effusion. 5. Sequelae of prior granulomatous disease. [facility], , 06/14/2025 12:12 PM
--- NOTE | 2025-06-14 12:27 | P.PN ---
Subjective Progress Note Date: 06/14/25 Principal diagnosis: esogheal cancer, dyspnea, related to chemo therapy pt is awake alert vss afebrile patient having difficulty breathing steroid IV increased her pulmonary medicine oxygen requirements adjusted according to patient's needs, currently high flow at 8 L to maintain sats above 90 Objective - Vital Signs Vital signs: Vital Signs Temp 97.0 F L 06/14/25 07:52 Pulse 81 06/14/25 12:10 Resp 20 06/14/25 12:10 BP 124/85 06/14/25 12:10 Pulse Ox 88 L 06/14/25 12:10 FiO2 Intake & Output 06/13/25 06/14/25 06/14/25 18:59 06:59 18:59 Intake Total 480 0 Output Total 500 320 Balance -20 -320 0 Weight 73.5 kg Intake: Oral 480 0 Output: Urine 500 320 Other: Voiding Method External Catheter External Catheter External Catheter - Exam General: [Patient awake, alert and oriented times 3. Patient in no acute distress.] HEENT: [PERRL. EOMI. No pharyngeal erythema or exudate.] Neck: [No adenopathy.] Cardiac: [Heart regular in rate and rhythm. No S3. No S4. No clicks, rubs. No murmur.] Lungs: Diminished breath sounds bilaterally with intermittent bibasilar wheezes Abdomen: [No mass. No organomegaly. Bowel sounds presnt and normoactive in all 4 quadrants.] Extremes: [No edema no cyanosis no claudication normal pulses] : normal physical exam Musculoskeletal: [No joint erythema, edema or tenderness.] Skin: [No rash.] Neurologic: [No lateralizing deficits. CN II - XII grossly intact.] Lymphatic: [No adenopathy.] - Labs CBC & Chem 7: 06/13/25 06:01 06/13/25 06:01 Labs: Abnormal Lab Results - Last 24 Hours (Table) 06/13/25 06/13/25 06/14/25 Range/Units 16:11 20:01 05:59 POC Glucose (mg/dL) 197 H 158 H 149 H (70-110) mg/dL 06/14/25 Range/Units 11:07 POC Glucose (mg/dL) 239 H (70-110) mg/dL Microbiology - Last 24 Hours (Table) 06/12/25 15:19 Urine Culture - Preliminary Urine,Voided Gram Neg Bacilli Assessment and Plan (1) Elevated troponin Current Visit: Yes Status: Acute Code(s): R77.8 - OTHER SPECIFIED ABNORMALITIES OF PLASMA PROTEINS SNOMED Code(s): 511269668 (2) Hypoxia Current Visit: Yes Status: Acute Priority: High Code(s): R09.02 - HYPOXEMIA SNOMED Code(s): 860819195 (3) Pleural effusion Current Visit: Yes Status: Acute Code(s): J90 - PLEURAL EFFUSION, NOT ELSEWHERE CLASSIFIED SNOMED Code(s): 47395283 (4) Pulmonary fibrosis Current Visit: Yes Status: Acute Code(s): J84.10 - PULMONARY FIBROSIS, UNSPECIFIED SNOMED Code(s): 15694743 (5) Esophageal adenocarcinoma Current Visit: Yes Status: Chronic Priority: Medium Code(s): C15.9 - MALIGNANT NEOPLASM OF ESOPHAGUS, UNSPECIFIED SNOMED Code(s): 487245539 Plan: Patient reluctant at this time to change to no code\comfort care status, wishes to assess oxygen requirements over the next couple of days to she is going to improve before she makes this decision Current diagnosis esophageal carcinoma, resuming chemotherapy This is this patient's third primary carcinoma Will continue to follow Time with Patient: Greater than 30
[2025-06-14] MEDS: PIPERACILLIN-TAZOBACTAM 3.375 GM in SODIUM CHLORIDE 0.9% 100 ML IVPB SCH (12:28)
--- NOTE | 2025-06-14 14:02 | P.PN ---
Subjective Progress Note Date: 06/14/25 Principal diagnosis: Metastatic esophageal adenocarcinoma - No acute events, afebrile overnight - Noted to have progressive hypoxia this morning requiring up to 15 L high flow nasal cannula and has since been transition to Airvo - CT of the chest notes persistent groundglass opacities bilaterally as well as consolidation in the right lower lobe concerning for pneumonia - Clinically, she denies any subjective dyspnea and is eager to eat soup brought in by her daughter Objective - Vital Signs Vital signs: Vital Signs Temp 97.0 F L 06/14/25 07:52 Pulse 81 06/14/25 12:10 Resp 20 06/14/25 12:10 BP 124/85 06/14/25 12:10 Pulse Ox 95 06/14/25 13:11 FiO2 80 06/14/25 12:25 Intake & Output 06/13/25 06/14/25 06/14/25 18:59 06:59 18:59 Intake Total 480 0 Output Total 500 320 Balance -20 -320 0 Weight 73.5 kg Intake: Oral 480 0 Output: Urine 500 320 Other: Voiding Method External Catheter External Catheter External Catheter - Constitutional General appearance: Present: cooperative, no acute distress - EENT EENT Comment(s): Mucositis noted on the left tongue with significant improvement in thrush of the posterior tongue and hard palate - Respiratory Details: Nonlabored breathing - Cardiovascular Details: Warm and well-perfused - Gastrointestinal General gastrointestinal: Present: soft. Absent: distended - Integumentary Integumentary: Present: pale - Neurologic Neurologic: Present: CNII-XII intact. Absent: focal deficits - Labs CBC & Chem 7: 06/13/25 06:01 06/13/25 06:01 Labs: Abnormal Lab Results - Last 24 Hours (Table) 06/13/25 06/13/25 06/14/25 Range/Units 16:11 20:01 05:59 POC Glucose (mg/dL) 197 H 158 H 149 H (70-110) mg/dL 06/14/25 Range/Units 11:07 POC Glucose (mg/dL) 239 H (70-110) mg/dL Microbiology - Last 24 Hours (Table) 06/12/25 15:19 Urine Culture - Preliminary Urine,Voided Gram Neg Bacilli - Imaging and Cardiology CT scan - chest: image reviewed Assessment and Plan (1) Primary adenocarcinoma of esophagus with metastasis Current Visit: Yes Status: Acute Code(s): C15.9 - MALIGNANT NEOPLASM OF ESOPHAGUS, UNSPECIFIED SNOMED Code(s): 888574755 (2) Pneumonitis Current Visit: Yes Status: Acute Code(s): J98.4 - OTHER DISORDERS OF LUNG SNOMED Code(s): 629834943 (3) Carla esophagitis Current Visit: Yes Status: Acute Code(s): B37.81 - CANDIDAL ESOPHAGITIS SNOMED Code(s): 80051138 Plan: #Drug-induced pneumonitis secondary to Enhertu with possible superimposed aspiration pneumonia -CTA negative for PE. With interval development and enlargement of multiple soft tissue masses in the mid upper abdomen, retrocrural and periaortic region in addition to enlargement to new mediastinal and lower neck soft tissue masses. Pt just started on new treatment regimen. -Pulmonology following. Discussed with Pulm. Patient has been started on high- dose steroids, with Solu-Medrol 60 mg every 6 hours -Oxygen requirements have increased this morning and is now currently on Airvo from high flow nasal cannula -CT chest appears to show new consolidation in the right lower lobe in addition to persistent groundglass opacities secondary to pneumonitis from Enhertu -For now, continue Solu-Medrol, antibiotics. Continue Ativan as needed -We did discuss that if she required intubation, she likely would not be able to be extubated given her persistent underlying pneumonitis -Following discussing, she was agreeable to have a CODE STATUS of DNR/DNI #Carla esophagitis -Continue Diflucan and Kools solution q4h PRN and salt and soda mouthwash 3 times daily -Area of mucositis noted on the left tongue with significant improvement in t hrush of the tongue and hard palate -Defer PEG tube for now #Metatstatic esophageal adenocarcinoma -Diagnostic and therapeutic circumstances as described in consult. -Patient completed cycle 1 of taxol/cyramza on 06/02. Noted progression on CTA chest, not consistent with tx failure. She has been off treatment and just restarted new treatment regimen on 06/02 -SOB symptoms persisting prior to treatment. Tx on hold until acute condition resolved -Extensive goals of care discussion took place on 06/12/2025. Joslyn and her family would like to see how her respiratory status is over the next few days prior to making final decision on hospice -DNR/DNI as noted above Lester Castillo MD
[2025-06-14] MEDS ORDERED: PIPERACILLIN-TAZOBACTAM 3.375 GM in SODIUM CHLORIDE 0.9% 100 ML IVPB SCH (16:00)
[2025-06-14] MEDS ORDERED: ZINC OXIDE PASTE (Z-GUARD) 1 APPLIC TOPICAL PRN (16:15)
[2025-06-14 16:18] LABS: Glucose,Whole Blood 165 mg/dL (70-110)
--- NOTE | 2025-06-14 18:48 | P.CONS ---
History of Present Illness - Reason for Consult Consult date: 06/14/25 Urosepsis Requesting physician: Caleb Fisher Jr - Chief Complaint Weakness and shortness of breath x days - History of Present Illness Patient is a 69-year-old female with a past medical history significant for Cancer, COPD, GERD/Reflux, Hyperlipidemia, Hypertension, Osteoarthritis (OA), Pneumonia, Thyroid Disorder presented to hospital 9 days ago for evaluation of shortness of breath patient subsequently has been admitted to hospital and has been evaluated by oncology pulmonary and admitting services patient apparently did have decreased oral intake and noticed to have more concentrated dark urine patient did not have any Hernandez catheter during this adm ission and some lower abdominal discomfort patient did not have any fever during this hospital stay patient did have a ongoing elevated white count 11.43 on 06/07/2025 however the white count has been normal BUN is mildly elevated creatinine is normal patient did have a UA obtained 2 days ago PT shows large leukocyte Estrace 11 WBC culture currently growing gram-negative infectious was consulted concerning for urosepsis patient complaining mostly of feeling weak and tired no energy did have decreased oral intake no chest pain or worsening cough no diarrhea Review of Systems Positive point and negatives has been mentioned in the HPI, complete review of systems was performed and all other systems are negative Past Medical History Past Medical History: Cancer, COPD, GERD/Reflux, Hyperlipidemia, Hypertension, Osteoarthritis (OA), Pneumonia, Thyroid Disorder Additional Past Medical History / Comment(s): OVARIAN CANCER (DX 02/2015) LAST CHEMO May 2025, IBS,CHRONIC BACK PAIN, HX OF BRONCHITIS. cancer reoccurence - mass in esophagus and liver History of Any Multi-Drug Resistant Organisms: None Reported Past Surgical History: Cholecystectomy, Hysterectomy, Orthopedic Surgery, Tubal Ligation Additional Past Surgical History / Comment(s): PORT-A-CATH RT CHEST(04/2015),and removal of port, COLONOSCOPY,. EXCISION LIPOMA FROM ABD. WALL. Total Hysterectomy. LT FEMUR x2. knee replacement 03/2021 Past Anesthesia/Blood Transfusion Reactions: No Reported Reaction Additional Past Anesthesia/Blood Transfusion Reaction / Comm: NO COMPLICATIONS WITH BLOOD TRANSFUSION. Past Psychological History: Anxiety Smoking Status: Former smoker Past Alcohol Use History: None Reported Additional Past Alcohol Use History / Comment(s): QUIT SMOKING 2004,STARTED 1984. SMOKED LESS THAN 1 PPD. DRINKS 3 PER WEEK, NO ALCOHOL IN THE LAST COUPLE WEEKS. Past Drug Use History: None Reported - Past Family History Mother Family Medical History: Cancer Additional Family Medical History / Comment(s): SQUAMOUS CELL CA-NECK. Father History Unknown: Yes Medications and Allergies Home Medications Medication Instructions Recorded Confirmed Type Levothyroxine Sodium [Synthroid] 88 mcg PO DAILY@0600 06/30/15 06/05/25 History Omeprazole 20 mg PO DAILY 06/30/15 06/05/25 History ALPRAZolam [Xanax] 0.25 mg PO BID PRN 07/31/17 06/05/25 History Pravastatin Sodium 80 mg PO HS 08/03/20 06/05/25 History Mirtazapine [Remeron] 15 mg PO HS 06/26/24 06/05/25 History Fluticasone Propion/Salmeterol 1 puff INHALATION RT-BID 05/01/25 06/05/25 History [Advair 250-50 Diskus] Magnesium Oxide [Mag-Ox] 400 mg PO DAILY 05/01/25 06/05/25 History Potassium Chloride ER [K-Dur 20] 20 meq PO DAILY 05/01/25 06/05/25 History Apixaban [Eliquis] 5 mg PO BID #60 tab 05/08/25 06/05/25 Rx Albuterol Nebulized [Ventolin 2.5 mg INHALATION RT-DAILY 06/05/25 06/05/25 History Nebulized] Albuterol Nebulized [Ventolin 2.5 mg INHALATION RT-TID PRN 06/05/25 06/05/25 History Nebulized] Furosemide [Lasix] 20 mg PO DAILY 06/05/25 06/05/25 History HYDROcodone/APAP 10-325MG [[place] 1 tab PO Q4H PRN 06/05/25 06/05/25 History 10-325] Metoprolol Tartrate [Lopressor] 12.5 mg PO BID 06/05/25 06/05/25 History predniSONE 60 mg PO DAILY 06/05/25 06/05/25 History Allergies Allergy/AdvReac Type Severity Reaction Status Date / Time amoxicillin Allergy Rash/Hives Verified 06/05/25 17:49 Physical Exam Vitals: Vital Signs Temp Pulse Pulse Resp BP Pulse Ox 06/14/25 08:27 78 06/14/25 08:17 75 92 L 06/14/25 07:52 97.0 F L 71 18 117/83 92 L 06/14/25 07:35 94 L 06/14/25 07:07 20 91 L 06/14/25 06:55 19 84 L 06/14/25 04:00 97.8 F 64 18 136/88 94 L 06/13/25 23:28 97.6 F 60 20 134/87 97 06/13/25 20:10 76 06/13/25 20:00 97.6 F 79 20 130/86 92 L 06/13/25 19:58 76 06/13/25 16:43 81 19 120/86 86 L 06/13/25 12:09 75 06/13/25 11:55 74 06/13/25 11:03 69 17 113/77 92 L Intake and Output 06/13/25 06/14/25 06/14/25 22:59 06:59 14:59 Intake Total 0 0 Output Total 500 320 Balance -500 -320 0 Intake: Oral 0 0 Output: Urine 500 320 Other: Voiding Method External Catheter External Catheter Weight 73.5 kg GENERAL DESCRIPTION: Elderly female lying in bed, no distress. No tachypnea or accessory muscle of respiration use. HEENT: Shows Pallor , no scleral icterus. Oral mucous membrane is dry. NECK: Trachea central, no thyromegaly. LUNGS: Unlabored breathing. Decreased breath sound in the base HEART: S1, S2, regular rate and rhythm. No loud murmur ABDOMEN: Soft, mild suprapubic tenderness EXTREMITIES: No edema of feet. SKIN: No rash, no masses palpable. NEUROLOGICAL: The patient is awake, alert, oriented x3, mood and affect normal. Results CBC & Chem 7: 06/13/25 06:01 06/13/25 06:01 Labs: Abnormal Lab Results - Last 24 Hours (Table) 06/13/25 06/13/25 06/13/25 Range/Units 11:18 16:11 20:01 POC Glucose (mg/dL) 193 H 197 H 158 H (70-110) mg/dL 06/14/25 Range/Units 05:59 POC Glucose (mg/dL) 149 H (70-110) mg/dL Microbiology - Last 24 Hours (Table) 06/12/25 15:19 Urine Culture - Preliminary Urine,Voided Gram Neg Bacilli Assessment and Plan (1) Allergy to amoxicillin Current Visit: Yes Status: Acute Code(s): Z88.0 - ALLERGY STATUS TO PENICILLIN SNOMED Code(s): 164710112 (2) Urinary tract infection Current Visit: No Status: Acute Code(s): N39.0 - URINARY TRACT INFECTION, SITE NOT SPECIFIED SNOMED Code(s): 51049522 Plan: 1patient presented to hospital 9 days before initial consultation mostly for increasing shortness of breath also noticed to have decreased appetite significantly concentrated urine positive UA concerning for symptomatic UTI patient did have mild suprapubic tenderness but no other urinary symptoms 2-patient with normal mental and amoxicillin allergy however tolerated Zosyn without any problem clinically doubt true penicillin allergy can be taken of the chart 3-urine is currently growing gram-negative rods sensitivities are available and the pathogen is sensitive, patient will be switched over to Rocephin and transition to oral biotic on discharge Family bedside question answered We will follow on clinical condition and cultures to further adjust medication if needed Thank you for this consultation we will follow the patient along with you Dictation was produced using [employer] dictation software. please excuse any grammatical, word or spelling errors. Time with Patient: Greater than 30
[2025-06-14 20:05] LABS: Glucose,Whole Blood 167 mg/dL (70-110)
[2025-06-15 05:54] LABS: Glucose,Whole Blood 149 mg/dL (70-110)
[2025-06-15 08:06] LABS: Basophils # (A) 0.05 10*3/uL (0.00-0.10); Basophils % (A) 0.6 %; Eosinophils # (A) 0.00 10*3/uL (0.04-0.35); Eosinophils % (A) 0.0 %; HCT 46.2 % (37.2-46.3); HGB 16.3 g/dL (12.0-15.0); Lymphocytes # (A) 0.51 10*3/uL (0.90-5.00); Lymphocytes % (A) 6.0 %; MCH 35.2 pg (27.0-32.0); MCHC 35.3 g/dL (32.0-37.0); MCV 99.8 fL (80.0-97.0); Monocytes # (A) 0.78 10*3/uL (0.20-1.00); Monocytes % (A) 9.2 %; Neutrophils # (A) 6.70 10*3/uL (1.80-7.70); Neutrophils % (A) 79.5 %; Platelet Count 119 10*3/uL (140-440); RBC 4.63 10*6/uL (4.10-5.20); RDW 12.2 % (11.5-14.5); WBC 8.44 10*3/uL (4.50-10.00)
[2025-06-15 08:17] LABS: African American GFR (CKD) 75 (>60 ml/min/1.73 sqM); Anion Gap 7 mmol/L; Blood Urea Nitrogen 50 mg/dL (7-17); Calcium 10.3 mg/dL (8.4-10.2); Carbon Dioxide 37 mmol/L (22-30); Chloride 91 mmol/L (98-107); Glucose 148 mg/dL (74-99); Non-African American GFR(CKD) 65 (>60 ml/min/1.73 sqM); Potassium 4.7 mmol/L (3.5-5.1); Sodium 135 mmol/L (137-145)
--- NOTE | 2025-06-15 11:16 | P.PN ---
Subjective Progress Note Date: 06/15/25 06/08/2025 this is a pleasant 69-year-old female recently hospitalized and treated for hypoxemia, suspected drug-induced Enhertu pneumonitis, discharged on 05/10/2025. Received immunotherapy June 02, 2025, returned back to the hospital with increasing hypoxemia-worsened with exertion, cough, congestion. CTA ruled out PE, reported interval development and significant enlargement of multiple soft tissue masses in the mid upper abdomen, retrocrural and periaortic region in addition to enlargement and new mediastinal and lower neck soft tissue masses. Diffuse parenchymal groundglass changes superimposed on of somatic lungs may represent pulmonary edema versus fibrotic lung disease. Small left and trace right pleural effusions. Chest x-ray reported diffuse interstitial prominence suspicious for interstitial lung disease versus atypical pneumonia. Procalcitonin within normal limits. BNP 7770. maintained on nebulized bronchodilators, IV steroids and Symbicort. diuretics transitioned to oral. ox ygen titrated down to 8 L high flow nasal cannula. Afebrile. Chest ultrasound pending. 06/09/2025 chest ultrasound completed yesterday reporting right and left side not marked for possible thoracentesis-left pleural effusion pocket size 2.8 cm. Maintained on Symbicort, IV steroids, nebulized bronchodilators and oral diuretic. oxygen titrated down to 7 L, maintaining O2 sats in the low 90s. Blo od sugars controlled .telemetry sinus rhythm. Complaining of heartburn, occasional palpitations. Metoprolol increased. EKG pending. 06/10/2025 Complains of heartburn, significant gastroesophageal reflux disease accompanied by extensive oral thrush. Oral intake poor. no additional cardiac workup recommended at this time, cardiology has signed off today. Patient had a rough night with increased shortness of breath, requiring up to 12 L high flow nasal cannula. Oxygen currently weaned down to 10 L high flow. Chest x-ray ordered. 06/11/2025 maintained on nebulized bronchodilators, IV steroids, Symbicort .reports she slept better throughout the night without increase in shortness of breath. Maintaining O2 sats in the mid 90s on 8 L high flow nasal cannula. Yesterday PPI increased to twice daily, reports improvement in heartburn. Continues on Mycelex troches, fluconazole IVPB, cool's solution with improvement in oral thrush. Increase diet intake today compared to yesterday with 25% of breakfast consumed. Currently sipping on iced coffee drink. 24-hour I&O reflecting a 24-hour urine output of 775. Labs pending. 06/12/2025 maintaining O2 sats in the low 90s on 8 L nasal cannula. Positive bowel movement.Oralpharyngeal candidiasis significantly improved, yet diet intake remains poor. Family at bedside reports patient did not eat hardly anything yesterday nor this am. 06/13/2025 pt is awake alert vss afebrile patient having difficulty breathing steroid IV increased her pulmonary medicine oxygen requirements adjusted according to patient's needs, currently high flow at 8 L to maintain sats above 90 06/14/2025 pt is awake alert vss afebrile patient having difficulty breathing steroid IV increased her pulmonary medicine oxygen requirements adjusted according to patient's needs, currently high flow at 8 L to maintain sats above 90. 06/15/2025 evaluated by infectious disease with antibiotics adjusted .currently maintained on Ceftriaxone. Continues on fluconazole. Requiring Airvo recently titrated to 75% FiO2, on nebulized bronchodilators, IV steroids around -the-clock, Symbicort. Oropharyngeal candidiasis improving. Significantly diminished oral intake. TPN being considered. Evaluated by general surgery for potential PEG tube. Oncology recommending deferring PEG for now. Objective - Vital Signs Vital signs: Vital Signs Temp 97.8 F 06/15/25 04:00 Pulse 68 06/15/25 08:12 Resp 20 06/15/25 07:43 BP 138/87 06/15/25 07:43 Pulse Ox 94 L 06/15/25 07:59 FiO2 80 06/15/25 07:59 Intake & Output 06/14/25 06/15/25 06/15/25 18:59 06:59 18:59 Intake Total 225 Output Total 1036 200 Balance -811 -200 Weight 73.5 kg Intake: Oral 225 Output: Urine 800 200 Post Void Residual 236 Other: Voiding Method External Catheter External Catheter External Catheter - Exam GENERAL: Fatigued, pleasant,sitting up in bed,Alert and oriented x 2, NAD, HEAD: Atraumatic, normocephalic. MMM with Oral thrush significantly improved. NECK: Supple, no JVD LUNGS: Equal air entry, coarse scattered crackles, bilateral bases diminished HEART: S1 S2. Regular rate and rhythm. ABDOMEN: Soft, nondistended, nontender,no guarding. Positive bowel sounds EXTREMITIES:no edema. No clubbing or cyanosis. Peripheral pulses intact. NEUROLOGICAL: Cranial nerves II through XII grossly intact. No focal deficits. SKIN: Warm, Dry, no rashes noted. - Labs CBC & Chem 7: 06/15/25 07:52 06/15/25 07:52 Labs: Abnormal Lab Results - Last 24 Hours (Table) 06/14/25 06/14/25 06/14/25 Range/Units 11:07 16:16 20:04 Hgb (12.0-15.0) g/dL MCV (80.0-97.0) fL MCH (27.0-32.0) pg Plt Count (140-440) 10*3/uL Immature Gran # (0.00-0.04) 10*3/uL Lymphocytes # (0.90-5.00) 10*3/uL Eosinophils # (0.04-0.35) 10*3/uL Sodium (137-145) mmol/L Chloride (98-107) mmol/L Carbon Dioxide (22-30) mmol/L BUN (7-17) mg/dL Glucose (74-99) mg/dL POC Glucose (mg/dL) 239 H 165 H 167 H (70-110) mg/dL Calcium (8.4-10.2) mg/dL 06/15/25 06/15/25 06/15/25 Range/Units 05:53 07:52 07:52 Hgb 16.3 H (12.0-15.0) g/dL MCV 99.8 H (80.0-97.0) fL MCH 35.2 H (27.0-32.0) pg Plt Count 119 L (140-440) 10*3/uL Immature Gran # 0.40 H (0.00-0.04) 10*3/uL Lymphocytes # 0.51 L (0.90-5.00) 10*3/uL Eosinophils # 0.00 L (0.04-0.35) 10*3/uL Sodium 135 L (137-145) mmol/L Chloride 91 L (98-107) mmol/L Carbon Dioxide 37 H (22-30) mmol/L BUN 50 H (7-17) mg/dL Glucose 148 H (74-99) mg/dL POC Glucose (mg/dL) 149 H (70-110) mg/dL Calcium 10.3 H (8.4-10.2) mg/dL Microbiology - Last 24 Hours (Table) 06/12/25 15:19 Urine Culture - Final Urine,Voided Escherichia coli Assessment and Plan Assessment: Acute hypoxic respiratory failure. CTA ruled out PE, reported interval development and significant enlargement of multiple soft tissue masses in the mid upper abdomen, retrocrural and periaortic region in addition to enlargement and new mediastinal and lower neck soft tissue masses. Diffuse parenchymal groundglass changes superimposed on of somatic lungs may represent pulmonary edema versus fibrotic lung disease. Small left and trace right pleural effusions. Procalcitonin within normal limits.per pulmonary's review of imaging, still consistent with diffuse drug-induced pneumonitis probably related to previous Enhertu treatment. Gastroesophageal reflux disease Oral Candidiasis, extensive Recent immunotherapy on 06/02/2025 Recently treated inpatient for hypoxemia and suspected [id number] ,pneumonitis, discharged on 05/10/25. Paroxysmal atrial tachycardia, SVT Chronic paroxysmal atrial fibrillation Metastatic esophageal cancer, Enhertu chemo recently discontinued. New treatment restarted on 06/02/2025 Posterior retrocrural and lower paraesophageal masses, some enlarged lymphadenopathy within the mediastinum reported per CTA on prior visit 05/20 Chronic CHF exacerbation, diastolic dysfunction, EF 55 to 60%, ruled out as per cardiology and pulmonary. COPD History of ovarian cancer status post resection and chemotherapy Former nicotine dependence Hypothyroidism Hypertension .....and multiple other medical issues. UTI with E. coli Severe protein calorie malnutrition, BMI 24, albumin 3.1, total protein 6 No code Plan: Continue on current medication regimen ,monitoring and symptomatic treatment. Prognosis guarded given multiple complex medical issues. Aggressive pulmonary toileting, nebulized bronchodilators, steroids, Symbicort, diuretics, antibiotics, IV fluconazole. CODE STATUS changed to no code over the weekend. Hospice discussed over the weekend; family was not ready for informational hospice meeting. The impression and plan of care has been dictated as directed. : I performed a history and examination of this patient, discussed the same with the dictator. I agree with the dictator's note ,documented as a scribe. Any additional findings or plans will be noted.
[2025-06-15 11:35] LABS: Glucose,Whole Blood 196 mg/dL (70-110)
[2025-06-15 12:59] VITALS: BMI 28.7
--- NOTE | 2025-06-15 14:40 | P.PN ---
Subjective Progress Note Date: 06/15/25 Reporting improvement in breathing today. Currently on airvo, SPO2 high 90s. Continues high dose steroids and bronchodilators. IV abx started for suspected pneumonia. Objective - Vital Signs Vital signs: Vital Signs Temp 97.3 F L 06/15/25 13:33 Pulse 66 06/15/25 13:26 Resp 16 06/15/25 13:26 BP 122/80 06/15/25 13:26 Pulse Ox 97 06/15/25 13:26 FiO2 75 06/15/25 11:41 Intake & Output 06/14/25 06/15/25 06/15/25 18:59 06:59 18:59 Intake Total 225 100 Output Total 1036 200 Balance -811 -200 100 Weight 73.5 kg 73.5 kg Intake: Intake, IV Titration 100 Amount Fluconazole in NaCl,Iso- 50 Osm 100 mg In Saline 1 50ml.bag @ 50 mls/hr IVPB DAILY JOHN Rx#:[id number] cefTRIAXone 2 gm In 50 Sodium Chloride 0.9% 50 ml @ 100 mls/hr IVPB Q24HR JOHN Rx#:[id number] Oral 225 Output: Urine 800 200 Post Void Residual 236 Other: Voiding Method External Catheter External Catheter External Catheter - Constitutional General appearance: Present: no acute distress - EENT Eyes: Present: anicteric sclerae, EOMI ENT: Present: hearing grossly normal - Respiratory Details: breathing is labored - Cardiovascular Details: skin warm and dry - Gastrointestinal General gastrointestinal: Present: soft. Absent: tenderness - Musculoskeletal Musculoskeletal: Present: generalized weakness - Psychiatric Psychiatric: Present: A&O x's 3 - Labs CBC & Chem 7: 06/15/25 07:52 06/15/25 07:52 Labs: Abnormal Lab Results - Last 24 Hours (Table) 06/14/25 06/14/25 06/15/25 Range/Units 16:16 20:04 05:53 Hgb (12.0-15.0) g/dL MCV (80.0-97.0) fL MCH (27.0-32.0) pg Plt Count (140-440) 10*3/uL Immature Gran # (0.00-0.04) 10*3/uL Lymphocytes # (0.90-5.00) 10*3/uL Eosinophils # (0.04-0.35) 10*3/uL Sodium (137-145) mmol/L Chloride (98-107) mmol/L Carbon Dioxide (22-30) mmol/L BUN (7-17) mg/dL Glucose (74-99) mg/dL POC Glucose (mg/dL) 165 H 167 H 149 H (70-110) mg/dL Calcium (8.4-10.2) mg/dL 06/15/25 06/15/25 06/15/25 Range/Units 07:52 07:52 11:33 Hgb 16.3 H (12.0-15.0) g/dL MCV 99.8 H (80.0-97.0) fL MCH 35.2 H (27.0-32.0) pg Plt Count 119 L (140-440) 10*3/uL Immature Gran # 0.40 H (0.00-0.04) 10*3/uL Lymphocytes # 0.51 L (0.90-5.00) 10*3/uL Eosinophils # 0.00 L (0.04-0.35) 10*3/uL Sodium 135 L (137-145) mmol/L Chloride 91 L (98-107) mmol/L Carbon Dioxide 37 H (22-30) mmol/L BUN 50 H (7-17) mg/dL Glucose 148 H (74-99) mg/dL POC Glucose (mg/dL) 196 H (70-110) mg/dL Calcium 10.3 H (8.4-10.2) mg/dL Microbiology - Last 24 Hours (Table) 06/12/25 15:19 Urine Culture - Final Urine,Voided Escherichia coli Assessment and Plan (1) Elevated troponin Current Visit: Yes Status: Acute Code(s): R77.8 - OTHER SPECIFIED ABNORMALITIES OF PLASMA PROTEINS SNOMED Code(s): 255984563 (2) Hypoxia Current Visit: Yes Status: Acute Priority: High Code(s): R09.02 - HYPOXEMIA SNOMED Code(s): 042916523 (3) Esophageal adenocarcinoma Current Visit: Yes Status: Chronic Priority: Medium Code(s): C15.9 - MALIGNANT NEOPLASM OF ESOPHAGUS, UNSPECIFIED SNOMED Code(s): 400354467 Plan: #Drug-induced pneumonitis secondary to Enhertu with possible superimposed aspiration pneumonia -CTA negative for PE. With interval development and enlargement of multiple soft tissue masses in the mid upper abdomen, retrocrural and periaortic region in addition to enlargement to new mediastinal and lower neck soft tissue masses. Pt just started on new treatment regimen. -Pulmonology following. Discussed with Pulm. Patient has been started on high- dose steroids, with Solu-Medrol 60 mg every 6 hours -Oxygen requirements have increased this morning and is now currently on Airvo from high flow nasal cannula -CT chest appears to show new consolidation in the right lower lobe in addition to persistent groundglass opacities secondary to pneumonitis from Enhertu -For now, continue Solu-Medrol, antibiotics. Continue Ativan as needed -We did discuss that if she required intubation, she likely would not be able to be extubated given her persistent underlying pneumonitis -Following discussing, she was agreeable to have a CODE STATUS of DNR/DNI #Carla esophagitis -Continue Diflucan and Kools solution q4h PRN and salt and soda mouthwash 3 times daily -Area of mucositis noted on the left tongue with significant improvement in thrush of the tongue and hard palate -Defer PEG tube for now #Metatstatic esophageal adenocarcinoma -Diagnostic and therapeutic circumstances as described in consult. -Patient completed cycle 1 of taxol/cyramza on 06/02. Noted progression on CTA chest, not consistent with tx failure. She has been off treatment and just restarted new treatment regimen on 06/02 -SOB symptoms persisting prior to treatment. Tx on hold until acute condition resolved -Extensive goals of care discussion took place on 06/12/2025. Joslyn and her family would like to see how her respiratory status is over the next few days prior to making final decision on hospice -DNR/DNI as noted above
[2025-06-15 16:29] LABS: Glucose,Whole Blood 187 mg/dL (70-110)
[2025-06-15 20:05] LABS: Glucose,Whole Blood 148 mg/dL (70-110)
--- NOTE | 2025-06-15 21:52 | P.PN ---
Subjective Progress Note Date: 06/15/25 Principal diagnosis: Reason for follow-up is UTI and request of pneumonia Patient is a 69-year-old female with a past medical history significant for Cancer, COPD, GERD/Reflux, Hyperlipidemia, Hypertension, Osteoarthritis (OA), Pneumonia, Thyroid Disorder presented to hospital for evaluation of shortness of breath, patient also have a urinary symptom positive UA concerning for UTI with urine culture stable finalized with an E. coli sensitive to ceftriaxone. On today's evaluation that is 06/15/2025, patient has been afebrile, patient is breathing comfortably and is currently on high flow nasal cannula oxygen, patient denies having any chest pain and cough, patient denies nausea vomiting or diarrhea and no abdominal pain. Patient white count is 8.[address] of the chest reveals possibility of developing right lower lobe pneumonia and multiple enlarged lymph nodes soft tissue masses in the mediastinum Objective - Vital Signs Vital signs: Vital Signs Temp 97.5 F L 06/15/25 11:13 Pulse 64 06/15/25 11:53 Resp 20 06/15/25 11:13 BP 108/75 06/15/25 11:13 Pulse Ox 98 06/15/25 11:41 FiO2 75 06/15/25 11:41 Intake & Output 06/14/25 06/15/25 06/15/25 18:59 06:59 18:59 Intake Total 225 100 Output Total 1036 200 Balance -811 -200 100 Weight 73.5 kg Intake: Intake, IV Titration 100 Amount Fluconazole in NaCl,Iso- 50 Osm 100 mg In Saline 1 50ml.bag @ 50 mls/hr IVPB DAILY JOHN Rx#:[id number] cefTRIAXone 2 gm In 50 Sodium Chloride 0.9% 50 ml @ 100 mls/hr IVPB Q24HR JOHN Rx#:[id number] Oral 225 Output: Urine 800 200 Post Void Residual 236 Other: Voiding Method External Catheter External Catheter External Catheter - Exam GENERAL DESCRIPTION: An elderly female lying in bed in no distress RESPIRATORY SYSTEM: Unlabored breathing , decreased breath sounds at bases HEART: S1 S2 regular rate and rhythm , ABDOMEN: Soft , no tenderness EXTREMITIES: No edema feet - Labs CBC & Chem 7: 06/15/25 07:52 06/15/25 07:52 Labs: Abnormal Lab Results - Last 24 Hours (Table) 06/14/25 06/14/25 06/15/25 Range/Units 16:16 20:04 05:53 Hgb (12.0-15.0) g/dL MCV (80.0-97.0) fL MCH (27.0-32.0) pg Plt Count (140-440) 10*3/uL Immature Gran # (0.00-0.04) 10*3/uL Lymphocytes # (0.90-5.00) 10*3/uL Eosinophils # (0.04-0.35) 10*3/uL Sodium (137-145) mmol/L Chloride (98-107) mmol/L Carbon Dioxide (22-30) mmol/L BUN (7-17) mg/dL Glucose (74-99) mg/dL POC Glucose (mg/dL) 165 H 167 H 149 H (70-110) mg/dL Calcium (8.4-10.2) mg/dL 06/15/25 06/15/25 06/15/25 Range/Units 07:52 07:52 11:33 Hgb 16.3 H (12.0-15.0) g/dL MCV 99.8 H (80.0-97.0) fL MCH 35.2 H (27.0-32.0) pg Plt Count 119 L (140-440) 10*3/uL Immature Gran # 0.40 H (0.00-0.04) 10*3/uL Lymphocytes # 0.51 L (0.90-5.00) 10*3/uL Eosinophils # 0.00 L (0.04-0.35) 10*3/uL Sodium 135 L (137-145) mmol/L Chloride 91 L (98-107) mmol/L Carbon Dioxide 37 H (22-30) mmol/L BUN 50 H (7-17) mg/dL Glucose 148 H (74-99) mg/dL POC Glucose (mg/dL) 196 H (70-110) mg/dL Calcium 10.3 H (8.4-10.2) mg/dL Microbiology - Last 24 Hours (Table) 06/12/25 15:19 Urine Culture - Final Urine,Voided Escherichia coli Assessment and Plan (1) Allergy to amoxicillin Current Visit: Yes Status: Acute Code(s): Z88.0 - ALLERGY STATUS TO PENICILLIN SNOMED Code(s): 687794125 (2) Urinary tract infection Current Visit: No Status: Acute Code(s): N39.0 - URINARY TRACT INFECTION, SITE NOT SPECIFIED SNOMED Code(s): 41183729 Plan: 1patient presented to hospital 9 days before initial consultation mostly for increasing shortness of breath also noticed to have decreased appetite s ignificantly concentrated urine positive UA concerning for symptomatic UTI patient did have mild suprapubic tenderness but no other urinary symptoms 2-patient with normal mental and amoxicillin allergy however tolerated Zosyn without any problem clinically doubt true penicillin allergy can be taken of the chart 3-urine culture has been finalized with E. coli that was sensitive to ceftriaxone antibiotic has been adjusted to ceftriaxone however there is also concern for possible development of right lower pneumonia with patient any significant cough or sputum production we will repeat his CRP and a procalcitonin level and try to obtain a sputum Dictation was produced using [employer](TM) by [employer] dictation software. please excuse any grammatical, word or spelling errors. Time with Patient: Less than 30
[2025-06-16 06:02] LABS: Glucose,Whole Blood 129 mg/dL (70-110)
[2025-06-16 06:24] LABS: Basophils # (A) 0.05 10*3/uL (0.00-0.10); Basophils % (A) 0.6 %; Eosinophils # (A) 0.00 10*3/uL (0.04-0.35); Eosinophils % (A) 0.0 %; HCT 44.1 % (37.2-46.3); HGB 15.4 g/dL (12.0-15.0); Lymphocytes # (A) 0.58 10*3/uL (0.90-5.00); Lymphocytes % (A) 6.9 %; MCH 34.7 pg (27.0-32.0); MCHC 34.9 g/dL (32.0-37.0); MCV 99.3 fL (80.0-97.0); Monocytes # (A) 0.49 10*3/uL (0.20-1.00); Monocytes % (A) 5.8 %; Neutrophils # (A) 6.98 10*3/uL (1.80-7.70); Neutrophils % (A) 82.7 %; RBC 4.44 10*6/uL (4.10-5.20); RDW 12.1 % (11.5-14.5); WBC 8.44 10*3/uL (4.50-10.00)
[2025-06-16 06:48] LABS: ALT 86 U/L (4-34); AST 78 U/L (14-36); African American GFR (CKD) 88 (>60 ml/min/1.73 sqM); Albumin 2.6 g/dL (3.5-5.0); Alkaline Phosphatase 234 U/L (38-126); Anion Gap 5 mmol/L; Blood Urea Nitrogen 59 mg/dL (7-17); Calcium 9.9 mg/dL (8.4-10.2); Carbon Dioxide 36 mmol/L (22-30); Chloride 90 mmol/L (98-107); Glucose 123 mg/dL (74-99); Non-African American GFR(CKD) 76 (>60 ml/min/1.73 sqM); Potassium 4.3 mmol/L (3.5-5.1); Sodium 131 mmol/L (137-145); Total Protein 5.1 g/dL (6.3-8.2)
[2025-06-16 10:36] LABS: Platelet Count 96 10*3/uL (140-440)
[2025-06-16 11:43] LABS: Glucose,Whole Blood 165 mg/dL (70-110)
[2025-06-16] MEDS: methylPREDNISolone SOD SUCCI 125 MG/2 ML VIAL IV STA (12:40)
--- NOTE | 2025-06-16 14:10 | P.PN ---
Subjective Progress Note Date: 06/16/25 06/08/2025 this is a pleasant 69-year-old female recently hospitalized and treated for hypoxemia, suspected drug-induced Enhertu pneumonitis, discharged on 05/10/2025. Received immunotherapy June 02, 2025, returned back to the hospital with increasing hypoxemia-worsened with exertion, cough, congestion. CTA ruled out PE, reported interval development and significant enlargement of multiple soft tissue masses in the mid upper abdomen, retrocrural and periaortic region in addition to enlargement and new mediastinal and lower neck soft tissue masses. Diffuse parenchymal groundglass changes superimposed on of somatic lungs may represent pulmonary edema versus fibrotic lung disease. Small left and trace right pleural effusions. Chest x-ray reported diffuse interstitial prominence suspicious for interstitial lung disease versus atypical pneumonia. Procalcitonin within normal limits. BNP 7770. maintained on nebulized bronchodilators, IV steroids and Symbicort. diuretics transitioned to oral. ox ygen titrated down to 8 L high flow nasal cannula. Afebrile. Chest ultrasound pending. 06/09/2025 chest ultrasound completed yesterday reporting right and left side not marked for possible thoracentesis-left pleural effusion pocket size 2.8 cm. Maintained on Symbicort, IV steroids, nebulized bronchodilators and oral diuretic. oxygen titrated down to 7 L, maintaining O2 sats in the low 90s. Blo od sugars controlled .telemetry sinus rhythm. Complaining of heartburn, occasional palpitations. Metoprolol increased. EKG pending. 06/10/2025 Complains of heartburn, significant gastroesophageal reflux disease accompanied by extensive oral thrush. Oral intake poor. no additional cardiac workup recommended at this time, cardiology has signed off today. Patient had a rough night with increased shortness of breath, requiring up to 12 L high flow nasal cannula. Oxygen currently weaned down to 10 L high flow. Chest x-ray ordered. 06/11/2025 maintained on nebulized bronchodilators, IV steroids, Symbicort .reports she slept better throughout the night without increase in shortness of breath. Maintaining O2 sats in the mid 90s on 8 L high flow nasal cannula. Yesterday PPI increased to twice daily, reports improvement in heartburn. Continues on Mycelex troches, fluconazole IVPB, cool's solution with improvement in oral thrush. Increase diet intake today compared to yesterday with 25% of breakfast consumed. Currently sipping on iced coffee drink. 24-hour I&O reflecting a 24-hour urine output of 775. Labs pending. 06/12/2025 maintaining O2 sats in the low 90s on 8 L nasal cannula. Positive bowel movement.Oralpharyngeal candidiasis significantly improved, yet diet intake remains poor. Family at bedside reports patient did not eat hardly anything yesterday nor this am. 06/13/2025 pt is awake alert vss afebrile patient having difficulty breathing steroid IV increased her pulmonary medicine oxygen requirements adjusted according to patient's needs, currently high flow at 8 L to maintain sats above 90 06/14/2025 pt is awake alert vss afebrile patient having difficulty breathing steroid IV increased her pulmonary medicine oxygen requirements adjusted according to patient's needs, currently high flow at 8 L to maintain sats above 90. 06/15/2025 evaluated by infectious disease with antibiotics adjusted .currently maintained on Ceftriaxone. Continues on fluconazole. Requiring Airvo recently titrated to 75% FiO2, on nebulized bronchodilators, IV steroids around -the-clock, Symbicort. Oropharyngeal candidiasis improving. Significantly diminished oral intake. TPN being considered. Evaluated by general surgery for potential PEG tube. Oncology recommending deferring PEG for now. 06/16/2025 maintained on antibiotics of ceftriaxone as per infectious disease. FiO2 weaned to 50%/Airvo. Afebrile, normal WBC. Hemoglobin 15.4, platelets 96. Diet intake fair. Continues on IV steroids 60 mg IV every 6 hours [id number], with nebulized bronchodilators and Symbicort. Repeat procalcitonin within normal limits, CRP elevated at 2.3, decreased from 04/02/2024 3.6. Objective - Vital Signs Vital signs: Vital Signs Temp 97.7 F 06/16/25 12:11 Pulse 60 06/16/25 12:11 Resp 16 06/16/25 12:11 BP 103/69 06/16/25 12:11 Pulse Ox 92 L 06/16/25 12:11 FiO2 50 06/16/25 11:33 Intake & Output 06/15/25 06/16/25 06/16/25 18:59 06:59 18:59 Intake Total 580 Output Total 600 200 Balance -20 -200 Weight 73.5 kg 73.5 kg Intake: Intake, IV Titration 100 Amount Fluconazole in NaCl,Iso- 50 Osm 100 mg In Saline 1 50ml.bag @ 50 mls/hr IVPB DAILY JOHN Rx#:[id number] cefTRIAXone 2 gm In 50 Sodium Chloride 0.9% 50 ml @ 100 mls/hr IVPB Q24HR JOHN Rx#:[id number] Oral 480 Output: Urine 600 200 Other: Voiding Method External Catheter External Catheter - Exam GENERAL:Pleasant, tired, sitting up in bed,Alert and oriented x 3, NAD, HEAD: Atraumatic, normocephalic. MMM NECK: Supple, no JVD LUNGS: coarse scattered crackles scattered, diminished bases HEART: S1 S2. Regular rate and rhythm. ABDOMEN: Soft, nondistended, nontender,no guarding. Positive bowel sounds EXTREMITIES:no edema. No clubbing or cyanosis. Peripheral pulses intact. NEUROLOGICAL: Cranial nerves II through XII grossly intact. SKIN: Warm, Dry, no rashes noted. - Labs CBC & Chem 7: 06/16/25 05:43 06/16/25 05:43 Labs: Abnormal Lab Results - Last 24 Hours (Table) 06/15/25 06/15/25 06/16/25 Range/Units 16:27 20:04 05:43 Hgb 15.4 H (12.0-15.0) g/dL MCV 99.3 H (80.0-97.0) fL MCH 34.7 H (27.0-32.0) pg Plt Count 96 L (140-440) 10*3/uL Immature Gran # 0.34 H (0.00-0.04) 10*3/uL Lymphocytes # 0.58 L (0.90-5.00) 10*3/uL Eosinophils # 0.00 L (0.04-0.35) 10*3/uL Sodium (137-145) mmol/L Chloride (98-107) mmol/L Carbon Dioxide (22-30) mmol/L BUN (7-17) mg/dL Glucose (74-99) mg/dL POC Glucose (mg/dL) 187 H 148 H (70-110) mg/dL AST (14-36) U/L ALT (4-34) U/L Alkaline Phosphatase (38-126) U/L C-Reactive Protein (<1.0) mg/dL Total Protein (6.3-8.2) g/dL Albumin (3.5-5.0) g/dL 06/16/25 06/16/25 06/16/25 Range/Units 05:43 06:00 11:42 Hgb (12.0-15.0) g/dL MCV (80.0-97.0) fL MCH (27.0-32.0) pg Plt Count (140-440) 10*3/uL Immature Gran # (0.00-0.04) 10*3/uL Lymphocytes # (0.90-5.00) 10*3/uL Eosinophils # (0.04-0.35) 10*3/uL Sodium 131 L (137-145) mmol/L Chloride 90 L (98-107) mmol/L Carbon Dioxide 36 H (22-30) mmol/L BUN 59 H (7-17) mg/dL Glucose 123 H (74-99) mg/dL POC Glucose (mg/dL) 129 H 165 H (70-110) mg/dL AST 78 H (14-36) U/L ALT 86 H (4-34) U/L Alkaline Phosphatase 234 H (38-126) U/L C-Reactive Protein 2.3 H (<1.0) mg/dL Total Protein 5.1 L (6.3-8.2) g/dL Albumin 2.6 L (3.5-5.0) g/dL Assessment and Plan Assessment: Acute hypoxic respiratory failure. CTA ruled out PE, reported interval development and significant enlargement of multiple soft tissue masses in the mid upper abdomen, retrocrural and periaortic region in addition to enlargement and new mediastinal and lower neck soft tissue masses. Diffuse parenchymal groundglass changes superimposed on of somatic lungs may represent pulmonary edema versus fibrotic lung disease. Small left and trace right pleural effusions. Procalcitonin within normal limits.per pulmonary's review of imaging, still consistent with diffuse drug-induced pneumonitis suspect related to previous Enhertu treatment. Gastroesophageal reflux disease Oral Candidiasis, extensive Recent immunotherapy on 06/02/2025 Recently treated inpatient for hypoxemia and suspected [id number] ,pneumonitis, discharged on 05/10/25. Paroxysmal atrial tachycardia, SVT Chronic paroxysmal atrial fibrillation Metastatic esophageal cancer, Enhertu chemo recently discontinued. New treatment restarted on 06/02/2025 Posterior retrocrural and lower paraesophageal masses, some enlarged lymphadenopathy within the mediastinum reported per CTA on prior visit 05/20 Chronic CHF exacerbation, diastolic dysfunction, EF 55 to 60%, ruled out as per cardiology and pulmonary. COPD History of ovarian cancer status post resection and chemotherapy Former nicotine dependence Hypothyroidism Hypertension .....and multiple other medical issues. UTI with E. coli Severe protein calorie malnutrition, BMI 24, albumin 3.1, total protein 6 No code Plan: Continue on current medication regimen ,monitoring and symptomatic treatment. Prognosis guarded given multiple complex medical issues. Aggressive pulmonary toileting, nebulized bronchodilators, steroids, Symbicort, diuretics, antibiotics, IV fluconazole. Further titrating of oxygen as tolerated, additional dose of Solu-Medrol. Family discussing potentially taking patient home once O2 amount permits. Hospice informational meeting pending. The impression and plan of care has been dictated as directed. : I performed a history and examination of this patient, discussed the same with the dictator. I agree with the dictator's note ,documented as a scribe. Any additional findings or plans will be noted.
--- NOTE | 2025-06-16 14:46 | P.PN ---
Subjective Progress Note Date: 06/16/25 Principal diagnosis: Reason for follow-up is UTI and request of pneumonia Patient is a 69-year-old female with a past medical history significant for Cancer, COPD, GERD/Reflux, Hyperlipidemia, Hypertension, Osteoarthritis (OA), Pneumonia, Thyroid Disorder presented to hospital for evaluation of shortness of breath, patient also have a urinary symptom positive UA concerning for UTI with urine culture stable finalized with an E. coli sensitive to ceftriaxone. On today's evaluation that is 06/16/2025, Patient is afebrile this morning patient denies having any chest pain breathing slightly comfortably FiO2 is down to 40% still requiring high flow nasal cannula oxygen patient denies any worsening cough or sputum production no abdominal pain or diarrhea. Patient white count is 8.44 creatinine 0.80 Pro-Quan 0.26 Objective - Vital Signs Vital signs: Vital Signs Temp 97.7 F 06/16/25 12:11 Pulse 60 06/16/25 12:11 Resp 16 06/16/25 12:11 BP 103/69 06/16/25 12:11 Pulse Ox 92 L 06/16/25 12:11 FiO2 50 06/16/25 11:33 Intake & Output 06/15/25 06/16/25 06/16/25 18:59 06:59 18:59 Intake Total 580 Output Total 600 200 Balance -20 -200 Weight 73.5 kg 73.5 kg Intake: Intake, IV Titration 100 Amount Fluconazole in NaCl,Iso- 50 Osm 100 mg In Saline 1 50ml.bag @ 50 mls/hr IVPB DAILY JOHN Rx#:[id number] cefTRIAXone 2 gm In 50 Sodium Chloride 0.9% 50 ml @ 100 mls/hr IVPB Q24HR JOHN Rx#:[id number] Oral 480 Output: Urine 600 200 Other: Voiding Method External Catheter External Catheter - Exam GENERAL DESCRIPTION: An elderly female lying in bed in no distress RESPIRATORY SYSTEM: Unlabored breathing , decreased breath sounds at bases HEART: S1 S2 regular rate and rhythm , ABDOMEN: Soft , no tenderness EXTREMITIES: No edema feet - Labs CBC & Chem 7: 06/16/25 05:43 06/16/25 05:43 Labs: Abnormal Lab Results - Last 24 Hours (Table) 06/15/25 06/15/25 06/16/25 Range/Units 16:27 20:04 05:43 Hgb 15.4 H (12.0-15.0) g/dL MCV 99.3 H (80.0-97.0) fL MCH 34.7 H (27.0-32.0) pg Plt Count 96 L (140-440) 10*3/uL Immature Gran # 0.34 H (0.00-0.04) 10*3/uL Lymphocytes # 0.58 L (0.90-5.00) 10*3/uL Eosinophils # 0.00 L (0.04-0.35) 10*3/uL Sodium (137-145) mmol/L Chloride (98-107) mmol/L Carbon Dioxide (22-30) mmol/L BUN (7-17) mg/dL Glucose (74-99) mg/dL POC Glucose (mg/dL) 187 H 148 H (70-110) mg/dL AST (14-36) U/L ALT (4-34) U/L Alkaline Phosphatase (38-126) U/L C-Reactive Protein (<1.0) mg/dL Total Protein (6.3-8.2) g/dL Albumin (3.5-5.0) g/dL 06/16/25 06/16/25 06/16/25 Range/Units 05:43 06:00 11:42 Hgb (12.0-15.0) g/dL MCV (80.0-97.0) fL MCH (27.0-32.0) pg Plt Count (140-440) 10*3/uL Immature Gran # (0.00-0.04) 10*3/uL Lymphocytes # (0.90-5.00) 10*3/uL Eosinophils # (0.04-0.35) 10*3/uL Sodium 131 L (137-145) mmol/L Chloride 90 L (98-107) mmol/L Carbon Dioxide 36 H (22-30) mmol/L BUN 59 H (7-17) mg/dL Glucose 123 H (74-99) mg/dL POC Glucose (mg/dL) 129 H 165 H (70-110) mg/dL AST 78 H (14-36) U/L ALT 86 H (4-34) U/L Alkaline Phosphatase 234 H (38-126) U/L C-Reactive Protein 2.3 H (<1.0) mg/dL Total Protein 5.1 L (6.3-8.2) g/dL Albumin 2.6 L (3.5-5.0) g/dL Assessment and Plan (1) Allergy to amoxicillin Current Visit: Yes Status: Acute Code(s): Z88.0 - ALLERGY STATUS TO PENICILLIN SNOMED Code(s): 211897831 (2) Urinary tract infection Current Visit: No Status: Acute Code(s): N39.0 - URINARY TRACT INFECTION, SITE NOT SPECIFIED SNOMED Code(s): 96667149 Plan: 1patient presented to hospital 9 days before initial consultation mostly for increasing shortness of breath also noticed to have decreased appetite significantly concentrated urine positive UA concerning for symptomatic UTI patient did have mild suprapubic tenderness but no other urinary symptoms 2-patient with normal mental and amoxicillin allergy however tolerated Zosyn without any problem clinically doubt true penicillin allergy can be taken of the chart 3-urine culture has been finalized with E. coli that was sensitive to ceftriaxone 4patient also have a CT of the chest 06/14/2025 afternoon raising possibility of developing right lower lobe pneumonia however the patient did have normal procalcitonin antibiotic will be just to cefepime for more broader gram-negative coverage and see clinical response prognosis remains to be guarded and will monitor clinical course closely Dictation was produced using [employer] dictation software. please excuse any grammatical, word or spelling errors. Time with Patient: Less than 30
[2025-06-16] MEDS: CEFEPIME 2 GM in SODIUM CHLORIDE 0.9% 100 ML IVPB SCH (16:11)
[2025-06-16 16:37] LABS: Glucose,Whole Blood 161 mg/dL (70-110)
[2025-06-16 19:49] LABS: Glucose,Whole Blood 184 mg/dL (70-110)
[2025-06-17 06:01] LABS: Glucose,Whole Blood 164 mg/dL (70-110)
--- NOTE | 2025-06-17 11:42 | P.PN ---
Subjective Progress Note Date: 06/17/25 06/08/2025 this is a pleasant 69-year-old female recently hospitalized and treated for hypoxemia, suspected drug-induced Enhertu pneumonitis, discharged on 05/10/2025. Received immunotherapy June 02, 2025, returned back to the hospital with increasing hypoxemia-worsened with exertion, cough, congestion. CTA ruled out PE, reported interval development and significant enlargement of multiple soft tissue masses in the mid upper abdomen, retrocrural and periaortic region in addition to enlargement and new mediastinal and lower neck soft tissue masses. Diffuse parenchymal groundglass changes superimposed on of somatic lungs may represent pulmonary edema versus fibrotic lung disease. Small left and trace right pleural effusions. Chest x-ray reported diffuse interstitial prominence suspicious for interstitial lung disease versus atypical pneumonia. Procalcitonin within normal limits. BNP 7770. maintained on nebulized bronchodilators, IV steroids and Symbicort. diuretics transitioned to oral. ox ygen titrated down to 8 L high flow nasal cannula. Afebrile. Chest ultrasound pending. 06/09/2025 chest ultrasound completed yesterday reporting right and left side not marked for possible thoracentesis-left pleural effusion pocket size 2.8 cm. Maintained on Symbicort, IV steroids, nebulized bronchodilators and oral diuretic. oxygen titrated down to 7 L, maintaining O2 sats in the low 90s. Blo od sugars controlled .telemetry sinus rhythm. Complaining of heartburn, occasional palpitations. Metoprolol increased. EKG pending. 06/10/2025 Complains of heartburn, significant gastroesophageal reflux disease accompanied by extensive oral thrush. Oral intake poor. no additional cardiac workup recommended at this time, cardiology has signed off today. Patient had a rough night with increased shortness of breath, requiring up to 12 L high flow nasal cannula. Oxygen currently weaned down to 10 L high flow. Chest x-ray ordered. 06/11/2025 maintained on nebulized bronchodilators, IV steroids, Symbicort .reports she slept better throughout the night without increase in shortness of breath. Maintaining O2 sats in the mid 90s on 8 L high flow nasal cannula. Yesterday PPI increased to twice daily, reports improvement in heartburn. Continues on Mycelex troches, fluconazole IVPB, cool's solution with improvement in oral thrush. Increase diet intake today compared to yesterday with 25% of breakfast consumed. Currently sipping on iced coffee drink. 24-hour I&O reflecting a 24-hour urine output of 775. Labs pending. 06/12/2025 maintaining O2 sats in the low 90s on 8 L nasal cannula. Positive bowel movement.Oralpharyngeal candidiasis significantly improved, yet diet intake remains poor. Family at bedside reports patient did not eat hardly anything yesterday nor this am. 06/13/2025 pt is awake alert vss afebrile patient having difficulty breathing steroid IV increased her pulmonary medicine oxygen requirements adjusted according to patient's needs, currently high flow at 8 L to maintain sats above 90 06/14/2025 pt is awake alert vss afebrile patient having difficulty breathing steroid IV increased her pulmonary medicine oxygen requirements adjusted according to patient's needs, currently high flow at 8 L to maintain sats above 90. 06/15/2025 evaluated by infectious disease with antibiotics adjusted .currently maintained on Ceftriaxone. Continues on fluconazole. Requiring Airvo recently titrated to 75% FiO2, on nebulized bronchodilators, IV steroids around -the-clock, Symbicort. Oropharyngeal candidiasis improving. Significantly diminished oral intake. TPN being considered. Evaluated by general surgery for potential PEG tube. Oncology recommending deferring PEG for now. 06/16/2025 maintained on antibiotics of ceftriaxone as per infectious disease. FiO2 weaned to 50%/Airvo. Afebrile, normal WBC. Hemoglobin 15.4, platelets 96. Diet intake fair. Continues on IV steroids 60 mg IV every 6 hours [id number], with nebulized bronchodilators and Symbicort. Repeat procalcitonin within normal limits, CRP elevated at 2.3, decreased from 04/02/2024 3.6. 06/17/2025 Airvo ,FiO2 50%, maintaining O2 sats in the low 90s. Sitting up in bed, using her incentive spirometer. Reports she ate cream of wheat this morning. Afebrile. Blood sugars controlled. Antibiotics adjusted to cefepime as per ID. Family had hospice informational meeting yesterday. Objective - Vital Signs Vital signs: Vital Signs Temp 97.5 F L 06/17/25 11:16 Pulse 57 L 06/17/25 11:16 Resp 14 06/17/25 11:16 BP 117/77 06/17/25 11:16 Pulse Ox 93 L 07/23/25 11:16 FiO2 50 06/17/25 07:45 Intake & Output 06/16/25 06/17/25 06/17/25 18:59 06:59 18:59 Intake Total 480 Output Total 400 Balance 80 Weight 64.5 kg Intake: Oral 480 Output: Urine 400 Other: Voiding Method External Catheter External Catheter # Voids 1 # Bowel Movements 0 - Exam GENERAL:Pleasant, weak, fatigued, sitting up in bed,Alert and oriented x 2, NAD, HEAD: Atraumatic, normocephalic. MMM NECK: Supple, no JVD LUNGS: diminished HEART: S1 S2. Regular rate and rhythm. ABDOMEN: Soft, nondistended, nontender,no guarding. Positive bowel sounds EXTREMITIES:no edema. No clubbing or cyanosis. Peripheral pulses intact. NEUROLOGICAL: Cranial nerves II through XII grossly intact. SKIN: Warm, Dry, no rashes noted. - Labs CBC & Chem 7: 06/16/25 05:43 06/16/25 05:43 Labs: Abnormal Lab Results - Last 24 Hours (Table) 06/16/25 06/16/25 06/16/25 Range/Units 11:42 16:35 19:48 POC Glucose (mg/dL) 165 H 161 H 184 H (70-110) mg/dL 06/17/25 Range/Units 06:00 POC Glucose (mg/dL) 164 H (70-110) mg/dL Assessment and Plan Assessment: Acute hypoxic respiratory failure. CTA ruled out PE, reported interval development and significant enlargement of multiple soft tissue masses in the mid upper abdomen, retrocrural and periaortic region in addition to enlargement and new mediastinal and lower neck soft tissue masses. Diffuse parenchymal groundglass changes superimposed on of somatic lungs may represent pulmonary edema versus fibrotic lung disease. Small left and trace right pleural effusions. Procalcitonin within normal limits.per pulmonary's review of imaging, still consistent with diffuse drug-induced pneumonitis suspect related to previous Enhertu treatment. Gastroesophageal reflux disease Oral Candidiasis, extensive Recent immunotherapy on 06/02/2025 Recently treated inpatient for hypoxemia and suspected [id number] ,pneumonitis, discharged on 05/10/25. Paroxysmal atrial tachycardia, SVT Chronic paroxysmal atrial fibrillation Metastatic esophageal cancer, Enhertu chemo recently discontinued. New treatment restarted on 06/02/2025 Posterior retrocrural and lower paraesophageal masses, some enlarged lymphadenopathy within the mediastinum reported per CTA on prior visit 05/20 Chronic CHF exacerbation, diastolic dysfunction, EF 55 to 60%, ruled out as per cardiology and pulmonary. COPD History of ovarian cancer status post resection and chemotherapy Former nicotine dependence Hypothyroidism Hypertension .....and multiple other medical issues. UTI with E. coli Severe protein calorie malnutrition, BMI 24, albumin 3.1, total protein 6 No code Plan: Continue on current medication regimen ,monitoring and symptomatic treatment. Prognosis guarded given multiple complex medical issues. Maintain aggressive pulmonary toileting, nebulized bronchodilators, steroids, Symbicort, diuretics, antibiotics, IV fluconazole. Hospice informational meeting completed with family yesterday. Maintain supportive care. The impression and plan of care has been dictated as directed. : I performed a history and examination of this patient, discussed the same with the dictator. I agree with the dictator's note ,documented as a scribe. Any additional findings or plans will be noted.
[2025-06-17 11:43] LABS: Glucose,Whole Blood 186 mg/dL (70-110)
[2025-06-17 16:45] LABS: Glucose,Whole Blood 183 mg/dL (70-110)
--- NOTE | 2025-06-17 18:33 | P.PN ---
Subjective Progress Note Date: 06/17/25 Reporting improvement in breathing, stating she is feeling better today. Continues on airvo,40L. Continues high dose steroids and bronchodilators and IV abx for suspected pneumonia. Family had hospice informational session Objective - Vital Signs Vital signs: Vital Signs Temp 97.5 F L 06/17/25 11:16 Pulse 55 L 06/17/25 11:32 Resp 14 06/17/25 11:16 BP 117/77 06/17/25 11:16 Pulse Ox 94 L 06/17/25 11:32 FiO2 55 06/17/25 11:32 Intake & Output 06/16/25 06/17/25 06/17/25 18:59 06:59 18:59 Intake Total 480 Output Total 400 Balance 80 Weight 64.5 kg Intake: Oral 480 Output: Urine 400 Other: Voiding Method External Catheter External Catheter # Voids 1 # Bowel Movements 0 - Constitutional General appearance: Present: no acute distress - EENT EENT Comment(s): mucositis improving Eyes: Present: anicteric sclerae, EOMI ENT: Present: hearing grossly normal - Respiratory Details: breathing is mildly labored - Cardiovascular Details: skin warm and dry - Musculoskeletal Musculoskeletal: Present: generalized weakness - Labs CBC & Chem 7: 06/16/25 05:43 06/16/25 05:43 Labs: Abnormal Lab Results - Last 24 Hours (Table) 06/16/25 06/16/25 06/17/25 Range/Units 16:35 19:48 06:00 POC Glucose (mg/dL) 161 H 184 H 164 H (70-110) mg/dL 06/17/25 Range/Units 11:42 POC Glucose (mg/dL) 186 H (70-110) mg/dL Assessment and Plan (1) Elevated troponin Current Visit: Yes Status: Acute Code(s): R77.8 - OTHER SPECIFIED ABNORMALITIES OF PLASMA PROTEINS SNOMED Code(s): 505897055 (2) Hypoxia Current Visit: Yes Status: Acute Priority: High Code(s): R09.02 - HYPOXEMIA SNOMED Code(s): 920565531 (3) Esophageal adenocarcinoma Current Visit: Yes Status: Chronic Priority: Medium Code(s): C15.9 - MALIGNANT NEOPLASM OF ESOPHAGUS, UNSPECIFIED SNOMED Code(s): 120793338 Plan: #Drug-induced pneumonitis secondary to Enhertu with possible superimposed aspiration pneumonia -CTA negative for PE. With interval development and enlargement of multiple soft tissue masses in the mid upper abdomen, retrocrural and periaortic region in addition to enlargement to new mediastinal and lower neck soft tissue masses. Pt just started on new treatment regimen. -Pulmonology following. Discussed with Pulm. Patient has been started on high-dose steroids, with Solu-Medrol 60 mg every 6 hours -Oxygen requirements have increased this morning and is now currently on Airvo from high flow nasal cannula -CT chest appears to show new consolidation in the right lower lobe in addition to persistent groundglass opacities secondary to pneumonitis from Enhertu -For now, continue Solu-Medrol, antibiotics. Continue Ativan as needed -We did discuss that if she required intubation, she likely would not be able to be extubated given her persistent underlying pneumonitis -Following discussing, she was agreeable to have a CODE STATUS of DNR/DNI #Carla esophagitis -Continue Diflucan and Kools solution q4h PRN and salt and soda mouthwash 3 times daily -Area of mucositis noted on the left tongue with significant improvement in thrush of the tongue and hard palate -Defer PEG tube for now #Metatstatic esophageal adenocarcinoma -Diagnostic and therapeutic circumstances as described in consult. -Patient completed cycle 1 of taxol/cyramza on 06/02. Noted progression on CTA chest, not consistent with tx failure. She has been off treatment and just restarted new treatment regimen on 06/02 -SOB symptoms persisting prior to treatment. Tx on hold until acute condition resolved -Extensive goals of care discussion took place on 06/12/2025. Joslyn and her family would like to see how her respiratory status is over the next few days prior to making final decision on hospice -DNR/DNI as noted above Unofortunately, patient respiratory status has not shown any significant improvement, which has been exacerbated by suspected pneumonia. Family has met with hospice for informational session. They are going to try to wean O2 today to nasal cannula to see if they can bring patient home We will continue to follow and remain available for any questions or concerns
[2025-06-17 20:06] LABS: Glucose,Whole Blood 190 mg/dL (70-110)
[2025-06-18 03:54] VITALS: RESP 18; TEMP 97.6
[2025-06-18 05:56] LABS: Glucose,Whole Blood 157 mg/dL (70-110)
[2025-06-18 08:09] VITALS: BP 117/83
[2025-06-18 08:51] VITALS: PULSE 64
--- NOTE | 2025-06-18 08:57 | P.DS ---
Providers Date of admission: 06/05/25 19:24 Expected date of discharge: 06/18/25 Attending physician: Caleb Fisher Consults: 06/05/25 19:17 Consult Physician Urgent Consulting Provider: Trent Bailey Consult Reason/Comments: hypoxic resp failure, pulmonary fibrosis Do you want consulting provider notified?: Yes Consult Physician Urgent Consulting Provider: Rusty Patterson Consult Reason/Comments: esophageal cancer on chemo Do you want consulting provider notified?: Yes 06/07/25 08:55 Consult Physician Routine Consulting Provider: Maurice Mock Consult Reason/Comments: Elevated trops Do you want consulting provider notified?: Yes 06/13/25 22:17 Consult Physician Routine Consulting Provider: Lorna Ross Consult Reason/Comments: Urosepsis Do you want consulting provider notified?: Yes, Notify in am Primary care physician: [facility] Course: Final Diagnosis: Acute hypoxic respiratory failure. CTA ruled out PE, reported interval development and significant enlargement of multiple soft tissue masses in the mid upper abdomen, retrocrural and periaortic region in addition to enlargement and new mediastinal and lower neck soft tissue masses. Diffuse parenchymal groundglass changes superimposed on of somatic lungs may represent pulmonary edema versus fibrotic lung disease. Small left and trace right pleural effusions. Procalcitonin within normal limits.per pulmonary's review of imaging, still consistent with diffuse drug-induced pneumonitis suspect related to previous Enhertu treatment. Gastroesophageal reflux disease Oral Candidiasis, extensive Recent immunotherapy on 06/02/2025 Recently treated inpatient for hypoxemia and suspected qjvx-[id number] ,pneumonitis, discharged on 05/10/25. Paroxysmal atrial tachycardia, SVT Chronic paroxysmal atrial fibrillation Metastatic esophageal cancer, Enhertu chemo recently discontinued. New treatment restarted on 06/02/2025 Posterior retrocrural and lower paraesophageal masses, some enlarged lymphadenopathy within the mediastinum reported per CTA on prior visit 05/20 Chronic CHF exacerbation, diastolic dysfunction, EF 55 to 60%, ruled out as per cardiology and pulmonary. COPD History of ovarian cancer status post resection and chemotherapy Former nicotine dependence Hypothyroidism Hypertension .....and multiple other medical issues. UTI with E. coli Severe protein calorie malnutrition, BMI 24, albumin 3.1, total protein 6 No code Hospital course:06/08/2025 this is a pleasant 69-year-old female recently hospitalized and treated for hypoxemia, suspected drug-induced Enhertu pneumonitis, discharged on 05/10/2025. Received immunotherapy June 02, 2025, returned back to the hospital with increasing hypoxemia-worsened with exertion, cough, congestion. CTA ruled out PE, reported interval development and significant enlargement of multiple soft tissue masses in the mid upper abdomen, retrocrural and periaortic region in addition to enlargement and new mediastinal and lower neck soft tissue masses. Diffuse parenchymal groundglass changes superimposed on of somatic lungs may represent pulmonary edema versus fibrotic lung disease. Small left and trace right pleural effusions. Chest x-ray reported diffuse interstitial prominence suspicious for interstitial lung disease versus atypical pneumonia. Procalcitonin within normal limits. BNP 7770. maintained on nebulized bronchodilators, IV steroids and Symbicort. diuretics transitioned to oral. oxygen titrated down to 8 L high flow nasal cannula. Afebrile. Chest ultrasound pending. 06/09/2025 chest ultrasound completed yesterday reporting right and left side not marked for possible thoracentesis-left pleural effusion pocket size 2.8 cm. Maintained on Symbicort, IV steroids, nebulized bronchodilators and oral diuretic. oxygen titrated down to 7 L, maintaining O2 sats in the low 90s. Blood sugars controlled .telemetry sinus rhythm. Complaining of heartburn, occasional palpitations. Metoprolol increased. EKG pending. 06/10/2025 Complains of heartburn, significant gastroesophageal reflux disease accompanied by extensive oral thrush. Oral intake poor. no additional cardiac workup recommended at this time, cardiology has signed off today. Patient had a rough night with increased shortness of breath, requiring up to 12 L high flow nasal cannula. Oxygen currently weaned down to 10 L high flow. Chest x-ray ordered. 06/11/2025 maintained on nebulized bronchodilators, IV steroids, Symbicort .reports she slept better throughout the night without increase in shortness of breath. Maintaining O2 sats in the mid 90s on 8 L high flow nasal cannula. Yesterday PPI increased to twice daily, reports improvement in heartburn. Continues on Mycelex troches, fluconazole IVPB, cool's solution with improvement in oral thrush. Increase diet intake today compared to yesterday with 25% of breakfast consumed. Currently sipping on iced coffee drink. 24-hour I&O reflecting a 24-hour urine output of 775. Labs pending. 06/12/2025 maintaining O2 sats in the low 90s on 8 L nasal cannula. Positive bowel movement.Oralpharyngeal candidiasis significantly improved, yet diet intake remains poor. Family at bedside reports patient did not eat hardly anything yesterday nor this am. 06/13/2025 pt is awake alert vss afebrile patient having difficulty breathing steroid IV increased her pulmonary medicine oxygen requirements adjusted according to patient's needs, currently high flow at 8 L to maintain sats above 90 06/14/2025 pt is awake alert vss afebrile patient having difficulty breathing steroid IV increased her pulmonary medicine oxygen requirements adjusted according to patient's needs, currently high flow at 8 L to maintain sats above 90. 06/15/2025 evaluated by infectious disease with antibiotics adjusted .currently maintained on Ceftriaxone. Continues on fluconazole. Requiring Airvo recently titrated to 75% FiO2, on nebulized bronchodilators, IV steroids [id number], Symbicort. Oropharyngeal candidiasis improving. Significantly diminished oral intake. TPN being considered. Evaluated by general surgery for potential PEG tube. Oncology recommending deferring PEG for now. 06/16/2025 maintained on antibiotics of ceftriaxone as per infectious disease. FiO2 weaned to 50%/Airvo. Afebrile, normal WBC. Hemoglobin 15.4, platelets 96. Diet intake fair. Continues on IV steroids 60 mg IV every 6 hours [id number], with nebulized bronchodilators and Symbicort. Repeat procalcitonin within normal limits, CRP elevated at 2.3, decreased from 04/02/2024 3.6. 06/17/2025 Airvo ,FiO2 50%, maintaining O2 sats in the low 90s. Sitting up in bed, using her incentive spirometer. Reports she ate cream of wheat this morning. Afebrile. Blood sugars controlled. Antibiotics adjusted to cefepime as per ID. Family had hospice informational meeting yesterday. Prognosis guarded given multiple complex medical issues. Maintain aggressive pulmonary toileting, nebulized bronchodilators, steroids, Symbicort, diuretics, antibiotics, IV fluconazole. Hospice informational meeting completed with family yesterday. Maintain supportive care. Yesterday patient and family decided to proceed home with [facility]. DME arranged as per case management. Pain management/comfort package confirmed with [facility]-which they will provide family with prior to transport. Multiple family members at bedside, questions and concerns addressed. Support given. patient will be discharged home with hospice via EMS ambulance transport today in a stable condition with guarded prognosis. The impression and plan of care has been dictated as directed. : I performed a history and examination of this patient, discussed the same with the dictator. I agree with the dictator's note ,documented as a scribe. Any additional findings or plans will be noted. Patient Condition at Discharge: Stable Plan - Discharge Summary New Discharge Prescriptions: New Sucralfate [Carafate] 1 gm PO ACHS #120 tab Ipratropium-Albuterol Nebulize [Duoneb 0.5 mg-3 mg/3 ml Soln] 3 ml INHALATION RT-QID #120 each Furosemide [Lasix] 40 mg PO DAILY #30 tab Metoprolol Tartrate [Lopressor] 25 mg PO BID #60 tab Nystatin 100,000 Unit/ml Susp [Mycostatin Oral Susp] 3,000,000 unit PO TID ml Pantoprazole Sodium [Protonix] 40 mg PO BID #60 tab Sennosides-Docusate Sodium [Senokot-S] 2 each PO BID #60 tab Continue Levothyroxine Sodium [Synthroid] 88 mcg PO DAILY@0600 ALPRAZolam [Xanax] 0.25 mg PO BID PRN PRN Reason: Anxiety Apixaban [Eliquis] 5 mg PO BID #60 tab Albuterol Nebulized [Ventolin Nebulized] 2.5 mg INHALATION RT-TID PRN PRN Reason: Shortness Of Breath Albuterol Nebulized [Ventolin Nebulized] 2.5 mg INHALATION RT-DAILY HYDROcodone/APAP 10-325MG [[place] 10-325] 1 tab PO Q4H PRN PRN Reason: Moderate Pain (Scale 4 To 6) predniSONE 60 mg PO DAILY Mirtazapine [Remeron] 15 mg PO HS Fluticasone Propion/Salmeterol [Advair 250-50 Diskus] 1 puff INHALATION RT- BID Potassium Chloride ER [K-Dur 20] 20 meq PO DAILY Discontinued Omeprazole 20 mg PO DAILY Pravastatin Sodium 80 mg PO HS Magnesium Oxide [Mag-Ox] 400 mg PO DAILY Furosemide [Lasix] 20 mg PO DAILY Metoprolol Tartrate [Lopressor] 12.5 mg PO BID Discharge Medication List Levothyroxine Sodium [Synthroid] 88 mcg PO DAILY@0600 06/30/15 [History] ALPRAZolam [Xanax] 0.25 mg PO BID PRN 07/31/17 [History] Mirtazapine [Remeron] 15 mg PO HS 06/26/24 [History] Fluticasone Propion/Salmeterol [Advair 250-50 Diskus] 1 puff INHALATION RT-BID 05/01/25 [History] Potassium Chloride ER [K-Dur 20] 20 meq PO DAILY 05/01/25 [History] Apixaban [Eliquis] 5 mg PO BID #60 tab 05/08/25 [Rx] Albuterol Nebulized [Ventolin Nebulized] 2.5 mg INHALATION RT-DAILY 06/05/25 [History] Albuterol Nebulized [Ventolin Nebulized] 2.5 mg INHALATION RT-TID PRN 06/05/25 [History] HYDROcodone/APAP 10-325MG [[place] 10-325] 1 tab PO Q4H PRN 06/05/25 [History] predniSONE 60 mg PO DAILY 06/05/25 [History] Furosemide [Lasix] 40 mg PO DAILY #30 tab 06/18/25 [Rx] Ipratropium-Albuterol Nebulize [Duoneb 0.5 mg-3 mg/3 ml Soln] 3 ml INHALATION RT-QID #120 each 06/18/25 [Rx] Metoprolol Tartrate [Lopressor] 25 mg PO BID #60 tab 06/18/25 [Rx] Nystatin 100,000 Unit/ml Susp [Mycostatin Oral Susp] 3,000,000 unit PO TID ml 06/18/25 [Rx] Pantoprazole Sodium [Protonix] 40 mg PO BID #60 tab 06/18/25 [Rx] Sennosides-Docusate Sodium [Senokot-S] 2 each PO BID #60 tab 06/18/25 [Rx] Sucralfate [Carafate] 1 gm PO ACHS #120 tab 06/18/25 [Rx] Follow up Appointment(s)/Referral(s): Caleb Fisher Jr, DO [Primary Care Provider] - As Needed Activity/Diet/Wound Care/Special Instructions: Hernandez Catheter to be placed prior to transport Discharge Disposition: HOME WITH HOSPICE
[2025-06-18] MEDS: MORPHINE SULFATE 2 MG/ML SYRINGE IVP STA (11:10)
--- NOTE | 2025-06-18 14:18 | P.PN ---
Subjective Progress Note Date: 06/17/25 Principal diagnosis: Reason for follow-up is UTI and request of pneumonia Patient is a 69-year-old female with a past medical history significant for Cancer, COPD, GERD/Reflux, Hyperlipidemia, Hypertension, Osteoarthritis (OA), Pneumonia, Thyroid Disorder presented to hospital for evaluation of shortness of breath, patient also have a urinary symptom positive UA concerning for UTI with urine culture stable finalized with an E. coli sensitive to ceftriaxone. On today's evaluation that is 06/17/2025,the patient denies any fever or any chills, patient is breathing comfortably and is down to 10 L nasal cannula oxygen, the patient denies chest pain shortness of breath and no significant cough, patient denies abdominal pain, no nausea vomiting or diarrhea. No new labs has been obtained today Objective - Vital Signs Vital signs: Vital Signs Temp 97.4 F L 06/17/25 08:31 Pulse 70 06/17/25 08:31 Resp 16 06/17/25 08:31 BP 122/83 06/17/25 08:31 Pulse Ox 90 L 06/17/25 08:31 FiO2 50 06/17/25 07:45 Intake & Output 06/16/25 06/17/25 06/17/25 18:59 06:59 18:59 Intake Total 480 Output Total 400 Balance 80 Weight 64.5 kg Intake: Oral 480 Output: Urine 400 Other: Voiding Method External Catheter External Catheter # Voids 1 # Bowel Movements 0 - Exam GENERAL DESCRIPTION: An elderly female lying in bed in no distress RESPIRATORY SYSTEM: Unlabored breathing , decreased breath sounds at bases HEART: S1 S2 regular rate and rhythm , ABDOMEN: Soft , no tenderness EXTREMITIES: No edema feet - Labs CBC & Chem 7: 06/16/25 05:43 06/16/25 05:43 Labs: Abnormal Lab Results - Last 24 Hours (Table) 06/16/25 06/16/25 06/16/25 Range/Units 11:42 16:35 19:48 POC Glucose (mg/dL) 165 H 161 H 184 H (70-110) mg/dL 06/17/25 Range/Units 06:00 POC Glucose (mg/dL) 164 H (70-110) mg/dL Assessment and Plan (1) Allergy to amoxicillin Status: Acute Code(s): Z88.0 - ALLERGY STATUS TO PENICILLIN SNOMED Code(s): 438027578 (2) Urinary tract infection Status: Acute Code(s): N39.0 - URINARY TRACT INFECTION, SITE NOT SPECIFIED SNOMED Code(s): 81796745 Plan: 1patient presented to hospital 9 days before initial consultation mostly for increasing shortness of breath also noticed to have decreased appetite significantly concentrated urine positive UA concerning for symptomatic UTI patient did have mild suprapubic tenderness but no other urinary symptoms 2-patient with normal mental and amoxicillin allergy however tolerated Zosyn without any problem clinically doubt true penicillin allergy can be taken of the chart 3-urine culture has been finalized with E. coli that was sensitive to ceftriaxone 4patient also have a CT of the chest 06/14/2025, raising possibility of developing right lower lobe pneumonia however the patient did have normal pr ocalcitonin. 5patient is currently being treated with the cefepime O2 requirement is going down care has been discussed in detail with the family the bedside Dictation was produced using [employer] dictation software. please excuse any grammatical, word or spelling errors. Time with Patient: Less than 30
== END 2025-06-18 11:35 | disposition hospice, home (50) | DRG 205 ==
LOC: EC 16:06 → 3SCARD 19:24
PROVIDERS: ADMIT Family Medicine; ATTEND Family Medicine
DX: J70.4 Drug-induced interstitial lung disorders, unspecified (principal); E43 Unspecified severe protein-calorie malnutrition; I21.A1 Myocardial infarction type 2; J96.01 Acute respiratory failure with hypoxia; B37.89 Other sites of candidiasis; C15.5 Malignant neoplasm of lower third of esophagus; B37.0 Candidal stomatitis; J84.10 Pulmonary fibrosis, unspecified; I11.0 Hypertensive heart disease with heart failure; I27.21 Secondary pulmonary arterial hypertension; J43.9 Emphysema, unspecified; E03.9 Hypothyroidism, unspecified; B37.81 Candidal esophagitis; I47.19 Other supraventricular tachycardia; I45.2 Bifascicular block; J98.19 Other pulmonary collapse; N39.0 Urinary tract infection, site not specified; I48.0 Paroxysmal atrial fibrillation; J18.9 Pneumonia, unspecified organism; Z68.24 Body mass index [BMI] 24.0-24.9, adult; E78.5 Hyperlipidemia, unspecified; R54 Age-related physical debility; T45.1X5A Adverse effect of antineoplastic and immunosuppressive drugs, initial encounter; X58.XXXA Exposure to other specified factors, initial encounter; J98.4 Other disorders of lung; B96.20 Unspecified Escherichia coli [E. coli] as the cause of diseases classified elsewhere; E83.42 Hypomagnesemia; E87.6 Hypokalemia; F41.9 Anxiety disorder, unspecified; G89.29 Other chronic pain; M54.9 Dorsalgia, unspecified; K21.9 Gastro-esophageal reflux disease without esophagitis; Z79.01 Long term (current) use of anticoagulants; Z79.52 Long term (current) use of systemic steroids; Z79.890 Hormone replacement therapy; Z79.899 Other long term (current) drug therapy; Z85.01 Personal history of malignant neoplasm of esophagus; Z85.43 Personal history of malignant neoplasm of ovary; Z87.891 Personal history of nicotine dependence; Z88.0 Allergy status to penicillin; Z90.710 Acquired absence of both cervix and uterus; Z98.51 Tubal ligation status; Z88.1 Allergy status to other antibiotic agents; Z96.659 Presence of unspecified artificial knee joint
CPT/HCPCS: 36415; 71045; 71250; 71275; 76604; 80048; 80053; 81001; 83605; 83735; 83880; 84145; 84484; 85025; 85610; 85730; 86140; 87077; 87086; 87186; 93005; 94640; 94760; 96374; 96375; 96376; 99285